=== PATIENT | male | born 1940 | race Caucasian/White ===

== ENCOUNTER → 2018-05-23 | Outpatient (CLI) | payer MEDICARE ==
--- NOTE | 2018-05-23 17:51 | CONS ---
CONSULTATION DATE OF SERVICE: 05/23/2018. A 77-year-old gentleman has been evaluated in sleep center for possible obstructive sleep apnea-hypopnea syndrome. HISTORY OF PRESENT ILLNESS/SLEEP-WAKE EVALUATION: Patient usual sleep schedule from 11:30-midnight until 7:15-8:00 a.m. basically 7 days a week. No problem with falling asleep. No TV in bedroom. Patient sleeps with his and according to her he snores. He wakes up from sleep once with nocturia. He sometimes takes 1 nap during the day from around 1 p.m. to 2:00 p.m. [place] Sleepiness Scale is 5. No history of hypnagogic hallucinations, sleep paralysis or cataplexy. PAST MEDICAL HISTORY: Positive for coronary artery disease, hypertension, hyperlipidemia, colon and rectal CA. Patient has short episodes of extra beats recently has been evaluated by swim coach for possibility of cardiac arrhythmias with Holter monitor. PAST SURGICAL HISTORY: Stent insertion to coronary artery, surgery for colorectal CA, colostomy, presently surgery for right hand middle finger, surgical treatment of skin CA. MEDICATIONS: Metoprolol, spironolactone, lisinopril, aspirin, atorvastatin, and Eliquis. SOCIAL HISTORY: Negative for smoking or using alcohol. FAMILY HISTORY: Positive for hypertension, heart problems, cancer. REVIEW OF SYSTEMS: Occasional awakenings from sleep, sometimes sleepiness during the day. PHYSICAL EXAM: GENERAL 77-year-old gentleman without distress. VITAL SIGNS BP of 130/75, HR 52, RR 14, height 5 feet 6 inches, weight 210.2, body mass index 33.8, temperature 97.9, oxygen saturation on room air 98%. HEENT PERRLA, EOMI, evaluation of oropharynx showed moderately to extremely low position of soft palate, wide pillars, small oropharyngeal air space. Slight restriction of nasal breathing bilaterally. Neck Supple, no JVD. Thyroid is not palpable. Wide neck 17 inches in circumference. LUNGS Clear to percussion and to auscultation. Good air exchange. No wheezing or rhonchi. HEART S1, S2 regular. No murmurs, gallops, or rubs. ABDOMEN Obese. Soft and nontender. Bowel sounds are present. No organomegaly appreciated. EXTREMITIES No clubbing or cyanosis. A P MECHANIC Awake, alert, and oriented X3. Cranial nerves 2 to 7 intact. There is no fasciculation or atrophy. noted. No focal deficits observed. IMPRESSION: 1. Snoring, wide neck, small oropharyngeal air space, awakenings with nocturia, sometimes sleepiness during the day with nap. Possible obstructive sleep apnea- hypopnea syndrome. 2. Obesity, BMI 33.8. 3. Hypertension. 4. Coronary artery disease, status post stent insertion. 5. Hyperlipidemia. 6. History of colorectal carcinoma, status post surgical treatment, presently, colostomy. 7. Hyperlipidemia. 8. History of skin carcinoma treated surgically on the left arm. 9. Status post surgical treatment of finger of right hand. PLAN: 1. Polysomnography for evaluation of patient's breathing during sleep. 2. CPAP/BiPAP titration if sleep study confirms obstructive sleep apnea-hypopnea syndrome. 3. Preferable position during sleep on the side. 4. No driving if patient feels any sleepiness. 5. I will see patient for follow up visit to explain results of testing and following plan. Thank you very much for referring this patient for consultation. Sincerely, Kevin Moody MD, PhD, FAASM Diplomat of [employer] Rounding Machine Operator of [facility] [place] MMODL / IJN: [id number] /
== END | disposition home or self-care (01) ==
LOC: SLEEP 15:31
PROVIDERS: ATTEND Internal Medicine
DX: R06.83 Snoring (principal); R35.1 Nocturia; J39.2 Other diseases of pharynx; I25.10 Atherosclerotic heart disease of native coronary artery without angina pectoris; I10 Essential (primary) hypertension; E78.5 Hyperlipidemia, unspecified; E66.9 Obesity, unspecified; Z85.048 Personal history of other malignant neoplasm of rectum, rectosigmoid junction, and anus; Z93.3 Colostomy status; Z95.5 Presence of coronary angioplasty implant and graft; Z85.828 Personal history of other malignant neoplasm of skin; Z79.82 Long term (current) use of aspirin; Z79.02 Long term (current) use of antithrombotics/antiplatelets; Z79.899 Other long term (current) drug therapy; Z68.33 Body mass index [BMI] 33.0-33.9, adult; Z79.01 Long term (current) use of anticoagulants; Z85.038 Personal history of other malignant neoplasm of large intestine
CPT/HCPCS: 99211

== ENCOUNTER → 2018-09-19 | Outpatient (CLI) | payer MEDICARE ==
--- NOTE | 2018-09-19 15:14 | PN ---
PROGRESS NOTE DATE OF SERVICE: 09/19/2018 A 77-year-old gentleman who has been followed in the Sleep Center for treatment of obstructive sleep apnea-hypopnea syndrome. Recently patient had diagnostic polysomnogram and CPAP titration. I discussed results of sleep studies with patient in detail. He has severe sleep apnea and with CPAP respiration was fully normalized. Today is his first visit after he received CPAP unit. He is able to use equipment every night for the whole night without significant problems related to mask fitting, pressure or humidification. [place] Sleepiness Scale today 7, which is normal. I checked his CPAP unit. CPAP pressure is 6 cm of water. Usage is 100% of the time more than 4 hours every 6.6 hours per night. Leak only 6 L per minute which is normal. . Apnea-hypopnea index was 1.0, which is perfect. MEDICATIONS: Metoprolol, lisinopril, aspirin, tamsulosin, atorvastatin, Eliquis, spironolactone, finasteride. PHYSICAL EXAM: Patient in no distress. BP 106/63, HR 56, RR 18, weight 213.8, temperature 97.6. OROPHARYNX: Extremely low position of soft palate. ABDOMEN: Slightly obese, colostoma. Neck Supple, no JVD. Thyroid is not palpable. LUNGS Clear to percussion and to auscultation. Good air exchange. No wheezing or rhonchi. HEART S1, S2 regular. No murmurs, gallops, or rubs. EXTREMITIES No clubbing or cyanosis. TELEPHONE SERVICE REPRESENTATIVE Awake, alert, and oriented X3. Cranial nerves 2 to 7 intact. There is no fasciculation or atrophy. noted. No focal deficits observed. IMPRESSION: 1. Severe obstructive sleep apnea-hypopnea syndrome, apnea-hypopnea index 41.3 with oxygen desaturation to 77.6% on full control with CPAP at 6 cm of water. Patient demonstrated 100% compliance with treatment, benefitting from treatment. 2. Hypertension. 3. Coronary artery disease, status post stent insertion. 4. History of colorectal CA, status post surgical treatment, colostoma. PLAN: 1. Patient will continue to use CPAP equipment every night for the whole night. 2. Watching weight. 3. Sleep hygiene with regular time in bed for at least 8 hours. 4. No driving if feeling sleepiness. 5. Will maintain prescription for all necessary CPAP supplies including mask, tube, filters. 6. Followup visit in 1 year. Thank you very much for allowing me to participate in the management of your patient. Sincerely, Kevin Moody MD, PhD, FAASM Diplomat of [employer] Personnel Arbitrator of [facility] [place] MMDIANEL / REINA: [id number] /
== END | disposition home or self-care (01) ==
LOC: SLEEP 10:19
PROVIDERS: ATTEND Internal Medicine
DX: G47.33 Obstructive sleep apnea (adult) (pediatric) (principal); I10 Essential (primary) hypertension; I25.10 Atherosclerotic heart disease of native coronary artery without angina pectoris; Z85.038 Personal history of other malignant neoplasm of large intestine; Z85.048 Personal history of other malignant neoplasm of rectum, rectosigmoid junction, and anus; Z95.5 Presence of coronary angioplasty implant and graft; Z99.89 Dependence on other enabling machines and devices; Z98.890 Other specified postprocedural states; Z79.82 Long term (current) use of aspirin; Z79.01 Long term (current) use of anticoagulants; Z79.899 Other long term (current) drug therapy

== ENCOUNTER 2019-06-11 06:56 | Day surgery (SDC) | payer MEDICARE ==
[2019-06-07 09:47] VITALS: BMI 34.3
[~2019-06-11 06:56] MED LIST: LACTATED RINGERS 1,000 ML IV SCH; LIDOCAINE 1% 20 ML VIAL (10MG/ML) FOR IV START INTRADERMA PRN
[2019-06-11 07:13] VITALS: TEMP 97.6
[2019-06-11] MEDS ORDERED: PROPOFOL 10 MG/ML 20 ML VIAL IV ONE (07:30)
[2019-06-11] MEDS ORDERED: LIDOCAINE 1% INJ 10MG/ML (20 ML MDV) ONE (07:30)
--- NOTE | 2019-06-11 07:53 | P.GSHP ---
History of Present Illness H&P Date: 06/11/19 Chief Complaint: History of rectal cancer This a 70-year-old male presents today for colonoscopy. Patient has. History of rectal cancer and abdominal perineal resection. Past Medical History Past Medical History: Coronary Artery Disease (CAD), Cancer, COPD, Deep Vein Thrombosis (DVT), Hyperlipidemia, Hypertension, Sleep Apnea/CPAP/BIPAP Additional Past Medical History / Comment(s): hx.colon cancer, SKIN CANCER colostomy, History of Any Multi-Drug Resistant Organisms: None Reported Past Surgical History: Adenoidectomy, Heart Catheterization With Stent, Hernia Repair, Tonsillectomy Additional Past Surgical History / Comment(s): colostomy Past Anesthesia/Blood Transfusion Reactions: No Reported Reaction Date of Last Stent Placement:: 2011 Smoking Status: Never smoker - Past Family History Mother Family Medical History: Cancer Additional Family Medical History / Comment(s): breast cancer Medications and Allergies Home Medications Medication Instructions Recorded Confirmed Type Aspirin [Adult Low Dose Aspirin EC] 81 mg PO DAILY 05/24/16 06/11/19 History Atorvastatin [Lipitor] 40 mg PO HS 05/24/16 06/11/19 History Lisinopril [Zestril] 20 mg PO DAILY 05/24/16 06/11/19 History Apixaban [Eliquis] 5 mg PO BID 06/07/19 06/11/19 History Finasteride [Proscar] 5 mg PO DAILY 06/07/19 06/11/19 History Metoprolol Succinate [Toprol Xl] 50 mg PO DAILY 06/07/19 06/11/19 History Spironolactone [Aldactone] 25 mg PO DAILY 06/07/19 06/11/19 History Tamsulosin [Flomax] 0.4 mg PO HS 06/07/19 06/11/19 History Allergies Allergy/AdvReac Type Severity Reaction Status Date / Time No Known Allergies Allergy Verified 06/07/19 09:11 Surgical - Exam Vital Signs Temp Pulse Resp BP 97.6 F 69 14 133/71 06/11/19 07:12 06/11/19 07:12 06/11/19 07:12 06/11/19 07:12 - General well developed, well nourished, no distress - Eyes PERRL - ENT normal pinna - Neck no masses - Respiratory normal expansion - Cardiovascular Rhythm: regular - Abdomen Abdomen: soft, non tender Assessment and Plan Assessment: History of rectal cancer. We'll perform colonoscopy.
--- NOTE | 2019-06-11 08:09 | P.OP ---
Date of Procedure: 06/11/19 Preoperative Diagnosis: Rectal cancer Postoperative Diagnosis: Diverticulosis Procedure(s) Performed: Colonoscopy Anesthesia: MAC Surgeon: Jostin Bui Pathology: none sent Condition: stable Description of Procedure: The patient's placed on the endoscopy table in supine position. He had a previous abdominoperineal resection. The patient's colostomy was in the left lower quadrant. There was some evidence of stenosis of the skin. Digital exam was performed. The colonoscope was then placed patient's colostomy and passed with colon. Scope could not be passed beyond the transverse colon secondary to tortuosity valve. Scope was withdrawn there is extensive diverticular changes of the transverse colon and descending colon. There is known to any polyps or tumors. Scope was withdrawn for patient.
[2019-06-11 08:14] VITALS: RESP 16
[2019-06-11 08:29] VITALS: BP 108/63; PULSE 84
== END 2019-06-11 08:48 | disposition home or self-care (01) ==
LOC: ORWHC2ENDO 06:56
PROVIDERS: ATTEND Surgery
DX: Z85.048 Personal history of other malignant neoplasm of rectum, rectosigmoid junction, and anus (principal); K57.30 Diverticulosis of large intestine without perforation or abscess without bleeding; E78.5 Hyperlipidemia, unspecified; I10 Essential (primary) hypertension; I25.10 Atherosclerotic heart disease of native coronary artery without angina pectoris; J44.9 Chronic obstructive pulmonary disease, unspecified; Z85.828 Personal history of other malignant neoplasm of skin; Z86.718 Personal history of other venous thrombosis and embolism; Z93.3 Colostomy status; Z99.89 Dependence on other enabling machines and devices; Z95.5 Presence of coronary angioplasty implant and graft; Z80.3 Family history of malignant neoplasm of breast; Z86.711 Personal history of pulmonary embolism; G47.33 Obstructive sleep apnea (adult) (pediatric); Z79.899 Other long term (current) drug therapy; Z79.01 Long term (current) use of anticoagulants; Z79.82 Long term (current) use of aspirin
CPT/HCPCS: 44388; J2001; J2704

== ENCOUNTER → 2019-08-08 | Outpatient (CLI) | payer MEDICARE ==
--- NOTE | 2019-08-08 12:05 | PN ---
PROGRESS NOTE DATE OF SERVICE: 08/08/2019 This is a 78-year-old gentleman who has been followed in the Sleep Center for treatment of obstructive sleep apnea-hypopnea syndrome. The patient continued to use his CPAP equipment on practically every night. She missed several nights during this month because she had flu symptoms and significant discharges from the nose. [place] Sleepiness Scale is 6, which is normal. I checked his CPAP unit. CPAP pressure is 6 cm of water. Usage is 24/30 nights for more than 4 hours and total usage 27/30 nights. Average usage is 6 hours per night. Leak is only 2 L/minute. Apnea-hypopnea index only 0.9 which is absolutely perfect. MEDICATIONS: , tamsulosin, Eliquis, Atorvastatin, Spironolactone, metoprolol, lisinopril, aspirin. PHYSICAL EXAM: Patient in no distress. BP 113/50, HR 48, RR 16, height 5 foot, 6 inches, weight 210 pounds which is 3 pounds less than during the previous visit one year ago. Body mass index 33.8, temperature 97.5, oxygen saturation at room air 98%. Oropharynx extremely low soft palate, Mallampati 4. HEART: S1, S2, bradycardia. ABDOMEN: Slightly obese. NECK: Supple, no JVD. Thyroid is not palpable. LUNGS: Clear to percussion and to auscultation. Good air exchange. No wheezing or rhonchi. EXTREMITIES: No clubbing or cyanosis. DIRECTOR DATA ARCHITECTURE: Awake, alert, and oriented X3. Cranial nerves 2 to 7 intact. There is no fasciculation or atrophy. noted. No focal deficits observed. IMPRESSION: 1. Severe obstructive sleep apnea-hypopnea syndrome; apnea-hypopnea index 41.3 on full control with CPAP at the pressure of 6 cm of water. Patient demonstrated great compliance with treatment. benefitting from treatment. 2. Hypertension. 3. Coronary artery disease, status post stent insertion. 4. History of for colorectal carcinoma, status post surgical treatment. 5. Status post reversed colostomy. 6. Status post tonsillectomy. 7. Status post hernia repair. PLAN: 1. Patient will continue to use CPAP equipment every night for the whole night. 2. Prescription for all necessary CPAP supplies including mask, tube, filters. 3. Watching and losing weight. 4. Sleep hygiene with regular time in bed for 7.5 to 8 hours. 5. No driving if feeling sleepiness. 6. Followup visit in 1 year or earlier if patient has any problems. Thank you very much for allowing me to participate in the management of your patient. Sincerely, Kevin Moody MD, PhD, FAASM Diplomat of [employer] Wash Test Checker of [facility] [place] MMODL / SHARRIN: [id number] /
== END | disposition home or self-care (01) ==
LOC: SLEEP 10:37
PROVIDERS: ATTEND Internal Medicine
DX: G47.33 Obstructive sleep apnea (adult) (pediatric) (principal); I10 Essential (primary) hypertension; I25.10 Atherosclerotic heart disease of native coronary artery without angina pectoris; Z90.89 Acquired absence of other organs; Z95.5 Presence of coronary angioplasty implant and graft; Z85.038 Personal history of other malignant neoplasm of large intestine; Z85.048 Personal history of other malignant neoplasm of rectum, rectosigmoid junction, and anus; Z98.890 Other specified postprocedural states; Z99.89 Dependence on other enabling machines and devices; Z79.01 Long term (current) use of anticoagulants; Z79.82 Long term (current) use of aspirin; Z79.899 Other long term (current) drug therapy

== ENCOUNTER → 2020-03-23 | Outpatient (CLI) | payer MEDICARE ==
--- NOTE | 2020-03-23 15:28 | XR ---
EXAMINATION TYPE: XR chest 2V DATE OF EXAM: 03/23/2020 COMPARISON: Chest x-ray December 21, 2012. HISTORY: Dry cough. TECHNIQUE: Frontal and lateral views of the chest are obtained. FINDINGS: There is no focal air space opacity, pleural effusion, or pneumothorax seen. The cardiac silhouette size is within normal limits with atherosclerotic change in ectatic thoracic aorta now rajiv ntified. The osseous structures are intact. IMPRESSION: No suspicious acute pulmonary process.
--- NOTE | 2020-03-23 15:41 | US ---
EXAMINATION TYPE: US kidneys/renal and bladder DATE OF EXAM: 03/23/2020 COMPARISON: NONE CLINICAL HISTORY: N18.9 Chronic kidney disease. CKD EXAM MEASUREMENTS: Right Kidney: 9.3 x 4.6 x 5.1 cm Left Kidney: 10.0 x 4.5 x 4.1 cm Right Kidney: anechoic area seen laterally sub centimeter and echogenic area inf measuring 2 cm. Left Kidney: Echogenic area seen mid pole 1.4 cm. Bladder: Anechoic Bilateral Jets seen: No There is no evidence for hydronephrosis at this point in time. Possible nonobstructing bilateral re nal calculi lower pole right kidney and midpole of the left kidney. The urinary bladder is anechoic. IMPRESSION: No hydronephrosis is evident bilaterally. Consider abdominal KUB x-ray correlation for po ssible nonobstructing bilateral renal calculi.
== END | disposition home or self-care (01) ==
LOC: RADUSWWP 14:51
PROVIDERS: ATTEND Family Medicine
DX: N18.9 Chronic kidney disease, unspecified (principal); R91.8 Other nonspecific abnormal finding of lung field; R05 Cough
CPT/HCPCS: 71046; 76770

== ENCOUNTER → 2020-09-23 | Outpatient (CLI) | payer MEDICARE ==
--- NOTE | 2020-09-23 20:18 | SFUN ---
SLEEP CENTER FOLLOW UP NOTE DATE OF SERVICE: 09/23/2020 This is a 79-year-old gentleman who has been followed in Sleep Center for treatment of obstructive sleep apnea-hypopnea syndrome. The patient is successfully continuing to use his CPAP equipment every night. He sleeps well with it. No snoring. [place] Sleepiness Scale today is 5, which is normal. I checked his CPAP unit. CPAP pressure is 6 cm of water. Usage is 25/30 nights for more than 4 hours. Average usage is 5.7 hours per night. Otherwise, 27/30 nights. Leak is 5 L/minute, which is normal. Apnea-hypopnea index is only 0.4, which is perfect. MEDICATIONS: 1. Eliquis 5 mg twice a day. 2. Atorvastatin 40 mg once a day. 3. Spironolactone 25 mg once a day. 4. Lisinopril 20 mg once a day. 5. Aspirin 81 mg once a day. PHYSICAL EXAMINATION: GENERAL: A pleasant patient in no distress. VITAL SIGNS: BP 123/80, HR 60, RR 15, height 5 feet 6 inches, weight 194, BMI 31.3, temperature 97.7, oxygen saturation at room air 97%. HEENT: PERRLA, EOMI. Evaluation of oropharynx showed tongue protrudes midline. Extremely low position of soft palate. Mallampati IV. NECK: Supple. No JVD. Thyroid is not palpable. LUNGS: Clear to percussion and to auscultation. Good air exchange. No wheezing or rhonchi. HEART: S1, S2 regular. No murmurs, gallops or rubs. ABDOMEN: Soft and nontender. Bowel sounds are present. No organomegaly appreciated. EXTREMITIES: No clubbing or cyanosis. STEELWORKER: Awake, alert, and oriented X3. Cranial nerves 2 to 7 intact. There is no fasciculation or atrophy. noted. No focal deficits observed. IMPRESSION: 1. Severe obstructive sleep apnea-hypopnea syndrome; apnea-hypopnea index 41.3. The patient demonstrated great compliance with treatment. Normal respiration on CPAP. 2. Hypertension. 3. Coronary artery disease, status post stent insertion. 4. History of colorectal carcinoma, status post surgical treatment. 5. Status post reversed colostomy. 6. Status post tonsillectomy. 7. Status post hernia repair. PLAN: 1. Patient will continue to use PAP equipment every night for the whole night. 2. Sleep hygiene with regular time in bed for at least 7-1/2 to 8 hours. 3. Precautions related to driving. No driving if feeling sleepiness. 4. I will maintain all necessary prescription for PAP supplies including mask, tube, filters. 5. Watching weight. 6. No driving if feeling sleepiness. 7. Follow-up visit in 6 months or earlier if patient has any problems. Thank you very much for allowing me to participate in the management of your patient. Sincerely, Kevin Moody MD, PhD, FAASM Diplomat of [employer] [employer] Oyster Bed Worker of [facility] [place] MMODL / IJN: [id number] /
== END | disposition home or self-care (01) ==
LOC: SLEEP 16:38
PROVIDERS: ATTEND Internal Medicine
DX: G47.33 Obstructive sleep apnea (adult) (pediatric) (principal); I10 Essential (primary) hypertension; I25.10 Atherosclerotic heart disease of native coronary artery without angina pectoris; Z95.5 Presence of coronary angioplasty implant and graft; Z99.89 Dependence on other enabling machines and devices; Z79.01 Long term (current) use of anticoagulants; Z79.899 Other long term (current) drug therapy; Z79.891 Long term (current) use of opiate analgesic; Z79.82 Long term (current) use of aspirin; Z98.890 Other specified postprocedural states

== ENCOUNTER → 2021-03-12 | Outpatient (CLI) | payer MEDICARE ==
--- NOTE | 2021-03-12 15:20 | FL ---
EXAMINATION TYPE: FL UGI air DATE OF EXAM: 03/12/2021 COMPARISON: NONE HISTORY: 80-year-old male are 1 1.2, nausea and vomiting TECHNIQUE: A double contrast UGI study is performed. A total of 2 minutes 0 seconds of fluoroscopic time was utilized during procedure and 82 images obtai pio. FINDINGS: The esophagus shows normal motility and emptying into the stomach. No evidence of stricture. There is a moderate-sized hiatal hernia. Unable to elicit any reflux during the course of the exam. The stomach shows normal distensibility, peristalsis, and mucosal folds. However, along the greater curvature at the level of the mid gastric body, there is questionable filling defect versus normal co ntour abnormality. For example, refer to image 63 of 82. The duodenal bulb, sweep, and proximal small bowel loops are unremarkable. IMPRESSION: 1. Moderate-sized hiatal hernia. Unable to elicit gastroesophageal reflux during the course of the ex am. 2. Questionable filling defect along the greater curvature of the mid gastric body. Recommend direct visualization to exclude a mucosal lesion/neoplasm here.
== END | disposition home or self-care (01) ==
LOC: RADUSWWP 09:47
PROVIDERS: ATTEND Family Medicine
DX: K44.9 Diaphragmatic hernia without obstruction or gangrene (principal); K21.9 Gastro-esophageal reflux disease without esophagitis
CPT/HCPCS: 74246

== ENCOUNTER 2021-03-30 11:38 | Inpatient (IN) | payer MEDICARE ==
[2021-03-30] MEDS ORDERED: ALPRAZolam 0.25 MG TAB PO PRN (18:03)
[2021-03-30] MEDS ORDERED: ALPRAZolam 0.5 MG TAB PO PRN (18:03)
[2021-03-30] MEDS ORDERED: NITROGLYCERIN SL TABS 0.4 MG TAB SUBLINGUAL PRN (18:03)
[2021-03-30] MEDS ORDERED: SODIUM CHLORIDE 0.9% 1,000 ML in EMPTY BAG 1 BAG IV ONE (18:03)
[2021-03-30 19:06] LABS: Basophils % (A) 0 %; Eosinophils # (A) 0.2 k/uL (0-0.7); Eosinophils % (A) 4 %; HCT 26.4 % (39.0-53.0); Lymphocytes # (A) 0.7 k/uL (1.0-4.8); Lymphocytes % (A) 15 %; MCH 30.9 pg (25.0-35.0); MCHC 34.2 g/dL (31.0-37.0); MCV 90.4 fL (80.0-100.0); Mean Platelet Volume 8.4; Monocytes # (A) 0.5 k/uL (0-1.0); Monocytes % (A) 11 %; Neutrophils # (A) 3.4 k/uL (1.3-7.7); Neutrophils % (A) 69 %; Platelet Count 116 k/uL (150-450); RBC 2.92 m/uL (4.30-5.90); RDW 14.3 % (11.5-15.5); WBC 4.9 k/uL (3.8-10.6)
[2021-03-30 19:07] LABS: Calcium 8.6 mg/dL (8.4-10.2); Potassium 4.7 mmol/L (3.5-5.1)
[2021-03-30] MEDS: METOPROLOL TARTRATE 25 MG TAB PO SCH (20:26)
[2021-03-30] MEDS: HEPARIN SODIUM,PORCINE/PF 5,000 UNIT/0.5 ML SYRINGE SQ SCH (20:26)
[2021-03-30] MEDS: AMIODARONE 200 MG TAB PO SCH (20:26)
[2021-03-30] MEDS ORDERED: FERROUS SULFATE 325 MG TAB PO SCH (21:00)
[2021-03-31] MEDS ORDERED: ATORVASTATIN 80 MG TAB PO ONE (06:00)
[2021-03-31] MEDS ORDERED: ASPIRIN 325 MG TAB PO ONE (06:00)
[2021-03-31] MEDS: ATORVASTATIN 40 MG TAB PO SCH (06:10)
[2021-03-31] MEDS: CLOPIDOGREL 75 MG TAB PO SCH (06:16)
[2021-03-31] MEDS: HEPARIN SODIUM,PORCINE/PF 5,000 UNIT/0.5 ML SYRINGE SQ SCH ×2 (06:16→20:15)
[2021-03-31] MEDS: LOSARTAN 25 MG TAB PO SCH (06:16)
[2021-03-31] MEDS: METOPROLOL TARTRATE 25 MG TAB PO SCH ×2 (06:16→20:15)
[2021-03-31] MEDS: PANTOPRAZOLE 40 MG TABLET PO SCH (06:16)
[2021-03-31] MEDS: AMIODARONE 200 MG TAB PO SCH ×3 (06:16→20:15)
[2021-03-31] MEDS: TAMSULOSIN 0.4 MG CAP.ER.24H PO SCH (06:16)
[2021-03-31] MEDS ORDERED: carvediloL 3.125 MG TAB PO SCH (07:30)
[2021-03-31] MEDS ORDERED: SPIRONOLACTONE 25 MG TAB PO SCH (09:00)
[2021-03-31] MEDS ORDERED: lisinopriL 10 MG TAB PO SCH (09:00)
[2021-03-31] MEDS ORDERED: IV FLUID CONTINUATION 1,000 ML IV ONE (09:09)
[2021-03-31] MEDS: MIDAZOLAM 2 MG/2 ML VIAL IVP ONE ×2 (09:14→09:16)
[2021-03-31] MEDS ORDERED: HEPARIN SODIUM 1,000 UN/ML (10ML VL) ONE (09:15)
[2021-03-31] MEDS ORDERED: LIDOCAINE 1% INJ 10MG/ML (20 ML MDV) SQ ONE (09:15)
[2021-03-31] MEDS ORDERED: HEPARIN SODIUM 1,000 UN/ML (10ML VL) IVP ONE (09:19)
[2021-03-31] MEDS ORDERED: fentaNYL (PF) 50 MCG/ML 2 ML AMP ONE (09:28)
[2021-03-31] MEDS ORDERED: fentaNYL (PF) 50 MCG/ML 2 ML AMP IVP ONE (09:29)
[2021-03-31] MEDS ORDERED: NITROGLYCERIN 1000MCG/10ML SYRINGE INTRACORON ONE (09:38)
[2021-03-31] MEDS ORDERED: MAG HYDROX/AL HYDROX/SIMETH 30 ML CUP PO PRN (09:43)
[2021-03-31] MEDS ORDERED: ZOLPIDEM 5 MG TAB PO PRN (09:43)
[2021-03-31] MEDS ORDERED: ATROPINE SULFATE 0.1 MG/ML 10ML SYRINGE IV PRN (09:43)
[2021-03-31] MEDS ORDERED: RX INFO: IV CONTRAST WAS GIVEN 1 EACH MISC MISCELLANE PRN (09:43)
[2021-03-31] MEDS ORDERED: IOPAMIDOL-370 125ML BTL INJ ONE (09:45)
[2021-03-31] MEDS ORDERED: SODIUM CHLORIDE 0.9% 1,000 ML IV SCH (09:45)
[2021-03-31] MEDS ORDERED: CLOPIDOGREL 75 MG TAB ONE (09:46)
[2021-03-31] MEDS ORDERED: CLOPIDOGREL 75 MG TAB PO ONE (09:50)
--- NOTE | 2021-03-31 10:43 | LTR ---
March 31, 2021 Dr. De Lenó Dear Dr. De León, Mr. Ministerio Mcdaniels was transferred yesterday from [facility] to [facility] where he underwent today successful stenting of the mid left anterior descending artery using drug-eluting stent with an excellent angiographic results and without any complication. Thank you for allowing me to participate in his care. MMCARLOS / SHARRIN: [id number] /
--- NOTE | 2021-03-31 10:43 | PTCA ---
PERCUTANEOUSTRANS CORORONARY ANGIOGRAPHY PERCUTANEOUS CORONARY INTERVENTION: DATE OF PROCEDURE: March 31, 2021 PERFORMING PHYSICIAN: Parker Salcedo MD. PROCEDURE PERFORMED: 1. Successful stenting of the mid left anterior descending artery using a 3.5 x 23 mm Xience drug-eluting stent with an excellent angiographic results and reduction of stenosis from 70% to 0%. INDICATION: This is an 80-year-old gentleman with coronary artery disease and prior stenting of the right coronary artery, who was admitted recently to [facility] with chest discomfort and ruled in for acute coronary syndrome. Because of that, a heart catheterization was advised. APPROACH: Right common femoral artery. COMPLICATION: None. LEVEL OF SEDATION: Moderate with sedation length of 25 minutes. PROCEDURE DESCRIPTION: After obtaining an informed consent, the patient was brought to the cardiac blood and plasma laboratory assistant. The right common femoral artery was cannulated using micropuncture technique under ultrasound guidance, the micropuncture wire passed easily then I placed a 6-[place] sheath at the right common femoral artery. At that point, anticoagulation was achieved using heparin with continuous ACT monitoring throughout the procedure. Subsequently, I did engage the left main using JL4 guide. I did wire the left main using a run-through wire. PTCA ballooning was performed using 3.0 x 15 mm balloon before I deployed the 5 x 23 mm Xience drug-eluting stent where the stent was positioned under fluoroscopic guidance and deployed under under 18 atmospheres for 20 seconds with the following angiogram showing excellent angiographic results. The procedure was completed without any complication. POSTPROCEDURE MANAGEMENT: 1. Dual anti-platelet therapy. 2. Aggressive cholesterol control. 3. Risk factor modifications. 4. Follow up with the patient. MMODL / IJN: [id number] /
[2021-03-31 12:32] VITALS: BMI 29.0
--- NOTE | 2021-03-31 13:04 | P.HPIM ---
History of Present Illness H&P Date: 03/30/21 Ministerio Mcdaniels, is an 80 year old male who was admitted to [facility] after presenting with chest pain and shortness of breath, he had elevated troponin, he was admitted to intensive care unit, patient had elevated BUN and creatinine, he was seen by nephrology and cardiology, he was maintained on IV heparin, patient was stabilized and was transferred to [facility] for cardiac catheterization. Review of Systems For HPI otherwise unremarkable Past Medical History Past Medical History: Coronary Artery Disease (CAD), Cancer, COPD, Deep Vein Thrombosis (DVT), Hyperlipidemia, Hypertension, Sleep Apnea/CPAP/BIPAP Additional Past Medical History / Comment(s): colon cancer, SKIN CANCER, colostomy History of Any Multi-Drug Resistant Organisms: None Reported Past Surgical History: Adenoidectomy, Heart Catheterization With Stent, Hernia Repair, Tonsillectomy Additional Past Surgical History / Comment(s): colostomy Past Anesthesia/Blood Transfusion Reactions: No Reported Reaction Date of Last Stent Placement:: 2008 Past Psychological History: No Psychological Hx Reported Smoking Status: Never smoker Past Alcohol Use History: None Reported Past Drug Use History: None Reported - Past Family History Mother Family Medical History: Cancer Additional Family Medical History / Comment(s): breast cancer Father Additional Family Medical History / Comment(s): valve replacement and pacemaker. Brother(s) Additional Family Medical History / Comment(s): CABG Medications and Allergies Home Medications Medication Instructions Recorded Confirmed Type Aspirin [Adult Low Dose Aspirin EC] 81 mg PO DAILY 05/24/16 03/30/21 History Atorvastatin [Lipitor] 40 mg PO DAILY 05/24/16 03/30/21 History Apixaban [Eliquis] 5 mg PO BID 06/07/19 03/30/21 History Spironolactone [Aldactone] 25 mg PO DAILY 06/07/19 03/30/21 History Carvedilol [Coreg] 3.125 mg PO AC-BID 03/30/21 03/30/21 History Ferrous Sulfate [Feosol] 325 mg PO BID 03/30/21 03/30/21 History Lisinopril [Zestril] 10 mg PO DAILY 03/30/21 03/30/21 History Allergies Allergy/AdvReac Type Severity Reaction Status Date / Time No Known Allergies Allergy Verified 03/30/21 17:06 Physical Exam Vitals: Vital Signs Temp Pulse Resp BP Pulse Ox 03/30/21 16:25 98.4 F 78 16 125/58 95 Intake and Output 03/30/21 03/30/21 03/30/21 06:59 14:59 22:59 Output Total 100 Balance -100 Output: Urine 100 Other: Voiding Method Indwelling Catheter Weight 84 kg In general patient is alert and oriented x 3 in no distress HEENT head normocephalic and atraumatic Neck is supple no JVD no goiter no lymphadenopathy no carotid bruit Chest examination is clear to auscultation no crackles no wheezing Cardiac exam reveals regular heart sounds S1 and S2 no gallops no murmurs Abdomen is soft nontender no organomegaly with normal bowel sounds Extremity exam reveals no edema no cyanosis or clubbing Neurological examination reveals no gross focal deficits Results CBC & Chem 7: 03/30/21 18:49 03/30/21 18:49 Thrombosis Risk Factor Assmnt - Choose All That Apply Any of the Below Risk Factors Present?: Yes Each Factor Represents 1 point: Obesity (BMI >25) Other Risk Factors: Yes Each Risk Factor Represents 3 Points: Age 75 years or older Other congenital or acquired thrombophilia - If yes, enter type in comment: No Thrombosis Risk Factor Assessment Total Risk Factor Score: 4 Thrombosis Risk Factor Assessment Level: Moderate Risk Assessment and Plan Assessment: 1. Acute coronary syndrome. Plans for cardiac catheterization on 03/31/2021 2. Ventricular tachycardia 3. Acute on chronic renal failure. Nephrology services have been consulted 4. History of essential hypertension 5. History of hyperlipidemia 6. History of coronary artery disease 7. History of colon cancer 8. History of anemia 9. History of COPD Continue normal saline at 75 Nephrology and cardiology services following Plans for cardiac catheterization 03/31/2031 Time with Patient: Greater than 30 (Greater than 60% of the total time spent in counseling and coordination of care)
--- NOTE | 2021-03-31 13:06 | P.PN ---
Subjective Progress Note Date: 03/31/21 Ministerio Mcdaniels, is an 80 year old male who was admitted to [facility] after presenting with chest pain and shortness of breath, he had elevated troponin, he was admitted to intensive care unit, patient had elevated BUN and creatinine, he was seen by nephrology and cardiology, he was maintained on IV heparin, patient was stabilized and was transferred to [facility] for cardiac catheterization. On 03/31/2021 patient is alert and oriented 3 currently resting flat in bed. Patient underwent cardiac catheterization today right femoral groin approach patient received stent to the LAD. Arterial sheath remains in place. Patient has been started on Plavix per cardiology services. At this time patient denies chest pain or shortness breath. Patient denies nausea vomiting or diarrhea. Patient denies any urinary burning or frequency Objective - Vital Signs Vital signs: Vital Signs Temp 97.8 F 03/31/21 08:05 Pulse 53 L 03/31/21 12:28 Resp 16 03/31/21 12:28 BP 104/70 03/31/21 12:28 Pulse Ox 99 03/31/21 12:28 Intake & Output 03/30/21 03/31/21 03/31/21 18:59 06:59 18:59 Intake Total 118 350 Output Total 100 700 250 Balance 18 -700 100 Weight 84 kg 84 kg 84 kg Intake: IV 350 Oral 118 0 Output: Urine 100 700 250 Other: Voiding Method Indwelling Catheter Indwelling Catheter Indwelling Catheter - Exam In general patient is alert and oriented x 3 in no distress HEENT head normocephalic and atraumatic Neck is supple no JVD no goiter no lymphadenopathy no carotid bruit Chest examination is clear to auscultation no crackles no wheezing Cardiac exam reveals regular heart sounds S1 and S2 no gallops no murmurs Abdomen is soft nontender no organomegaly with normal bowel sounds Extremity exam reveals no edema no cyanosis or clubbing Neurological examination reveals no gross focal deficits - Labs CBC & Chem 7: 03/30/21 18:49 03/30/21 18:49 Labs: Abnormal Lab Results - Last 24 Hours (Table) 03/30/21 03/30/21 Range/Units 18:49 18:49 RBC 2.92 L (4.30-5.90) m/uL Hgb 9.0 L D (13.0-17.5) gm/dL Hct 26.4 L (39.0-53.0) % Plt Count 116 L (150-450) k/uL Lymphocytes # 0.7 L (1.0-4.8) k/uL Sodium 136 L (137-145) mmol/L Chloride 109 H (98-107) mmol/L Carbon Dioxide 18 L (22-30) mmol/L BUN 30 H (9-20) mg/dL Creatinine 2.19 H (0.66-1.25) mg/dL Glucose 113 H (74-99) mg/dL Assessment and Plan Assessment: 1. Acute coronary syndrome. Status post cardiac cath with stent to the LAD 2. Ventricular tachycardia. patient started on amiodarone per cardiology 3. Acute on chronic renal failure. Nephrology services have been consulted 4. History of essential hypertension 5. History of hyperlipidemia 6. History of coronary artery disease 7. History of colon cancer 8. History of anemia 9. History of COPD Continue normal saline at 75 Nephrology and cardiology services following The labs ordered for a.m.
[2021-03-31 17:18] LABS: HCT 30.5 % (39.0-53.0); HGB 9.7 gm/dL (13.0-17.5); Hypochromasia Marked; MCHC 31.6 g/dL (31.0-37.0); Mean Platelet Volume 9.2; RBC 3.11 m/uL (4.30-5.90); RDW 14.3 % (11.5-15.5); WBC 6.9 k/uL (3.8-10.6)
[2021-03-31 17:22] LABS: MCV 98.2 fL (80.0-100.0)
[2021-03-31 17:23] LABS: Platelet Count 99 k/uL (150-450)
[2021-04-01] MEDS: PANTOPRAZOLE 40 MG TABLET PO SCH (06:33)
[2021-04-01 07:46] LABS: Calcium 8.8 mg/dL (8.4-10.2); Potassium 4.1 mmol/L (3.5-5.1)
[2021-04-01 07:47] LABS: Basophils % (A) 0 %; Eosinophils # (A) 0.1 k/uL (0-0.7); Eosinophils % (A) 2 %; HCT 27.3 % (39.0-53.0); Lymphocytes # (A) 0.9 k/uL (1.0-4.8); Lymphocytes % (A) 14 %; MCH 29.6 pg (25.0-35.0); Mean Platelet Volume 8.3; Monocytes # (A) 0.5 k/uL (0-1.0); Monocytes % (A) 8 %; Neutrophils # (A) 4.5 k/uL (1.3-7.7); Neutrophils % (A) 73 %; Platelet Count 140 k/uL (150-450); RBC 3.04 m/uL (4.30-5.90); RDW 14.6 % (11.5-15.5); WBC 6.2 k/uL (3.8-10.6)
[2021-04-01 07:51] LABS: MCV 89.7 fL (80.0-100.0)
[2021-04-01] MEDS: LOSARTAN 25 MG TAB PO SCH (09:01)
[2021-04-01] MEDS: ATORVASTATIN 40 MG TAB PO SCH (09:02)
[2021-04-01] MEDS: AMIODARONE 200 MG TAB PO SCH ×3 (09:02→23:24)
[2021-04-01] MEDS: CLOPIDOGREL 75 MG TAB PO SCH (09:02)
[2021-04-01] MEDS: ASPIRIN 81 MG PO SCH (09:02)
[2021-04-01] MEDS: TAMSULOSIN 0.4 MG CAP.ER.24H PO SCH (09:02)
[2021-04-01] MEDS: METOPROLOL TARTRATE 25 MG TAB PO SCH ×2 (09:02→20:24)
[2021-04-01] MEDS: HEPARIN SODIUM,PORCINE/PF 5,000 UNIT/0.5 ML SYRINGE SQ SCH ×2 (09:06→20:24)
--- NOTE | 2021-04-01 12:49 | CONS ---
CONSULTATION REASON FOR CONSULT: Renal failure. HISTORY OF PRESENT ILLNESS: The patient is an 80-year-old male who was transferred from [facility] for cardiac catheterization, which was done yesterday and coronary stent placement. The patient had initial catheterization on 03/29/2021 and was noted to have significant coronary artery disease and was transferred to [facility] for a stent placement. He did have his second cardiac catheterization yesterday with a coronary stent placed in the LAD. Patient was found to have acute kidney injury and bilateral obstructive uropathy with bilateral hydronephrosis and urine retention. He had a Meza catheter placed by Urology as the nursing staff was not able to place a Meza catheter. Renal function had improved with creatinine down from about 2.8 on initial admission to [facility] to 2.2. The patient is also maintained on IV fluids. His creatinine now is at 2.0. It appears that his Meza catheter was removed this morning and patient has not voided yet. Previous creatinine noted to be 1.3 on 09/07/2020. PAST MEDICAL HISTORY: Hypertension, coronary artery disease, COPD, DVT, hyperlipidemia, COPD and colon cancer with colostomy. PAST SURGICAL HISTORY: Adenoidectomy, cardiac catheterization, previous coronary stent, hernia repair, tonsillectomy, colostomy. SOCIAL HISTORY: Negative for smoking, drug abuse or alcohol abuse. MEDICATIONS: Medications at home prior to admission included aspirin, Lipitor, Eliquis, Aldactone, Coreg, iron, Zestril. ALLERGIES: NONE. REVIEW OF SYSTEMS: As per HPI. Other systems negative. No complaints of chest pains or shortness of breath. PHYSICAL EXAMINATION: Patient is comfortable, awake. He is alert and oriented x3, not in any acute distress. Blood pressure 116/45, heart rate 63 per minute, he is afebrile. Examination of the heart S1, S2. Examination of the lungs, bilateral breath sounds are heard. Abdomen is soft, nontender. Examination of lower extremities shows no evidence of edema. D[employer] exam grossly intact. LAB: Show sodium of 135, potassium 4.1, serum creatinine 2.0, BUN 22, hemoglobin 9.0 g/dL. ASSESSMENT: 1. Acute kidney injury, prerenal and obstructive uropathy. Renal function has improved with creatinine coming down to 2 from initial reading of about 2.8 at [facility]. Patient has been maintained on IV fluids. He also had a Meza catheter placed. However, this was removed this morning and we will continue to monitor. We will make sure that he is able to void prior to discharge. 2. Urine retention with bilateral hydronephrosis. Follow up with Urology as outpatient. If the patient fails the voiding trial, he will need to have the Meza catheter placed again prior to discharge. 3. Rule out chronic kidney disease. Previous creatinine 1.3 in 2019. 4. Status post acute myocardial infarction, status post coronary catheter and stent placement to LAD. Patient had a cardiac cath twice, which was on March 31 as well as March 29. PLAN: Check bladder scan and if found that patient is able to void prior to discharge, follow up with Urology and Nephrology post discharge. MMODL / IJN: [id number] /
--- NOTE | 2021-04-01 13:47 | P.PN ---
Subjective He is seen and examined resting comfortably laying flat in bed in no acute distress. Patient underwent successful stenting of the mid LAD yesterday with Dr. Salcedo. Blood pressure 116/45 heart rate 63 afebrile maintaining oxygen saturation on room air. Laboratory data reviewed, WBC 6.2, hemoglobin 9.0, platelets 140, sodium 135, potassium 4.1, creatinine 2.0. Currently maintained on amiodarone 200 mg 3 times a day, aspirin 81 mg daily, atorvastatin 40 mg daily, Plavix 75 mg daily, losartan 12.5 mg daily and Lopressor 25 mg twice a day. Echocardiogram from [facility] 45% global hypokinesia. Telemetry tracings reveal SR. He denies chest pain, shortness of breath, dizziness or palpitations. GENERAL: Well-appearing, well-nourished and in no acute distress. NECK: Supple without JVD or thyromegaly. LUNGS: Breath sounds clear to auscultation bilaterally. Respiration equal and unlabored. No wheezes, rales or rhonchi. HEART: Regular rate and rhythm without murmurs, rubs or gallops. S1 and S2 heard. EXTREMITIES: Normal range of motion, no edema. No clubbing or cyanosis. Peripheral pulses intact. Right femoral artery access site soft, non-tender, no bleeding or hematoma. ASSESSMENT NSTEMI Sustained monomorphic ventricular tachycardia Unstable angina Chronic kidney disease Hypertension Dyslipidemia PLAN Pt will require LifeVest secondary to sustained ventricular tachycardia in the setting of an acute IA to prevent sudden cardiac . Continue dual anti-platelet therapy. Ongoing telemetry monitoring. Nurse Practitioner note has been reviewed, I agree with a documented findings and plan of care. Patient was seen and examined. Objective - Vital Signs Vital signs: Vital Signs Temp 97.6 F 04/01/21 04:00 Pulse 63 04/01/21 04:00 Resp 18 04/01/21 04:00 BP 116/45 04/01/21 04:00 Pulse Ox 96 04/01/21 04:00 Intake & Output 03/31/21 04/01/21 04/01/21 18:59 06:59 18:59 Intake Total 350 240 Output Total 1275 900 Balance -925 -900 240 Weight 84 kg 87.5 kg Intake: IV 350 Oral 0 240 Output: Urine 1275 900 Other: Voiding Method Indwelling Catheter Indwelling Catheter - Labs CBC & Chem 7: 04/01/21 06:56 04/01/21 06:56 Labs: Abnormal Lab Results - Last 24 Hours (Table) 03/31/21 04/01/21 04/01/21 Range/Units 16:22 06:56 06:56 RBC 3.11 L 3.04 L (4.30-5.90) m/uL Hgb 9.7 L 9.0 L (13.0-17.5) gm/dL Hct 30.5 L 27.3 L (39.0-53.0) % Plt Count 99 L 140 L (150-450) k/uL Lymphocytes # 0.9 L (1.0-4.8) k/uL Sodium 135 L (137-145) mmol/L Chloride 109 H (98-107) mmol/L Carbon Dioxide 19 L (22-30) mmol/L BUN 22 H (9-20) mg/dL Creatinine 2.00 H (0.66-1.25) mg/dL
[2021-04-02] MEDS: PANTOPRAZOLE 40 MG TABLET PO SCH (06:24)
[2021-04-02 09:23] LABS: Calcium 8.7 mg/dL (8.4-10.2)
[2021-04-02] MEDS: HEPARIN SODIUM,PORCINE/PF 5,000 UNIT/0.5 ML SYRINGE SQ SCH ×2 (09:30→21:10)
[2021-04-02] MEDS: ATORVASTATIN 40 MG TAB PO SCH (09:31)
[2021-04-02] MEDS: TAMSULOSIN 0.4 MG CAP.ER.24H PO SCH (09:31)
[2021-04-02] MEDS: AMIODARONE 200 MG TAB PO SCH ×3 (09:31→21:10)
[2021-04-02] MEDS: CLOPIDOGREL 75 MG TAB PO SCH (09:31)
[2021-04-02] MEDS: ASPIRIN 81 MG PO SCH (09:31)
--- NOTE | 2021-04-02 09:39 | P.PN ---
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
--- NOTE | 2021-04-02 11:08 | P.PN ---
Subjective Progress Note Date: 04/01/21 Ministerio Mcdaniels, is an 80 year old male who was admitted to [facility] after presenting with chest pain and shortness of breath, he had elevated troponin, he was admitted to intensive care unit, patient had elevated BUN and creatinine, he was seen by nephrology and cardiology, he was maintained on IV heparin, patient was stabilized and was transferred to [facility] for cardiac catheterization. On 03/31/2021 patient is alert and oriented 3 currently resting flat in bed. Patient underwent cardiac catheterization today right femoral groin approach patient received stent to the LAD. Arterial sheath remains in place. Patient has been started on Plavix per cardiology services. At this time patient denies chest pain or shortness breath. Patient denies nausea vomiting or diarrhea. Patient denies any urinary burning or frequency On 04/01/2021 Patient was seen and examined on the medical floor, he is alert and oriented x 3 in no distress, he denies any complaints there is no fever or chills no headache or dizziness no chest pain no shortness of breath no palpitation no cough no nausea or vomiting no abdominal pain no diarrhea no blood in the stools no burning with urination no frequency or urgency and no hematuria, there is no weakness or numbness in any of the extremities no change in vision speech or gait. Objective - Vital Signs Vital signs: Vital Signs Temp 97.5 F L 04/01/21 08:00 Pulse 57 L 04/01/21 12:00 Resp 18 04/01/21 04:00 BP 105/54 04/01/21 12:00 Pulse Ox 100 04/01/21 12:00 Intake & Output 03/31/21 04/01/21 04/01/21 18:59 06:59 18:59 Intake Total 350 800 Output Total 1275 900 900 Balance -925 -900 -100 Weight 84 kg 87.5 kg Intake: IV 350 Oral 0 800 Output: Urine 1275 900 900 Other: Voiding Method Indwelling Catheter Indwelling Catheter Indwelling Catheter - Exam In general patient is alert and oriented x 3 in no distress HEENT head normocephalic and atraumatic Neck is supple no JVD no goiter no lymphadenopathy no carotid bruit Chest examination is clear to auscultation no crackles no wheezing Cardiac exam reveals regular heart sounds S1 and S2 no gallops no murmurs Abdomen is soft nontender no organomegaly with normal bowel sounds Extremity exam reveals no edema no cyanosis or clubbing Neurological examination reveals no gross focal deficits - Labs CBC & Chem 7: 04/01/21 06:56 04/02/21 08:31 Labs: Abnormal Lab Results - Last 24 Hours (Table) 03/31/21 04/01/21 04/01/21 Range/Units 16:22 06:56 06:56 RBC 3.11 L 3.04 L (4.30-5.90) m/uL Hgb 9.7 L 9.0 L (13.0-17.5) gm/dL Hct 30.5 L 27.3 L (39.0-53.0) % Plt Count 99 L 140 L (150-450) k/uL Lymphocytes # 0.9 L (1.0-4.8) k/uL Sodium 135 L (137-145) mmol/L Chloride 109 H (98-107) mmol/L Carbon Dioxide 19 L (22-30) mmol/L BUN 22 H (9-20) mg/dL Creatinine 2.00 H (0.66-1.25) mg/dL Assessment and Plan Assessment: 1. Acute coronary syndrome. Status post cardiac cath with stent to the LAD 2. Ventricular tachycardia. patient started on amiodarone per cardiology 3. Acute on chronic renal failure. Nephrology services have been consulted 4. History of essential hypertension 5. History of hyperlipidemia 6. History of coronary artery disease 7. History of colon cancer 8. History of anemia 9. History of COPD Continue normal saline at 75 Nephrology and cardiology services following The labs ordered for a.m.
--- NOTE | 2021-04-02 11:12 | P.PN ---
Subjective Progress Note Date: 04/02/21 Ministerio Mcdaniels, is an 80 year old male who was admitted to [facility] after presenting with chest pain and shortness of breath, he had elevated troponin, he was admitted to intensive care unit, patient had elevated BUN and creatinine, he was seen by nephrology and cardiology, he was maintained on IV heparin, patient was stabilized and was transferred to [facility] for cardiac catheterization. On 03/31/2021 patient is alert and oriented 3 currently resting flat in bed. Patient underwent cardiac catheterization today right femoral groin approach patient received stent to the LAD. Arterial sheath remains in place. Patient has been started on Plavix per cardiology services. At this time patient denies chest pain or shortness breath. Patient denies nausea vomiting or diarrhea. Patient denies any urinary burning or frequency On 04/01/2021 Patient was seen and examined on the medical floor, he is alert and oriented x 3 in no distress, he denies any complaints there is no fever or chills no headache or dizziness no chest pain no shortness of breath no palpitation no cough no nausea or vomiting no abdominal pain no diarrhea no blood in the stools no burning with urination no frequency or urgency and no hematuria, there is no weakness or numbness in any of the extremities no change in vision speech or gait. On 04/02/2021 patient is alert and oriented 3. Did discuss case with cardiology services patient to have quite fast in place prior to discharge. O rder has been placed awaiting LifeVest arrival. Per cardiology patient to be discharged on Plavix and aspirin. Hold eliquis for 1 month and then will address with cardiology services to resume. Patient is currently in sinus rhythm. At this time patient denies any chest pain or shortness of breath. Patient denies nausea vomiting or diarrhea. Patient denies any urinary burning or frequency. Patient did require Meza catheter to be reinserted this AM. Patient does follow with nephrology services outpatient and has required Meza catheter at home. Objective - Vital Signs Vital signs: Vital Signs Temp 98.8 F 04/01/21 20:00 Pulse 71 04/02/21 04:00 Resp 16 04/02/21 04:00 BP 93/47 04/02/21 04:00 Pulse Ox 100 04/02/21 04:00 Intake & Output 04/01/21 04/02/21 04/02/21 18:59 06:59 18:59 Intake Total 1140 480 Output Total 900 1890 Balance 240 -1890 480 Weight 80 kg Intake: Oral 1140 480 Output: Urine 900 1890 Other: Voiding Method Indwelling Catheter Indwelling Catheter - Exam In general patient is alert and oriented x 3 in no distress HEENT head normocephalic and atraumatic Neck is supple no JVD no goiter no lymphadenopathy no carotid bruit Chest examination is clear to auscultation no crackles no wheezing Cardiac exam reveals regular heart sounds S1 and S2 no gallops no murmurs Abdomen is soft nontender no organomegaly with normal bowel sounds Extremity exam reveals no edema no cyanosis or clubbing Neurological examination reveals no gross focal deficits - Labs CBC & Chem 7: 04/01/21 06:56 04/02/21 08:31 Labs: Abnormal Lab Results - Last 24 Hours (Table) 04/02/21 Range/Units 08:31 Sodium 135 L (137-145) mmol/L Chloride 108 H (98-107) mmol/L Carbon Dioxide 18 L (22-30) mmol/L BUN 24 H (9-20) mg/dL Creatinine 1.98 H (0.66-1.25) mg/dL Assessment and Plan Assessment: 1. Acute coronary syndrome. Status post cardiac cath with stent to the LAD 2. Ventricular tachycardia. patient started on amiodarone per cardiology 3. Acute on chronic renal failure. Nephrology services have been consulted. Current creatinine 1.98 and bun 24 4. History of essential hypertension 5. History of hyperlipidemia 6. History of coronary artery disease 7. History of colon cancer 8. History of anemia 9. History of COPD Continue normal saline at 75 Nephrology and cardiology services following Life vest ordered per cardiology prior to discharge
--- NOTE | 2021-04-02 11:21 | PN ---
PROGRESS NOTE Patient is seen for followup for acute kidney injury, mostly obstructive uropathy and currently also an element of contrast nephropathy as patient has had two cardiac catheterizations. He was transferred to [facility] from [facility] for a second cardiac catheterization and coronary artery stent placement. The patient's Meza catheter was removed yesterday. However, he was not able to void and, therefore, the catheter was placed again. Ultrasound at [facility] did show evidence of bilateral hydronephrosis. Patient is currently asymptomatic. He denies any significant complaints. There are plans for discharge today. PHYSICAL EXAMINATION: Blood pressure 93/47, heart rate 71 per minute. He is afebrile. Examination of the heart S1, S2. Examination of lungs, decreased breath sounds at bases. Abdomen is soft, nontender. Examination of lower extremities shows no evidence of edema. [employer] exam grossly intact. LAB: Show sodium 135, potassium 4.0, chloride 108, CO2 is 18, BUN 24, creatinine 1.98, hemoglobin 9.0 g/dL. ASSESSMENT: 1. Acute kidney injury on top of chronic kidney disease, baseline about 1.3 in September of 2020. The acute kidney injury is obstructive uropathy with possible prerenal component and currently with a component of acute tubular necrosis secondary to two cardiac catheterization and dye and contrast nephropathy. Renal function is stable. The patient can be discharged from nephrology standpoint with plans to follow up in about 1-2 weeks as outpatient. 2. Obstructive uropathy, bilateral hydronephrosis, urine retention, currently with indwelling Meza catheter. 3. Acute myocardial infarction status post cardiac catheterization x2 with coronary artery stent placement. 4. Benign prostatic hypertrophy maintained on Flomax, currently with indwelling Meza catheter. 5. Cardiomyopathy, ejection fraction of about 45%. 6. Wide-complex tachycardia on initial admission. PLAN: Patient can be discharged, follow up as outpatient in 1-2 weeks. MMODL / IJN: [id number] /
[2021-04-02] MEDS: LOSARTAN 25 MG TAB PO SCH (12:25)
[2021-04-02] MEDS: METOPROLOL TARTRATE 25 MG TAB PO SCH ×2 (12:25→21:10)
[2021-04-02] MEDS: DOCUSATE 100 MG CAP PO SCH (23:30)
[2021-04-03] MEDS: PANTOPRAZOLE 40 MG TABLET PO SCH (06:26)
[2021-04-03 07:44] LABS: Basophils % (A) 0 %; Eosinophils % (A) 0 %; HCT 29.1 % (39.0-53.0); HGB 9.6 gm/dL (13.0-17.5); Lymphocytes # (A) 0.7 k/uL (1.0-4.8); Lymphocytes % (A) 7 %; MCH 29.9 pg (25.0-35.0); MCHC 33.2 g/dL (31.0-37.0); MCV 90.2 fL (80.0-100.0); Mean Platelet Volume 8.5; Monocytes # (A) 0.8 k/uL (0-1.0); Monocytes % (A) 8 %; Neutrophils # (A) 7.6 k/uL (1.3-7.7); Neutrophils % (A) 82 %; Platelet Count 171 k/uL (150-450); RBC 3.22 m/uL (4.30-5.90); RDW 14.9 % (11.5-15.5); WBC 9.2 k/uL (3.8-10.6)
[2021-04-03 07:57] LABS: Albumin 3.2 g/dL (3.5-5.0); Calcium 8.7 mg/dL (8.4-10.2); Magnesium 1.5 mg/dL (1.6-2.3); Potassium 3.8 mmol/L (3.5-5.1); Total Bilirubin 0.7 mg/dL (0.2-1.3); Total Protein 5.8 g/dL (6.3-8.2)
[2021-04-03] MEDS: LOSARTAN 25 MG TAB PO SCH (08:25)
[2021-04-03] MEDS: AMIODARONE 200 MG TAB PO SCH ×3 (08:25→21:14)
[2021-04-03] MEDS: DOCUSATE 100 MG CAP PO SCH ×2 (08:25→19:40)
[2021-04-03] MEDS: ATORVASTATIN 40 MG TAB PO SCH (08:25)
[2021-04-03] MEDS: METOPROLOL TARTRATE 25 MG TAB PO SCH ×2 (08:25→19:40)
[2021-04-03] MEDS: CLOPIDOGREL 75 MG TAB PO SCH (08:25)
[2021-04-03] MEDS: TAMSULOSIN 0.4 MG CAP.ER.24H PO SCH (08:25)
[2021-04-03] MEDS: ASPIRIN 81 MG PO SCH (08:25)
[2021-04-03] MEDS: HEPARIN SODIUM,PORCINE/PF 5,000 UNIT/0.5 ML SYRINGE SQ SCH ×2 (08:26→19:40)
--- NOTE | 2021-04-03 09:24 | P.PN ---
Subjective Patient is seen in follow-up for acute kidney injury. Renal function is stable. Oral intake is poor. No chest pain or shortness of breath. Good urine output. Vital signs are stable. General: The patient appeared well nourished and normally developed. HEENT: Head exam is unremarkable. Neck is without jugular venous distension. LUNGS: Breath sounds decreased. HEART: Rate and Rhythm are regular. ABDOMEN: Soft, no distention. EXTREMITITES: No edema. Objective - Vital Signs Vital signs: Vital Signs Temp 98.2 F 04/03/21 08:22 Pulse 78 04/03/21 08:22 Resp 16 04/03/21 08:22 BP 103/59 04/03/21 08:22 Pulse Ox 96 04/03/21 08:50 Intake & Output 04/02/21 04/03/21 04/03/21 18:59 06:59 18:59 Intake Total 1200 200 240 Output Total 625 1070 Balance 575 -870 240 Weight 80.5 kg Intake: Oral 1200 200 240 Output: Urine 625 1070 Other: Voiding Method Indwelling Catheter # Voids 1 # Bowel Movements 1 - Labs CBC & Chem 7: 04/03/21 07:04 04/03/21 07:04 Labs: Abnormal Lab Results - Last 24 Hours (Table) 04/02/21 04/03/21 04/03/21 Range/Units 08:31 07:04 07:04 RBC 3.22 L (4.30-5.90) m/uL Hgb 9.6 L (13.0-17.5) gm/dL Hct 29.1 L (39.0-53.0) % Lymphocytes # 0.7 L (1.0-4.8) k/uL Sodium 135 L 131 L (137-145) mmol/L Chloride 108 H (98-107) mmol/L Carbon Dioxide 18 L 17 L (22-30) mmol/L BUN 24 H 25 H (9-20) mg/dL Creatinine 1.98 H 1.93 H (0.66-1.25) mg/dL Glucose 135 H (74-99) mg/dL Magnesium 1.5 L (1.6-2.3) mg/dL Total Protein 5.8 L (6.3-8.2) g/dL Albumin 3.2 L (3.5-5.0) g/dL Assessment and Plan Plan: Assessment: 1. Acute kidney injury secondary to ATN secondary to contrast-induced acute kidney injury as well as obstructive uropathy. Renal function stable. 2. Obstructive uropathy status post Meza catheter placement. 3. Acute myocardial infarction status post cardiac catheterization 2 with stent placement. 4. Hyponatremia secondary to acute kidney injury and poor solute intake. 5. Acute on chronic systolic CHF with ejection fraction of 45%. 6. Metabolic acidosis secondary to acute kidney injury. 7. Hypomagnesemia from poor intake. Plan: Add oral bicarbonate. 2 g IV magnesium sulfa today. 1500 mL fluid restriction. Encourage oral intake, particularly protein. Avoid nephrotoxins. Repeat electrolytes in the morning.
[2021-04-03] MEDS: MAGNESIUM SULFATE-D5W PMX 1 GM in DEXTROSE/WATER 1 100ML.BAG IVPB SCH ×2 (09:40→10:35)
[2021-04-03] MEDS ORDERED: DEXTROSE 5% IN WATER 100 ML with AMIODARONE 300 MG IV ONE (09:45)
[2021-04-03] MEDS: MEXILETINE 150 MG CAP PO SCH ×2 (10:12→21:14)
[2021-04-03] MEDS: SODIUM BICARBONATE TAB 650 MG TAB PO SCH ×3 (10:35→21:14)
--- NOTE | 2021-04-03 12:36 | P.PN ---
Progress Note - Text Procedure Synchronized electrical cardioversion for ventricular tachycardia, sustained an symptomatic with low blood pressure Diagnosis Ischemic cardio myopathy Recent cardiac stenting to the mid LAD Patient was admitted to [facility] with sustained fast and the tachycardia, greater than 200 bpm He has been on amiodarone for over a week He underwent coronary stenting to the mid LAD He has ischemic cardio myopathy with reduced LV systolic function of 45% This morning despite medical treatment for heart failure and amiodarone, he had a sustained episode of ventricular tachycardia with low blood pressure in the 80s Procedure Anesthesia was called for conscious sedation A 200 J biphasic shock converted the patient sinus rhythm Plan 1 dose of IV amiodarone 150 mg O1 to 2 hours Start mexiletine 150 mg 3 times a day Continue heart failure medications Cancel LifeVest Proceed with ICD implantation tomorrow Discussed with the patient and I discussed with anesthesia
--- NOTE | 2021-04-03 12:42 | P.PN ---
Progress Note - Text Patient was evaluated this morning He denies any chest discomfort. He feels weak and tired after the left cardioversion and ventricular tachycardia no orthopnea no angina On examination afebrile 98F, pulse rate in the 60s, blood pressure 94/56 mmHg Breath sounds are reduced bilaterally but there are no rhonchi no crackles Normal heart sounds normal S1 normal S2 No lower extremity edema Hemoglobin 9.6, normal white count of 9.2, rectal count of 171,000 Sodium 131, potassium 3.8, BUN 25 creatinine 1.93, improving Magnesium 1.5 Impression Ischemic cardio myopathy ejection fraction reportedly at 45% by 2-D echo at [facility] Ischemic cardio myopathy Recent non-Q-wave HI Stenting to the mid LAD Recurrent sustained ventricular tachycardia, hemodynamically significant Chronic kidney disease Hypomagnesemia Plan Continue aspirin and Plavix and statins for management of coronary artery disease status post HI Continue heart failure medications including beta blockers and losartan Add mexiletine to amiodarone IV magnesium followed by oral magnesium Proceed with dual-chamber ICD tomorrow for secondary prevention of sudden cardiac and management of bradycardia
[2021-04-03] MEDS ORDERED: MAGNESIUM SULFATE-D5W PMX 1 GM in DEXTROSE/WATER 1 100ML.BAG IVPB ONE (13:00)
[2021-04-03] MEDS ORDERED: ONDANSETRON 4 MG/2 ML VIAL IVP PRN (14:11)
--- NOTE | 2021-04-03 14:11 | P.PN ---
Subjective Progress Note Date: 04/03/21 Ministerio Mcdaniels, is an 80 year old male who was admitted to [facility] after presenting with chest pain and shortness of breath, he had elevated troponin, he was admitted to intensive care unit, patient had elevated BUN and creatinine, he was seen by nephrology and cardiology, he was maintained on IV heparin, patient was stabilized and was transferred to [facility] for cardiac catheterization. On 03/31/2021 patient is alert and oriented 3 currently resting flat in bed. Patient underwent cardiac catheterization today right femoral groin approach patient received stent to the LAD. Arterial sheath remains in place. Patient has been started on Plavix per cardiology services. At this time patient denies chest pain or shortness breath. Patient denies nausea vomiting or diarrhea. Patient denies any urinary burning or frequency On 04/01/2021 Patient was seen and examined on the medical floor, he is alert and oriented x 3 in no distress, he denies any complaints there is no fever or chills no headache or dizziness no chest pain no shortness of breath no palpitation no cough no nausea or vomiting no abdominal pain no diarrhea no blood in the stools no burning with urination no frequency or urgency and no hematuria, there is no weakness or numbness in any of the extremities no change in vision speech or gait. On 04/02/2021 patient is alert and oriented 3. Did discuss case with cardiology services patient to have quite fast in place prior to discharge. O rder has been placed awaiting LifeVest arrival. Per cardiology patient to be discharged on Plavix and aspirin. Hold eliquis for 1 month and then will address with cardiology services to resume. Patient is currently in sinus rhythm. At this time patient denies any chest pain or shortness of breath. Patient denies nausea vomiting or diarrhea. Patient denies any urinary burning or frequency. Patient did require Meza catheter to be reinserted this AM. Patient does follow with nephrology services outpatient and has required Meza catheter at home. On 04/03/2021 Patient was seen and examined on the medical floor, he is alert and oriented x 3 in no distress, he denies any complaints there is no fever or chills no headache or dizziness no chest pain no shortness of breath no palpitation no cough no nausea or vomiting no abdominal pain no diarrhea no blood in the stools no burning with urination no frequency or urgency and no hematuria, there is no weakness or numbness in any of the extremities no change in vision speech or gait. Patient had episodes of bradycardia and tachycardia this morning, he was reevaluated by Dr. Rogers and plan at this time we have changed to keeping patient in the hospital and proceeding with pacemaker defibrillator placement in a.m. tomorrow Objective - Vital Signs Vital signs: Vital Signs Temp 98.0 F 04/03/21 12:00 Pulse 59 L 04/03/21 13:45 Resp 16 04/03/21 13:45 BP 94/56 04/03/21 12:00 Pulse Ox 98 04/03/21 12:00 Intake & Output 04/02/21 04/03/21 04/03/21 18:59 06:59 18:59 Intake Total 1200 200 340 Output Total 625 1070 Balance 575 -870 340 Weight 80.5 kg Intake: Oral 1200 200 340 Output: Urine 625 1070 Other: Voiding Method Indwelling Catheter Indwelling Catheter # Voids 1 # Bowel Movements 1 - Exam In general patient is alert and oriented x 3 in no distress HEENT head normocephalic and atraumatic Neck is supple no JVD no goiter no lymphadenopathy no carotid bruit Chest examination is clear to auscultation no crackles no wheezing Cardiac exam reveals regular heart sounds S1 and S2 no gallops no murmurs Abdomen is soft nontender no organomegaly with normal bowel sounds Extremity exam reveals no edema no cyanosis or clubbing Neurological examination reveals no gross focal deficits - Labs CBC & Chem 7: 04/03/21 07:04 04/03/21 07:04 Labs: Abnormal Lab Results - Last 24 Hours (Table) 04/03/21 04/03/21 Range/Units 07:04 07:04 RBC 3.22 L (4.30-5.90) m/uL Hgb 9.6 L (13.0-17.5) gm/dL Hct 29.1 L (39.0-53.0) % Lymphocytes # 0.7 L (1.0-4.8) k/uL Sodium 131 L (137-145) mmol/L Carbon Dioxide 17 L (22-30) mmol/L BUN 25 H (9-20) mg/dL Creatinine 1.93 H (0.66-1.25) mg/dL Glucose 135 H (74-99) mg/dL Magnesium 1.5 L (1.6-2.3) mg/dL Total Protein 5.8 L (6.3-8.2) g/dL Albumin 3.2 L (3.5-5.0) g/dL Assessment and Plan Assessment: 1. Acute coronary syndrome. Status post cardiac cath with stent to the LAD 2. Ventricular tachycardia. patient started on amiodarone per cardiology 3. Acute on chronic renal failure. Nephrology services have been consulted. Current creatinine 1.98 and bun 24 4. History of essential hypertension 5. History of hyperlipidemia 6. History of coronary artery disease 7. History of colon cancer 8. History of anemia 9. History of COPD Continue normal saline at 75 Nephrology and cardiology services following Plan per cardiology at this time is to proceed with pacemaker defibrillator placement in a.m. tomorrow
[2021-04-04 01:50] LABS: Calcium 8.2 mg/dL (8.4-10.2); Magnesium 2.4 mg/dL (1.6-2.3); Potassium 3.7 mmol/L (3.5-5.1)
[2021-04-04] MEDS: SODIUM BICARBONATE TAB 650 MG TAB PO SCH ×3 (06:36→21:15)
[2021-04-04] MEDS: ATORVASTATIN 40 MG TAB PO SCH (06:36)
[2021-04-04] MEDS: METOPROLOL TARTRATE 25 MG TAB PO SCH ×2 (06:36→20:20)
[2021-04-04] MEDS: MEXILETINE 150 MG CAP PO SCH ×3 (06:36→21:15)
[2021-04-04] MEDS: ASPIRIN 81 MG PO SCH (06:36)
[2021-04-04] MEDS: PANTOPRAZOLE 40 MG TABLET PO SCH (06:36)
[2021-04-04] MEDS: CLOPIDOGREL 75 MG TAB PO SCH (06:37)
[2021-04-04] MEDS: HEPARIN SODIUM,PORCINE/PF 5,000 UNIT/0.5 ML SYRINGE SQ SCH ×2 (06:37→20:20)
[2021-04-04] MEDS: TAMSULOSIN 0.4 MG CAP.ER.24H PO SCH (06:37)
[2021-04-04] MEDS: AMIODARONE 200 MG TAB PO SCH ×3 (06:37→21:15)
[2021-04-04] MEDS ORDERED: ceFAZolin 1 GM in SODIUM CHLORIDE 0.9% 250 ML IRRIGATION PRN (07:00)
[2021-04-04] MEDS: DOCUSATE 100 MG CAP PO SCH ×2 (07:25→20:20)
[2021-04-04] MEDS ORDERED: MIDAZOLAM 2 MG/2 ML VIAL ONE (07:38)
[2021-04-04] MEDS ORDERED: IOPAMIDOL-250 100ML BTL IV ONE (07:56)
[2021-04-04] MEDS ORDERED: IV FLUID CONTINUATION 400 ML IV ONE (08:17)
[2021-04-04] MEDS ORDERED: LIDOCAINE 1% INJ 10MG/ML (20 ML MDV) SQ ONE (08:24)
[2021-04-04] MEDS: LOSARTAN 25 MG TAB PO SCH (09:35)
--- NOTE | 2021-04-04 09:38 | P.EPPROC ---
- EP Procedure Note Electrophysiology Procedure Note: (Extremity venogram 10 cc IV dye injected in the left arm Patent cephalic, subclavian, axillary and innominate veins Plan Proceed with dual-chamber ICD for secondary prevention of sudden cardiac
[2021-04-04] MEDS ORDERED: ACETAMINOPHEN TAB 325 MG TAB PO PRN (09:39)
--- NOTE | 2021-04-04 09:44 | P.EPPROC ---
- EP Procedure Note Electrophysiology Procedure Note: Diagnosis Ischemic cardio myopathy Recurrent sustained ventricular tachycardia with hypotension requiring electrical cardioversion VT rates between 182 greater than 200 beats a minute VT morphology as follows Right bundle branch block pattern broad wide, QRS negatively oriented in leads 1, aVL and lead II, upright in 3 and aVF Procedure Successful dual-chamber ICD implantation DFT deferred at implant Plan Noninvasive program stimulation testing in 6 weeks Continue mexiletine and amiodarone
[2021-04-04] MEDS: SODIUM CHLORIDE TAB 1 GM TAB PO SCH (10:16)
[2021-04-04] MEDS: MAGNESIUM OXIDE 400 MG TAB PO SCH (11:16)
--- NOTE | 2021-04-04 11:17 | P.PN ---
Subjective Progress Note Date: 04/04/21 Ministerio Mcdaniels, is an 80 year old male who was admitted to [facility] after presenting with chest pain and shortness of breath, he had elevated troponin, he was admitted to intensive care unit, patient had elevated BUN and creatinine, he was seen by nephrology and cardiology, he was maintained on IV heparin, patient was stabilized and was transferred to [facility] for cardiac catheterization. On 03/31/2021 patient is alert and oriented 3 currently resting flat in bed. Patient underwent cardiac catheterization today right femoral groin approach patient received stent to the LAD. Arterial sheath remains in place. Patient has been started on Plavix per cardiology services. At this time patient denies chest pain or shortness breath. Patient denies nausea vomiting or diarrhea. Patient denies any urinary burning or frequency On 04/01/2021 Patient was seen and examined on the medical floor, he is alert and oriented x 3 in no distress, he denies any complaints there is no fever or chills no headache or dizziness no chest pain no shortness of breath no palpitation no cough no nausea or vomiting no abdominal pain no diarrhea no blood in the stools no burning with urination no frequency or urgency and no hematuria, there is no weakness or numbness in any of the extremities no change in vision speech or gait. On 04/02/2021 patient is alert and oriented 3. Did discuss case with cardiology services patient to have quite fast in place prior to discharge. O rder has been placed awaiting LifeVest arrival. Per cardiology patient to be discharged on Plavix and aspirin. Hold eliquis for 1 month and then will address with cardiology services to resume. Patient is currently in sinus rhythm. At this time patient denies any chest pain or shortness of breath. Patient denies nausea vomiting or diarrhea. Patient denies any urinary burning or frequency. Patient did require Meza catheter to be reinserted this AM. Patient does follow with nephrology services outpatient and has required Meza catheter at home. On 04/03/2021 Patient was seen and examined on the medical floor, he is alert and oriented x 3 in no distress, he denies any complaints there is no fever or chills no headache or dizziness no chest pain no shortness of breath no palpitation no cough no nausea or vomiting no abdominal pain no diarrhea no blood in the stools no burning with urination no frequency or urgency and no hematuria, there is no weakness or numbness in any of the extremities no change in vision speech or gait. Patient had episodes of bradycardia and tachycardia this morning, he was reevaluated by Dr. Rogers and plan at this time we have changed to keeping patient in the hospital and proceeding with pacemaker defibrillator placement in a.m. tomorrow On 04/04/2021 Patient was seen and examined on the medical floor, he is alert and oriented x 3 in no distress, he denies any complaints there is no fever or chills no headache or dizziness no chest pain no shortness of breath no palpitation no cough no nausea or vomiting no abdominal pain no diarrhea no blood in the stools no burning with urination no frequency or urgency and no hematuria, there is no weakness or numbness in any of the extremities no change in vision speech or gait. Patient is scheduled for dual-chamber ICD placement by Dr. Rogers today Objective - Vital Signs Vital signs: Vital Signs Temp 97.7 F 04/04/21 07:33 Pulse 58 L 04/04/21 10:45 Resp 16 04/04/21 10:45 BP 79/44 04/04/21 10:45 Pulse Ox 97 04/04/21 10:45 Intake & Output 04/03/21 04/04/21 04/04/21 18:59 06:59 18:59 Intake Total 340 250 Output Total 250 1280 Balance 90 -1280 250 Weight 83.5 kg Intake: IV 250 Oral 340 0 Output: Urine 250 280 Stool 1000 Other: Voiding Method Indwelling Catheter Indwelling Catheter Indwelling Catheter # Voids 1 # Bowel Movements 2 - Exam In general patient is alert and oriented x 3 in no distress HEENT head normocephalic and atraumatic Neck is supple no JVD no goiter no lymphadenopathy no carotid bruit Chest examination is clear to auscultation no crackles no wheezing Cardiac exam reveals regular heart sounds S1 and S2 no gallops no murmurs Abdomen is soft nontender no organomegaly with normal bowel sounds Extremity exam reveals no edema no cyanosis or clubbing Neurological examination reveals no gross focal deficits - Labs CBC & Chem 7: 04/03/21 07:04 04/04/21 01:00 Labs: Abnormal Lab Results - Last 24 Hours (Table) 04/04/21 Range/Units 01:00 Sodium 129 L (137-145) mmol/L Carbon Dioxide 18 L (22-30) mmol/L BUN 28 H (9-20) mg/dL Creatinine 1.97 H (0.66-1.25) mg/dL Glucose 129 H (74-99) mg/dL Calcium 8.2 L (8.4-10.2) mg/dL Magnesium 2.4 H (1.6-2.3) mg/dL Assessment and Plan Assessment: 1. Acute coronary syndrome. Status post cardiac cath with stent to the LAD 2. Ventricular tachycardia. patient started on amiodarone and mexiletine per cardiology 3. Acute on chronic renal failure. Nephrology services have been consulted. Current creatinine 1.98 and bun 24 4. History of essential hypertension 5. History of hyperlipidemia 6. History of coronary artery disease 7. History of colon cancer 8. History of anemia 9. History of COPD Continue normal saline at 75 Nephrology and cardiology services following Plan per cardiology at this time is to proceed with pacemaker defibrillator placement in a.m. tomorrow
[2021-04-04 12:13] LABS: Basophils % (A) 0 %; Eosinophils # (A) 0.2 k/uL (0-0.7); Eosinophils % (A) 3 %; HCT 25.1 % (39.0-53.0); HGB 8.6 gm/dL (13.0-17.5); Lymphocytes # (A) 0.8 k/uL (1.0-4.8); Lymphocytes % (A) 9 %; MCH 31.3 pg (25.0-35.0); MCHC 34.1 g/dL (31.0-37.0); MCV 91.8 fL (80.0-100.0); Mean Platelet Volume 8.3; Monocytes # (A) 0.8 k/uL (0-1.0); Monocytes % (A) 9 %; Neutrophils # (A) 6.9 k/uL (1.3-7.7); Neutrophils % (A) 78 %; Platelet Count 160 k/uL (150-450); RBC 2.74 m/uL (4.30-5.90); RDW 14.7 % (11.5-15.5); WBC 8.9 k/uL (3.8-10.6)
[2021-04-04 12:43] LABS: Albumin 2.5 g/dL (3.5-5.0); Calcium 7.8 mg/dL (8.4-10.2); Magnesium 2.1 mg/dL (1.6-2.3); Potassium 3.6 mmol/L (3.5-5.1); Total Bilirubin 0.3 mg/dL (0.2-1.3); Total Protein 4.9 g/dL (6.3-8.2)
--- NOTE | 2021-04-04 13:18 | XR ---
EXAMINATION TYPE: XR chest 1V portable DATE OF EXAM: 04/04/2021 COMPARISON: 03/23/2020 HISTORY: Lead placement check TECHNIQUE: Single frontal view of the chest is obtained. FINDINGS AND IMPRESSION: Dual-lead cardiac AICD device placed in the interval. Mild prominence of the interstitium could be on the basis of pulmonary edema. Subsegmental linear opacities likely atelectasis. Developing left lower lobe infiltrate cannot be ent irely excluded. No pneumothorax or pleural effusion. Hyperinflated lungs with flattened diaphragms suggest COPD/emphysema changes. Cardiomediastinal silhouette is within normal limit. Generalized osteopenia. No acute osseous abnormality.
--- NOTE | 2021-04-04 17:28 | CE ---
CARDIAC ELECTROPHYSIOLOGY REPORT PROCEDURE PERFORMED: Dual-chamber ICD. INDICATIONS: Ministerio Mcdaniels is an 80-year-old male patient who has had recurrent sustained ventricular tachycardia, underlying ischemic cardiomyopathy, that despite medical treatment including beta blockers and oral amiodarone and revascularization had recurrent ventricular tachycardia that required electrical cardioversion. He is brought in for dual-chamber ICD since he also has bradycardia. PROCEDURE: Patient was brought to the EP lab in a fasting state. Written informed consent was obtained prior to the procedure. The left shoulder area was prepped and draped as per protocol. 1% lidocaine was used for local anesthesia. A 4 cm incision was made parallel to the deltopectoral groove, about 1.5 cm medial to it. The incision was carried down to the level of the pectoralis muscle. A subfascial pocket was made. Hemostasis was assured. The left axillary vein was accessed at 2 separate points under fluoroscopy and via appropriately-sized introducer sheaths 2 leads were positioned in the right heart. The atrial lead was a [employer] model #2088TC, 52 cm in length and serial #[id number]. The P waves were 3.3 mV, pacing impedance 0.75 V at 0.5 milliseconds, pacing impedance of 410 ohms. The ICD lead was implanted in the RV apex and screwed in. This was a [employer] model #EEY445X, 58 cm in length and serial # [id number]. The R-waves were 6.1 mV, pacing impedance 0.5 V, pacing impedance 760 ohms, pacing threshold 0.5 V at 0.5 milliseconds and high-voltage impedance of 72 ohms. Both leads were secured to the underlying pectoralis fascia using 2 nonabsorbable sutures. Pocket was irrigated with antibiotic solution. Leads were connected to the generator ([employer] Carlos POMPA, serial #[id number]. The lead and the generator were then placed in subfascial pocket and the wound was closed in 3 layers and dressed per protocol. The device was secured to the underlying pectoralis muscle with 1 nonabsorbable suture. IMPRESSION: Successful dual-chamber ICD implantation for ischemic cardiomyopathy, ejection fraction 45%, but with recurrent ventricular tachycardia that occurred even after 72 hours of revascularization, beta christelle therapy and oral amiodarone. He had sustained fast ventricular tachycardia associated with hypotension that required immediate electrical cardioversion. He was admitted a week and a half back with the same ventricular tachycardia at over 200 beats per minute and was also very symptomatic and also required immediate electrical cardioversion. ICD implant for secondary prevention of sudden cardiac . SYLVESTER / SHARRIN: [id number] /
[2021-04-04 21:12] LABS: Potassium 3.5 mmol/L (3.5-5.1)
[2021-04-04] MEDS ORDERED: POTASSIUM CHLORIDE ER 20 MEQ TAB.ER PO STA (23:45)
[2021-04-05] MEDS: PANTOPRAZOLE 40 MG TABLET PO SCH (06:58)
[2021-04-05 07:34] LABS: Basophils % (A) 0 %; Eosinophils # (A) 0.2 k/uL (0-0.7); Eosinophils % (A) 3 %; HCT 23.9 % (39.0-53.0); HGB 8.2 gm/dL (13.0-17.5); Lymphocytes # (A) 0.8 k/uL (1.0-4.8); Lymphocytes % (A) 12 %; MCH 31.1 pg (25.0-35.0); MCHC 34.4 g/dL (31.0-37.0); MCV 90.3 fL (80.0-100.0); Mean Platelet Volume 8.3; Monocytes # (A) 0.6 k/uL (0-1.0); Monocytes % (A) 9 %; Neutrophils # (A) 5.1 k/uL (1.3-7.7); Neutrophils % (A) 74 %; Platelet Count 159 k/uL (150-450); RBC 2.65 m/uL (4.30-5.90); RDW 14.5 % (11.5-15.5); WBC 6.9 k/uL (3.8-10.6)
[2021-04-05 07:56] LABS: Albumin 2.4 g/dL (3.5-5.0); Calcium 8.1 mg/dL (8.4-10.2); Magnesium 1.9 mg/dL (1.6-2.3); Potassium 4.2 mmol/L (3.5-5.1); Total Bilirubin 0.2 mg/dL (0.2-1.3); Total Protein 4.8 g/dL (6.3-8.2)
--- NOTE | 2021-04-05 09:23 | P.PN ---
Subjective Patient is seen in follow-up for acute kidney injury. Renal function is stable. Sodium level better. Oral intake fair. Vital signs are stable. General: The patient appeared well nourished and normally developed. HEENT: Head exam is unremarkable. Neck is without jugular venous distension. LUNGS: Breath sounds decreased. HEART: Rate and Rhythm are regular. ABDOMEN: Soft, no distention. EXTREMITITES: No edema. Objective - Vital Signs Vital signs: Vital Signs Temp 98 F 04/05/21 04:50 Pulse 58 L 04/05/21 04:50 Resp 17 04/05/21 04:50 BP 93/54 04/05/21 04:50 Pulse Ox 96 04/05/21 04:50 Intake & Output 04/04/21 04/05/21 04/05/21 18:59 06:59 18:59 Intake Total 608 237 240 Output Total 400 1020 100 Balance 208 -783 140 Weight 81.5 kg Intake: IV 250 Oral 358 237 240 Output: Urine 300 1020 Stool 100 100 Other: Voiding Method Indwelling Catheter Indwelling Catheter - Labs CBC & Chem 7: 04/05/21 06:31 04/05/21 06:31 Labs: Abnormal Lab Results - Last 24 Hours (Table) 04/04/21 04/04/21 04/05/21 Range/Units 12:03 12:03 06:31 RBC 2.74 L (4.30-5.90) m/uL Hgb 8.6 L (13.0-17.5) gm/dL Hct 25.1 L (39.0-53.0) % Lymphocytes # 0.8 L (1.0-4.8) k/uL Sodium 132 L 132 L (137-145) mmol/L Chloride 108 H (98-107) mmol/L Carbon Dioxide 19 L 18 L (22-30) mmol/L BUN 28 H 24 H (9-20) mg/dL Creatinine 1.97 H 1.93 H (0.66-1.25) mg/dL Glucose 122 H (74-99) mg/dL Osmolality 278 L (280-301) mosm/kg Calcium 7.8 L 8.1 L (8.4-10.2) mg/dL Total Protein 4.9 L 4.8 L (6.3-8.2) g/dL Albumin 2.5 L 2.4 L (3.5-5.0) g/dL 04/05/21 Range/Units 06:31 RBC 2.65 L (4.30-5.90) m/uL Hgb 8.2 L (13.0-17.5) gm/dL Hct 23.9 L (39.0-53.0) % Lymphocytes # 0.8 L (1.0-4.8) k/uL Sodium (137-145) mmol/L Chloride (98-107) mmol/L Carbon Dioxide (22-30) mmol/L BUN (9-20) mg/dL Creatinine (0.66-1.25) mg/dL Glucose (74-99) mg/dL Osmolality (280-301) mosm/kg Calcium (8.4-10.2) mg/dL Total Protein (6.3-8.2) g/dL Albumin (3.5-5.0) g/dL Assessment and Plan Plan: Assessment: 1. Acute kidney injury secondary to ATN secondary to contrast-induced acute kidney injury as well as obstructive uropathy. Renal function stable. 2. Obstructive uropathy status post Meza catheter placement. 3. Acute myocardial infarction status post cardiac catheterization 2 with stent placement. 4. Hyponatremia secondary to acute kidney injury and poor solute intake. Urine sodium 50 and urine osmolality 426. 5. Acute on chronic systolic CHF with ejection fraction of 45%. 6. Metabolic acidosis secondary to acute kidney injury. Maintained on oral bicarbonate. 7. Hypomagnesemia from poor intake. Placed. Better. Plan: Maintain fluid restriction. Stop sodium chloride tabs. Encourage oral intake, particularly protein. Avoid nephrotoxins. Repeat electrolytes in the morning.
[2021-04-05] MEDS: HEPARIN SODIUM,PORCINE/PF 5,000 UNIT/0.5 ML SYRINGE SQ SCH ×2 (09:49→20:14)
[2021-04-05] MEDS: DOCUSATE 100 MG CAP PO SCH ×2 (09:50→20:14)
[2021-04-05] MEDS: SODIUM BICARBONATE TAB 650 MG TAB PO SCH ×3 (09:50→21:51)
[2021-04-05] MEDS: ASPIRIN 81 MG PO SCH (09:50)
[2021-04-05] MEDS: ATORVASTATIN 40 MG TAB PO SCH (09:50)
[2021-04-05] MEDS: TAMSULOSIN 0.4 MG CAP.ER.24H PO SCH (09:50)
[2021-04-05] MEDS: METOPROLOL TARTRATE 25 MG TAB PO SCH ×2 (09:50→20:14)
[2021-04-05] MEDS: CLOPIDOGREL 75 MG TAB PO SCH (09:50)
[2021-04-05] MEDS: MEXILETINE 150 MG CAP PO SCH ×3 (09:51→21:51)
[2021-04-05] MEDS: AMIODARONE 200 MG TAB PO SCH ×3 (09:51→21:51)
--- NOTE | 2021-04-05 12:53 | P.PN ---
Subjective Patient is resting comfortably in bed Yesterday he had pain in his lower abdomen and thought he got a shock However device interrogation today revealed that he did not have any ICD shocks He has had short runs of ventricular tachycardia now but is on oral amiodarone and mexiletine On examination his pulse rate is in the 60s Blood pressure 93/54 mmHg Afebrile Breath sounds are clear S1-S2 normal no murmurs ICD site is healed well minimal soakage Sodium 132 potassium 4.2, BUN 24 creatinine 193 Hemoglobin 8.2 Normal liver function Impression Ischemic cardio myopathy Recurrent ventricular tachycardia Status post ICD implantation Suggest Continue amiodarone 200 mg by mouth 3 times a day Continue dual antiplatelet therapy Continue atorvastatin Continue subcu heparin for DVT prophylaxis Continue low-dose losartan 12.5 mg by mouth daily Continue metoprolol 25 mg twice daily Continue mexiletine 150 mg 3 times daily His device was interrogated today and is functioning normally Chest x-ray shows leads in stable position Objective - Vital Signs Vital signs: Vital Signs Temp 97.9 F 04/05/21 08:00 Pulse 63 04/05/21 08:00 Resp 18 04/05/21 08:00 BP 94/54 04/05/21 08:00 Pulse Ox 98 04/05/21 08:00 Intake & Output 04/04/21 04/05/21 04/05/21 18:59 06:59 18:59 Intake Total 608 237 480 Output Total 400 1020 750 Balance 208 -783 -270 Weight 81.5 kg Intake: IV 250 Oral 358 237 480 Output: Urine 300 1020 650 Coude 650 Stool 100 100 Other: Voiding Method Indwelling Catheter Indwelling Catheter - Labs CBC & Chem 7: 04/05/21 06:31 04/05/21 06:31 Labs: Abnormal Lab Results - Last 24 Hours (Table) 04/05/21 04/05/21 Range/Units 06:31 06:31 RBC 2.65 L (4.30-5.90) m/uL Hgb 8.2 L (13.0-17.5) gm/dL Hct 23.9 L (39.0-53.0) % Lymphocytes # 0.8 L (1.0-4.8) k/uL Sodium 132 L (137-145) mmol/L Chloride 108 H (98-107) mmol/L Carbon Dioxide 18 L (22-30) mmol/L BUN 24 H (9-20) mg/dL Creatinine 1.93 H (0.66-1.25) mg/dL Calcium 8.1 L (8.4-10.2) mg/dL Total Protein 4.8 L (6.3-8.2) g/dL Albumin 2.4 L (3.5-5.0) g/dL
[2021-04-05] MEDS: MAGNESIUM OXIDE 400 MG TAB PO SCH (15:27)
[2021-04-05] MEDS: SODIUM CHLORIDE TAB 1 GM TAB PO SCH (16:25)
--- NOTE | 2021-04-05 17:13 | P.PN ---
Subjective Progress Note Date: 04/05/21 Ministerio Mcdaniels, is an 80 year old male who was admitted to [facility] after presenting with chest pain and shortness of breath, he had elevated troponin, he was admitted to intensive care unit, patient had elevated BUN and creatinine, he was seen by nephrology and cardiology, he was maintained on IV heparin, patient was stabilized and was transferred to [facility] for cardiac catheterization. On 03/31/2021 patient is alert and oriented 3 currently resting flat in bed. Patient underwent cardiac catheterization today right femoral groin approach patient received stent to the LAD. Arterial sheath remains in place. Patient has been started on Plavix per cardiology services. At this time patient denies chest pain or shortness breath. Patient denies nausea vomiting or diarrhea. Patient denies any urinary burning or frequency On 04/01/2021 Patient was seen and examined on the medical floor, he is alert and oriented x 3 in no distress, he denies any complaints there is no fever or chills no headache or dizziness no chest pain no shortness of breath no palpitation no cough no nausea or vomiting no abdominal pain no diarrhea no blood in the stools no burning with urination no frequency or urgency and no hematuria, there is no weakness or numbness in any of the extremities no change in vision speech or gait. On 04/02/2021 patient is alert and oriented 3. Did discuss case with cardiology services patient to have quite fast in place prior to discharge. O rder has been placed awaiting LifeVest arrival. Per cardiology patient to be discharged on Plavix and aspirin. Hold eliquis for 1 month and then will address with cardiology services to resume. Patient is currently in sinus rhythm. At this time patient denies any chest pain or shortness of breath. Patient denies nausea vomiting or diarrhea. Patient denies any urinary burning or frequency. Patient did require Meza catheter to be reinserted this AM. Patient does follow with nephrology services outpatient and has required Meza catheter at home. On 04/03/2021 Patient was seen and examined on the medical floor, he is alert and oriented x 3 in no distress, he denies any complaints there is no fever or chills no headache or dizziness no chest pain no shortness of breath no palpitation no cough no nausea or vomiting no abdominal pain no diarrhea no blood in the stools no burning with urination no frequency or urgency and no hematuria, there is no weakness or numbness in any of the extremities no change in vision speech or gait. Patient had episodes of bradycardia and tachycardia this morning, he was reevaluated by Dr. Rogers and plan at this time we have changed to keeping patient in the hospital and proceeding with pacemaker defibrillator placement in a.m. tomorrow On 04/04/2021 Patient was seen and examined on the medical floor, he is alert and oriented x 3 in no distress, he denies any complaints there is no fever or chills no headache or dizziness no chest pain no shortness of breath no palpitation no cough no nausea or vomiting no abdominal pain no diarrhea no blood in the stools no burning with urination no frequency or urgency and no hematuria, there is no weakness or numbness in any of the extremities no change in vision speech or gait. Patient is scheduled for dual-chamber ICD placement by Dr. Rogers today On 04/05/2021 patient was seen and examined on the telemetry floor he is alert and oriented 3 in no apparent distress he had episodes of chest discomfort and shortness of breath this morning he was evaluated by cardiology otherwise he is complaining of generalized weakness and he denies any other complaints. Objective - Vital Signs Vital signs: Vital Signs Temp 97.9 F 04/05/21 08:00 Pulse 63 04/05/21 08:00 Resp 18 04/05/21 08:00 BP 94/54 04/05/21 08:00 Pulse Ox 98 04/05/21 08:00 Intake & Output 04/04/21 04/05/21 04/05/21 18:59 06:59 18:59 Intake Total 608 237 240 Output Total 400 1020 750 Balance 208 783 -510 Weight 81.5 kg Intake: IV 250 Oral 358 237 240 Output: Urine 300 1020 650 Coude 650 Stool 100 100 Other: Voiding Method Indwelling Catheter Indwelling Catheter - Exam In general patient is alert and oriented x 3 in no distress HEENT head normocephalic and atraumatic Neck is supple no JVD no goiter no lymphadenopathy no carotid bruit Chest examination is clear to auscultation no crackles no wheezing Cardiac exam reveals regular heart sounds S1 and S2 no gallops no murmurs Abdomen is soft nontender no organomegaly with normal bowel sounds Extremity exam reveals no edema no cyanosis or clubbing Neurological examination reveals no gross focal deficits - Labs CBC & Chem 7: 04/05/21 06:31 07 06:31 Labs: Abnormal Lab Results - Last 24 Hours (Table) 04/04/21 04/05/21 04/05/21 Range/Units 12:03 06:31 06:31 RBC 2.65 L (4.30-5.90) m/uL Hgb 8.2 L (13.0-17.5) gm/dL Hct 23.9 L (39.0-53.0) % Lymphocytes # 0.8 L (1.0-4.8) k/uL Sodium 132 L 132 L (137-145) mmol/L Chloride 108 H (98-107) mmol/L Carbon Dioxide 19 L 18 L (22-30) mmol/L BUN 28 H 24 H (9-20) mg/dL Creatinine 1.97 H 1.93 H (0.66-1.25) mg/dL Glucose 122 H (74-99) mg/dL Osmolality 278 L (280-301) mosm/kg Calcium 7.8 L 8.1 L (8.4-10.2) mg/dL Total Protein 4.9 L 4.8 L (6.3-8.2) g/dL Albumin 2.5 L 2.4 L (3.5-5.0) g/dL Assessment and Plan Assessment: 1. Acute coronary syndrome. Status post cardiac cath with stent to the LAD 2. Ventricular tachycardia. patient started on amiodarone and mexiletine per cardiology 3. Acute on chronic renal failure. Nephrology services have been consulted. Current creatinine 1.98 and bun 24 4. History of essential hypertension 5. History of hyperlipidemia 6. History of coronary artery disease 7. History of colon cancer 8. History of anemia 9. History of COPD Continue normal saline at 75 Nephrology and cardiology services following Plan per cardiology at this time is to proceed with pacemaker defibrillator placement in a.m. tomorrow
[2021-04-05] MEDS: LOSARTAN 25 MG TAB PO SCH (21:48)
[2021-04-06] MEDS: PANTOPRAZOLE 40 MG TABLET PO SCH (06:36)
[2021-04-06 07:36] LABS: Calcium 8.2 mg/dL (8.4-10.2); Magnesium 1.8 mg/dL (1.6-2.3); Potassium 3.7 mmol/L (3.5-5.1)
[2021-04-06] MEDS: TAMSULOSIN 0.4 MG CAP.ER.24H PO SCH (09:10)
[2021-04-06] MEDS: ATORVASTATIN 40 MG TAB PO SCH (09:11)
[2021-04-06] MEDS: CLOPIDOGREL 75 MG TAB PO SCH (09:11)
[2021-04-06] MEDS: AMIODARONE 200 MG TAB PO SCH ×3 (09:11→21:01)
[2021-04-06] MEDS: DOCUSATE 100 MG CAP PO SCH ×3 (09:11→20:50)
[2021-04-06] MEDS: ASPIRIN 81 MG PO SCH (09:11)
[2021-04-06] MEDS: METOPROLOL TARTRATE 25 MG TAB PO SCH ×2 (09:12→20:50)
[2021-04-06] MEDS: HEPARIN SODIUM,PORCINE/PF 5,000 UNIT/0.5 ML SYRINGE SQ SCH ×2 (09:12→20:50)
[2021-04-06] MEDS: MEXILETINE 150 MG CAP PO SCH ×3 (09:13→21:01)
[2021-04-06] MEDS: SODIUM BICARBONATE TAB 650 MG TAB PO SCH ×3 (09:13→21:01)
[2021-04-06] MEDS: LOSARTAN 25 MG TAB PO SCH (09:18)
--- NOTE | 2021-04-06 09:39 | P.PN ---
Subjective Patient is seen in follow-up for acute kidney injury. Renal function is stable. Sodium level better. Oral intake fair. No chest pain or shortness of breath. Vital signs are stable. General: The patient appeared well nourished and normally developed. HEENT: Head exam is unremarkable. Neck is without jugular venous distension. LUNGS: Breath sounds decreased. HEART: Rate and Rhythm are regular. ABDOMEN: Soft, no distention. EXTREMITITES: No edema. Objective - Vital Signs Vital signs: Vital Signs Temp 98.2 F 04/06/21 08:00 Pulse 63 04/06/21 08:00 Resp 18 04/06/21 08:00 BP 100/55 04/06/21 08:00 Pulse Ox 96 04/06/21 08:00 Intake & Output 04/05/21 04/06/21 04/06/21 18:59 06:59 18:59 Intake Total 710 200 120 Output Total 950 800 Balance -240 -600 120 Weight 83.5 kg Intake: Oral 710 200 120 Output: Urine 650 800 Coude 650 Stool 300 Other: Voiding Method Indwelling Catheter Indwelling Catheter - Labs CBC & Chem 7: 04/05/21 06:31 04/06/21 06:39 Labs: Abnormal Lab Results - Last 24 Hours (Table) 04/06/21 Range/Units 06:39 Sodium 133 L (137-145) mmol/L BUN 22 H (9-20) mg/dL Creatinine 1.90 H (0.66-1.25) mg/dL Calcium 8.2 L (8.4-10.2) mg/dL Assessment and Plan Plan: Assessment: 1. Acute kidney injury secondary to ATN secondary to contrast-induced acute kidney injury as well as obstructive uropathy. Renal function stable. 2. Obstructive uropathy status post Meza catheter placement. Also on Flomax. 3. Acute myocardial infarction status post cardiac catheterization 2 with stent placement. Also had AICD placed due to bradycardia. 4. Hyponatremia secondary to acute kidney injury and poor solute intake. Urine sodium 50 and urine osmolality 426. 5. Acute on chronic systolic CHF with ejection fraction of 45%. 6. Metabolic acidosis secondary to acute kidney injury. Maintained on oral bicarbonate. Better. 7. Hypomagnesemia from poor intake. Replaced. Better. Plan: Maintain fluid restriction. Encourage oral intake, particularly protein. Avoid nephrotoxins. Consider urology evaluation for the hydronephrosis and urinary retention.
[2021-04-06] MEDS: MAGNESIUM OXIDE 400 MG TAB PO SCH (11:29)
--- NOTE | 2021-04-06 12:16 | P.PN ---
Subjective Progress Note Date: 04/06/21 HISTORY OF PRESENT ILLNESS: This is an 80-year-old male who underwent cardiac catheterization on 03/31/2021 with stenting of the mid LAD with Dr. Salcedo. Patient has ischemic cardiomyopathy and was having recurrent sustained ventricular tachycardia. Patient underwent ICD implantation with Dr. Rogers. Patient examined this morning. He denies chest pain or pressure. Denies shortness of breath. Chest x-ray completed post procedure reveals dual lead cardiac AICD device. No pneumothorax or pleural effusion. Blood pressure 108/55. PHYSICAL EXAM: VITAL SIGNS: Reviewed. GENERAL: Well-developed in no acute distress. NECK: Supple. No JVD or thyromegaly LUNGS: Respirations even and unlabored. Lungs essentially clear to auscultation bilaterally. HEART: Regular rate and rhythm. S1 and S2 heard. EXTREMITIES: Normal range of motion. No clubbing or cyanosis. Peripheral pulses intact. No lower extremity edema ASSESSMENT: Coronary artery disease, s/p PCI to LAD Ischemic cardiomyopathy Recurrent ventricular tachycardia, status post ICD implantation PLAN: Continue current cardiac medications Stable for discharge from a cardiac standpoint today on current medication regimen Follow up outpatient with Dr. Rogers Nurse practitioner note has been reviewed by physician. Signing provider agrees with the documented findings, assessment, and plan of care. Objective - Vital Signs Vital signs: Vital Signs Temp 98.2 F 04/06/21 08:00 Pulse 61 04/06/21 11:25 Resp 18 04/06/21 11:25 BP 108/55 04/06/21 11:25 Pulse Ox 97 04/06/21 11:25 Intake & Output 04/05/21 04/06/21 04/06/21 18:59 06:59 18:59 Intake Total 710 200 120 Output Total 950 800 730 Balance -240 -600 -610 Weight 83.5 kg Intake: Oral 710 200 120 Output: Urine 650 800 730 Coude 650 Stool 300 Other: Voiding Method Indwelling Catheter Indwelling Catheter - Labs CBC & Chem 7: 04/05/21 06:31 04/06/21 06:39 Labs: Abnormal Lab Results - Last 24 Hours (Table) 04/06/21 Range/Units 06:39 Sodium 133 L (137-145) mmol/L BUN 22 H (9-20) mg/dL Creatinine 1.90 H (0.66-1.25) mg/dL Calcium 8.2 L (8.4-10.2) mg/dL
--- NOTE | 2021-04-06 17:42 | P.PN ---
Subjective Progress Note Date: 04/06/21 Ministerio Mcdaniels, is an 80 year old male who was admitted to [facility] after presenting with chest pain and shortness of breath, he had elevated troponin, he was admitted to intensive care unit, patient had elevated BUN and creatinine, he was seen by nephrology and cardiology, he was maintained on IV heparin, patient was stabilized and was transferred to [facility] for cardiac catheterization. On 03/31/2021 patient is alert and oriented 3 currently resting flat in bed. Patient underwent cardiac catheterization today right femoral groin approach patient received stent to the LAD. Arterial sheath remains in place. Patient has been started on Plavix per cardiology services. At this time patient denies chest pain or shortness breath. Patient denies nausea vomiting or diarrhea. Patient denies any urinary burning or frequency On 04/01/2021 Patient was seen and examined on the medical floor, he is alert and oriented x 3 in no distress, he denies any complaints there is no fever or chills no headache or dizziness no chest pain no shortness of breath no palpitation no cough no nausea or vomiting no abdominal pain no diarrhea no blood in the stools no burning with urination no frequency or urgency and no hematuria, there is no weakness or numbness in any of the extremities no change in vision speech or gait. On 04/02/2021 patient is alert and oriented 3. Did discuss case with cardiology services patient to have quite fast in place prior to discharge. O rder has been placed awaiting LifeVest arrival. Per cardiology patient to be discharged on Plavix and aspirin. Hold eliquis for 1 month and then will address with cardiology services to resume. Patient is currently in sinus rhythm. At this time patient denies any chest pain or shortness of breath. Patient denies nausea vomiting or diarrhea. Patient denies any urinary burning or frequency. Patient did require Fuentes catheter to be reinserted this AM. Patient does follow with nephrology services outpatient and has required Fuentes catheter at home. On 04/03/2021 Patient was seen and examined on the medical floor, he is alert and oriented x 3 in no distress, he denies any complaints there is no fever or chills no headache or dizziness no chest pain no shortness of breath no palpitation no cough no nausea or vomiting no abdominal pain no diarrhea no blood in the stools no burning with urination no frequency or urgency and no hematuria, there is no weakness or numbness in any of the extremities no change in vision speech or gait. Patient had episodes of bradycardia and tachycardia this morning, he was reevaluated by Dr. Rogers and plan at this time we have changed to keeping patient in the hospital and proceeding with pacemaker defibrillator placement in a.m. tomorrow On 04/04/2021 Patient was seen and examined on the medical floor, he is alert and oriented x 3 in no distress, he denies any complaints there is no fever or chills no headache or dizziness no chest pain no shortness of breath no palpitation no cough no nausea or vomiting no abdominal pain no diarrhea no blood in the stools no burning with urination no frequency or urgency and no hematuria, there is no weakness or numbness in any of the extremities no change in vision speech or gait. Patient is scheduled for dual-chamber ICD placement by Dr. Rogers today On 04/05/2021 patient was seen and examined on the telemetry floor he is alert and oriented 3 in no apparent distress he had episodes of chest discomfort and shortness of breath this morning he was evaluated by cardiology otherwise he is complaining of generalized weakness and he denies any other complaints. On 04/06/2021 Patient was seen and examined on the medical floor, he is alert and oriented x 3 in no distress, he denies any complaints there is no fever or chills no headache or dizziness no chest pain no shortness of breath no palp itation no cough no nausea or vomiting no abdominal pain no diarrhea no blood in the stools no burning with urination no frequency or urgency and no hematuria, there is no weakness or numbness in any of the extremities no change in vision speech or gait. Fuentes catheter removed this morning and patient has not been able to urinate, hoever there was minimal urine amount in the bladder on bladder scan, will continue to monitor and evaluate, plan to discharge patient to home tomorrow either with or without a fuentes catheter. Objective - Vital Signs Vital signs: Vital Signs Temp 97.8 F 04/06/21 15:19 Pulse 61 04/06/21 15:19 Resp 18 04/06/21 15:19 BP 120/58 04/06/21 15:19 Pulse Ox 98 04/06/21 15:19 Intake & Output 04/05/21 04/06/2121 18:59 06:59 18:59 Intake Total 710 200 120 Output Total 950 800 730 Balance -240 -600 -610 Weight 83.5 kg Intake: Oral 710 200 120 Output: Urine 650 800 730 Coude 650 Stool 300 Other: Voiding Method Indwelling Catheter Indwelling Catheter - Exam In general patient is alert and oriented x 3 in no distress HEENT head normocephalic and atraumatic Neck is supple no JVD no goiter no lymphadenopathy no carotid bruit Chest examination is clear to auscultation no crackles no wheezing Cardiac exam reveals regular heart sounds S1 and S2 no gallops no murmurs Abdomen is soft nontender no organomegaly with normal bowel sounds Extremity exam reveals no edema no cyanosis or clubbing Neurological examination reveals no gross focal deficits - Labs CBC & Chem 7: 04/05/21 06:31 04/06/21 06:39 Labs: Abnormal Lab Results - Last 24 Hours (Table) 04/06/21 Range/Units 06:39 Sodium 133 L (137-145) mmol/L BUN 22 H (9-20) mg/dL Creatinine 1.90 H (0.66-1.25) mg/dL Calcium 8.2 L (8.4-10.2) mg/dL Assessment and Plan Assessment: 1. Acute coronary syndrome. Status post cardiac cath with stent to the LAD 2. Ventricular tachycardia. patient started on amiodarone and mexiletine per cardiology 3. Acute on chronic renal failure. Nephrology services have been consulted. Current creatinine 1.98 and bun 24 4. History of essential hypertension 5. History of hyperlipidemia 6. History of coronary artery disease 7. History of colon cancer 8. History of anemia 9. History of COPD Continue normal saline at 75 Nephrology and cardiology services following Plan per cardiology at this time is to proceed with pacemaker defibrillator placement in a.m. tomorrow
[2021-04-07] MEDS: PANTOPRAZOLE 40 MG TABLET PO SCH (06:15)
--- NOTE | 2021-04-07 09:28 | P.PN ---
Subjective Patient is seen in follow-up for acute kidney injury. Renal function is stable. Sodium level better. Oral intake fair. No chest pain or shortness of breath. Wants to go home. Meza catheter discontinued. Has been voiding well on his own. Vital signs are stable. General: The patient appeared well nourished and normally developed. HEENT: Head exam is unremarkable. Neck is without jugular venous distension. LUNGS: Breath sounds decreased. HEART: Rate and Rhythm are regular. ABDOMEN: Soft, no distention. EXTREMITITES: No edema. Objective - Vital Signs Vital signs: Vital Signs Temp 98.0 F 04/07/21 04:00 Pulse 62 04/07/21 04:00 Resp 18 04/07/21 04:00 BP 104/57 04/07/21 04:00 Pulse Ox 96 04/07/21 04:00 Intake & Output 04/06/21 04/07/21 04/07/21 18:59 06:59 18:59 Intake Total 360 10 Output Total 730 875 275 Balance -370 -865 -275 Weight 81 kg Intake: IV 10 0.9 10 Oral 360 Output: Urine 730 875 275 Other: Voiding Method Urinal # Voids 1 - Labs CBC & Chem 7: 04/05/21 06:31 04/06/21 06:39 Assessment and Plan Plan: Assessment: 1. Acute kidney injury secondary to ATN secondary to contrast-induced acute kidney injury as well as obstructive uropathy. Renal function stable. 2. Obstructive uropathy status post Meza catheter placement. Also on Flomax. 3. Acute myocardial infarction status post cardiac catheterization 2 with stent placement. Also had AICD placed due to bradycardia. 4. Hyponatremia secondary to acute kidney injury and poor solute intake. Urine sodium 50 and urine osmolality 426. 5. Acute on chronic systolic CHF with ejection fraction of 45%. 6. Metabolic acidosis secondary to acute kidney injury. Maintained on oral bicarbonate. Better. 7. Hypomagnesemia from poor intake. Replaced. Better. Plan: Maintain fluid restriction. Encourage oral intake, particularly protein. Avoid nephrotoxins. Possible discharge today. Follow up outpatient in 2 weeks.
[2021-04-07] MEDS: AMIODARONE 200 MG TAB PO SCH (09:39)
[2021-04-07] MEDS: ASPIRIN 81 MG PO SCH (09:39)
[2021-04-07] MEDS: CLOPIDOGREL 75 MG TAB PO SCH (09:39)
[2021-04-07] MEDS: METOPROLOL TARTRATE 25 MG TAB PO SCH (09:39)
[2021-04-07] MEDS: SODIUM BICARBONATE TAB 650 MG TAB PO SCH (09:39)
[2021-04-07] MEDS: MAGNESIUM OXIDE 400 MG TAB PO SCH (09:39)
[2021-04-07] MEDS: LOSARTAN 25 MG TAB PO SCH (09:39)
[2021-04-07] MEDS: TAMSULOSIN 0.4 MG CAP.ER.24H PO SCH (09:39)
[2021-04-07] MEDS: ATORVASTATIN 40 MG TAB PO SCH (09:39)
[2021-04-07] MEDS: HEPARIN SODIUM,PORCINE/PF 5,000 UNIT/0.5 ML SYRINGE SQ SCH (09:40)
[2021-04-07] MEDS: DOCUSATE 100 MG CAP PO SCH (09:40)
[2021-04-07] MEDS: MEXILETINE 150 MG CAP PO SCH (09:40)
[2021-04-07 09:53] LABS: Basophils % (A) 0 %; Eosinophils # (A) 0.3 k/uL (0-0.7); Eosinophils % (A) 4 %; HCT 23.6 % (39.0-53.0); HGB 8.1 gm/dL (13.0-17.5); Lymphocytes # (A) 0.8 k/uL (1.0-4.8); Lymphocytes % (A) 12 %; MCH 30.5 pg (25.0-35.0); MCHC 34.1 g/dL (31.0-37.0); MCV 89.4 fL (80.0-100.0); Mean Platelet Volume 7.9; Monocytes # (A) 0.5 k/uL (0-1.0); Monocytes % (A) 7 %; Neutrophils # (A) 5.4 k/uL (1.3-7.7); Neutrophils % (A) 75 %; Platelet Count 181 k/uL (150-450); RBC 2.64 m/uL (4.30-5.90); RDW 14.2 % (11.5-15.5); WBC 7.2 k/uL (3.8-10.6)
[2021-04-07 10:06] LABS: Albumin 2.7 g/dL (3.5-5.0); Calcium 8.2 mg/dL (8.4-10.2); Potassium 3.3 mmol/L (3.5-5.1); Total Bilirubin 0.2 mg/dL (0.2-1.3); Total Protein 5.1 g/dL (6.3-8.2)
[2021-04-07 11:08] VITALS: TEMP 97.9
[2021-04-07] MEDS ORDERED: Potassium Replacement Protocol 1 EACH MISC MISCELLANE PRN (11:22)
[2021-04-07] MEDS: POTASSIUM CHLORIDE ER 20 MEQ TAB.ER PO SCH ×2 (11:48→14:34)
--- NOTE | 2021-04-07 11:54 | P.DS ---
Providers Date of admission: 03/30/21 16:18 Expected date of discharge: 04/07/21 Attending physician: Mirian De León Consults: 03/30/21 18:12 Consult Physician Routine Consulting Provider: Parker Salcdeo Consult Reason/Comments: [facility] transfer, cardiac cath Do you want consulting provider notified?: Yes 03/31/21 09:43 Consult Physician Routine Consulting Provider: [facility] Consult Reason/Comments: Post Interventional patient Do you want consulting provider notified?: Already Contacted 03/31/21 10:58 Consult Physician Routine Consulting Provider: Stephani Hickman Consult Reason/Comments: Acute kidney injury Do you want consulting provider notified?: Yes Primary care physician: Mirian Sarthak [facility] Course: Discharge diagnosis 1. Acute coronary syndrome. Status post cardiac cath with stent to the LAD. Patient will be DC'd on dual antiplatelet therapy with Plavix and aspirin. Per cardiology patient to follow-up and reassess need for eliquis in 30 days 2. Ventricular tachycardia status post AICD placement. Per cardiology recommendation patient to continue amiodarone and mexiletine 3. Acute on chronic renal failure. Nephrology services have been consulted. 4. History of essential hypertension 5. History of hyperlipidemia 6. History of coronary artery disease 7. History of colon cancer 8. History of anemia 9. History of COPD 10. Urinary retention. Patient started on Flomax. Full catheter has been removed. Patient has follow-up appointment with urology services Hospital course Ministerio Mcdaniels, is an 80 year old male who was admitted to [facility] after presenting with chest pain and shortness of breath, he had elevated troponin, he was admitted to intensive care unit, patient had elevated BUN and creatinine, he was seen by nephrology and cardiology, he was maintained on IV heparin, patient was stabilized and was transferred to [facility] for cardiac catheterization. On 03/31/2021 patient is alert and oriented 3 currently resting flat in bed. Patient underwent cardiac catheterization today right femoral groin approach patient received stent to the LAD. Arterial sheath remains in place. Patient has been started on Plavix per cardiology services. At this time patient denies chest pain or shortness breath. Patient denies nausea vomiting or diarrhea. Patient denies any urinary burning or frequency On 04/01/2021 Patient was seen and examined on the medical floor, he is alert and oriented x 3 in no distress, he denies any complaints there is no fever or chills no headache or dizziness no chest pain no shortness of breath no palpitation no cough no nausea or vomiting no abdominal pain no diarrhea no blood in the stools no burning with urination no frequency or urgency and no hematuria, there is no weakness or numbness in any of the extremities no change in vision speech or gait. On 04/02/2021 patient is alert and oriented 3. Did discuss case with cardiology services patient to have quite fast in place prior to discharge. Order has been placed awaiting [facility] arrival. Per cardiology patient to be discharged on Plavix and aspirin. Hold eliquis for 1 month and then will address with cardiology services to resume. Patient is currently in sinus rhythm. At this time patient denies any chest pain or shortness of breath. Patient denies nausea vomiting or diarrhea. Patient denies any urinary burning or frequency. Patient did require Fuentes catheter to be reinserted this AM. Patient does follow with nephrology services outpatient and has required Fuentes catheter at home. On 04/03/2021 Patient was seen and examined on the medical floor, he is alert and oriented x 3 in no distress, he denies any complaints there is no fever or chills no headache or dizziness no chest pain no shortness of breath no palpitation no cough no nausea or vomiting no abdominal pain no diarrhea no blood in the stools no burning with urination no frequency or urgency and no hematuria, there is no weakness or numbness in any of the extremities no change in vision speech or gait. Patient had episodes of bradycardia and tachycardia this morning, he was reevaluated by Dr. Rogers and plan at this time we have changed to keeping patient in the hospital and proceeding with pacemaker defibrillator placement in a.m. tomorrow On 04/04/2021 Patient was seen and examined on the medical floor, he is alert and oriented x 3 in no distress, he denies any complaints there is no fever or chills no headache or dizziness no chest pain no shortness of breath no palpitation no cough no nausea or vomiting no abdominal pain no diarrhea no blood in the stools no burning with urination no frequency or urgency and no h ematuria, there is no weakness or numbness in any of the extremities no change in vision speech or gait. Patient is scheduled for dual-chamber ICD placement by Dr. Rogers today On 04/05/2021 patient was seen and examined on the telemetry floor he is alert and oriented 3 in no apparent distress he had episodes of chest discomfort and shortness of breath this morning he was evaluated by cardiology otherwise he is complaining of generalized weakness and he denies any other complaints. On 04/06/2021 Patient was seen and examined on the medical floor, he is alert and oriented x 3 in no distress, he denies any complaints there is no fever or chills no headache or dizziness no chest pain no shortness of breath no palpitation no cough no nausea or vomiting no abdominal pain no diarrhea no blood in the stools no burning with urination no frequency or urgency and no hematuria, there is no weakness or numbness in any of the extremities no change in vision speech or gait. Fuentes catheter removed this morning and patient has not been able to urinate, hoever there was minimal urine amount in the bladder on bladder scan, will continue to monitor and evaluate, plan to discharge patient to home tomorrow either with or without a fuentes catheter. On 04/07/2021 patient alert and oriented 3. Patient is very eager to go home. Patient did have Fuentes catheter removed last night. Patient has been able to void without residual per nursing staff. Patient does have follow-up with urology services. Cardiac medications prescribed per cardiology recommendation. Patient to follow-up with cardiology services for further evaluation. Per cardiology patient to be discharged on Plavix and aspirin. Hold eliquis for 1 month and then will readdress with cardiology services to resume. At this time patient denies chest pain or shortness of breath. Patient denies nausea vomiting or diarrhea. Patient denies any urinary burning or frequency. Patient Condition at Discharge: Stable Plan - Discharge Summary Discharge Rx Participant: No New Discharge Prescriptions: New Tamsulosin [Flomax] 0.4 mg PO PC-BRKFST 30 Days #30 cap.er.24h Mexiletine [Mexitil] 150 mg PO TID 30 Days #90 cap Amiodarone [Cordarone] 200 mg PO TID 30 Days #90 tab Losartan [Cozaar] 12.5 mg PO DAILY 30 Days #30 tab Metoprolol Tartrate [Lopressor] 25 mg PO BID 30 Days #60 tab Clopidogrel [Plavix] 75 mg PO DAILY 30 Days #30 tab Sodium Bicarbonate Tab 650 mg PO TID 30 Days #90 tab Continue Atorvastatin [Lipitor] 40 mg PO DAILY Aspirin [Adult Low Dose Aspirin EC] 81 mg PO DAILY Ferrous Sulfate [Iron (65 MG Elemental)] 325 mg PO BID Discontinued Spironolactone [Aldactone] 25 mg PO DAILY Apixaban [Eliquis] 5 mg PO BID Lisinopril [Zestril] 10 mg PO DAILY Carvedilol [Coreg] 3.125 mg PO AC-BID Discharge Medication List Aspirin [Adult Low Dose Aspirin EC] 81 mg PO DAILY 05/24/16 [History] Atorvastatin [Lipitor] 40 mg PO DAILY 05/24/16 [History] Ferrous Sulfate [Iron (65 MG Elemental)] 325 mg PO BID 03/30/21 [History] Amiodarone [Cordarone] 200 mg PO TID 30 Days #90 tab 04/07/21 [Rx] Clopidogrel [Plavix] 75 mg PO DAILY 30 Days #30 tab 04/07/21 [Rx] Losartan [Cozaar] 12.5 mg PO DAILY 30 Days #30 tab 04/07/21 [Rx] Metoprolol Tartrate [Lopressor] 25 mg PO BID 30 Days #60 tab 04/07/21 [Rx] Mexiletine [Mexitil] 150 mg PO TID 30 Days #90 cap 04/07/21 [Rx] Sodium Bicarbonate Tab 650 mg PO TID 30 Days #90 tab 04/07/21 [Rx] Tamsulosin [Flomax] 0.4 mg PO PC-BRKFST 30 Days #30 cap.er.24h 04/07/21 [Rx] Follow up Appointment(s)/Referral(s): Shamir Rogers MD [STAFF PHYSICIAN] - 2 Weeks (Follow-up with Dr. Rogers/Emely Hunt in 2-3 weeks) Stephani Hickman MD [STAFF PHYSICIAN] - 1 Week Rogers Cool MD [STAFF PHYSICIAN] - 1 Week Linda Raygoza MD [STAFF PHYSICIAN] - 04/13/21 (Patient already has an appt made with his primary doctor, he has the time written down at home.) [facility] Visiting Nurse, [NON-STAFF] - Activity/Diet/Wound Care/Special Instructions: Activity as tolerated Diet heart healthy
[2021-04-07 12:13] VITALS: BP 167/93; PULSE 60; RESP 16
--- NOTE | 2021-04-07 12:27 | P.PN ---
Subjective Progress Note Date: 04/07/21 HISTORY OF PRESENT ILLNESS: This is an 80-year-old male who underwent cardiac catheterization on 03/31/2021 with stenting of the mid LAD with Dr. Salcedo. Patient has ischemic cardiomyopathy and was having recurrent sustained ventricular tachycardia. Patient underwent ICD implantation with Dr. Rogers. Patient examined this morning. He denies chest pain or pressure. Denies shortness of breath. Chest x-ray completed post procedure reveals dual lead cardiac AICD device. No pneumothorax or pleural effusion. Blood pressure 108/55. 04/07/2021 Patient examined this morning at the bedside. Patient denies chest pain or pressure. Denies shortness of breath. Vital signs are stable. Patient is hoping to be discharged home today. PHYSICAL EXAM: VITAL SIGNS: Reviewed. GENERAL: Well-developed in no acute distress. NECK: Supple. No JVD or thyromegaly LUNGS: Respirations even and unlabored. Lungs essentially clear to auscultation bilaterally. HEART: Regular rate and rhythm. S1 and S2 heard. EXTREMITIES: Normal range of motion. No clubbing or cyanosis. Peripheral pulses intact. No lower extremity edema ASSESSMENT: Coronary artery disease, s/p PCI to LAD Ischemic cardiomyopathy Recurrent ventricular tachycardia, status post ICD implantation PLAN: Continue current cardiac medications Stable for discharge from a cardiac standpoint today on current medication regimen Follow up outpatient with Dr. Rogers Nurse practitioner note has been reviewed by physician. Signing provider agrees with the documented findings, assessment, and plan of care. Objective - Vital Signs Vital signs: Vital Signs Temp 97.9 F 04/07/21 08:00 Pulse 60 04/07/21 12:00 Resp 16 04/07/21 12:00 BP 167/93 04/07/21 12:00 Pulse Ox 90 L 04/07/21 12:00 Intake & Output 04/06/21 04/07/21 04/07/21 18:59 06:59 18:59 Intake Total 360 10 240 Output Total 730 875 375 Balance -370 865 -135 Weight 81 kg Intake: IV 10 0.9 10 Oral 360 240 Output: Urine 730 875 275 Stool 100 Other: Voiding Method Urinal Urinal # Voids 1 - Labs CBC & Chem 7: 04/07/21 09:17 04/07/21 09:17 Labs: Abnormal Lab Results - Last 24 Hours (Table) 04/07/21 04/07/21 Range/Units 09:17 09:17 RBC 2.64 L (4.30-5.90) m/uL Hgb 8.1 L (13.0-17.5) gm/dL Hct 23.6 L (39.0-53.0) % Lymphocytes # 0.8 L (1.0-4.8) k/uL Sodium 134 L (137-145) mmol/L Potassium 3.3 L (3.5-5.1) mmol/L BUN 23 H (9-20) mg/dL Creatinine 1.88 H (0.66-1.25) mg/dL Glucose 126 H (74-99) mg/dL Calcium 8.2 L (8.4-10.2) mg/dL Total Protein 5.1 L (6.3-8.2) g/dL Albumin 2.7 L (3.5-5.0) g/dL
--- NOTE | 2021-04-08 10:54 | CDI ---
Documentation Clarification Form Date: 04/08/21 From: Prema Zapata Admit Date: 03/30/2021 04:18:00 PM Patient Name: Ministerio Mcdaniels Visit Number: [id number] Discharge Date: 04/07/2021 03:49:00 PM ATTENTION: The Clinical Documentation Specialists (CDI) and [facility] Coding Staff appreciate your assistance in clarifying documentation. Please respond to the clarification below the line at the bottom and electronically sign. The CDI & [facility] Coding staff will review the response and follow-up if needed. Please note: Queries are made part of the Legal Health Record. If you have any questions, please contact the author of this message via ITS. Dr. Stephani Hickman, Unspecified CKD is documented in the H&P, subsequent progress notes and DS. Additional clarification regarding the stage of CKD is requested. History/Risk Factors: Systolic CHF, V tach, HTN, NSTEMI, BPH w hydronephrosis & retention Patients Historical CR: 1.3 IN 2019 Clinical Indicators: Patient had elevated BUN and Creatinine. Per your consult: acute kidney injury, prerenal and obstructive uropathy Current BUN: 30, 22, 24, 25, 28, 28, 24, 22, 23 Current CR: 2.19, 2.00, 1.98, 1.93, 1.97, 1.97, 1.93, 1.90, 1.88 Current GFR: 27, 31, 31, 32, 31, 31, 32, 33, 33 Treatment: IV fluids, Meza placed, monitor labs Please clarify the stage of the CKD, if known: [ ] CKD Stage 1 (GFR > 90) [ ] CKD Stage 2 (GFR 60-89) [ ] CKD Stage 3 (GFR 30-59) [ ] CKD Stage 3a (GFR 45-59) [ ] CKD Stage 3b (GFR 30-44) [ ] CKD Stage 4 (GFR 15-29) [ ] CKD Stage 5 (GFR <15) [ ] ESRD [ ] Other, please specify CKD stage 3a____ [ ] Unable to determine MTDD
== END 2021-04-07 15:49 | disposition home health service (06) | DRG 226 ==
LOC: 3SCARD 16:18
PROVIDERS: ADMIT Internal Medicine; ATTEND Internal Medicine
PROC: 5A2204Z Restoration of Cardiac Rhythm, Single (ICD-10-PCS; 2021-03-31)
PROC: 027034Z Dilation of Coronary Artery, One Artery with Drug-eluting Intraluminal Device, Percutaneous Approach (ICD-10-PCS; 2021-03-31)
PROC: 0JH608Z Insertion of Defibrillator Generator into Chest Subcutaneous Tissue and Fascia, Open Approach (ICD-10-PCS; principal; 2021-04-04 08:00)
PROC: 02H63KZ Insertion of Defibrillator Lead into Right Atrium, Percutaneous Approach (ICD-10-PCS; principal; 2021-04-04 08:00)
PROC: 02HK3KZ Insertion of Defibrillator Lead into Right Ventricle, Percutaneous Approach (ICD-10-PCS; principal; 2021-04-04 08:00)
DX: I21.4 Non-ST elevation (NSTEMI) myocardial infarction (principal); N17.0 Acute kidney failure with tubular necrosis; I50.23 Acute on chronic systolic (congestive) heart failure; I47.2 Ventricular tachycardia; I13.0 Hypertensive heart and chronic kidney disease with heart failure and stage 1 through stage 4 chronic kidney disease, or unspecified chronic kidney disease; N13.30 Unspecified hydronephrosis; E87.1 Hypo-osmolality and hyponatremia; E87.2 Acidosis; N13.8 Other obstructive and reflux uropathy; I95.9 Hypotension, unspecified; I25.5 Ischemic cardiomyopathy; Z43.3 Encounter for attention to colostomy; N18.31 Chronic kidney disease, stage 3a; I25.110 Atherosclerotic heart disease of native coronary artery with unstable angina pectoris; J44.9 Chronic obstructive pulmonary disease, unspecified; I45.10 Unspecified right bundle-branch block; E78.5 Hyperlipidemia, unspecified; E83.42 Hypomagnesemia; N40.1 Benign prostatic hyperplasia with lower urinary tract symptoms; R33.8 Other retention of urine; N14.1 Nephropathy induced by other drugs, medicaments and biological substances; T50.8X5A Adverse effect of diagnostic agents, initial encounter; G47.30 Sleep apnea, unspecified; D64.9 Anemia, unspecified; E66.9 Obesity, unspecified; Z68.29 Body mass index [BMI] 29.0-29.9, adult; Z79.01 Long term (current) use of anticoagulants; Z79.82 Long term (current) use of aspirin; Z79.899 Other long term (current) drug therapy; Z85.038 Personal history of other malignant neoplasm of large intestine; Z86.718 Personal history of other venous thrombosis and embolism; Z85.828 Personal history of other malignant neoplasm of skin; Z90.89 Acquired absence of other organs; Z95.5 Presence of coronary angioplasty implant and graft; Z87.19 Personal history of other diseases of the digestive system; Z90.49 Acquired absence of other specified parts of digestive tract; Z98.890 Other specified postprocedural states; Z71.3 Dietary counseling and surveillance; Z80.3 Family history of malignant neoplasm of breast; Z82.49 Family history of ischemic heart disease and other diseases of the circulatory system
CPT/HCPCS: 33249; 71045; 80048; 80053; 83735; 83930; 83935; 84132; 84300; 84443; 85025; 85027; 94760

== ENCOUNTER 2021-06-12 23:39 | Inpatient (IN) | payer MEDICARE ==
--- NOTE | 2021-06-13 00:47 | ED ---
Extremity Problem HPI - General Chief complaint: Extremity Problem,Nontraumatic Stated complaint: Leg Swelling Time Seen by Provider: 06/13/21 00:09 Source: patient Mode of arrival: wheelchair Limitations: no limitations - Related Data Home Medications Medication Instructions Recorded Confirmed Aspirin [Adult Low Dose Aspirin EC] 81 mg PO DAILY 05/24/16 03/30/21 Atorvastatin [Lipitor] 40 mg PO DAILY 05/24/16 03/30/21 Ferrous Sulfate [Iron (65 MG 325 mg PO BID 03/30/21 03/30/21 Elemental)] Previous Rx's Medication Instructions Recorded Amiodarone [Cordarone] 200 mg PO TID 30 Days #90 tab 04/07/21 Clopidogrel [Plavix] 75 mg PO DAILY 30 Days #30 tab 04/07/21 Losartan [Cozaar] 12.5 mg PO DAILY 30 Days #30 tab 04/07/21 Metoprolol Tartrate [Lopressor] 25 mg PO BID 30 Days #60 tab 04/07/21 Mexiletine [Mexitil] 150 mg PO TID 30 Days #90 cap 04/07/21 Sodium Bicarbonate Tab 650 mg PO TID 30 Days #90 tab 04/07/21 Tamsulosin [Flomax] 0.4 mg PO PC-BRKFST 30 Days #30 04/07/21 cap.er.24h Allergies Allergy/AdvReac Type Severity Reaction Status Date / Time No Known Allergies Allergy Verified 06/13/21 00:07 Review of Systems ROS Statement: Those systems with pertinent positive or pertinent negative responses have been documented in the HPI. ROS Other: All systems not noted in ROS Statement are negative. Past Medical History Past Medical History: Coronary Artery Disease (CAD), Cancer, COPD, Deep Vein Thrombosis (DVT), Hyperlipidemia, Hypertension, Sleep Apnea/CPAP/BIPAP Additional Past Medical History / Comment(s): colon cancer, SKIN CANCER, colostomy History of Any Multi-Drug Resistant Organisms: None Reported Past Surgical History: Adenoidectomy, Heart Catheterization With Stent, Hernia Repair, Pacemaker, Tonsillectomy Additional Past Surgical History / Comment(s): colostomy Past Anesthesia/Blood Transfusion Reactions: No Reported Reaction Date of Last Stent Placement:: 2008 Past Psychological History: No Psychological Hx Reported Smoking Status: Never smoker Past Alcohol Use History: None Reported Past Drug Use History: None Reported - Past Family History Mother Family Medical History: Cancer Additional Family Medical History / Comment(s): breast cancer Father Additional Family Medical History / Comment(s): valve replacement and pacemaker. Brother(s) Additional Family Medical History / Comment(s): CABG General Exam Limitations: no limitations Course Vital Signs 06/13/21 06/13/21 00:03 02:07 Temperature 99.5 F Pulse Rate 58 L 66 Respiratory 20 18 Rate Blood Pressure 143/78 138/78 O2 Sat by Pulse 98 97 Oximetry Medical Decision Making - Lab Data Result diagrams: 06/13/21 01:24 06/13/21 01:24 Lab Results 06/13/21 06/13/21 06/13/21 Range/Units 01:24 01:24 01:24 WBC 14.6 H (3.8-10.6) k/uL RBC 3.07 L (4.30-5.90) m/uL Hgb 9.2 L (13.0-17.5) gm/dL Hct 27.7 L (39.0-53.0) % MCV 90.2 (80.0-100.0) fL MCH 30.2 (25.0-35.0) pg MCHC 33.4 (31.0-37.0) g/dL RDW 15.5 (11.5-15.5) % Plt Count 273 (150-450) k/uL MPV 7.9 Neutrophils % 89 % Lymphocytes % 5 % Monocytes % 6 % Eosinophils % 0 % Basophils % 0 % Neutrophils # 12.9 H (1.3-7.7) k/uL Lymphocytes # 0.7 L (1.0-4.8) k/uL Monocytes # 0.8 (0-1.0) k/uL Eosinophils # 0.0 (0-0.7) k/uL Basophils # 0.0 (0-0.2) k/uL PT 11.5 (9.0-12.0) sec INR 1.1 (<1.2) APTT 24.0 (22.0-30.0) sec Sodium (137-145) mmol/L Potassium (3.5-5.1) mmol/L Chloride (98-107) mmol/L Carbon Dioxide (22-30) mmol/L Anion Gap mmol/L BUN (9-20) mg/dL Creatinine (0.66-1.25) mg/dL Est GFR (CKD-EPI)AfAm (>60 ml/min/1.73 sqM) Est GFR (CKD-EPI)NonAf (>60 ml/min/1.73 sqM) Glucose (74-99) mg/dL Calcium (8.4-10.2) mg/dL Phosphorus (2.5-4.5) mg/dL Magnesium (1.6-2.3) mg/dL Total Bilirubin (0.2-1.3) mg/dL AST (17-59) U/L ALT (4-49) U/L Alkaline Phosphatase (38-126) U/L Creatine Kinase (55-170) U/L Troponin I (0.000-0.034) ng/mL Total Protein (6.3-8.2) g/dL Albumin (3.5-5.0) g/dL Urine Color Light Yellow Urine Appearance Cloudy (Clear) Urine pH 6.5 (5.0-8.0) Ur Specific [place] 1.008 (1.001-1.035) Urine Protein Trace H (Negative) Urine Glucose (UA) Negative (Negative) Urine Ketones Negative (Negative) Urine Blood Negative (Negative) Urine Nitrite Negative (Negative) Urine Bilirubin Negative (Negative) Urine Urobilinogen <2.0 (<2.0) mg/dL Ur Leukocyte Esterase Large H (Negative) Urine RBC 4 (0-5) /hpf Urine WBC >182 H (0-5) /hpf Ur Squamous Epith Cells <1 (0-4) /hpf Urine Bacteria Many H (None) /hpf Urine Mucus Rare H (None) /hpf 06/13/21 06/13/21 Range/Units 01:24 01:24 WBC (3.8-10.6) k/uL RBC (4.30-5.90) m/uL Hgb (13.0-17.5) gm/dL Hct (39.0-53.0) % MCV (80.0-100.0) fL MCH (25.0-35.0) pg MCHC (31.0-37.0) g/dL RDW (11.5-15.5) % Plt Count (150-450) k/uL MPV Neutrophils % % Lymphocytes % % Monocytes % % Eosinophils % % Basophils % % Neutrophils # (1.3-7.7) k/uL Lymphocytes # (1.0-4.8) k/uL Monocytes # (0-1.0) k/uL Eosinophils # (0-0.7) k/uL Basophils # (0-0.2) k/uL PT (9.0-12.0) sec INR (<1.2) APTT (22.0-30.0) sec Sodium 136 L (137-145) mmol/L Potassium 3.9 (3.5-5.1) mmol/L Chloride 103 (98-107) mmol/L Carbon Dioxide 23 (22-30) mmol/L Anion Gap 10 mmol/L BUN 31 H (9-20) mg/dL Creatinine 2.49 H (0.66-1.25) mg/dL Est GFR (CKD-EPI)AfAm 27 (>60 ml/min/1.73 sqM) Est GFR (CKD-EPI)NonAf 24 (>60 ml/min/1.73 sqM) Glucose 138 H (74-99) mg/dL Calcium 8.4 (8.4-10.2) mg/dL Phosphorus 3.6 (2.5-4.5) mg/dL Magnesium 1.7 (1.6-2.3) mg/dL Total Bilirubin 0.4 (0.2-1.3) mg/dL AST 16 L (17-59) U/L ALT 14 (4-49) U/L Alkaline Phosphatase 88 (38-126) U/L Creatine Kinase 26 L (55-170) U/L Troponin I 0.019 (0.000-0.034) ng/mL Total Protein 5.7 L (6.3-8.2) g/dL Albumin 3.0 L (3.5-5.0) g/dL Urine Color Urine Appearance (Clear) Urine pH (5.0-8.0) Ur Specific [place] (1.001-1.035) Urine Protein (Negative) Urine Glucose (UA) (Negative) Urine Ketones (Negative) Urine Blood (Negative) Urine Nitrite (Negative) Urine Bilirubin (Negative) Urine Urobilinogen (<2.0) mg/dL Ur Leukocyte Esterase (Negative) Urine RBC (0-5) /hpf Urine WBC (0-5) /hpf Ur Squamous Epith Cells (0-4) /hpf Urine Bacteria (None) /hpf Urine Mucus (None) /hpf Disposition Clinical Impression: Deep vein thrombosis (DVT) of lower extremity, CHF (congestive heart failure), SHITAL (acute kidney injury), Community acquired bacterial pneumonia, Bilateral leg edema, UTI (urinary tract infection) Disposition: ADMITTED IP TO THIS HOSP Condition: Fair Is patient prescribed a controlled substance at d/c from ED?: No Referrals: Linda Raygoza MD [Primary Care Provider] - 1-2 days
--- NOTE | 2021-06-13 01:08 | US ---
EXAMINATION TYPE: US venous doppler duplex LE LT DATE OF EXAM: 06/13/2021 12:51 AM COMPARISON: NONE CLINICAL HISTORY: dvt. SIDE PERFORMED: TECHNIQUE: The lower extremity deep venous system is examined utilizing real time linear array sonog leticia with graded compression, doppler sonography and color-flow sonography. VESSELS IMAGED: Common Femoral Vein Deep Femoral Vein Greater Saphenous Vein * Femoral Vein Popliteal Vein Small Saphenous Vein * Proximal Calf Veins (* superficial vessels) Left Leg: Positive for DVT. Popliteal vein not compressible at px mid and distal, distal shows no flow. IMPRESSION: There is acute deep vein thrombosis in the popliteal vein. Mid and proximal femoral vein appear patent.
[2021-06-13 01:34] LABS: Basophils % (A) 0 %; Eosinophils % (A) 0 %; HCT 27.7 % (39.0-53.0); HGB 9.2 gm/dL (13.0-17.5); Lymphocytes # (A) 0.7 k/uL (1.0-4.8); Lymphocytes % (A) 5 %; MCH 30.2 pg (25.0-35.0); MCHC 33.4 g/dL (31.0-37.0); MCV 90.2 fL (80.0-100.0); Mean Platelet Volume 7.9; Monocytes # (A) 0.8 k/uL (0-1.0); Monocytes % (A) 6 %; Neutrophils # (A) 12.9 k/uL (1.3-7.7); Neutrophils % (A) 89 %; Platelet Count 273 k/uL (150-450); RBC 3.07 m/uL (4.30-5.90); RDW 15.5 % (11.5-15.5); WBC 14.6 k/uL (3.8-10.6)
--- NOTE | 2021-06-13 01:38 | XR ---
EXAMINATION TYPE: XR chest 2V DATE OF EXAM: 06/13/2021 COMPARISON: 04/04/2021 HISTORY: Leg pain and edema TECHNIQUE: 2 views FINDINGS: There is patchy bilateral lower lobe pulmonary airspace infiltrates. There is also some ate lectasis at the lung bases. There is probably some pulmonary congestion.. Heart appears slightly enla rged. There is left axillary pacemaker. IMPRESSION: There is new bilateral lower lobe pneumonia and atelectasis compared to old exam. There i s probably heart failure.
[2021-06-13 01:42] LABS: INR 1.1 (<1.2); Prothrombin Time 11.5 sec (9.0-12.0)
[2021-06-13 01:44] LABS: Calcium 8.4 mg/dL (8.4-10.2); Magnesium 1.7 mg/dL (1.6-2.3); Phosphorus 3.6 mg/dL (2.5-4.5); Potassium 3.9 mmol/L (3.5-5.1); Total Bilirubin 0.4 mg/dL (0.2-1.3); Total Protein 5.7 g/dL (6.3-8.2)
[2021-06-13 01:54] LABS: Appearance,Urine Cloudy (Clear); Bacteria,Urine Many /hpf; Bilirubin,Urine Negative (Negative); Blood,Urine Negative (Negative); Color,Urine Light Yellow; Glucose,Urine (UA) Negative (Negative); Ketones,Urine Negative (Negative); Leukocyte Esterase,Urine Large (Negative); Mucus,Urine Rare /hpf; Nitrite,Urine Negative (Negative); PH, Urine 6.5 (5.0-8.0); Protein,Urine Trace (Negative); RBC,Urine 4 /hpf (0-5); Specific Gravity,Urine 1.008 (1.001-1.035); Squamous Epithelial Cell,Urine <1 /hpf (0-4); Urobilinogen,Urine <2.0 mg/dL (<2.0); WBC,Urine >182 /hpf (0-5)
[2021-06-13] MEDS ORDERED: NALOXONE 0.4 MG/ML 1 ML VIAL IV PRN (02:54)
[2021-06-13] MEDS ORDERED: MORPHINE SULFATE 4 MG/ML SYRINGE IV PRN (02:54)
[2021-06-13] MEDS ORDERED: ONDANSETRON 4 MG/2 ML VIAL IVP PRN (02:54)
[2021-06-13] MEDS ORDERED: FUROSEMIDE 10 MG/ML 10 ML VIAL IV STA (02:55)
[2021-06-13] MEDS ORDERED: HEPARIN SODIUM 1,000 UN/ML (10ML VL) IV ONE (03:50)
[2021-06-13] MEDS ORDERED: HEPARIN SODIUM 1,000 UN/ML (10ML VL) IV PRN (03:50)
[2021-06-13] MEDS ORDERED: AZITHROMYCIN 500 MG in SODIUM CHLORIDE 0.9% 250 ML IVPB STA (03:50)
[2021-06-13] MEDS: HEPARIN SOD,PORK IN 0.45% NACL 25,000 UNIT in 0.45% NACL 1 250ML.BAG IV SCH ×2 (04:19→22:24)
--- NOTE | 2021-06-13 04:54 | P.HPIM ---
History of Present Illness H&P Date: 06/13/21 The patient is an 80-year-old male with an extensive PMH including coronary artery disease status post stenting, systolic CHF, history of ventricular tachycardia status post AICD, chronic kidney disease, hypertension, hyperlipidemia, and COPD who presents to the emergency room with complaints of left leg and groin pain. Patient reports that his pain started suddenly earlier today, is achy in nature, radiating to the left thigh, exacerbated with movement, 8 out of 10 on maximal intensity. Patient notes that he previously was doing self-catheterization intermittent for urinary retention but had been able to urinate independently over the past few days and is thereby not been doing the catheterizations. The patient also reported gradually worsening lower extremity swelling over the past few days. He also reported some dysuria which is chronic and unchanged. Denied fever, chills. Denied chest discomfort, shortness of breath, nausea, vomiting, diarrhea. Laboratory evaluation in the [facility] room was remarkable for leukocytosis of 14.6, BUN 31, creatinine 2.49 (baseline 1.88), troponin 0.019, and a UA remarkable for UTI with coronavirus PCR positive. Lower extremity doppler was positive for DVT in the left leg with chest x-ray showing findings consistent with CHF. Review of systems: Pertinent positives and negatives as discussed in HPI, a complete review of systems was performed and all other systems are negative. Physical examination: General: non toxic, no distress, appears at stated age, overweight Derm: no unusual rashes/lesions no unusual ecchymoses, warm, dry Head: atraumatic, normocephalic, symmetric Eyes: EOMI, no lid lag, anicteric sclera, pupils equal round reactive to light ENT: Nose and ears atraumatic, no thrush, no pharyngeal erythema Neck: No thyromegaly, no cervical lymphadenopathy, trachea midline, supple Mouth: no lip lesion, mucus membranes moist Cardiovascular: S1S2 reg, no murmur, positive posterior tibial pulse bilateral, 2+ lower extremity pitting edema to thighs, capillary refill less than 2 seconds Lungs: CTA bilateral, no rhonchi, no rales , no accessory muscle use Abdominal: soft, nontender to palpation, colostomy bag in place with dark brown stool, no guarding, no appreciable organomegaly, normal bowel sounds, left scrotal tenderness noted, left proximal thigh tenderness also noted Ext: no gross muscle atrophy, muscle strength 5 out of 5 in all 4 extremities grossly, no contractures, Neuro: CN II-XI grossly intact, light touch intact all 4 extremities, finger to nose within normal limits, Psych: Alert, oriented, appropriate affect Assessment/plan Acute unprovoked DVT -Continue with heparin infusion Acute on chronic CHF exacerbation -Lasix IV every 12 hourly -Daily weights -Fluid restriction -Monitor electrolytes UTI with possible orchitis versus epididymitis -Continue with ceftriaxone -Follow up urine cultures -Obtain scrotal ultrasound Acute kidney injury on chronic kidney disease -Continue to monitor BMP COVID PCR positive -The patient notes he has received his vaccination earlier this year -Supplemental oxygen Chronic conditions: Acute kidney injury on chronic kidney disease, hypertension, hyperlipidemia, COPD DVT prophylaxis -Heparin infusion The patient is admitted with an anticipated greater than 2 midnight stay for evaluation of acute dvt CODE STATUS: Full Code Discussed with: Patient Anticipated discharge date: 2-[address]: Home Past Medical History Past Medical History: Coronary Artery Disease (CAD), Cancer, COPD, Deep Vein Thrombosis (DVT), Hyperlipidemia, Hypertension, Sleep Apnea/CPAP/BIPAP Additional Past Medical History / Comment(s): colon cancer, SKIN CANCER, colostomy History of Any Multi-Drug Resistant Organisms: None Reported Past Surgical History: Adenoidectomy, Heart Catheterization With Stent, Hernia Repair, Pacemaker, Tonsillectomy Additional Past Surgical History / Comment(s): colostomy Past Anesthesia/Blood Transfusion Reactions: No Reported Reaction Date of Last Stent Placement:: 2008 Past Psychological History: No Psychological Hx Reported Smoking Status: Never smoker Past Alcohol Use History: None Reported Past Drug Use History: None Reported - Past Family History Mother Family Medical History: Cancer Additional Family Medical History / Comment(s): breast cancer Father Additional Family Medical History / Comment(s): valve replacement and pacemaker. Brother(s) Additional Family Medical History / Comment(s): CABG Medications and Allergies Home Medications Medication Instructions Recorded Confirmed Type Aspirin [Adult Low Dose Aspirin EC] 81 mg PO DAILY 05/24/16 03/30/21 History Atorvastatin [Lipitor] 40 mg PO DAILY 05/24/16 03/30/21 History Ferrous Sulfate [Iron (65 MG 325 mg PO BID 03/30/21 03/30/21 History Elemental)] Amiodarone [Cordarone] 200 mg PO TID 30 Days #90 tab 07/07/21 Rx Clopidogrel [Plavix] 75 mg PO DAILY 30 Days #30 tab 04/07/21 Rx Losartan [Cozaar] 12.5 mg PO DAILY 30 Days #30 tab 04/07/21 Rx Metoprolol Tartrate [Lopressor] 25 mg PO BID 30 Days #60 tab 04/07/21 Rx Mexiletine [Mexitil] 150 mg PO TID 30 Days #90 cap 04/07/21 Rx Sodium Bicarbonate Tab 650 mg PO TID 30 Days #90 tab 04/07/21 Rx Tamsulosin [Flomax] 0.4 mg PO [id number] 30 Days #30 04/07/21 Rx cap.er.24h Allergies Allergy/AdvReac Type Severity Reaction Status Date / Time No Known Allergies Allergy Verified 06/13/21 00:07 Physical Exam Vitals: Vital Signs Temp Pulse Resp BP Pulse Ox 06/13/21 04:00 68 18 162/76 95 06/13/21 02:07 66 18 138/78 97 06/13/21 00:03 99.5 F 58 L 20 143/78 98 Intake and Output 06/12/21 06/12/21 06/13/21 14:59 22:59 06:59 Other: Weight 83.915 kg Results CBC & Chem 7: 06/13/21 01:24 06/13/21 01:24 Labs: Abnormal Lab Results - Last 24 Hours (Table) 06/13/21 06/13/21 06/13/21 Range/Units 01:24 01:24 01:24 WBC 14.6 H (3.8-10.6) k/uL RBC 3.07 L (4.30-5.90) m/uL Hgb 9.2 L (13.0-17.5) gm/dL Hct 27.7 L (39.0-53.0) % Neutrophils # 12.9 H (1.3-7.7) k/uL Lymphocytes # 0.7 L (1.0-4.8) k/uL Sodium 136 L (137-145) mmol/L BUN 31 H (9-20) mg/dL Creatinine 2.49 H (0.66-1.25) mg/dL Glucose 138 H (74-99) mg/dL AST 16 L (17-59) U/L Creatine Kinase 26 L (55-170) U/L Total Protein 5.7 L (6.3-8.2) g/dL Albumin 3.0 L (3.5-5.0) g/dL Urine Protein Trace H (Negative) Ur Leukocyte Esterase Large H (Negative) Urine WBC >182 H (0-5) /hpf Urine Bacteria Many H (None) /hpf Urine Mucus Rare H (None) /hpf Coronavirus (PCR) (Not Detectd) 06/13/21 Range/Units 03:55 WBC (3.8-10.6) k/uL RBC (4.30-5.90) m/uL Hgb (13.0-17.5) gm/dL Hct (39.0-53.0) % Neutrophils # (1.3-7.7) k/uL Lymphocytes # (1.0-4.8) k/uL Sodium (137-145) mmol/L BUN (9-20) mg/dL Creatinine (0.66-1.25) mg/dL Glucose (74-99) mg/dL AST (17-59) U/L Creatine Kinase (55-170) U/L Total Protein (6.3-8.2) g/dL Albumin (3.5-5.0) g/dL Urine Protein (Negative) Ur Leukocyte Esterase (Negative) Urine WBC (0-5) /hpf Urine Bacteria (None) /hpf Urine Mucus (None) /hpf Coronavirus (PCR) Detected A (Not Detectd)
--- NOTE | 2021-06-13 07:43 | US ---
EXAMINATION TYPE: US scrotum with doppler. Grayscale and color Doppler Duplex imaging performed of randy mcgee scrotum. DATE OF EXAM: 06/13/2021 COMPARISON: NONE CLINICAL HISTORY: pain. Patient self caths. Pain. Covid +. EXAM MEASUREMENTS: TESTICLES: Right Testicle: 2.6 x 2.4 x 1.9 cm Left Testicle: 2.9 x 2.7 x 2.5 cm EPIDIDYMIS HEAD: Right Epididymis: 1.4 x 0.9 x 0.7 cm Left Epididymis: 1.4 x 0.8 x 0.7 cm Doppler performed to assess for testicular vascularity; good bilateral color flow and waveforms are s een. . Presence of hydroceles: Left with septations Presence of varicoceles: no Prominent bilateral epididymis. Bilateral testicles appear heterogenous. IMPRESSION: Small to moderate-sized left scrotal nonsimple fluid collection or hydrocele. Both testic les show symmetric heterogeneity and increased blood flow raising concern for bilateral orchitis. Cor relate clinically.
[2021-06-13] MEDS: FUROSEMIDE 10 MG/ML 10 ML VIAL IV SCH ×2 (08:20→21:53)
[2021-06-13] MEDS ORDERED: MORPHINE SULFATE 2 MG/ML SYRINGE IV PRN (11:21)
--- NOTE | 2021-06-13 11:28 | P.PN ---
Subjective Progress Note Date: 06/13/21 Patient is lethargic and sleepy this morning. Postvoid residual bladder scan showed 600 mL of urine and a Meza catheter is ordered for insertion. Objective - Vital Signs Vital signs: Vital Signs Temp 98.8 F 06/13/21 08:17 Pulse 61 06/13/21 08:17 Resp 18 06/13/21 08:17 BP 146/97 06/13/21 08:17 Pulse Ox 96 06/13/21 08:17 Intake & Output 06/12/21 06/13/21 06/13/21 18:59 06:59 18:59 Output Total 250 Balance -250 Weight 83.915 kg Output: Urine 250 Coude 250 - Exam General: The patient is awake and alert, in no distress Eye: there is normal conjunctiva bilaterally. Neck: The neck is supple, there is no JVD. Cardiovascular: Normal S1-S2, no S3-S4, no murmurs. Respiratory: Lungs clear to auscultation bilaterally Gastrointestinal: Abdomen is soft, nontender Musculoskeletal: There is no pedal edema. Neurological:. Speech is normal. Skin: Skin is warm and dry - Labs CBC & Chem 7: 06/13/21 01:24 06/13/21 01:24 Labs: Abnormal Lab Results - Last 24 Hours (Table) 06/13/21 06/13/21 06/13/21 Range/Units 01:24 01:24 01:24 WBC 14.6 H (3.8-10.6) k/uL RBC 3.07 L (4.30-5.90) m/uL Hgb 9.2 L (13.0-17.5) gm/dL Hct 27.7 L (39.0-53.0) % Neutrophils # 12.9 H (1.3-7.7) k/uL Lymphocytes # 0.7 L (1.0-4.8) k/uL APTT (22.0-30.0) sec Sodium 136 L (137-145) mmol/L BUN 31 H (9-20) mg/dL Creatinine 2.49 H (0.66-1.25) mg/dL Glucose 138 H (74-99) mg/dL AST 16 L (17-59) U/L Creatine Kinase 26 L (55-170) U/L Total Protein 5.7 L (6.3-8.2) g/dL Albumin 3.0 L (3.5-5.0) g/dL Urine Protein Trace H (Negative) Ur Leukocyte Esterase Large H (Negative) Urine WBC >182 H (0-5) /hpf Urine Bacteria Many H (None) /hpf Urine Mucus Rare H (None) /hpf Coronavirus (PCR) (Not Detectd) 06/13/21 06/13/21 Range/Units 03:55 10:11 WBC (3.8-10.6) k/uL RBC (4.30-5.90) m/uL Hgb (13.0-17.5) gm/dL Hct (39.0-53.0) % Neutrophils # (1.3-7.7) k/uL Lymphocytes # (1.0-4.8) k/uL APTT 57.9 H (22.0-30.0) sec Sodium (137-145) mmol/L BUN (9-20) mg/dL Creatinine (0.66-1.25) mg/dL Glucose (74-99) mg/dL AST (17-59) U/L Creatine Kinase (55-170) U/L Total Protein (6.3-8.2) g/dL Albumin (3.5-5.0) g/dL Urine Protein (Negative) Ur Leukocyte Esterase (Negative) Urine WBC (0-5) /hpf Urine Bacteria (None) /hpf Urine Mucus (None) /hpf Coronavirus (PCR) Detected A (Not Detectd) Microbiology - Last 24 Hours (Table) 06/13/21 01:24 Urine Culture - Preliminary Urine,Voided Assessment and Plan Assessment: This is a 80-year-old male with past medical history noted below who presented to the emergency room with left lower extremity and groin pain. Patient was evaluated in the ER and admitted to the hospital for further management of his medical problems noted below 1. Left lower extremity DVT started on IV heparin. 2. Suspected CHF exacerbation and started on IV Lasix. Monitor kidney function closely while on diuretics. Cardiology consulted for further evaluation. Echocardiogram ordered. 3. Urinary retention, 600 mL of urine on bladder scan. status post Meza catheter insertion. Patient is maintained on Proscar and Flomax. Urology consulted for further evaluation. 4. Complicated UTI with suspected orchitis, started on IV ceftriaxone 2 g daily awaiting urology evaluation. Ultrasound showed left scrotal fluid collection suspicious for hydrocele 5. Acute kidney injury on stage IIIB chronic kidney disease 6. COVID-19 positive PCI in asymptomatic vaccinated patient 7. History of ventricular tachycardia maintained on amiodarone and mexiletine Awaiting lab work from today. Continue supportive care otherwise. Doppler precaution.
[2021-06-13 11:40] LABS: African American GFR (CKD) 30 (>60 ml/min/1.73 sqM); Anion Gap 10 mmol/L; Blood Urea Nitrogen 29 mg/dL (9-20); Calcium 8.3 mg/dL (8.4-10.2); Carbon Dioxide 23 mmol/L (22-30); Chloride 101 mmol/L (98-107); Glucose 124 mg/dL (74-99); Non-African American GFR(CKD) 26 (>60 ml/min/1.73 sqM); Potassium 3.3 mmol/L (3.5-5.1); Sodium 134 mmol/L (137-145)
[2021-06-13] MEDS: AMIODARONE 200 MG TAB PO SCH ×3 (11:43→21:52)
[2021-06-13] MEDS: FINASTERIDE 5 MG TAB PO SCH (11:44)
[2021-06-13] MEDS: CLOPIDOGREL 75 MG TAB PO SCH (11:44)
[2021-06-13] MEDS: METOPROLOL TARTRATE 12.5 MG TAB PO SCH ×2 (11:44→21:52)
[2021-06-13] MEDS: CHOLECALCIFEROL 25 MCG (1000 IU) TABLET PO SCH (11:44)
[2021-06-13] MEDS: FERROUS SULFATE 325 MG TAB PO SCH ×2 (11:44→21:52)
[2021-06-13] MEDS: ASPIRIN 81 MG PO SCH (11:44)
[2021-06-13] MEDS: SODIUM BICARBONATE TAB 650 MG TAB PO SCH ×3 (11:45→21:52)
[2021-06-13] MEDS: MEXILETINE 150 MG CAP PO SCH ×2 (11:45→21:53)
[2021-06-13] MEDS: TAMSULOSIN 0.4 MG CAP.ER.24H PO SCH (11:45)
--- NOTE | 2021-06-13 12:59 | P.GSCN ---
History of Present Illness Consult date: 06/13/21 History of present illness: 80-year-old gentleman who came to the hospital because of left lower abdominal pain and left extremity pain. He has been diagnosed with a deep venous thrombosis on the left side. He has urinary retention both acute and chronic and for this reason we were asked to to see the patient. I saw the patient at [facility] in March for urine retention. A cath was laced. He eventually went home voidingt without the catheter. He ended up back in retention and Dr Cool placed him on CIC. He is on flomax and proscar. He started to void but had problems again He could not do cic. He ended up in urine retention here in the er and 600 ml of incfected urine was drained. He saw Dr Pulido years ago for stones. He is unsure whether voiding issues were discussed. He is unsure whether Dr Cool discussed turp. He had an ap resection years ago for rectal ca. Review of Systems All systems: negative - Constitutional Denies fever, Denies weight loss - EENT Eyes: denies blurred vision Ears, nose, mouth and throat: Denies dysphagia - Cardiovascular Denies chest pain, Denies shortness of breath - Respiratory Denies cough, Denies 7 - Gastrointestinal Reports as per HPI - Genitourinary Denies dysuria, Denies hematuria - Integumentary Denies rash, Denies unusual bruising - Neurological Denies headaches, Denies syncope - Hematologic/Lymphatic Denies easy bleeding, Denies easy bruising Past Medical History Past Medical History: Coronary Artery Disease (CAD), Cancer, COPD, Deep Vein Thrombosis (DVT), Hyperlipidemia, Hypertension, Sleep Apnea/CPAP/BIPAP Additional Past Medical History / Comment(s): colon cancer, SKIN CANCER, colostomy History of Any Multi-Drug Resistant Organisms: None Reported Past Surgical History: Adenoidectomy, Heart Catheterization With Stent, Hernia Repair, Pacemaker, Tonsillectomy Additional Past Surgical History / Comment(s): colostomy Past Anesthesia/Blood Transfusion Reactions: No Reported Reaction Date of Last Stent Placement:: 2008 Past Psychological History: No Psychological Hx Reported Smoking Status: Never smoker Past Alcohol Use History: None Reported Past Drug Use History: None Reported - Past Family History Mother Family Medical History: Cancer Additional Family Medical History / Comment(s): breast cancer Father Additional Family Medical History / Comment(s): valve replacement and pacemaker. Brother(s) Additional Family Medical History / Comment(s): CABG Medications and Allergies Home Medications Medication Instructions Recorded Confirmed Type Aspirin [Adult Low Dose Aspirin EC] 81 mg PO DAILY@89905/24/16 06/13/21 History Atorvastatin [Lipitor] 40 mg PO DAILY@209905/24/16 06/13/21 History Ferrous Sulfate [Iron (65 MG 325 mg PO BID@899,209903/30/21 06/13/21 History Elemental)] Amiodarone [Cordarone] 200 mg PO TID@899,1599,209906/13/21 06/13/21 History Cholecalciferol [Vitamin D3 (25 25 mcg PO DAILY@89906/13/21 06/13/21 History Mcg = 1000 Iu)] Clopidogrel [Plavix] 75 mg PO DAILY@89906/13/21 06/13/21 History Finasteride [Proscar] 5 mg PO DAILY@89906/13/21 06/13/21 History Metoprolol Tartrate [Lopressor] 12.5 mg PO BID@09,209906/13/21 06/13/21 History Mexiletine [Mexitil] 150 mg PO BID@09,209906/13/21 06/13/21 History Sodium Bicarbonate Tab 650 mg PO TID@0900,1600,209906/13/21 06/13/21 History Tamsulosin [Flomax] 0.4 mg PO DAILY@89906/13/21 06/13/21 History Allergies Allergy/AdvReac Type Severity Reaction Status Date / Time No Known Allergies Allergy Verified 06/13/21 08:20 Surgical - Exam Vital Signs Temp Pulse Resp BP Pulse Ox 99.5 F 58 L 20 143/78 98 06/13/21 00:03 06/13/21 00:03 06/13/21 00:03 06/13/21 00:03 06/13/21 00:03 - General well developed, well nourished, no distress - Eyes PERRL - ENT no hearing loss - Neck trachea midline - Respiratory normal expansion, normal respiratory effort - Cardiovascular Rhythm: regular - Abdomen Abdomen: soft, non tender - Genitourinary indwelling cath with cloudy urine. Swollen tender left hemiscrotum c/w epididmorchitis. - Neurologic normal sensation - Musculoskeletal normal posture - Psychiatric oriented to time, oriented to person, oriented to place, speech is normal, memory intact Results - Labs 06/13/21 01:24 06/13/21 10:11 Abnormal Lab Results - Last 24 Hours (Table) 06/13/21 06/13/21 06/13/21 Range/Units 01:24 01:24 01:24 WBC 14.6 H (3.8-10.6) k/uL RBC 3.07 L (4.30-5.90) m/uL Hgb 9.2 L (13.0-17.5) gm/dL Hct 27.7 L (39.0-53.0) % Neutrophils # 12.9 H (1.3-7.7) k/uL Lymphocytes # 0.7 L (1.0-4.8) k/uL APTT (22.0-30.0) sec Sodium 136 L (137-145) mmol/L Potassium (3.5-5.1) mmol/L BUN 31 H (9-20) mg/dL Creatinine 2.49 H (0.66-1.25) mg/dL Glucose 138 H (74-99) mg/dL Calcium (8.4-10.2) mg/dL AST 16 L (17-59) U/L Creatine Kinase 26 L (55-170) U/L Total Protein 5.7 L (6.3-8.2) g/dL Albumin 3.0 L (3.5-5.0) g/dL Urine Protein Trace H (Negative) Ur Leukocyte Esterase Large H (Negative) Urine WBC >182 H (0-5) /hpf Urine Bacteria Many H (None) /hpf Urine Mucus Rare H (None) /hpf Coronavirus (PCR) (Not Detectd) 06/13/21 06/13/21 06/13/21 Range/Units 03:55 10:11 10:11 WBC (3.8-10.6) k/uL RBC (4.30-5.90) m/uL Hgb (13.0-17.5) gm/dL Hct (39.0-53.0) % Neutrophils # (1.3-7.7) k/uL Lymphocytes # (1.0-4.8) k/uL APTT 57.9 H (22.0-30.0) sec Sodium 134 L (137-145) mmol/L Potassium 3.3 L (3.5-5.1) mmol/L BUN 29 H (9-20) mg/dL Creatinine 2.30 H (0.66-1.25) mg/dL Glucose 124 H (74-99) mg/dL Calcium 8.3 L (8.4-10.2) mg/dL AST (17-59) U/L Creatine Kinase (55-170) U/L Total Protein (6.3-8.2) g/dL Albumin (3.5-5.0) g/dL Urine Protein (Negative) Ur Leukocyte Esterase (Negative) Urine WBC (0-5) /hpf Urine Bacteria (None) /hpf Urine Mucus (None) /hpf Coronavirus (PCR) Detected A (Not Detectd) Microbiology - Last 24 Hours (Table) 06/13/21 01:24 Urine Culture - Preliminary Urine,Voided Diabetes panel 06/13/21 06/13/21 Range/Units 01:24 10:11 Sodium 136 L 134 L (137-145) mmol/L Potassium 3.9 3.3 L (3.5-5.1) mmol/L Chloride 103 101 (98-107) mmol/L Carbon Dioxide 23 23 (22-30) mmol/L BUN 31 H 29 H (9-20) mg/dL Creatinine 2.49 H 2.30 H (0.66-1.25) mg/dL Glucose 138 H 124 H (74-99) mg/dL Calcium 8.4 8.3 L (8.4-10.2) mg/dL AST 16 L (17-59) U/L ALT 14 (4-49) U/L Alkaline Phosphatase 88 (38-126) U/L Total Protein 5.7 L (6.3-8.2) g/dL Albumin 3.0 L (3.5-5.0) g/dL Calcium panel 06/13/21 06/13/21 Range/Units 01:24 10:11 Calcium 8.4 8.3 L (8.4-10.2) mg/dL Phosphorus 3.6 (2.5-4.5) mg/dL Albumin 3.0 L (3.5-5.0) g/dL Pituitary panel 06/13/21 06/13/21 Range/Units 01:24 10:11 Sodium 136 L 134 L (137-145) mmol/L Potassium 3.9 3.3 L (3.5-5.1) mmol/L Chloride 103 101 (98-107) mmol/L Carbon Dioxide 23 23 (22-30) mmol/L BUN 31 H 29 H (9-20) mg/dL Creatinine 2.49 H 2.30 H (0.66-1.25) mg/dL Glucose 138 H 124 H (74-99) mg/dL Calcium 8.4 8.3 L (8.4-10.2) mg/dL Adrenal panel 06/13/21 06/13/21 Range/Units 01:24 10:11 Sodium 136 L 134 L (137-145) mmol/L Potassium 3.9 3.3 L (3.5-5.1) mmol/L Chloride 103 101 (98-107) mmol/L Carbon Dioxide 23 23 (22-30) mmol/L BUN 31 H 29 H (9-20) mg/dL Creatinine 2.49 H 2.30 H (0.66-1.25) mg/dL Glucose 138 H 124 H (74-99) mg/dL Calcium 8.4 8.3 L (8.4-10.2) mg/dL Total Bilirubin 0.4 (0.2-1.3) mg/dL AST 16 L (17-59) U/L ALT 14 (4-49) U/L Alkaline Phosphatase 88 (38-126) U/L Total Protein 5.7 L (6.3-8.2) g/dL Albumin 3.0 L (3.5-5.0) g/dL Assessment and Plan Assessment: Impression: left dvt. uti with epididmorchitis. urine retention acute and chronic rectal ca sp ap resection. REC: c/w fuentes ab rx broad spectrum then culture specific. We will see the patient evenutally as an op to determine the status of his prostate and bladder and eventually decide on turp Time with Patient: Greater than 30
[2021-06-13] MEDS ORDERED: POTASSIUM CHLORIDE ER 20 MEQ TAB.ER PO STA (15:09)
[2021-06-13] MEDS: ATORVASTATIN 40 MG TAB PO SCH (21:52)
[2021-06-14] MEDS ORDERED: AZITHROMYCIN 500 MG in SODIUM CHLORIDE 0.9% 250 ML IVPB SCH (04:00)
[2021-06-14 06:06] LABS: INR 1.1 (<1.2); Partial Thromboplastin Time 57.3 sec (22.0-30.0); Prothrombin Time 11.9 sec (9.0-12.0)
--- NOTE | 2021-06-14 08:11 | P.CRDCN ---
History of Present Illness Consult date: 06/14/21 Chief complaint: Lower extremity edema History of present illness: This is an 80-year-old gentleman who sees Dr. Rogers regularly with coronary artery disease and prior stenting of the RCA and LAD as well as history of ventricular tachycardia status post AICD and also chronic kidney disease as well as hypertension and dyslipidemia. He presented to the emergency department mainly because of dysuria. He is known to have prostate disease. That has been managed by the neurology service. For the last few days he has been experiencing increasing in the dysuria and he's unable to urinate. Beside that he has been noticing increasing in the lower extremities edema. He also was having pain in the left leg. No increasing shortness of breath and no symptoms of chest pain or chest discomfort nor dizziness or lightheadedness or any feeling of heart racing or fluttering or presyncope or syncope. No symptoms of fever or chills. In the emergency department he was tested positive for COVID and he was diagnosed with deep venous thrombosis of the left leg and subsequently he was started on heparin IV. Troponin was mildly elevated. The EKG showed what it seems to be questionable underlying atrial fibrillation with wide complex rhythm. Differential diagnosis could be slow ventricular tachycardia. The chest x-ray showed bilateral infiltrates. The patient on examination does have bilateral lower extremities edema. Currently he is on Lasix IV. NT proBNP is about 5000. WBCs 14,000. Creatinine is 2.49 with a baseline creatinine of 4.88. Past Medical History Past Medical History: Coronary Artery Disease (CAD), Cancer, COPD, Deep Vein Thrombosis (DVT), Hyperlipidemia, Hypertension, Sleep Apnea/CPAP/BIPAP Additional Past Medical History / Comment(s): colon cancer, SKIN CANCER, colostomy History of Any Multi-Drug Resistant Organisms: None Reported Past Surgical History: Adenoidectomy, Heart Catheterization With Stent, Hernia Repair, Pacemaker, Tonsillectomy Additional Past Surgical History / Comment(s): colostomy Past Anesthesia/Blood Transfusion Reactions: No Reported Reaction Date of Last Stent Placement:: 2008 Past Psychological History: No Psychological Hx Reported Smoking Status: Never smoker Past Alcohol Use History: None Reported Past Drug Use History: None Reported - Past Family History Mother Family Medical History: Cancer Additional Family Medical History / Comment(s): breast cancer Father Additional Family Medical History / Comment(s): valve replacement and pacemaker. Brother(s) Additional Family Medical History / Comment(s): CABG Medications and Allergies Home Medications Medication Instructions Recorded Confirmed Type Aspirin [Adult Low Dose Aspirin EC] 81 mg PO DAILY@89905/24/16 06/13/21 History Atorvastatin [Lipitor] 40 mg PO DAILY@209905/24/16 06/13/21 History Ferrous Sulfate [Iron (65 MG 325 mg PO BID@899,209903/30/21 06/13/21 History Elemental)] Amiodarone [Cordarone] 200 mg PO TID@899,1599,209906/13/21 06/13/21 History Cholecalciferol [Vitamin D3 (25 25 mcg PO DAILY@89906/13/21 06/13/21 History Mcg = 1000 Iu)] Clopidogrel [Plavix] 75 mg PO DAILY@89906/13/21 06/13/21 History Finasteride [Proscar] 5 mg PO DAILY@89906/13/21 06/13/21 History Metoprolol Tartrate [Lopressor] 12.5 mg PO BID@09,209906/13/21 06/13/21 History Mexiletine [Mexitil] 150 mg PO BID@0900,209906/13/21 06/13/21 History Sodium Bicarbonate Tab 650 mg PO TID@0900,1600,209906/13/21 06/13/21 History Tamsulosin [Flomax] 0.4 mg PO DAILY@89906/13/21 06/13/21 History Allergies Allergy/AdvReac Type Severity Reaction Status Date / Time No Known Allergies Allergy Verified 06/13/21 08:20 Physical Exam Vitals: Vital Signs Temp Pulse Pulse Resp BP Pulse Ox 06/14/21 06:29 98.7 F 59 L 18 129/70 94 L 06/14/21 04:00 61 18 06/14/21 02:53 18 06/14/21 00:30 59 L 59 L 18 113/92 95 06/13/21 22:45 97.1 F L 63 18 128/65 95 06/13/21 19:00 60 18 106/66 95 06/13/21 17:27 61 18 108/57 95 06/13/21 15:23 64 18 113/62 96 06/13/21 11:56 151 H 18 109/86 95 06/13/21 09:00 80 06/13/21 08:17 98.8 F 61 18 146/97 96 Intake and Output 06/13/21 06/14/21 06/14/21 22:59 06:59 14:59 Intake Total 250 Output Total 4000 Balance 250 -4000 Intake: Intake, IV Titration 250 Amount Heparin Sod,Pork in 0.45% 250 NaCl 25,000 unit In 0.45 % NaCl 1 250ml.bag @ 18 UNITS/KG/HR 15.105 mls/hr IV .[id number] [facility] Rx#: [id number] Output: Urine 4000 Other: Voiding Method Indwelling Catheter - Constitutional General appearance: no acute distress - Respiratory Respiratory: bilateral: diminished - Cardiovascular Rhythm: regular Heart sounds: normal: S1, S2 Abnormal Heart Sounds: systolic murmur Results 06/13/21 01:24 06/13/21 10:11 Coagulation 06/13/21 06/14/21 Range/Units 10:11 04:39 PT 11.9 (9.0-12.0) sec APTT 57.9 H 57.3 H (22.0-30.0) sec Comprehensive Metabolic Panel 06/13/21 Range/Units 10:11 Sodium 134 L (137-145) mmol/L Potassium 3.3 L (3.5-5.1) mmol/L Chloride 101 (98-107) mmol/L Carbon Dioxide 23 (22-30) mmol/L BUN 29 H (9-20) mg/dL Creatinine 2.30 H (0.66-1.25) mg/dL Glucose 124 H (74-99) mg/dL Calcium 8.3 L (8.4-10.2) mg/dL Current Medications Generic Name Dose Route Start Last Admin Trade Name Freq PRN Reason Stop Dose Admin Amiodarone HCl 200 mg 06/13/21 09:00 06/13/21 21:52 Amiodarone 200 Mg Tab PO 200 mg TID@0900,1600,2100 [facility] Administration Aspirin 81 mg 06/13/21 09:00 06/13/21 11:44 Aspirin 81 Mg PO 81 mg DAILY@0900 [facility] Administration Atorvastatin Calcium 40 mg 06/13/21 21:00 06/13/21 21:52 Atorvastatin 40 Mg Tab PO 40 mg DAILY@2100 [facility] Administration Cholecalciferol 25 mcg 06/13/21 09:00 06/13/21 11:44 Cholecalciferol 25 Mcg (1000 Iu) Tablet PO 25 mcg DAILY@899 [facility] Administration Clopidogrel Bisulfate 75 mg 06/13/21 09:00 06/13/21 11:44 Clopidogrel 75 Mg Tab PO 75 mg DAILY@899 [facility] Administration Ferrous Sulfate 325 mg 06/13/21 09:00 06/13/21 21:52 Ferrous Sulfate 325 Mg Tab PO 325 mg BID@899,2099 [facility] Administration Finasteride 5 mg 06/13/21 09:00 06/13/21 11:44 Finasteride 5 Mg Tab PO 5 mg DAILY@899 [facility] Administration Furosemide 60 mg 06/13/21 09:00 06/13/21 21:53 Furosemide 10 Mg/Ml 10 Ml Vial IV 60 mg Q12HR [facility] Administration Heparin Sodium (Porcine) 0 unit 06/13/21 03:50 Heparin Sodium 1,000 Un/Ml (10ml Vl) IV PER PROTOCOL PRN Low PTT Protocol Heparin Sodium/Sodium Chloride 250 mls @ 15.105 mls/hr 06/13/21 04:00 06/13/21 22:24 25,000 unit/ Sodium Chloride IV 18 units/kg/hr .[id number] [facility] 15.105 mls/hr Administration Protocol 18 UNITS/KG/HR Ceftriaxone Sodium 2 gm/ 50 mls @ 100 mls/hr 06/13/21 09:00 06/13/21 11:00 Sodium Chloride IVPB Not Given Q24HR [facility] Metoprolol Tartrate 12.5 mg 06/13/21 09:00 06/13/21 21:52 Metoprolol Tartrate 12.5 Mg Tab PO 12.5 mg BID@ [facility] Administration Mexiletine HCl 150 mg 06/13/21 09:00 06/13/21 21:53 Mexiletine 150 Mg Cap PO 150 mg BID@ [facility] Administration Morphine Sulfate 2 mg 06/13/21 11:21 Morphine Sulfate 2 Mg/Ml Syringe IV Q4HR PRN Severe Pain Naloxone HCl 0.2 mg 06/13/21 02:54 Naloxone 0.4 Mg/Ml 1 Ml Vial IV Q2M PRN Opioid Reversal Ondansetron HCl 4 mg 06/13/21 02:54 Ondansetron 4 Mg/2 Ml Vial IVP Q8HR PRN Nausea And Vomiting Sodium Bicarbonate 650 mg 06/13/21 09:00 06/13/21 21:52 Sodium Bicarbonate Tab 650 Mg Tab PO 650 mg TID@0900,1600,2100 [facility] Administration Tamsulosin HCl 0.4 mg 06/13/21 09:00 06/13/21 11:45 Tamsulosin 0.4 Mg Cap.Er.24h PO 0.4 mg DAILY@0900 [facility] Administration Intake and Output 06/13/21 06/14/21 06/14/21 22:59 06:59 14:59 Intake Total 250 Output Total 4000 Balance 250 -4000 Intake: Intake, IV Titration 250 Amount Heparin Sod,Pork in 0.45% 250 NaCl 25,000 unit In 0.45 % NaCl 1 250ml.bag @ 18 UNITS/KG/HR 15.105 mls/hr IV .[id number] [facility] Rx#: [id number] Output: Urine 4000 Other: Voiding Method Indwelling Catheter 06/13/21 01:24 06/13/21 10:11 Assessment and Plan Assessment: Assessment #1 dysuria secondary to urinary obstruction #2 fluid retention probably secondary to the above #3 deep venous thrombosis, acute #4 possible pneumonia #5 coronary artery disease #6 history of V. tach status post AICD Plan #1 continue the IV Lasix for additional 24 hours #2 continue monitoring the kidney function and electrolytes #3 obtain an echocardiogram was Doppler #4 urology service is on the case as well #5 continue heparin IV #6 follow up with the patient
[2021-06-14] MEDS: ASPIRIN 81 MG PO SCH (08:25)
[2021-06-14] MEDS: TAMSULOSIN 0.4 MG CAP.ER.24H PO SCH (08:25)
[2021-06-14] MEDS: MEXILETINE 150 MG CAP PO SCH ×2 (08:25→12:20)
[2021-06-14] MEDS: CLOPIDOGREL 75 MG TAB PO SCH (08:25)
[2021-06-14] MEDS: CHOLECALCIFEROL 25 MCG (1000 IU) TABLET PO SCH (08:25)
[2021-06-14] MEDS: FERROUS SULFATE 325 MG TAB PO SCH ×2 (08:25→22:41)
[2021-06-14] MEDS: SODIUM BICARBONATE TAB 650 MG TAB PO SCH ×3 (12:20→22:41)
[2021-06-14] MEDS: AMIODARONE 200 MG TAB PO SCH ×3 (12:20→22:41)
[2021-06-14] MEDS: FINASTERIDE 5 MG TAB PO SCH (12:20)
[2021-06-14] MEDS: FUROSEMIDE 10 MG/ML 10 ML VIAL IV SCH ×2 (12:21→22:42)
[2021-06-14] MEDS: METOPROLOL TARTRATE 12.5 MG TAB PO SCH ×2 (12:21→22:41)
[2021-06-14 12:33] LABS: Basophils # (A) 0.03 X 10*3/uL (0.00-0.10); Basophils % (A) 0.2 %; Eosinophils # (A) 0.04 X 10*3/uL (0.04-0.35); Eosinophils % (A) 0.3 %; HCT 30.4 % (39.6-50.0); HGB 9.5 g/dL (13.0-17.0); Lymphocytes # (A) 1.39 X 10*3/uL (0.90-5.00); Lymphocytes % (A) 11.1 %; MCH 28.3 pg (27.0-32.0); MCHC 31.3 g/dL (32.0-37.0); MCV 90.5 fL (80.0-97.0); Monocytes # (A) 0.93 X 10*3/uL (0.20-1.00); Monocytes % (A) 7.4 %; Neutrophils # (A) 10.06 X 10*3/uL (1.80-7.70); Neutrophils % (A) 80.3 %; Platelet Count 300 X 10*3/uL (140-440); RBC 3.36 X 10*6/uL (4.40-5.60); RDW 16.3 % (11.5-14.5); WBC 12.54 X 10*3/uL (4.50-10.00)
--- NOTE | 2021-06-14 12:57 | ECHOF ---
Referral Reason:CHF MEASUREMENTS -------- HEIGHT: 167.6 cm WEIGHT: 83.9 kg BP: 129/70 RVIDd: 4.8 cm (< 3.3) IVSd: 1.2 cm (0.6 - 1.1) LVIDd: 5.1 cm (3.9 - 5.3) LVPWd: 1.4 cm (0.6 - 1.1) IVSs: 1.3 cm LVIDs: 3.8 cm LVPWs: 2.1 cm LAESV Index (A-L): 47.67 ml/m Ao Diam: 3.5 cm (2.0 - 3.7) AV Cusp: 1.8 cm (1.5 - 2.6) MV EXCURSION: 22.252 mm (> 18.000) MV EF SLOPE: 150 mm/s (70 - 150) EPSS: 0.9 cm MV E Bobby: 0.91 m/s MV DecT: 322 ms MV A Bobby: 0.43 m/s MV E/A Ratio: 2.10 AV maxP.29 mmHg AV meanP.30 mmHg RAP: 5.00 mmHg RVSP: 40.64 mmHg FINDINGS -------- Sinus rhythm. This was a technically adequate study. The left ventricular size is normal. There is mild concentric left ventricular hypertrophy. Overa ll left ventricular systolic function is mild-moderately impaired with, an EF between 40 - 45 %. The right ventricle is moderate to severely enlarged. LA is severely dilated >40 ml/m2 The right atrium was not well visualized. Electronic pacemaker lead seen in the right atrial cavity . Interatrial and interventricular septum intact. Trace amount of aortic regurgitation. There is mild aortic stenosis present. Peak/mean gradient across the Aortic Valve is 18.29mmHg / 9.30mmHg. Vwze-kj-ebuzzahu mitral regurgitation is present. Rcsq-bs-rxkiexzg tricuspid regurgitation present. There is mild to moderate pulmonary hypertension. The right ventricular systolic pressure, as measured by Doppler, is 40.64mmHg. There is no pulmonic regurgitation present. The aortic root size is normal. IVC Not well visulized. There is no pericardial effusion. CONCLUSIONS -------- 1. The left ventricular size is normal. 2. There is mild concentric left ventricular hypertrophy. 3. Overall left ventricular systolic function is mild-moderately impaired with, an EF between 40 - 45 %. 4. The right ventricle is moderate to severely enlarged. 5. LA is severely dilated >40 ml/m2 6. Trace amount of aortic regurgitation. 7. There is mild aortic stenosis present. 8. Peak/mean gradient across the Aortic Valve is 18.29mmHg / 9.30mmHg. 9. Ghoj-oz-zafcfhgk mitral regurgitation is present. 10. Qiba-sb-gpncaetb tricuspid regurgitation present. 11. There is mild to moderate pulmonary hypertension. 12. The right ventricular systolic pressure, as measured by Doppler, is 40.64mmHg. MOLD COOLER: Jasmin Spivey RDCS
--- NOTE | 2021-06-14 15:20 | P.PN ---
Subjective Patient is doing fairly well today. He does not have any complaints. No acute events overnight reported by nursing staff. Objective - Vital Signs Vital signs: Vital Signs Temp 98.0 F 06/14/21 14:47 Pulse 63 06/14/21 14:47 Resp 18 06/14/21 14:47 BP 96/51 06/14/21 14:47 Pulse Ox 97 06/14/21 14:47 Intake & Output 06/13/21 06/14/21 06/14/21 18:59 06:59 18:59 Intake Total 250 150.295 Output Total 450 4000 Balance -450 -3750 150.295 Weight 83.915 kg Intake: Intake, IV Titration 250 150.295 Amount Heparin Sod,Pork in 0.45% 250 150.295 NaCl 25,000 unit In 0.45 % NaCl 1 250ml.bag @ 18 UNITS/KG/HR 15.105 mls/hr IV .[id number] [facility] Rx#: [id number] Output: Urine 450 4000 Coude 250 Other: Voiding Method Indwelling Catheter Indwelling Catheter - Exam General: The patient is awake and alert, in no distress Eye: there is normal conjunctiva bilaterally. Neck: The neck is supple, there is no JVD. Cardiovascular: Normal S1-S2, no S3-S4, no murmurs. Respiratory: Lungs clear to auscultation bilaterally Gastrointestinal: Abdomen is soft, nontender Musculoskeletal: There is no pedal edema. Neurological:. Speech is normal. Skin: Skin is warm and dry - Labs CBC & Chem 7: 06/14/21 04:39 06/13/21 10:11 Labs: Abnormal Lab Results - Last 24 Hours (Table) 06/14/21 06/14/21 Range/Units 04:39 04:39 WBC 12.54 H (4.50-10.00) X 10*3/uL RBC 3.36 L (4.40-5.60) X 10*6/uL Hgb 9.5 L (13.0-17.0) g/dL Hct 30.4 L (39.6-50.0) % MCHC 31.3 L (32.0-37.0) g/dL RDW 16.3 H (11.5-14.5) % Immature Gran # 0.09 H (0.00-0.04) X 10*3/uL Neutrophils # 10.06 H (1.80-7.70) X 10*3/uL APTT 57.3 H (22.0-30.0) sec Microbiology - Last 24 Hours (Table) 06/13/21 01:24 Urine Culture - Preliminary Urine,Voided Gram Neg Bacilli Assessment and Plan Assessment: This is a 80-year-old male with past medical history noted below who presented to the emergency room with left lower extremity and groin pain. Patient was evaluated in the ER and admitted to the hospital for further management of his medical problems noted below 1. Left lower extremity DVT started on IV heparin. May transition to one of the novel agent tomorrow 2. Acute systolic CHF exacerbation: started on IV Lasix. Monitor kidney function closely while on diuretics. Cardiology consulted for further evaluation. Echocardiogram showed EF of 40-45%. 3. Urinary retention, status post Meza catheter insertion. Patient is maintained on Proscar and Flomax. Urology consulted for further evaluation. Will most likely need to go home with Meza catheter pending TURP evaluation 4. Complicated UTI with suspected orchitis, started on IV ceftriaxone 2 g daily awaiting urine cultures to finalize. Ultrasound showed left scrotal fluid collection suspicious for hydrocele 5. Acute kidney injury on stage IIIB chronic kidney disease 6. COVID-19 positive PCR in asymptomatic vaccinated patient 7. History of ventricular tachycardia maintained on amiodarone and mexiletine Today, I reviewed his medication list and lab work results. Continue current regimen. Transition IV Lasix to oral tomorrow. Repeat lab work in the morning. Anticipate discharge home within the next day or 2.
[2021-06-14] MEDS: HEPARIN SOD,PORK IN 0.45% NACL 25,000 UNIT in 0.45% NACL 1 250ML.BAG IV SCH (15:46)
[2021-06-14 18:00] LABS: Anion Gap 12.8 mmol/L (4.00-12.00); BUN/Creat Ratio 10.87 Ratio (12.00-20.00); Calcium 8.1 mg/dL (8.7-10.3); Carbon Dioxide 28.2 mmol/L (21.6-31.8); Magnesium 1.5 mg/dL (1.5-2.4); Non-African American GFR(CKD) 25.9 (60.0-200.0)
[2021-06-14] MEDS: ATORVASTATIN 40 MG TAB PO SCH (22:41)
[2021-06-15 06:54] LABS: African American GFR (CKD) 32 (>60 ml/min/1.73 sqM); Anion Gap 9 mmol/L; Blood Urea Nitrogen 29 mg/dL (9-20); Calcium 8.1 mg/dL (8.4-10.2); Carbon Dioxide 31 mmol/L (22-30); Chloride 90 mmol/L (98-107); Glucose 96 mg/dL (74-99); Magnesium 1.5 mg/dL (1.6-2.3); Non-African American GFR(CKD) 28 (>60 ml/min/1.73 sqM); Potassium 2.9 mmol/L (3.5-5.1); Sodium 130 mmol/L (137-145)
[2021-06-15 07:45] LABS: INR 1.1 (<1.2); Partial Thromboplastin Time 65.7 sec (22.0-30.0); Prothrombin Time 11.7 sec (9.0-12.0)
[2021-06-15] MEDS: MEXILETINE 150 MG CAP PO SCH ×2 (09:01→21:03)
[2021-06-15] MEDS: AMIODARONE 200 MG TAB PO SCH ×3 (09:01→21:04)
[2021-06-15] MEDS: FERROUS SULFATE 325 MG TAB PO SCH ×2 (09:02→21:04)
[2021-06-15] MEDS: FUROSEMIDE 10 MG/ML 10 ML VIAL IV SCH (09:02)
[2021-06-15] MEDS: SODIUM BICARBONATE TAB 650 MG TAB PO SCH ×3 (09:02→21:04)
[2021-06-15] MEDS: ASPIRIN 81 MG PO SCH (09:02)
[2021-06-15] MEDS: FINASTERIDE 5 MG TAB PO SCH (09:02)
[2021-06-15] MEDS: METOPROLOL TARTRATE 12.5 MG TAB PO SCH ×2 (09:02→21:03)
[2021-06-15] MEDS: CLOPIDOGREL 75 MG TAB PO SCH (09:03)
[2021-06-15] MEDS: TAMSULOSIN 0.4 MG CAP.ER.24H PO SCH (09:03)
[2021-06-15 09:31] LABS: Basophils # (A) 0.04 X 10*3/uL (0.00-0.10); Basophils % (A) 0.4 %; Eosinophils # (A) 0.09 X 10*3/uL (0.04-0.35); Eosinophils % (A) 0.8 %; HCT 28.9 % (39.6-50.0); HGB 9.4 g/dL (13.0-17.0); Lymphocytes # (A) 1.15 X 10*3/uL (0.90-5.00); Lymphocytes % (A) 10.3 %; MCH 28.9 pg (27.0-32.0); MCHC 32.5 g/dL (32.0-37.0); MCV 88.9 fL (80.0-97.0); Mean Platelet Volume 10.5 fL (9.5-12.2); Monocytes # (A) 0.97 X 10*3/uL (0.20-1.00); Monocytes % (A) 8.7 %; Neutrophils % (A) 79.2 %; Platelet Count 301 X 10*3/uL (140-440); RBC 3.25 X 10*6/uL (4.40-5.60); WBC 11.12 X 10*3/uL (4.50-10.00)
--- NOTE | 2021-06-15 10:40 | P.PN ---
Subjective Progress Note Date: 06/15/21 HISTORY OF PRESENT ILLNESS: This is an 80-year-old gentleman who sees Dr. Rogers regularly with coronary artery disease and prior stenting of the RCA and LAD as well as history of ventricular tachycardia status post AICD and also chronic kidney disease as well as hypertension and dyslipidemia. He presented to the emergency department mainly because of dysuria. He is known to have prostate disease. That has been managed by the neurology service. For the last few days he has been experiencing increasing in the dysuria and he's unable to urinate. Beside that he has been noticing increasing in the lower extremities edema. He also was having pain in the left leg. No increasing shortness of breath and no symptoms of chest pain or chest discomfort nor dizziness or lightheadedness or any feeling of heart racing or fluttering or presyncope or syncope. No symptoms of fever or chills. In the emergency department he was tested positive for COVID and he was diagnosed with deep venous thrombosis of the left leg and subsequently he was started on heparin IV. Troponin was mildly elevated. The EKG showed what it seems to be questionable underlying atrial fibrillation with wide complex rhythm. Differential diagnosis could be slow ventricular tachycardia. The chest x-ray showed bilateral infiltrates. The patient on examination does have bilateral lower extremities edema. Currently he is on Lasix IV. NT proBNP is about 5000. WBCs 14,000. Creatinine is 2.49 with a baseline creatinine of 4.88. 06/15/2021 Patient had echocardiogram completed revealing ejection fraction 40-45%. Mild aortic stenosis. Ijll-sc-htrwzgls mitral regurgitation. Jfox-wl-opsfytgv tricuspid regurgitation. Fjfa-ip-figpdbzt pulmonary hypertension. The patient remains on IV Lasix. Per nursing, the patient reports significant improvement in his lower extremity edema. He denies any chest pain or pressure. Denies shortness of breath. PHYSICAL EXAM: Thorough physical exam not completed secondary to limited evaluation/examination due to Covid19 ASSESSMENT: Acute Covid 19 Dysuria secondary to urinary obstruction Fluid retention probably secondary to above Acute deep vein thrombosis Possible pneumonia Coronary artery disease History of V. tach status post AICD PLAN: Discontinue IV lasix Begin oral lasix 40mg BID Continue additional cardiac medications Treatment of DVT per medicine We will follow on an as needed basis. Please call with questions or concerns Nurse practitioner note has been reviewed by physician. Signing provider agrees with the documented findings, assessment, and plan of care. Objective - Vital Signs Vital signs: Vital Signs Temp 98.4 F 06/15/21 08:00 Pulse 86 06/15/21 08:00 Resp 17 06/15/21 08:00 BP 95/65 06/15/21 08:00 Pulse Ox 97 06/15/21 08:00 Intake & Output 06/14/21 06/15/21 06/15/21 18:59 06:59 18:59 Intake Total 250.000 Output Total 4200 Balance 250.000 -4200 Weight 83.915 kg 74.9 kg Intake: Intake, IV Titration 250.000 Amount Heparin Sod,Pork in 0.45% 250.000 NaCl 25,000 unit In 0.45 % NaCl 1 250ml.bag @ 18 UNITS/KG/HR 15.105 mls/hr IV .[id number] [facility] Rx#: [id number] Output: Urine 4200 Other: Voiding Method Indwelling Catheter Indwelling Catheter - Labs CBC & Chem 7: 06/15/21 05:43 06/15/21 05:43 Labs: Abnormal Lab Results - Last 24 Hours (Table) 06/14/21 06/14/21 06/15/21 Range/Units 04:39 04:39 05:43 WBC 12.54 H 11.12 H (4.50-10.00) X 10*3/uL RBC 3.36 L 3.25 L (4.40-5.60) X 10*6/uL Hgb 9.5 L 9.4 L (13.0-17.0) g/dL Hct 30.4 L 28.9 L (39.6-50.0) % MCHC 31.3 L (32.0-37.0) g/dL RDW 16.3 H 16.0 H (11.5-14.5) % Immature Gran # 0.09 H 0.07 H (0.00-0.04) X 10*3/uL Neutrophils # 10.06 H 8.80 H (1.80-7.70) X 10*3/uL APTT (22.0-30.0) sec D-Dimer (<0.60) mg/L FEU Sodium (137-145) mmol/L Potassium 3.0 L (3.5-5.5) mmol/L Chloride (98-107) mmol/L Carbon Dioxide (22-30) mmol/L Anion Gap 12.80 H (4.00-12.00) mmol/L BUN (9-20) mg/dL Creatinine 2.3 H (0.6-1.5) mg/dL Est GFR (CKD-EPI)AfAm 30.0 L (60.0-200.0) Est GFR (CKD-EPI)NonAf 25.9 L (60.0-200.0) BUN/Creatinine Ratio 10.87 L (12.00-20.00) Ratio Calcium 8.1 L (8.7-10.3) mg/dL Magnesium (1.6-2.3) mg/dL 06/15/21 06/15/21 Range/Units 05:43 05:59 WBC (4.50-10.00) X 10*3/uL RBC (4.40-5.60) X 10*6/uL Hgb (13.0-17.0) g/dL Hct (39.6-50.0) % MCHC (32.0-37.0) g/dL RDW (11.5-14.5) % Immature Gran # (0.00-0.04) X 10*3/uL Neutrophils # (1.80-7.70) X 10*3/uL APTT 65.7 H (22.0-30.0) sec D-Dimer 1.34 H (<0.60) mg/L FEU Sodium 130 L (137-145) mmol/L Potassium 2.9 L (3.5-5.5) mmol/L Chloride 90 L (98-107) mmol/L Carbon Dioxide 31 H (22-30) mmol/L Anion Gap (4.00-12.00) mmol/L BUN 29 H (9-20) mg/dL Creatinine 2.18 H (0.6-1.5) mg/dL Est GFR (CKD-EPI)AfAm (60.0-200.0) Est GFR (CKD-EPI)NonAf (60.0-200.0) BUN/Creatinine Ratio (12.00-20.00) Ratio Calcium 8.1 L (8.7-10.3) mg/dL Magnesium 1.5 L (1.6-2.3) mg/dL Microbiology - Last 24 Hours (Table) 06/13/21 01:24 Urine Culture - Preliminary Urine,Voided Gram Neg Bacilli
--- NOTE | 2021-06-15 16:14 | P.PN ---
<Ashwin Napoles - Last Filed: 06/15/21 17:16> Subjective Progress Note Date: 06/15/21 Hospital course: Patient is a very pleasant 80-year-old male with a past medical history of CAD with stents on Plavix, hypertension, hyperlipidemia, V. tach on amiodarone and mexiletine, chronic kidney disease stage III, and BPH. Pt presented to the hospital on 06/13/21 with a chief complaint of left lower extremity and groin pain. patient is admitted under our services with a left lower extremity DVT, acute systolic congestive heart failure exacerbation with an EF of 40-45%, urinary retention with complicated UTI, orchitis, acute kidney injury, and Covid 19 positive PCR in an asymptomatic vaccinated patient.cardiology and urology consulted. patient with significant urinary retention requiring Meza catheter placement. Venous Doppler left lower extremity positive for DVT. Patient was started on heparin infusion. Chest x-ray showing new bilateral lower lobe pneumonia and atelectasis with concerns of heart failure. EKG showing atrial fibrillation with aberrancy with RVR 157 bpm. urinalysis positive for infection. Vision started on Rocephin 2 g daily. Urine culture positive for Klebsiella pneumoniae. Scrotal ultrasound revealing bilateral epididymitis and a small to moderate sized scrotal fluid collection or hydrocele with bilateral testicles showing symmetric heterogeneity and increased blood flow raising concern for bilateral orchitis. echocardiogram revealing mild to moderately impaired EF 40- 45% with mild to moderate pulmonary hypertension, a moderate to severely enl arged right ventricle and a severely dilated left atrium, mild to moderate mitral regurgitation, and mild to moderate tricuspid regurgitation. Physical exam: Patient seen and fully evaluated at the bedside. He reports improvement in the pain of his right leg as well as significant improvement of the swelling in his bilateral lower extremities. Patient does report he continues to have some testicular discomfort in his groin. Upon assessment patient with erythema and edema to left testicle. Very tender upon palpation. Patient denies having any chest pain, shortness of breath, cough, or congestion. Vital signs reviewed and stable. General: Nontoxic, no distress and appears stated age. Derm: Skin warm and dry, normal coloration for ethnicity. Head: Atraumatic, normocephalic and symmetric. Eyes: EOMs intact, no lid lag, and anicteric sclera Mouth: no lip lesions, mucus membranes moist Cardiovascular: regular rate and rhythm with normal S1S2, no murmur, positive posterior tibial pulses bilaterally, and cap refill < 2 seconds. Lungs: Respirations even, regular, and unlabored on room air. Lungs CTA bilaterally, no rhonchi, no rales, no wheezing, and no accessory muscle usage. GI/: soft, nontender to palpation, no guarding, no appreciable organomegaly, colostomy in place. Meza catheter in place. Patient with moderate erythema and swelling to left testicle, reported tenderness upon palpation. Ext: ROM intact. No gross muscle atrophy, 1+ pitting bilateral lower extremity edema, no contractures Neuro: Speech clear, face symmetrical and CN II-XII grossly intact with no noted focal neuro deficits Psych: Alert and oriented to person, place, time, and situation. Appropriate and pleasant affect. Assessment and Plan of Care: Left lower extremity DVT Patient on heparin infusion, pharmacy to dose.we will change director to oral anticoagulant tomorrow a.m with Eliquis. Wide-complex tachycardia with irregularities differentials include Atrial fibrillation with aberrancy with RVR (likely) vs Ventricular Tachycardia (less likely) Acute systolic CHF exacerbation History of ventricular tachycardia -EKG showing atrial fibrillation with aberrancy with RVR 157 bpm. -Continue daily medication regimen with amiodarone and mexiletine Patient on heparin infusion, pharmacy to dose.we will change director to oral anticoagulant tomorrow a.m. Prescription sent to pharmacy, [facility], for pricing. Cardiology following. Echocardiogram revealing EF 40-45% with mild aortic stenosis, mild to moderate mitral regurgitation, [id number] tricuspid regurgitation, and mild to moderate pulmonary hypertension. -proBNP 5020. -Patient transition to oral Lasix this morning. He will continue with Lasix 40 mg by mouth twice daily. -continue daily medication regimen with metoprolol, amiodarone Urinary retention Complicated UTI Orchitis and epididymitis -Continue IV antibiotic: Rocephin 2 g daily. -Urine culture positive for Klebsiella pneumoniae -Scrotal ultrasound revealing bilateral epididymitis and a small to moderate sized scrotal fluid collection or hydrocele with bilateral testicles showing symmetric heterogeneity and increased blood flow raising concern for bilateral orchitis. -Urology following, appreciate further recommendations -Continue Meza catheter care. Hypomagnesemia Magnesium 1.5, replaced. We will continue to monitor with repeat a.m. labs. Hypokalemia Potassium 2.9, replaced We will continue to monitor with repeat a.m. labs. Acute kidney injury on stage III chronic kidney disease, improving COVID-19 positive PCR and asymptomatic vaccinated patient CODE STATUS: Full code DVT prophylaxis: Heparin Discussed with: Pt and RN Anticipated discharge date: 1-[address]: home A total of 45 minutes was spent on the care of this complex patient more than 50% of the time was spent in counseling and care coordination. Objective - Vital Signs Vital signs: Vital Signs Temp 98.4 F 06/15/21 08:00 Pulse 86 06/15/21 08:00 Resp 17 06/15/21 08:00 BP 95/65 06/15/21 08:00 Pulse Ox 97 06/15/21 08:00 Intake & Output 06/14/21 06/15/21 06/15/21 18:59 06:59 18:59 Intake Total 250.000 Output Total 4200 Balance 250.000 -4200 Weight 83.915 kg 74.9 kg Intake: Intake, IV Titration 250.000 Amount Heparin Sod,Pork in 0.45% 250.000 NaCl 25,000 unit In 0.45 % NaCl 1 250ml.bag @ 18 UNITS/KG/HR 15.105 mls/hr IV .[id number] [facility] Rx#: [id number] Output: Urine 4200 Other: Voiding Method Indwelling Catheter - Labs CBC & Chem 7: 06/15/21 05:43 06/15/21 05:43 Labs: Abnormal Lab Results - Last 24 Hours (Table) 06/14/21 06/14/21 06/15/21 Range/Units 04:39 04:39 05:43 WBC 12.54 H (4.50-10.00) X 10*3/uL RBC 3.36 L (4.40-5.60) X 10*6/uL Hgb 9.5 L (13.0-17.0) g/dL Hct 30.4 L (39.6-50.0) % MCHC 31.3 L (32.0-37.0) g/dL RDW 16.3 H (11.5-14.5) % Immature Gran # 0.09 H (0.00-0.04) X 10*3/uL Neutrophils # 10.06 H (1.80-7.70) X 10*3/uL APTT (22.0-30.0) sec D-Dimer (<0.60) mg/L FEU Sodium 130 L (137-145) mmol/L Potassium 3.0 L 2.9 L (3.5-5.5) mmol/L Chloride 90 L (98-107) mmol/L Carbon Dioxide 31 H (22-30) mmol/L Anion Gap 12.80 H (4.00-12.00) mmol/L BUN 29 H (9-20) mg/dL Creatinine 2.3 H 2.18 H (0.6-1.5) mg/dL Est GFR (CKD-EPI)AfAm 30.0 L (60.0-200.0) Est GFR (CKD-EPI)NonAf 25.9 L (60.0-200.0) BUN/Creatinine Ratio 10.87 L (12.00-20.00) Ratio Calcium 8.1 L 8.1 L (8.7-10.3) mg/dL Magnesium 1.5 L (1.6-2.3) mg/dL 06/15/21 Range/Units 05:59 WBC (4.50-10.00) X 10*3/uL RBC (4.40-5.60) X 10*6/uL Hgb (13.0-17.0) g/dL Hct (39.6-50.0) % MCHC (32.0-37.0) g/dL RDW (11.5-14.5) % Immature Gran # (0.00-0.04) X 10*3/uL Neutrophils # (1.80-7.70) X 10*3/uL APTT 65.7 H (22.0-30.0) sec D-Dimer 1.34 H (<0.60) mg/L FEU Sodium (137-145) mmol/L Potassium (3.5-5.5) mmol/L Chloride (98-107) mmol/L Carbon Dioxide (22-30) mmol/L Anion Gap (4.00-12.00) mmol/L BUN (9-20) mg/dL Creatinine (0.6-1.5) mg/dL Est GFR (CKD-EPI)AfAm (60.0-200.0) Est GFR (CKD-EPI)NonAf (60.0-200.0) BUN/Creatinine Ratio (12.00-20.00) Ratio Calcium (8.7-10.3) mg/dL Magnesium (1.6-2.3) mg/dL Microbiology - Last 24 Hours (Table) 06/13/21 01:24 Urine Culture - Preliminary Urine,Voided Gram Neg Bacilli <JayeAparna A - Last Filed: 06/15/21 20:30> Objective - Vital Signs Vital signs: Vital Signs Temp 98.1 F 06/15/21 13:33 Pulse 65 06/15/21 13:33 Resp 16 06/15/21 13:33 BP 98/49 06/15/21 13:33 Pulse Ox 95 06/15/21 13:33 Intake & Output 06/15/21 06/15/21 06/16/21 06:59 18:59 06:59 Output Total 4200 950 Balance -4200 -950 Weight 74.9 kg Output: Urine 4200 950 Other: Voiding Method Indwelling Catheter Indwelling Catheter Indwelling Catheter - Labs CBC & Chem 7: 06/15/21 05:43 06/15/21 05:43 Labs: Abnormal Lab Results - Last 24 Hours (Table) 06/15/21 06/15/21 06/15/21 Range/Units 05:43 05:43 05:59 WBC 11.12 H (4.50-10.00) X 10*3/uL RBC 3.25 L (4.40-5.60) X 10*6/uL Hgb 9.4 L (13.0-17.0) g/dL Hct 28.9 L (39.6-50.0) % RDW 16.0 H (11.5-14.5) % Immature Gran # 0.07 H (0.00-0.04) X 10*3/uL Neutrophils # 8.80 H (1.80-7.70) X 10*3/uL APTT 65.7 H (22.0-30.0) sec D-Dimer 1.34 H (<0.60) mg/L FEU Sodium 130 L (137-145) mmol/L Potassium 2.9 L (3.5-5.1) mmol/L Chloride 90 L (98-107) mmol/L Carbon Dioxide 31 H (22-30) mmol/L BUN 29 H (9-20) mg/dL Creatinine 2.18 H (0.66-1.25) mg/dL Calcium 8.1 L (8.4-10.2) mg/dL Magnesium 1.5 L (1.6-2.3) mg/dL Microbiology - Last 24 Hours (Table) 06/13/21 01:24 Urine Culture - Final Urine,Voided Klebsiella pneumoniae Assessment and Plan Assessment: Ashwin Napoles NP rendered care for this patient independently, reviewed the findings and plan as documented in the note above. I did not physically speak with or examine the patient on this date. DVT-likely Eliquis on discharge Klebsiella UTI with epididymal orchitis-plan on Keflex for a total of 10 days on discharge. 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
[2021-06-15] MEDS: FUROSEMIDE 40 MG TAB PO SCH (17:13)
[2021-06-15] MEDS ORDERED: POTASSIUM CHLORIDE ER 20 MEQ TAB.ER PO STA (17:22)
[2021-06-15] MEDS ORDERED: POTASSIUM CHLORIDE 20 MEQ in WATER FOR INJECTION 1 100ML.BAG IVPB STA (17:22)
[2021-06-15] MEDS: MAGNESIUM SULFATE-D5W PMX 1 GM in DEXTROSE/WATER 1 100ML.BAG IVPB SCH ×2 (21:04→22:01)
[2021-06-15] MEDS: ATORVASTATIN 40 MG TAB PO SCH (21:04)
[2021-06-15] MEDS: HEPARIN SOD,PORK IN 0.45% NACL 25,000 UNIT in 0.45% NACL 1 250ML.BAG IV SCH ×2 (21:06→22:26)
[2021-06-16] MEDS: MAGNESIUM SULFATE-D5W PMX 1 GM in DEXTROSE/WATER 1 100ML.BAG IVPB SCH (02:31)
[2021-06-16] MEDS: HEPARIN SOD,PORK IN 0.45% NACL 25,000 UNIT in 0.45% NACL 1 250ML.BAG IV SCH (03:33)
[2021-06-16 06:46] LABS: African American GFR (CKD) 29 (>60 ml/min/1.73 sqM); Anion Gap 7 mmol/L; Blood Urea Nitrogen 31 mg/dL (9-20); Calcium 8.2 mg/dL (8.4-10.2); Carbon Dioxide 30 mmol/L (22-30); Chloride 93 mmol/L (98-107); Glucose 98 mg/dL (74-99); Magnesium 2.4 mg/dL (1.6-2.3); Non-African American GFR(CKD) 25 (>60 ml/min/1.73 sqM); Potassium 3.4 mmol/L (3.5-5.1); Sodium 130 mmol/L (137-145)
[2021-06-16] MEDS: CHOLECALCIFEROL 25 MCG (1000 IU) TABLET PO SCH (08:00)
[2021-06-16] MEDS: METOPROLOL TARTRATE 12.5 MG TAB PO SCH ×2 (08:00→20:17)
[2021-06-16] MEDS: SODIUM BICARBONATE TAB 650 MG TAB PO SCH ×3 (08:00→20:16)
[2021-06-16] MEDS: ASPIRIN 81 MG PO SCH (08:00)
[2021-06-16] MEDS: FERROUS SULFATE 325 MG TAB PO SCH ×2 (08:00→20:17)
[2021-06-16] MEDS: AMIODARONE 200 MG TAB PO SCH ×3 (08:00→20:17)
[2021-06-16] MEDS: FUROSEMIDE 40 MG TAB PO SCH ×2 (08:00→17:22)
[2021-06-16] MEDS: MEXILETINE 150 MG CAP PO SCH ×2 (08:00→20:17)
[2021-06-16] MEDS: TAMSULOSIN 0.4 MG CAP.ER.24H PO SCH (08:00)
[2021-06-16] MEDS: CLOPIDOGREL 75 MG TAB PO SCH (08:01)
[2021-06-16] MEDS: FINASTERIDE 5 MG TAB PO SCH (08:01)
[2021-06-16 09:32] LABS: HCT 28.3 % (39.6-50.0); HGB 9.1 g/dL (13.0-17.0); MCH 28.4 pg (27.0-32.0); MCHC 32.2 g/dL (32.0-37.0); MCV 88.4 fL (80.0-97.0); Mean Platelet Volume 10.4 fL (9.5-12.2); Platelet Count 301 X 10*3/uL (140-440); RDW 15.7 % (11.5-14.5); WBC 10.53 X 10*3/uL (4.50-10.00)
[2021-06-16] MEDS ORDERED: POTASSIUM CHLORIDE ER 20 MEQ TAB.ER PO STA (10:35)
--- NOTE | 2021-06-16 10:58 | P.PN ---
<Ashwin Napoles - Last Filed: 06/16/21 17:46> Subjective Progress Note Date: 06/16/21 Hospital course: Patient is a very pleasant 80-year-old male with a past medical history of CAD with stents on Plavix, hypertension, hyperlipidemia, V. tach on amiodarone and mexiletine, chronic kidney disease stage III, and BPH. Pt presented to the hospital on 06/13/21 with a chief complaint of left lower extremity and groin pain. patient is admitted under our services with a left lower extremity DVT, acute systolic congestive heart failure exacerbation with an EF of 40-45%, urinary retention with complicated UTI, orchitis, acute kidney injury, and Covid 19 positive PCR in an asymptomatic vaccinated patient.cardiology and urology consulted. patient with significant urinary retention requiring Meza catheter placement. Venous Doppler left lower extremity positive for DVT. Patient was started on heparin infusion. Chest x-ray showing new bilateral lower lobe pneumonia and atelectasis with concerns of heart failure. EKG showing atrial fibrillation with aberrancy with RVR 157 bpm. urinalysis positive for infection. Vision started on Rocephin 2 g daily. Urine culture positive for Klebsiella pneumoniae. Scrotal ultrasound revealing bilateral epididymitis and a small to moderate sized scrotal fluid collection or hydrocele with bilateral testicles showing symmetric heterogeneity and increased blood flow raising concern for bilateral orchitis. echocardiogram revealing mild to moderately impaired EF 40- 45% with mild to moderate pulmonary hypertension, a moderate to severely enl arged right ventricle and a severely dilated left atrium, mild to moderate mitral regurgitation, and mild to moderate tricuspid regurgitation. Physical exam: Patient seen and fully evaluated at the bedside. Patient reports overall feeling much better but states he does feel significantly more weak. Patient having difficulties ambulating from bed to chair. Orders place for physical and occupational therapy to assess. Patient also reports continued slight discomfort in his groin but significantly improved. He continues to deny having any chest pain, shortness of breath, cough, or congestion. Patient changed over to oral anticoagulation with Eliquis. Vital signs reviewed and stable. General: Nontoxic, no distress and appears stated age. Derm: Skin warm and dry, normal coloration for ethnicity. Head: Atraumatic, normocephalic and symmetric. Eyes: EOMs intact, no lid lag, and anicteric sclera Mouth: no lip lesions, mucus membranes moist Cardiovascular: regular rate and rhythm with normal S1S2, no murmur, positive posterior tibial pulses bilaterally, and cap refill < 2 seconds. Lungs: Respirations even, regular, and unlabored on room air. Lungs CTA bilaterally, no rhonchi, no rales, no wheezing, and no accessory muscle usage. GI/: soft, nontender to palpation, no guarding, no appreciable organomegaly, colostomy in place. Meza catheter in place. Moderate erythema and swelling to left testicle with reports of tenderness upon palpation, erythema and swelling improved when compared to yesterday's examination. Ext: ROM intact. No gross muscle atrophy, 1+ pitting bilateral lower extremity edema, no contractures Neuro: Speech clear, face symmetrical and CN II-XII grossly intact with no noted focal neuro deficits Psych: Alert and oriented to person, place, time, and situation. Appropriate and pleasant affect. Assessment and Plan of Care: Left lower extremity DVT Venous Doppler left lower extremity positive for DVT. Heparin discontinued and patient placed on oral anticoagulation with Eliquis. Wide-complex tachycardia with irregularities differentials include Atrial fibrillation with aberrancy with RVR (likely) vs Ventricular Tachycardia (less likely) Acute systolic CHF exacerbation History of ventricular tachycardia -EKG showing atrial fibrillation with aberrancy with RVR 157 bpm. -Continue daily medication regimen with amiodarone and mexiletine Patient on heparin infusion, pharmacy to dose.we will pattern changer to oral anticoagulant tomorrow a.m. Prescription sent to pharmacy, [facility], for pricing. Cardiology following. Echocardiogram revealing EF 40-45% with mild aortic stenosis, mild to moderate mitral regurgitation, [id number] tricuspid regurgitation, and mild to moderate pulmonary hypertension. -proBNP 5020. -Continue with Lasix 40 mg by mouth twice daily. -Continue daily medication regimen with metoprolol, amiodarone Urinary retention Complicated UTI Orchitis and epididymitis -Continue IV antibiotic: Rocephin 2 g daily. -Urine culture positive for Klebsiella pneumoniae -Scrotal ultrasound revealing bilateral epididymitis and a small to moderate sized scrotal fluid collection or hydrocele with bilateral testicles showing sy mmetric heterogeneity and increased blood flow raising concern for bilateral orchitis. -Urology following, appreciate further recommendations -Continue Meza catheter care. Generalized Weakness PT/OT consultation. Fall precautions Safe and supportive care distance as needed. Hypomagnesemia, resolved We will continue to monitor with repeat a.m. labs. Hypokalemia Potassium 3.4, replaced We will continue to monitor with repeat a.m. labs. Acute kidney injury on stage III chronic kidney disease We will continue to monitor with repeat a.m. labs. Caution with nephrotoxic medications Anemia secondary to Chronic Kidney Disease, stable We will continue to monitor with repeat a.m. labs. COVID-19 positive PCR and asymptomatic vaccinated patient CODE STATUS: Full code DVT prophylaxis: Heparin Discussed with: Pt and RN Anticipated discharge date: 1-[address]: home with possible home care pending PT/OT evaluation A total of 45 minutes was spent on the care of this complex patient more than 50% of the time was spent in counseling and care coordination. Objective - Vital Signs Vital signs: Vital Signs Temp 97.7 F 06/16/21 08:00 Pulse 59 L 06/16/21 08:00 Resp 16 06/16/21 08:00 BP 124/64 06/16/21 08:00 Pulse Ox 96 06/16/21 08:00 Intake & Output 06/15/21 06/16/21 06/16/21 18:59 06:59 18:59 Intake Total 250 740 Output Total 950 1000 Balance -700 -260 Weight 71.5 kg Intake: Intake, IV Titration 250 500 Amount Heparin Sod,Pork in 0.45% 250 NaCl 25,000 unit In 0.45 % NaCl 1 250ml.bag @ 18 UNITS/KG/HR 15.105 mls/hr IV .[id number] [facility] Rx#: [id number] Magnesium Sulfate-D5w Pmx 400 1 gm In Dextrose/Water 1 100ml.bag @ 100 mls/hr IVPB Q1H [facility] Rx#: [id number] Potassium Chloride 20 meq 100 In Water For Injection 1 100ml.bag @ 100 mls/hr IVPB ONCE [facility] Rx#: [id number] Oral 240 Output: Urine 950 1000 Coude 1000 Other: Voiding Method Indwelling Catheter Indwelling Catheter Indwelling Catheter - Labs CBC & Chem 7: 06/16/21 05:45 06/16/21 05:45 Labs: Abnormal Lab Results - Last 24 Hours (Table) 06/16/21 06/16/21 06/16/21 Range/Units 05:45 05:45 05:45 WBC 10.53 H (4.50-10.00) X 10*3/uL RBC 3.20 L (4.40-5.60) X 10*6/uL Hgb 9.1 L (13.0-17.0) g/dL Hct 28.3 L (39.6-50.0) % RDW 15.7 H (11.5-14.5) % APTT 59.7 H (22.0-30.0) sec Sodium 130 L (137-145) mmol/L Potassium 3.4 L (3.5-5.1) mmol/L Chloride 93 L (98-107) mmol/L BUN 31 H (9-20) mg/dL Creatinine 2.39 H (0.66-1.25) mg/dL Calcium 8.2 L (8.4-10.2) mg/dL Magnesium 2.4 H (1.6-2.3) mg/dL Microbiology - Last 24 Hours (Table) 06/13/21 01:24 Urine Culture - Final Urine,Voided Klebsiella pneumoniae <Aparna Cee - Last Filed: 06/16/21 21:09> Subjective Ashwin Napoles NP rendered care for this patient independently, reviewed the findings and plan as documented in the note above. I did not physically speak with or examine the patient on this date. Objective - Vital Signs Vital signs: Vital Signs Temp 97.9 F 06/16/21 14:00 Pulse 61 06/16/21 14:00 Resp 17 06/16/21 14:00 BP 102/55 06/16/21 14:00 Pulse Ox 97 06/16/21 14:00 Intake & Output 06/16/21 06/16/21 06/17/21 06:59 18:59 06:59 Intake Total 740 Output Total 1000 900 Balance -260 -900 Weight 71.5 kg Intake: Intake, IV Titration 500 Amount Magnesium Sulfate-D5w Pmx 400 1 gm In Dextrose/Water 1 100ml.bag @ 100 mls/hr IVPB Q1H [facility] Rx#: [id number] Potassium Chloride 20 meq 100 In Water For Injection 1 100ml.bag @ 100 mls/hr IVPB ONCE [facility] Rx#: [id number] Oral 240 Output: Urine 1000 900 Coude 1000 Other: Voiding Method Indwelling Catheter Indwelling Catheter - Labs CBC & Chem 7: 06/16/21 05:45 06/16/21 05:45 Labs: Abnormal Lab Results - Last 24 Hours (Table) 06/16/21 06/16/21 06/16/21 Range/Units 05:45 05:45 05:45 WBC 10.53 H (4.50-10.00) X 10*3/uL RBC 3.20 L (4.40-5.60) X 10*6/uL Hgb 9.1 L (13.0-17.0) g/dL Hct 28.3 L (39.6-50.0) % RDW 15.7 H (11.5-14.5) % APTT 59.7 H (22.0-30.0) sec Sodium 130 L (137-145) mmol/L Potassium 3.4 L (3.5-5.1) mmol/L Chloride 93 L (98-107) mmol/L BUN 31 H (9-20) mg/dL Creatinine 2.39 H (0.66-1.25) mg/dL Calcium 8.2 L (8.4-10.2) mg/dL Magnesium 2.4 H (1.6-2.3) mg/dL
[2021-06-16] MEDS: APIXABAN 5 MG TAB PO SCH (20:17)
[2021-06-16] MEDS: ATORVASTATIN 40 MG TAB PO SCH (20:17)
[2021-06-17 02:36] VITALS: RESP 18
[2021-06-17 06:59] LABS: African American GFR (CKD) 31 (>60 ml/min/1.73 sqM); Anion Gap 10 mmol/L; Blood Urea Nitrogen 30 mg/dL (9-20); Calcium 8.5 mg/dL (8.4-10.2); Carbon Dioxide 28 mmol/L (22-30); Chloride 93 mmol/L (98-107); Glucose 93 mg/dL (74-99); Magnesium 2.1 mg/dL (1.6-2.3); Non-African American GFR(CKD) 27 (>60 ml/min/1.73 sqM); Potassium 3.9 mmol/L (3.5-5.1); Sodium 131 mmol/L (137-145)
[2021-06-17 08:11] VITALS: BP 119/58; PULSE 65; TEMP 98.4
[2021-06-17] MEDS: CLOPIDOGREL 75 MG TAB PO SCH (08:47)
[2021-06-17] MEDS: CHOLECALCIFEROL 25 MCG (1000 IU) TABLET PO SCH (08:48)
[2021-06-17] MEDS: APIXABAN 5 MG TAB PO SCH (08:48)
[2021-06-17] MEDS: METOPROLOL TARTRATE 12.5 MG TAB PO SCH (08:48)
[2021-06-17] MEDS: AMIODARONE 200 MG TAB PO SCH (08:49)
[2021-06-17] MEDS: MEXILETINE 150 MG CAP PO SCH (08:49)
[2021-06-17] MEDS: SODIUM BICARBONATE TAB 650 MG TAB PO SCH (08:49)
[2021-06-17] MEDS: FERROUS SULFATE 325 MG TAB PO SCH (08:49)
[2021-06-17] MEDS: ASPIRIN 81 MG PO SCH (08:50)
[2021-06-17] MEDS: FUROSEMIDE 40 MG TAB PO SCH (08:50)
[2021-06-17] MEDS: FINASTERIDE 5 MG TAB PO SCH (08:50)
[2021-06-17] MEDS: TAMSULOSIN 0.4 MG CAP.ER.24H PO SCH (08:50)
[2021-06-17 09:04] LABS: HCT 28.7 % (39.6-50.0); HGB 9.1 g/dL (13.0-17.0); MCH 28.2 pg (27.0-32.0); MCHC 31.7 g/dL (32.0-37.0); MCV 88.9 fL (80.0-97.0); Mean Platelet Volume 10.5 fL (9.5-12.2); Platelet Count 330 X 10*3/uL (140-440); RBC 3.23 X 10*6/uL (4.40-5.60); RDW 15.9 % (11.5-14.5)
--- NOTE | 2021-06-17 14:20 | P.DS ---
<Ashwin Napoles - Last Filed: 06/17/21 14:08> Providers Expected date of discharge: 06/17/21 Hospital Course: Discharge Diagnosis: Left lower extremity DVT Wide-complex tachycardia with irregularities differentials include Atrial fibrillation with aberrancy with RVR (likely) vs Ventricular Tachycardia (less likely) Acute systolic CHF exacerbation History of ventricular tachycardia Urinary retention Complicated UTI positive for Klebsiella pneumoniae Orchitis Epididymitis Hypomagnesemia, resolved Hypokalemia Acute kidney injury on stage III chronic kidney disease Anemia secondary to Chronic Kidney Disease, stable COVID-19 positive PCR and asymptomatic vaccinated patient Hospital Course: Patient is a very pleasant 80-year-old male with a past medical history of CAD with stents on Plavix, hypertension, hyperlipidemia, V. tach on amiodarone and mexiletine, chronic kidney disease stage III, and BPH. Pt presented to the hospital on 06/13/21 with a chief complaint of left lower extremity and groin pain. patient is admitted under our services with a left lower extremity DVT, acute systolic congestive heart failure exacerbation with an EF of 40-45%, urinary retention with complicated UTI requiring Fuentes placement, orchitis, acute kidney injury, and Covid 19 positive PCR in an asymptomatic vaccinated patient.cardiology and urology consulted. patient with significant urinary retention requiring Fuentes catheter placement. Venous Doppler left lower extremity positive for DVT. Patient was started on heparin infusion. Chest x-ray showing new bilateral lower lobe pneumonia and atelectasis with concerns of heart failure. EKG showing atrial fibrillation with aberrancy with RVR 157 bpm. urinalysis positive for infection. Patient started on Rocephin 2 g daily. Urine culture positive for Klebsiella pneumoniae. Scrotal ultrasound revealing bilateral epididymitis and a small to moderate sized scrotal fluid collection or hydrocele with bilateral testicles showing symmetric heterogeneity and increased blood flow raising concern for bilateral orchitis. Echocardiogram revealing mild to moderately impaired EF 40-45% with mild to moderate pulmonary hypertension, a moderate to severely enlarged right ventricle and a severely dilated left atrium, mild to moderate mitral regurgitation, and mild to moderate tricuspid regurgitation. Patient started on Lasix. Patient's condition barb nued to improve throughout hospitalization. He was transitioned from heparin to oral anticoagulation with Eliquis. He did report feeling slightly weak once he began ambulating again in the room and he was evaluated by physical therapy. Patient is medically stable for discharge home at this time, discussed possible SNF placement for rehab to build endurance and strength, patient declined stating he would like to get home with his . Patient medically stable for discharge and is being discharged home with [facility] where he will continue to receive physical therapy. Patient to continue oral anticoagulation with Eliquis, Lasix 40 mg twice daily, and complete antibiotic cephalexin 500 mg every 6 hours for 5 more days to total 10 days of antibiotic therapy. Patient being discharged home with Fuentes in place and to follow up outpatient with PCP, cardiology, and urology. Physical exam: Vital signs reviewed and stable. General: Nontoxic, no distress and appears stated age. Derm: Skin warm and dry, normal coloration for ethnicity. Head: Atraumatic, normocephalic and symmetric. Eyes: EOMs intact, no lid lag, and anicteric sclera Mouth: no lip lesions, mucus membranes moist Cardiovascular: regular rate and rhythm with normal S1S2, no murmur, positive posterior tibial pulses bilaterally, and cap refill < 2 seconds. Lungs: Respirations even, regular, and unlabored on room air. Lungs CTA bilaterally, no rhonchi, no rales, no wheezing, and no accessory muscle usage. GI/: soft, nontender to palpation, no guarding, no appreciable organomegaly, colostomy in place. Fuentes catheter in place. Moderate erythema and swelling to left testicle with reports of tenderness upon palpation, erythema and swelling improved when compared to yesterday's examination. Ext: ROM intact. No gross muscle atrophy, 1+ pitting bilateral lower extremity edema, no contractures Neuro: Speech clear, face symmetrical and CN II-XII grossly intact with no noted focal neuro deficits Psych: Alert and oriented to person, place, time, and situation. Appropriate and pleasant affect. A total of 45 minutes of time were spent preparing this complex discharge summary. Assessment: Patient seen and evaluated by me independently. Patient was also seen by VIDAL, the original author of this note. I am in agreement with the subjective, physical exam, and assessment and plan as documented with the addition/changes of my exam and assessment below. Gen: awake, alert HEENT: normocephalic, atraumatic, good hearing acuity, moist mucous membranes Resp: good air exchange, breathing comfortably with no accessory muscle use CVS: good distal perfusion x 4, GI: soft, NTTP, ND : no SPT, no CVAT, fuentes catheter is present MSK: no pitting edema, no clubbing Neuro: non-focal, moving all extremities Psych: cooperative, euthymic mood Plan: Patient stable for discharge home Follow up with urology regarding catheter 10 days total of antibiotics for orchitis/epididymitis Will need lifelong Eliquis Patient Condition at Discharge: Stable Plan - Discharge Summary Discharge Rx Participant: No New Discharge Prescriptions: New Furosemide [Lasix] 40 mg PO BID@0900,1600 30 Days #60 tab Apixaban [Eliquis Starter Pack (for VTE)] 5 - 10 mg PO DIRECTED 30 Days #1 each Cephalexin [Keflex] 500 mg PO Q6HR 5 Days #20 cap Continue Atorvastatin [Lipitor] 40 mg PO DAILY@2099 Aspirin [Adult Low Dose Aspirin EC] 81 mg PO DAILY@0900 Finasteride [Proscar] 5 mg PO DAILY@09 Metoprolol Tartrate [Lopressor] 12.5 mg PO BID@09,2099 Tamsulosin [Flomax] 0.4 mg PO DAILY@0900 Mexiletine [Mexitil] 150 mg PO BID@0900,2099 Ferrous Sulfate [Iron (65 MG Elemental)] 325 mg PO BID@0900,2099 Cholecalciferol [Vitamin D3 (25 Mcg = 1000 Iu)] 25 mcg PO DAILY@0900 Amiodarone [Cordarone] 200 mg PO TID@0900,1600,2099 Sodium Bicarbonate Tab 650 mg PO TID@0900,1600,2099 Clopidogrel [Plavix] 75 mg PO DAILY@0900 Discharge Medication List Aspirin [Adult Low Dose Aspirin EC] 81 mg PO DAILY@89905/24/16 [History] Atorvastatin [Lipitor] 40 mg PO DAILY@209905/24/16 [History] Ferrous Sulfate [Iron (65 MG Elemental)] 325 mg PO BID@0900,209903/30/21 [History] Amiodarone [Cordarone] 200 mg PO TID@0900,1600,209906/13/21 [History] Cholecalciferol [Vitamin D3 (25 Mcg = 1000 Iu)] 25 mcg PO DAILY@00 06/13/21 [History] Clopidogrel [Plavix] 75 mg PO DAILY@89906/13/21 [History] Finasteride [Proscar] 5 mg PO DAILY@89906/13/21 [History] Metoprolol Tartrate [Lopressor] 12.5 mg PO BID@899,209906/13/21 [History] Mexiletine [Mexitil] 150 mg PO BID@899,209906/13/21 [History] Sodium Bicarbonate Tab 650 mg PO TID@0900,1600,209906/13/21 [History] Tamsulosin [Flomax] 0.4 mg PO DAILY@89906/13/21 [History] Apixaban [Eliquis Starter Pack (for VTE)] 5 - 10 mg PO DIRECTED 30 Days #1 each 06/15/21 [Rx] Cephalexin [Keflex] 500 mg PO Q6HR 5 Days #20 cap 06/17/21 [Rx] Furosemide [Lasix] 40 mg PO BID@0900,1600 30 Days #60 tab 06/17/21 [Rx] Follow up Appointment(s)/Referral(s): Shamir Rogers MD [STAFF PHYSICIAN] - 07/09/21 2:15 pm (Keep previous appointment @ [facility] location.) [facility], [NON-STAFF] - 1 Week Linda Raygoza MD [Primary Care Provider] - 07/07/21 1:00 pm () Ladarius Fernández MD [STAFF PHYSICIAN] - 06/22/21 9:20 am Ambulatory/Diagnostic Orders: Basic Metabolic Panel [LAB.AMB] Location: None Selected Magnesium [LAB.AMB] Location: None Selected Patient Instructions/Handouts: Coronavirus Disease 2019 (COVID-19), Heart Failure (GEN), Urinary Tract Infection in Men (DC), Fuentes Catheter Placement and Care (DC), Deep Vein Thrombosis (GEN) Activity/Diet/Wound Care/Special Instructions: Activity: As tolerated. Take breaks as needed. Diet: Heart healthy and carb consistent diet. Avoid salts, or foods with hidden salts such as canned or boxed foods and frozen dinners. Extra salt makes your heart work harder and traps the fluid in your body for longer. Special Instructions: Weigh yourself every morning after you urinate. If you gain 3 pounds overnight or more than 5 pounds in one week, call your primary physician and industrial welder for guidance on your medications or they may want to see you in their office. Keep a daily log of your weights and be sure to bring with you at follow up visits with your PCP and industrial welder. You are being discharged home with a fuentes catheter and will need to follow up with urologist, Dr. Fernández in one week once you have completed antibiotic treatment with Keflex (cephalexin). Take all of your medications as directed. NEVER skip a dose. And remember to keep all of your doctor's appointments and follow-up as needed. Elevate your legs when you are not up moving around to help with circulation and prevent swelling. Compression stockings are also a great way to improve lower extremity circulation and prevent/improve lower extremity edema. Call your primary care provider and industrial welder if you notice any extra swelling in your legs, ankles, feet or abdomen, if you have a new dry cough, if your shortness of breath worsens with activity or at rest, or if you feel more fatigued. Thank you for allowing us to participate in your care, it was truly a pleasure getting to know you and having you for our patient!!! Discharge Disposition: HOME WITH HOME HEALTH SERVICES <Rocky Hinojosa - Last Filed: 06/17/21 15:29> Providers Date of admission: 06/13/21 02:54 Attending physician: Yoko Grayson MD Consults: 06/13/21 08:37 Consult Physician Routine Consulting Provider: Ladarius Fernández Consult Reason/Comments: retention Do you want consulting provider notified?: Yes Primary care physician: Linda Raygoza
== END 2021-06-17 12:03 | disposition home health service (06) | DRG 299 ==
LOC: EC 23:39 → 4SSUR 06-13 02:54 → 6NMEDSUR 06-14 04:45
PROVIDERS: ADMIT Internal Medicine; ATTEND Internal Medicine
DX: I82.402 Acute embolism and thrombosis of unspecified deep veins of left lower extremity (principal); J12.82 Pneumonia due to coronavirus disease 2019; I50.23 Acute on chronic systolic (congestive) heart failure; J15.9 Unspecified bacterial pneumonia; U07.1 COVID-19; E87.1 Hypo-osmolality and hyponatremia; I13.0 Hypertensive heart and chronic kidney disease with heart failure and stage 1 through stage 4 chronic kidney disease, or unspecified chronic kidney disease; J44.0 Chronic obstructive pulmonary disease with (acute) lower respiratory infection; J98.11 Atelectasis; N13.8 Other obstructive and reflux uropathy; N17.9 Acute kidney failure, unspecified; N39.0 Urinary tract infection, site not specified; I08.1 Rheumatic disorders of both mitral and tricuspid valves; I27.20 Pulmonary hypertension, unspecified; I25.10 Atherosclerotic heart disease of native coronary artery without angina pectoris; N18.32 Chronic kidney disease, stage 3b; E78.5 Hyperlipidemia, unspecified; E83.42 Hypomagnesemia; E87.6 Hypokalemia; I48.91 Unspecified atrial fibrillation; N40.1 Benign prostatic hyperplasia with lower urinary tract symptoms; N43.3 Hydrocele, unspecified; N45.3 Epididymo-orchitis; D63.1 Anemia in chronic kidney disease; B96.1 Klebsiella pneumoniae [K. pneumoniae] as the cause of diseases classified elsewhere; Z79.02 Long term (current) use of antithrombotics/antiplatelets; Z79.82 Long term (current) use of aspirin; Z79.899 Other long term (current) drug therapy; Z85.048 Personal history of other malignant neoplasm of rectum, rectosigmoid junction, and anus; Z85.828 Personal history of other malignant neoplasm of skin; Z86.79 Personal history of other diseases of the circulatory system; Z93.3 Colostomy status; Z95.5 Presence of coronary angioplasty implant and graft; Z95.810 Presence of automatic (implantable) cardiac defibrillator
CPT/HCPCS: 36415; 51798; 71046; 76870; 80048; 80053; 81001; 82550; 83735; 83880; 84100; 84484; 85025; 85027; 85379; 85610; 85730; 87077; 87086; 87186; 87635; 93005; 93306; 93975; 96365; 96366; 96367; 96368; 96375; 99285

== ENCOUNTER 2021-07-16 18:16 | Emergency (ER) | payer MEDICARE ==
[2021-07-16 18:27] VITALS: RESP 18; TEMP 98.1
--- NOTE | 2021-07-16 19:28 | ED ---
Male Urogenital HPI - General Chief complaint: Urogenital Stated complaint: Urogenital Time Seen by Provider: 07/16/21 18:47 Source: patient, RN notes reviewed Mode of arrival: wheelchair Limitations: no limitations - History of Present Illness Initial comments: 80-year-old male who does self-catheterization who presents with complaints of hematuria. The patient has no fevers chills nausea vomiting sweats he does 5 times per day. He noted the blood in the urine earlier today. No pain with catheterization no unusual trauma. Patient is on anticoagulants. - Related Data Home Medications Medication Instructions Recorded Confirmed Aspirin [Adult Low Dose Aspirin EC] 81 mg PO DAILY@0900 05/24/16 07/16/21 Atorvastatin [Lipitor] 40 mg PO DAILY@0 05/24/16 07/16/21 Amiodarone [Cordarone] 200 mg PO BID@1600,209906/13/21 07/16/21 Cholecalciferol [Vitamin D3 (25 25 mcg PO DAILY@89906/13/21 07/16/21 Mcg = 1000 Iu)] Clopidogrel [Plavix] 75 mg PO DAILY@0906/13/21 07/16/21 Finasteride [Proscar] 5 mg PO DAILY@0906/13/21 07/16/21 Metoprolol Tartrate [Lopressor] 12.5 mg PO BID@1600,209906/13/21 07/16/21 Mexiletine [Mexitil] 150 mg PO BID@0900,209906/13/21 07/16/21 Sodium Bicarbonate Tab 650 mg PO BID@1600,209906/13/21 07/16/21 Tamsulosin [Flomax] 0.4 mg PO DAILY@0900 06/13/21 07/16/21 Apixaban [Eliquis] 5 mg PO BID@0900,209907/16/21 07/16/21 Epoetin Nacho-Epbx [Retacrit] 20,000 unit INJ Q7D 07/16/21 07/16/21 Furosemide [Lasix] 40 mg PO DAILY@1600 07/16/21 07/16/21 Potassium Chloride ER [K-Dur 10] 10 meq PO BID@1600,209907/16/21 07/16/21 Previous Rx's Medication Instructions Recorded Cephalexin [Keflex] 500 mg PO Q6HR 1 Days #28 cap 07/16/21 Allergies Allergy/AdvReac Type Severity Reaction Status Date / Time No Known Allergies Allergy Verified 07/16/21 19:36 Review of Systems ROS Statement: Those systems with pertinent positive or pertinent negative responses have been documented in the HPI. ROS Other: All systems not noted in ROS Statement are negative. Past Medical History Past Medical History: Coronary Artery Disease (CAD), Cancer, COPD, Deep Vein Thrombosis (DVT), Hyperlipidemia, Hypertension, Osteoarthritis (OA), Sleep Apnea/CPAP/BIPAP Additional Past Medical History / Comment(s): colon cancer, SKIN CANCER, colostomy, vertigo History of Any Multi-Drug Resistant Organisms: None Reported Past Surgical History: Adenoidectomy, Heart Catheterization With Stent, Hernia Repair, Pacemaker, Tonsillectomy Additional Past Surgical History / Comment(s): colostomy Past Anesthesia/Blood Transfusion Reactions: No Reported Reaction Date of Last Stent Placement:: 2008 Type of Cardiac Device: AICD Device Placement Date:: 2008 Past Psychological History: No Psychological Hx Reported Smoking Status: Never smoker Past Alcohol Use History: None Reported Past Drug Use History: None Reported - Past Family History Mother Family Medical History: Cancer Additional Family Medical History / Comment(s): breast cancer Father Additional Family Medical History / Comment(s): valve replacement and pacemaker. Brother(s) Additional Family Medical History / Comment(s): CABG General Exam - General Exam Comments Initial Comments: This is a well-developed well-nourished awake alert oriented 3 male Limitations: no limitations General appearance: alert, in no apparent distress Head exam: Present: atraumatic, normocephalic, normal inspection Eye exam: Present: normal appearance, PERRL, EOMI. Absent: scleral icterus, conjunctival injection, periorbital swelling ENT exam: Present: normal exam, mucous membranes moist Neck exam: Present: normal inspection. Absent: tenderness, meningismus, lymphadenopathy Respiratory exam: Present: normal lung sounds bilaterally. Absent: respiratory distress, wheezes, rales, rhonchi, stridor Cardiovascular Exam: Present: regular rate, normal rhythm, normal heart sounds. Absent: systolic murmur, diastolic murmur, rubs, gallop, clicks GI/Abdominal exam: Present: soft, normal bowel sounds, other (Colostomy in place. No gross bleeding from the penis.). Absent: distended, tenderness, guarding, rebound, rigid Extremities exam: Present: normal inspection, full ROM, normal capillary refill. Absent: tenderness, pedal edema, joint swelling, calf tenderness Back exam: Present: normal inspection Neurological exam: Present: alert, oriented X3, CN II-XII intact Psychiatric exam: Present: normal affect, normal mood Skin exam: Present: warm, dry, intact, normal color. Absent: rash Course Vital Signs 07/16/21 07/16/21 18:22 20:14 Temperature 98.1 F Pulse Rate 60 61 Respiratory 18 18 Rate Blood Pressure 138/77 136/80 O2 Sat by Pulse 98 96 Oximetry Medical Decision Making - Medical Decision Making I did discuss [employer] the patient has patient does demonstrate large was a red and white blood cells in the urine though no bacteria due to the patient's prior history of UTIs over he will be placed on antibiotics oral fluids we did discuss cutting down 1 catheterization per dayand out appropriately. The - Lab Data Lab Results 07/16/21 Range/Units 19:29 Urine Color Light Red Urine Appearance Cloudy (Clear) Urine pH 7.0 (5.0-8.0) Ur Specific Metcalfe 1.015 (1.001-1.035) Urine Protein 1+ H (Negative) Urine Glucose (UA) Negative (Negative) Urine Ketones Negative (Negative) Urine Blood Large H (Negative) Urine Nitrite Negative (Negative) Urine Bilirubin Negative (Negative) Urine Urobilinogen <2.0 (<2.0) mg/dL Ur Leukocyte Esterase Large H (Negative) Urine RBC >182 H (0-5) /hpf Urine WBC >182 H (0-5) /hpf Urine WBC Clumps Many H (None) /hpf Ur Squamous Epith Cells 1 (0-4) /hpf Urine Bacteria Occasional H (None) /hpf Urine Yeast (Budding) Moderate H (None) /hpf Disposition Clinical Impression: Hematuria Disposition: HOME SELF-CARE Condition: Good Instructions (If sedation given, give patient instructions): Hematuria (ED) Prescriptions: Cephalexin [Keflex] 500 mg PO Q6HR 1 Days #28 cap Is patient prescribed a controlled substance at d/c from ED?: No Referrals: Linda Raygoza MD [Primary Care Provider] - 1-2 days Rogers Cool MD [STAFF PHYSICIAN] - 1-2 days
[2021-07-16 19:47] LABS: Appearance,Urine Cloudy (Clear); Bacteria,Urine Occasional /hpf; Bilirubin,Urine Negative (Negative); Blood,Urine Large (Negative); Budding Yeast,Urine Moderate /hpf; Color,Urine Light Red; Glucose,Urine (UA) Negative (Negative); Ketones,Urine Negative (Negative); Leukocyte Esterase,Urine Large (Negative); Nitrite,Urine Negative (Negative); Protein,Urine 1+ (Negative); RBC,Urine >182 /hpf (0-5); Specific Gravity,Urine 1.015 (1.001-1.035); Squamous Epithelial Cell,Urine 1 /hpf (0-4); Urobilinogen,Urine <2.0 mg/dL (<2.0); WBC,Urine >182 /hpf (0-5)
[2021-07-16 20:15] VITALS: BP 136/80; PULSE 61
[2021-07-16] MEDS ORDERED: CEPHALEXIN 500 MG CAP PO STA (20:37)
== END 2021-07-16 20:49 | disposition home or self-care (01) ==
LOC: EC 18:16
DX: R31.9 Hematuria, unspecified (principal); I10 Essential (primary) hypertension; E78.5 Hyperlipidemia, unspecified; I25.10 Atherosclerotic heart disease of native coronary artery without angina pectoris; J44.9 Chronic obstructive pulmonary disease, unspecified; M19.90 Unspecified osteoarthritis, unspecified site; Z86.718 Personal history of other venous thrombosis and embolism; Z79.899 Other long term (current) drug therapy; Z79.82 Long term (current) use of aspirin; Z95.5 Presence of coronary angioplasty implant and graft; Z95.810 Presence of automatic (implantable) cardiac defibrillator
CPT/HCPCS: 81001; 87086; 99283

== ENCOUNTER 2021-07-20 07:57 | Observation (INO) | payer MEDICARE ==
[2021-07-19 09:39] VITALS: BMI 28.2
[~2021-07-20 07:57] MED LIST changes: -LACTATED RINGERS 1,000 ML IV SCH; -LIDOCAINE 1% 20 ML VIAL (10MG/ML) FOR IV START INTRADERMA PRN; +LIDOCAINE 1% INJ 10MG/ML (20 ML MDV) ONE
[2021-07-20] MEDS ORDERED: SODIUM CHLORIDE 0.9% 1,000 ML IV ONE (08:14)
[2021-07-20 09:29] LABS: Calcium 9.1 mg/dL (8.4-10.2); Potassium 4.1 mmol/L (3.5-5.1)
[2021-07-20] MEDS ORDERED: HEPARIN SODIUM,PORCINE 10,000 UNIT/ML 1 ML VIAL ONE (10:09)
[2021-07-20] MEDS ORDERED: PROTAMINE SULFATE 10 MG/ML 5 ML VIAL IV ONE (10:09)
[2021-07-20] MEDS ORDERED: PHENYLEPHRINE-0.9% NACL SYG 1,000 MCG/10 ML SYRINGE ONE (10:09)
[2021-07-20] MEDS ORDERED: MIDAZOLAM 2 MG/2 ML VIAL ONE (10:09)
[2021-07-20] MEDS ORDERED: ISOPROTERENOL 250 MCG/1.25 ML SYR IV ONE (10:09)
[2021-07-20] MEDS ORDERED: fentaNYL (PF) 50 MCG/ML 2 ML AMP ONE (10:09)
[2021-07-20] MEDS ORDERED: LIDOCAINE URO-JET JELLY 2% 5 ML KIT ONE (10:31)
--- NOTE | 2021-07-20 11:05 | P.HPCAR ---
History of Present Illness Patient was admitted for evaluation and management of ventricular tachycardia which was drug refractory Patient is stable to proceed with EP study and ablation for ischemic ventricular tachycardia High-risk procedure Explained to the patient and his in the office and once again today Discussed risks with anesthesia, PRINCIPAL ELECTRICAL ENGINEER Discussed with EP staff Risks include Fraility CAD, old DC, ischemic cardio myopathy Congestive heart failure but euvolemic and stable without orthopnea or PND History of DC status post stenting Recurrent ventricular tachycardia drug refractory VT is status post with presyncope Has failed combination of amiodarone and mexiletine and continues to have recurrent VT and ICD therapies repeatedly We will proceed with EP study and ablation in sinus rhythm Sinus mapping, scar mapping and ablation of anatomic isthmii We will start with very light conscious sedation General anesthesia will be employed only if the patient starts to move around, which would affect the 3-D electro anatomic mapping accuracy Physical Exam Vitals: Vital Signs Temp Pulse Resp BP Pulse Ox 07/20/21 08:54 98 F 60 6 L 160/72 99 Intake and Output 07/19/21 07/20/21 07/20/21 22:59 06:59 14:59 Intake Total 0 Balance 0 Intake: IV 0 Other: Weight 79.5 kg Past Medical History Past Medical History: Coronary Artery Disease (CAD), Cancer, COPD, Deep Vein Thrombosis (DVT), Hyperlipidemia, Hypertension, Myocardial Infarction (DC), Sleep Apnea/CPAP/BIPAP Additional Past Medical History / Comment(s): Hx colon cancer, 20 yrs ago, with colostomy, hx skin cancer, DVT X2 left leg, not using CPAP at this time. Hx DC 03/25/21. Hx kidney and bladder infection 06/22. Last Myocardial Infarction Date:: 03/2021 History of Any Multi-Drug Resistant Organisms: None Reported Past Surgical History: Adenoidectomy, AICD, Heart Catheterization With Stent, Hernia Repair, Pacemaker, Tonsillectomy Additional Past Surgical History / Comment(s): Colostomy, stent X2. Past Anesthesia/Blood Transfusion Reactions: No Reported Reaction Date of Last Stent Placement:: 03/22 Type of Cardiac Device: AICD Device Placement Date:: 04/2021 Past Psychological History: No Psychological Hx Reported Smoking Status: Never smoker Past Alcohol Use History: None Reported Past Drug Use History: None Reported - Past Family History Mother Family Medical History: Cancer Additional Family Medical History / Comment(s): Breast cancer. Father Additional Family Medical History / Comment(s): Valve replacement and pacemaker. Brother(s) Additional Family Medical History / Comment(s): CABG. Physical Examination Vital Signs Temp Pulse Resp BP Pulse Ox 07/20/21 08:54 98 F 60 6 L 160/72 99 Intake and Output 07/19/21 07/20/21 07/20/21 22:59 06:59 14:59 Intake Total 0 Balance 0 Intake: IV 0 Other: Weight 79.5 kg Results 07/20/21 08:30 Comprehensive Metabolic Panel 07/20/21 Range/Units 08:30 Sodium 133 L (137-145) mmol/L Potassium 4.1 (3.5-5.1) mmol/L Chloride 103 (98-107) mmol/L Carbon Dioxide 19 L (22-30) mmol/L BUN 29 H (9-20) mg/dL Creatinine 2.02 H (0.66-1.25) mg/dL Glucose 97 (74-99) mg/dL Calcium 9.1 (8.4-10.2) mg/dL Current Medications Generic Name Dose Route Start Last Admin Trade Name Freq PRN Reason Stop Dose Admin Sodium Chloride 1,000 mls @ 20 mls/hr 07/20/21 05:52 Saline 0.9% IV 08/19/21 05:53 .Q24H ANGELITA Lactated Ringer's 1,000 mls @ 20 mls/hr 07/20/21 05:52 Lactated Ringers IV 08/19/21 05:53 .Q24H ANGELITA Intake and Output 07/19/21 07/20/21 07/20/21 22:59 06:59 14:59 Intake Total 0 Balance 0 Intake: IV 0 Other: Weight 79.5 kg Patient Weight 07/21/21 06:59 Weight 79.5 kg 07/20/21 08:30
[2021-07-20] MEDS ORDERED: HEPARIN SODIUM (1,000 UNIT/ML) 1,000 UNIT in SODIUM CHLORIDE 0.9% 1,000 ML IRRIGATION ONE (11:14)
[2021-07-20] MEDS ORDERED: LIDOCAINE 1% INJ 10MG/ML (20 ML MDV) SQ ONE ×2 (11:14)
[2021-07-20] MEDS ORDERED: HEPARIN SOD,PORK IN 0.45% NACL 25,000 UNIT in 0.45% NACL 1 250ML.BAG IV ONE (11:31)
[2021-07-20] MEDS ORDERED: IOPAMIDOL-370 50ML BTL INJ ONE ×2 (14:41)
[2021-07-20] MEDS ORDERED: ACETAMINOPHEN IV (For NPO) 1,000 MG in EMPTY BAG 1 BAG IVPB ONE (14:58)
[2021-07-20] MEDS ORDERED: ACETAMINOPHEN TAB 325 MG TAB PO PRN (14:58)
[2021-07-20] MEDS: SODIUM CHLORIDE 0.9% 1,000 ML IV SCH (17:09)
[2021-07-20] MEDS: LACTATED RINGERS 1,000 ML IV SCH (17:09)
--- NOTE | 2021-07-20 17:24 | CE ---
CARDIAC ELECTROPHYSIOLOGY REPORT Ministerio Mcdaniels is an 80-year-old male patient who has ischemic cardiomyopathy and recurrent ventricular tachycardia with breakthrough episodes on amiodarone and plus mexiletine with presyncope. He has had recurrent episodes despite revascularization last year. He was brought in for an EP study and VT ablation. Patient is brought to the EP lab in a fasting state. Written informed consent was obtained prior to the procedure. The left and right groins were prepped and draped as per protocol. Venous sheaths were placed in the right and left femoral veins. Arterial sheath was placed in the right femoral artery with a long sheath. Dual-chamber ICD was interrogated and reprogrammed. The thresholds were stable. Impedances were within normal limits and intracardiac VT morphology was printed out. Rate responsiveness was turned off and ICD therapies were turned off. At the end of the procedure reinterrogation was performed, impedances were stable. ICD therapies were turned on. Rate responsiveness was turned on and on fluoroscopy there was no change in the position of the right atrial or RV lead. IV heparin was begun. IV antibiotics were given and a PentaRay catheter was placed in the left ventricle and voltage mapping of the left ventricle was performed. The voltage mapping revealed this was a fairly normal voltage map with minimal scar limited only base of the left ventricle. Even this amount was in the scar amount was very small. During the intracardiac mapping, his clinical VT was induced, but it did not appear to be originating in the left ventricle despite full activation map. Therefore, the right ventricle was then mapped, intracardiac echocardiography had been performed and a 3D anatomic mapping of the left and right ventricles were performed. The right ventricle was mapped. Subsequently, VT was once again induced and this was a focal ventricular tachycardia that mapped to the posterior septum of the RVOT, some distance away from the aortic root. Excellent unipolar signals are noted showed very early and sharply negative. RF ablation was applied at this site successfully. Following that, corresponding myocardium on the other side of the septum on the left ventricle was mapped. The fractionated electrograms were noted. An RF ablation was performed on the opposite side of the septum in juxtaposition to the successful site on the right ventricular septum. This was a long procedure , it involved mapping of the left ventricle endocardium as well as the right ventricular endocardium, both scar mapping as well as activation mapping of the ventricular tachycardia was performed. There was also a second VT induced from the left ventricle, but this was only on 1 occasion during catheter mapping and was not reproducible again. This procedure was performed under very light conscious sedation. The patient tolerated the procedure well without any acute complications. The venous sheaths were closed. Manual pressure was applied on the arterial puncture site and heparin was reversed. The patient tolerated the procedure well without any acute complications. PLAN: Continue amiodarone. Stop mexiletine and reduce amiodarone after a month. Continue antiplatelet agent, anticoagulant agents as well as atherosclerotic management. MMODL / IJN: [id number] /
[2021-07-20 18:13] VITALS: PULSE 60
[2021-07-20] MEDS: CEPHALEXIN 500 MG CAP PO SCH ×2 (18:16→20:05)
[2021-07-20] MEDS: POTASSIUM CHLORIDE ER 10 MEQ TAB.ER.PRT PO SCH (20:04)
[2021-07-20] MEDS: METOPROLOL TARTRATE 12.5 MG TAB PO SCH (20:04)
[2021-07-20] MEDS: SODIUM BICARBONATE TAB 650 MG TAB PO SCH (20:04)
[2021-07-20] MEDS: AMIODARONE 200 MG TAB PO SCH (20:04)
[2021-07-21] MEDS: LACTATED RINGERS 1,000 ML IV SCH (04:50)
[2021-07-21] MEDS: SODIUM CHLORIDE 0.9% 1,000 ML IV SCH (04:51)
[2021-07-21] MEDS: CEPHALEXIN 500 MG CAP PO SCH ×2 (05:22→11:57)
[2021-07-21] MEDS: ATORVASTATIN 40 MG TAB PO SCH (08:57)
[2021-07-21] MEDS: METOPROLOL TARTRATE 12.5 MG TAB PO SCH ×2 (08:57→19:44)
[2021-07-21] MEDS: POTASSIUM CHLORIDE ER 10 MEQ TAB.ER.PRT PO SCH ×2 (08:57→19:45)
[2021-07-21] MEDS: CLOPIDOGREL 75 MG TAB PO SCH (08:57)
[2021-07-21] MEDS: AMIODARONE 200 MG TAB PO SCH ×2 (08:57→19:44)
[2021-07-21] MEDS: FUROSEMIDE 40 MG TAB PO SCH (08:57)
[2021-07-21] MEDS: ASPIRIN 81 MG PO SCH (08:57)
[2021-07-21] MEDS: SODIUM BICARBONATE TAB 650 MG TAB PO SCH ×2 (08:57→19:45)
[2021-07-21] MEDS: TAMSULOSIN 0.4 MG CAP.ER.24H PO SCH (08:57)
[2021-07-21] MEDS: FINASTERIDE 5 MG TAB PO SCH (08:58)
--- NOTE | 2021-07-21 11:29 | P.PN ---
Subjective Patient is doing very well. 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 Likely discharge tomorrow Objective - Vital Signs Vital signs: Vital Signs Temp 98.2 F 07/21/21 06:56 Pulse 60 07/21/21 06:56 Resp 18 07/21/21 06:56 BP 104/51 07/21/21 06:56 Pulse Ox 97 07/21/21 06:56 Intake & Output 07/20/21 07/21/21 07/21/21 18:59 06:59 18:59 Intake Total 1279 120 Output Total 1225 1100 Balance 54 -1100 120 Weight 79.5 kg Intake: IV 1279 Oral 120 Output: Urine 1225 1100 Coude 200 Other: Voiding Method Indwelling Catheter # Voids 2 - Labs CBC & Chem 7: 07/20/21 08:30
[2021-07-21] MEDS: CEPHALEXIN 250 MG CAP PO SCH (19:44)
[2021-07-22] MEDS: LACTATED RINGERS 1,000 ML IV SCH (03:42)
[2021-07-22] MEDS: SODIUM CHLORIDE 0.9% 1,000 ML IV SCH (03:42)
[2021-07-22] MEDS: CEPHALEXIN 250 MG CAP PO SCH (03:42)
[2021-07-22 07:46] VITALS: BP 100/54; RESP 18; TEMP 98.2
[2021-07-22] MEDS: CLOPIDOGREL 75 MG TAB PO SCH (08:39)
[2021-07-22] MEDS: METOPROLOL TARTRATE 12.5 MG TAB PO SCH (08:39)
[2021-07-22] MEDS: TAMSULOSIN 0.4 MG CAP.ER.24H PO SCH (08:39)
[2021-07-22] MEDS: POTASSIUM CHLORIDE ER 10 MEQ TAB.ER.PRT PO SCH (08:39)
[2021-07-22] MEDS: FUROSEMIDE 40 MG TAB PO SCH (08:39)
[2021-07-22] MEDS: ATORVASTATIN 40 MG TAB PO SCH (08:39)
[2021-07-22] MEDS: SODIUM BICARBONATE TAB 650 MG TAB PO SCH (08:39)
[2021-07-22] MEDS: AMIODARONE 200 MG TAB PO SCH (08:39)
[2021-07-22] MEDS: ASPIRIN 81 MG PO SCH (08:40)
[2021-07-22] MEDS: FINASTERIDE 5 MG TAB PO SCH (08:40)
--- NOTE | 2021-07-22 15:07 | P.DS ---
Providers Date of admission: 07/21/21 15:31 Attending physician: Shamir Rogers [facility] Course: Patient is doing well. No chest discomfort dizziness lightheadedness His groins are healing well with minimal hematoma but he is a bit tender Heart sounds are normal normal S1 normal S2 Breath sounds are clear no rhonchi no crackles Extent is warm no edema His dual-chamber ICD was interrogated and is within normal limits Impression Ischemic cardio myopathy Sustained recurrent ventricular tachycardia, drug refractory Status post VT ablation This was a focal VT on this posterior septum of the RVOT area RF ablation was performed in the RVOT area as well as in the corresponding side of the left ventricle He is doing well postoperatively be monitored him for over 24 hours line he has not had any groin bleeding this time Last time when he had coronary stenting he had a very large hematoma He be discharged home today and he will continue all his cardiac medications with the exception of mexiletine I will stop mexiletine I was held ELIQUIS until tomorrow morning when he will start ELIQUIS tomorrow morning We will see him in the next 1-2 weeks Patient Condition at Discharge: Good Plan - Discharge Summary Discharge Rx Participant: Yes New Discharge Prescriptions: Continue RX: Atorvastatin [Lipitor] 40 mg PO DAILY RX: Finasteride [Proscar] 5 mg PO DAILY RX: Metoprolol Tartrate [Lopressor] 12.5 mg PO BID RX: Tamsulosin [Flomax] 0.4 mg PO DAILY RX: Mexiletine [Mexitil] 150 mg PO BID RX: Furosemide [Lasix] 40 mg PO DAILY RX: Potassium Chloride ER [K-Dur 10] 10 meq PO BID RX: Cholecalciferol [Vitamin D3 (25 Mcg = 1000 Iu)] 2,000 units PO DAILY RX: Amiodarone [Cordarone] 200 mg PO BID RX: Sodium Bicarbonate Tab 650 mg PO BID RX: Clopidogrel [Plavix] 75 mg PO DAILY RX: Apixaban [Eliquis] 5 mg PO BID RX: Epoetin Nacho-Epbx [Retacrit] 20,000 unit INJ Q7D RX: Cephalexin [Keflex] 500 mg PO Q6HR 1 Days #28 cap Discharge Medication List RX: Atorvastatin [Lipitor] 40 mg PO DAILY 05/24/16 [History] RX: Amiodarone [Cordarone] 200 mg PO BID 06/13/21 [History] RX: Cholecalciferol [Vitamin D3 (25 Mcg = 1000 Iu)] 2,000 units PO DAILY 06/13/21 [History] RX: Clopidogrel [Plavix] 75 mg PO DAILY 06/13/21 [History] RX: Finasteride [Proscar] 5 mg PO DAILY 06/13/21 [History] RX: Metoprolol Tartrate [Lopressor] 12.5 mg PO BID 06/13/21 [History] RX: Mexiletine [Mexitil] 150 mg PO BID 06/13/21 [History] RX: Sodium Bicarbonate Tab 650 mg PO BID 06/13/21 [History] RX: Tamsulosin [Flomax] 0.4 mg PO DAILY 06/13/21 [History] RX: Apixaban [Eliquis] 5 mg PO BID 07/16/21 [History] RX: Cephalexin [Keflex] 500 mg PO Q6HR 1 Days #28 cap 07/16/21 [Rx] RX: Epoetin Nacho-Epbx [Retacrit] 20,000 unit INJ Q7D 07/16/21 [History] RX: Furosemide [Lasix] 40 mg PO DAILY 07/16/21 [History] RX: Potassium Chloride ER [K-Dur 10] 10 meq PO BID 07/16/21 [History] Follow up Appointment(s)/Referral(s): Shamir Rogers MD [STAFF PHYSICIAN] - 1 Week (Office will call you with appointment date and time for follow up with Dr. Rogers Start Eliquis tomorrow in am. Continue Plavix. Stop Aspirin) Patient Instructions/Handouts: Electrophysiology Study (DC), Cardiac Ablation (DC) Activity/Diet/Wound Care/Special Instructions: No Driving until approved by Dr. Rogers Post EP study - Ablation instructions 1. Keep access sites dry for 2 days. 2. No heavy lifting or straining for 2 days. 3. Avoid bending the hips repeatedly for 2 days. 4. You may go up and down stairs slowly Call if the following is noted 1. Bleeding, increasing swelling or pain at the access sites. 2. Increasing chest discomfort, especially upon taking a deep breath. 3. Increasing shortness of breath, at rest or with exertion. 4. Undue cough / phlegm 5. Difficulty or pain while swallowing. 6. Pain or change in color in the extremities. 7. Fever, chills, rigors. 8. Increasing headache or neurologic symptoms. 9. Dizziness, fainting, palpitations Discharge Disposition: HOME SELF-CARE
== END 2021-07-22 10:24 | disposition home or self-care (01) ==
LOC: CATHEP 07:57 → 6NMEDSUR 15:22 → CATHEP 07-21 15:31
PROVIDERS: ADMIT Internal Medicine Clinical Cardiac Electrophysiology; ATTEND Internal Medicine Clinical Cardiac Electrophysiology
DX: I25.5 Ischemic cardiomyopathy (principal); I47.2 Ventricular tachycardia; I11.0 Hypertensive heart disease with heart failure; I50.9 Heart failure, unspecified; I48.91 Unspecified atrial fibrillation; I25.2 Old myocardial infarction; I25.10 Atherosclerotic heart disease of native coronary artery without angina pectoris; J44.9 Chronic obstructive pulmonary disease, unspecified; E78.5 Hyperlipidemia, unspecified; G47.30 Sleep apnea, unspecified; Z20.822 Contact with and (suspected) exposure to COVID-19; Z86.718 Personal history of other venous thrombosis and embolism; Z85.038 Personal history of other malignant neoplasm of large intestine; Z85.828 Personal history of other malignant neoplasm of skin; Z86.19 Personal history of other infectious and parasitic diseases; Z95.5 Presence of coronary angioplasty implant and graft; Z95.810 Presence of automatic (implantable) cardiac defibrillator; Z98.890 Other specified postprocedural states; Z82.49 Family history of ischemic heart disease and other diseases of the circulatory system; Z80.3 Family history of malignant neoplasm of breast
CPT/HCPCS: 93662; 93654; 80048; 87635; G0378 ×2; C1894; C1769 ×3; C1760; C1731; C1759; C1893; C1732; C1730; S0138 ×2; J2250; J2720; J1644 ×3; J0690; J2001; J3010; J2370; Q9967

== ENCOUNTER 2021-12-01 18:29 | Emergency (ER) | payer MEDICARE ==
[2021-12-01] MEDS ORDERED: SODIUM CHLORIDE 0.9% 500 ML 500 ML IV ONE (18:54)
[2021-12-01] MEDS ORDERED: MORPHINE SULFATE 2 MG/ML SYRINGE IVP STA ×2 (18:54→23:04)
--- NOTE | 2021-12-01 19:12 | ED ---
Abdominal Pain HPI - General Chief Complaint: Abdominal Pain Stated Complaint: kidney pain Time Seen by Provider: 12/01/21 18:36 Source: patient Mode of arrival: wheelchair Limitations: no limitations - History of Present Illness Initial Comments: Patient is an 80-year-old male with a past medical history kidney failure and CHF presenting with chief complaint of pelvic pain. Pain began on Monday and is a constant cramping sensation. It is Occasionally accompanied sharp stabbing pain. Pain is not changed by exertion or position. Patient states 6 months ago he had a severe bladder infection and "this feels the same way". Today after voiding he straight cathed himself and got 600cc output. Pt states that last week he noticed some blood in his urine but did not seek care for it because "it kept getting cell support operator". He has a history of urinary retention, nephrolithiasis and "stones in the bladder". Admits to dysuria. He denies back pain, fever, c hills, nausea, vomiting, chest pain, SOB, diarrhea, urgency, frequency. - Related Data Home Medications Medication Instructions Recorded Confirmed Atorvastatin [Lipitor] 40 mg PO HS 05/24/16 12/01/21 Amiodarone [Cordarone] 200 mg PO BID 06/13/21 12/01/21 Cholecalciferol [Vitamin D3 (25 50 mcg PO DAILY@1200 06/13/21 12/01/21 Mcg = 1000 Iu)] Clopidogrel [Plavix] 75 mg PO DAILY 06/13/21 12/01/21 Finasteride [Proscar] 5 mg PO DAILY 06/13/21 12/01/21 Metoprolol Tartrate [Lopressor] 12.5 mg PO BID 06/13/21 12/01/21 Sodium Bicarbonate Tab 650 mg PO TID 06/13/21 12/01/21 Tamsulosin [Flomax] 0.4 mg PO HS 06/13/21 12/01/21 Apixaban [Eliquis] 5 mg PO BID 07/16/21 12/01/21 Calcium Acetate 667 mg PO W/BRKFST 12/01/21 12/01/21 Spironolactone 12.5 mg PO BID 12/01/21 12/01/21 calcitrioL [Rocaltrol] 0.25 mcg PO Q7D 12/01/21 12/01/21 Previous Rx's Medication Instructions Recorded Cephalexin [Keflex] 500 mg PO Q6HR 10 Days #40 cap 12/01/21 Docusate [Colace] 100 mg PO DAILY #3 capsule 12/01/21 HYDROcodone/APAP 5-325MG [[place] 1 tab PO Q6HR PRN 3 Days #12 tab 12/01/21 5-325] Allergies Allergy/AdvReac Type Severity Reaction Status Date / Time No Known Allergies Allergy Verified 12/01/21 19:51 Review of Systems ROS Statement: Those systems with pertinent positive or pertinent negative responses have been documented in the HPI. ROS Other: All systems not noted in ROS Statement are negative. Past Medical History Past Medical History: Coronary Artery Disease (CAD), Cancer, COPD, Deep Vein Thrombosis (DVT), Hyperlipidemia, Hypertension, Osteoarthritis (OA), Sleep Apnea/CPAP/BIPAP Additional Past Medical History / Comment(s): colon cancer, SKIN CANCER, colostomy, vertigo Last Myocardial Infarction Date:: 03/2021 History of Any Multi-Drug Resistant Organisms: None Reported Past Surgical History: Adenoidectomy, Heart Catheterization With Stent, Hernia Repair, Pacemaker, Tonsillectomy Additional Past Surgical History / Comment(s): colostomy Past Anesthesia/Blood Transfusion Reactions: No Reported Reaction Date of Last Stent Placement:: 2008 Type of Cardiac Device: AICD Device Placement Date:: 2008 Past Psychological History: No Psychological Hx Reported Smoking Status: Never smoker Past Alcohol Use History: None Reported Past Drug Use History: None Reported - Past Family History Mother Family Medical History: Cancer Additional Family Medical History / Comment(s): Breast cancer. Father Additional Family Medical History / Comment(s): Valve replacement and pacemaker. Brother(s) Additional Family Medical History / Comment(s): CABG. General Exam Limitations: no limitations General appearance: alert, in no apparent distress (appears to be in some pain, but is talking in full sentences and stable) Head exam: Present: atraumatic, normocephalic, normal inspection Eye exam: Present: normal appearance, PERRL, EOMI. Absent: scleral icterus, conjunctival injection, periorbital swelling Neck exam: Present: normal inspection Respiratory exam: Present: normal lung sounds bilaterally. Absent: respiratory distress, wheezes, rales, rhonchi, stridor Cardiovascular Exam: Present: normal rhythm GI/Abdominal exam: Present: soft, tenderness, guarding, normal bowel sounds. Absent: distended, rebound, rigid Neurological exam: Present: alert, oriented X3, CN II-XII intact Psychiatric exam: Present: normal affect, normal mood Skin exam: Present: warm, dry, intact, normal color. Absent: rash Course Vital Signs 12/01/21 12/01/21 12/01/21 18:31 22:57 23:46 Temperature 97.9 F 98.3 F Pulse Rate 57 L 67 62 Respiratory 16 18 18 Rate Blood Pressure 114/53 139/93 146/77 O2 Sat by Pulse 98 98 98 Oximetry - Reevaluation(s) Reevaluation #1: Pt was cathed and output measured 300cc 12/01/21 20:21 Medical Decision Making - Medical Decision Making Anisa right [id number] male with a past medical history of kidney failure and CHF presenting with lower quadrant pain. Pain is a cramping sensation that spreads across the bilateral lower quadrants with more intensity in the left lower quadrant. At times there is a sharp sensation, pain does not vary with exertion or position. Patient has a history of "stones in the bladder". UA shows signs of infection. Ultrasound revealed L urinary obstruction. CT reveals an 8 mm calculus in the distal left ureter. I discussed the results with his sulfuric acid plant operator Dr. Cool who requested a KUB x-ray and stated he could follow-up in the office in the next 1-2 days. He was given a dose of Flomax, 1 g of Rocephin, and 4 mg of morphine. He was discharged with Keflex 500 mg every 6hrs for 10 days, [place] 5/325 mg every 6hrs as needed for pain, and Colace 100 mg daily. Follow up with sulfuric acid plant operator in 1-2 days. Return to ER with worsening symptoms or new onset alarming symptoms, including but not limited to fever, chills, urinary retention, hematuria, vomiting. Answered all questions. Patient conveyed verbal understanding and agreed to the plan. I discussed this case with my attending Dr. Burch. - Lab Data Result diagrams: 12/01/21 19:42 12/01/21 19:42 Lab Results 12/01/21 12/01/21 12/01/21 Range/Units 19:42 19:42 19:42 WBC 8.9 (3.8-10.6) k/uL RBC 3.76 L (4.30-5.90) m/uL Hgb 12.1 L (13.0-17.5) gm/dL Hct 36.0 L (39.0-53.0) % MCV 95.8 (80.0-100.0) fL MCH 32.1 (25.0-35.0) pg MCHC 33.5 (31.0-37.0) g/dL RDW 13.6 (11.5-15.5) % Plt Count 210 (150-450) k/uL MPV 8.1 Neutrophils % 83 % Lymphocytes % 7 % Monocytes % 8 % Eosinophils % 1 % Basophils % 0 % Neutrophils # 7.3 (1.3-7.7) k/uL Lymphocytes # 0.6 L (1.0-4.8) k/uL Monocytes # 0.7 (0-1.0) k/uL Eosinophils # 0.1 (0-0.7) k/uL Basophils # 0.0 (0-0.2) k/uL Sodium 135 L (137-145) mmol/L Potassium 4.3 (3.5-5.1) mmol/L Chloride 104 (98-107) mmol/L Carbon Dioxide 23 (22-30) mmol/L Anion Gap 8 mmol/L BUN 32 H (9-20) mg/dL Creatinine 2.01 H (0.66-1.25) mg/dL Est GFR (CKD-EPI)AfAm 35 (>60 ml/min/1.73 sqM) Est GFR (CKD-EPI)NonAf 30 (>60 ml/min/1.73 sqM) Glucose 109 H (74-99) mg/dL Plasma Lactic Acid Carloz (0.7-2.0) mmol/L Calcium 8.6 (8.4-10.2) mg/dL Total Bilirubin 0.9 (0.2-1.3) mg/dL AST 32 (17-59) U/L ALT 49 (4-49) U/L Alkaline Phosphatase 99 (38-126) U/L Total Protein 6.1 L (6.3-8.2) g/dL Albumin 3.4 L (3.5-5.0) g/dL Amylase 63 (30-110) U/L Lipase 118 (23-300) U/L Urine Color Yellow Urine Appearance Cloudy (Clear) Urine pH 7.0 (5.0-8.0) Ur Specific Wilson 1.012 (1.001-1.035) Urine Protein Trace H (Negative) Urine Glucose (UA) Negative (Negative) Urine Ketones Negative (Negative) Urine Blood Moderate H (Negative) Urine Nitrite Negative (Negative) Urine Bilirubin Negative (Negative) Urine Urobilinogen <2.0 (<2.0) mg/dL Ur Leukocyte Esterase Large H (Negative) Urine RBC 18 H (0-5) /hpf Urine WBC 20 H (0-5) /hpf Ur Squamous Epith Cells 1 (0-4) /hpf Urine Bacteria Rare H (None) /hpf Urine Mucus Rare H (None) /hpf 12/01/21 Range/Units 19:42 WBC (3.8-10.6) k/uL RBC (4.30-5.90) m/uL Hgb (13.0-17.5) gm/dL Hct (39.0-53.0) % MCV (80.0-100.0) fL MCH (25.0-35.0) pg MCHC (31.0-37.0) g/dL RDW (11.5-15.5) % Plt Count (150-450) k/uL MPV Neutrophils % % Lymphocytes % % Monocytes % % Eosinophils % % Basophils % % Neutrophils # (1.3-7.7) k/uL Lymphocytes # (1.0-4.8) k/uL Monocytes # (0-1.0) k/uL Eosinophils # (0-0.7) k/uL Basophils # (0-0.2) k/uL Sodium (137-145) mmol/L Potassium (3.5-5.1) mmol/L Chloride (98-107) mmol/L Carbon Dioxide (22-30) mmol/L Anion Gap mmol/L BUN (9-20) mg/dL Creatinine (0.66-1.25) mg/dL Est GFR (CKD-EPI)AfAm (>60 ml/min/1.73 sqM) Est GFR (CKD-EPI)NonAf (>60 ml/min/1.73 sqM) Glucose (74-99) mg/dL Plasma Lactic Acid Carloz 1.3 (0.7-2.0) mmol/L Calcium (8.4-10.2) mg/dL Total Bilirubin (0.2-1.3) mg/dL AST (17-59) U/L ALT (4-49) U/L Alkaline Phosphatase (38-126) U/L Total Protein (6.3-8.2) g/dL Albumin (3.5-5.0) g/dL Amylase (30-110) U/L Lipase (23-300) U/L Urine Color Urine Appearance (Clear) Urine pH (5.0-8.0) Ur Specific Wilson (1.001-1.035) Urine Protein (Negative) Urine Glucose (UA) (Negative) Urine Ketones (Negative) Urine Blood (Negative) Urine Nitrite (Negative) Urine Bilirubin (Negative) Urine Urobilinogen (<2.0) mg/dL Ur Leukocyte Esterase (Negative) Urine RBC (0-5) /hpf Urine WBC (0-5) /hpf Ur Squamous Epith Cells (0-4) /hpf Urine Bacteria (None) /hpf Urine Mucus (None) /hpf - Radiology Data Radiology results: report reviewed Abdominal CT without contrast: Obstructing 8 mm calculus in the distal left ureter found on CT. Ultrasound Of Kidneys and Bladder: Left urinary obstruction suspected Disposition Clinical Impression: Nephrolithiasis Disposition: HOME SELF-CARE Condition: Good Instructions (If sedation given, give patient instructions): Kidney Stones (ED) Additional Instructions: Follow up with Dr. Cool in 1-2 days. Take medication as prescribed. Report to ER with worsening symptoms or new onset alarming symptoms such as fever, hematuria, increasing abdominal pain, etc. Prescriptions: Docusate [Colace] 100 mg PO DAILY #3 capsule Cephalexin [Keflex] 500 mg PO Q6HR 10 Days #40 cap HYDROcodone/APAP 5-325MG [[place] 5-325] 1 tab PO Q6HR PRN 3 Days #12 tab PRN Reason: Pain Is patient prescribed a controlled substance at d/c from ED?: Yes When asked, does pt state using other controlled substances?: No If prescribed controlled substance>3 days was MAPS reviewed?: Prescribed <3 Days If opioid is for acute pain is fill amount 7 days or less?: Yes If Rx opioid, was Start Talking consent form obtained?: Yes Referrals: Denise Fay MD [Primary Care Provider] - 1-2 days Time of Disposition: 23:58
[2021-12-01 19:52] LABS: Basophils % (A) 0 %; Eosinophils # (A) 0.1 k/uL (0-0.7); Eosinophils % (A) 1 %; HGB 12.1 gm/dL (13.0-17.5); Lymphocytes # (A) 0.6 k/uL (1.0-4.8); Lymphocytes % (A) 7 %; MCH 32.1 pg (25.0-35.0); MCHC 33.5 g/dL (31.0-37.0); MCV 95.8 fL (80.0-100.0); Mean Platelet Volume 8.1; Monocytes # (A) 0.7 k/uL (0-1.0); Monocytes % (A) 8 %; Neutrophils # (A) 7.3 k/uL (1.3-7.7); Neutrophils % (A) 83 %; Platelet Count 210 k/uL (150-450); RBC 3.76 m/uL (4.30-5.90); RDW 13.6 % (11.5-15.5); WBC 8.9 k/uL (3.8-10.6)
[2021-12-01 20:06] LABS: Albumin 3.4 g/dL (3.5-5.0); Calcium 8.6 mg/dL (8.4-10.2); Potassium 4.3 mmol/L (3.5-5.1); Total Bilirubin 0.9 mg/dL (0.2-1.3); Total Protein 6.1 g/dL (6.3-8.2)
--- NOTE | 2021-12-01 20:35 | US ---
EXAMINATION TYPE: US renals and bladder DATE OF EXAM: 12/01/2021 COMPARISON: 03/23/2020 CLINICAL HISTORY: pelvic pain, back pain, hx of nephrolithiasis . Patient complains of left-sided pel lady pain. Hx of renal stones EXAM MEASUREMENTS: Right Kidney: 9.1 x 4.6 x 5.0 cm Left Kidney: 9.9 x 4.4 x 4.6 cm Right Kidney: Echogenic focus with twinkle artifact measuring 0.92 cm. Hypoechoic focus with enhancem ent seen medially measuring 1.0 x 0.9 x 1.1 cm. Anechoic focus seen lower pole measuring 2.1 x 1.6 x 1.6 cm. Left Kidney: Echogenic focus seen measuring 0.75 cm. Probable moderate hydronephrosis seen; limited v isualization due to overlying bowel gas. Bladder: Not seen Bilateral Jets seen: No SCANNED at area of pain in LLQ; Echogenic area noted with posterior shadowing 0.99 cm. Unable to determine if focus is within ureter. There is no evidence for hydronephrosis at this point in time. No nephrolithiasis is seen. No levi s are identified. The urinary bladder is anechoic. Bilateral ureteral jets are seen. IMPRESSION: Nonobstructing calculi in the lower pole of the right kidney. Left-sided hydronephrosis. 7 mm left re nal calculus. Left renal obstruction is suspected. Left-sided hydronephrosis is new compared to old exam.
[2021-12-01 20:46] LABS: Appearance,Urine Cloudy (Clear); Bacteria,Urine Rare /hpf; Bilirubin,Urine Negative (Negative); Blood,Urine Moderate (Negative); Color,Urine Yellow; Glucose,Urine (UA) Negative (Negative); Ketones,Urine Negative (Negative); Leukocyte Esterase,Urine Large (Negative); Mucus,Urine Rare /hpf; Nitrite,Urine Negative (Negative); Protein,Urine Trace (Negative); RBC,Urine 18 /hpf (0-5); Specific Gravity,Urine 1.012 (1.001-1.035); Squamous Epithelial Cell,Urine 1 /hpf (0-4); Urobilinogen,Urine <2.0 mg/dL (<2.0); WBC,Urine 20 /hpf (0-5)
--- NOTE | 2021-12-01 22:38 | CT ---
EXAMINATION TYPE: CT abdomen pelvis wo con DATE OF EXAM: 12/01/2021 COMPARISON: None HISTORY: left flank pain CT DLP: 634.2 mGycm Automated exposure control for dose reduction was used. Images obtained from the diaphragm to the floor the pelvis without contrast. Heart size is normal. There is no pericardial effusion. There are some infiltrate and atelectasis at the right posterior lung base. There is small right pleural effusion. There is hiatal hernia. There are calcified gallstones. Liver shows no discrete mass. Spleen is intact. There is no pancreati c mass. There are bilateral renal calculi that measure up to 2 cm. There is left-sided hydronephrosis and hyd roureter. There is 8mm calculus in the distal left ureter. Bladder distends smoothly. There is no ing uinal hernia. There is colostomy in the left lower quadrant with parastomal hernia containing multipl e loops of bowel. There are multiple sigmoid diverticula. There are calcifications at the presacral r egion at the surgery site with some soft tissue density at the rectum measuring 3.5 cm in diameter. There is no free air. There is no ascites. There is no sign of a bowel obstruction. Right kidney show s no sign of obstruction. The lumbar vertebrae have normal alignment. There is no compression fracture. The facet joints are in tact. The bony pelvis is intact. Abdominal aorta is atheromatous. IMPRESSION: Obstructing calculus at the left ureterovesical junction with left-sided hydronephrosis and hydrouret er. Bilateral multiple renal calculi. Cholelithiasis. Soft tissue density at the rectum could be postsurgical changes. Recommend comparison with previous e xam. Recurrent tumor not excluded. There is sigmoid diverticulosis without diverticulitis. There is p eristomal hernia containing bowel. No bowel obstruction. There are some small bowel loops up to 3.2 c m suggestive of ileus.
[2021-12-01] MEDS ORDERED: TAMSULOSIN 0.4 MG CAP.ER.24H PO STA (22:46)
[2021-12-01 22:57] VITALS: RESP 18
--- NOTE | 2021-12-01 23:11 | XR ---
EXAMINATION TYPE: XR KUB DATE OF EXAM: 12/01/2021 COMPARISON: NONE HISTORY: Renal calculus TECHNIQUE: 2 views supine FINDINGS: There is no sign of intestinal obstruction or pneumoperitoneum. There is some gaseous diste ntion of large and small bowel. Lung bases are clear of consolidation. There is a 1.5 cm calculus ove r the right kidney. This calcifications over the left kidney. There are pelvic bilateral calcificatio ns. IMPRESSION: There is evidence for some mild intestinal ileus. No free air.
[2021-12-01] MEDS ORDERED: cefTRIAXone IN SWFI 1,000 MG/10 ML SYRINGE IVP STA (23:17)
[2021-12-01 23:47] VITALS: BP 146/77; PULSE 62; TEMP 98.3
== END 2021-12-02 00:06 | disposition home or self-care (01) ==
LOC: EC 18:29
DX: N20.0 Calculus of kidney (principal); J44.9 Chronic obstructive pulmonary disease, unspecified; I10 Essential (primary) hypertension; I25.2 Old myocardial infarction
CPT/HCPCS: 36415; 80053; 82150; 83605; 83690; 85025; 81001; 87086; 74018; 76770; 74176; 99284; 96374; 96375; 96376; 96361; J0696; J2270

== ENCOUNTER 2021-12-08 09:06 | Inpatient (IN) | payer MEDICARE ==
[2021-12-08] MEDS ORDERED: ONDANSETRON 4 MG/2 ML VIAL IVP STA (09:26)
[2021-12-08] MEDS ORDERED: SODIUM CHLORIDE 0.9% 1,000 ML IV STA (09:26)
--- NOTE | 2021-12-08 09:32 | ED ---
General Adult HPI - General Chief complaint: Nausea/Vomiting/Diarrhea Stated complaint: vomiting Time Seen by Provider: 12/08/21 09:12 Source: patient, family, RN notes reviewed, old records reviewed Mode of arrival: wheelchair Limitations: no limitations - History of Present Illness Initial comments: 80-year-old male presenting for evaluation of nausea vomiting. Patient has had approximately one week of nausea and vomiting. He states the primary much anything that he eats he vomits. He's got to the point where his unable to take his medication. He was diagnosed with obstructive kidney stone and is scheduled for urological procedure tomorrow. He has not had fever. He has had some minimal stool output from his colostomy. He denies pain complaints. Denies hematuria or dysuria. - Related Data Home Medications Medication Instructions Recorded Confirmed Atorvastatin [Lipitor] 40 mg PO HS 05/24/16 12/08/21 Amiodarone [Cordarone] 200 mg PO BID 06/13/21 12/08/21 Cholecalciferol [Vitamin D3 (25 50 mcg PO DAILY@1200 06/13/21 12/08/21 Mcg = 1000 Iu)] Clopidogrel [Plavix] 75 mg PO DAILY 06/13/21 12/08/21 Finasteride [Proscar] 5 mg PO DAILY 06/13/21 12/08/21 Metoprolol Tartrate [Lopressor] 12.5 mg PO BID 06/13/21 12/08/21 Sodium Bicarbonate Tab 650 mg PO TID 06/13/21 12/08/21 Tamsulosin [Flomax] 0.4 mg PO HS 06/13/21 12/08/21 Apixaban [Eliquis] 5 mg PO BID 07/16/21 12/08/21 Calcium Acetate 667 mg PO W/BRKFST 12/01/21 12/08/21 Spironolactone 12.5 mg PO DAILY 12/01/21 12/08/21 calcitrioL [Rocaltrol] 0.25 mcg PO WE@1200 12/01/21 12/08/21 Nitrofurantoin Macrocrystal 100 mg PO TID 12/07/21 12/08/21 [Nitrofurantoin] Docusate [Colace] 300 mg PO DAILY 12/08/21 12/08/21 Ondansetron Odt [Zofran Odt] 4 mg PO Q6H PRN 12/08/21 12/08/21 Previous Rx's Medication Instructions Recorded Cephalexin [Keflex] 500 mg PO Q6HR 10 Days #40 cap 12/01/21 HYDROcodone/APAP 5-325MG [[place] 1 tab PO Q6HR PRN 3 Days #12 tab 12/01/21 5-325] Allergies Allergy/AdvReac Type Severity Reaction Status Date / Time No Known Allergies Allergy Verified 12/08/21 10:29 Review of Systems ROS Statement: Those systems with pertinent positive or pertinent negative responses have been documented in the HPI. ROS Other: All systems not noted in ROS Statement are negative. Past Medical History Past Medical History: Coronary Artery Disease (CAD), Cancer, COPD, Deep Vein Thrombosis (DVT), Hyperlipidemia, Hypertension, Osteoarthritis (OA), Sleep Apnea/CPAP/BIPAP Additional Past Medical History / Comment(s): colon cancer, SKIN CANCER, colostomy, vertigo, kidney stones, states very nauseated currently, DVT 03/2021 left leg, not using CPAP, currently on Rx for UTI Last Myocardial Infarction Date:: 03/2021 History of Any Multi-Drug Resistant Organisms: None Reported Past Surgical History: Adenoidectomy, AICD, Bowel Resection, Cardiac Ablation, Heart Catheterization With Stent, Hernia Repair, Pacemaker, Tonsillectomy Additional Past Surgical History / Comment(s): colostomy, two cardiac stents, Past Anesthesia/Blood Transfusion Reactions: No Reported Reaction Date of Last Stent Placement:: 2020 Type of Cardiac Device: AICD Device Placement Date:: 04/01/2021 Past Psychological History: No Psychological Hx Reported Smoking Status: Never smoker - Past Family History Mother Family Medical History: Cancer Additional Family Medical History / Comment(s): Breast cancer. Father Additional Family Medical History / Comment(s): Valve replacement and pacemaker. Brother(s) Additional Family Medical History / Comment(s): CABG. General Exam Limitations: no limitations General appearance: alert, in no apparent distress Head exam: Present: atraumatic, normocephalic Eye exam: Present: normal appearance, PERRL ENT exam: Present: mucous membranes dry Neck exam: Present: normal inspection. Absent: tenderness, meningismus Respiratory exam: Present: normal lung sounds bilaterally. Absent: respiratory distress, wheezes Cardiovascular Exam: Present: regular rate, normal rhythm GI/Abdominal exam: Present: soft, other (Colostomy). Absent: distended, tenderness, guarding Extremities exam: Present: normal inspection, normal capillary refill Neurological exam: Present: alert, oriented X3 Psychiatric exam: Present: normal affect, normal mood Skin exam: Present: warm, dry, pallor Course Vital Signs 12/08/21 09:06 Temperature 97.5 F L Pulse Rate 84 Respiratory 18 Rate Blood Pressure 82/55 O2 Sat by Pulse 98 Oximetry Medical Decision Making - Medical Decision Making 80-year-old male presenting for evaluation of vomiting over the past 7 days. Patient is scheduled for urological procedure tomorrow for an obstructing renal calculus. He has had some abdominal pain although this is not his main complaint. His main complaint is nausea and vomiting. He's vomited innumerable times. He's had stool output as well as gas from his colostomy. His abdomen is soft nontender. Workup reveals a white blood cell count of 18.1, hemoglobin 12 .9. Sodium is 129. His potassium is 3.0. He has some mild worsening of chronic kidney disease with a creatinine of 2.39. CT does show small bowel obstruction as well as persistent left renal obstructing stone. I did order nasogastric tube in the emergency department. Started empiric antibiotics. Patient will be kept nothing by mouth, IV hydration. He'll be admitted to [place], Ashwin is aware. I have discussed case both with urology Dr. Burgess and with general surgery Dr. Bui - Lab Data Result diagrams: 12/08/21 10:33 12/08/21 10:33 Lab Results 12/08/21 12/08/21 12/08/21 Range/Units 10:33 10:33 10:33 WBC 18.1 H (3.8-10.6) k/uL RBC 4.06 L (4.30-5.90) m/uL Hgb 12.9 L (13.0-17.5) gm/dL Hct 38.1 L (39.0-53.0) % MCV 93.8 (80.0-100.0) fL MCH 31.6 (25.0-35.0) pg MCHC 33.7 (31.0-37.0) g/dL RDW 13.3 (11.5-15.5) % Plt Count 254 (150-450) k/uL MPV 8.3 Neutrophils % 88 % Lymphocytes % 5 % Monocytes % 6 % Eosinophils % 1 % Basophils % 0 % Neutrophils # 16.0 H (1.3-7.7) k/uL Lymphocytes # 0.8 L (1.0-4.8) k/uL Monocytes # 1.0 (0-1.0) k/uL Eosinophils # 0.1 (0-0.7) k/uL Basophils # 0.0 (0-0.2) k/uL PT 12.9 H (9.0-12.0) sec INR 1.2 H (<1.2) APTT 27.2 (22.0-30.0) sec Sodium 129 L (137-145) mmol/L Potassium 3.0 L (3.5-5.1) mmol/L Chloride 97 L (98-107) mmol/L Carbon Dioxide 19 L (22-30) mmol/L Anion Gap 13 mmol/L BUN 58 H (9-20) mg/dL Creatinine 2.39 H (0.66-1.25) mg/dL Est GFR (CKD-EPI)AfAm 29 (>60 ml/min/1.73 sqM) Est GFR (CKD-EPI)NonAf 25 (>60 ml/min/1.73 sqM) Glucose 100 H (74-99) mg/dL Plasma Lactic Acid Carloz (0.7-2.0) mmol/L Calcium 8.5 (8.4-10.2) mg/dL Total Bilirubin 1.1 (0.2-1.3) mg/dL AST 114 H (17-59) U/L ALT 185 H (4-49) U/L Alkaline Phosphatase 102 (38-126) U/L Total Protein 6.0 L (6.3-8.2) g/dL Albumin 3.3 L (3.5-5.0) g/dL Amylase 142 H (30-110) U/L Lipase 969 H (23-300) U/L 12/08/21 Range/Units 10:33 WBC (3.8-10.6) k/uL RBC (4.30-5.90) m/uL Hgb (13.0-17.5) gm/dL Hct (39.0-53.0) % MCV (80.0-100.0) fL MCH (25.0-35.0) pg MCHC (31.0-37.0) g/dL RDW (11.5-15.5) % Plt Count (150-450) k/uL MPV Neutrophils % % Lymphocytes % % Monocytes % % Eosinophils % % Basophils % % Neutrophils # (1.3-7.7) k/uL Lymphocytes # (1.0-4.8) k/uL Monocytes # (0-1.0) k/uL Eosinophils # (0-0.7) k/uL Basophils # (0-0.2) k/uL PT (9.0-12.0) sec INR (<1.2) APTT (22.0-30.0) sec Sodium (137-145) mmol/L Potassium (3.5-5.1) mmol/L Chloride (98-107) mmol/L Carbon Dioxide (22-30) mmol/L Anion Gap mmol/L BUN (9-20) mg/dL Creatinine (0.66-1.25) mg/dL Est GFR (CKD-EPI)AfAm (>60 ml/min/1.73 sqM) Est GFR (CKD-EPI)NonAf (>60 ml/min/1.73 sqM) Glucose (74-99) mg/dL Plasma Lactic Acid Carloz 1.5 (0.7-2.0) mmol/L Calcium (8.4-10.2) mg/dL Total Bilirubin (0.2-1.3) mg/dL AST (17-59) U/L ALT (4-49) U/L Alkaline Phosphatase (38-126) U/L Total Protein (6.3-8.2) g/dL Albumin (3.5-5.0) g/dL Amylase (30-110) U/L Lipase (23-300) U/L Disposition Clinical Impression: SHITAL (acute kidney injury), Dehydration, SBO (small bowel obstruction), Renal stone Disposition: ADMITTED IP TO THIS [facility] Condition: Stable Is patient prescribed a controlled substance at d/c from ED?: No Referrals: Denise Fay MD [Primary Care Provider] - 1-2 days Decision to Admit Reason: Admit from EC Decision Date: 12/08/21 Decision Time: 12:06
--- NOTE | 2021-12-08 10:05 | XR ---
EXAMINATION TYPE: XR KUB DATE OF EXAM: 12/08/2021 COMPARISON: NONE HISTORY: Pain TECHNIQUE: Single supine KUB image of the abdomen is obtained FINDINGS: There is a dilated small bowel measuring up to 6.4 cm. Suspect distal small bowel obstruction. CT rec ommended. No convincing evidence for pneumoperitoneum. No unusual calcifications. The lung bases are clear. The osseous structures are intact. IMPRESSION: 1. There is a dilated small bowel measuring up to 6.4 cm. Suspect distal small bowel obstruction. CT recommended.
[2021-12-08 10:48] LABS: Basophils % (A) 0 %; Eosinophils # (A) 0.1 k/uL (0-0.7); Eosinophils % (A) 1 %; HCT 38.1 % (39.0-53.0); HGB 12.9 gm/dL (13.0-17.5); Lymphocytes # (A) 0.8 k/uL (1.0-4.8); Lymphocytes % (A) 5 %; MCH 31.6 pg (25.0-35.0); MCHC 33.7 g/dL (31.0-37.0); MCV 93.8 fL (80.0-100.0); Mean Platelet Volume 8.3; Monocytes % (A) 6 %; Neutrophils % (A) 88 %; Platelet Count 254 k/uL (150-450); RBC 4.06 m/uL (4.30-5.90); RDW 13.3 % (11.5-15.5); WBC 18.1 k/uL (3.8-10.6)
[2021-12-08 10:57] LABS: INR 1.2 (<1.2); Partial Thromboplastin Time 27.2 sec (22.0-30.0); Prothrombin Time 12.9 sec (9.0-12.0)
[2021-12-08 11:10] LABS: Albumin 3.3 g/dL (3.5-5.0); Calcium 8.5 mg/dL (8.4-10.2); Total Bilirubin 1.1 mg/dL (0.2-1.3)
--- NOTE | 2021-12-08 11:25 | CT ---
EXAMINATION TYPE: CT abdomen pelvis wo con DATE OF EXAM: 12/08/2021 COMPARISON: CT dated 12/01/2021 HISTORY: Vomiting CT DLP: 593.6 mGycm Automated exposure control for dose reduction was used. TECHNIQUE: Helical acquisition of images was performed from the lung bases through the pelvis. No IV contrast demonstration. FINDINGS: LUNG BASES: Bilateral basal peripheral pulmonary reticulations and mild fibrotic changes. Suspected c ardiomegaly. LIVER/GB: Scattered tiny hepatic cysts, otherwise unremarkable liver by this nonenhanced CT scan. Few dependent calculi are seen within the gallbladder neck. No evidence of acute cholecystitis. Markedly distended gallbladder. PANCREAS: No significant abnormality is seen. SPLEEN: No significant abnormality is seen. ADRENALS: No significant abnormality is seen. KIDNEYS: Right lower pole 15 mm stone with adjacent parapelvic renal cyst versus dilated lower calyce al group. A few left renal calculi measuring up to 7 mm. Distal left ureteric obstructing calculi jayda suring 8 mm and 4 mm respectively, and causing moderate left-sided hydroureter and hydronephrosis. No definitive urinary bladder calculi. FREE AIR: No free air is visualized RETROPERITONEAL ADENOPATHY: None visualized REPRODUCTIVE ORGANS: The prostate is tethered posteriorly. PELVIC ADENOPATHY: None visualized. BOWEL: Sizable hiatal hernia containing the gastric fundus. Dilated remainder of the stomach, duoden um and almost all small bowel loops measuring up to 5 cm down to the known left parastomal hernia whe re a transition point is located. No evidence of pneumatosis, free peritoneal air or portal venous ga s however bowel ischemia cannot be excluded. Persistent presacral soft tissue thickening, underlying residual disease cannot be excluded. Further PET scan assessment can be considered. It is inseparable from the seminal vesicles and the prostate as well as the adjacent portion of the sacrum. Left lower quadrant colostomy demonstrating parastomal hernia. Thickening of the colonic wall just proximal to the hernia, underlying colitis cannot be excluded, please correlate clinically. The remainder of the colon demonstrates colonic diverticulosis. OTHER: Scattered arterial atherosclerotic calcifications. No sizable ascites. No aggressive bone lesi on. IMPRESSION: 1. Findings are consistent with acute high-grade mechanical small bowel obstruction with a transition point is seen in the left lower quadrant parastomal hernia as detailed above. Recommend surgical con sultation. No evidence of pneumatosis, free peritoneal air or portal venous gas however bowel ischemi a cannot be excluded. 2. Significant wall thickening of the colon just proximal to the colostomy with surrounding acute inf lammatory changes, underlying colitis or diverticulitis cannot be excluded, please correlate clinical ly. 3. Persistent left distal ureteric obstructing calculi with moderate left-sided hydroureter and hydro nephrosis. Other incidental findings as described above.
[2021-12-08] MEDS ORDERED: PIPERACILLIN-TAZOBACTAM 3.375 GM in SODIUM CHLORIDE 0.9% 100 ML IVPB STA (11:37)
[2021-12-08] MEDS ORDERED: NALOXONE 0.4 MG/ML 1 ML VIAL IV PRN (11:53)
[2021-12-08] MEDS ORDERED: ONDANSETRON 4 MG/2 ML VIAL IVP PRN (12:01)
[2021-12-08] MEDS ORDERED: HYDROmorphone 0.5 MG/0.5 ML SYRINGE IVP PRN (12:01)
--- NOTE | 2021-12-08 12:54 | XR ---
EXAMINATION TYPE: XR chest 1V confirm line [facility] DATE OF EXAM: 12/08/2021 HISTORY: NG tube COMPARISON: None. TECHNIQUE: Single view of the chest is submitted. FINDINGS: The NG tube demonstrates its distal tip within the distal esophagus and should be advanced. There is no evidence for focal infiltrate. The heart is stable. Hilar and mediastinal structures are within normal limits. Degenerative changes are seen of the dorsal spine. IMPRESSION: 1. The NG tube demonstrates its distal tip within the distal esophagus and should be advanced.
--- NOTE | 2021-12-08 14:11 | XR ---
EXAMINATION TYPE: XR chest 1V confirm line [facility] DATE OF EXAM: 12/08/2021 HISTORY: Shortness of breath. COMPARISON: Same day TECHNIQUE: Single view of the chest is submitted. FINDINGS: NG tube is coiled within the patient's hiatal hernia. There is no evidence for focal infiltrate. The heart is stable. Hilar and mediastinal structures are within normal limits. Degenerative changes are seen of the dorsal spine. IMPRESSION: 1. NG tube is coiled within the patient's hiatal hernia.
--- NOTE | 2021-12-08 14:51 | P.HPIM ---
History of Present Illness This is a 80-year-old male with a past medical history significant for colorectal cancer status post colostomy 21 years ago, coronary disease status post 2 stents, essential hypertension, hyperlipidemia, pacemaker, BPH and renal calculi that presents to the hospital complaining of intractable nausea and vomiting. This apparently started once in the progressively getting worse. He was apparently hospitalized on Monday and discharged home on antibiotics and Zofran which made his symptoms worsen he presented back to the hospital. He complains of no chest pain, shortness of breath or palpitations however he did notice decreased output in his colostomy. Patient was examined in the emergency department blood pressure slightly labile 107/60, afebrile, elevated white blood cell count 18.1, hemoglobin stable at 12.9, platelet count 254, electrolytes sodium 129, hypokalemic 3.0, and elevated creatinine at 2.39. Patient also does have transaminitis elevation. Lipase was also found to be elevated at 969. Computed tomography scan of abdomen and pelvis was completed which showed high- grade mechanical small bowel obstruction transition point at the left lower quadrant. Patient also has a left distal obstructing calculi with moderate left-sided hydroureter and hydronephrosis. Urology and general surgery was consulted. Patient was empirically started on IV antibiotics with Zosyn. Past Medical History Past Medical History: Coronary Artery Disease (CAD), Cancer, COPD, Deep Vein Thrombosis (DVT), Hyperlipidemia, Hypertension, Osteoarthritis (OA), Sleep Apnea/CPAP/BIPAP Additional Past Medical History / Comment(s): colon cancer, SKIN CANCER, colos sanjiv, vertigo, kidney stones, states very nauseated currently, DVT 03/2021 left leg, not using CPAP, currently on Rx for UTI Last Myocardial Infarction Date:: 03/2021 History of Any Multi-Drug Resistant Organisms: None Reported Past Surgical History: Adenoidectomy, AICD, Bowel Resection, Cardiac Ablation, Heart Catheterization With Stent, Hernia Repair, Pacemaker, Tonsillectomy Additional Past Surgical History / Comment(s): colostomy, two cardiac stents, Past Anesthesia/Blood Transfusion Reactions: No Reported Reaction Date of Last Stent Placement:: 2020 Type of Cardiac Device: AICD Device Placement Date:: 04/01/2021 Past Psychological History: No Psychological Hx Reported Smoking Status: Never smoker - Past Family History Mother Family Medical History: Cancer Additional Family Medical History / Comment(s): Breast cancer. Father Additional Family Medical History / Comment(s): Valve replacement and pacemaker. Brother(s) Additional Family Medical History / Comment(s): CABG. Medications and Allergies Home Medications Medication Instructions Recorded Confirmed Type Atorvastatin [Lipitor] 40 mg PO HS 05/24/16 12/08/21 History Amiodarone [Cordarone] 200 mg PO BID 06/13/21 12/08/21 History Cholecalciferol [Vitamin D3 (25 50 mcg PO DAILY@1200 06/13/21 12/08/21 History Mcg = 1000 Iu)] Clopidogrel [Plavix] 75 mg PO DAILY 06/13/21 12/08/21 History Finasteride [Proscar] 5 mg PO DAILY 06/13/21 12/08/21 History Metoprolol Tartrate [Lopressor] 12.5 mg PO BID 06/13/21 12/08/21 History Sodium Bicarbonate Tab 650 mg PO TID 06/13/21 12/08/21 History Tamsulosin [Flomax] 0.4 mg PO HS 06/13/21 12/08/21 History Apixaban [Eliquis] 5 mg PO BID 07/16/21 12/08/21 History Calcium Acetate 667 mg PO W/BRKFST 12/01/21 12/08/21 History Cephalexin [Keflex] 500 mg PO Q6HR 10 Days #40 cap 12/01/21 12/08/21 Rx HYDROcodone/APAP 5-325MG [[place] 1 tab PO Q6HR PRN 3 Days #12 tab 12/01/21 12/08/21 Rx 5-325] Spironolactone 12.5 mg PO DAILY 12/01/21 12/08/21 History calcitrioL [Rocaltrol] 0.25 mcg PO WE@1200 12/01/21 12/08/21 History Nitrofurantoin Macrocrystal 100 mg PO TID 12/07/21 12/08/21 History [Nitrofurantoin] Docusate [Colace] 300 mg PO DAILY 12/08/21 12/08/21 History Ondansetron Odt [Zofran Odt] 4 mg PO Q6H PRN 12/08/21 12/08/21 History Allergies Allergy/AdvReac Type Severity Reaction Status Date / Time No Known Allergies Allergy Verified 12/08/21 10:29 Physical Exam Vitals: Vital Signs Temp Pulse Resp BP Pulse Ox 12/08/21 12:29 81 18 107/60 97 12/08/21 09:06 97.5 F L 84 18 82/55 98 Intake and Output 12/07/21 12/08/21 12/08/21 22:59 06:59 14:59 Other: Weight 77.564 kg Gen. patient is slightly uncomfortable however awake alert oriented 3 Cardiovascular normal S1/S2 no murmurs or rubs heard Respiratory no wheezing or rhonchi appreciated Abdomen decreased bowel sounds, slightly tender on deep palpation patient does also have a colostomy Neuro patient is awake alert oriented 3 Psych good spirits. ENT patient has NG tube in place or not. Results CBC & Chem 7: 12/08/21 10:33 12/08/21 10:33 Labs: Abnormal Lab Results - Last 24 Hours (Table) 12/08/21 12/08/21 12/08/21 Range/Units 10:33 10:33 10:33 WBC 18.1 H (3.8-10.6) k/uL RBC 4.06 L (4.30-5.90) m/uL Hgb 12.9 L (13.0-17.5) gm/dL Hct 38.1 L (39.0-53.0) % Neutrophils # 16.0 H (1.3-7.7) k/uL Lymphocytes # 0.8 L (1.0-4.8) k/uL PT 12.9 H (9.0-12.0) sec INR 1.2 H (<1.2) Sodium 129 L (137-145) mmol/L Potassium 3.0 L (3.5-5.1) mmol/L Chloride 97 L (98-107) mmol/L Carbon Dioxide 19 L (22-30) mmol/L BUN 58 H (9-20) mg/dL Creatinine 2.39 H (0.66-1.25) mg/dL Glucose 100 H (74-99) mg/dL AST 114 H (17-59) U/L ALT 185 H (4-49) U/L Total Protein 6.0 L (6.3-8.2) g/dL Albumin 3.3 L (3.5-5.0) g/dL Amylase 142 H (30-110) U/L Lipase 969 H (23-300) U/L Assessment and Plan Assessment: Assessment: #1 sepsis secondary to urinary company urinary tract infection #2 small bowel obstruction can be secondary to underlying adhesions versus parastomal hernia? #3 coronary disease status post stent 2 #4 hyperlipidemia #5 essential hypertension #6 hyponatremia most likely related to dehydration #7 electrode abnormality secondary to above #8 CKD Secondary to Dehydration/Prerenal #9 transaminitis can be secondary to sepsis Plan: -Admit to medicine for close monitoring -Aspiration/fall precaution/[id number] -IV rocephin and flagyl -Pending evaluation by urology -Continue with IV fluids -Continue sepsis protocol, obtain blood cultures continue with broad-spectrum antibiotics and monitor hemodynamics closely -We'll also obtain urine culture secondary to pelvic UTI -Replace electrolyte when necessary -Continue to monitor LFTs obtain right upper quadrant ultrasound if it doesnt trend down -DVT prophylaxis heparin 3 times a day
--- NOTE | 2021-12-08 16:55 | P.GSCN ---
History of Present Illness Consult date: 12/08/21 History of present illness: CHIEF COMPLAINT: Nausea and vomiting HISTORY OF PRESENT ILLNESS: This is a 80-year-old male who presented to the ER with complaints of nausea and vomiting 1 week. He is unable to keep anything down and is unable to take his medication. He was diagnosed with obstructive kidney stone and was scheduled for urological procedure tomorrow. Also having minimal stool output through his colostomy. Does report abdominal pain. Denies any fever chills or sweats. Patient has computed tomography scan of abdomen and pelvis consistent with an acute high-grade mechanical small bowel obstruction with a transition point seen in the left lower quadrant peristomal hernia. Patient does have prior history of colon cancer with bowel resection and Yaneth replacement 21 years ago. Patient seen and examined with Dr. velarde PAST MEDICAL HISTORY: Coronary Artery Disease (CAD), Diabetes Mellitus, GERD/Reflux, Hypertension, Renal Disease, colon cancer DVT leg PAST SURGICAL HISTORY: adenoidectomy, AICD, Bowel Resection, Cardiac Ablation, Heart Catheterization With Stent, Hernia Repair, Pacemaker, Tonsillectomy MEDICATIONS: See list. ALLERGIES: See list. SOCIAL HISTORY: No illicit drug use. REVIEW OF SYSTEMS: CONSTITUTIONAL: Denies fever or chills. HEENT: Denies blurred vision, vision changes, or eye pain. Denies hemoptysis CARDIOVASCULAR: Denies chest pain or pressure. RESPIRATORY: No shortness of breath. GASTROINTESTINAL: See HPI for pertinent findings HEMATOLOGIC: Denies bleeding disorders. GENITOURINARY: Denies any blood in urine or increased urinary frequency. SKIN: Denies pruitis. Denies rash. PHYSICAL EXAM: VITAL SIGNS: Reviewed GENERAL: Well-developed in no acute distress. HEENT: No sclera icterus. Extraocular movements grossly intact. Moist buccal mucosa. Head is atraumatic, normocephalic. No nasal drainage. ABDOMEN: Soft. Distended. Colostomy bag with air present no stool NEUROLOGIC: Alert and oriented. Cranial nerves II through XII grossly intact. LABORATORY DATA: WBC is 18.1 hemoglobin 12.9 platelets 254 INR 1.2 Sodium 129 potassium 3.0 creatinine 2.39 Lactic acid 1.5 LFTs elevated Lipase 969 IMAGING: Computed tomography scan abdomen and pelvis findings are consistent with a high-grade mechanical small bowel obstruction with a transition point seen in the left lower quadrant peristomal hernia. Recommend surgical consultation. No evidence of pneumatosis, free peritoneal air or portal venous gas however bowel ischemia cannot be excluded. Significant wall thickening of the colon just proximal to the colostomy with surrounding acute inflammatory changes, underlying colitis or diverticulitis cannot be excluded please correlate clinically. Persistent left distal ureter obstructing calculi with moderate left-sided hydroureter and hydronephrosis. ASSESSMENT: 1. High-grade small bowel obstruction secondary to parastomal hernia 2. Persistent left distal ureteral obstructing calculi with moderate left-sided hydroureter and hydronephrosis. Followed by urology 3. Cholelithiasis seen within the gallbladder neck. No evidence of acute cholecystitis. Markedly distended gallbladder noted on CAT scan 4. Elevated LFTs and elevated lipase 5. Hyponatremia and hypokalemia PLAN: -Patient scheduled for exploratory laparotomy and repair of parastomal hernia for tomorrow 12/09/[address] velarde -NG tube placed for decompression -Keep patient nothing by mouth -Continue IV fluids -Potassium replaced -Hyponatremia management per medicine service Thank you for this consultation Physician Resource Efficiency Manager note has been reviewed by physician. Signing provider agrees with the documented findings, assessment, and plan of care. Past Medical History Past Medical History: Coronary Artery Disease (CAD), Cancer, COPD, Deep Vein Thrombosis (DVT), Hyperlipidemia, Hypertension, Osteoarthritis (OA), Sleep Apnea/CPAP/BIPAP Additional Past Medical History / Comment(s): colon cancer, SKIN CANCER, colostomy, vertigo, kidney stones, states very nauseated currently, DVT 03/2021 left leg, not using CPAP, currently on Rx for UTI Last Myocardial Infarction Date:: 03/2021 History of Any Multi-Drug Resistant Organisms: None Reported Past Surgical History: Adenoidectomy, AICD, Bowel Resection, Cardiac Ablation, Heart Catheterization With Stent, Hernia Repair, Pacemaker, Tonsillectomy Additional Past Surgical History / Comment(s): colostomy, two cardiac stents, Past Anesthesia/Blood Transfusion Reactions: No Reported Reaction Additional Past Anesthesia/Blood Transfusion Reaction / Comm: Pt received blood in the past without reaction. Date of Last Stent Placement:: 2020 Type of Cardiac Device: AICD Device Placement Date:: 04/01/2021 Past Psychological History: No Psychological Hx Reported Smoking Status: Never smoker - Past Family History Mother Family Medical History: Cancer Additional Family Medical History / Comment(s): Breast cancer. Father Additional Family Medical History / Comment(s): Valve replacement and pacemaker. Brother(s) Family Medical History: Coronary Artery Disease (CAD) Additional Family Medical History / Comment(s): CABG. Medications and Allergies Home Medications Medication Instructions Recorded Confirmed Type Atorvastatin [Lipitor] 40 mg PO HS 05/24/16 12/08/21 History Amiodarone [Cordarone] 200 mg PO BID 06/13/21 12/08/21 History Cholecalciferol [Vitamin D3 (25 50 mcg PO DAILY@1200 06/13/21 12/08/21 History Mcg = 1000 Iu)] Clopidogrel [Plavix] 75 mg PO DAILY 06/13/21 12/08/21 History Finasteride [Proscar] 5 mg PO DAILY 06/13/21 12/08/21 History Metoprolol Tartrate [Lopressor] 12.5 mg PO BID 06/13/21 12/08/21 History Sodium Bicarbonate Tab 650 mg PO TID 06/13/21 12/08/21 History Tamsulosin [Flomax] 0.4 mg PO HS 06/13/21 12/08/21 History Apixaban [Eliquis] 5 mg PO BID 07/16/21 12/08/21 History Calcium Acetate 667 mg PO W/BRKFST 12/01/21 12/08/21 History Cephalexin [Keflex] 500 mg PO Q6HR 10 Days #40 cap 12/01/21 12/08/21 Rx HYDROcodone/APAP 5-325MG [[place] 1 tab PO Q6HR PRN 3 Days #12 tab 12/01/21 12/08/21 Rx 5-325] Spironolactone 12.5 mg PO DAILY 12/01/21 12/08/21 History calcitrioL [Rocaltrol] 0.25 mcg PO WE@1200 12/01/21 12/08/21 History Nitrofurantoin Macrocrystal 100 mg PO TID 12/07/21 12/08/21 History [Nitrofurantoin] Docusate [Colace] 300 mg PO DAILY 12/08/21 12/08/21 History Ondansetron Odt [Zofran Odt] 4 mg PO Q6H PRN 12/08/21 12/08/21 History Allergies Allergy/AdvReac Type Severity Reaction Status Date / Time No Known Allergies Allergy Verified 12/08/21 10:29 Surgical - Exam Vital Signs Temp Pulse Resp BP Pulse Ox 97.5 F L 84 18 82/55 98 12/08/21 09:06 12/08/21 09:06 12/08/21 09:06 12/08/21 09:06 12/08/21 09:06 Results - Labs 12/08/21 10:33 12/08/21 10:33 Abnormal Lab Results - Last 24 Hours (Table) 12/08/21 12/08/21 12/08/21 Range/Units 10:33 10:33 10:33 WBC 18.1 H (3.8-10.6) k/uL RBC 4.06 L (4.30-5.90) m/uL Hgb 12.9 L (13.0-17.5) gm/dL Hct 38.1 L (39.0-53.0) % Neutrophils # 16.0 H (1.3-7.7) k/uL Lymphocytes # 0.8 L (1.0-4.8) k/uL PT 12.9 H (9.0-12.0) sec INR 1.2 H (<1.2) Sodium 129 L (137-145) mmol/L Potassium 3.0 L (3.5-5.1) mmol/L Chloride 97 L (98-107) mmol/L Carbon Dioxide 19 L (22-30) mmol/L BUN 58 H (9-20) mg/dL Creatinine 2.39 H (0.66-1.25) mg/dL Glucose 100 H (74-99) mg/dL AST 114 H (17-59) U/L ALT 185 H (4-49) U/L Total Protein 6.0 L (6.3-8.2) g/dL Albumin 3.3 L (3.5-5.0) g/dL Amylase 142 H (30-110) U/L Lipase 969 H (23-300) U/L Diabetes panel 12/08/21 Range/Units 10:33 Sodium 129 L (137-145) mmol/L Potassium 3.0 L (3.5-5.1) mmol/L Chloride 97 L (98-107) mmol/L Carbon Dioxide 19 L (22-30) mmol/L BUN 58 H (9-20) mg/dL Creatinine 2.39 H (0.66-1.25) mg/dL Glucose 100 H (74-99) mg/dL Calcium 8.5 (8.4-10.2) mg/dL AST 114 H (17-59) U/L ALT 185 H (4-49) U/L Alkaline Phosphatase 102 (38-126) U/L Total Protein 6.0 L (6.3-8.2) g/dL Albumin 3.3 L (3.5-5.0) g/dL Calcium panel 12/08/21 Range/Units 10:33 Calcium 8.5 (8.4-10.2) mg/dL Albumin 3.3 L (3.5-5.0) g/dL Pituitary panel 12/08/21 Range/Units 10:33 Sodium 129 L (137-145) mmol/L Potassium 3.0 L (3.5-5.1) mmol/L Chloride 97 L (98-107) mmol/L Carbon Dioxide 19 L (22-30) mmol/L BUN 58 H (9-20) mg/dL Creatinine 2.39 H (0.66-1.25) mg/dL Glucose 100 H (74-99) mg/dL Calcium 8.5 (8.4-10.2) mg/dL Adrenal panel 12/08/21 Range/Units 10:33 Sodium 129 L (137-145) mmol/L Potassium 3.0 L (3.5-5.1) mmol/L Chloride 97 L (98-107) mmol/L Carbon Dioxide 19 L (22-30) mmol/L BUN 58 H (9-20) mg/dL Creatinine 2.39 H (0.66-1.25) mg/dL Glucose 100 H (74-99) mg/dL Calcium 8.5 (8.4-10.2) mg/dL Total Bilirubin 1.1 (0.2-1.3) mg/dL AST 114 H (17-59) U/L ALT 185 H (4-49) U/L Alkaline Phosphatase 102 (38-126) U/L Total Protein 6.0 L (6.3-8.2) g/dL Albumin 3.3 L (3.5-5.0) g/dL
[2021-12-08] MEDS: metroNIDAZOLE-NS PMX 500 MG in SALINE 1 100ML.BAG IVPB SCH (17:02)
[2021-12-08] MEDS: SODIUM CHLORIDE 0.9% 1,000 ML IV SCH (17:04)
--- NOTE | 2021-12-08 17:07 | P.GSCN ---
History of Present Illness Consult date: 12/08/21 Reason for Consult: Left ureteral stone History of present illness: This is an 80-year-old male that presented to the hospital with intractable nausea and vomiting and abdominal pain, and minimal stool output from his ostomy. He underwent a CT abdomen and pelvis which was consistent with a high- grade bowel obstruction. Of note he has history of left-sided ureteral stone, He is scheduled to undergo left-sided ureteroscopy with Dr. Cool tomorrow. He denies any flank pain, gross hematuria or dysuria. Denies any fevers or chills. CT showed 2 distal ureteral stones along the left side, the largest measuring 8 mm. Additionally he has bilateral nonobstructing renal stones. He indicated his pain is mainly focused in the right lower quadrant, Review of Systems - Constitutional Denies fever, Denies weight loss - Cardiovascular Denies chest pain, Denies shortness of breath - Respiratory Denies cough, Denies 7 - Gastrointestinal Reports abdominal pain, Reports nausea, Reports vomiting - Genitourinary Denies dysuria, Denies flank pain - Neurological Denies headaches, Denies syncope Past Medical History Past Medical History: Coronary Artery Disease (CAD), Cancer, COPD, Deep Vein Thrombosis (DVT), Hyperlipidemia, Hypertension, Osteoarthritis (OA), Sleep Apnea/CPAP/BIPAP Additional Past Medical History / Comment(s): colon cancer, SKIN CANCER, colostomy, vertigo, kidney stones, states very nauseated currently, DVT 03/2021 left leg, not using CPAP, currently on Rx for UTI Last Myocardial Infarction Date:: 03/2021 History of Any Multi-Drug Resistant Organisms: None Reported Past Surgical History: Adenoidectomy, AICD, Bowel Resection, Cardiac Ablation, Heart Catheterization With Stent, Hernia Repair, Pacemaker, Tonsillectomy Additional Past Surgical History / Comment(s): colostomy, two cardiac stents, Past Anesthesia/Blood Transfusion Reactions: No Reported Reaction Additional Past Anesthesia/Blood Transfusion Reaction / Comm: Pt received blood in the past without reaction. Date of Last Stent Placement:: 2020 Type of Cardiac Device: AICD Device Placement Date:: 04/01/2021 Past Psychological History: No Psychological Hx Reported Smoking Status: Never smoker - Past Family History Mother Family Medical History: Cancer Additional Family Medical History / Comment(s): Breast cancer. Father Additional Family Medical History / Comment(s): Valve replacement and pacemaker. Brother(s) Family Medical History: Coronary Artery Disease (CAD) Additional Family Medical History / Comment(s): CABG. Medications and Allergies Home Medications Medication Instructions Recorded Confirmed Type Atorvastatin [Lipitor] 40 mg PO HS 05/24/16 12/08/21 History Amiodarone [Cordarone] 200 mg PO BID 06/13/21 12/08/21 History Cholecalciferol [Vitamin D3 (25 50 mcg PO DAILY@1200 06/13/21 12/08/21 History Mcg = 1000 Iu)] Clopidogrel [Plavix] 75 mg PO DAILY 06/13/21 12/08/21 History Finasteride [Proscar] 5 mg PO DAILY 06/13/21 12/08/21 History Metoprolol Tartrate [Lopressor] 12.5 mg PO BID 06/13/21 12/08/21 History Sodium Bicarbonate Tab 650 mg PO TID 06/13/21 12/08/21 History Tamsulosin [Flomax] 0.4 mg PO HS 06/13/21 12/08/21 History Apixaban [Eliquis] 5 mg PO BID 07/16/21 12/08/21 History Calcium Acetate 667 mg PO W/BRKFST 12/01/21 12/08/21 History Cephalexin [Keflex] 500 mg PO Q6HR 10 Days #40 cap 12/01/21 12/08/21 Rx HYDROcodone/APAP 5-325MG [[place] 1 tab PO Q6HR PRN 3 Days #12 tab 12/01/21 12/08/21 Rx 5-325] Spironolactone 12.5 mg PO DAILY 12/01/21 12/08/21 History calcitrioL [Rocaltrol] 0.25 mcg PO WE@1200 12/01/21 12/08/21 History Nitrofurantoin Macrocrystal 100 mg PO TID 12/07/21 12/08/21 History [Nitrofurantoin] Docusate [Colace] 300 mg PO DAILY 12/08/21 12/08/21 History Ondansetron Odt [Zofran Odt] 4 mg PO Q6H PRN 12/08/21 12/08/21 History Allergies Allergy/AdvReac Type Severity Reaction Status Date / Time No Known Allergies Allergy Verified 12/08/21 10:29 Surgical - Exam Vital Signs Temp Pulse Resp BP Pulse Ox 97.5 F L 84 18 82/55 98 12/08/21 09:06 12/08/21 09:06 12/08/21 09:06 12/08/21 09:06 12/08/21 09:06 - General moderate distress, moderate pain - Eyes normal ocular movement, no pale - ENT normal nares, normal mucosa - Respiratory normal expansion, normal respiratory effort - Abdomen Abdomen: soft, tender, distended - Psychiatric oriented to time, oriented to person, oriented to place Results - Labs 12/08/21 10:33 12/08/21 10:33 Abnormal Lab Results - Last 24 Hours (Table) 12/08/21 12/08/21 12/08/21 Range/Units 10:33 10:33 10:33 WBC 18.1 H (3.8-10.6) k/uL RBC 4.06 L (4.30-5.90) m/uL Hgb 12.9 L (13.0-17.5) gm/dL Hct 38.1 L (39.0-53.0) % Neutrophils # 16.0 H (1.3-7.7) k/uL Lymphocytes # 0.8 L (1.0-4.8) k/uL PT 12.9 H (9.0-12.0) sec INR 1.2 H (<1.2) Sodium 129 L (137-145) mmol/L Potassium 3.0 L (3.5-5.1) mmol/L Chloride 97 L (98-107) mmol/L Carbon Dioxide 19 L (22-30) mmol/L BUN 58 H (9-20) mg/dL Creatinine 2.39 H (0.66-1.25) mg/dL Glucose 100 H (74-99) mg/dL AST 114 H (17-59) U/L ALT 185 H (4-49) U/L Total Protein 6.0 L (6.3-8.2) g/dL Albumin 3.3 L (3.5-5.0) g/dL Amylase 142 H (30-110) U/L Lipase 969 H (23-300) U/L Diabetes panel 12/08/21 Range/Units 10:33 Sodium 129 L (137-145) mmol/L Potassium 3.0 L (3.5-5.1) mmol/L Chloride 97 L (98-107) mmol/L Carbon Dioxide 19 L (22-30) mmol/L BUN 58 H (9-20) mg/dL Creatinine 2.39 H (0.66-1.25) mg/dL Glucose 100 H (74-99) mg/dL Calcium 8.5 (8.4-10.2) mg/dL AST 114 H (17-59) U/L ALT 185 H (4-49) U/L Alkaline Phosphatase 102 (38-126) U/L Total Protein 6.0 L (6.3-8.2) g/dL Albumin 3.3 L (3.5-5.0) g/dL Calcium panel 12/08/21 Range/Units 10:33 Calcium 8.5 (8.4-10.2) mg/dL Albumin 3.3 L (3.5-5.0) g/dL Pituitary panel 12/08/21 Range/Units 10:33 Sodium 129 L (137-145) mmol/L Potassium 3.0 L (3.5-5.1) mmol/L Chloride 97 L (98-107) mmol/L Carbon Dioxide 19 L (22-30) mmol/L BUN 58 H (9-20) mg/dL Creatinine 2.39 H (0.66-1.25) mg/dL Glucose 100 H (74-99) mg/dL Calcium 8.5 (8.4-10.2) mg/dL Adrenal panel 12/08/21 Range/Units 10:33 Sodium 129 L (137-145) mmol/L Potassium 3.0 L (3.5-5.1) mmol/L Chloride 97 L (98-107) mmol/L Carbon Dioxide 19 L (22-30) mmol/L BUN 58 H (9-20) mg/dL Creatinine 2.39 H (0.66-1.25) mg/dL Glucose 100 H (74-99) mg/dL Calcium 8.5 (8.4-10.2) mg/dL Total Bilirubin 1.1 (0.2-1.3) mg/dL AST 114 H (17-59) U/L ALT 185 H (4-49) U/L Alkaline Phosphatase 102 (38-126) U/L Total Protein 6.0 L (6.3-8.2) g/dL Albumin 3.3 L (3.5-5.0) g/dL Assessment and Plan Assessment: 80-year-old male admitted to the hospital with small bowel obstruction. History of a 8mm and a 3 mm left distal stone. He is asymptomatic from his stone, but has significant abdominal pain and distention secondary to his bowel obstruction. Plan for Ex-Lap by general surgery tomorrow . He is currently nothing by mouth with NG tube in place. -He will undergo Left ureteral stent placement tomorrow by Dr Cool rather than a ureteroscopy, given his bowel obstruction
[2021-12-08] MEDS: POTASSIUM CHLORIDE 10 MEQ in WATER FOR INJECTION 1 100ML.BAG IVPB SCH ×2 (19:13→23:23)
[2021-12-08 19:27] LABS: Appearance,Urine Cloudy (Clear); Bacteria,Urine Occasional /hpf; Bilirubin,Urine Negative (Negative); Blood,Urine Large (Negative); Color,Urine Yellow; Glucose,Urine (UA) Negative (Negative); Hyaline Casts,Urine 1 /lpf (0-2); Ketones,Urine Negative (Negative); Leukocyte Esterase,Urine Large (Negative); Mucus,Urine Occasional /hpf; Nitrite,Urine Positive (Negative); PH, Urine 5.5 (5.0-8.0); Protein,Urine Trace (Negative); RBC,Urine 7 /hpf (0-5); Specific Gravity,Urine 1.017 (1.001-1.035); Squamous Epithelial Cell,Urine 2 /hpf (0-4); Urobilinogen,Urine <2.0 mg/dL (<2.0); WBC,Urine 114 /hpf (0-5)
--- NOTE | 2021-12-08 21:21 | XR ---
EXAMINATION TYPE: XR chest 1V DATE OF EXAM: 12/08/2021 COMPARISON: Same-day HISTORY: 2 placement TECHNIQUE: Single frontal view of the chest is obtained. FINDINGS: There is redemonstration of nasogastric tube with tip overlying the gastroesophageal junct ion. There is persistent mild bibasilar opacity. Right lower lobe nodular opacity, not seen on previo us study and most likely nipple shadow. No significant pleural effusion, or pneumothorax seen. The c ardiac silhouette size is within normal limits. The osseous structures are intact. Stable left AICD . IMPRESSION: NG tube with tip overlying the GE junction. Recommend advancing at least 4 to 5 cm. Additional findings as above.
[2021-12-08] MEDS: TAMSULOSIN 0.4 MG CAP.ER.24H PO SCH (22:22)
[2021-12-08] MEDS: ATORVASTATIN 40 MG TAB PO SCH (22:23)
[2021-12-08] MEDS: METOPROLOL TARTRATE 12.5 MG TAB PO SCH (22:23)
[2021-12-08] MEDS: AMIODARONE 200 MG TAB PO SCH (22:23)
[2021-12-09] MEDS: metroNIDAZOLE-NS PMX 500 MG in SALINE 1 100ML.BAG IVPB SCH ×3 (00:44→16:01)
[2021-12-09] MEDS: SODIUM CHLORIDE 0.9% 1,000 ML IV SCH ×3 (00:48→10:20)
[2021-12-09] MEDS: POTASSIUM CHLORIDE 10 MEQ in WATER FOR INJECTION 1 100ML.BAG IVPB SCH ×2 (02:10→04:35)
[2021-12-09 07:03] LABS: HCT 37.7 % (39.0-53.0); HGB 12.2 gm/dL (13.0-17.5); MCH 32.6 pg (25.0-35.0); MCHC 32.5 g/dL (31.0-37.0); MCV 100.2 fL (80.0-100.0); RBC 3.76 m/uL (4.30-5.90); RDW 13.9 % (11.5-15.5); WBC 17.6 k/uL (3.8-10.6)
[2021-12-09 07:04] LABS: Platelet Count 237 k/uL (150-450)
[2021-12-09 07:08] LABS: ALT 237 U/L (4-49); African American GFR (CKD) 40 (>60 ml/min/1.73 sqM); Albumin 2.4 g/dL (3.5-5.0); Albumin/Globulin Ratio 0.9; Anion Gap 10 mmol/L; Blood Urea Nitrogen 45 mg/dL (9-20); Calcium 7.5 mg/dL (8.4-10.2); Carbon Dioxide 14 mmol/L (22-30); Chloride 108 mmol/L (98-107); Globulin 2.7 g/dL; Glucose 69 mg/dL (74-99); Non-African American GFR(CKD) 35 (>60 ml/min/1.73 sqM); Sodium 132 mmol/L (137-145); Total Bilirubin 1.1 mg/dL (0.2-1.3); Total Protein 5.1 g/dL (6.3-8.2)
[2021-12-09 07:24] LABS: AST 142 U/L (17-59); Alkaline Phosphatase 72 U/L (38-126); Magnesium 2.1 mg/dL (1.6-2.3); Phosphorus 3.7 mg/dL (2.5-4.5)
[2021-12-09 07:27] LABS: Band Neutrophils % 8 %; Lymphocytes # (M) 1.41 k/uL (1.0-4.8); Metamyelocytes # (M) 0.35 k/uL (0); Metamyelocytes % 2 %; Monocytes # (M) 0.53 k/uL (0-1.0); Neutrophils % (M) 79 %; Nucleated Red Blood Cells 0 /100 WBC (0-0); Total Cells Counted 100
[2021-12-09] MEDS: FINASTERIDE 5 MG TAB PO SCH (07:56)
[2021-12-09] MEDS: SPIRONOLACTONE 25 MG TAB PO SCH (07:56)
[2021-12-09] MEDS: METOPROLOL TARTRATE 12.5 MG TAB PO SCH (07:56)
[2021-12-09] MEDS: AMIODARONE 200 MG TAB PO SCH (07:56)
[2021-12-09] MEDS ORDERED: CLOPIDOGREL 75 MG TAB PO SCH (09:00)
--- NOTE | 2021-12-09 12:51 | P.PN ---
Subjective Patient was examined at bedside today not complaining of any new symptomatology. Abdominal pain is slightly improved continues to have NG tube in place. Continues complaining of intractable pain however better than yesterday currently a 01/09. Objective - Vital Signs Vital signs: Vital Signs Temp 98 F 12/09/21 12:17 Pulse 58 L 12/09/21 12:17 Resp 18 12/09/21 12:17 BP 110/56 12/09/21 12:17 Pulse Ox 97 12/09/21 12:17 Intake & Output 12/08/21 12/09/21 12/09/21 18:59 06:59 18:59 Intake Total 200 1660 Balance 200 1660 Weight 77.564 kg Intake: Intake, IV Titration 200 1660 Amount Sodium Chloride 0.9% 1, 1560 000 ml @ 130 mls/hr IV . Q7H42M [facility] Rx#:[id number] metroNIDAZOLE-NS PMX 500 200 100 mg In Saline 1 100ml.bag @ 100 mls/hr IVPB Q8HR [facility] Rx#:[id number] Other: Voiding Method Urinal Urinal # Voids 3 - Labs CBC & Chem 7: 12/09/21 06:19 12/09/21 06:19 Labs: Abnormal Lab Results - Last 24 Hours (Table) 12/08/21 12/09/21 12/09/21 Range/Units 18:35 06:19 06:19 WBC 17.6 H (3.8-10.6) k/uL RBC 3.76 L (4.30-5.90) m/uL Hgb 12.2 L (13.0-17.5) gm/dL Hct 37.7 L (39.0-53.0) % MCV 100.2 H D (80.0-100.0) fL Neutrophils # (Manual) 15.30 H (1.3-7.7) k/uL Metamyelocytes # (Man) 0.35 H (0) k/uL Sodium 132 L (137-145) mmol/L Chloride 108 H (98-107) mmol/L Carbon Dioxide 14 L (22-30) mmol/L BUN 45 H (9-20) mg/dL Creatinine 1.81 H (0.66-1.25) mg/dL Glucose 69 L (74-99) mg/dL Calcium 7.5 L (8.4-10.2) mg/dL AST 142 H (17-59) U/L ALT 237 H (4-49) U/L Total Protein 5.1 L (6.3-8.2) g/dL Albumin 2.4 L (3.5-5.0) g/dL Urine Protein Trace H (Negative) Urine Blood Large H (Negative) Ur Leukocyte Esterase Large H (Negative) Urine RBC 7 H (0-5) /hpf Urine WBC 114 H (0-5) /hpf Urine Bacteria Occasional H (None) /hpf Urine Mucus Occasional H (None) /hpf Microbiology - Last 24 Hours (Table) 12/08/21 18:35 Urine Culture - Preliminary Urine,Voided Assessment and Plan Assessment: Assessment: #1 sepsis secondary to urinary company urinary tract infection #2 small bowel obstruction can be secondary to underlying adhesions versus parastomal hernia? #3 coronary disease status post stent 2 #4 hyperlipidemia #5 essential hypertension #6 hyponatremia most likely related to dehydration #7 electrode abnormality secondary to above #8 CKD Secondary to Dehydration/Prerenal #9 transaminitis can be secondary to sepsis Plan: -Admit to medicine for close monitoring -Aspiration/fall precaution/hob30 -IV rocephin and flagyl -Neurology anticipating stent placement most likely. -Continue with IV fluids -Continue sepsis protocol, obtain blood cultures continue with broad-spectrum antibiotics and monitor hemodynamics closely -We'll also obtain urine culture secondary to UTI -Replace electrolyte when necessary -Continue to monitor LFTs obtain right upper quadrant ultrasound if it doesnt trend down -DVT prophylaxis heparin 3 times a day
[2021-12-09] MEDS ORDERED: HYDROmorphone 0.5 MG/0.5 ML SYRINGE IVP ONE (21:00)
[2021-12-09] MEDS ORDERED: SUCCINYLCHOLINE CHLORIDE 100 MG/5 ML SYR IV ONE (21:17)
[2021-12-09] MEDS ORDERED: PHENYLEPHRINE-0.9% NACL SYG 1,000 MCG/10 ML SYRINGE ONE (21:17)
[2021-12-09] MEDS ORDERED: fentaNYL (PF) 50 MCG/ML 2 ML AMP ONE (21:17)
[2021-12-09] MEDS ORDERED: GLYCOPYRROLATE 0.2 MG/ML 2 ML VIAL ONE (21:17)
[2021-12-09] MEDS ORDERED: ROCURONIUM 10 MG/ML (5 ML VIAL) IV ONE (21:17)
[2021-12-09] MEDS ORDERED: NEOSTIGMINE 1 MG/ML 10 ML VIAL ONE (21:17)
[2021-12-09] MEDS ORDERED: ePHEDrine 50 MG/ML 1 ML VIAL ONE (21:17)
[2021-12-09] MEDS ORDERED: LIDOCAINE 1% INJ 10MG/ML (20 ML MDV) ONE (21:17)
[2021-12-09] MEDS ORDERED: PROPOFOL 10 MG/ML 20 ML VIAL IV ONE (21:17)
[2021-12-09] MEDS ORDERED: LACTATED RINGERS 1,000 ML IV ONE ×2 (21:20→23:26)
[2021-12-09] MEDS ORDERED: SODIUM CHLORIDE 0.9% 50 ML with ceFAZolin 2,000 MG IV ONE ×2 (21:40)
[2021-12-09] MEDS ORDERED: IOPAMIDOL-370 50ML BTL MISCELLANE ONE (22:20)
--- NOTE | 2021-12-09 22:38 | P.OP ---
Date of Procedure: 12/09/21 Preoperative Diagnosis: Left hydronephrosis secondary to left ureteral calculi Postoperative Diagnosis: Left hydronephrosis secondary to left ureteral stricture Procedure(s) Performed: Cystoscopy, left ureteroscopy, balloon dilation of left distal ureteral stricture, left ureteral stent insertion Anesthesia: CATRACHITOA Surgeon: Rogers Cool Estimated Blood Loss (ml): 0 IV fluids (ml): 900 Pathology: none sent Condition: stable Disposition: PACU Indications for Procedure: This is an 80-year-old male that presented to the hospital with intractable nausea and vomiting and abdominal pain, and minimal stool output from his ostomy. He underwent a CT scan of the abdomen and pelvis which was consistent with a high-grade bowel obstruction. The CT scan also showed left hydronephrosis due to 2 left distal ureteral calculi, the largest measuring 8 mm. He is scheduled to undergo exploratory laparotomy. A ureteral stent will be placed to relieve obstruction. Operative Findings: Left distal ureteral obstruction due to apparent stricture. Description of Procedure: The patient was taken to the operating room and placed in the dorsolithotomy position, with legs supported in Maximo stirrups. The external genitalia was prepped and draped sterilely. The 30 lens was used to introduce the 22-Belgian Storz cystoscopic sheath through the urethra and into the bladder under direct vision. The prostatic urethra showed evidence of lateral lobe enlargement. The bladder was examined in its entirety. Both ureteral orifices were normal anatomic location and configuration, and clear urine effluxed from the right. No tumors or foreign bodies were seen. An angle-tip 0.035 inch Glidewire was passed through the cystoscope. The left ureteral orifice was cannulated, but the Glidewire could only be advanced 1-2 cm. The [facility] semirigid ureteroscope was advanced into the bladder, and the left ureteral orifice was cannulated. The ureteroscope was advanced 1-2 cm, at which point obstruction was met. However, a lumen could be seen. A 0.035 inch Glidewire was passed through the ureteroscope. The lumen was cannulated, and the Glidewire was advanced up to the left renal pelvis. The Glidewire was backloaded into the cystoscope, which was replaced into the bladder. However, it was not possible to pass either a 6- Belgian or a 4.8-Belgian double-J ureteral stent over the wire due to obstruction. However, it was possible to advance a 12-Belgian, 4 cm balloon dilating catheter over the wire. The apparent stricture was dilated, and it was then possible to pass a 24 cm, 6-[place]gian double-J ureteral stent over the wire. Proper stent positioning was verified fluoroscopically and endoscopically. Clear urine drained through the stent. The cystoscope was removed, and a Meza catheter was placed. The return was clear. At this point, Dr. Perera proceeded with the exploratory laparotomy.
[2021-12-09] MEDS ORDERED: ONDANSETRON 4 MG TAB PO PRN (23:32)
[2021-12-09] MEDS ORDERED: HYDROcodone/APAP 7.5-325MG 1 EACH TAB PO PRN (23:32)
--- NOTE | 2021-12-09 23:32 | P.OP ---
Date of Procedure: 12/09/21 Preoperative Diagnosis: Small bowel obstruction Peristomal hernia Postoperative Diagnosis: Small obstruction Peristomal hernia Adhesions Procedure(s) Performed: Exploratory laparotomy Lysis of extensive adhesions Repair of parastomal hernia Small bowel resection Anesthesia: MANUEL Surgeon: Jostin Bui Estimated Blood Loss (ml): 100 Pathology: other (Small bowel) Condition: stable Disposition: PACU Description of Procedure: The patient's placed on the operating table in the supine position. He had undergone a ureteral dilatation stent placement by Dr. Rojas. The abdomen was prepped and draped usual fashion. The skin was incised in midline. There are extensive adhesions in the pleural cavity. Approximately 20 minutes of operative time used to lyse adhesions. The small bowel was run into the parastomal hernia and there appeared to be evidence of obstruction within the hernia. Small bowel reduced. The small bowel appeared to be ischemic. At this point small bowel was transected proximally distally with the ALESSANDRA stapler. And then using the Enseal device mesentery the bowel was divided. The specimen sent to pathology. A [id number] functional end-to-end staple anastomosis created using the ALESSANDRA and TA stapler. 3-0 GI silk sutures using a crotch stitch. The abdomen there is no bleeding seen. The parastomal hernia was repaired using 2-0 Ethibond suture. No mesh was placed secondary risk of infection. There was area to bleeding seen. The fascia closed with looped #1 PDS suture. Skin was closed table. Patient top she will was sent to recovery room stable.
[2021-12-10] MEDS ORDERED: HYDROmorphone 0.5 MG/0.5 ML SYRINGE IVP ONE (00:05)
[2021-12-10] MEDS: HYDROmorphone 1 MG/ML 1 ML SYRINGE IVP PRN ×5 (00:51→16:23)
[2021-12-10] MEDS: METOPROLOL TARTRATE 12.5 MG TAB PO SCH ×3 (01:03→20:47)
[2021-12-10] MEDS: ATORVASTATIN 40 MG TAB PO SCH ×2 (01:03→20:48)
[2021-12-10] MEDS: TAMSULOSIN 0.4 MG CAP.ER.24H PO SCH ×2 (01:03→20:48)
[2021-12-10] MEDS: AMIODARONE 200 MG TAB PO SCH ×3 (01:03→20:48)
[2021-12-10] MEDS: LACTATED RINGERS 1,000 ML IV SCH ×4 (01:04→20:48)
[2021-12-10] MEDS: metroNIDAZOLE-NS PMX 500 MG in SALINE 1 100ML.BAG IVPB SCH ×2 (01:09→10:07)
[2021-12-10] MEDS: SODIUM CHLORIDE 0.9% 1,000 ML IV SCH (01:12)
[2021-12-10] MEDS: ENOXAPARIN 40 MG/0.4 ML SYRINGE SQ SCH (08:43)
[2021-12-10] MEDS: SPIRONOLACTONE 25 MG TAB PO SCH (08:44)
[2021-12-10] MEDS: FINASTERIDE 5 MG TAB PO SCH (08:44)
--- NOTE | 2021-12-10 08:56 | P.PN ---
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 Denies any flank pain, urine is clear this am. Objective - Vital Signs Vital signs: Vital Signs Temp 97.5 F L 12/10/21 03:40 Pulse 68 12/10/21 03:40 Resp 18 12/10/21 03:40 BP 106/60 12/10/21 03:40 Pulse Ox 97 12/10/21 03:40 Intake & Output 12/09/21 12/10/21 12/10/21 18:59 06:59 18:59 Intake Total 1250 Output Total 30 250 Balance -30 1000 Weight 77.564 kg Intake: IV 1150 Intake, IV Titration 100 Amount metroNIDAZOLE-NS PMX 500 100 mg In Saline 1 100ml.bag @ 100 mls/hr IVPB Q8HR ANGELITA Rx#:[id number] Output: Gastric Drainage 30 Urine 150 Estimated Blood Loss 100 Other: Voiding Method Urinal Urinal # Voids 3 - Constitutional General appearance: Present: mild distress - Gastrointestinal Gastrointestinal Comment(s): Tenderness along the abdominal incision, No flank tenderness. General gastrointestinal: Present: soft - Labs CBC & Chem 7: 12/09/21 06:19 12/09/21 06:19 Labs: Microbiology - Last 24 Hours (Table) 12/08/21 16:46 Blood Culture - Preliminary Blood No Growth after 24 hours 12/08/21 18:35 Urine Culture - Preliminary Urine,Voided Assessment and Plan Assessment: 80-year-old male admitted to the hospital with small bowel obstruction. History of a 8mm and a 3 mm left distal stone. 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 -Meza can be removed when patient is ambulatory -Discussed with him will need ureteroscopy with holmium laser as an outpatient to address his stone -continue antibiotics until urine culture is finalized -F/U in two weeks with Dr Cool
[2021-12-10] MEDS ORDERED: SODIUM CHLORIDE 0.9% 1,000 ML IV ONE (10:22)
[2021-12-10 10:36] LABS: Basophils % (A) 0 %; Eosinophils % (A) 0 %; HCT 36.4 % (39.0-53.0); HGB 11.8 gm/dL (13.0-17.5); Lymphocytes # (A) 0.4 k/uL (1.0-4.8); Lymphocytes % (A) 2 %; MCH 31.7 pg (25.0-35.0); MCHC 32.3 g/dL (31.0-37.0); MCV 98.3 fL (80.0-100.0); Mean Platelet Volume 8.3; Monocytes # (A) 0.9 k/uL (0-1.0); Monocytes % (A) 5 %; Neutrophils # (A) 17.7 k/uL (1.3-7.7); Neutrophils % (A) 92 %; Platelet Count 230 k/uL (150-450); RBC 3.71 m/uL (4.30-5.90); RDW 13.5 % (11.5-15.5); WBC 19.1 k/uL (3.8-10.6)
[2021-12-10 10:48] LABS: ALT 387 U/L (4-49); AST 303 U/L (17-59); African American GFR (CKD) 41 (>60 ml/min/1.73 sqM); Albumin 2.2 g/dL (3.5-5.0); Alkaline Phosphatase 117 U/L (38-126); Anion Gap 11 mmol/L; Blood Urea Nitrogen 39 mg/dL (9-20); Calcium 7.6 mg/dL (8.4-10.2); Carbon Dioxide 15 mmol/L (22-30); Chloride 111 mmol/L (98-107); Globulin 2.3 g/dL; Glucose 82 mg/dL (74-99); Non-African American GFR(CKD) 36 (>60 ml/min/1.73 sqM); Potassium 3.5 mmol/L (3.5-5.1); Sodium 137 mmol/L (137-145); Total Bilirubin 1.8 mg/dL (0.2-1.3); Total Protein 4.5 g/dL (6.3-8.2)
--- NOTE | 2021-12-10 13:00 | P.PN ---
Subjective Progress Note Date: 12/10/21 CHIEF COMPLAINT: Small bowel ejection HISTORY OF PRESENT ILLNESS: Patient is postop day #1 status post exploratory laparotomy, lysis of extensive adhesions, repair of parastomal hernia and small bowel resection for small bowel obstruction due to parastomal hernia and adhesions. Patient is complaining of abdominal pain and reports that his pain is not controlled. He has been hypotensive. Urine output marginal and his been dark in color afebrile. WBC is AT 19.1 hemoglobin 11.8 platelets 230 Patient seen and examined with Dr. Bui PHYSICAL EXAM: VITAL SIGNS: Reviewed. GENERAL: Well-developed in no acute distress. HEENT: No sclera icterus. Extraocular movements grossly intact. Moist buccal mucosa. Head is atraumatic, normocephalic. ABDOMEN: Soft. Mildly distended. Incision site clean dry and intact. Colostomy bag empty. stoma pink NEUROLOGIC: Alert and oriented. Cranial nerves II through XII grossly intact. ASSESSMENT: 1. 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 Left hydronephrosis secondary to left ureteral stricture status post cys toscopy with left ureteroscopy balloon dilatation of the left distal ureteral stricture and left ureteral stent insertion by Dr. Cool PLAN: -1 L Fluid bolus given due to hypotension -Adjust pain medications -Continue IV fluids -Continue antibiotics -Keep patient nothing by mouth -Continue NG tube for decompression -Encourage incentive spirometer use -DVT prophylaxis Lovenox and GI prophylaxis Pepcid Physician Sewing Inspector note has been reviewed by physician. Signing provider agrees with the documented findings, assessment, and plan of care. Objective - Vital Signs Vital signs: Vital Signs Temp 97.7 F 12/10/21 12:20 Pulse 71 12/10/21 12:20 Resp 18 12/10/21 12:20 BP 125/69 12/10/21 12:20 Pulse Ox 93 L 12/10/21 12:20 Intake & Output 12/09/21 12/10/21 12/10/21 18:59 06:59 18:59 Intake Total 1250 Output Total 30 250 Balance -30 1000 Weight 77.564 kg Intake: IV 1150 Intake, IV Titration 100 Amount metroNIDAZOLE-NS PMX 500 100 mg In Saline 1 100ml.bag @ 100 mls/hr IVPB Q8HR [facility] Rx#:[id number] Output: Gastric Drainage 30 Urine 150 Estimated Blood Loss 100 Other: Voiding Method Urinal Urinal Indwelling Catheter # Voids 3 - Labs CBC & Chem 7: 12/10/21 09:50 12/10/21 09:50 Labs: Abnormal Lab Results - Last 24 Hours (Table) 12/10/21 12/10/21 Range/Units 09:50 09:50 WBC 19.1 H (3.8-10.6) k/uL RBC 3.71 L (4.30-5.90) m/uL Hgb 11.8 L (13.0-17.5) gm/dL Hct 36.4 L (39.0-53.0) % Neutrophils # 17.7 H (1.3-7.7) k/uL Lymphocytes # 0.4 L (1.0-4.8) k/uL Chloride 111 H (98-107) mmol/L Carbon Dioxide 15 L (22-30) mmol/L BUN 39 H (9-20) mg/dL Creatinine 1.76 H (0.66-1.25) mg/dL Calcium 7.6 L (8.4-10.2) mg/dL Total Bilirubin 1.8 H (0.2-1.3) mg/dL AST 303 H (17-59) U/L ALT 387 H (4-49) U/L Total Protein 4.5 L (6.3-8.2) g/dL Albumin 2.2 L (3.5-5.0) g/dL Microbiology - Last 24 Hours (Table) 12/08/21 18:35 Urine Culture - Preliminary Urine,Voided Pseudomonas spec 12/08/21 16:46 Blood Culture - Preliminary Blood No Growth after 24 hours
[2021-12-10] MEDS: FAMOTIDINE 20 MG/2 ML VIAL IV SCH (13:18)
[2021-12-10] MEDS: HYDROmorphone 0.5 MG/0.5 ML SYRINGE IVP PRN (13:21)
--- NOTE | 2021-12-10 15:40 | P.PN ---
Subjective Patient was evaluated today not complaining of any new symptomatology. He is a complains of intractable pain that comes and goes over comfortable during my examination. Case also discussed with RN present at bedside. Objective - Vital Signs Vital signs: Vital Signs Temp 97.7 F 12/10/21 12:20 Pulse 71 12/10/21 12:20 Resp 18 12/10/21 12:20 BP 125/69 12/10/21 12:20 Pulse Ox 93 L 12/10/21 12:20 Intake & Output 12/09/21 12/10/21 12/10/21 18:59 06:59 18:59 Intake Total 1250 Output Total 30 250 Balance -30 1000 Weight 77.564 kg Intake: IV 1150 Intake, IV Titration 100 Amount metroNIDAZOLE-NS PMX 500 100 mg In Saline 1 100ml.bag @ 100 mls/hr IVPB Q8HR ANG[facility] Rx#:[id number] Output: Gastric Drainage 30 Urine 150 Estimated Blood Loss 100 Other: Voiding Method Urinal Urinal Indwelling Catheter # Voids 3 - Exam Gen. patient is slightly uncomfortable however awake alert oriented 3 Cardiovascular normal S1/S2 no murmurs or rubs heard Respiratory no wheezing or rhonchi appreciated Abdomen decreased bowel sounds, slightly tender on deep palpation patient does also have a colostomy Neuro patient is awake alert oriented 3 Psych good spirits. ENT patient has NG tube in place or not. - Labs CBC & Chem 7: 12/10/21 09:50 12/10/21 09:50 Labs: Abnormal Lab Results - Last 24 Hours (Table) 12/10/21 12/10/21 Range/Units 09:50 09:50 WBC 19.1 H (3.8-10.6) k/uL RBC 3.71 L (4.30-5.90) m/uL Hgb 11.8 L (13.0-17.5) gm/dL Hct 36.4 L (39.0-53.0) % Neutrophils # 17.7 H (1.3-7.7) k/uL Lymphocytes # 0.4 L (1.0-4.8) k/uL Chloride 111 H (98-107) mmol/L Carbon Dioxide 15 L (22-30) mmol/L BUN 39 H (9-20) mg/dL Creatinine 1.76 H (0.66-1.25) mg/dL Calcium 7.6 L (8.4-10.2) mg/dL Total Bilirubin 1.8 H (0.2-1.3) mg/dL AST 303 H (17-59) U/L ALT 387 H (4-49) U/L Total Protein 4.5 L (6.3-8.2) g/dL Albumin 2.2 L (3.5-5.0) g/dL Microbiology - Last 24 Hours (Table) 12/08/21 18:35 Urine Culture - Preliminary Urine,Voided Pseudomonas spec 12/08/21 16:46 Blood Culture - Preliminary Blood No Growth after 24 hours Assessment and Plan Assessment: Assessment: #1 sepsis secondary to urinary company urinary tract infection -pseudomonas #2 small bowel obstruction can be secondary to underlying adhesions versus parastomal hernia? #3 coronary disease status post stent 2 #4 hyperlipidemia #5 essential hypertension #6 hyponatremia most likely related to dehydration #7 electrode abnormality secondary to above #8 CKD Secondary to Dehydration/Prerenal #9 transaminitis can be secondary to sepsis Plan: -Admit to medicine for close monitoring -Aspiration/fall precaution/hob30 -urine culture showing Pseudomonas sensitivities to follow. We'll switch from IV Rocephin to Zosyn. Discontinue Flagyl as well. -Stent placed by urology needs outpatient follow-up as well. -Continue with IV fluids -Replace electrolyte when necessary -Continue to monitor LFTs obtain right upper quadrant ultrasound if it doesnt trend down -DVT prophylaxis heparin 3 times a day
[2021-12-10] MEDS ORDERED: CEFEPIME 1 GM in SODIUM CHLORIDE 0.9% 50 ML IVPB SCH (15:45)
[2021-12-10] MEDS: PIPERACILLIN-TAZOBACTAM 3.375 GM in SODIUM CHLORIDE 0.9% 100 ML IVPB SCH ×2 (16:42→23:26)
[2021-12-11] MEDS ORDERED: LACTATED RINGERS 1,000 ML IV SCH (06:35)
[2021-12-11] MEDS ORDERED: MIDAZOLAM 2 MG/2 ML VIAL IV PRN (06:35)
[2021-12-11] MEDS: HYDROmorphone 1 MG/ML 1 ML SYRINGE IVP PRN ×3 (06:59→18:04)
[2021-12-11] MEDS: PIPERACILLIN-TAZOBACTAM 3.375 GM in SODIUM CHLORIDE 0.9% 100 ML IVPB SCH ×2 (08:33→16:21)
[2021-12-11] MEDS: ENOXAPARIN 40 MG/0.4 ML SYRINGE SQ SCH (08:34)
[2021-12-11] MEDS: METOPROLOL TARTRATE 12.5 MG TAB PO SCH ×2 (08:34→21:38)
[2021-12-11] MEDS: FAMOTIDINE 20 MG/2 ML VIAL IV SCH (08:34)
[2021-12-11] MEDS: FINASTERIDE 5 MG TAB PO SCH (08:35)
[2021-12-11] MEDS: SPIRONOLACTONE 25 MG TAB PO SCH (08:35)
[2021-12-11] MEDS: AMIODARONE 200 MG TAB PO SCH ×2 (08:36→21:38)
[2021-12-11] MEDS: LACTATED RINGERS 1,000 ML IV SCH ×5 (09:00→23:32)
--- NOTE | 2021-12-11 09:00 | US ---
EXAMINATION TYPE: US liver DATE OF EXAM: 12/11/2021 COMPARISON: None CLINICAL HISTORY: elevated LFTS. EXAM MEASUREMENTS: Liver Length: 16. 1 CM Gallbladder Wall: 0.5 cm CBD: 0.3 cm Right Kidney: 11.0 x 5.8 x 5.3 cm Inpatient with extensive midline bandaging and severe overlying bowel gas, post op small bowel obstru ction, ultrasound severely limited. Pancreas: Obscured by bowel gas Liver: cyst noted measuring 1.2 x 1.4 x 1.5cm, very limited views Gallbladder: limited visualization shows cholelithiasis. The gallbladder appears distended. Evidence for sonographic Hill's sign: no CBD: small segment seen appears wnl Right Kidney: stone measuring 1.5cm and probable hydro IMPRESSION: 1. Markedly limited study secondary to patient's body habitus and bowel gas. 2. Cholelithiasis with distended gallbladder possibly indicating acute cholecystitis 3. Renal stone with probable mild to moderate hydronephrosis.
--- NOTE | 2021-12-11 10:21 | P.PN ---
Subjective Progress Note Date: 12/11/21 Principal diagnosis: Small bowel obstruction A-year-old male with small bowel obstruction secondary to incarcerated parastomal hernia. Underwent exploratory laparotomy with repair of hernia and small bowel resection. Patient believes he had a small amount of flatus through the ostomy however none is evident at this time. Nasogastric tube remains in place. Pain is coming intermittently. Morning labs pending. Objective - Vital Signs Vital signs: Vital Signs Temp 97.7 F 12/11/21 05:00 Pulse 76 12/11/21 05:00 Resp 16 12/11/21 05:00 BP 93/50 12/11/21 05:00 Pulse Ox 91 L 12/11/21 05:00 Intake & Output 12/10/21 12/11/21 12/11/21 18:59 06:59 18:59 Intake Total 240 Output Total 595 500 Balance -595 -260 Intake: Oral 240 Output: Gastric Drainage 70 Urine 525 500 Uretheral (Meza) 525 Other: Voiding Method Indwelling Catheter Indwelling Catheter # Voids 2 - Exam Abdomen: Soft, mild distention, mild tenderness, incision clean and dry, ostomy without significant function - Labs CBC & Chem 7: 12/10/21 09:50 12/10/21 09:50 Labs: Abnormal Lab Results - Last 24 Hours (Table) 12/10/21 12/10/21 Range/Units 09:50 09:50 WBC 19.1 H (3.8-10.6) k/uL RBC 3.71 L (4.30-5.90) m/uL Hgb 11.8 L (13.0-17.5) gm/dL Hct 36.4 L (39.0-53.0) % Neutrophils # 17.7 H (1.3-7.7) k/uL Lymphocytes # 0.4 L (1.0-4.8) k/uL Chloride 111 H (98-107) mmol/L Carbon Dioxide 15 L (22-30) mmol/L BUN 39 H (9-20) mg/dL Creatinine 1.76 H (0.66-1.25) mg/dL Calcium 7.6 L (8.4-10.2) mg/dL Total Bilirubin 1.8 H (0.2-1.3) mg/dL AST 303 H (17-59) U/L ALT 387 H (4-49) U/L Total Protein 4.5 L (6.3-8.2) g/dL Albumin 2.2 L (3.5-5.0) g/dL Microbiology - Last 24 Hours (Table) 12/08/21 16:46 Blood Culture - Preliminary Blood No Growth after 48 hours 12/08/21 18:35 Urine Culture - Preliminary Urine,Voided Pseudomonas spec Assessment and Plan (1) SBO (small bowel obstruction) Narrative/Plan: Patient with ileus following small bowel resection. Keep nasogastric tube in place. Check morning labs. We'll review abdominal ultrasound given the el evated liver enzymes. May have popsicles intermittently. Current Visit: Yes Status: Acute Code(s): K56.609 - UNSP INTESTNL OBST, UNSP TO PARTIAL VERSUS COMPLETE OBST SNOMED Code(s): 871744609
[2021-12-11 11:22] LABS: HCT 33.7 % (39.6-50.0); HGB 10.9 g/dL (13.0-17.0); MCH 31.1 pg (27.0-32.0); MCHC 32.3 g/dL (32.0-37.0); MCV 96.3 fL (80.0-97.0); Mean Platelet Volume 11.1 fL (9.5-12.2); NRBC Per 100 WBC 0 /100 WBCS (0.0-0.0); Platelet Count 219 X 10*3/uL (140-440); RDW 14.4 % (11.5-14.5); WBC 22.68 X 10*3/uL (4.50-10.00)
[2021-12-11 11:51] LABS: African American GFR (CKD) 40.3 (60.0-200.0); Albumin 2.2 g/dL (3.8-4.9); Albumin/Globulin Ratio 1.38 (1.60-3.17); Anion Gap 16.5 mmol/L (10.00-18.00); BUN/Creat Ratio 21.28 Ratio (12.00-20.00); Blood Urea Nitrogen 38.3 mg/dL (9.0-27.0); Calcium 7.8 mg/dL (8.7-10.3); Carbon Dioxide 13.5 mmol/L (20.0-27.5); Globulin 1.6 g/dL (1.6-3.3); Non-African American GFR(CKD) 34.8 (60.0-200.0); Potassium 3.8 mmol/L (3.5-5.5); Total Bilirubin 2.7 mg/dL (0.30-1.20); Total Protein 3.8 g/dL (6.2-8.2)
--- NOTE | 2021-12-11 14:17 | P.PN ---
Subjective Patient was examined at bedside today not complaining of any new symptomatology. Continues to complain of intractable pain which is manageable currently 4-10. NG tube in place he is passing gas however no output in the NG tube. Objective - Vital Signs Vital signs: Vital Signs Temp 97.4 F L 12/11/21 12:33 Pulse 96 12/11/21 12:33 Resp 20 12/11/21 12:33 BP 109/70 12/11/21 12:33 Pulse Ox 93 L 12/11/21 12:33 Intake & Output 12/10/21 12/11/21 12/11/21 18:59 06:59 18:59 Intake Total 240 Output Total 595 500 Balance -595 -260 Intake: Oral 240 Output: Gastric Drainage 70 Urine 525 500 Uretheral (Meza) 525 Other: Voiding Method Indwelling Catheter Indwelling Catheter Indwelling Catheter # Voids 2 - Exam Gen. patient is slightly uncomfortable however awake alert oriented 3 Nose: NG tube in place. Cardiovascular normal S1/S2 no murmurs or rubs heard Respiratory no wheezing or rhonchi appreciated Abdomen decreased bowel sounds, slightly tender on deep palpation patient does also have a colostomy Neuro patient is awake alert oriented 3 Psych good spirits. ENT patient has NG tube in place - Labs CBC & Chem 7: 12/11/21 06:49 12/11/21 06:49 Labs: Abnormal Lab Results - Last 24 Hours (Table) 12/11/21 12/11/21 Range/Units 06:49 06:49 WBC 22.68 H (4.50-10.00) X 10*3/uL RBC 3.50 L (4.40-5.60) X 10*6/uL Hgb 10.9 L (13.0-17.0) g/dL Hct 33.7 L (39.6-50.0) % Chloride 111 H (96-109) mmol/L Carbon Dioxide 13.5 L (20.0-27.5) mmol/L BUN 38.3 H (9.0-27.0) mg/dL Creatinine 1.8 H (0.6-1.5) mg/dL Est GFR (CKD-EPI)AfAm 40.3 L (60.0-200.0) Est GFR (CKD-EPI)NonAf 34.8 L (60.0-200.0) BUN/Creatinine Ratio 21.28 H (12.00-20.00) Ratio Glucose 118 H (70-110) mg/dL Calcium 7.8 L (8.7-10.3) mg/dL Total Bilirubin 2.70 H (0.30-1.20) mg/dL AST 387 H (14-35) U/L ALT 467 H (10-49) U/L Alkaline Phosphatase 308 H (41-126) U/L Total Protein 3.8 L (6.2-8.2) g/dL Albumin 2.2 L (3.8-4.9) g/dL Albumin/Globulin Ratio 1.38 L (1.60-3.17) g/dL Microbiology - Last 24 Hours (Table) 12/08/21 18:35 Urine Culture - Final Urine,Voided Pseudomonas aeruginosa 12/08/21 16:46 Blood Culture - Preliminary Blood No Growth after 48 hours Assessment and Plan Assessment: Assessment: #1 sepsis secondary to urinary company urinary tract infection -pseudomonas #2 small bowel obstruction can be secondary to underlying adhesions versus parastomal hernia? #3 coronary disease status post stent 2 #4 hyperlipidemia #5 essential hypertension #6 hyponatremia most likely related to dehydration #7 electrode abnormality secondary to above #8 CKD Secondary to Dehydration/Prerenal #9 transaminitis can be secondary to sepsis Plan: -Admit to medicine for close monitoring -Aspiration/fall precaution/hob30 -Urine cultures reviewed showing Pseudomonas. Urine cultures positive susceptible to Zosyn which we will continue to complete 5 days. -Stent placed by urology needs outpatient follow-up as well. -Continue with IV fluids -Replace electrolyte when necessary -Continue to monitor LFTs obtain right upper quadrant ultrasound if it doesnt trend down -DVT prophylaxis Lovenox
[2021-12-11] MEDS: TAMSULOSIN 0.4 MG CAP.ER.24H PO SCH (21:38)
[2021-12-11] MEDS: ATORVASTATIN 40 MG TAB PO SCH (21:38)
[2021-12-11] MEDS: HYDROmorphone 0.5 MG/0.5 ML SYRINGE IVP PRN (21:39)
[2021-12-12] MEDS: PIPERACILLIN-TAZOBACTAM 3.375 GM in SODIUM CHLORIDE 0.9% 100 ML IVPB SCH ×3 (00:01→16:49)
[2021-12-12] MEDS: LACTATED RINGERS 1,000 ML IV SCH (06:21)
[2021-12-12] MEDS ORDERED: LACTATED RINGERS 500 ML IV ONE ×2 (08:30→10:00)
[2021-12-12] MEDS ORDERED: LACTATED RINGERS 500 ML IV SCH (08:30)
--- NOTE | 2021-12-12 09:51 | P.PN ---
Subjective Progress Note Date: 12/12/21 Principal diagnosis: Small bowel obstruction Patient apparently was more confused last night. Still no bowel function through his ostomy. This morning he was noted to have episodes of hypotension and tachycardia. Given a 500 mL bolus of saline. It was discussion about possible transfer to the ICU. Urine output is dark in color and volume is decreased. Says his pain is similar to yesterday. He is more concerned about his thirst. White blood cell count did increase today. Objective - Vital Signs Vital signs: Vital Signs Temp 97.6 F 12/12/21 07:25 Pulse 75 12/12/21 07:25 Resp 20 12/12/21 07:25 BP 87/60 12/12/21 07:25 Pulse Ox 94 L 12/12/21 07:25 Intake & Output 12/11/21 12/12/21 12/12/21 17:59 06:59 18:59 Intake Total Output Total Balance Intake: Intake, IV Titration Amount Lactated Ringers 1,000 ml @ 125 mls/hr IV .Q8H [facility] Rx#:[id number] Piperacillin-Tazobactam 3 .375 gm In Sodium Chloride 0.9% 100 ml @ 25 mls/hr IVPB Q8HR AN[facility] Rx# :[id number] Oral Output: Gastric Drainage Urine Uretheral (Meza) Other: Voiding Method - Exam Abdomen: Soft, minimal distention, mild diffuse tenderness, no ostomy function - Labs CBC & Chem 7: 12/11/21 06:49 12/11/21 06:49 Labs: Abnormal Lab Results - Last 24 Hours (Table) 12/11/21 12/11/21 Range/Units 06:49 06:49 WBC 22.68 H (4.50-10.00) X 10*3/uL RBC 3.50 L (4.40-5.60) X 10*6/uL Hgb 10.9 L (13.0-17.0) g/dL Hct 33.7 L (39.6-50.0) % Chloride 111 H (96-109) mmol/L Carbon Dioxide 13.5 L (20.0-27.5) mmol/L BUN 38.3 H (9.0-27.0) mg/dL Creatinine 1.8 H (0.6-1.5) mg/dL Est GFR (CKD-EPI)AfAm 40.3 L (60.0-200.0) Est GFR (CKD-EPI)NonAf 34.8 L (60.0-200.0) BUN/Creatinine Ratio 21.28 H (12.00-20.00) Ratio Glucose 118 H (70-110) mg/dL Calcium 7.8 L (8.7-10.3) mg/dL Total Bilirubin 2.70 H (0.30-1.20) mg/dL AST 387 H (14-35) U/L ALT 467 H (10-49) U/L Alkaline Phosphatase 308 H (41-126) U/L Total Protein 3.8 L (6.2-8.2) g/dL Albumin 2.2 L (3.8-4.9) g/dL Albumin/Globulin Ratio 1.38 L (1.60-3.17) g/dL Microbiology - Last 24 Hours (Table) 12/08/21 16:46 Blood Culture - Preliminary Blood No Growth after 72 hours 12/08/21 18:35 Urine Culture - Final Urine,Voided Pseudomonas aeruginosa Assessment and Plan (1) SBO (small bowel obstruction) Narrative/Plan: Patient with intermittent tachycardia and irregular heart beat on exam. We'll consult cardiology and obtain 12-lead EKG for suspected atrial fibrillation with rapid ventricular response. This certainly may be contributing to his hypotension. We'll give another 500 mL bolus of saline right now. Keep nothing by mouth for now. Patient's abdominal examination is not suggestive of anastom otic leak at this time. We'll consider CT abdomen and pelvis based on how the patient responds to correction of his atrial fibrillation. Current Visit: Yes Status: Acute Code(s): K56.609 - UNSP INTESTNL OBST, UNSP TO PARTIAL VERSUS COMPLETE OBST SNOMED Code(s): 682789091
[2021-12-12] MEDS: ENOXAPARIN 40 MG/0.4 ML SYRINGE SQ SCH (09:53)
[2021-12-12] MEDS: FAMOTIDINE 20 MG/2 ML VIAL IV SCH (09:53)
[2021-12-12] MEDS: FINASTERIDE 5 MG TAB PO SCH (09:54)
[2021-12-12] MEDS: METOPROLOL TARTRATE 12.5 MG TAB PO SCH ×2 (10:21→20:38)
[2021-12-12] MEDS: AMIODARONE 200 MG TAB PO SCH (10:21)
[2021-12-12] MEDS: SPIRONOLACTONE 25 MG TAB PO SCH (10:21)
[2021-12-12] MEDS ORDERED: AMIODARONE 150 MG Bolus IV ONE ×2 (11:00)
--- NOTE | 2021-12-12 11:16 | P.PN ---
Subjective She was examined at bedside today continues to have low blood pressure readings 87/60. Personally checked his blood pressure on both sides MAP continues to be 55-60. Bolus of normal saline 500 mL given at bedside. I also did discuss the case with ICU. The recommending transfer to the unit for close hemodynamic monitoring. He does have some bouts of confusion after AAO 3. There has been no output in the ostomy or any gas Objective - Vital Signs Vital signs: Vital Signs Temp 97.6 F 12/12/21 07:25 Pulse 110 H 12/12/21 10:47 Resp 22 12/12/21 10:47 BP 79/57 12/12/21 10:47 Pulse Ox 92 L 12/12/21 10:47 Intake & Output 12/11/21 12/12/21 12/12/21 17:59 06:59 18:59 Intake Total Output Total Balance Intake: Intake, IV Titration Amount Lactated Ringers 1,000 ml @ 125 mls/hr IV .Q8H [facility] Rx#:[id number] Piperacillin-Tazobactam 3 .375 gm In Sodium Chloride 0.9% 100 ml @ 25 mls/hr IVPB Q8HR ANGELITA Rx# :[id number] Oral Output: Gastric Drainage Urine Uretheral (Meza) Other: Voiding Method - Exam Gen. patient is slightly uncomfortable however awake alert oriented 3 waxes and wanes Nose: NG tube in place. Cardiovascular normal S1/S2 no murmurs or rubs heard Respiratory no wheezing or rhonchi appreciated Abdomen decreased bowel sounds, slightly tender on deep palpation patient does also have a colostomy -no output Neuro patient is awake alert oriented 3 Psych good spirits. ENT patient has NG tube in place - Labs CBC & Chem 7: 12/11/21 06:49 12/11/21 06:49 Labs: Abnormal Lab Results - Last 24 Hours (Table) 12/11/21 12/11/21 Range/Units 06:49 06:49 WBC 22.68 H (4.50-10.00) X 10*3/uL RBC 3.50 L (4.40-5.60) X 10*6/uL Hgb 10.9 L (13.0-17.0) g/dL Hct 33.7 L (39.6-50.0) % Chloride 111 H (96-109) mmol/L Carbon Dioxide 13.5 L (20.0-27.5) mmol/L BUN 38.3 H (9.0-27.0) mg/dL Creatinine 1.8 H (0.6-1.5) mg/dL Est GFR (CKD-EPI)AfAm 40.3 L (60.0-200.0) Est GFR (CKD-EPI)NonAf 34.8 L (60.0-200.0) BUN/Creatinine Ratio 21.28 H (12.00-20.00) Ratio Glucose 118 H (70-110) mg/dL Calcium 7.8 L (8.7-10.3) mg/dL Total Bilirubin 2.70 H (0.30-1.20) mg/dL AST 387 H (14-35) U/L ALT 467 H (10-49) U/L Alkaline Phosphatase 308 H (41-126) U/L Total Protein 3.8 L (6.2-8.2) g/dL Albumin 2.2 L (3.8-4.9) g/dL Albumin/Globulin Ratio 1.38 L (1.60-3.17) g/dL Microbiology - Last 24 Hours (Table) 12/08/21 16:46 Blood Culture - Preliminary Blood No Growth after 72 hours 12/08/21 18:35 Urine Culture - Final Urine,Voided Pseudomonas aeruginosa Assessment and Plan Assessment: Assessment: #1 sepsis secondary to urinary company urinary tract infection -pseudomonas #2 small bowel obstruction can be secondary to underlying adhesions versus parastomal hernia? #3 coronary disease status post stent 2 #4 hyperlipidemia #5 essential hypertension #6 hyponatremia most likely related to dehydration #7 electrolyte abnormality secondary to above #8 CKD Secondary to Dehydration/Prerenal #9 transaminitis can be secondary to sepsis most likely #10 hypotension secondary to sepsis may be progressing towards septic shock.? Plan: -Admit to medicine for close monitoring -Aspiration/fall precaution/hob30 -Blood pressure continues to be labile. 500 mL bolus given. Case discussed with ICU transfer for close hemodynamic monitoring. Continue with LR. -Urine cultures reviewed showing Pseudomonas. Urine cultures positive susceptible to Zosyn which we will continue to complete 5 days. -Stent placed by urology needs outpatient follow-up as well. -Continue with IV fluids -Replace electrolyte when necessary -Continue to monitor LFTs obtain right upper quadrant ultrasound if it doesnt trend down -Obtain EKG -DVT prophylaxis Lovenox Disposition: The patient is being transferred to ICU.
[2021-12-12 11:24] LABS: Glucose,Whole Blood 167 mg/dL (75-99)
[2021-12-12] MEDS ORDERED: LACTATED RINGERS 1,000 ML IV ONE (11:45)
--- NOTE | 2021-12-12 11:50 | P.CRDCN ---
History of Present Illness History of present illness: Known coronary artery disease status post angioplasty of circumflex OM in 2018 paroxysmal atrial fibrillation hypertension dyslipidemia status post loop recorder comes to Hospital complaining of chest discomfort. She describes the chest pain a sharp pericardial pressure mild intensity with some radiation to her back. When she first presented to the emergency room she was in atrial fibrillation with rapid ventricular rate. She subsequently converted to sinus rhythm with which her chest pain had resolved. At the time of my evaluation she is pain-free hemodynamically stable and in no apparent distress. I believe her chest pain is related to atrial fibrillation with rapid ventricula r rate and supply demand mismatch. She is currently on Cardizem and Eliquis. Patient might benefit from A. fib ablation. I will obtain serial troponins to rule out myocardial infarction and if this is ruled out and she is symptom free she can be discharged home and arrange for an outpatient stress test and if necessary invasive angiography Constitutional: Denies chills. Denies fever. Eyes: Denies blurred vision. Denies pain. Ears, nose, mouth and throat: Denies headache. Denies sore throat. Cardiovascular: Significant for chest pain Denies shortness of breath. Respiratory: Denies cough. Gastrointestinal: Denies abdominal pain. Denies diarrhea. Denies nausea. Denies vomiting. Musculoskeletal: Denies myalgias. Integumentary: Denies pruritus. Denies rash. Neurological: Denies numbness. Denies weakness. Psychiatric: Denies anxiety. Denies depression. Endocrine: Denies fatigue. Denies weight change. Genitourinary: Denies burning, hematuria, frequency of urination. Hematological: No anemia or excess bleeding. General: The patient is awake and alert, in no distress, and does not appear acutely ill. Skin: Skin is warm and dry and no rashes or lesions are noted. Eye: Pupils are equal, round and reactive to light, extra-ocular movements are intact; there is normal conjunctiva bilaterally. Ears, nose, mouth and throat: There are moist mucous membranes and no oral lesions. Neck: The neck is supple, there is no tenderness or JVD. Cardiovascular: There is a regular rate and rhythm. No murmur, rub or gallop is appreciated. Respiratory: Lungs are clear to auscultation, respirations are non-labored, breath sounds are equal. Gastrointestinal: Soft, non-distended, non-tender abdomen without masses or organomegaly noted. There is no rebound or guarding present. Bowel sounds are unremarkable. Back: There is no tenderness to palpation in the midline. There is no obvious deformity. Musculoskeletal: Normal ROM, no tenderness, There is no pedal edema. There is no calf tenderness or swelling. Extremities: No edema. Vascular: Femoral pulse is normal. Posterior tibial pulses are normal .Dorsalis pedis is palpable. Neurological: CN II-XII intact. There are no obvious motor or sensory deficits. Speech is normal. Psychiatric: Cooperative, appropriate mood & affect, normal judgment. Assessment and plan: Paroxysmal atrial fibrillation with rapid ventricular rate Precordial chest pain probably related to A. fib with RVR CAD status post prior angioplasty Continue patient on calcium channel blockers stop the IV Cardizem continue the Eliquis obtain a 2-D echo in the morning obtain serial troponins Past Medical History Past Medical History: Coronary Artery Disease (CAD), Cancer, COPD, Deep Vein Thrombosis (DVT), Hyperlipidemia, Hypertension, Osteoarthritis (OA), Sleep Apnea/CPAP/BIPAP Additional Past Medical History / Comment(s): colon cancer, SKIN CANCER, colostomy, vertigo, kidney stones, states very nauseated currently, DVT 03/2021 left leg, not using CPAP, currently on Rx for UTI Last Myocardial Infarction Date:: 03/2021 History of Any Multi-Drug Resistant Organisms: None Reported Past Surgical History: Adenoidectomy, AICD, Bowel Resection, Cardiac Ablation, Heart Catheterization With Stent, Hernia Repair, Pacemaker, Tonsillectomy Additional Past Surgical History / Comment(s): colostomy, two cardiac stents, Past Anesthesia/Blood Transfusion Reactions: No Reported Reaction Additional Past Anesthesia/Blood Transfusion Reaction / Comment(s): Pt received blood in the past without reaction. Date of Last Stent Placement:: 2020 Type of Cardiac Device: AICD Device Placement Date:: 04/01/2021 Past Psychological History: No Psychological Hx Reported Smoking Status: Never smoker - Past Family History Mother Family Medical History: Cancer Additional Family Medical History / Comment(s): Breast cancer. Father Additional Family Medical History / Comment(s): Valve replacement and pacemaker. Brother(s) Family Medical History: Coronary Artery Disease (CAD) Additional Family Medical History / Comment(s): CABG. Medications and Allergies Home Medications Medication Instructions Recorded Confirmed Type Atorvastatin [Lipitor] 40 mg PO HS 08/23/16 03/09/22 History Amiodarone [Cordarone] 200 mg PO BID 06/13/21 12/08/21 History Cholecalciferol [Vitamin D3 (25 50 mcg PO DAILY@1200 06/13/21 12/08/21 History Mcg = 1000 Iu)] Clopidogrel [Plavix] 75 mg PO DAILY 06/13/21 12/08/21 History Finasteride [Proscar] 5 mg PO DAILY 06/13/21 12/08/21 History Metoprolol Tartrate [Lopressor] 12.5 mg PO BID 06/13/21 12/08/21 History Sodium Bicarbonate Tab 650 mg PO TID 06/13/21 12/08/21 History Tamsulosin [Flomax] 0.4 mg PO HS 06/13/21 12/08/21 History Apixaban [Eliquis] 5 mg PO BID 07/16/21 12/08/21 History Calcium Acetate 667 mg PO W/BRKFST 12/01/21 12/08/21 History Cephalexin [Keflex] 500 mg PO Q6HR 10 Days #40 cap 12/01/21 12/08/21 Rx HYDROcodone/APAP 5-325MG [[place] 1 tab PO Q6HR PRN 3 Days #12 tab 12/01/21 12/08/21 Rx 5-325] Spironolactone 12.5 mg PO DAILY 12/01/21 12/08/21 History calcitrioL [Rocaltrol] 0.25 mcg PO WE@1200 12/01/21 12/08/21 History Nitrofurantoin Macrocrystal 100 mg PO TID 12/07/21 12/08/21 History [Nitrofurantoin] Docusate [Colace] 300 mg PO DAILY 12/08/21 12/08/21 History Ondansetron Odt [Zofran Odt] 4 mg PO Q6H PRN 12/08/21 12/08/21 History Allergies Allergy/AdvReac Type Severity Reaction Status Date / Time No Known Allergies Allergy Verified 12/08/21 10:29 Physical Exam Vitals: Vital Signs Temp Pulse Resp BP BP Pulse Ox 12/12/21 10:47 110 H 22 79/57 92 L 12/12/21 07:25 97.6 F 75 20 87/60 94 L 12/12/21 04:13 97.5 F L 83 20 99/63 93 L 12/11/21 19:30 98.2 F 73 20 94/61 93 L 12/11/21 12:33 97.4 F L 96 20 109/70 93 L Intake and Output 12/11/21 12/12/21 12/12/21 21:59 06:59 14:59 Intake Total Output Total Balance Intake: Intake, IV Titration Amount Lactated Ringers 1,000 ml @ 125 mls/hr IV .Q8H [facility] Rx#:[id number] Piperacillin-Tazobactam 3 .375 gm In Sodium Chloride 0.9% 100 ml @ 25 mls/hr IVPB Q8HR [facility] Rx# :[id number] Oral Output: Gastric Drainage Urine Uretheral (Meza) Other: Voiding Method Indwelling Catheter Results 12/11/21 06:49 12/11/21 06:49 Cardiac Enzymes 12/11/21 Range/Units 06:49 AST 387 H (14-35) U/L CBC 12/11/21 Range/Units 06:49 WBC 22.68 H (4.50-10.00) X 10*3/uL RBC 3.50 L (4.40-5.60) X 10*6/uL Hgb 10.9 L (13.0-17.0) g/dL Hct 33.7 L (39.6-50.0) % Plt Count 219 (140-440) X 10*3/uL Comprehensive Metabolic Panel 12/11/21 Range/Units 06:49 Sodium 141 (135-145) mmol/L Potassium 3.8 (3.5-5.5) mmol/L Chloride 111 H (96-109) mmol/L Carbon Dioxide 13.5 L (20.0-27.5) mmol/L BUN 38.3 H (9.0-27.0) mg/dL Creatinine 1.8 H (0.6-1.5) mg/dL Glucose 118 H (70-110) mg/dL Calcium 7.8 L (8.7-10.3) mg/dL AST 387 H (14-35) U/L ALT 467 H (10-49) U/L Alkaline Phosphatase 308 H (41-126) U/L Total Protein 3.8 L (6.2-8.2) g/dL Albumin 2.2 L (3.8-4.9) g/dL Current Medications Generic Name Dose Route Start Last Admin Trade Name Freq PRN Reason Stop Dose Admin Hydrocodone Bitart/Acetaminophen 1 each 12/09/21 23:32 Hydrocodone/Apap 7.5-325mg 1 Each Tab PO Q6H PRN Pain Amiodarone HCl 200 mg 12/08/21 21:00 12/12/21 10:21 Amiodarone 200 Mg Tab PO Not Given BID ANGELITA Atorvastatin Calcium 40 mg 12/08/21 21:00 12/11/21 21:38 Atorvastatin 40 Mg Tab PO 40 mg HS ANGELITA Administration Enoxaparin Sodium 40 mg 12/10/21 09:00 12/12/21 09:53 Enoxaparin 40 Mg/0.4 Ml Syringe SQ 40 mg DAILY ANGELITA Administration Famotidine 20 mg 12/10/21 13:30 12/12/21 09:53 Famotidine 20 Mg/2 Ml Vial IV 20 mg DAILY ANGELITA Administration Finasteride 5 mg 12/09/21 09:00 12/12/21 09:54 Finasteride 5 Mg Tab PO 5 mg DAILY ANGELITA Administration Hydromorphone HCl 1 mg 12/09/21 23:32 12/11/21 18:04 Hydromorphone 1 Mg/Ml 1 Ml Syringe IVP 1 mg Q3HR PRN Administration Pain Hydromorphone HCl 0.5 mg 12/10/21 10:45 12/11/21 21:39 Hydromorphone 0.5 Mg/0.5 Ml Syringe IVP 0.5 mg Q2H PRN Administration Breakthrough Pain Lactated Ringer's 1,000 mls @ 125 mls/hr 12/09/21 23:45 12/12/21 06:21 Lactated Ringers IV 125 mls/hr .Q8H ANGELITA Administration Piperacillin Sod/Tazobactam 100 mls @ 25 mls/hr 12/10/21 16:00 12/12/21 09:52 Sod 3.375 gm/ Sodium Chloride IVPB 25 mls/hr Q8HR ANGELITA Administration Lactated Ringer's 1,000 mls @ 20 mls/hr 12/11/21 06:35 12/11/21 23:32 Lactated Ringers IV Not Given .Q24H ANGELITA Lactated Ringer's 1,000 mls @ 999 mls/hr 12/12/21 11:45 Lactated Ringers IV 12/12/21 12:45 .Q1H1M ONE Metoprolol Tartrate 12.5 mg 12/08/21 21:00 12/12/21 10:21 Metoprolol Tartrate 12.5 Mg Tab PO Not Given BID [facility] Naloxone HCl 0.2 mg 12/08/21 11:53 Naloxone 0.4 Mg/Ml 1 Ml Vial IV Q2M PRN Opioid Reversal Ondansetron HCl 4 mg 12/08/21 12:01 Ondansetron 4 Mg/2 Ml Vial IVP Q8HR PRN Nausea And Vomiting Ondansetron HCl 4 mg 12/09/21 23:32 Ondansetron 4 Mg Tab PO Q8HR PRN Nausea And Vomiting Spironolactone 12.5 mg 12/09/21 09:00 12/12/21 10:21 Spironolactone 25 Mg Tab PO Not Given DAILY [facility] Tamsulosin HCl 0.4 mg 12/08/21 21:00 12/11/21 21:38 Tamsulosin 0.4 Mg Cap.Er.24h PO 0.4 mg HS [facility] Administration Intake and Output 12/11/21 12/12/21 12/12/21 21:59 06:59 14:59 Intake Total Output Total Balance Intake: Intake, IV Titration Amount Lactated Ringers 1,000 ml @ 125 mls/hr IV .Q8H [facility] Rx#:[id number] Piperacillin-Tazobactam 3 .375 gm In Sodium Chloride 0.9% 100 ml @ 25 mls/hr IVPB Q8HR [facility] Rx# :[id number] Oral Output: Gastric Drainage Urine Uretheral (Meza) Other: Voiding Method Indwelling Catheter 12/11/21 06:49 12/11/21 06:49
[2021-12-12] MEDS ORDERED: METOPROLOL TARTRATE 5 MG/5 ML VIAL IVP STA (11:58)
[2021-12-12 12:09] LABS: Basophils # (A) 0.1 k/uL (0-0.2); Basophils % (A) 0 %; Eosinophils % (A) 0 %; HCT 38.2 % (39.0-53.0); HGB 12.5 gm/dL (13.0-17.5); Lymphocytes # (A) 0.7 k/uL (1.0-4.8); Lymphocytes % (A) 2 %; MCH 32.1 pg (25.0-35.0); MCHC 32.7 g/dL (31.0-37.0); MCV 98.1 fL (80.0-100.0); Mean Platelet Volume 8.4; Monocytes # (A) 1.2 k/uL (0-1.0); Monocytes % (A) 3 %; Neutrophils # (A) 35.9 k/uL (1.3-7.7); Neutrophils % (A) 94 %; Platelet Count 255 k/uL (150-450); RBC 3.89 m/uL (4.30-5.90); RDW 14.2 % (11.5-15.5)
[2021-12-12] MEDS: NOREPINEPHRINE 4 MG in SODIUM CHLORIDE 0.9% 250 ML IV SCH (12:10)
[2021-12-12 12:12] LABS: Calcium 7.9 mg/dL (8.4-10.2); Magnesium 2.1 mg/dL (1.6-2.3); Phosphorus 3.1 mg/dL (2.5-4.5); Potassium 3.6 mmol/L (3.5-5.1); Total Bilirubin 1.9 mg/dL (0.2-1.3); Total Protein 4.2 g/dL (6.3-8.2)
--- NOTE | 2021-12-12 12:13 | CONS ---
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 He developed wide-complex tachycardia on the floor, for which Cardiology had been consulted. At the time of my evaluation, patient is hypotensive and but does not seem to be in any respiratory distress. He is receiving fluid boluses. His EKG shows a wide-complex tachycardia with change in axis, raising the possibility of a ventricular tachycardia. Patient has known ventricular tachycardia and underwent AICD for the same. He has known coronary artery disease and has had prior angioplasty with stent placement of mid LAD in March of 2021. Patient also has history of atrial fibrillation. He has prior stenting of the right coronary artery. Patient in June had COVID infection and has had DVT related to it. His labs show that the white cell count is elevated at 22, hemoglobin is 10.9, potassium is 3.8, BUN is 38, creatinine is 1.8. Magnesium was 2.1 on 12/09. Patient initially presented to hospital with nausea, vomiting and had obstructing kidney stone, for which he underwent cystoscopy with stone removal. Subsequently he had high-grade mechanical small-bowel obstruction, for which he underwent surgery. PAST MEDICAL HISTORY: Past medical history is significant for coronary artery disease, status post angioplasty of right coronary artery and LAD, diabetes, hypertension, renal insufficiency, GERD, AICD, hernia repair and tonsillectomy. ALLERGIES: CHARTED. FAMILY HISTORY: Negative for premature coronary artery disease. SOCIAL HISTORY: Negative for current smoking, EtOH abuse or drug abuse. REVIEW OF SYSTEMS: HEENT is unremarkable. CARDIAC: As described above. RESPIRATORY: Negative. GI: As described above. GENITOURINARY: Negative. ALLERGY/IMMUNOLOGY: Negative. SKIN: Negative. MUSCULOSKELETAL: Significant for arthritis. PSYCHOSOCIAL: Negative. DERMATOLOGY: Negative. CONSTITUTIONAL: Negative. ONCOLOGICAL: Negative. [employer]: Negative. MEDICATIONS: Home medications include Flomax, spironolactone, nitrofurantoin, Lopressor, Proscar, Colace, Plavix, Keflex, Lipitor, Eliquis and amiodarone. PHYSICAL EXAMINATION: Heart rate is around 110 beats per minute, blood pressure is 96/60 after fluid, respiratory rate is 18, afebrile. Chest exam reveals diminished air entry at the bases. Heart exam reveals first and second heart sounds and a systolic murmur at the left lower sternal border. Abdomen is soft. Examination of extremities reveals mild edema bilaterally. ASSESSMENT: 1. Wide-complex tachycardia, probably ventricular tachycardia. 2. History of AICD. 3. Coronary artery disease, status post multivessel angioplasty. 4. Bowel obstruction, status post surgery. PLAN: I will check a magnesium on him, start him on amiodarone. He is going to receive a bolus and then will be started on a drip. We will obtain a 2D echo on him to document his LV function, start him on beta blockers, blood pressure permitting. Continue the aspirin, Plavix and the Eliquis that he is on for DVT. MMODL / IJN: [id number] /
--- NOTE | 2021-12-12 12:21 | P.CNPUL ---
History of Present Illness Consult date: 12/12/21 Requesting physician: Aparna Cee Reason for consult: other Chief complaint: Hypotension, sepsis, bowel obstruction, hydronephrosis. History of present illness: Pulmonary/critical care consultation dated 12/12/2021. 80-year-old male who was initially seen in the emergency department, on , for nausea and vomiting. For a week or so prior to admission, the patient admits to ongoing nausea and vomiting. He apparently told the ER physician that anything he eats, he vomits. He was not able to take his usual medications. The patient was recently diagnosed with an obstructive kidney stone, and was scheduled for a ureteral stent. He apparently denied fever when he was in the emergency department. He does have some minimal stool output from his colostomy. He denied any abdominal pain. We are asked to see him today, after his been in the hospital since December 08. Apparently he was found to have hypotension, and wasn't looking very good, and we decided to move him to the intensive care unit for further monitoring and management. 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 Also, on December 09, the patient underwent an exploratory laparotomy, extensive lysis of adhesions, and repair of parastomal hernia. The patient also had a small bowel resection. This was done because of bowel obstruction. Urine sampling from December 08 revealed evidence of pseudomonas aeruginosa. White count 22.68, hemoglobin 10.9, hematocrit 33.7, and platelet count 219,000. Sodium 141, potassium 3.8, chlorides 111, CO2 14, anion gap 17, BUN 38, and creatinine 1.8. AST was 387, and ALT was 467. Those are both increasing. Also, urine sampling from December 18 revealed what appears to be a urinary tract infection. Chest x-ray back from December 08 did not show anything acute. Cardiology saw the patient in consultation and ordered amiodarone, lidocaine, and Lopressor. EKG done on 5 N., revealed a wide-complex tachycardia, and a new bundle branch block. Review of Systems REVIEW OF SYSTEMS: CONSTITUTIONAL: [Negative.] NEUROLOGIC: [ Negative.] HEENT: [ Negative.] CARDIAC: [Negative.] PULMONARY: [Negative.] GI: Abdominal pain. : [Negative.] RHEUMATOLOGIC: [ Negative.] IMMUNOLOGIC: [ Negative.] ENDOCRINE: [Negative. ] DERMATOLOGIC: [Negative.] Past Medical History Past Medical History: Coronary Artery Disease (CAD), Cancer, COPD, Deep Vein Thrombosis (DVT), Hyperlipidemia, Hypertension, Osteoarthritis (OA), Sleep Apnea/CPAP/BIPAP Additional Past Medical History / Comment(s): colon cancer, SKIN CANCER, colostomy, vertigo, kidney stones, states very nauseated currently, DVT 03/2021 left leg, not using CPAP, currently on Rx for UTI Last Myocardial Infarction Date:: 03/2021 History of Any Multi-Drug Resistant Organisms: None Reported Past Surgical History: Adenoidectomy, AICD, Bowel Resection, Cardiac Ablation, Heart Catheterization With Stent, Hernia Repair, Pacemaker, Tonsillectomy Additional Past Surgical History / Comment(s): colostomy, two cardiac stents, Past Anesthesia/Blood Transfusion Reactions: No Reported Reaction Additional Past Anesthesia/Blood Transfusion Reaction / Comment(s): Pt received blood in the past without reaction. Date of Last Stent Placement:: 2020 Type of Cardiac Device: AICD Device Placement Date:: 04/01/2021 Past Psychological History: No Psychological Hx Reported Smoking Status: Never smoker - Past Family History Mother Family Medical History: Cancer Additional Family Medical History / Comment(s): Breast cancer. Father Additional Family Medical History / Comment(s): Valve replacement and pacemaker. Brother(s) Family Medical History: Coronary Artery Disease (CAD) Additional Family Medical History / Comment(s): CABG. Medications and Allergies Home Medications Medication Instructions Recorded Confirmed Type Atorvastatin [Lipitor] 40 mg PO HS 05/24/16 12/08/21 History Amiodarone [Cordarone] 200 mg PO BID 06/13/21 12/08/21 History Cholecalciferol [Vitamin D3 (25 50 mcg PO DAILY@1200 06/13/21 12/08/21 History Mcg = 1000 Iu)] Clopidogrel [Plavix] 75 mg PO DAILY 06/13/21 12/08/21 History Finasteride [Proscar] 5 mg PO DAILY 06/13/21 12/08/21 History Metoprolol Tartrate [Lopressor] 12.5 mg PO BID 06/13/21 12/08/21 History Sodium Bicarbonate Tab 650 mg PO TID 06/13/21 12/08/21 History Tamsulosin [Flomax] 0.4 mg PO HS 06/13/21 12/08/21 History Apixaban [Eliquis] 5 mg PO BID 07/16/21 12/08/21 History Calcium Acetate 667 mg PO W/BRKFST 12/01/21 12/08/21 History Cephalexin [Keflex] 500 mg PO Q6HR 10 Days #40 cap 12/01/21 12/08/21 Rx HYDROcodone/APAP 5-325MG [[place] 1 tab PO Q6HR PRN 3 Days #12 tab 12/01/21 12/08/21 Rx 5-325] Spironolactone 12.5 mg PO DAILY 12/01/21 12/08/21 History calcitrioL [Rocaltrol] 0.25 mcg PO WE@1200 12/01/21 12/08/21 History Nitrofurantoin Macrocrystal 100 mg PO TID 12/07/21 12/08/21 History [Nitrofurantoin] Docusate [Colace] 300 mg PO DAILY 12/08/21 12/08/21 History Ondansetron Odt [Zofran Odt] 4 mg PO Q6H PRN 12/08/21 12/08/21 History Allergies Allergy/AdvReac Type Severity Reaction Status Date / Time No Known Allergies Allergy Verified 12/08/21 10:29 Physical Exam Osteopathic Statement: *. No significant issues noted on an osteopathic structural exam other than those noted in the History and Physical/Consult. Vitals: Vital Signs Temp Pulse Resp BP BP Pulse Ox 12/12/21 10:47 110 H 22 79/57 92 L 12/12/21 07:25 97.6 F 75 20 87/60 94 L 12/12/21 04:13 97.5 F L 83 20 99/63 93 L 12/11/21 19:30 98.2 F 73 20 94/61 93 L 12/11/21 12:33 97.4 F L 96 20 109/70 93 L Intake and Output 12/11/21 12/12/21 12/12/21 21:59 06:59 14:59 Intake Total Output Total Balance Intake: Intake, IV Titration Amount Lactated Ringers 1,000 ml @ 125 mls/hr IV .Q8H [facility] Rx#:[id number] Piperacillin-Tazobactam 3 .375 gm In Sodium Chloride 0.9% 100 ml @ 25 mls/hr IVPB Q8HR [facility] Rx# :[id number] Oral Output: Gastric Drainage Urine Uretheral (Meza) Other: Voiding Method Indwelling Catheter No acute distress, oriented, the patient is pale, and looks chronically ill. HEENT examination is grossly unremarkable. NG tube is noted. Neck supple. Full range of motion. No adenopathy thyromegaly or neck vein distention. Cardiovascular examination reveals regular rhythm rate. S1-S2 normal. No S3 or S4. No discernible murmur noted. Heart rate 130 bpm. Lungs reveal scattered mild rhonchi. No wheezes or crackles. Breath sounds equal. Saturations 94% on 2 L. Abdomen soft without bowel sounds. A dressing is noted over the recent exploratory laparotomy. There is a colostomy in the left lower quadrant. Extremities are intact. No cyanosis clubbing or edema. Skin is without rash or lesion. Neurologic examination is brief but nonfocal. Results - Laboratory Findings CBC and BMP: 12/11/21 06:49 12/11/21 06:49 PT/INR, D-dimer PT 12.9 sec (9.0-12.0) H 12/08/21 10:33 INR 1.2 (<1.2) H 12/08/21 10:33 Abnormal lab findings: Abnormal Labs 12/08/21 12/08/21 12/08/21 10:33 10:33 10:33 WBC 18.1 H RBC 4.06 L Hgb 12.9 L Hct 38.1 L MCV Neutrophils # 16.0 H Neutrophils # (Manual) Lymphocytes # 0.8 L Metamyelocytes # (Man) PT 12.9 H INR 1.2 H Sodium 129 L Potassium 3.0 L Chloride 97 L Carbon Dioxide 19 L BUN 58 H Creatinine 2.39 H Est GFR (CKD-EPI)AfAm Est GFR (CKD-EPI)NonAf BUN/Creatinine Ratio Glucose 100 H POC Glucose (mg/dL) Calcium Total Bilirubin AST 114 H ALT 185 H Alkaline Phosphatase Total Protein 6.0 L Albumin 3.3 L Albumin/Globulin Ratio Amylase 142 H Lipase 969 H Urine Protein Urine Blood Ur Leukocyte Esterase Urine RBC Urine WBC Urine Bacteria Urine Mucus 12/08/21 12/09/21 12/09/21 18:35 06:19 06:19 WBC 17.6 H RBC 3.76 L Hgb 12.2 L Hct 37.7 L MCV 100.2 H D Neutrophils # Neutrophils # (Manual) 15.30 H Lymphocytes # Metamyelocytes # (Man) 0.35 H PT INR Sodium 132 L Potassium Chloride 108 H Carbon Dioxide 14 L BUN 45 H Creatinine 1.81 H Est GFR (CKD-EPI)AfAm Est GFR (CKD-EPI)NonAf BUN/Creatinine Ratio Glucose 69 L POC Glucose (mg/dL) Calcium 7.5 L Total Bilirubin AST 142 H ALT 237 H Alkaline Phosphatase Total Protein 5.1 L Albumin 2.4 L Albumin/Globulin Ratio Amylase Lipase Urine Protein Trace H Urine Blood Large H Ur Leukocyte Esterase Large H Urine RBC 7 H Urine WBC 114 H Urine Bacteria Occasional H Urine Mucus Occasional H 12/10/21 12/10/21 12/11/21 09:50 09:50 06:49 WBC 19.1 H 22.68 H RBC 3.71 L 3.50 L Hgb 11.8 L 10.9 L Hct 36.4 L 33.7 L MCV Neutrophils # 17.7 H Neutrophils # (Manual) Lymphocytes # 0.4 L Metamyelocytes # (Man) PT INR Sodium Potassium Chloride 111 H Carbon Dioxide 15 L BUN 39 H Creatinine 1.76 H Est GFR (CKD-EPI)AfAm Est GFR (CKD-EPI)NonAf BUN/Creatinine Ratio Glucose POC Glucose (mg/dL) Calcium 7.6 L Total Bilirubin 1.8 H AST 303 H ALT 387 H Alkaline Phosphatase Total Protein 4.5 L Albumin 2.2 L Albumin/Globulin Ratio Amylase Lipase Urine Protein Urine Blood Ur Leukocyte Esterase Urine RBC Urine WBC Urine Bacteria Urine Mucus 12/11/21 12/12/21 06:49 11:22 WBC RBC Hgb Hct MCV Neutrophils # Neutrophils # (Manual) Lymphocytes # Metamyelocytes # (Man) PT INR Sodium Potassium Chloride 111 H Carbon Dioxide 13.5 L BUN 38.3 H Creatinine 1.8 H Est GFR (CKD-EPI)AfAm 40.3 L Est GFR (CKD-EPI)NonAf 34.8 L BUN/Creatinine Ratio 21.28 H Glucose 118 H POC Glucose (mg/dL) 167 H Calcium 7.8 L Total Bilirubin 2.70 H AST 387 H ALT 467 H Alkaline Phosphatase 308 H Total Protein 3.8 L Albumin 2.2 L Albumin/Globulin Ratio 1.38 L Amylase Lipase Urine Protein Urine Blood Ur Leukocyte Esterase Urine RBC Urine WBC Urine Bacteria Urine Mucus Assessment and Plan Assessment: Pseudomonas aeruginosa urinary tract infection, and likely sepsis. Wide-complex tachycardia, new since admission. Status post exploratory laparotomy, lysis of adhesions, repair of parastomal hernia, small bowel resection, 12/09/2021. Status post left ureteral stent, for hydronephrosis and renal calculi, 12/09/2021. Worsening transaminitis, which may relate to underlying cholecystitis. Anion gap metabolic acidosis, likely related to underlying sepsis. History of CAD, status post heart catheterization with stent placement. History of AICD placement. History of sleep apnea syndrome. History of hyperlipidemia. History of hypertension. History of colon cancer, status post colectomy with colostomy. History of deep venous thrombosis. Multiple other medical problems and comorbidities. Plan: Plan dated 12/12/2021. Patient is evaluated up on 5 N. The patient is transferred down to the intensive care unit for further monitoring and management. The patient has been seen by cardiology for his tachycardia arrhythmia. Labs, x-rays, and medications are reviewed. The patient is currently on Zosyn for his pseudomonas aeruginosa urinary tract infection, and possible sepsis. We will continue to follow make recommendations where appropriate. Prognosis is guarded. We will notified about this patient, from the hospital service. Time with Patient: Greater than 30
[2021-12-12 12:27] LABS: RBC Morphology Normal
[2021-12-12] MEDS ORDERED: POTASSIUM CHLORIDE 20 MEQ in WATER FOR INJECTION 1 100ML.BAG IVPB ONE (13:00)
[2021-12-12] MEDS ORDERED: HEPARIN SODIUM 1,000 UN/ML (10ML VL) IV PRN (14:09)
[2021-12-12] MEDS: HEPARIN SOD,PORK IN 0.45% NACL 25,000 UNIT in 0.45% NACL 1 250ML.BAG IV SCH (14:42)
--- NOTE | 2021-12-12 14:50 | XR ---
EXAMINATION TYPE: XR chest 1V confirm line [facility] DATE OF EXAM: 12/12/2021 COMPARISON: 12/08/2021 HISTORY: Short of breath TECHNIQUE: FINDINGS: There is some atelectasis at both lung bases. No heart failure seen. There is nasogastric t ube looped in the gastric fundus. There is left axillary pacemaker. There is poor inspiration. IMPRESSION: There is some atelectasis at the lung bases which appears increased compared to old exam . No heart failure.
[2021-12-12 14:52] LABS: INR 1.5 (<1.2); Partial Thromboplastin Time 31.4 sec (22.0-30.0); Prothrombin Time 15.1 sec (9.0-12.0)
--- NOTE | 2021-12-12 15:07 | PCN ---
PROCEDURE NOTE PULMONARY/CRITICAL CARE PROCEDURE NOTE: Placement of left subclavian triple-lumen catheter. PREOPERATIVE DIAGNOSIS: Administration of fluids and pressors. POSTOPERATIVE DIAGNOSIS: Administration of fluids and pressors. OPERATORS: 1. Dr. Britt. 2. Dr. Cyr. PROCEDURE DESCRIPTION: There was informed consent, and a universal time-out was completed verifying correct patient, procedure, site, positioning, and implant(s) or special equipment if applicable. The patient was placed in a dependent position appropriate for triple-lumen catheter placement based on the vein to be cannulated. The patient's left shoulder was prepped and draped in sterile fashion. Lidocaine 1% was used to anesthetize the surrounding skin area. A triple-lumen 9F Cordis catheter was introduced into the left subclavian vein using Seldinger technique. The catheter was threaded smoothly over the guidewire and appropriate blood return was obtained. There was good blood return from all three ports. Each lumen of the catheter was evacuated of air and flushed with sterile saline. The catheter was then sutured in place to the skin and a sterile dressing applied by the nurse. Perfusion to the extremity distal to the point of catheter insertion was checked and found to be adequate. There was no immediate complication. A chest x-ray was ordered to check placement and rule out pneumothorax. The patient tolerated the procedure well. MMODL / SHARRIN: [id number] /
[2021-12-12 17:45] LABS: Glucose,Whole Blood 137 mg/dL (75-99)
[2021-12-12] MEDS ORDERED: AMIODARONE 360 MG in DEXTROSE 5% IN WATER 200 ML IV ONE ×2 (20:30)
[2021-12-12] MEDS: ATORVASTATIN 40 MG TAB PO SCH (20:34)
[2021-12-12] MEDS: TAMSULOSIN 0.4 MG CAP.ER.24H PO SCH (20:39)
[2021-12-13] MEDS: PIPERACILLIN-TAZOBACTAM 3.375 GM in SODIUM CHLORIDE 0.9% 100 ML IVPB SCH ×3 (00:34→16:03)
[2021-12-13] MEDS: AMIODARONE 450 MG in DEXTROSE 5% IN WATER 250 ML IV SCH ×4 (01:43→16:03)
[2021-12-13 06:29] LABS: Calcium 7.9 mg/dL (8.4-10.2)
[2021-12-13 06:31] LABS: Potassium 3.8 mmol/L (3.5-5.1)
[2021-12-13 06:32] LABS: HCT 42.2 % (39.0-53.0); HGB 13.8 gm/dL (13.0-17.5); MCH 32.2 pg (25.0-35.0); MCHC 32.6 g/dL (31.0-37.0); MCV 98.7 fL (80.0-100.0); Mean Platelet Volume 9.4; Platelet Count 190 k/uL (150-450); RBC 4.27 m/uL (4.30-5.90); RDW 14.4 % (11.5-15.5); WBC 38.8 k/uL (3.8-10.6)
[2021-12-13 06:42] LABS: INR 1.3 (<1.2); Partial Thromboplastin Time 41.8 sec (22.0-30.0)
[2021-12-13] MEDS ORDERED: Potassium Replacement Protocol 1 EACH MISC MISCELLANE PRN (07:17)
--- NOTE | 2021-12-13 08:27 | P.PN ---
Subjective Progress Note Date: 12/13/21 Principal diagnosis: Ventricular tachycardia The patient is an 80-year-old gentleman with a past medical history significant for CAD and prior stenting of the RCA and LAD as well as ischemic cardiomyopathy and status post AICD and also status post VT ablation in 2020 as well as hypertension and dyslipidemia was admitted to the hospital with abdominal discomfort and underwent exploratory laparotomy with lysis of adhesion and repair of parastomal hernia and small bowel resection. The patient was transferred to the intensive care unit yesterday because he did have an episode of wide complex tachycardia to me looks like ventricular tachycardia. He was started on amiodarone IV. The patient was seen this morning. He reports no pain in the chest or any shortness of breath at this point. He is on amiodarone IV at this point. I'm going to continue the amiodarone IV for now. I'm going to DC metoprolol tartrate start the patient on metoprolol succinate. Also start the patient on mexiletine. His electrolytes are within normal limits. We'll rule out acute coronary event by checking the patient's serial cardiac enzymes. An echo still pending. Objective - Vital Signs Vital signs: Vital Signs Temp 97.9 F 12/13/21 04:00 Pulse 84 12/13/21 07:00 Resp 24 12/13/21 07:00 BP 120/69 12/13/21 07:00 Pulse Ox 93 L 12/13/21 07:00 Intake & Output 12/12/21 12/13/21 12/13/21 18:59 06:59 18:59 Intake Total 9576.546 3004.256 150 Output Total 200 370 425 Balance 6159.401 0647.256 -275 Weight 90.4 kg Intake: IV 1950 1775 150 Lactated Ringers 1,000 ml 1750 1500 125 @ 125 mls/hr IV .Q8H [facility] Rx#:[id number] Piperacillin-Tazobactam 3 200 275 25 .375 gm In Sodium Chloride 0.9% 100 ml @ 25 mls/hr IVPB Q8HR [facility] Rx# :[id number] Intake, IV Titration 14.727 77.256 Amount Heparin Sod,Pork in 0.45% 77.256 NaCl 25,000 unit In 0.45 % NaCl 1 250ml.bag @ 12 UNITS/KG/HR 9.308 mls/hr IV .Q24H [facility] Rx#: [id number] Norepinephrine 4 mg In 14.727 Sodium Chloride 0.9% 250 ml @ 0.05 MCG/KG/MIN 14. 776 mls/hr IV .[id number] [facility] Rx#:[id number] Output: Gastric Drainage 400 Urine 200 370 25 Other: Voiding Method Indwelling Catheter Indwelling Catheter - Constitutional General appearance: Present: no acute distress - Respiratory Respiratory: bilateral: diminished - Cardiovascular Rhythm: regular Heart sounds: normal: S1, S2 - Labs CBC & Chem 7: 12/13/21 05:28 12/13/21 05:28 Labs: Abnormal Lab Results - Last 24 Hours (Table) 12/12/21 12/12/21 12/12/21 Range/Units 11:22 11:46 11:46 WBC (3.8-10.6) k/uL RBC (4.30-5.90) m/uL Hgb (13.0-17.5) gm/dL Hct (39.0-53.0) % Neutrophils # (1.3-7.7) k/uL Lymphocytes # (1.0-4.8) k/uL Monocytes # (0-1.0) k/uL PT (9.0-12.0) sec INR (<1.2) APTT (22.0-30.0) sec Chloride 113 H (98-107) mmol/L Carbon Dioxide 15 L (22-30) mmol/L BUN 56 H (9-20) mg/dL Creatinine 2.05 H (0.66-1.25) mg/dL Glucose 170 H (74-99) mg/dL POC Glucose (mg/dL) 167 H (75-99) mg/dL Calcium 7.9 L (8.4-10.2) mg/dL Total Bilirubin 1.9 H (0.2-1.3) mg/dL AST 157 H (17-59) U/L ALT 313 H (4-49) U/L Alkaline Phosphatase 309 H (38-126) U/L Troponin I (0.000-0.034) ng/mL Total Protein 4.2 L (6.3-8.2) g/dL Albumin 2.0 L (3.5-5.0) g/dL Procalcitonin 1.11 H (0.02-0.09) ng/mL 12/12/21 12/12/21 12/12/21 Range/Units 11:46 11:46 14:20 WBC 38.0 H (3.8-10.6) k/uL RBC 3.89 L (4.30-5.90) m/uL Hgb 12.5 L (13.0-17.5) gm/dL Hct 38.2 L (39.0-53.0) % Neutrophils # 35.9 H (1.3-7.7) k/uL Lymphocytes # 0.7 L (1.0-4.8) k/uL Monocytes # 1.2 H (0-1.0) k/uL PT 15.1 H (9.0-12.0) sec INR 1.5 H (<1.2) APTT 31.4 H (22.0-30.0) sec Chloride (98-107) mmol/L Carbon Dioxide (22-30) mmol/L BUN (9-20) mg/dL Creatinine (0.66-1.25) mg/dL Glucose (74-99) mg/dL POC Glucose (mg/dL) (75-99) mg/dL Calcium (8.4-10.2) mg/dL Total Bilirubin (0.2-1.3) mg/dL AST (17-59) U/L ALT (4-49) U/L Alkaline Phosphatase (38-126) U/L Troponin I 0.037 H* (0.000-0.034) ng/mL Total Protein (6.3-8.2) g/dL Albumin (3.5-5.0) g/dL Procalcitonin (0.02-0.09) ng/mL 12/12/21 12/12/21 12/13/21 Range/Units 17:44 21:48 05:28 WBC (3.8-10.6) k/uL RBC (4.30-5.90) m/uL Hgb (13.0-17.5) gm/dL Hct (39.0-53.0) % Neutrophils # (1.3-7.7) k/uL Lymphocytes # (1.0-4.8) k/uL Monocytes # (0-1.0) k/uL PT 14.0 H (9.0-12.0) sec INR 1.3 H (<1.2) APTT 74.1 H 41.8 H (22.0-30.0) sec Chloride (98-107) mmol/L Carbon Dioxide (22-30) mmol/L BUN (9-20) mg/dL Creatinine (0.66-1.25) mg/dL Glucose (74-99) mg/dL POC Glucose (mg/dL) 137 H (75-99) mg/dL Calcium (8.4-10.2) mg/dL Total Bilirubin (0.2-1.3) mg/dL AST (17-59) U/L ALT (4-49) U/L Alkaline Phosphatase (38-126) U/L Troponin I (0.000-0.034) ng/mL Total Protein (6.3-8.2) g/dL Albumin (3.5-5.0) g/dL Procalcitonin (0.02-0.09) ng/mL 12/13/21 12/13/21 Range/Units 05:28 05:28 WBC 38.8 H (3.8-10.6) k/uL RBC 4.27 L (4.30-5.90) m/uL Hgb (13.0-17.5) gm/dL Hct (39.0-53.0) % Neutrophils # (1.3-7.7) k/uL Lymphocytes # (1.0-4.8) k/uL Monocytes # (0-1.0) k/uL PT (9.0-12.0) sec INR (<1.2) APTT (22.0-30.0) sec Chloride 115 H (98-107) mmol/L Carbon Dioxide 15 L (22-30) mmol/L BUN 57 H (9-20) mg/dL Creatinine 1.81 H (0.66-1.25) mg/dL Glucose 129 H (74-99) mg/dL POC Glucose (mg/dL) (75-99) mg/dL Calcium 7.9 L (8.4-10.2) mg/dL Total Bilirubin (0.2-1.3) mg/dL AST (17-59) U/L ALT (4-49) U/L Alkaline Phosphatase (38-126) U/L Troponin I (0.000-0.034) ng/mL Total Protein (6.3-8.2) g/dL Albumin (3.5-5.0) g/dL Procalcitonin (0.02-0.09) ng/mL Microbiology - Last 24 Hours (Table) 12/08/21 16:46 Blood Culture - Preliminary Blood No Growth after 96 hours Assessment and Plan Assessment: Assessment #1 status post exploratory laparotomy #2 sustained ventricular tachycardia #3 coronary artery disease #4 ischemic cardiomyopathy #5 status post VT ablation #Multiple comorbid conditions Plan #1 continue amiodarone #2 start the patient on mexiletine #3 DC metoprolol tartrate and start the patient on metoprolol succinate #4 rule out acute coronary event #5 follow-up on the echocardiogram
[2021-12-13] MEDS: NOREPINEPHRINE 4 MG in SODIUM CHLORIDE 0.9% 250 ML IV SCH (08:57)
[2021-12-13] MEDS ORDERED: ENOXAPARIN 30 MG/0.3 ML SYRINGE SQ SCH (09:00)
[2021-12-13] MEDS: FAMOTIDINE 20 MG/2 ML VIAL IV SCH (09:22)
[2021-12-13] MEDS: POTASSIUM CHLORIDE 10 MEQ in WATER FOR INJECTION 1 100ML.BAG IVPB SCH ×2 (09:22→10:45)
[2021-12-13 09:49] LABS: Creatine Kinase MB 2.7 ng/mL (0.0-2.4)
[2021-12-13 09:55] LABS: Troponin I 0.045 ng/mL (0.000-0.034)
[2021-12-13] MEDS: MEXILETINE 150 MG CAP PO SCH ×2 (10:08→21:09)
[2021-12-13] MEDS: SPIRONOLACTONE 25 MG TAB PO SCH (10:10)
[2021-12-13] MEDS: LACTATED RINGERS 1,000 ML IV SCH (10:11)
[2021-12-13] MEDS: METOPROLOL SUCCINATE (ER) 25 MG TAB.ER.24H PO SCH ×2 (10:44→21:09)
[2021-12-13] MEDS: FINASTERIDE 5 MG TAB PO SCH (10:45)
--- NOTE | 2021-12-13 10:55 | P.PN ---
Subjective Progress Note Date: 12/13/21 80-year-old male who was initially seen in the emergency department, on 12/08/2021, for nausea and vomiting. For a week or so prior to admission, the patient admits to ongoing nausea and vomiting. He apparently told the ER physician that anything he eats, he vomits. He was not able to take his usual m edications. The patient was recently diagnosed with an obstructive kidney stone, and was scheduled for a ureteral stent. He apparently denied fever when he was in the emergency department. He does have some minimal stool output from his colostomy. He denied any abdominal pain. We are asked to see him today, after his been in the hospital since December 08. Apparently he was found to have hypotension, and wasn't looking very good, and we decided to move him to the intensive care unit for further monitoring and management. 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 Also, on December 09, the patient underwent an exploratory laparotomy, extensive lysis of adhesions, and repair of parastomal hernia. The patient also had a small bowel resection. This was done because of bowel obstruction. Urine sampling from December 08 revealed evidence of pseudomonas aeruginosa. White count 22.68, hemoglobin 10.9, hematocrit 33.7, and platelet count 219,000. Sodium 141, potassium 3.8, chlorides 111, CO2 14, anion gap 17, BUN 38, and creatinine 1.8. AST was 387, and ALT was 467. Those are both increasing. Also, urine sampling from December 18 revealed what appears to be a urinary tract infection. Chest x-ray back from December 08 did not show anything acute. Cardiology saw the patient in consultation and ordered amiodarone, lidocaine, and Lopressor. EKG done on 5 N., revealed a wide-complex tachycardia, and a new bundle branch. history significant for CAD and prior stenting of the RCA and LAD as well as ischemic cardiomyopathy and status post AICD and also status post VT ablation in 202012/13/2021, the patient is in the intensive care unit. His current cardiac rhythm is sinus. He is having runs of episodic atrial fibrillation. There is still having episodes of nonsustained ventricular tachycardia. The patient was seen by cardiology. He remains on amiodarone drip which is running at 0.5 mcg/kg per minute and the patient remains on IV heparin. This morning, cardiology evaluated the patient and put him on a beta christelle and the patient is currently on Toprol-XL 25 mg twice a day and the patient was also started on Mexitil at a dose of 150 milligrams by mouth twice a day. The patient's blood pressure currently is at 124/75. He is on no pressors. He is receiving lactated Ringer at the rate of 20 mL an hour. He is free of any chest pain. His blood work shows a BUN of 57 with a creatinine of 1.8 and the creatinine is at 3.8 and the sodium level is at 140. Normal potassium of 3.8. Lactic acid level was down to 1.8. Troponins were 0.04 and 0.03 respectively 2. His pro- calcitonin level was 1.1. Note that his white cell count is at 38 which is comparable to yesterday and the patient also has a hemoglobin of 13.8 and a platelet count of 190. As mentioned, he had a pseudomonal urinary tract infection. The patient will remains on IV Zosyn. Echo was obtained this morning and the results are still pending for now. His liver function tests were also abnormal. His AST of 157 and ALT of 313 and an alkaline phosphatase of 309. His bilirubin is currently at 1.9. Ultrasound of the liver that was obtained on 12/11/2021 showed limitation due to his body habitus and bowel gas pattern. There was cholelithiasis with distention of the gallbladder possibly indicating an acute cholecystitis. There was still evidence of hydronephrosis of the right kidney stone measuring 1.5 cm in the right kidney was mildly hydro nephrotic. His original CAT scan of the abdomen and pelvis that was on 12/08/2021 showed high-grade mechanical small bowel obstruction with transition point in the left lower quadrant in addition to a parastomal hernia. There was also significant wall thickening of the colon just proximal to the colostomy and surrounding area of an acute inflammatory change with her underlying colitis/diverticulitis not being completely excluded. There was also left distal ureteral obstruction with stone and moderate degree of left-sided hydroureter and hydronephrosis. He has NGT and the output was 400 cc over 12 hour Objective - Vital Signs Vital signs: Vital Signs Temp 97.6 F 12/13/21 08:00 Pulse 92 12/13/21 10:00 Resp 25 H 12/13/21 10:00 BP 93/82 12/13/21 10:00 Pulse Ox 90 L 12/13/21 10:00 Intake & Output 12/12/21 12/13/21 12/13/21 18:59 06:59 18:59 Intake Total 9097.839 5203.256 802.431 Output Total 200 370 585 Balance 6666.207 3990.256 217.431 Weight 90.4 kg Intake: IV 1950 1775 725 Lactated Ringers 1,000 ml 1750 1500 500 @ 125 mls/hr IV .Q8H [facility] Rx#:[id number] Piperacillin-Tazobactam 3 200 275 125 .375 gm In Sodium Chloride 0.9% 100 ml @ 25 mls/hr IVPB Q8HR [facility] Rx# :[id number] Potassium Chloride 10 meq 100 In Water For Injection 1 100ml.bag @ 100 mls/hr IVPB Q1H [facility] Rx#: [id number] Intake, IV Titration 14.727 77.256 77.431 Amount Heparin Sod,Pork in 0.45% 77.256 77.431 NaCl 25,000 unit In 0.45 % NaCl 1 250ml.bag @ 12 UNITS/KG/HR 9.308 mls/hr IV .Q24H [facility] Rx#: [id number] Norepinephrine 4 mg In 14.727 Sodium Chloride 0.9% 250 ml @ 0.05 MCG/KG/MIN 14. 776 mls/hr IV .[id number] [facility] Rx#:[id number] Output: Gastric Drainage 400 Urine 200 370 185 Other: Voiding Method Indwelling Catheter Indwelling Catheter - Exam No acute distress, oriented, the patient is pale, and looks chronically ill. Currently on 2 L of oxygen by nasal cannula. NG tube is also in place. Head exam was generally normal. There was no scleral icterus or corneal arcus. Mucous membranes were moist. HEENT examination is grossly unremarkable. NG tube is noted. Neck supple. Full range of motion. No adenopathy thyromegaly or neck vein distention. Cardiovascular examination reveals regular rhythm rate. S1-S2 normal. No S3 or S4. No discernible murmur noted The patient has a pacemaker pocket over the left anterior chest area/AICD pocket. Lungs reveal scattered mild rhonchi. No wheezes or crackles. Breath sounds equal. Saturations 94% on 2 L. Abdomen soft without bowel sounds. A dressing is noted over the recent exploratory laparotomy. There is a colostomy in the left lower quadrant. The colostomy site is quite pale and nonfunctional this point in time. There is no output in the colostomy bag. No direct tenderness in the right upper quadrant. No rebound tenderness no guarding. Surgical wound site is dry clean and intact. Bowel sounds are extensively hypoactive. Extremities are intact. No cyanosis clubbing or edema. Skin is without rash or lesion. Neurologic examination is brief but nonfocal. - Labs CBC & Chem 7: 12/13/21 05:28 12/13/21 05:28 Labs: Abnormal Lab Results - Last 24 Hours (Table) 12/12/21 12/12/21 12/12/21 Range/Units 11:22 11:46 11:46 WBC (3.8-10.6) k/uL RBC (4.30-5.90) m/uL Hgb (13.0-17.5) gm/dL Hct (39.0-53.0) % Neutrophils # (1.3-7.7) k/uL Lymphocytes # (1.0-4.8) k/uL Monocytes # (0-1.0) k/uL PT (9.0-12.0) sec INR (<1.2) APTT (22.0-30.0) sec Chloride 113 H (98-107) mmol/L Carbon Dioxide 15 L (22-30) mmol/L BUN 56 H (9-20) mg/dL Creatinine 2.05 H (0.66-1.25) mg/dL Glucose 170 H (74-99) mg/dL POC Glucose (mg/dL) 167 H (75-99) mg/dL Calcium 7.9 L (8.4-10.2) mg/dL Total Bilirubin 1.9 H (0.2-1.3) mg/dL AST 157 H (17-59) U/L ALT 313 H (4-49) U/L Alkaline Phosphatase 309 H (38-126) U/L CK-MB (CK-2) (0.0-2.4) ng/mL Troponin I (0.000-0.034) ng/mL Total Protein 4.2 L (6.3-8.2) g/dL Albumin 2.0 L (3.5-5.0) g/dL Procalcitonin 1.11 H (0.02-0.09) ng/mL 12/12/21 12/12/21 12/12/21 Range/Units 11:46 11:46 14:20 WBC 38.0 H (3.8-10.6) k/uL RBC 3.89 L (4.30-5.90) m/uL Hgb 12.5 L (13.0-17.5) gm/dL Hct 38.2 L (39.0-53.0) % Neutrophils # 35.9 H (1.3-7.7) k/uL Lymphocytes # 0.7 L (1.0-4.8) k/uL Monocytes # 1.2 H (0-1.0) k/uL PT 15.1 H (9.0-12.0) sec INR 1.5 H (<1.2) APTT 31.4 H (22.0-30.0) sec Chloride (98-107) mmol/L Carbon Dioxide (22-30) mmol/L BUN (9-20) mg/dL Creatinine (0.66-1.25) mg/dL Glucose (74-99) mg/dL POC Glucose (mg/dL) (75-99) mg/dL Calcium (8.4-10.2) mg/dL Total Bilirubin (0.2-1.3) mg/dL AST (17-59) U/L ALT (4-49) U/L Alkaline Phosphatase (38-126) U/L CK-MB (CK-2) (0.0-2.4) ng/mL Troponin I 0.037 H* (0.000-0.034) ng/mL Total Protein (6.3-8.2) g/dL Albumin (3.5-5.0) g/dL Procalcitonin (0.02-0.09) ng/mL 12/12/21 12/12/21 12/13/21 Range/Units 17:44 21:48 05:28 WBC (3.8-10.6) k/uL RBC (4.30-5.90) m/uL Hgb (13.0-17.5) gm/dL Hct (39.0-53.0) % Neutrophils # (1.3-7.7) k/uL Lymphocytes # (1.0-4.8) k/uL Monocytes # (0-1.0) k/uL PT 14.0 H (9.0-12.0) sec INR 1.3 H (<1.2) APTT 74.1 H 41.8 H (22.0-30.0) sec Chloride (98-107) mmol/L Carbon Dioxide (22-30) mmol/L BUN (9-20) mg/dL Creatinine (0.66-1.25) mg/dL Glucose (74-99) mg/dL POC Glucose (mg/dL) 137 H (75-99) mg/dL Calcium (8.4-10.2) mg/dL Total Bilirubin (0.2-1.3) mg/dL AST (17-59) U/L ALT (4-49) U/L Alkaline Phosphatase (38-126) U/L CK-MB (CK-2) (0.0-2.4) ng/mL Troponin I (0.000-0.034) ng/mL Total Protein (6.3-8.2) g/dL Albumin (3.5-5.0) g/dL Procalcitonin (0.02-0.09) ng/mL 12/13/21 12/13/21 12/13/21 Range/Units 05:28 05:28 08:31 WBC 38.8 H (3.8-10.6) k/uL RBC 4.27 L (4.30-5.90) m/uL Hgb (13.0-17.5) gm/dL Hct (39.0-53.0) % Neutrophils # (1.3-7.7) k/uL Lymphocytes # (1.0-4.8) k/uL Monocytes # (0-1.0) k/uL PT (9.0-12.0) sec INR (<1.2) APTT (22.0-30.0) sec Chloride 115 H (98-107) mmol/L Carbon Dioxide 15 L (22-30) mmol/L BUN 57 H (9-20) mg/dL Creatinine 1.81 H (0.66-1.25) mg/dL Glucose 129 H (74-99) mg/dL POC Glucose (mg/dL) (75-99) mg/dL Calcium 7.9 L (8.4-10.2) mg/dL Total Bilirubin (0.2-1.3) mg/dL AST (17-59) U/L ALT (4-49) U/L Alkaline Phosphatase (38-126) U/L CK-MB (CK-2) 2.7 H (0.0-2.4) ng/mL Troponin I 0.045 H* (0.000-0.034) ng/mL Total Protein (6.3-8.2) g/dL Albumin (3.5-5.0) g/dL Procalcitonin (0.02-0.09) ng/mL Microbiology - Last 24 Hours (Table) 12/08/21 16:46 Blood Culture - Preliminary Blood No Growth after 96 hours Assessment and Plan Plan: 1 Status post exploratory laparotomy, lysis of adhesions, repair of parastomal hernia, small bowel resection, 12/09/2021. There may be also a component of diverticulitis/ischemic bowel adjacent to the hernia. The patient underwent expiratory laparotomy. The patient is currently nothing by mouth. NG tube is in place. The patient is currently on antibiotics and the patient is currently on IV Zosyn. He is on no pressors. He is febrile. His T-max was 100.0. White cell count remains elevated at 38. I'm going to ask the surgeon to reevaluate the colostomy site which is quite pale and there is no output at this point in time. The patient is currently postop day #4. 2 Pseudomonas aeruginosa urinary tract infection, and likely sepsis. Status post left ureteral stent, for hydronephrosis and renal calculi, 12/09/2021. The patient has some indication for some mild right-sided hydronephrosis and this will be further discussed with urology. He remains on IV Zosyn 3 Wide-complex tachycardia, new since admission.She is known to have ischemic cardiomyopathy with previous history of coronary artery disease and V. tach and the patient has undergone previous VT ablation currently has an AICD in place. The patient is currently on combination of amiodarone, Mexitil and Toprol-XL. 4 Worsening transaminitis, which may relate to underlying cholecystitis. Consider acute cholecystitis. General surgeries on the case. 5 Anion gap metabolic acidosis, likely related to underlying sepsis. 6 acute kidney injury, on top of chronic kidney disease. The patient has likely an underlying chronic stage III kidney disease. 7 acute leukocytosis 8 History of CAD, status post heart catheterization with stent placement. 9 history of nonsustained VT, post VT ablation and the patient has a History of AICD placement. 10 History of sleep apnea syndrome. 11 History of hyperlipidemia. 12 History of hypertension. 13 History of colon cancer, status post colectomy with colostomy. 14 History of deep venous thrombosis. 15 paroxysmal atrial fibrillation, currently on IV heparin Plan: Switch this patient to a bicarb infusion infusion with a total of 150 mEq of sodium bicarbonate the rate of 75 mL an hour Repeat echocardiogram was done today, results are still pending Continue IV Zosyn Discussed the right-sided hydronephrosis with urology Discussed the possibility of an acute cholecystitis with general surgery Medication adjustments done regarding ventricle tachycardia was noted and the patient is currently on Toprol-XL, Mexitil and amiodarone Monitor LFTs Incentive spirometer Keep NG tube in place Monitor colostomy output Monitor renal function and white count Continue IV heparin Very critical condition. We'll continue to follow make further recommendations based on his progress. Evaluation was done and morning 30 minutes. Time with Patient: Greater than 30
[2021-12-13 11:43] LABS: Band Neutrophils % 3 %; Lymphocytes # (M) 1.16 k/uL (1.0-4.8); Monocytes # (M) 1.55 k/uL (0-1.0); Neutrophils % (M) 90 %; Nucleated Red Blood Cells 0 /100 WBC (0-0); Total Cells Counted 100
[2021-12-13 11:50] LABS: RBC Morphology Normal
[2021-12-13] MEDS: DEXTROSE 5% IN WATER 1,000 ML with SODIUM BICARB (1 MEQ/ML) 150 ML IV SCH (12:06)
[2021-12-13] MEDS: IOPAMIDOL CONTRAST (ORAL USE) VIAL PO PRN ×2 (12:06→13:06)
--- NOTE | 2021-12-13 12:14 | P.PN ---
<Bee Fernandes - Last Filed: 12/13/21 12:04> Subjective Progress Note Date: 12/13/21 CHIEF COMPLAINT: Small bowel ejection HISTORY OF PRESENT ILLNESS: Patient is postop day #4 status post exploratory laparotomy, lysis of extensive adhesions, repair of parastomal hernia and small bowel resection for small bowel obstruction due to parastomal hernia and adhesions. Patient is currently in the ICU due to hypotension. He also was found to have sepsis and UTI. He is on 2 L satting at 94%. Episodes of sustained ventricle tachycardia. Followed by cardiology. They have adjusted medications. No function per ostomy. He denies abdominal pain. Afebrile. White count remains elevated at 38.8 hemoglobin 13.8 creatinine 1.81 NG tube with 400 mL of bilious output. PHYSICAL EXAM: VITAL SIGNS: Reviewed. GENERAL: Well-developed in no acute distress. HEENT: No sclera icterus. Extraocular movements grossly intact. Moist buccal mucosa. Head is atraumatic, normocephalic. ABDOMEN: Soft. Minimal abdominal distention. Minimal tenderness around incision site. Serosanguineous drainage noted at the top of the incision. stoma light pink. Ostomy bag empty. NEUROLOGIC: awake and alert ASSESSMENT: 1. 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 Left hydronephrosis secondary to left ureteral stricture status post cystoscopy with left ureteroscopy balloon dilatation of the left distal ureteral stricture and left ureteral stent insertion by Dr. Cool 3. Sustained ventricle tachycardia PLAN: -Computed tomography scan abdomen and pelvis has been ordered -Continue ICU management -Continue supportive care -Continue antibiotics -Keep patient nothing by mouth -Continue NG tube for decompression -Encourage incentive spirometer use -Currently on IV heparin for anticoagulation Physician [employer] note has been reviewed by physician. Signing provider agrees with the documented findings, assessment, and plan of care. Objective - Vital Signs Vital signs: Vital Signs Temp 97.6 F 12/13/21 08:00 Pulse 92 12/13/21 11:00 Resp 26 H 12/13/21 11:00 BP 124/75 12/13/21 11:00 Pulse Ox 94 L 12/13/21 11:00 Intake & Output 12/12/21 12/13/21 12/13/21 18:59 06:59 18:59 Intake Total 8008.363 3937.256 922.431 Output Total 200 370 625 Balance 7772.646 7899.256 297.431 Weight 90.4 kg 90.4 kg Intake: IV 1950 1775 845 Lactated Ringers 1,000 ml 1750 1500 520 @ 125 mls/hr IV .Q8H [facility] Rx#:[id number] Piperacillin-Tazobactam 3 200 275 125 .375 gm In Sodium Chloride 0.9% 100 ml @ 25 mls/hr IVPB Q8HR [facility] Rx# :[id number] Potassium Chloride 10 meq 200 In Water For Injection 1 100ml.bag @ 100 mls/hr IVPB Q1H [facility] Rx#: [id number] Intake, IV Titration 14.727 77.256 77.431 Amount Heparin Sod,Pork in 0.45% 77.256 77.431 NaCl 25,000 unit In 0.45 % NaCl 1 250ml.bag @ 12 UNITS/KG/HR 9.308 mls/hr IV .Q24H [facility] Rx#: [id number] Norepinephrine 4 mg In 14.727 Sodium Chloride 0.9% 250 ml @ 0.05 MCG/KG/MIN 14. 776 mls/hr IV .[id number] [facility] Rx#:[id number] Output: Gastric Drainage 400 Urine 200 370 225 Other: Voiding Method Indwelling Catheter Indwelling Catheter - Labs CBC & Chem 7: 12/13/21 05:28 12/13/21 05:28 Labs: Abnormal Lab Results - Last 24 Hours (Table) 12/12/21 12/12/21 12/12/21 Range/Units 11:46 11:46 11:46 WBC (3.8-10.6) k/uL RBC (4.30-5.90) m/uL Hgb (13.0-17.5) gm/dL Hct (39.0-53.0) % Neutrophils # (1.3-7.7) k/uL Neutrophils # (Manual) (1.3-7.7) k/uL Lymphocytes # (1.0-4.8) k/uL Monocytes # (0-1.0) k/uL Monocytes # (Manual) (0-1.0) k/uL PT (9.0-12.0) sec INR (<1.2) APTT (22.0-30.0) sec Chloride 113 H (98-107) mmol/L Carbon Dioxide 15 L (22-30) mmol/L BUN 56 H (9-20) mg/dL Creatinine 2.05 H (0.66-1.25) mg/dL Glucose 170 H (74-99) mg/dL POC Glucose (mg/dL) (75-99) mg/dL Calcium 7.9 L (8.4-10.2) mg/dL Total Bilirubin 1.9 H (0.2-1.3) mg/dL AST 157 H (17-59) U/L ALT 313 H (4-49) U/L Alkaline Phosphatase 309 H (38-126) U/L CK-MB (CK-2) (0.0-2.4) ng/mL Troponin I 0.037 H* (0.000-0.034) ng/mL Total Protein 4.2 L (6.3-8.2) g/dL Albumin 2.0 L (3.5-5.0) g/dL Procalcitonin 1.11 H (0.02-0.09) ng/mL 12/12/21 12/12/21 12/12/21 Range/Units 11:46 14:20 17:44 WBC 38.0 H (3.8-10.6) k/uL RBC 3.89 L (4.30-5.90) m/uL Hgb 12.5 L (13.0-17.5) gm/dL Hct 38.2 L (39.0-53.0) % Neutrophils # 35.9 H (1.3-7.7) k/uL Neutrophils # (Manual) (1.3-7.7) k/uL Lymphocytes # 0.7 L (1.0-4.8) k/uL Monocytes # 1.2 H (0-1.0) k/uL Monocytes # (Manual) (0-1.0) k/uL PT 15.1 H (9.0-12.0) sec INR 1.5 H (<1.2) APTT 31.4 H (22.0-30.0) sec Chloride (98-107) mmol/L Carbon Dioxide (22-30) mmol/L BUN (9-20) mg/dL Creatinine (0.66-1.25) mg/dL Glucose (74-99) mg/dL POC Glucose (mg/dL) 137 H (75-99) mg/dL Calcium (8.4-10.2) mg/dL Total Bilirubin (0.2-1.3) mg/dL AST (17-59) U/L ALT (4-49) U/L Alkaline Phosphatase (38-126) U/L CK-MB (CK-2) (0.0-2.4) ng/mL Troponin I (0.000-0.034) ng/mL Total Protein (6.3-8.2) g/dL Albumin (3.5-5.0) g/dL Procalcitonin (0.02-0.09) ng/mL 12/12/21 12/13/21 12/13/21 Range/Units 21:48 05:28 05:28 WBC 38.8 H (3.8-10.6) k/uL RBC 4.27 L (4.30-5.90) m/uL Hgb (13.0-17.5) gm/dL Hct (39.0-53.0) % Neutrophils # (1.3-7.7) k/uL Neutrophils # (Manual) 36.00 H (1.3-7.7) k/uL Lymphocytes # (1.0-4.8) k/uL Monocytes # (0-1.0) k/uL Monocytes # (Manual) 1.55 H (0-1.0) k/uL PT 14.0 H (9.0-12.0) sec INR 1.3 H (<1.2) APTT 74.1 H 41.8 H (22.0-30.0) sec Chloride (98-107) mmol/L Carbon Dioxide (22-30) mmol/L BUN (9-20) mg/dL Creatinine (0.66-1.25) mg/dL Glucose (74-99) mg/dL POC Glucose (mg/dL) (75-99) mg/dL Calcium (8.4-10.2) mg/dL Total Bilirubin (0.2-1.3) mg/dL AST (17-59) U/L ALT (4-49) U/L Alkaline Phosphatase (38-126) U/L CK-MB (CK-2) (0.0-2.4) ng/mL Troponin I (0.000-0.034) ng/mL Total Protein (6.3-8.2) g/dL Albumin (3.5-5.0) g/dL Procalcitonin (0.02-0.09) ng/mL 12/13/21 12/13/21 Range/Units 05:28 08:31 WBC (3.8-10.6) k/uL RBC (4.30-5.90) m/uL Hgb (13.0-17.5) gm/dL Hct (39.0-53.0) % Neutrophils # (1.3-7.7) k/uL Neutrophils # (Manual) (1.3-7.7) k/uL Lymphocytes # (1.0-4.8) k/uL Monocytes # (0-1.0) k/uL Monocytes # (Manual) (0-1.0) k/uL PT (9.0-12.0) sec INR (<1.2) APTT (22.0-30.0) sec Chloride 115 H (98-107) mmol/L Carbon Dioxide 15 L (22-30) mmol/L BUN 57 H (9-20) mg/dL Creatinine 1.81 H (0.66-1.25) mg/dL Glucose 129 H (74-99) mg/dL POC Glucose (mg/dL) (75-99) mg/dL Calcium 7.9 L (8.4-10.2) mg/dL Total Bilirubin (0.2-1.3) mg/dL AST (17-59) U/L ALT (4-49) U/L Alkaline Phosphatase (38-126) U/L CK-MB (CK-2) 2.7 H (0.0-2.4) ng/mL Troponin I 0.045 H* (0.000-0.034) ng/mL Total Protein (6.3-8.2) g/dL Albumin (3.5-5.0) g/dL Procalcitonin (0.02-0.09) ng/mL Microbiology - Last 24 Hours (Table) 12/08/21 16:46 Blood Culture - Preliminary Blood No Growth after 96 hours <Boutt,Juan - Last Filed: 12/13/21 12:19> Subjective Patient was transferred to the ICU yesterday morning. Patient had hypotension with A. fib and rapid ventricular response. The patient's white blood cell count came back yesterday and again this morning elevated at 38,000. Patient says his pain continues to gradually improve. No ostomy function however. Patient's abdominal examination demonstrates mild tenderness but no significant change from the last several days. Given the patient's leukocytosis and lack of bowel function Will order CT abdomen and pelvis at this time. Keep nothing by mouth with nasogastric tube to suction. Continue evaluation for source of sepsis. Objective - Vital Signs Vital signs: Vital Signs Temp 97.6 F 12/13/21 08:00 Pulse 92 12/13/21 11:00 Resp 26 H 12/13/21 11:00 BP 124/75 12/13/21 11:00 Pulse Ox 94 L 12/13/21 11:00 Intake & Output 12/12/21 12/13/21 12/13/21 18:59 06:59 18:59 Intake Total 7941.810 3930.256 922.431 Output Total 200 370 625 Balance 9614.775 0346.256 297.431 Weight 90.4 kg 90.4 kg Intake: IV 1950 1775 845 Lactated Ringers 1,000 ml 1750 1500 520 @ 125 mls/hr IV .Q8H [facility] Rx#:[id number] Piperacillin-Tazobactam 3 200 275 125 .375 gm In Sodium Chloride 0.9% 100 ml @ 25 mls/hr IVPB Q8HR [facility] Rx# :[id number] Potassium Chloride 10 meq 200 In Water For Injection 1 100ml.bag @ 100 mls/hr IVPB Q1H [facility] Rx#: [id number] Intake, IV Titration 14.727 77.256 77.431 Amount Heparin Sod,Pork in 0.45% 77.256 77.431 NaCl 25,000 unit In 0.45 % NaCl 1 250ml.bag @ 12 UNITS/KG/HR 9.308 mls/hr IV .Q24H [facility] Rx#: [id number] Norepinephrine 4 mg In 14.727 Sodium Chloride 0.9% 250 ml @ 0.05 MCG/KG/MIN 14. 776 mls/hr IV .[id number] [facility] Rx#:[id number] Output: Gastric Drainage 400 Urine 200 370 225 Other: Voiding Method Indwelling Catheter Indwelling Catheter - Labs CBC & Chem 7: 12/13/21 05:28 12/13/21 05:28 Labs: Abnormal Lab Results - Last 24 Hours (Table) 12/12/21 12/12/21 12/12/21 Range/Units 11:46 11:46 11:46 WBC (3.8-10.6) k/uL RBC (4.30-5.90) m/uL Neutrophils # 35.9 H (1.3-7.7) k/uL Neutrophils # (Manual) (1.3-7.7) k/uL Lymphocytes # 0.7 L (1.0-4.8) k/uL Monocytes # 1.2 H (0-1.0) k/uL Monocytes # (Manual) (0-1.0) k/uL PT (9.0-12.0) sec INR (<1.2) APTT (22.0-30.0) sec Chloride (98-107) mmol/L Carbon Dioxide (22-30) mmol/L BUN (9-20) mg/dL Creatinine (0.66-1.25) mg/dL Glucose (74-99) mg/dL POC Glucose (mg/dL) (75-99) mg/dL Calcium (8.4-10.2) mg/dL CK-MB (CK-2) (0.0-2.4) ng/mL Troponin I 0.037 H* (0.000-0.034) ng/mL Procalcitonin 1.11 H (0.02-0.09) ng/mL 12/12/21 12/12/21 12/12/21 Range/Units 14:20 17:44 21:48 WBC (3.8-10.6) k/uL RBC (4.30-5.90) m/uL Neutrophils # (1.3-7.7) k/uL Neutrophils # (Manual) (1.3-7.7) k/uL Lymphocytes # (1.0-4.8) k/uL Monocytes # (0-1.0) k/uL Monocytes # (Manual) (0-1.0) k/uL PT 15.1 H (9.0-12.0) sec INR 1.5 H (<1.2) APTT 31.4 H 74.1 H (22.0-30.0) sec Chloride (98-107) mmol/L Carbon Dioxide (22-30) mmol/L BUN (9-20) mg/dL Creatinine (0.66-1.25) mg/dL Glucose (74-99) mg/dL POC Glucose (mg/dL) 137 H (75-99) mg/dL Calcium (8.4-10.2) mg/dL CK-MB (CK-2) (0.0-2.4) ng/mL Troponin I (0.000-0.034) ng/mL Procalcitonin (0.02-0.09) ng/mL 12/13/21 12/13/21 12/13/21 Range/Units 05:28 05:28 05:28 WBC 38.8 H (3.8-10.6) k/uL RBC 4.27 L (4.30-5.90) m/uL Neutrophils # (1.3-7.7) k/uL Neutrophils # (Manual) 36.00 H (1.3-7.7) k/uL Lymphocytes # (1.0-4.8) k/uL Monocytes # (0-1.0) k/uL Monocytes # (Manual) 1.55 H (0-1.0) k/uL PT 14.0 H (9.0-12.0) sec INR 1.3 H (<1.2) APTT 41.8 H (22.0-30.0) sec Chloride 115 H (98-107) mmol/L Carbon Dioxide 15 L (22-30) mmol/L BUN 57 H (9-20) mg/dL Creatinine 1.81 H (0.66-1.25) mg/dL Glucose 129 H (74-99) mg/dL POC Glucose (mg/dL) (75-99) mg/dL Calcium 7.9 L (8.4-10.2) mg/dL CK-MB (CK-2) (0.0-2.4) ng/mL Troponin I (0.000-0.034) ng/mL Procalcitonin (0.02-0.09) ng/mL 12/13/21 Range/Units 08:31 WBC (3.8-10.6) k/uL RBC (4.30-5.90) m/uL Neutrophils # (1.3-7.7) k/uL Neutrophils # (Manual) (1.3-7.7) k/uL Lymphocytes # (1.0-4.8) k/uL Monocytes # (0-1.0) k/uL Monocytes # (Manual) (0-1.0) k/uL PT (9.0-12.0) sec INR (<1.2) APTT (22.0-30.0) sec Chloride (98-107) mmol/L Carbon Dioxide (22-30) mmol/L BUN (9-20) mg/dL Creatinine (0.66-1.25) mg/dL Glucose (74-99) mg/dL POC Glucose (mg/dL) (75-99) mg/dL Calcium (8.4-10.2) mg/dL CK-MB (CK-2) 2.7 H (0.0-2.4) ng/mL Troponin I 0.045 H* (0.000-0.034) ng/mL Procalcitonin (0.02-0.09) ng/mL Microbiology - Last 24 Hours (Table) 12/08/21 16:46 Blood Culture - Preliminary Blood No Growth after 96 hours Assessment and Plan (1) SBO (small bowel obstruction) Current Visit: Yes Status: Acute Code(s): K56.609 - UNSP INTESTNL OBST, UNSP TO PARTIAL VERSUS COMPLETE OBST SNOMED Code(s): 540266976
--- NOTE | 2021-12-13 14:37 | CT ---
EXAMINATION TYPE: CT abdomen pelvis wo con DATE OF EXAM: 12/13/2021 COMPARISON: 12/08/2021 HISTORY: 80-year-old male Post surgical bowel obstruction CT DLP: 887 mGycm. Automated exposure control for dose reduction was used. TECHNIQUE: Contiguous axial scanning of the abdomen and pelvis without IV contrast. Coronal and sagit conchita reconstructions performed. FINDINGS: Generalized anasarca change. Heart upper limits of normal in size. Small basilar pericardial effusion measuring 1 cm. Pacer leads. Contrast column in the visualized esophagus. NG tube is looped within a moderate size hiatal hernia. It does not extend below the diaphragm. Qaqeo-[id number] right and small left pleural effusions with probable adjacent atelectasis. Multifoc al patchy right lower lung groundglass opacities. Liver shows a 1.7 cm cyst. There is cholelithiasis with hydropic gallbladder measuring 6.3 cm wide. Q uestionable surrounding inflammation versus anasarca change of the peritoneal fat and mild abdominope lvic ascites. A few tiny foci of free intraperitoneal air are noted in the right upper quadrant, axial image 12, 20 , and 33. Nonobstructive 1.9 cm right renal calculus. Suspect an 8 mm hemorrhagic cyst of the lateral right cor jenna. Interval placement of a left ureteral stent with resolution of previous hydronephrosis. Moderate atherosclerotic calcifications infrarenal abdominal aorta and iliac arteries. Redemonstrated left lower quadrant sigmoid colostomy. Parastomal hernia measures 9.0 cm wide versus 1 0.9 cm, previously. Redundancy of the sigmoid colon within the parastomal hernia. No other herniated bowel loop is clearly identified here. There is a tubular focus of air in the left periumbilical subcutaneous fat measuring 6.1 cm long. The etiology is unclear. Possible tiny adjacent foci of air in the left paramedian rectus abdominis just deep to this area, coronal image 20 and axial image 53. And diffusely dilated proximal to mid small bowel loops measuring up to 6.4 cm in caliber. Dilution o f oral contrast within the right lower quadrant. Possible transition point, axial image 51 and sagitt al image 73 in the central mid abdomen. The patient's surgical site is located distal to this level a nd seen on axial image 74. Scattered left-sided colonic diverticulosis. Moderate free fluid in the pelvis. Focus of free air in the anterior pelvis measures 1.7 cm. Meza ca theter balloon collapses the bladder. Intraluminal bladder air is noted as well as the pigtail of the left ureteral stent. Presacral soft tissue thickening and surgical changes, probably scar. Appropriate oncologic follow-up recommended for this region. Bones: Mild degenerative change of the hips. No osseous destructive process. IMPRESSION: 1. Redemonstrated left lower quadrant parastomal hernia currently 9.0 cm wide versus 10.9 cm, previo usly. The hernia sac now contains only some redundant sigmoid colon related to the colostomy. 2. Diffusely dilated proximal and mid small bowel loops measuring up to 6.4 cm with suspected transit ion point central midabdomen (axial image 51 and sagittal image 73). Findings suggest recurrent small bowel obstruction. The patient's site of small bowel surgery is located distal to this level. NG tub e is looped within a moderate-sized hiatal hernia. Contrast backing up into the esophagus. 4. Few tiny foci of free air in the right upper quadrant and an additional focus in the pelvis. Corre late as to time since patient's surgery. There is also a 6.1 cm long, elongated focus of air in the l eft periumbilical subcutaneous fat of unclear etiology. 5. Generalized anasarca changes and mild to moderate abdominopelvic ascites. 6. New small to moderate right and small left pleural effusions with adjacent atelectasis. There is m ultifocal patchy groundglass in the lower lungs that could represent infection, aspiration, or develo ping pulmonary edema. Clinically correlate. 7. Interval placement of left ureteral stent with resolution of the obstructive uropathy. Meza beatriz ter in place. 8. Hydropic gallbladder with cholelithiasis. Possible surrounding inflammation versus changes relatin g to anasarca. Correlate for any right upper quadrant pain to exclude acute cholecystitis. HIDA scan if clinically indicated.
--- NOTE | 2021-12-13 14:56 | P.PN ---
Subjective Progress Note Date: 12/13/21 Pt has no stool output from ostomy. Still having episodes of confusion. Still having episodes of sustained ventricular tachycardia. Is on amiodarone and mexiletine. Plans for CT of the abdomen/pelvis today to rule out bowel obstruction. Gen: awake, alert HEENT: normocephalic, atraumatic, good hearing acuity, moist mucous membranes Resp: good air exchange, breathing comfortably with no accessory muscle use CVS: good distal perfusion x 4, GI: soft, NTTP, ND : no SPT, no CVAT, fuentes catheter is present MSK: no pitting edema, no clubbing Neuro: non-focal, moving all extremities Psych: cooperative, euthymic mood Assessment/plan: #1 sepsis secondary to urinary company urinary tract infection -pseudomonas #2 small bowel obstruction can be secondary to underlying adhesions versus parastomal hernia? #3 coronary disease status post stent 2 #4 hyperlipidemia #5 essential hypertension #6 hyponatremia most likely related to dehydration #7 electrolyte abnormality secondary to above #8 CKD Secondary to Dehydration/Prerenal #9 transaminitis can be secondary to sepsis most likely #10 hypotension secondary to sepsis may be progressing towards septic shock.? Plan: -Admit to medicine for close monitoring -Aspiration/fall precaution/hob30 -Blood pressure continues to be labile. 500 mL bolus given. Case discussed with ICU transfer for close hemodynamic monitoring. Continue with LR. -Urine cultures reviewed showing Pseudomonas. Urine cultures positive susceptible to Zosyn which we will continue to complete 5 days. -Stent placed by urology needs outpatient follow-up as well. -Continue with IV fluids -Replace electrolyte when necessary -Continue to monitor LFTs obtain right upper quadrant ultrasound if it doesnt trend down -Obtain EKG -DVT prophylaxis Lovenox Objective - Vital Signs Vital signs: Vital Signs Temp 98.1 F 12/13/21 12:00 Pulse 83 12/13/21 14:00 Resp 25 H 12/13/21 14:00 BP 108/73 12/13/21 14:00 Pulse Ox 96 12/13/21 14:00 Intake & Output 12/12/21 12/13/21 12/13/21 18:59 06:59 18:59 Intake Total 4588.827 3587.256 2272.431 Output Total 200 370 670 Balance 8248.465 7657.256 1602.431 Weight 90.4 kg 90.4 kg Intake: IV 1950 1775 995 Dextrose 5% in Water 1, 150 000 ml @ 75 mls/hr IV . [id number] [facility] with Sodium Bicarb (1 Meq/ml) 150 ml Rx#:[id number] Lactated Ringers 1,000 ml 1750 1500 520 @ 125 mls/hr IV .Q8H [facility] Rx#:[id number] Piperacillin-Tazobactam 3 200 275 125 .375 gm In Sodium Chloride 0.9% 100 ml @ 25 mls/hr IVPB Q8HR [facility] Rx# :[id number] Potassium Chloride 10 meq 200 In Water For Injection 1 100ml.bag @ 100 mls/hr IVPB Q1H [facility] Rx#: [id number] Intake, IV Titration 14.727 77.256 77.431 Amount Heparin Sod,Pork in 0.45% 77.256 77.431 NaCl 25,000 unit In 0.45 % NaCl 1 250ml.bag @ 12 UNITS/KG/HR 9.308 mls/hr IV .Q24H [facility] Rx#: [id number] Norepinephrine 4 mg In 14.727 Sodium Chloride 0.9% 250 ml @ 0.05 MCG/KG/MIN 14. 776 mls/hr IV .[id number] [facility] Rx#:[id number] Other 1200 Output: Gastric Drainage 400 Urine 200 370 270 Other: Voiding Method Indwelling Catheter Indwelling Catheter Indwelling Catheter - Labs CBC & Chem 7: 12/13/21 05:28 12/13/21 05:28 Labs: Abnormal Lab Results - Last 24 Hours (Table) 12/12/21 12/12/21 12/12/21 Range/Units 11:46 17:44 21:48 WBC (3.8-10.6) k/uL RBC (4.30-5.90) m/uL Neutrophils # (Manual) (1.3-7.7) k/uL Monocytes # (Manual) (0-1.0) k/uL PT (9.0-12.0) sec INR (<1.2) APTT 74.1 H (22.0-30.0) sec Chloride (98-107) mmol/L Carbon Dioxide (22-30) mmol/L BUN (9-20) mg/dL Creatinine (0.66-1.25) mg/dL Glucose (74-99) mg/dL POC Glucose (mg/dL) 137 H (75-99) mg/dL Calcium (8.4-10.2) mg/dL CK-MB (CK-2) (0.0-2.4) ng/mL Troponin I (0.000-0.034) ng/mL Procalcitonin 1.11 H (0.02-0.09) ng/mL 12/13/21 12/13/21 12/13/21 Range/Units 05:28 05:28 05:28 WBC 38.8 H (3.8-10.6) k/uL RBC 4.27 L (4.30-5.90) m/uL Neutrophils # (Manual) 36.00 H (1.3-7.7) k/uL Monocytes # (Manual) 1.55 H (0-1.0) k/uL PT 14.0 H (9.0-12.0) sec INR 1.3 H (<1.2) APTT 41.8 H (22.0-30.0) sec Chloride 115 H (98-107) mmol/L Carbon Dioxide 15 L (22-30) mmol/L BUN 57 H (9-20) mg/dL Creatinine 1.81 H (0.66-1.25) mg/dL Glucose 129 H (74-99) mg/dL POC Glucose (mg/dL) (75-99) mg/dL Calcium 7.9 L (8.4-10.2) mg/dL CK-MB (CK-2) (0.0-2.4) ng/mL Troponin I (0.000-0.034) ng/mL Procalcitonin (0.02-0.09) ng/mL 12/13/21 Range/Units 08:31 WBC (3.8-10.6) k/uL RBC (4.30-5.90) m/uL Neutrophils # (Manual) (1.3-7.7) k/uL Monocytes # (Manual) (0-1.0) k/uL PT (9.0-12.0) sec INR (<1.2) APTT (22.0-30.0) sec Chloride (98-107) mmol/L Carbon Dioxide (22-30) mmol/L BUN (9-20) mg/dL Creatinine (0.66-1.25) mg/dL Glucose (74-99) mg/dL POC Glucose (mg/dL) (75-99) mg/dL Calcium (8.4-10.2) mg/dL CK-MB (CK-2) 2.7 H (0.0-2.4) ng/mL Troponin I 0.045 H* (0.000-0.034) ng/mL Procalcitonin (0.02-0.09) ng/mL Microbiology - Last 24 Hours (Table) 12/08/21 16:46 Blood Culture - Preliminary Blood No Growth after 96 hours
[2021-12-13 15:59] LABS: Creatine Kinase MB 3.9 ng/mL (0.0-2.4); Troponin I 0.032 ng/mL (0.000-0.034)
[2021-12-13] MEDS: HEPARIN SOD,PORK IN 0.45% NACL 25,000 UNIT in 0.45% NACL 1 250ML.BAG IV SCH (16:03)
[2021-12-13 17:49] LABS: Glucose,Whole Blood 140 mg/dL (75-99)
--- NOTE | 2021-12-13 17:49 | P.PN ---
Progress Note - Text Progress Note Date: 12/13/21 Patient with for CAT scan abdomen and pelvis. These films were reviewed. Pertinent findings include small amount of air to the left of the midline incision at the upper aspect of the incision. Also patient noted to have a few small bubbles of free intraperitoneal air. CAT scan discussed persistent hernia however the peritoneal defect has been decreased in size and only the colon is present above the fascial closure. The patient's gallbladder is also somewhat distended and appears mildly inflamed. Patient was reassessed after seeing this study. Patient again states he does not have any definite abdominal pain at this time. He is nontender in the right upper quadrant. He was found to have some upper midline incisional drainage today. One staple was removed and the saphenous tissues were palpated. A small amount of serous fluid was evacuated. This may be the reason for the air present on the CAT scan. Still no ostomy function. CAT scan was dictated as possible bowel obstruction however ileus more likely the case. Discussed case with the patient, his , and a friend of his. No obvious findings on CAT scan to suggest true abdominal source to his leukocytosis. No definitive findings to suggest that operative intervention is required. Patient would not tolerate surgery well and they are not interested in surgery unless absolutely necessary. Will follow.
[2021-12-13 21:06] LABS: Creatine Kinase MB 4.6 ng/mL (0.0-2.4)
[2021-12-13] MEDS: TAMSULOSIN 0.4 MG CAP.ER.24H PO SCH (21:09)
[2021-12-13] MEDS: ATORVASTATIN 40 MG TAB PO SCH (21:09)
[2021-12-13 21:15] LABS: Troponin I 0.035 ng/mL (0.000-0.034)
[2021-12-14 00:37] LABS: Glucose,Whole Blood 143 mg/dL (75-99)
[2021-12-14] MEDS: PIPERACILLIN-TAZOBACTAM 3.375 GM in SODIUM CHLORIDE 0.9% 100 ML IVPB SCH ×4 (00:43→23:45)
[2021-12-14] MEDS: DEXTROSE 5% IN WATER 1,000 ML with SODIUM BICARB (1 MEQ/ML) 150 ML IV SCH (05:15)
[2021-12-14 06:42] LABS: Glucose,Whole Blood 135 mg/dL (75-99)
[2021-12-14] MEDS ORDERED: AMIODARONE 450 MG in DEXTROSE 5% IN WATER 250 ML IV SCH ×2 (07:00)
--- NOTE | 2021-12-14 08:01 | P.PN ---
Subjective Progress Note Date: 12/14/21 Principal diagnosis: Ventricular tachycardia The patient is an 80-year-old gentleman with a past medical history significant for CAD and prior stenting of the RCA and LAD as well as ischemic cardiomyopathy and status post AICD and also status post VT ablation in 2020 as well as hypertension and dyslipidemia was admitted to the hospital with abdominal discomfort and underwent exploratory laparotomy with lysis of adhesion and repair of parastomal hernia and small bowel resection. The patient was transferred to the intensive care unit yesterday because he did have an episode of wide complex tachycardia to me looks like ventricular tachycardia. He was started on amiodarone IV. The patient was seen this morning. He is asymptomatic from a cardiovascular standpoint of view. Normal episode of ventricular tachycardia. The AICD was interrogated yesterday and the patient did have sustained VT. He did not receive any shock or ATP treatment. He was started on mexiletine yesterday as well. I'm going to DC the amiodarone IV and start the patient on amiodarone by mouth. Continue IV heparin for now and consider switching the patient back to oral anticoagulation as well as. The echo still pending. We will continue following up with the patient Objective - Vital Signs Vital signs: Vital Signs Temp 97.8 F 12/14/21 04:00 Pulse 68 12/14/21 07:00 Resp 22 12/14/21 07:00 BP 109/63 12/14/21 07:00 Pulse Ox 94 L 12/14/21 07:00 Intake & Output 12/13/21 12/14/21 12/14/21 18:59 06:59 18:59 Intake Total 3052.102 1108.37 91.67 Output Total 1240 512 38 Balance 1812.102 596.37 53.67 Weight 90.4 kg 90 kg Intake: IV 1470 1108.37 91.67 Amiodarone 0.5mg 183.37 16.67 Dextrose 5% in Water 1, 525 825 75 000 ml @ 75 mls/hr IV . [id number] ANGELITA with Sodium Bicarb (1 Meq/ml) 150 ml Rx#:[id number] Lactated Ringers 1,000 ml 520 @ 125 mls/hr IV .Q8H ANGELITA Rx#:[id number] Piperacillin-Tazobactam 3 225 100 .375 gm In Sodium Chloride 0.9% 100 ml @ 25 mls/hr IVPB Q8HR ANGELITA Rx# :[id number] Potassium Chloride 10 meq 200 In Water For Injection 1 100ml.bag @ 100 mls/hr IVPB Q1H ANGELITA Rx#: [id number] Intake, IV Titration 382.102 Amount Amiodarone 450 mg In 238.894 Dextrose 5% in Water 250 ml @ 0.5 MG/MIN 16.667 mls/hr IV .Q15H ANGELITA Rx#: [id number] Heparin Sod,Pork in 0.45% 143.208 NaCl 25,000 unit In 0.45 % NaCl 1 250ml.bag @ 12 UNITS/KG/HR 9.308 mls/hr IV .Q24H ANGELITA Rx#: [id number] Other 1200 Output: Gastric Drainage 800 Urine 440 512 38 Other: Voiding Method Indwelling Catheter Indwelling Catheter - Constitutional General appearance: Present: no acute distress - Respiratory Respiratory: bilateral: diminished - Cardiovascular Rhythm: regular Heart sounds: normal: S1, S2 - Labs CBC & Chem 7: 12/13/21 05:28 12/13/21 05:28 Labs: Abnormal Lab Results - Last 24 Hours (Table) 12/13/21 12/13/21 12/13/21 Range/Units 05:28 08:31 15:20 Neutrophils # (Manual) 36.00 H (1.3-7.7) k/uL Monocytes # (Manual) 1.55 H (0-1.0) k/uL APTT (22.0-30.0) sec POC Glucose (mg/dL) (75-99) mg/dL CK-MB (CK-2) 2.7 H 3.9 H (0.0-2.4) ng/mL Troponin I 0.045 H* (0.000-0.034) ng/mL 12/13/21 12/13/21 12/13/21 Range/Units 15:20 17:37 20:10 Neutrophils # (Manual) (1.3-7.7) k/uL Monocytes # (Manual) (0-1.0) k/uL APTT 61.5 H (22.0-30.0) sec POC Glucose (mg/dL) 140 H (75-99) mg/dL CK-MB (CK-2) 4.6 H (0.0-2.4) ng/mL Troponin I 0.035 H* (0.000-0.034) ng/mL 12/14/21 12/14/21 Range/Units 00:36 06:40 Neutrophils # (Manual) (1.3-7.7) k/uL Monocytes # (Manual) (0-1.0) k/uL APTT (22.0-30.0) sec POC Glucose (mg/dL) 143 H 135 H (75-99) mg/dL CK-MB (CK-2) (0.0-2.4) ng/mL Troponin I (0.000-0.034) ng/mL Microbiology - Last 24 Hours (Table) 12/08/21 16:46 Blood Culture - Preliminary Blood No Growth after 120 hours Assessment and Plan Assessment: Assessment #1 status post exploratory laparotomy #2 sustained ventricular tachycardia #3 coronary artery disease #4 ischemic cardiomyopathy #5 status post VT ablation #Multiple comorbid conditions Plan #1 DC amiodarone IV and start the patient on amiodarone by mouth #2 continue mexiletine #3 consider switching the patient back to oral anticoagulation from heparin #4 follow-up on the echocardiogram
[2021-12-14 08:08] LABS: Basophils % (A) 0 %; Eosinophils # (A) 0.1 k/uL (0-0.7); Eosinophils % (A) 0 %; HCT 32.8 % (39.0-53.0); Lymphocytes # (A) 0.6 k/uL (1.0-4.8); Lymphocytes % (A) 2 %; MCH 32.2 pg (25.0-35.0); MCHC 32.7 g/dL (31.0-37.0); MCV 98.6 fL (80.0-100.0); Mean Platelet Volume 9.1; Monocytes # (A) 1.1 k/uL (0-1.0); Monocytes % (A) 3 %; Neutrophils # (A) 31.1 k/uL (1.3-7.7); Neutrophils % (A) 94 %; Platelet Count 173 k/uL (150-450); RBC 3.32 m/uL (4.30-5.90); RDW 14.4 % (11.5-15.5); WBC 33.1 k/uL (3.8-10.6)
[2021-12-14 08:09] LABS: Albumin 1.7 g/dL (3.5-5.0); Calcium 7.1 mg/dL (8.4-10.2); Potassium 3.3 mmol/L (3.5-5.1); Total Bilirubin 1.6 mg/dL (0.2-1.3); Total Protein 3.9 g/dL (6.3-8.2)
[2021-12-14 08:14] LABS: HGB 10.7 gm/dL (13.0-17.5)
[2021-12-14] MEDS: NOREPINEPHRINE 4 MG in SODIUM CHLORIDE 0.9% 250 ML IV SCH ×2 (08:18→16:20)
[2021-12-14] MEDS ORDERED: AMIODARONE 200 MG TAB PO SCH (09:00)
--- NOTE | 2021-12-14 09:39 | P.PN ---
Subjective Progress Note Date: 12/14/21 80-year-old male who was initially seen in the emergency department, on 12/08/2021, for nausea and vomiting. For a week or so prior to admission, the patient admits to ongoing nausea and vomiting. He apparently told the ER physician that anything he eats, he vomits. He was not able to take his usual m edications. The patient was recently diagnosed with an obstructive kidney stone, and was scheduled for a ureteral stent. He apparently denied fever when he was in the emergency department. He does have some minimal stool output from his colostomy. He denied any abdominal pain. We are asked to see him today, after his been in the hospital since December 08. Apparently he was found to have hypotension, and wasn't looking very good, and we decided to move him to the intensive care unit for further monitoring and management. 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 Also, on December 09, the patient underwent an exploratory laparotomy, extensive lysis of adhesions, and repair of parastomal hernia. The patient also had a small bowel resection. This was done because of bowel obstruction. Urine sampling from December 08 revealed evidence of pseudomonas aeruginosa. White count 22.68, hemoglobin 10.9, hematocrit 33.7, and platelet count 219,000. Sodium 141, potassium 3.8, chlorides 111, CO2 14, anion gap 17, BUN 38, and creatinine 1.8. AST was 387, and ALT was 467. Those are both increasing. Also, urine sampling from December 18 revealed what appears to be a urinary tract infection. Chest x-ray back from December 08 did not show anything acute. Cardiology saw the patient in consultation and ordered amiodarone, lidocaine, and Lopressor. EKG done on 5 N., revealed a wide-complex tachycardia, and a new bundle branch. history significant for CAD and prior stenting of the RCA and LAD as well as ischemic cardiomyopathy and status post AICD and also status post VT ablation in 202012/13/2021, the patient is in the intensive care unit. His current cardiac rhythm is sinus. He is having runs of episodic atrial fibrillation. There is still having episodes of nonsustained ventricular tachycardia. The patient was seen by cardiology. He remains on amiodarone drip which is running at 0.5 mcg/kg per minute and the patient remains on IV heparin. This morning, cardiology evaluated the patient and put him on a beta christelle and the patient is currently on Toprol-XL 25 mg twice a day and the patient was also started on Mexitil at a dose of 150 milligrams by mouth twice a day. The patient's blood pressure currently is at 124/75. He is on no pressors. He is receiving lactated Ringer at the rate of 20 mL an hour. He is free of any chest pain. His blood work shows a BUN of 57 with a creatinine of 1.8 and the creatinine is at 3.8 and the sodium level is at 140. Normal potassium of 3.8. Lactic acid level was down to 1.8. Troponins were 0.04 and 0.03 respectively 2. His pro- calcitonin level was 1.1. Note that his white cell count is at 38 which is comparable to yesterday and the patient also has a hemoglobin of 13.8 and a platelet count of 190. As mentioned, he had a pseudomonal urinary tract infection. The patient will remains on IV Zosyn. Echo was obtained this morning and the results are still pending for now. His liver function tests were also abnormal. His AST of 157 and ALT of 313 and an alkaline phosphatase of 309. His bilirubin is currently at 1.9. Ultrasound of the liver that was obtained on 12/11/2021 showed limitation due to his body habitus and bowel gas pattern. There was cholelithiasis with distention of the gallbladder possibly indicating an acute cholecystitis. There was still evidence of hydronephrosis of the right kidney stone measuring 1.5 cm in the right kidney was mildly hydro nephrotic. His original CAT scan of the abdomen and pelvis that was on 12/08/2021 showed high-grade mechanical small bowel obstruction with transition point in the left lower quadrant in addition to a parastomal hernia. There was also significant wall thickening of the colon just proximal to the colostomy and surrounding area of an acute inflammatory change with her underlying colitis/diverticulitis not being completely excluded. There was also left distal ureteral obstruction with stone and moderate degree of left-sided hydroureter and hydronephrosis. He has NGT and the output was 400 cc over 12 hour 12/14 2021, the patient is being seen in the intensive care unit. This morning, the patient is in a normal sinus rhythm. He did not have any wide-complex tachycardic events overnight. He is currently on a combination of Toprol-XL 25 mg twice a day, Mexitil 150 mg by mouth twice a day and the patient is starting on by mouth amiodarone coming off the amiodarone drip. I was quite concerned about his abdominal situation yesterday and there was a concern of a acute cholecystitis based on the ultrasound findings. There was also concern about ongoing mechanical obstruction as the colostomy stoma looked pale. Based on that, CAT scan of the abdomen was obtained yesterday and the results were discussed with the general surgeon. In summary, a detailed description of the abdominal findings was given in the CAT scan. Based on my understanding with the surgeons evaluation, the patient still has an area of a parastomal hernia which is fat filled and there is some ongoing ileus, unsure of there is any ongoing mechanical obstruction of the small bowel. There is an expected outcome following surgery. NG tube was in place and the patient had a moderate size hiatal hernia. There was contrast backing up into the esophagus. At the same time, there was a foci of air in the right upper quadrant which could be potentially postsurgical in nature. As such, there was no indication for any acute abdomen. There was generalized anasarca and moderate degree of abdominal and pelvic ascites. There was also a small and new bilateral pleural effusion more so on the right compared to the left lung with some adjacent atelectasis and some areas of patchy groundglass pulmonary infiltrates in lung bases and interval placement of a left ureteral stent and this was done by urology for obstructive uropathy. Gallbladder itself was hydropic with cholelithiasis. There was some possible surrounding inflammation versus changes related to anasarca. Nevertheless, on examination, the patient does not have any significant tenderness in the right upper quadrant. In terms of his LFTs, the patient's ALT is 54 and the AST is 127 and the alkaline phosphatase is 181. His current bilirubin is at 1.6. Note that his LFTs have been improving consistently. His creatinine is down to 1.6 with a BUN of 55 and his sodium level is at 136. White cell count is lower down to 33 with a hemoglobin of 10.7 and platelet count of 173. The patient remains on antibiotics with IV Zosyn. On reevaluation of the stoma, the stoma itself looks pale and there is no output in the colostomy bag. NG tube is in place and output has been in the order of 300 mL overnight. The patient remains in IV heparin for now. Objective - Vital Signs Vital signs: Vital Signs Temp 97.8 F 12/14/21 04:00 Pulse 68 12/14/21 07:00 Resp 22 12/14/21 07:00 BP 109/63 12/14/21 07:00 Pulse Ox 94 L 12/14/21 07:00 Intake & Output 12/13/21 12/14/21 12/14/21 18:59 06:59 18:59 Intake Total 3052.102 1108.37 91.67 Output Total 1240 512 38 Balance 1812.102 596.37 53.67 Weight 90.4 kg 90 kg Intake: IV 1470 1108.37 91.67 Amiodarone 0.5mg 183.37 16.67 Dextrose 5% in Water 1, 525 825 75 000 ml @ 75 mls/hr IV . [id number] ANGELITA with Sodium Bicarb (1 Meq/ml) 150 ml Rx#:[id number] Lactated Ringers 1,000 ml 520 @ 125 mls/hr IV .Q8H ANGEL[facility] Rx#:[id number] Piperacillin-Tazobactam 3 225 100 .375 gm In Sodium Chloride 0.9% 100 ml @ 25 mls/hr IVPB Q8HR ANG[facility] Rx# :[id number] Potassium Chloride 10 meq 200 In Water For Injection 1 100ml.bag @ 100 mls/hr IVPB Q1H ANGELITA Rx#: [id number] Intake, IV Titration 382.102 Amount Amiodarone 450 mg In 238.894 Dextrose 5% in Water 250 ml @ 0.5 MG/MIN 16.667 mls/hr IV .Q15H ANGELITA Rx#: [id number] Heparin Sod,Pork in 0.45% 143.208 NaCl 25,000 unit In 0.45 % NaCl 1 250ml.bag @ 12 UNITS/KG/HR 9.308 mls/hr IV .Q24H ANGELITA Rx#: [id number] Other 1200 Output: Gastric Drainage 800 Urine 440 512 38 Other: Voiding Method Indwelling Catheter Indwelling Catheter - Exam No acute distress, oriented, the patient is pale, and looks chronically ill. Currently on 2 L of oxygen by nasal cannula. NG tube is also in place. Head exam was generally normal. There was no scleral icterus or corneal arcus. Mucous membranes were moist. HEENT examination is grossly unremarkable. NG tube is noted. Neck supple. Full range of motion. No adenopathy thyromegaly or neck vein distention. Cardiovascular examination reveals regular rhythm rate. S1-S2 normal. No S3 or S4. No discernible murmur noted The patient has a pacemaker pocket over the left anterior chest area/AICD pocket. Lungs reveal scattered mild rhonchi. No wheezes or crackles. Breath sounds equal. Saturations 94% on 2 L. Abdomen soft without bowel sounds. A dressing is noted over the recent exploratory laparotomy. There is a colostomy in the left lower quadrant. The colostomy site is quite pale and nonfunctional this point in time. There is no output in the colostomy bag. No direct tenderness in the right upper quadrant. No rebound tenderness no guarding. Surgical wound site is dry clean and intact. Bowel sounds are extensively hypoactive. The abdominal exam is essentially unchanged compared to yesterday. Extremities are intact. No cyanosis clubbing or edema. Skin is without rash or lesion. Neurologic examination is brief but nonfocal. - Labs CBC & Chem 7: 12/14/21 07:28 12/14/21 07:28 Labs: Abnormal Lab Results - Last 24 Hours (Table) 12/13/21 12/13/21 12/13/21 Range/Units 05:28 08:31 15:20 WBC (3.8-10.6) k/uL RBC (4.30-5.90) m/uL Hgb (13.0-17.5) gm/dL Hct (39.0-53.0) % Neutrophils # (Manual) 36.00 H (1.3-7.7) k/uL Monocytes # (Manual) 1.55 H (0-1.0) k/uL APTT (22.0-30.0) sec Sodium (137-145) mmol/L Potassium (3.5-5.1) mmol/L Chloride (98-107) mmol/L BUN (9-20) mg/dL Creatinine (0.66-1.25) mg/dL Glucose (74-99) mg/dL POC Glucose (mg/dL) (75-99) mg/dL Calcium (8.4-10.2) mg/dL Total Bilirubin (0.2-1.3) mg/dL ALT (4-49) U/L Alkaline Phosphatase (38-126) U/L CK-MB (CK-2) 2.7 H 3.9 H (0.0-2.4) ng/mL Troponin I 0.045 H* (0.000-0.034) ng/mL Total Protein (6.3-8.2) g/dL Albumin (3.5-5.0) g/dL 12/13/21 12/13/21 12/13/21 Range/Units 15:20 17:37 20:10 WBC (3.8-10.6) k/uL RBC (4.30-5.90) m/uL Hgb (13.0-17.5) gm/dL Hct (39.0-53.0) % Neutrophils # (Manual) (1.3-7.7) k/uL Monocytes # (Manual) (0-1.0) k/uL APTT 61.5 H (22.0-30.0) sec Sodium (137-145) mmol/L Potassium (3.5-5.1) mmol/L Chloride (98-107) mmol/L BUN (9-20) mg/dL Creatinine (0.66-1.25) mg/dL Glucose (74-99) mg/dL POC Glucose (mg/dL) 140 H (75-99) mg/dL Calcium (8.4-10.2) mg/dL Total Bilirubin (0.2-1.3) mg/dL ALT (4-49) U/L Alkaline Phosphatase (38-126) U/L CK-MB (CK-2) 4.6 H (0.0-2.4) ng/mL Troponin I 0.035 H* (0.000-0.034) ng/mL Total Protein (6.3-8.2) g/dL Albumin (3.5-5.0) g/dL 12/14/21 12/14/21 12/14/21 Range/Units 00:36 06:40 07:28 WBC (3.8-10.6) k/uL RBC (4.30-5.90) m/uL Hgb (13.0-17.5) gm/dL Hct (39.0-53.0) % Neutrophils # (Manual) (1.3-7.7) k/uL Monocytes # (Manual) (0-1.0) k/uL APTT (22.0-30.0) sec Sodium 136 L (137-145) mmol/L Potassium 3.3 L (3.5-5.1) mmol/L Chloride 110 H (98-107) mmol/L BUN 55 H (9-20) mg/dL Creatinine 1.62 H (0.66-1.25) mg/dL Glucose 144 H (74-99) mg/dL POC Glucose (mg/dL) 143 H 135 H (75-99) mg/dL Calcium 7.1 L (8.4-10.2) mg/dL Total Bilirubin 1.6 H (0.2-1.3) mg/dL ALT 127 H (4-49) U/L Alkaline Phosphatase 181 H (38-126) U/L CK-MB (CK-2) (0.0-2.4) ng/mL Troponin I (0.000-0.034) ng/mL Total Protein 3.9 L (6.3-8.2) g/dL Albumin 1.7 L (3.5-5.0) g/dL 12/14/21 12/14/21 Range/Units 07:28 08:47 WBC 33.1 H (3.8-10.6) k/uL RBC 3.32 L (4.30-5.90) m/uL Hgb 10.7 L D (13.0-17.5) gm/dL Hct 32.8 L (39.0-53.0) % Neutrophils # (Manual) (1.3-7.7) k/uL Monocytes # (Manual) (0-1.0) k/uL APTT 62.2 H (22.0-30.0) sec Sodium (137-145) mmol/L Potassium (3.5-5.1) mmol/L Chloride (98-107) mmol/L BUN (9-20) mg/dL Creatinine (0.66-1.25) mg/dL Glucose (74-99) mg/dL POC Glucose (mg/dL) (75-99) mg/dL Calcium (8.4-10.2) mg/dL Total Bilirubin (0.2-1.3) mg/dL ALT (4-49) U/L Alkaline Phosphatase (38-126) U/L CK-MB (CK-2) (0.0-2.4) ng/mL Troponin I (0.000-0.034) ng/mL Total Protein (6.3-8.2) g/dL Albumin (3.5-5.0) g/dL Microbiology - Last 24 Hours (Table) 12/08/21 16:46 Blood Culture - Preliminary Blood No Growth after 120 hours Assessment and Plan Plan: 1 Status post exploratory laparotomy, lysis of adhesions, repair of parastomal hernia, small bowel resection, 12/09/2021. There may be also a component of diverticulitis/ischemic bowel adjacent to the hernia. The patient underwent expiratory laparotomy. The patient is currently nothing by mouth. NG tube is in place. The patient is currently on antibiotics and the patient is currently on IV Zosyn. He is on no pressors. He is febrile. His T-max was 99. White cell count remains elevated at 33. The patient is currently postop day #5. Repeat CAT scan of the abdomen was noted and there is hydropic gallbladder along with cholelithiasis, LFTs are improving and at the same time the patient continues to have ileus, ventral hernia, and the stoma itself is pale and nonfunctional at this point in time. The patient remains nothing by mouth. NG tube is in place. 2 Pseudomonas aeruginosa urinary tract infection, and likely sepsis. Status post left ureteral stent, for hydronephrosis and renal calculi, 12/09/2021. The patient has some indication for some mild right-sided hydronephrosis and this will be further discussed with urology. He remains on IV Zosyn 3 Wide-complex tachycardia, new since admission.She is known to have ischemic cardiomyopathy with previous history of coronary artery disease and V. tach and the patient has undergone previous VT ablation currently has an AICD in place. The patient is currently on combination of amiodarone, Mexitil and Toprol-XL. Noted the patient had a internal rotation of the AICD yesterday and he was having apparently episodes of nonsustained VT. He did not receive any shock. 4 transaminitis, which may relate to underlying cholecystitis. Consider acute cholecystitis. General surgeries on the case. The CAT scan of the abdomen shows hydropic gallbladder with cholelithiasis. LFTs are improving on today's evaluation the patient does not have any right upper quadrant tenderness. 5 Anion gap metabolic acidosis, likely related to underlying sepsis. The serum bicarb is up to 22 6 acute kidney injury, on top of chronic kidney disease. The patient has likely an underlying chronic stage III kidney disease. 7 acute leukocytosis 8 History of CAD, status post heart catheterization with stent placement. 9 history of nonsustained VT, post VT ablation and the patient has a History of AICD placement. 10 History of sleep apnea syndrome. 11 History of hyperlipidemia. 12 History of hypertension. 13 History of colon cancer, status post colectomy with colostomy. 14 History of deep venous thrombosis. 15 paroxysmal atrial fibrillation, currently on IV heparin Plan: Switch this patient to normal saline at the rate of 75 mL an hour echocardiogram was done today, results are still pending Continue IV Zosyn Monitor WBC count Keep NPO Medication adjustments done regarding ventricle tachycardia was noted and the patient is currently on Toprol-XL, Mexitil and amiodarone PO Monitor LFTs Incentive spirometer Keep NG tube in place Monitor colostomy output, none for now and the CT of the abdoemn noted Monitor renal function and white count Continue IV heparin Very critical condition. We'll continue to follow make further recommendations based on his progress. Evaluation was done and morning 30 minutes. Time with Patient: Greater than 30
[2021-12-14] MEDS: METOPROLOL SUCCINATE (ER) 25 MG TAB.ER.24H PO SCH ×2 (10:27→20:26)
[2021-12-14] MEDS: FINASTERIDE 5 MG TAB PO SCH (10:27)
[2021-12-14] MEDS: MEXILETINE 150 MG CAP PO SCH ×2 (10:27→21:38)
[2021-12-14] MEDS: SPIRONOLACTONE 25 MG TAB PO SCH (10:28)
[2021-12-14] MEDS: FAMOTIDINE 20 MG/2 ML VIAL IV SCH (10:28)
[2021-12-14] MEDS: AMIODARONE 200 MG TAB PO SCH ×2 (10:29→21:22)
[2021-12-14] MEDS: SODIUM CHLORIDE 0.9% 1,000 ML IV SCH ×2 (10:44→22:48)
[2021-12-14 11:57] LABS: Glucose,Whole Blood 138 mg/dL (75-99)
[2021-12-14 12:50] LABS: RBC Morphology Normal
[2021-12-14] MEDS: POTASSIUM CHLORIDE 20 MEQ in WATER FOR INJECTION 1 100ML.BAG IVPB SCH ×2 (13:49→16:19)
--- NOTE | 2021-12-14 14:15 | P.PN ---
<Bee Fernandes - Last Filed: 12/14/21 14:04> Subjective Progress Note Date: 12/14/21 CHIEF COMPLAINT: Small bowel ejection HISTORY OF PRESENT ILLNESS: Patient is postop day #5 status post exploratory laparotomy, lysis of extensive adhesions, repair of parastomal hernia and small bowel resection for small bowel obstruction due to parastomal hernia and adhesions. Patient is sitting up in bed. He reports that his pain is controlled. Patient had 50 mL of bilious output from NG tube morning and 800 mL output through the day yesterday. No further episodes of nonsustained V. tach. Ostomy bag may have a small amount of air present. No stool present. Afebrile. WBC down from 38.8-33.1 hemoglobin 10.7 platelets 173 potassium 3.3 creatinine 1.6 to total bili 1.6 LFTs trending downwards PHYSICAL EXAM: VITAL SIGNS: Reviewed. GENERAL: Well-developed in no acute distress. HEENT: No sclera icterus. Extraocular movements grossly intact. Moist buccal mucosa. Head is atraumatic, normocephalic. ABDOMEN: Soft. Minimal abdominal distention. Minimal tenderness around incision site. Incision site clean dry and intact. Ostomy stoma more pink today. Small amount of air noted in ostomy bag NEUROLOGIC: awake and alert ASSESSMENT: 1. 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 Left hydronephrosis secondary to left ureteral stricture status post cystoscopy with left ureteroscopy balloon dilatation of the left distal ureteral stricture and left ureteral stent insertion by Dr. Cool 3. Sustained ventricle tachycardia 4. Hypokalemia 5. Distended gallbladder with cholelithiasis 6. Possible postoperative ileus 7. Leukocytosis PLAN: -Continue ICU management -Continue supportive care -Continue antibiotics -Keep patient nothing by mouth -Continue NG tube for decompression -Potassium being replaced -Encourage incentive spirometer use -Currently on IV heparin for anticoagulation -Further recommendations forthcoming per surgeon Physician Bioinformatics Scientist note has been reviewed by physician. Signing provider agrees with the documented findings, assessment, and plan of care. Objective - Vital Signs Vital signs: Vital Signs Temp 97.8 F 12/14/21 12:00 Pulse 73 12/14/21 12:00 Resp 26 H 12/14/21 12:00 BP 105/65 03/15/22 12:00 Pulse Ox 94 L 12/14/21 12:00 Intake & Output 12/13/21 12/14/21 12/14/21 18:59 06:59 18:59 Intake Total 3052.102 1108.37 741.68 Output Total 1240 512 543 Balance 1812.102 596.37 198.68 Weight 90.4 kg 90 kg 90 kg Intake: IV 1470 1108.37 591.68 Amiodarone 0.5mg 183.37 66.68 Dextrose 5% in Water 1, 525 825 375 000 ml @ 75 mls/hr IV . [id number] [facility] with Sodium Bicarb (1 Meq/ml) 150 ml Rx#:[id number] Lactated Ringers 1,000 ml 520 @ 125 mls/hr IV .Q8H [facility] Rx#:[id number] Piperacillin-Tazobactam 3 225 100 .375 gm In Sodium Chloride 0.9% 100 ml @ 25 mls/hr IVPB Q8HR [facility] Rx# :[id number] Potassium Chloride 10 meq 200 In Water For Injection 1 100ml.bag @ 100 mls/hr IVPB Q1H [facility] Rx#: [id number] Sodium Chloride 0.9% 1, 150 000 ml @ 75 mls/hr IV . [id number] [facility] Rx#:[id number] Intake, IV Titration 382.102 Amount Amiodarone 450 mg In 238.894 Dextrose 5% in Water 250 ml @ 0.5 MG/MIN 16.667 mls/hr IV .Q15H [facility] Rx#: [id number] Heparin Sod,Pork in 0.45% 143.208 NaCl 25,000 unit In 0.45 % NaCl 1 250ml.bag @ 12 UNITS/KG/HR 9.308 mls/hr IV .Q24H [facility] Rx#: [id number] Oral 150 Other 1200 Output: Gastric Drainage 800 250 Urine 440 512 293 Other: Voiding Method Indwelling Catheter Indwelling Catheter Indwelling Catheter - Labs CBC & Chem 7: 12/14/21 07:28 12/14/21 07:28 Labs: Abnormal Lab Results - Last 24 Hours (Table) 12/13/21 12/13/21 12/13/21 Range/Units 15:20 15:20 17:37 WBC (3.8-10.6) k/uL RBC (4.30-5.90) m/uL Hgb (13.0-17.5) gm/dL Hct (39.0-53.0) % Neutrophils # (1.3-7.7) k/uL Lymphocytes # (1.0-4.8) k/uL Monocytes # (0-1.0) k/uL APTT 61.5 H (22.0-30.0) sec Sodium (137-145) mmol/L Potassium (3.5-5.1) mmol/L Chloride (98-107) mmol/L BUN (9-20) mg/dL Creatinine (0.66-1.25) mg/dL Glucose (74-99) mg/dL POC Glucose (mg/dL) 140 H (75-99) mg/dL Calcium (8.4-10.2) mg/dL Total Bilirubin (0.2-1.3) mg/dL ALT (4-49) U/L Alkaline Phosphatase (38-126) U/L CK-MB (CK-2) 3.9 H (0.0-2.4) ng/mL Troponin I (0.000-0.034) ng/mL Total Protein (6.3-8.2) g/dL Albumin (3.5-5.0) g/dL 12/13/21 12/14/21 12/14/21 Range/Units 20:10 00:36 06:40 WBC (3.8-10.6) k/uL RBC (4.30-5.90) m/uL Hgb (13.0-17.5) gm/dL Hct (39.0-53.0) % Neutrophils # (1.3-7.7) k/uL Lymphocytes # (1.0-4.8) k/uL Monocytes # (0-1.0) k/uL APTT (22.0-30.0) sec Sodium (137-145) mmol/L Potassium (3.5-5.1) mmol/L Chloride (98-107) mmol/L BUN (9-20) mg/dL Creatinine (0.66-1.25) mg/dL Glucose (74-99) mg/dL POC Glucose (mg/dL) 143 H 135 H (75-99) mg/dL Calcium (8.4-10.2) mg/dL Total Bilirubin (0.2-1.3) mg/dL ALT (4-49) U/L Alkaline Phosphatase (38-126) U/L CK-MB (CK-2) 4.6 H (0.0-2.4) ng/mL Troponin I 0.035 H* (0.000-0.034) ng/mL Total Protein (6.3-8.2) g/dL Albumin (3.5-5.0) g/dL 12/14/21 12/14/21 12/14/21 Range/Units 07:28 07:28 08:47 WBC 33.1 H (3.8-10.6) k/uL RBC 3.32 L (4.30-5.90) m/uL Hgb 10.7 L D (13.0-17.5) gm/dL Hct 32.8 L (39.0-53.0) % Neutrophils # 31.1 H (1.3-7.7) k/uL Lymphocytes # 0.6 L (1.0-4.8) k/uL Monocytes # 1.1 H (0-1.0) k/uL APTT 62.2 H (22.0-30.0) sec Sodium 136 L (137-145) mmol/L Potassium 3.3 L (3.5-5.1) mmol/L Chloride 110 H (98-107) mmol/L BUN 55 H (9-20) mg/dL Creatinine 1.62 H (0.66-1.25) mg/dL Glucose 144 H (74-99) mg/dL POC Glucose (mg/dL) (75-99) mg/dL Calcium 7.1 L (8.4-10.2) mg/dL Total Bilirubin 1.6 H (0.2-1.3) mg/dL ALT 127 H (4-49) U/L Alkaline Phosphatase 181 H (38-126) U/L CK-MB (CK-2) (0.0-2.4) ng/mL Troponin I (0.000-0.034) ng/mL Total Protein 3.9 L (6.3-8.2) g/dL Albumin 1.7 L (3.5-5.0) g/dL 12/14/21 Range/Units 11:56 WBC (3.8-10.6) k/uL RBC (4.30-5.90) m/uL Hgb (13.0-17.5) gm/dL Hct (39.0-53.0) % Neutrophils # (1.3-7.7) k/uL Lymphocytes # (1.0-4.8) k/uL Monocytes # (0-1.0) k/uL APTT (22.0-30.0) sec Sodium (137-145) mmol/L Potassium (3.5-5.1) mmol/L Chloride (98-107) mmol/L BUN (9-20) mg/dL Creatinine (0.66-1.25) mg/dL Glucose (74-99) mg/dL POC Glucose (mg/dL) 138 H (75-99) mg/dL Calcium (8.4-10.2) mg/dL Total Bilirubin (0.2-1.3) mg/dL ALT (4-49) U/L Alkaline Phosphatase (38-126) U/L CK-MB (CK-2) (0.0-2.4) ng/mL Troponin I (0.000-0.034) ng/mL Total Protein (6.3-8.2) g/dL Albumin (3.5-5.0) g/dL Microbiology - Last 24 Hours (Table) 12/08/21 16:46 Blood Culture - Preliminary Blood No Growth after 120 hours <Juan Arvizu - Last Filed: 12/14/21 16:16> Subjective I have personally seen and examined the patient, reviewed the SEAT TRIMMER /PAs history, exam and MDM and agree with the assessment and plan as written. Based on total visit time, I have performed more than 50% of the visit. As above: Patient seems to be doing better. Abdominal exam remains relatively benign. Some serosanguineous drainage from the wound site. Patient has had some stool and air in the ostomy bag today. White blood cell count somewhat improved. Continue antibiotics. May began having popsicles intermittently. Continue supportive care in the ICU for now. Objective - Vital Signs Vital signs: Vital Signs Temp 97.8 F 12/14/21 12:00 Pulse 66 12/14/21 15:00 Resp 22 12/14/21 15:00 BP 98/58 12/14/21 15:00 Pulse Ox 93 L 12/14/21 15:00 Intake & Output 12/13/21 12/14/21 12/14/21 18:59 06:59 18:59 Intake Total 3052.102 1108.37 966.68 Output Total 1240 512 753 Balance 1812.102 596.37 213.68 Weight 90.4 kg 90 kg 90 kg Intake: IV 1470 1108.37 816.68 Amiodarone 0.5mg 183.37 66.68 Dextrose 5% in Water 1, 525 825 375 000 ml @ 75 mls/hr IV . [id number] [facility] with Sodium Bicarb (1 Meq/ml) 150 ml Rx#:[id number] Lactated Ringers 1,000 ml 520 @ 125 mls/hr IV .Q8H [facility] Rx#:[id number] Piperacillin-Tazobactam 3 225 100 .375 gm In Sodium Chloride 0.9% 100 ml @ 25 mls/hr IVPB Q8HR [facility] Rx# :[id number] Potassium Chloride 10 meq 200 In Water For Injection 1 100ml.bag @ 100 mls/hr IVPB Q1H [facility] Rx#: [id number] Sodium Chloride 0.9% 1, 375 000 ml @ 75 mls/hr IV . [id number] [facility] Rx#:[id number] Intake, IV Titration 382.102 Amount Amiodarone 450 mg In 238.894 Dextrose 5% in Water 250 ml @ 0.5 MG/MIN 16.667 mls/hr IV .Q15H [facility] Rx#: [id number] Heparin Sod,Pork in 0.45% 143.208 NaCl 25,000 unit In 0.45 % NaCl 1 250ml.bag @ 12 UNITS/KG/HR 9.308 mls/hr IV .Q24H [facility] Rx#: [id number] Oral 150 Other 1200 Output: Gastric Drainage 800 300 Urine 440 512 453 Other: Voiding Method Indwelling Catheter Indwelling Catheter Indwelling Catheter - Labs CBC & Chem 7: 12/14/21 07:28 12/14/21 07:28 Labs: Abnormal Lab Results - Last 24 Hours (Table) 12/13/21 12/13/21 12/14/21 Range/Units 17:37 20:10 00:36 WBC (3.8-10.6) k/uL RBC (4.30-5.90) m/uL Hgb (13.0-17.5) gm/dL Hct (39.0-53.0) % Neutrophils # (1.3-7.7) k/uL Lymphocytes # (1.0-4.8) k/uL Monocytes # (0-1.0) k/uL APTT (22.0-30.0) sec Sodium (137-145) mmol/L Potassium (3.5-5.1) mmol/L Chloride (98-107) mmol/L BUN (9-20) mg/dL Creatinine (0.66-1.25) mg/dL Glucose (74-99) mg/dL POC Glucose (mg/dL) 140 H 143 H (75-99) mg/dL Calcium (8.4-10.2) mg/dL Total Bilirubin (0.2-1.3) mg/dL ALT (4-49) U/L Alkaline Phosphatase (38-126) U/L CK-MB (CK-2) 4.6 H (0.0-2.4) ng/mL Troponin I 0.035 H* (0.000-0.034) ng/mL Total Protein (6.3-8.2) g/dL Albumin (3.5-5.0) g/dL 12/14/21 12/14/21 12/14/21 Range/Units 06:40 07:28 07:28 WBC 33.1 H (3.8-10.6) k/uL RBC 3.32 L (4.30-5.90) m/uL Hgb 10.7 L D (13.0-17.5) gm/dL Hct 32.8 L (39.0-53.0) % Neutrophils # 31.1 H (1.3-7.7) k/uL Lymphocytes # 0.6 L (1.0-4.8) k/uL Monocytes # 1.1 H (0-1.0) k/uL APTT (22.0-30.0) sec Sodium 136 L (137-145) mmol/L Potassium 3.3 L (3.5-5.1) mmol/L Chloride 110 H (98-107) mmol/L BUN 55 H (9-20) mg/dL Creatinine 1.62 H (0.66-1.25) mg/dL Glucose 144 H (74-99) mg/dL POC Glucose (mg/dL) 135 H (75-99) mg/dL Calcium 7.1 L (8.4-10.2) mg/dL Total Bilirubin 1.6 H (0.2-1.3) mg/dL ALT 127 H (4-49) U/L Alkaline Phosphatase 181 H (38-126) U/L CK-MB (CK-2) (0.0-2.4) ng/mL Troponin I (0.000-0.034) ng/mL Total Protein 3.9 L (6.3-8.2) g/dL Albumin 1.7 L (3.5-5.0) g/dL 12/14/21 12/14/21 Range/Units 08:47 11:56 WBC (3.8-10.6) k/uL RBC (4.30-5.90) m/uL Hgb (13.0-17.5) gm/dL Hct (39.0-53.0) % Neutrophils # (1.3-7.7) k/uL Lymphocytes # (1.0-4.8) k/uL Monocytes # (0-1.0) k/uL APTT 62.2 H (22.0-30.0) sec Sodium (137-145) mmol/L Potassium (3.5-5.1) mmol/L Chloride (98-107) mmol/L BUN (9-20) mg/dL Creatinine (0.66-1.25) mg/dL Glucose (74-99) mg/dL POC Glucose (mg/dL) 138 H (75-99) mg/dL Calcium (8.4-10.2) mg/dL Total Bilirubin (0.2-1.3) mg/dL ALT (4-49) U/L Alkaline Phosphatase (38-126) U/L CK-MB (CK-2) (0.0-2.4) ng/mL Troponin I (0.000-0.034) ng/mL Total Protein (6.3-8.2) g/dL Albumin (3.5-5.0) g/dL Microbiology - Last 24 Hours (Table) 12/08/21 16:46 Blood Culture - Preliminary Blood No Growth after 120 hours Assessment and Plan (1) SBO (small bowel obstruction) Current Visit: Yes Status: Acute Code(s): K56.609 - UNSP INTESTNL OBST, UNSP TO PARTIAL VERSUS COMPLETE OBST SNOMED Code(s): 540185007
[2021-12-14 16:00] LABS: Magnesium 2.2 mg/dL (1.6-2.3); Phosphorus 2.8 mg/dL (2.5-4.5)
--- NOTE | 2021-12-14 16:57 | P.PN ---
Subjective Progress Note Date: 12/14/21 Pt has no stool output from ostomy. Still having episodes of confusion. Still having episodes of sustained ventricular tachycardia. Is on amiodarone and mexiletine. Plans for CT of the abdomen/pelvis today to rule out bowel obstruction. Gen: awake, alert HEENT: normocephalic, atraumatic, good hearing acuity, moist mucous membranes Resp: good air exchange, breathing comfortably with no accessory muscle use CVS: good distal perfusion x 4, GI: soft, NTTP, ND : no SPT, no CVAT, fuentes catheter is present MSK: no pitting edema, no clubbing Neuro: non-focal, moving all extremities Psych: cooperative, euthymic mood Assessment/plan: #1 sepsis secondary to urinary company urinary tract infection -pseudomonas #2 small bowel obstruction can be secondary to underlying adhesions versus parastomal hernia? #3 coronary disease status post stent 2 #4 hyperlipidemia #5 essential hypertension #6 hyponatremia most likely related to dehydration #7 electrolyte abnormality secondary to above #8 CKD Secondary to Dehydration/Prerenal #9 transaminitis can be secondary to sepsis most likely #10 hypotension secondary to sepsis may be progressing towards septic shock.? Plan: -Admit to medicine for close monitoring -Aspiration/fall precaution/hob30 -Blood pressure continues to be labile. 500 mL bolus given. Case discussed with ICU transfer for close hemodynamic monitoring. Continue with LR. -Urine cultures reviewed showing Pseudomonas. Urine cultures positive susceptible to Zosyn which we will continue to complete 5 days. -Stent placed by urology needs outpatient follow-up as well. -Continue with IV fluids -Replace electrolyte when necessary -Continue to monitor LFTs obtain right upper quadrant ultrasound if it doesnt trend down -Obtain EKG -DVT prophylaxis Lovenox Objective - Vital Signs Vital signs: Vital Signs Temp 97.9 F 12/14/21 16:00 Pulse 64 12/14/21 16:00 Resp 22 12/14/21 16:00 BP 94/57 12/14/21 16:00 Pulse Ox 95 12/14/21 16:00 Intake & Output 12/13/21 12/14/21 12/14/21 18:59 06:59 18:59 Intake Total 3052.102 1108.37 966.68 Output Total 1240 512 753 Balance 1812.102 596.37 213.68 Weight 90.4 kg 90 kg 90 kg Intake: IV 1470 1108.37 816.68 Amiodarone 0.5mg 183.37 66.68 Dextrose 5% in Water 1, 525 825 375 000 ml @ 75 mls/hr IV . [id number] [facility] with Sodium Bicarb (1 Meq/ml) 150 ml Rx#:[id number] Lactated Ringers 1,000 ml 520 @ 125 mls/hr IV .Q8H [facility] Rx#:[id number] Piperacillin-Tazobactam 3 225 100 .375 gm In Sodium Chloride 0.9% 100 ml @ 25 mls/hr IVPB Q8HR [facility] Rx# :[id number] Potassium Chloride 10 meq 200 In Water For Injection 1 100ml.bag @ 100 mls/hr IVPB Q1H [facility] Rx#: [id number] Sodium Chloride 0.9% 1, 375 000 ml @ 75 mls/hr IV . [id number] [facility] Rx#:[id number] Intake, IV Titration 382.102 Amount Amiodarone 450 mg In 238.894 Dextrose 5% in Water 250 ml @ 0.5 MG/MIN 16.667 mls/hr IV .Q15H [facility] Rx#: [id number] Heparin Sod,Pork in 0.45% 143.208 NaCl 25,000 unit In 0.45 % NaCl 1 250ml.bag @ 12 UNITS/KG/HR 9.308 mls/hr IV .Q24H [facility] Rx#: [id number] Oral 150 Other 1200 Output: Gastric Drainage 800 300 Urine 440 512 453 Other: Voiding Method Indwelling Catheter Indwelling Catheter Indwelling Catheter - Labs CBC & Chem 7: 12/14/21 07:28 12/14/21 07:28 Labs: Abnormal Lab Results - Last 24 Hours (Table) 12/13/21 12/13/21 12/14/21 Range/Units 17:37 20:10 00:36 WBC (3.8-10.6) k/uL RBC (4.30-5.90) m/uL Hgb (13.0-17.5) gm/dL Hct (39.0-53.0) % Neutrophils # (1.3-7.7) k/uL Lymphocytes # (1.0-4.8) k/uL Monocytes # (0-1.0) k/uL APTT (22.0-30.0) sec Sodium (137-145) mmol/L Potassium (3.5-5.1) mmol/L Chloride (98-107) mmol/L BUN (9-20) mg/dL Creatinine (0.66-1.25) mg/dL Glucose (74-99) mg/dL POC Glucose (mg/dL) 140 H 143 H (75-99) mg/dL Calcium (8.4-10.2) mg/dL Total Bilirubin (0.2-1.3) mg/dL ALT (4-49) U/L Alkaline Phosphatase (38-126) U/L CK-MB (CK-2) 4.6 H (0.0-2.4) ng/mL Troponin I 0.035 H* (0.000-0.034) ng/mL Total Protein (6.3-8.2) g/dL Albumin (3.5-5.0) g/dL 12/14/21 12/14/21 12/14/21 Range/Units 06:40 07:28 07:28 WBC 33.1 H (3.8-10.6) k/uL RBC 3.32 L (4.30-5.90) m/uL Hgb 10.7 L D (13.0-17.5) gm/dL Hct 32.8 L (39.0-53.0) % Neutrophils # 31.1 H (1.3-7.7) k/uL Lymphocytes # 0.6 L (1.0-4.8) k/uL Monocytes # 1.1 H (0-1.0) k/uL APTT (22.0-30.0) sec Sodium 136 L (137-145) mmol/L Potassium 3.3 L (3.5-5.1) mmol/L Chloride 110 H (98-107) mmol/L BUN 55 H (9-20) mg/dL Creatinine 1.62 H (0.66-1.25) mg/dL Glucose 144 H (74-99) mg/dL POC Glucose (mg/dL) 135 H (75-99) mg/dL Calcium 7.1 L (8.4-10.2) mg/dL Total Bilirubin 1.6 H (0.2-1.3) mg/dL ALT 127 H (4-49) U/L Alkaline Phosphatase 181 H (38-126) U/L CK-MB (CK-2) (0.0-2.4) ng/mL Troponin I (0.000-0.034) ng/mL Total Protein 3.9 L (6.3-8.2) g/dL Albumin 1.7 L (3.5-5.0) g/dL 12/14/21 12/14/21 Range/Units 08:47 11:56 WBC (3.8-10.6) k/uL RBC (4.30-5.90) m/uL Hgb (13.0-17.5) gm/dL Hct (39.0-53.0) % Neutrophils # (1.3-7.7) k/uL Lymphocytes # (1.0-4.8) k/uL Monocytes # (0-1.0) k/uL APTT 62.2 H (22.0-30.0) sec Sodium (137-145) mmol/L Potassium (3.5-5.1) mmol/L Chloride (98-107) mmol/L BUN (9-20) mg/dL Creatinine (0.66-1.25) mg/dL Glucose (74-99) mg/dL POC Glucose (mg/dL) 138 H (75-99) mg/dL Calcium (8.4-10.2) mg/dL Total Bilirubin (0.2-1.3) mg/dL ALT (4-49) U/L Alkaline Phosphatase (38-126) U/L CK-MB (CK-2) (0.0-2.4) ng/mL Troponin I (0.000-0.034) ng/mL Total Protein (6.3-8.2) g/dL Albumin (3.5-5.0) g/dL Microbiology - Last 24 Hours (Table) 12/08/21 16:46 Blood Culture - Preliminary Blood No Growth after 120 hours
[2021-12-14 17:50] LABS: Glucose,Whole Blood 122 mg/dL (75-99)
[2021-12-14] MEDS ORDERED: MVI, ADULT NO.4 WITH VIT K 10 ML, TRACE (CONC-1ML/DOSE) 1 ML in AMINO ACID 5%-D20W+LYTE... IV SCH ×3 (18:30)
[2021-12-14] MEDS: INSULIN ASPART (NovoLOG) 100 UNIT/ML VIAL SQ SCH (19:41)
[2021-12-14] MEDS: HEPARIN SOD,PORK IN 0.45% NACL 25,000 UNIT in 0.45% NACL 1 250ML.BAG IV SCH (19:56)
[2021-12-14] MEDS: TAMSULOSIN 0.4 MG CAP.ER.24H PO SCH (20:26)
[2021-12-14] MEDS: ATORVASTATIN 40 MG TAB PO SCH (20:26)
[2021-12-15 00:03] LABS: Glucose,Whole Blood 169 mg/dL (75-99)
[2021-12-15] MEDS: INSULIN ASPART (NovoLOG) 100 UNIT/ML VIAL SQ SCH ×4 (00:47→18:37)
[2021-12-15 05:56] LABS: Glucose,Whole Blood 138 mg/dL (75-99)
[2021-12-15 07:10] LABS: Ionized Calcium 4.9 mg/dL (4.5-5.3)
[2021-12-15 07:21] LABS: Albumin 1.6 g/dL (3.5-5.0); Calcium 6.8 mg/dL (8.4-10.2); Magnesium 2.2 mg/dL (1.6-2.3); Phosphorus 2.9 mg/dL (2.5-4.5); Potassium 3.3 mmol/L (3.5-5.1); Total Bilirubin 1.1 mg/dL (0.2-1.3); Total Protein 3.6 g/dL (6.3-8.2)
[2021-12-15] MEDS ORDERED: Potassium Replacement Protocol 1 EACH MISC MISCELLANE PRN (07:39)
--- NOTE | 2021-12-15 08:33 | P.PN ---
Subjective Progress Note Date: 12/15/21 Principal diagnosis: Ventricular tachycardia The patient is an 80-year-old gentleman with a past medical history significant for CAD and prior stenting of the RCA and LAD as well as ischemic cardiomyopathy and status post AICD and also status post VT ablation in 2020 as well as hypertension and dyslipidemia was admitted to the hospital with abdominal discomfort and underwent exploratory laparotomy with lysis of adhesion and repair of parastomal hernia and small bowel resection. The patient was transferred to the intensive care unit yesterday because he did have an episode of wide complex tachycardia to me looks like ventricular tachycardia. He was started on amiodarone IV. The patient was seen this morning. He seems to be asymptomatic from a cardiovascular standpoint of view. He is somewhat tired because he did not have a good sleep last night. No more episodes of sustained ventricular tachycardia noted. Currently he is on mexiletine as well as amiodarone. He is on heparin IV. From a cardiac standpoint of view, we can switch the patient back to oral anticoagulation if it's safe from the surgical standpoint of view. Objective - Vital Signs Vital signs: Vital Signs Temp 98.4 F 12/15/21 04:00 Pulse 61 12/15/21 07:00 Resp 25 H 12/15/21 07:00 BP 114/59 12/15/21 07:00 Pulse Ox 95 12/15/21 07:00 Intake & Output 12/14/21 12/15/21 12/15/21 18:59 06:59 18:59 Intake Total 1116.68 1835 Output Total 843 2430 Balance 273.68 -595 Weight 90 kg 90.7 kg Intake: IV 966.68 975 Amiodarone 0.5mg 66.68 Dextrose 5% in Water 1, 375 000 ml @ 75 mls/hr IV . [id number] [facility] with Sodium Bicarb (1 Meq/ml) 150 ml Rx#:[id number] Sodium Chloride 0.9% 1, 525 975 000 ml @ 75 mls/hr IV . [id number] [facility] Rx#:[id number] Intake, IV Titration 360 Amount Mvi, Adult No.4 with Vit 360 K 10 ml Trace (Conc-1Ml/ Dose) 1 ml In Amino Acid 5%-D20w+Lytes*E* 1,000 ml @ 30 mls/hr IV .Q24H [facility] Rx#:[id number] Oral 150 500 Output: Gastric Drainage 300 1500 Urine 543 680 Stool 250 Other: Voiding Method Indwelling Catheter Indwelling Catheter - Constitutional General appearance: Present: no acute distress - Respiratory Respiratory: bilateral: diminished - Cardiovascular Rhythm: regular - Labs CBC & Chem 7: 12/14/21 07:28 12/15/21 06:42 Labs: Abnormal Lab Results - Last 24 Hours (Table) 12/14/21 12/14/21 12/14/21 Range/Units 07:28 08:47 11:56 Neutrophils # 31.1 H (1.3-7.7) k/uL Lymphocytes # 0.6 L (1.0-4.8) k/uL Monocytes # 1.1 H (0-1.0) k/uL APTT 62.2 H (22.0-30.0) sec Potassium (3.5-5.1) mmol/L Chloride (98-107) mmol/L BUN (9-20) mg/dL Creatinine (0.66-1.25) mg/dL Glucose (74-99) mg/dL POC Glucose (mg/dL) 138 H (75-99) mg/dL Calcium (8.4-10.2) mg/dL ALT (4-49) U/L Alkaline Phosphatase (38-126) U/L Total Protein (6.3-8.2) g/dL Albumin (3.5-5.0) g/dL 12/14/21 12/15/21 12/15/21 Range/Units 17:38 00:00 05:54 Neutrophils # (1.3-7.7) k/uL Lymphocytes # (1.0-4.8) k/uL Monocytes # (0-1.0) k/uL APTT (22.0-30.0) sec Potassium (3.5-5.1) mmol/L Chloride (98-107) mmol/L BUN (9-20) mg/dL Creatinine (0.66-1.25) mg/dL Glucose (74-99) mg/dL POC Glucose (mg/dL) 122 H 169 H 138 H (75-99) mg/dL Calcium (8.4-10.2) mg/dL ALT (4-49) U/L Alkaline Phosphatase (38-126) U/L Total Protein (6.3-8.2) g/dL Albumin (3.5-5.0) g/dL 12/15/21 12/15/21 Range/Units 06:42 06:42 Neutrophils # (1.3-7.7) k/uL Lymphocytes # (1.0-4.8) k/uL Monocytes # (0-1.0) k/uL APTT 50.6 H (22.0-30.0) sec Potassium 3.3 L (3.5-5.1) mmol/L Chloride 113 H (98-107) mmol/L BUN 55 H (9-20) mg/dL Creatinine 1.63 H (0.66-1.25) mg/dL Glucose 127 H (74-99) mg/dL POC Glucose (mg/dL) (75-99) mg/dL Calcium 6.8 L (8.4-10.2) mg/dL ALT 88 H (4-49) U/L Alkaline Phosphatase 160 H (38-126) U/L Total Protein 3.6 L (6.3-8.2) g/dL Albumin 1.6 L (3.5-5.0) g/dL Microbiology - Last 24 Hours (Table) 12/08/21 16:46 Blood Culture - Final Blood No Growth after 144 hours Assessment and Plan Assessment: Assessment #1 status post exploratory laparotomy #2 sustained ventricular tachycardia #3 coronary artery disease #4 ischemic cardiomyopathy #5 status post VT ablation #Multiple comorbid conditions Plan #1 continue the current medical regimen #2 continue mexiletine and amiodarone are on #3 switch the patient to oral anticoagulation if it's safe from the surgical standpoint of view #4 follow-up with the patient
[2021-12-15] MEDS: PIPERACILLIN-TAZOBACTAM 3.375 GM in SODIUM CHLORIDE 0.9% 100 ML IVPB SCH ×2 (08:56→16:47)
[2021-12-15] MEDS: POTASSIUM CHLORIDE 20 MEQ in WATER FOR INJECTION 1 100ML.BAG IVPB SCH ×4 (08:57→20:52)
[2021-12-15] MEDS: FAMOTIDINE 20 MG/2 ML VIAL IV SCH (09:08)
[2021-12-15] MEDS: METOPROLOL SUCCINATE (ER) 25 MG TAB.ER.24H PO SCH ×2 (09:24→20:45)
[2021-12-15] MEDS: SPIRONOLACTONE 25 MG TAB PO SCH (09:24)
[2021-12-15] MEDS: MEXILETINE 150 MG CAP PO SCH ×2 (09:24→20:51)
[2021-12-15] MEDS: FINASTERIDE 5 MG TAB PO SCH (09:25)
[2021-12-15] MEDS: AMIODARONE 200 MG TAB PO SCH ×2 (09:30→20:51)
--- NOTE | 2021-12-15 09:50 | P.PN ---
Subjective Progress Note Date: 12/15/21 Pt has now on CLD, on TPN day 2, ostomy now has output. sustained vtach is now controlled on mexilitine and amiodarone. Gen: awake, alert HEENT: normocephalic, atraumatic, good hearing acuity, moist mucous membranes Resp: good air exchange, breathing comfortably with no accessory muscle use CVS: good distal perfusion x 4, GI: soft, NTTP, ND : no SPT, no CVAT, fuentes catheter is present MSK: no pitting edema, no clubbing Neuro: non-focal, moving all extremities Psych: cooperative, euthymic mood Assessment/plan: # sepsis secondary to urinary company urinary tract infection -pseudomonas # obstructive uropathy s/p L nephroureteral stent on 12/09 # small bowel obstruction can be secondary to underlying adhesions versus parastomal hernia s/p small bowel resection on 12/09 # sustained ventricular tachycardia # coronary disease status post stent 2 # hyperlipidemia # essential hypertension # CKD Plan: -Admit to medicine, telemetry -Aspiration/fall precaution/hob30 -Urine cultures reviewed showing Pseudomonas. Urine cultures positive susceptible to Zosyn which we will continue to complete 5 days, to be completed 12/16 -Stent placed by urology needs outpatient follow-up as well. -CLD and TPN day 2, consideration of d/c'ing TPN and removal of NGT, defer to surgery -on oral amiodarone and mexilitine -off of pressors - Objective - Vital Signs Vital signs: Vital Signs Temp 97.8 F 12/15/21 09:00 Pulse 62 12/15/21 09:00 Resp 27 H 12/15/21 09:00 BP 100/59 12/15/21 09:00 Pulse Ox 95 12/15/21 09:00 Intake & Output 12/14/21 12/15/21 12/15/21 18:59 06:59 18:59 Intake Total 1116.68 1835 220 Output Total 843 2430 125 Balance 273.68 -595 95 Weight 90 kg 90.7 kg Intake: IV 966.68 975 150 Amiodarone 0.5mg 66.68 Dextrose 5% in Water 1, 375 000 ml @ 75 mls/hr IV . [id number] [facility] with Sodium Bicarb (1 Meq/ml) 150 ml Rx#:[id number] Sodium Chloride 0.9% 1, 525 975 150 000 ml @ 75 mls/hr IV . [id number] [facility] Rx#:[id number] Intake, IV Titration 360 70 Amount Mvi, Adult No.4 with Vit 360 70 K 10 ml Trace (Conc-1Ml/ Dose) 1 ml In Amino Acid 5%-D20w+Lytes*E* 1,000 ml @ 30 mls/hr IV .Q24H [facility] Rx#:[id number] Oral 150 500 Output: Gastric Drainage 300 1500 Urine 543 680 125 Stool 250 Other: Voiding Method Indwelling Catheter Indwelling Catheter - Labs CBC & Chem 7: 12/14/21 07:28 12/15/21 06:42 Labs: Abnormal Lab Results - Last 24 Hours (Table) 12/14/21 12/14/21 12/14/21 Range/Units 07:28 11:56 17:38 Neutrophils # 31.1 H (1.3-7.7) k/uL Lymphocytes # 0.6 L (1.0-4.8) k/uL Monocytes # 1.1 H (0-1.0) k/uL APTT (22.0-30.0) sec Potassium (3.5-5.1) mmol/L Chloride (98-107) mmol/L BUN (9-20) mg/dL Creatinine (0.66-1.25) mg/dL Glucose (74-99) mg/dL POC Glucose (mg/dL) 138 H 122 H (75-99) mg/dL Calcium (8.4-10.2) mg/dL ALT (4-49) U/L Alkaline Phosphatase (38-126) U/L Total Protein (6.3-8.2) g/dL Albumin (3.5-5.0) g/dL 12/15/21 12/15/21 12/15/21 Range/Units 00:00 05:54 06:42 Neutrophils # (1.3-7.7) k/uL Lymphocytes # (1.0-4.8) k/uL Monocytes # (0-1.0) k/uL APTT (22.0-30.0) sec Potassium 3.3 L (3.5-5.1) mmol/L Chloride 113 H (98-107) mmol/L BUN 55 H (9-20) mg/dL Creatinine 1.63 H (0.66-1.25) mg/dL Glucose 127 H (74-99) mg/dL POC Glucose (mg/dL) 169 H 138 H (75-99) mg/dL Calcium 6.8 L (8.4-10.2) mg/dL ALT 88 H (4-49) U/L Alkaline Phosphatase 160 H (38-126) U/L Total Protein 3.6 L (6.3-8.2) g/dL Albumin 1.6 L (3.5-5.0) g/dL 12/15/21 Range/Units 06:42 Neutrophils # (1.3-7.7) k/uL Lymphocytes # (1.0-4.8) k/uL Monocytes # (0-1.0) k/uL APTT 50.6 H (22.0-30.0) sec Potassium (3.5-5.1) mmol/L Chloride (98-107) mmol/L BUN (9-20) mg/dL Creatinine (0.66-1.25) mg/dL Glucose (74-99) mg/dL POC Glucose (mg/dL) (75-99) mg/dL Calcium (8.4-10.2) mg/dL ALT (4-49) U/L Alkaline Phosphatase (38-126) U/L Total Protein (6.3-8.2) g/dL Albumin (3.5-5.0) g/dL Microbiology - Last 24 Hours (Table) 12/08/21 16:46 Blood Culture - Final Blood No Growth after 144 hours
--- NOTE | 2021-12-15 10:13 | P.PN ---
Subjective Progress Note Date: 12/15/21 80-year-old male who was initially seen in the emergency department, on 12/08/2021, for nausea and vomiting. For a week or so prior to admission, the patient admits to ongoing nausea and vomiting. He apparently told the ER physician that anything he eats, he vomits. He was not able to take his usual m edications. The patient was recently diagnosed with an obstructive kidney stone, and was scheduled for a ureteral stent. He apparently denied fever when he was in the emergency department. He does have some minimal stool output from his colostomy. He denied any abdominal pain. We are asked to see him today, after his been in the hospital since December 08. Apparently he was found to have hypotension, and wasn't looking very good, and we decided to move him to the intensive care unit for further monitoring and management. 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 Also, on December 09, the patient underwent an exploratory laparotomy, extensive lysis of adhesions, and repair of parastomal hernia. The patient also had a small bowel resection. This was done because of bowel obstruction. Urine sampling from December 08 revealed evidence of pseudomonas aeruginosa. White count 22.68, hemoglobin 10.9, hematocrit 33.7, and platelet count 219,000. Sodium 141, potassium 3.8, chlorides 111, CO2 14, anion gap 17, BUN 38, and creatinine 1.8. AST was 387, and ALT was 467. Those are both increasing. Also, urine sampling from December 18 revealed what appears to be a urinary tract infection. Chest x-ray back from December 08 did not show anything acute. Cardiology saw the patient in consultation and ordered amiodarone, lidocaine, and Lopressor. EKG done on 5 N., revealed a wide-complex tachycardia, and a new bundle branch. history significant for CAD and prior stenting of the RCA and LAD as well as ischemic cardiomyopathy and status post AICD and also status post VT ablation in 202012/13/2021, the patient is in the intensive care unit. His current cardiac rhythm is sinus. He is having runs of episodic atrial fibrillation. There is still having episodes of nonsustained ventricular tachycardia. The patient was seen by cardiology. He remains on amiodarone drip which is running at 0.5 mcg/kg per minute and the patient remains on IV heparin. This morning, cardiology evaluated the patient and put him on a beta christelle and the patient is currently on Toprol-XL 25 mg twice a day and the patient was also started on Mexitil at a dose of 150 milligrams by mouth twice a day. The patient's blood pressure currently is at 124/75. He is on no pressors. He is receiving lactated Ringer at the rate of 20 mL an hour. He is free of any chest pain. His blood work shows a BUN of 57 with a creatinine of 1.8 and the creatinine is at 3.8 and the sodium level is at 140. Normal potassium of 3.8. Lactic acid level was down to 1.8. Troponins were 0.04 and 0.03 respectively 2. His pro- calcitonin level was 1.1. Note that his white cell count is at 38 which is comparable to yesterday and the patient also has a hemoglobin of 13.8 and a platelet count of 190. As mentioned, he had a pseudomonal urinary tract infection. The patient will remains on IV Zosyn. Echo was obtained this morning and the results are still pending for now. His liver function tests were also abnormal. His AST of 157 and ALT of 313 and an alkaline phosphatase of 309. His bilirubin is currently at 1.9. Ultrasound of the liver that was obtained on 12/11/2021 showed limitation due to his body habitus and bowel gas pattern. There was cholelithiasis with distention of the gallbladder possibly indicating an acute cholecystitis. There was still evidence of hydronephrosis of the right kidney stone measuring 1.5 cm in the right kidney was mildly hydro nephrotic. His original CAT scan of the abdomen and pelvis that was on 12/08/2021 showed high-grade mechanical small bowel obstruction with transition point in the left lower quadrant in addition to a parastomal hernia. There was also significant wall thickening of the colon just proximal to the colostomy and surrounding area of an acute inflammatory change with her underlying colitis/diverticulitis not being completely excluded. There was also left distal ureteral obstruction with stone and moderate degree of left-sided hydroureter and hydronephrosis. He has NGT and the output was 400 cc over 12 hour 12/14 2021, the patient is being seen in the intensive care unit. This morning, the patient is in a normal sinus rhythm. He did not have any wide-complex tachycardic events overnight. He is currently on a combination of Toprol-XL 25 mg twice a day, Mexitil 150 mg by mouth twice a day and the patient is starting on by mouth amiodarone coming off the amiodarone drip. I was quite concerned about his abdominal situation yesterday and there was a concern of a acute cholecystitis based on the ultrasound findings. There was also concern about ongoing mechanical obstruction as the colostomy stoma looked pale. Based on that, CAT scan of the abdomen was obtained yesterday and the results were discussed with the general surgeon. In summary, a detailed description of the abdominal findings was given in the CAT scan. Based on my understanding with the surgeons evaluation, the patient still has an area of a parastomal hernia which is fat filled and there is some ongoing ileus, unsure of there is any ongoing mechanical obstruction of the small bowel. There is an expected outcome following surgery. NG tube was in place and the patient had a moderate size hiatal hernia. There was contrast backing up into the esophagus. At the same time, there was a foci of air in the right upper quadrant which could be potentially postsurgical in nature. As such, there was no indication for any acute abdomen. There was generalized anasarca and moderate degree of abdominal and pelvic ascites. There was also a small and new bilateral pleural effusion more so on the right compared to the left lung with some adjacent atelectasis and some areas of patchy groundglass pulmonary infiltrates in lung bases and interval placement of a left ureteral stent and this was done by urology for obstructive uropathy. Gallbladder itself was hydropic with cholelithiasis. There was some possible surrounding inflammation versus changes related to anasarca. Nevertheless, on examination, the patient does not have any significant tenderness in the right upper quadrant. In terms of his LFTs, the patient's ALT is 54 and the AST is 127 and the alkaline phosphatase is 181. His current bilirubin is at 1.6. Note that his LFTs have been improving consistently. His creatinine is down to 1.6 with a BUN of 55 and his sodium level is at 136. White cell count is lower down to 33 with a hemoglobin of 10.7 and platelet count of 173. The patient remains on antibiotics with IV Zosyn. On reevaluation of the stoma, the stoma itself looks pale and there is no output in the colostomy bag. NG tube is in place and output has been in the order of 300 mL overnight. The patient remains in IV heparin for now. 13 2021, I'm happy to see that the patient is hemodynamically stable. No episodes of ventricular tachycardia overnight. The patient remains on Toprol-XL 25 mg, Mexitil 150 mg by mouth twice a day and he is also on oral amiodarone at a dose of 400 mg twice a day. His current cardiac rhythm is sinus. He is hemodynamically stable. He remains on IV heparin drip. Meanwhile, the patient is on TPN for nutritional support. I'm pleased to see that the patient has gas and positive stool output is colostomy bag. This was noted yesterday. The average output is minimal at this point in time. The patient was offered some clear liquid diet yesterday which he was able to tolerate. No nausea. No emesis. No abdominal pain or distention. No pain in his right quadrant of his abdomen knowing that the patient has a hydropic gallbladder and cholelithiasis. He remains on IV Zosyn regarding a pseudomonal UTI and intra-abdominal coverage following is abdominal surgery. At the same time, the patient's white cell count is still elevated from yesterday and repeat white cell count is pending from today. His white cell count from yesterday was 33. The patient's electrolytes are showing a potassium of 3.0 to be replaced. Creatinine is stable at 1.6 and a BUN of 55. His liver function tests were improving and they're essentially still improving with a AST of 88, ALT of 160, bilirubin is at 1.1. His total protein is at 3.6 with an albumin level of 1.6. Triglyceride levels are 109. Overall fluid balance over the past 24 hours is been +2.4 L. His current IV fluids are 0.9 at 75 and this is to be cut down to KVO. He is on TPN which is running at the rate of 30 mL an hour. He is arousable. He is awake and alert. Follows commands. Overall, quite weak and debilitated. Objective - Vital Signs Vital signs: Vital Signs Temp 97.8 F 12/15/21 09:00 Pulse 62 12/15/21 09:00 Resp 27 H 12/15/21 09:00 BP 100/59 12/15/21 09:00 Pulse Ox 95 12/15/21 09:00 Intake & Output 12/14/21 12/15/21 12/15/21 18:59 06:59 18:59 Intake Total 1116.68 1835 220 Output Total 843 2430 125 Balance 273.68 -595 95 Weight 90 kg 90.7 kg Intake: IV 966.68 975 150 Amiodarone 0.5mg 66.68 Dextrose 5% in Water 1, 375 000 ml @ 75 mls/hr IV . [id number] [facility] with Sodium Bicarb (1 Meq/ml) 150 ml Rx#:[id number] Sodium Chloride 0.9% 1, 525 975 150 000 ml @ 75 mls/hr IV . [id number] [facility] Rx#:[id number] Intake, IV Titration 360 70 Amount Mvi, Adult No.4 with Vit 360 70 K 10 ml Trace (Conc-1Ml/ Dose) 1 ml In Amino Acid 5%-D20w+Lytes*E* 1,000 ml @ 30 mls/hr IV .Q24H [facility] Rx#:[id number] Oral 150 500 Output: Gastric Drainage 300 1500 Urine 543 680 125 Stool 250 Other: Voiding Method Indwelling Catheter Indwelling Catheter - Exam No acute distress, oriented, the patient is pale, and looks chronically ill. Currently on 2 L of oxygen by nasal cannula. NG tube is also in place. Head exam was generally normal. There was no scleral icterus or corneal arcus. Mucous membranes were moist. HEENT examination is grossly unremarkable. NG tube is noted. Neck supple. Full range of motion. No adenopathy thyromegaly or neck vein distention. Cardiovascular examination reveals regular rhythm rate. S1-S2 normal. No S3 or S4. No discernible murmur noted The patient has a pacemaker pocket over the left anterior chest area/AICD pocket. Lungs reveal scattered mild rhonchi. No wheezes or crackles. Breath sounds equal. Saturations 94% on 2 L. Abdomen soft without bowel sounds. A dressing is noted over the recent exploratory laparotomy. There is a colostomy in the left lower quadrant. The colostomy site is quite pale and nonfunctional this point in time. There is no output in the colostomy bag. No direct tenderness in the right upper quadrant. No rebound tenderness no guarding. Surgical wound site is dry clean and intact. Bowel sounds are extensively hypoactive. The abdominal exam is essentially unchanged compared to yesterday. Extremities are intact. No cyanosis clubbing or edema. Skin is without rash or lesion. The patient has a DTI on his coccyx. Neurologic examination is brief but nonfocal. - Labs CBC & Chem 7: 12/14/21 07:28 12/15/21 06:42 Labs: Abnormal Lab Results - Last 24 Hours (Table) 12/14/21 12/14/21 12/14/21 Range/Units 07:28 11:56 17:38 Neutrophils # 31.1 H (1.3-7.7) k/uL Lymphocytes # 0.6 L (1.0-4.8) k/uL Monocytes # 1.1 H (0-1.0) k/uL APTT (22.0-30.0) sec Potassium (3.5-5.1) mmol/L Chloride (98-107) mmol/L BUN (9-20) mg/dL Creatinine (0.66-1.25) mg/dL Glucose (74-99) mg/dL POC Glucose (mg/dL) 138 H 122 H (75-99) mg/dL Calcium (8.4-10.2) mg/dL ALT (4-49) U/L Alkaline Phosphatase (38-126) U/L Total Protein (6.3-8.2) g/dL Albumin (3.5-5.0) g/dL 12/15/21 12/15/21 12/15/21 Range/Units 00:00 05:54 06:42 Neutrophils # (1.3-7.7) k/uL Lymphocytes # (1.0-4.8) k/uL Monocytes # (0-1.0) k/uL APTT (22.0-30.0) sec Potassium 3.3 L (3.5-5.1) mmol/L Chloride 113 H (98-107) mmol/L BUN 55 H (9-20) mg/dL Creatinine 1.63 H (0.66-1.25) mg/dL Glucose 127 H (74-99) mg/dL POC Glucose (mg/dL) 169 H 138 H (75-99) mg/dL Calcium 6.8 L (8.4-10.2) mg/dL ALT 88 H (4-49) U/L Alkaline Phosphatase 160 H (38-126) U/L Total Protein 3.6 L (6.3-8.2) g/dL Albumin 1.6 L (3.5-5.0) g/dL 12/15/21 Range/Units 06:42 Neutrophils # (1.3-7.7) k/uL Lymphocytes # (1.0-4.8) k/uL Monocytes # (0-1.0) k/uL APTT 50.6 H (22.0-30.0) sec Potassium (3.5-5.1) mmol/L Chloride (98-107) mmol/L BUN (9-20) mg/dL Creatinine (0.66-1.25) mg/dL Glucose (74-99) mg/dL POC Glucose (mg/dL) (75-99) mg/dL Calcium (8.4-10.2) mg/dL ALT (4-49) U/L Alkaline Phosphatase (38-126) U/L Total Protein (6.3-8.2) g/dL Albumin (3.5-5.0) g/dL Microbiology - Last 24 Hours (Table) 12/08/21 16:46 Blood Culture - Final Blood No Growth after 144 hours Assessment and Plan Plan: 1 Status post exploratory laparotomy, lysis of adhesions, repair of parastomal hernia, small bowel resection, 12/09/2021. There may be also a component of diverticulitis/ischemic bowel adjacent to the hernia. The patient underwent expiratory laparotomy. The patient is currently nothing by mouth. NG tube is in place. The patient is currently on antibiotics and the patient is currently on IV Zosyn. The patient is currently postop day #6. Repeat CAT scan of the abdomen was noted and there is hydropic gallbladder along with cholelithiasis, LFTs are improving and at the same time the patient continues to have ileus, ventral hernia, and the stoma itself is pale and nonfunctional at this point in time. The patient shows adequate output in his colostomy bag. His colostomy is functional. NG tube output is minimal at this point in time. Remains on TPN for nutritional support. Afebrile hemodynamically stable on no pressors. Rosalinda iting a follow-up white cell count. 2 Pseudomonas aeruginosa urinary tract infection, and likely sepsis. Status post left ureteral stent, for hydronephrosis and renal calculi, 12/09/2021. The patient has some indication for some mild right-sided hydronephrosis and this will be further discussed with urology. He remains on IV Zosyn 3 Wide-complex tachycardia, new since admission.She is known to have ischemic cardiomyopathy with previous history of coronary artery disease and V. tach and the patient has undergone previous VT ablation currently has an AICD in place. The patient is currently on combination of amiodarone, Mexitil and Toprol-XL. Noted the patient had a internal rotation of the AICD yesterday and he was having apparently episodes of nonsustained VT. He did not receive any shock. The amiodarone has been switched to oral 400 mg twice a day. 4 transaminitis, which may relate to underlying cholecystitis. Consider acute cholecystitis. General surgeries on the case. The CAT scan of the abdomen shows hydropic gallbladder with cholelithiasis. LFTs are improving on today's evaluation the patient does not have any right upper quadrant tenderness. No LFTs continued to improve with 5 Anion gap metabolic acidosis, likely related to underlying sepsis. The serum bicarb is up to 22 6 acute kidney injury, on top of chronic kidney disease. The patient has likely an underlying chronic stage III kidney disease. 7 acute leukocytosis 8 History of CAD, status post heart catheterization with stent placement. 9 history of nonsustained VT, post VT ablation and the patient has a History of AICD placement. 10 History of sleep apnea syndrome. 11 History of hyperlipidemia. 12 History of hypertension. 13 History of colon cancer, status post colectomy with colostomy. 14 History of deep venous thrombosis. 15 paroxysmal atrial fibrillation, currently on IV heparin Plan: IV to KVO echocardiogram was done today, results are still pending Continue IV Zosyn Monitor WBC count awaiting labs from today Patient is taking clear liquid diet. May be able to remove the NG tube and advance his diet slowly. The patient is taking oral medications for now. Medication adjustments done regarding ventricle tachycardia was noted and the patient is currently on Toprol-XL, Mexitil and amiodarone PO Monitor LFTs Incentive spirometer Monitor colostomy output Monitor renal function and white count Continue IV heparin, and we should be able to switch this patient oral anticoagulants once cleared is obtained from surgery Very critical condition. We'll continue to follow make further recommendations based on his progress.
[2021-12-15] MEDS ORDERED: ACETAMINOPHEN TAB 325 MG TAB PO PRN (10:16)
[2021-12-15] MEDS: NOREPINEPHRINE 4 MG in SODIUM CHLORIDE 0.9% 250 ML IV SCH (10:28)
[2021-12-15] MEDS: FAT EMULSION 20% 250 ML IV SCH (10:34)
[2021-12-15 11:01] LABS: Basophils % (A) 0 %; Eosinophils # (A) 0.2 k/uL (0-0.7); Eosinophils % (A) 1 %; HCT 28.6 % (39.0-53.0); Hypochromasia Moderate; Lymphocytes # (A) 0.6 k/uL (1.0-4.8); Lymphocytes % (A) 2 %; MCH 31.7 pg (25.0-35.0); MCHC 31.5 g/dL (31.0-37.0); MCV 100.7 fL (80.0-100.0); Macrocytosis Slight; Mean Platelet Volume 9.8; Monocytes # (A) 1.1 k/uL (0-1.0); Monocytes % (A) 4 %; Neutrophils # (A) 23.9 k/uL (1.3-7.7); Neutrophils % (A) 92 %; Platelet Count 148 k/uL (150-450); RBC 2.84 m/uL (4.30-5.90); RDW 14.4 % (11.5-15.5); WBC 25.9 k/uL (3.8-10.6)
--- NOTE | 2021-12-15 11:02 | ECHOF ---
Referral Reason:vt MEASUREMENTS -------- HEIGHT: 167.6 cm WEIGHT: 90.3 kg BP: Ao Diam: 3.4 cm (2.0 - 3.7) LA Diam: 2.7 cm (2.7 - 3.8) AV Cusp: 1.5 cm (1.5 - 2.6) EPSS: 1.8 cm MV E Bobby: 0.82 m/s MV DecT: 149 ms MV Dec Hanson: 5.5 m/s MV A Bobby: 0.43 m/s MV E/A Ratio: 1.91 MV PHT: 43 ms MR Vmax: 1.10 m/s MR maxP.86 mmHg AV Vmax: 1.40 m/s AV maxP.89 mmHg TR Vmax: 1.78 m/s TR maxP.61 mmHg RAP: 5.00 mmHg RVSP: 17.61 mmHg MV EF SLOPE: 21.52 mm/s (70 - 150) MV EXCURSION: 11.80 mm (> 18.000) FINDINGS -------- This was a technically difficult study with suboptimal views. This was a techncally difficult study with suboptimal views, , Definity utilized for enhancement of images. Suboptimal test with Lumason. Unable to calculate EF. The RV was not well visualized. The left atrium was not well visualized. The right atrium was not well visualized. Lumason used The aortic valve was not well visualized. The mitral valve was not well visualized. The tricuspid valve was not well visualized. The pulmonic valve was not well visualized. CONCLUSIONS -------- 1. This was a techncally difficult study with suboptimal views, , Definity utilized for enhancement o f images. 2. Suboptimal test with Lumason. Unable to calculate EF. 3. Lumason used CARDIOGRAPH OPERATOR: Carolee Colvin [facility]
[2021-12-15] MEDS: SODIUM CHLORIDE 0.9% 1,000 ML IV SCH (12:00)
[2021-12-15 12:06] LABS: Glucose,Whole Blood 154 mg/dL (75-99)
--- NOTE | 2021-12-15 12:23 | CDI ---
Documentation Clarification Form Date: 12/15/2021 11:56:59 AM From: Lakisha Velásquez RN, CCDS Admit Date: 12/08/2021 11:53:00 AM Patient Name: Ministerio Mcdaniels Visit Number: [id number] Discharge Date: ATTENTION: The Clinical Documentation Specialists (CDI) and [facility] Coding Staff appreciate your assistance in clarifying documentation. Please respond to the clarification below the line at the bottom and electronically sign. The CDI & [facility] Coding staff will review the response and follow-up if needed. Please note: Queries are made part of the Legal Health Record. If you have any questions, please contact the author of this message via ITS. Dr. Juan Arvizu Ileus is documented in your progress notes starting on 12/11/21 and patient had small bowel resection, repair of parastomal hernia, lysis of extensive adhesions on 12/09/21 Additional clarification is requested regarding the relationship, if any, that exists between the diagnosis and the procedure. Patients Diagnosis: Small bowel obstruction Post-Operative Diagnosis: Small bowel obstruction, Peristomal hernia, Adhesions Procedure performed: Exploratory laparotomy, Lysis of extensive adhesions. Repair of parastomal hernia, Small bowel resection History/Risk Factors: Coronary Artery Disease, Colon Cancer/Colostomy, Bowel Resection, COPD DVT, Hypertension Clinical Indicators: 80-year-old male with abdominal pain fount small bowel obstruction secondary to incarcerated parastomal hernia. Abdomen: soft, mild distention, mild tenderness ostomy without significant function 12/11 Vital sign: 109/7096 20 97.4 12/11 Labs: DWBC 22.6, HGB 10.9, HCT 33.3, BUN 38.3, CR 1.8 Treatment: Telemetry/ICU Monitoring NGT LIS, Monitor output Lactated Ringers 500 ml IV Bolus per replacement protocol What relationship, if any, exists between the diagnosis of ileus] and the procedure: [ ] Ileus is a complication of surgical procedure [ X ] Ileus is an expected outcome of the surgical procedure [ ] Ileus is related to patients co-morbid condition(s) of [insert co-morbid dxs] & not a complication of the procedure [ ] Ileus has been ruled out [ ] Other please specify ____ [ ] Unable to determine (Template Last Revised: November 2020) MTDD
--- NOTE | 2021-12-15 13:42 | P.PN ---
Subjective Progress Note Date: 12/15/21 CHIEF COMPLAINT: Small bowel ejection HISTORY OF PRESENT ILLNESS: Patient is postop day #6 status post exploratory laparotomy, lysis of extensive adhesions, repair of parastomal hernia and small bowel resection for small bowel obstruction due to parastomal hernia and adhesions. Patient is lying in bed comfortably. Reports minimal abdominal pain. Denies any right upper quadrant abdominal pain. His ostomy is functioning. There is some blood noted in with the brown stool. Denies any nausea. NG tube with bilateral output mixed with fluids from his ice chips. Afebrile. WBC trending down from 33.1-25.9 hemoglobin history up from 10.7-9.0 platelets 148 sodium 139 potassium 3.3 creatinine 1.63 LFTs trending down albumin 1.6 PHYSICAL EXAM: VITAL SIGNS: Reviewed. GENERAL: Well-developed in no acute distress. HEENT: No sclera icterus. Extraocular movements grossly intact. Moist buccal mucosa. Head is atraumatic, normocephalic. ABDOMEN: Soft. Nondistended. Minimal tenderness noted at incision site. Incision site clean dry and intact. Ostomy functioning with stool and air. There is also blood noted in ostomy bag. NEUROLOGIC: awake and alert ASSESSMENT: 1. 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 Left hydronephrosis secondary to left ureteral stricture status post cystoscopy with left ureteroscopy balloon dilatation of the left distal ureteral stricture and left ureteral stent insertion by Dr. Cool 3. Sustained ventricle tachycardia 4. Hypokalemia 5. Distended gallbladder with cholelithiasis 6. Possible postoperative ileus 7. Leukocytosis 10. GI bleeding with blood noted in stool in ostomy bag 11. Severe protein calorie malnutrition PLAN: -Continue ICU management -Continue supportive care -Continue antibiotics -Discontinue NG tube -NPO except for ice chips and popsicles -Continue to monitor hemoglobin -Oral Tylenol added for pain medication -Potassium being replaced -Encourage incentive spirometer use -Continue TPN for nutrition support -Currently on IV heparin for anticoagulation. continue to hold Eliquis Physician [employer] note has been reviewed by physician. Signing provider agrees with the documented findings, assessment, and plan of care. Objective - Vital Signs Vital signs: Vital Signs Temp 97.9 F 12/15/21 12:00 Pulse 68 12/15/21 12:00 Resp 29 H 12/15/21 12:00 BP 108/54 12/15/21 12:00 Pulse Ox 94 L 12/15/21 12:00 Intake & Output 12/14/21 12/15/21 12/15/21 18:59 06:59 18:59 Intake Total 1116.68 1835 657 Output Total 843 2430 345 Balance 273.68 -595 312 Weight 90 kg 90.7 kg Intake: IV 966.68 975 307 Amiodarone 0.5mg 66.68 Dextrose 5% in Water 1, 375 000 ml @ 75 mls/hr IV . Q29W55H [facility] with Sodium Bicarb (1 Meq/ml) 150 ml Rx#:[id number] Fat Emulsion 20% 250 ml @ 42 20.833 mls/hr IV We [facility] Rx#:[id number] Sodium Chloride 0.9% 1, 525 975 265 000 ml @ 20 mls/hr IV . Q24H [facility] Rx#:[id number] Intake, IV Titration 360 350 Amount Mvi, Adult No.4 with Vit 360 150 K 10 ml Trace (Conc-1Ml/ Dose) 1 ml In Amino Acid 5%-D20w+Lytes*E* 1,000 ml @ 30 mls/hr IV .Q24H [facility] Rx#:[id number] Potassium Chloride 20 meq 200 In Water For Injection 1 100ml.bag @ 50 mls/hr IVPB Q2H [facility] Rx#: [id number] Oral 150 500 Output: Gastric Drainage 300 1500 Urine 543 680 345 Stool 250 Other: Voiding Method Indwelling Catheter Indwelling Catheter - Labs CBC & Chem 7: 12/15/21 06:42 12/15/21 06:42 Labs: Abnormal Lab Results - Last 24 Hours (Table) 12/14/21 12/15/21 12/15/21 Range/Units 17:38 00:00 05:54 WBC (3.8-10.6) k/uL RBC (4.30-5.90) m/uL Hgb (13.0-17.5) gm/dL Hct (39.0-53.0) % MCV (80.0-100.0) fL Plt Count (150-450) k/uL Neutrophils # (1.3-7.7) k/uL Lymphocytes # (1.0-4.8) k/uL Monocytes # (0-1.0) k/uL APTT (22.0-30.0) sec Potassium (3.5-5.1) mmol/L Chloride (98-107) mmol/L BUN (9-20) mg/dL Creatinine (0.66-1.25) mg/dL Glucose (74-99) mg/dL POC Glucose (mg/dL) 122 H 169 H 138 H (75-99) mg/dL Calcium (8.4-10.2) mg/dL ALT (4-49) U/L Alkaline Phosphatase (38-126) U/L Total Protein (6.3-8.2) g/dL Albumin (3.5-5.0) g/dL 12/15/21 12/15/21 12/15/21 Range/Units 06:42 06:42 06:42 WBC 25.9 H (3.8-10.6) k/uL RBC 2.84 L (4.30-5.90) m/uL Hgb 9.0 L D (13.0-17.5) gm/dL Hct 28.6 L (39.0-53.0) % MCV 100.7 H (80.0-100.0) fL Plt Count 148 L (150-450) k/uL Neutrophils # 23.9 H (1.3-7.7) k/uL Lymphocytes # 0.6 L (1.0-4.8) k/uL Monocytes # 1.1 H (0-1.0) k/uL APTT 50.6 H (22.0-30.0) sec Potassium 3.3 L (3.5-5.1) mmol/L Chloride 113 H (98-107) mmol/L BUN 55 H (9-20) mg/dL Creatinine 1.63 H (0.66-1.25) mg/dL Glucose 127 H (74-99) mg/dL POC Glucose (mg/dL) (75-99) mg/dL Calcium 6.8 L (8.4-10.2) mg/dL ALT 88 H (4-49) U/L Alkaline Phosphatase 160 H (38-126) U/L Total Protein 3.6 L (6.3-8.2) g/dL Albumin 1.6 L (3.5-5.0) g/dL 12/15/21 Range/Units 12:04 WBC (3.8-10.6) k/uL RBC (4.30-5.90) m/uL Hgb (13.0-17.5) gm/dL Hct (39.0-53.0) % MCV (80.0-100.0) fL Plt Count (150-450) k/uL Neutrophils # (1.3-7.7) k/uL Lymphocytes # (1.0-4.8) k/uL Monocytes # (0-1.0) k/uL APTT (22.0-30.0) sec Potassium (3.5-5.1) mmol/L Chloride (98-107) mmol/L BUN (9-20) mg/dL Creatinine (0.66-1.25) mg/dL Glucose (74-99) mg/dL POC Glucose (mg/dL) 154 H (75-99) mg/dL Calcium (8.4-10.2) mg/dL ALT (4-49) U/L Alkaline Phosphatase (38-126) U/L Total Protein (6.3-8.2) g/dL Albumin (3.5-5.0) g/dL Microbiology - Last 24 Hours (Table) 12/08/21 16:46 Blood Culture - Final Blood No Growth after 144 hours
[2021-12-15 18:26] LABS: Glucose,Whole Blood 167 mg/dL (75-99)
[2021-12-15] MEDS ORDERED: 1: MVI, ADULT NO.4 WITH VIT K 10 ML, TRACE (CONC-1ML/DOSE) 1 ML in AMINO ACID 5%-D20W+LY IV SCH ×3 (18:30)
[2021-12-15 20:13] LABS: Basophils % (A) 0 %; Eosinophils # (A) 0.3 k/uL (0-0.7); Eosinophils % (A) 1 %; HCT 26.2 % (39.0-53.0); HGB 8.4 gm/dL (13.0-17.5); Hypochromasia Slight; Lymphocytes # (A) 0.5 k/uL (1.0-4.8); Lymphocytes % (A) 2 %; MCH 31.7 pg (25.0-35.0); MCHC 32.1 g/dL (31.0-37.0); MCV 98.8 fL (80.0-100.0); Mean Platelet Volume 9.2; Monocytes # (A) 0.6 k/uL (0-1.0); Monocytes % (A) 2 %; Neutrophils # (A) 21.9 k/uL (1.3-7.7); Neutrophils % (A) 94 %; Platelet Count 147 k/uL (150-450); RBC 2.65 m/uL (4.30-5.90); RDW 14.7 % (11.5-15.5); WBC 23.4 k/uL (3.8-10.6)
[2021-12-15] MEDS: ATORVASTATIN 40 MG TAB PO SCH (20:51)
[2021-12-15] MEDS: TAMSULOSIN 0.4 MG CAP.ER.24H PO SCH (20:52)
[2021-12-15] MEDS: [UNRECOGNIZED DRUG - OTHER] IV SCH ×7 (23:10)
[2021-12-15] MEDS: SODIUM PHOSPHATE IV SCH ×7 (23:10)
[2021-12-15] MEDS: POTASSIUM ACETATE IV SCH ×7 (23:10)
[2021-12-15] MEDS: MAGNESIUM SULFATE IV SCH ×7 (23:10)
[2021-12-15 23:19] LABS: Glucose,Whole Blood 144 mg/dL (75-99)
[2021-12-16] MEDS: NOREPINEPHRINE 4 MG in SODIUM CHLORIDE 0.9% 250 ML IV SCH ×2 (00:52→19:28)
[2021-12-16 03:21] LABS: Basophils % (A) 0 %; Eosinophils # (A) 0.2 k/uL (0-0.7); Eosinophils % (A) 1 %; HCT 28.7 % (39.0-53.0); HGB 9.4 gm/dL (13.0-17.5); Hypochromasia Slight; Lymphocytes # (A) 0.5 k/uL (1.0-4.8); Lymphocytes % (A) 2 %; MCH 31.9 pg (25.0-35.0); MCHC 32.8 g/dL (31.0-37.0); MCV 97.1 fL (80.0-100.0); Mean Platelet Volume 10.3; Monocytes # (A) 0.8 k/uL (0-1.0); Monocytes % (A) 3 %; Neutrophils # (A) 23.7 k/uL (1.3-7.7); Neutrophils % (A) 94 %; Platelet Count 145 k/uL (150-450); RBC 2.96 m/uL (4.30-5.90); RDW 15.5 % (11.5-15.5); WBC 25.3 k/uL (3.8-10.6)
[2021-12-16 03:34] LABS: Albumin 1.5 g/dL (3.5-5.0); Calcium 6.7 mg/dL (8.4-10.2); Magnesium 2.2 mg/dL (1.6-2.3); Phosphorus 2.6 mg/dL (2.5-4.5); Potassium 3.7 mmol/L (3.5-5.1); Total Protein 3.3 g/dL (6.3-8.2)
[2021-12-16] MEDS ORDERED: POTASSIUM CHLORIDE 20 MEQ in WATER FOR INJECTION 1 100ML.BAG IVPB ONE (03:45)
[2021-12-16 05:55] LABS: Glucose,Whole Blood 229 mg/dL (75-99)
[2021-12-16] MEDS: INSULIN ASPART (NovoLOG) 100 UNIT/ML VIAL SQ SCH ×4 (06:03→18:14)
--- NOTE | 2021-12-16 08:47 | P.PN ---
Subjective Progress Note Date: 12/16/21 Principal diagnosis: Ventricular tachycardia The patient is an 80-year-old gentleman with a past medical history significant for CAD and prior stenting of the RCA and LAD as well as ischemic cardiomyopathy and status post AICD and also status post VT ablation in 2020 as well as hypertension and dyslipidemia was admitted to the hospital with abdominal discomfort and underwent exploratory laparotomy with lysis of adhesion and repair of parastomal hernia and small bowel resection. The patient was transferred to the intensive care unit yesterday because he did have an episode of wide complex tachycardia to me looks like ventricular tachycardia. He was started on amiodarone IV. The patient was seen this morning. He continues to be tired/fatigue and also somewhat lethargic. Hemodynamically he is stable. Yesterday his pressure was on the low side and he is hemoglobin drop and for that reason he received one unit of packed RBC. Heparin is on hold at this point. Otherwise he continues to be on amiodarone by mouth and also he is on mexiletine and he no more episode s of ventricular tachycardia noted. Objective - Vital Signs Vital signs: Vital Signs Temp 98 F 12/16/21 04:00 Pulse 71 12/16/21 07:00 Resp 26 H 12/16/21 07:00 BP 106/56 12/16/21 07:00 Pulse Ox 95 12/16/21 07:00 Intake & Output 12/15/21 12/16/21 12/16/21 18:59 06:59 18:59 Intake Total 1323 1214 75 Output Total 550 830 60 Balance 773 384 15 Weight 92.5 kg Intake: IV 513 854 75 Fat Emulsion 20% 250 ml @ 168 84 20.833 mls/hr IV We [facility] Rx#:[id number] Sodium Chloride 0.9% 1, 345 170 000 ml @ 20 mls/hr IV . Q24H [facility] Rx#:[id number] Sodium Phosphate 15 mmol 600 75 Potassium Acetate 40 meq Magnesium Sulfate Syg 4. 06 meq Calcium Gluconate 1 gm In Amino Acids 5 %/ Dextrose 20 % 1,000 ml @ 75 mls/hr IV .BY DURATION [facility] Rx#:[id number] Intake, IV Titration 810 50 Amount Heparin Sod,Pork in 0.45% 250 NaCl 25,000 unit In 0.45 % NaCl 1 250ml.bag @ 12 UNITS/KG/HR 9.308 mls/hr IV .Q24H [facility] Rx#: [id number] Mvi, Adult No.4 with Vit 180 K 10 ml Trace (Conc-1Ml/ Dose) 1 ml In Amino Acid 5%-D20w+Lytes*E* 1,000 ml @ 30 mls/hr IV .Q24H [facility] Rx#:[id number] Potassium Chloride 20 meq 200 In Water For Injection 1 100ml.bag @ 50 mls/hr IVPB Q2H [facility] Rx#: [id number] Sodium Phosphate 15 mmol 180 50 Potassium Acetate 40 meq Magnesium Sulfate Syg 4. 06 meq Calcium Gluconate 1 gm In Amino Acids 5 %/ Dextrose 20 % 1,000 ml @ 75 mls/hr IV .BY DURATION [facility] Rx#:[id number] Blood Product 310 Rc As-1 Unit 310 [id number] Output: Urine 550 630 60 Stool 200 Other: Voiding Method Indwelling Catheter Indwelling Catheter - Constitutional General appearance: Present: no acute distress - Respiratory Respiratory: bilateral: diminished - Cardiovascular Rhythm: regular Heart sounds: normal: S1, S2 - Labs CBC & Chem 7: 12/16/21 03:10 12/16/21 03:10 Labs: Abnormal Lab Results - Last 24 Hours (Table) 12/15/21 12/15/21 12/15/21 Range/Units 06:42 12:04 17:24 WBC 25.9 H (3.8-10.6) k/uL RBC 2.84 L (4.30-5.90) m/uL Hgb 9.0 L D (13.0-17.5) gm/dL Hct 28.6 L (39.0-53.0) % MCV 100.7 H (80.0-100.0) fL Plt Count 148 L (150-450) k/uL Neutrophils # 23.9 H (1.3-7.7) k/uL Lymphocytes # 0.6 L (1.0-4.8) k/uL Monocytes # 1.1 H (0-1.0) k/uL Sodium (137-145) mmol/L Chloride (98-107) mmol/L BUN (9-20) mg/dL Creatinine (0.66-1.25) mg/dL Glucose (74-99) mg/dL POC Glucose (mg/dL) 154 H (75-99) mg/dL Calcium (8.4-10.2) mg/dL ALT (4-49) U/L Alkaline Phosphatase (38-126) U/L Total Protein (6.3-8.2) g/dL Albumin (3.5-5.0) g/dL Crossmatch See Detail 12/15/21 12/15/21 12/15/21 Range/Units 18:25 20:01 23:18 WBC 23.4 H (3.8-10.6) k/uL RBC 2.65 L (4.30-5.90) m/uL Hgb 8.4 L (13.0-17.5) gm/dL Hct 26.2 L (39.0-53.0) % MCV (80.0-100.0) fL Plt Count 147 L (150-450) k/uL Neutrophils # 21.9 H (1.3-7.7) k/uL Lymphocytes # 0.5 L (1.0-4.8) k/uL Monocytes # (0-1.0) k/uL Sodium (137-145) mmol/L Chloride (98-107) mmol/L BUN (9-20) mg/dL Creatinine (0.66-1.25) mg/dL Glucose (74-99) mg/dL POC Glucose (mg/dL) 167 H 144 H (75-99) mg/dL Calcium (8.4-10.2) mg/dL ALT (4-49) U/L Alkaline Phosphatase (38-126) U/L Total Protein (6.3-8.2) g/dL Albumin (3.5-5.0) g/dL Crossmatch 12/16/21 12/16/21 12/16/21 Range/Units 03:10 03:10 05:53 WBC 25.3 H (3.8-10.6) k/uL RBC 2.96 L (4.30-5.90) m/uL Hgb 9.4 L (13.0-17.5) gm/dL Hct 28.7 L (39.0-53.0) % MCV (80.0-100.0) fL Plt Count 145 L (150-450) k/uL Neutrophils # 23.7 H (1.3-7.7) k/uL Lymphocytes # 0.5 L (1.0-4.8) k/uL Monocytes # (0-1.0) k/uL Sodium 136 L (137-145) mmol/L Chloride 113 H (98-107) mmol/L BUN 47 H (9-20) mg/dL Creatinine 1.47 H (0.66-1.25) mg/dL Glucose 185 H (74-99) mg/dL POC Glucose (mg/dL) 229 H (75-99) mg/dL Calcium 6.7 L (8.4-10.2) mg/dL ALT 69 H (4-49) U/L Alkaline Phosphatase 161 H (38-126) U/L Total Protein 3.3 L (6.3-8.2) g/dL Albumin 1.5 L (3.5-5.0) g/dL Crossmatch Assessment and Plan Assessment: Assessment #1 status post exploratory laparotomy #2 sustained ventricular tachycardia #3 coronary artery disease #4 ischemic cardiomyopathy #5 status post VT ablation #Multiple comorbid conditions Plan #1 continue the current medical regimen #2 continue mexiletine and amiodarone are on #3 consider oral anticoagulation down the line #4 follow-up with the patient #5 monitor the hemoglobin
[2021-12-16] MEDS: PIPERACILLIN-TAZOBACTAM 3.375 GM in SODIUM CHLORIDE 0.9% 100 ML IVPB SCH ×3 (09:23)
[2021-12-16] MEDS: AMIODARONE 200 MG TAB PO SCH (09:23)
[2021-12-16] MEDS: SPIRONOLACTONE 25 MG TAB PO SCH (09:25)
[2021-12-16] MEDS: MEXILETINE 150 MG CAP PO SCH ×2 (09:25→20:07)
[2021-12-16] MEDS: FINASTERIDE 5 MG TAB PO SCH (09:25)
[2021-12-16] MEDS: FAMOTIDINE 20 MG/2 ML VIAL IV SCH (09:25)
--- NOTE | 2021-12-16 10:17 | P.PN ---
Subjective Progress Note Date: 12/16/21 Pt tolerating CLD. Has bloody stool output in ostomy, rec'd 1U PRBC, Hgb stable. UOP is good, ~60cc/hr. No arrhythmia overnight, on mexilitine, amiodarone, metoprolol. Gen: awake, alert HEENT: normocephalic, atraumatic, good hearing acuity, moist mucous membranes Resp: good air exchange, breathing comfortably with no accessory muscle use CVS: good distal perfusion x 4, GI: soft, NTTP, ND : no SPT, no CVAT, fuentes catheter is present MSK: no pitting edema, no clubbing Neuro: non-focal, moving all extremities Psych: cooperative, euthymic mood Assessment/plan: # sepsis secondary to urinary company urinary tract infection -pseudomonas # obstructive uropathy s/p L nephroureteral stent on 12/09 # small bowel obstruction can be secondary to underlying adhesions versus parastomal hernia s/p small bowel resection on 12/09 # sustained ventricular tachycardia # coronary disease status post stent 2 # hyperlipidemia # essential hypertension # CKD Plan: -Admit to medicine, telemetry -Aspiration/fall precaution/hob30 -Urine cultures reviewed showing Pseudomonas. Urine cultures positive crista ptible to Zosyn which we will continue to complete 5 days, completed 12/16 -Stent placed by urology needs outpatient follow-up as well. -CLD and TPN day 2, consideration of d/c'ing TPN and removal of NGT, defer to surgery -on oral amiodarone and mexilitine, metoprolol -off of pressors -rec'd 1U PRBC on 12/16 Objective - Vital Signs Vital signs: Vital Signs Temp 98.2 F 12/16/21 08:00 Pulse 72 12/16/21 09:00 Resp 26 H 12/16/21 09:00 BP 107/58 12/16/21 09:00 Pulse Ox 95 12/16/21 09:00 Intake & Output 12/15/21 12/16/21 12/16/21 18:59 06:59 18:59 Intake Total 1323 1214 245 Output Total 550 830 185 Balance 773 384 60 Weight 92.5 kg Intake: IV 513 854 245 Fat Emulsion 20% 250 ml @ 168 84 20.833 mls/hr IV We [facility] Rx#:[id number] Sodium Chloride 0.9% 1, 345 170 20 000 ml @ 20 mls/hr IV . Q24H [facility] Rx#:[id number] Sodium Phosphate 15 mmol 600 225 Potassium Acetate 40 meq Magnesium Sulfate Syg 4. 06 meq Calcium Gluconate 1 gm In Amino Acids 5 %/ Dextrose 20 % 1,000 ml @ 75 mls/hr IV .BY DURATION [facility] Rx#:[id number] Intake, IV Titration 810 50 Amount Heparin Sod,Pork in 0.45% 250 NaCl 25,000 unit In 0.45 % NaCl 1 250ml.bag @ 12 UNITS/KG/HR 9.308 mls/hr IV .Q24H [facility] Rx#: [id number] Mvi, Adult No.4 with Vit 180 K 10 ml Trace (Conc-1Ml/ Dose) 1 ml In Amino Acid 5%-D20w+Lytes*E* 1,000 ml @ 30 mls/hr IV .Q24H [facility] Rx#:[id number] Potassium Chloride 20 meq 200 In Water For Injection 1 100ml.bag @ 50 mls/hr IVPB Q2H [facility] Rx#: [id number] Sodium Phosphate 15 mmol 180 50 Potassium Acetate 40 meq Magnesium Sulfate Syg 4. 06 meq Calcium Gluconate 1 gm In Amino Acids 5 %/ Dextrose 20 % 1,000 ml @ 75 mls/hr IV .BY DURATION [facility] Rx#:[id number] Blood Product 310 Rc As-1 Unit 310 [id number] Output: Urine 550 630 185 Stool 200 Other: Voiding Method Indwelling Catheter Indwelling Catheter Indwelling Catheter - Labs CBC & Chem 7: 12/16/21 03:10 12/16/21 03:10 Labs: Abnormal Lab Results - Last 24 Hours (Table) 12/15/21 12/15/21 12/15/21 Range/Units 06:42 12:04 17:24 WBC 25.9 H (3.8-10.6) k/uL RBC 2.84 L (4.30-5.90) m/uL Hgb 9.0 L D (13.0-17.5) gm/dL Hct 28.6 L (39.0-53.0) % MCV 100.7 H (80.0-100.0) fL Plt Count 148 L (150-450) k/uL Neutrophils # 23.9 H (1.3-7.7) k/uL Lymphocytes # 0.6 L (1.0-4.8) k/uL Monocytes # 1.1 H (0-1.0) k/uL Sodium (137-145) mmol/L Chloride (98-107) mmol/L BUN (9-20) mg/dL Creatinine (0.66-1.25) mg/dL Glucose (74-99) mg/dL POC Glucose (mg/dL) 154 H (75-99) mg/dL Calcium (8.4-10.2) mg/dL ALT (4-49) U/L Alkaline Phosphatase (38-126) U/L Total Protein (6.3-8.2) g/dL Albumin (3.5-5.0) g/dL Crossmatch See Detail 12/15/21 12/15/21 12/15/21 Range/Units 18:25 20:01 23:18 WBC 23.4 H (3.8-10.6) k/uL RBC 2.65 L (4.30-5.90) m/uL Hgb 8.4 L (13.0-17.5) gm/dL Hct 26.2 L (39.0-53.0) % MCV (80.0-100.0) fL Plt Count 147 L (150-450) k/uL Neutrophils # 21.9 H (1.3-7.7) k/uL Lymphocytes # 0.5 L (1.0-4.8) k/uL Monocytes # (0-1.0) k/uL Sodium (137-145) mmol/L Chloride (98-107) mmol/L BUN (9-20) mg/dL Creatinine (0.66-1.25) mg/dL Glucose (74-99) mg/dL POC Glucose (mg/dL) 167 H 144 H (75-99) mg/dL Calcium (8.4-10.2) mg/dL ALT (4-49) U/L Alkaline Phosphatase (38-126) U/L Total Protein (6.3-8.2) g/dL Albumin (3.5-5.0) g/dL Crossmatch 12/16/21 12/16/21 12/16/21 Range/Units 03:10 03:10 05:53 WBC 25.3 H (3.8-10.6) k/uL RBC 2.96 L (4.30-5.90) m/uL Hgb 9.4 L (13.0-17.5) gm/dL Hct 28.7 L (39.0-53.0) % MCV (80.0-100.0) fL Plt Count 145 L (150-450) k/uL Neutrophils # 23.7 H (1.3-7.7) k/uL Lymphocytes # 0.5 L (1.0-4.8) k/uL Monocytes # (0-1.0) k/uL Sodium 136 L (137-145) mmol/L Chloride 113 H (98-107) mmol/L BUN 47 H (9-20) mg/dL Creatinine 1.47 H (0.66-1.25) mg/dL Glucose 185 H (74-99) mg/dL POC Glucose (mg/dL) 229 H (75-99) mg/dL Calcium 6.7 L (8.4-10.2) mg/dL ALT 69 H (4-49) U/L Alkaline Phosphatase 161 H (38-126) U/L Total Protein 3.3 L (6.3-8.2) g/dL Albumin 1.5 L (3.5-5.0) g/dL Crossmatch
[2021-12-16 11:45] LABS: Glucose,Whole Blood 203 mg/dL (75-99)
[2021-12-16] MEDS: SODIUM CHLORIDE 0.9% 1,000 ML IV SCH (12:21)
--- NOTE | 2021-12-16 14:21 | P.PN ---
Subjective Progress Note Date: 12/16/21 80-year-old male who was initially seen in the emergency department, on 12/08/2021, for nausea and vomiting. For a week or so prior to admission, the patient admits to ongoing nausea and vomiting. He apparently told the ER physician that anything he eats, he vomits. He was not able to take his usual m edications. The patient was recently diagnosed with an obstructive kidney stone, and was scheduled for a ureteral stent. He apparently denied fever when he was in the emergency department. He does have some minimal stool output from his colostomy. He denied any abdominal pain. We are asked to see him today, after his been in the hospital since December 08. Apparently he was found to have hypotension, and wasn't looking very good, and we decided to move him to the intensive care unit for further monitoring and management. 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 Also, on December 09, the patient underwent an exploratory laparotomy, extensive lysis of adhesions, and repair of parastomal hernia. The patient also had a small bowel resection. This was done because of bowel obstruction. Urine sampling from December 08 revealed evidence of pseudomonas aeruginosa. White count 22.68, hemoglobin 10.9, hematocrit 33.7, and platelet count 219,000. Sodium 141, potassium 3.8, chlorides 111, CO2 14, anion gap 17, BUN 38, and creatinine 1.8. AST was 387, and ALT was 467. Those are both increasing. Also, urine sampling from December 18 revealed what appears to be a urinary tract infection. Chest x-ray back from December 08 did not show anything acute. Cardiology saw the patient in consultation and ordered amiodarone, lidocaine, and Lopressor. EKG done on 5 N., revealed a wide-complex tachycardia, and a new bundle branch. history significant for CAD and prior stenting of the RCA and LAD as well as ischemic cardiomyopathy and status post AICD and also status post VT ablation in 202012/13/2021, the patient is in the intensive care unit. His current cardiac rhythm is sinus. He is having runs of episodic atrial fibrillation. There is still having episodes of nonsustained ventricular tachycardia. The patient was seen by cardiology. He remains on amiodarone drip which is running at 0.5 mcg/kg per minute and the patient remains on IV heparin. This morning, cardiology evaluated the patient and put him on a beta christelle and the patient is currently on Toprol-XL 25 mg twice a day and the patient was also started on Mexitil at a dose of 150 milligrams by mouth twice a day. The patient's blood pressure currently is at 124/75. He is on no pressors. He is receiving lactated Ringer at the rate of 20 mL an hour. He is free of any chest pain. His blood work shows a BUN of 57 with a creatinine of 1.8 and the creatinine is at 3.8 and the sodium level is at 140. Normal potassium of 3.8. Lactic acid level was down to 1.8. Troponins were 0.04 and 0.03 respectively 2. His pro- calcitonin level was 1.1. Note that his white cell count is at 38 which is comparable to yesterday and the patient also has a hemoglobin of 13.8 and a platelet count of 190. As mentioned, he had a pseudomonal urinary tract infection. The patient will remains on IV Zosyn. Echo was obtained this morning and the results are still pending for now. His liver function tests were also abnormal. His AST of 157 and ALT of 313 and an alkaline phosphatase of 309. His bilirubin is currently at 1.9. Ultrasound of the liver that was obtained on 12/11/2021 showed limitation due to his body habitus and bowel gas pattern. There was cholelithiasis with distention of the gallbladder possibly indicating an acute cholecystitis. There was still evidence of hydronephrosis of the right kidney stone measuring 1.5 cm in the right kidney was mildly hydro nephrotic. His original CAT scan of the abdomen and pelvis that was on 12/08/2021 showed high-grade mechanical small bowel obstruction with transition point in the left lower quadrant in addition to a parastomal hernia. There was also significant wall thickening of the colon just proximal to the colostomy and surrounding area of an acute inflammatory change with her underlying colitis/diverticulitis not being completely excluded. There was also left distal ureteral obstruction with stone and moderate degree of left-sided hydroureter and hydronephrosis. He has NGT and the output was 400 cc over 12 hour 12/14 2021, the patient is being seen in the intensive care unit. This morning, the patient is in a normal sinus rhythm. He did not have any wide-complex tachycardic events overnight. He is currently on a combination of Toprol-XL 25 mg twice a day, Mexitil 150 mg by mouth twice a day and the patient is starting on by mouth amiodarone coming off the amiodarone drip. I was quite concerned about his abdominal situation yesterday and there was a concern of a acute cholecystitis based on the ultrasound findings. There was also concern about ongoing mechanical obstruction as the colostomy stoma looked pale. Based on that, CAT scan of the abdomen was obtained yesterday and the results were discussed with the general surgeon. In summary, a detailed description of the abdominal findings was given in the CAT scan. Based on my understanding with the surgeons evaluation, the patient still has an area of a parastomal hernia which is fat filled and there is some ongoing ileus, unsure of there is any ongoing mechanical obstruction of the small bowel. There is an expected outcome following surgery. NG tube was in place and the patient had a moderate size hiatal hernia. There was contrast backing up into the esophagus. At the same time, there was a foci of air in the right upper quadrant which could be potentially postsurgical in nature. As such, there was no indication for any acute abdomen. There was generalized anasarca and moderate degree of abdominal and pelvic ascites. There was also a small and new bilateral pleural effusion more so on the right compared to the left lung with some adjacent atelectasis and some areas of patchy groundglass pulmonary infiltrates in lung bases and interval placement of a left ureteral stent and this was done by urology for obstructive uropathy. Gallbladder itself was hydropic with cholelithiasis. There was some possible surrounding inflammation versus changes related to anasarca. Nevertheless, on examination, the patient does not have any significant tenderness in the right upper quadrant. In terms of his LFTs, the patient's ALT is 54 and the AST is 127 and the alkaline phosphatase is 181. His current bilirubin is at 1.6. Note that his LFTs have been improving consistently. His creatinine is down to 1.6 with a BUN of 55 and his sodium level is at 136. White cell count is lower down to 33 with a hemoglobin of 10.7 and platelet count of 173. The patient remains on antibiotics with IV Zosyn. On reevaluation of the stoma, the stoma itself looks pale and there is no output in the colostomy bag. NG tube is in place and output has been in the order of 300 mL overnight. The patient remains in IV heparin for now. 2021, I'm happy to see that the patient is hemodynamically stable. No episodes of ventricular tachycardia overnight. The patient remains on Toprol-XL 25 mg, Mexitil 150 mg by mouth twice a day and he is also on oral amiodarone at a dose of 400 mg twice a day. His current cardiac rhythm is sinus. He is hemodynamically stable. He remains on IV heparin drip. Meanwhile, the patient is on TPN for nutritional support. I'm pleased to see that the patient has gas and positive stool output is colostomy bag. This was noted yesterday. The average output is minimal at this point in time. The patient was offered some clear liquid diet yesterday which he was able to tolerate. No nausea. No emesis. No abdominal pain or distention. No pain in his right quadrant of his abdomen knowing that the patient has a hydropic gallbladder and cholelithiasis. He remains on IV Zosyn regarding a pseudomonal UTI and intra-abdominal coverage following is abdominal surgery. At the same time, the patient's white cell count is still elevated from yesterday and repeat white cell count is pending from today. His white cell count from yesterday was 33. The patient's electrolytes are showing a potassium of 3.0 to be replaced. Creatinine is stable at 1.6 and a BUN of 55. His liver function tests were improving and they're essentially still improving with a AST of 88, ALT of 160, bilirubin is at 1.1. His total protein is at 3.6 with an albumin level of 1.6. Triglyceride levels are 109. Overall fluid balance over the past 24 hours is been +2.4 L. His current IV fluids are 0.9 at 75 and this is to be cut down to KVO. He is on TPN which is running at the rate of 30 mL an hour. He is arousable. He is awake and alert. Follows commands. Overall, quite weak and debilitated. 12/16/2021, I'm seeing the patient for a follow-up. The patient is awake and alert and arousable and answering questions appropriately. He remains quite weak and debilitated. Noted the patient has not had any cardiac arrhythmias. The patient was on IV heparin regarding approximately atrial fibrillation subsequently the patient started having bloody output through the colostomy. The patient accordingly, was taken off the IV heparin. This morning, the output in the colostomy bag is quite bloody and it doesn't look to be melanotic. As such, this could be a GI bleed related to anticoagulation. At evaluation was held and the patient remains in with an empty stable at this point. Most recent blood count is at 9.4 hemoglobin and the patient has a white cell count 25.3. Creatinine stable at 1.47 and the creatinine is slightly improved compared to yesterday. The patient is currently nothing by mouth. Patient is receiving TPN for nutritional support. The patient remains on IV Zosyn regarding Pseudomonas UTI. Using incentive spirometer. No other significant events otherwise for now. General surgeries on the case regarding this ongoing GI bleed. Note that the patient's hemoglobin was as high as 13.8 on 12/13/2021, the patient's hemoglobin dropped down to 8.4 and the patient was given a unit of packed RBC and the subsequent hemoglobin is at 9.4. The white cell count is at 25.3. Platelet count is 145. Creatinine is lower at 1.47. Sodium is at 136. LFTs are normal. The surgical wound site is dry clean and intact. Objective - Vital Signs Vital signs: Vital Signs Temp 98.2 F 12/16/21 12:00 Pulse 69 12/16/21 14:00 Resp 27 H 12/16/21 14:00 BP 109/59 12/16/21 14:00 Pulse Ox 91 L 12/16/21 14:00 Intake & Output 12/15/21 12/16/21 12/16/21 18:59 06:59 18:59 Intake Total 1323 1214 820 Output Total 550 830 490 Balance 773 384 330 Weight 92.5 kg Intake: IV 513 854 620 Fat Emulsion 20% 250 ml @ 168 84 20.833 mls/hr IV We [facility] Rx#:[id number] Sodium Chloride 0.9% 1, 345 170 20 000 ml @ 20 mls/hr IV . Q24H [facility] Rx#:[id number] Sodium Phosphate 15 mmol 600 600 Potassium Acetate 40 meq Magnesium Sulfate Syg 4. 06 meq Calcium Gluconate 1 gm In Amino Acids 5 %/ Dextrose 20 % 1,000 ml @ 75 mls/hr IV .BY DURATION [facility] Rx#:[id number] Intake, IV Titration 810 50 Amount Heparin Sod,Pork in 0.45% 250 NaCl 25,000 unit In 0.45 % NaCl 1 250ml.bag @ 12 UNITS/KG/HR 9.308 mls/hr IV .Q24H [facility] Rx#: [id number] Mvi, Adult No.4 with Vit 180 K 10 ml Trace (Conc-1Ml/ Dose) 1 ml In Amino Acid 5%-D20w+Lytes*E* 1,000 ml @ 30 mls/hr IV .Q24H [facility] Rx#:[id number] Potassium Chloride 20 meq 200 In Water For Injection 1 100ml.bag @ 50 mls/hr IVPB Q2H [facility] Rx#: [id number] Sodium Phosphate 15 mmol 180 50 Potassium Acetate 40 meq Magnesium Sulfate Syg 4. 06 meq Calcium Gluconate 1 gm In Amino Acids 5 %/ Dextrose 20 % 1,000 ml @ 75 mls/hr IV .BY DURATION [facility] Rx#:[id number] Oral 200 Blood Product 310 Rc As-1 Unit 310 [id number] Output: Urine 550 630 490 Stool 200 Other: Voiding Method Indwelling Catheter Indwelling Catheter Indwelling Catheter - Exam No acute distress, oriented, the patient is pale, and looks chronically ill. Currently on 2 L of oxygen by nasal cannula. NG tube has been removed. Head exam was generally normal. There was no scleral icterus or corneal arcus. Mucous membranes were moist. HEENT examination is grossly unremarkable. NG tube is noted. Neck supple. Full range of motion. No adenopathy thyromegaly or neck vein distention. Cardiovascular examination reveals regular rhythm rate. S1-S2 normal. No S3 or S4. No discernible murmur noted The patient has a pacemaker pocket over the left anterior chest area/AICD pocket. Lungs reveal scattered mild rhonchi. No wheezes or crackles. Breath sounds equal. Saturations 94% on 2 L. Abdomen soft without bowel sounds. A dressing is noted over the recent exploratory laparotomy. There is a colostomy in the left lower quadrant. The colostomy site is quite pale and nonfunctional this point in time. There is no output in the colostomy bag. No direct tenderness in the right upper quadrant. No rebound tenderness no guarding. Surgical wound site is dry clean and intact. Bowel sounds are extensively hypoactive. The abdominal exam is essentially unchanged compared to yesterday. Extremities are intact. No cyanosis clubbing or edema. Skin is without rash or lesion. The patient has a DTI on his coccyx. Neurologic examination is brief but nonfocal. The patient is lethargic but the patient is arousable. The patient is following simple commands. - Labs CBC & Chem 7: 12/16/21 03:10 12/16/21 03:10 Labs: Abnormal Lab Results - Last 24 Hours (Table) 12/15/21 12/15/21 12/15/21 Range/Units 17:24 18:25 20:01 WBC 23.4 H (3.8-10.6) k/uL RBC 2.65 L (4.30-5.90) m/uL Hgb 8.4 L (13.0-17.5) gm/dL Hct 26.2 L (39.0-53.0) % Plt Count 147 L (150-450) k/uL Neutrophils # 21.9 H (1.3-7.7) k/uL Lymphocytes # 0.5 L (1.0-4.8) k/uL Sodium (137-145) mmol/L Chloride (98-107) mmol/L BUN (9-20) mg/dL Creatinine (0.66-1.25) mg/dL Glucose (74-99) mg/dL POC Glucose (mg/dL) 167 H (75-99) mg/dL Calcium (8.4-10.2) mg/dL ALT (4-49) U/L Alkaline Phosphatase (38-126) U/L Total Protein (6.3-8.2) g/dL Albumin (3.5-5.0) g/dL Crossmatch See Detail 12/15/21 12/16/21 12/16/21 Range/Units 23:18 03:10 03:10 WBC 25.3 H (3.8-10.6) k/uL RBC 2.96 L (4.30-5.90) m/uL Hgb 9.4 L (13.0-17.5) gm/dL Hct 28.7 L (39.0-53.0) % Plt Count 145 L (150-450) k/uL Neutrophils # 23.7 H (1.3-7.7) k/uL Lymphocytes # 0.5 L (1.0-4.8) k/uL Sodium 136 L (137-145) mmol/L Chloride 113 H (98-107) mmol/L BUN 47 H (9-20) mg/dL Creatinine 1.47 H (0.66-1.25) mg/dL Glucose 185 H (74-99) mg/dL POC Glucose (mg/dL) 144 H (75-99) mg/dL Calcium 6.7 L (8.4-10.2) mg/dL ALT 69 H (4-49) U/L Alkaline Phosphatase 161 H (38-126) U/L Total Protein 3.3 L (6.3-8.2) g/dL Albumin 1.5 L (3.5-5.0) g/dL Crossmatch 12/16/21 12/16/21 Range/Units 05:53 11:43 WBC (3.8-10.6) k/uL RBC (4.30-5.90) m/uL Hgb (13.0-17.5) gm/dL Hct (39.0-53.0) % Plt Count (150-450) k/uL Neutrophils # (1.3-7.7) k/uL Lymphocytes # (1.0-4.8) k/uL Sodium (137-145) mmol/L Chloride (98-107) mmol/L BUN (9-20) mg/dL Creatinine (0.66-1.25) mg/dL Glucose (74-99) mg/dL POC Glucose (mg/dL) 229 H 203 H (75-99) mg/dL Calcium (8.4-10.2) mg/dL ALT (4-49) U/L Alkaline Phosphatase (38-126) U/L Total Protein (6.3-8.2) g/dL Albumin (3.5-5.0) g/dL Crossmatch Assessment and Plan Plan: 1 Status post exploratory laparotomy, lysis of adhesions, repair of parastomal hernia, small bowel resection, 12/09/2021. There may be also a component of diverticulitis/ischemic bowel adjacent to the hernia. The patient underwent expiratory laparotomy. The patient is currently nothing by mouth. NG tube is in place. The patient is currently on antibiotics and the patient is currently on IV Zosyn. The patient is currently postop day #7. Repeat CAT scan of the abdomen was noted and there is hydropic gallbladder along with cholelithiasis, LFTs are improving and at the same time the patient continues to have ileus, ventral hernia, and the stoma itself is pale and nonfunctional at this point in time. The patient shows adequate output in his colostomy bag. His colostomy is functional. 2 GI bleeding with subsequent drop in hemoglobin. The patient is currently off IV heparin. General surgeries on the case. The patient is currently nothing by mouth. Patient continues to be on TPN for nutritional support. 3 Pseudomonas aeruginosa urinary tract infection, and likely sepsis. Status post left ureteral stent, for hydronephrosis and renal calculi, 12/09/2021. The patient has some indication for some mild right-sided hydronephrosis and this will be further discussed with urology. He remains on IV Zosyn 4 Wide-complex tachycardia, new since admission.She is known to have ischemic cardiomyopathy with previous history of coronary artery disease and V. tach and the patient has undergone previous VT ablation currently has an AICD in place. The patient is currently on combination of amiodarone, Mexitil and Toprol-XL. Noted the patient had a internal rotation of the AICD yesterday and he was having apparently episodes of nonsustained VT. He did not receive any shock. The amiodarone has been switched to oral 400 mg twice a day. 5 transaminitis, which may relate to underlying cholecystitis. Consider acute cholecystitis. General surgeries on the case. The CAT scan of the abdomen shows hydropic gallbladder with cholelithiasis. LFTs are improving on today's evaluation the patient does not have any right upper quadrant tenderness. No LFTs continued to improve with 6 acute kidney injury, on top of chronic kidney disease. The patient has likely an underlying chronic stage III kidney disease. 7 acute leukocytosis 8 History of CAD, status post heart catheterization with stent placement. 9 history of nonsustained VT, post VT ablation and the patient has a History of AICD placement. 10 History of sleep apnea syndrome. 11 History of hyperlipidemia. 12 History of hypertension. 13 History of colon cancer, status post colectomy with colostomy. 14 History of deep venous thrombosis. 15 paroxysmal atrial fibrillation, currently off IV heparin Plan: IV to KVO This continued IV heparin Keep the patient nothing by mouth TPN for nutritional support echocardiogram was suboptimal and no accurate information could be obtained Completed the course of IV Zosyn Monitor WBC count Monitor GI bleed in hemoglobin Medication adjustments done regarding ventricle tachycardia was noted and the patient is currently on Toprol-XL, Mexitil and amiodarone PO Monitor LFTs Incentive spirometer Monitor colostomy output still in a critical condition. We'll continue to follow make further dave mmendations based on his progress.
--- NOTE | 2021-12-16 14:48 | P.PN ---
Subjective Progress Note Date: 12/16/21 CHIEF COMPLAINT: Small bowel ejection HISTORY OF PRESENT ILLNESS: Patient is in the ICU. Patient is postop day #7 status post exploratory laparotomy, lysis of extensive adhesions, repair of parastomal hernia and small bowel resection for small bowel obstruction due to parastomal hernia and adhesions. Patient is lying in bed comfortably. Reports minimal abdominal pain. Denies any right upper quadrant abdominal pain. NG tube discontinued yesterday. Patient currently tolerating popsicles and ice c hips. Ostomy is functioning. Output from ostomy has evidence of blood with the stool. IV heparin was discontinued yesterday. He did have a drop of hemoglobin from 9-8.4 he did receive a unit of blood. Hemoglobin this morning is 9.4. Repeat CBC ordered for this afternoon. Stool for occult blood was positive. Afebrile. White count is at 25.3. Creatinine 1.47 LFTs trending down. Also note the patient's hematuria dysuria has resolved. Patient seen and examined with Dr. velarde PHYSICAL EXAM: VITAL SIGNS: Reviewed. GENERAL: Well-developed in no acute distress. HEENT: No sclera icterus. Extraocular movements grossly intact. Moist buccal mucosa. Head is atraumatic, normocephalic. ABDOMEN: Soft. Nondistended. Minimal tenderness noted at incision site. Incision site clean dry and intact. Ostomy functioning with stool and air. There is also blood noted in ostomy bag. NEUROLOGIC: awake and alert ASSESSMENT: 1. 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 Left hydronephrosis secondary to left ureteral stricture status post cystoscopy with left ureteroscopy balloon dilatation of the left distal ureteral stricture and left ureteral stent insertion by Dr. Cool 3. Sustained ventricle tachycardia 4. Hypokalemia 5. Distended gallbladder with cholelithiasis 6. Possible postoperative ileus 7. Leukocytosis 10. GI bleeding with blood noted in stool in ostomy bag likely secondary to the anticoagulation 11. Severe protein calorie malnutrition 12. History of atrial fibrillation PLAN: -Continue to hold anticoagulation -Advance diet to full liquids -Continue ICU management -Continue supportive care -Continue antibiotics -Continue to monitor hemoglobin -Continue Tylenol as needed for pain -Encourage incentive spirometer use -Continue TPN for nutrition support Physician Computator note has been reviewed by physician. Signing provider agrees with the documented findings, assessment, and plan of care. Objective - Vital Signs Vital signs: Vital Signs Temp 98.2 F 12/16/21 12:00 Pulse 69 12/16/21 14:00 Resp 27 H 12/16/21 14:00 BP 109/59 12/16/21 14:00 Pulse Ox 91 L 12/16/21 14:00 Intake & Output 12/15/21 12/16/21 12/16/21 18:59 06:59 18:59 Intake Total 1323 1214 820 Output Total 550 830 490 Balance 773 384 330 Weight 92.5 kg Intake: IV 513 854 620 Fat Emulsion 20% 250 ml @ 168 84 20.833 mls/hr IV We [facility] Rx#:[id number] Sodium Chloride 0.9% 1, 345 170 20 000 ml @ 20 mls/hr IV . Q24H [facility] Rx#:[id number] Sodium Phosphate 15 mmol 600 600 Potassium Acetate 40 meq Magnesium Sulfate Syg 4. 06 meq Calcium Gluconate 1 gm In Amino Acids 5 %/ Dextrose 20 % 1,000 ml @ 75 mls/hr IV .BY DURATION [facility] Rx#:[id number] Intake, IV Titration 810 50 Amount Heparin Sod,Pork in 0.45% 250 NaCl 25,000 unit In 0.45 % NaCl 1 250ml.bag @ 12 UNITS/KG/HR 9.308 mls/hr IV .Q24H [facility] Rx#: [id number] Mvi, Adult No.4 with Vit 180 K 10 ml Trace (Conc-1Ml/ Dose) 1 ml In Amino Acid 5%-D20w+Lytes*E* 1,000 ml @ 30 mls/hr IV .Q24H [facility] Rx#:[id number] Potassium Chloride 20 meq 200 In Water For Injection 1 100ml.bag @ 50 mls/hr IVPB Q2H [facility] Rx#: [id number] Sodium Phosphate 15 mmol 180 50 Potassium Acetate 40 meq Magnesium Sulfate Syg 4. 06 meq Calcium Gluconate 1 gm In Amino Acids 5 %/ Dextrose 20 % 1,000 ml @ 75 mls/hr IV .BY DURATION [facility] Rx#:[id number] Oral 200 Blood Product 310 Rc As-1 Unit 310 [id number] Output: Urine 550 630 490 Stool 200 Other: Voiding Method Indwelling Catheter Indwelling Catheter Indwelling Catheter - Labs CBC & Chem 7: 12/16/21 03:10 12/16/21 03:10 Labs: Abnormal Lab Results - Last 24 Hours (Table) 12/15/21 12/15/21 12/15/21 Range/Units 17:24 18:25 20:01 WBC 23.4 H (3.8-10.6) k/uL RBC 2.65 L (4.30-5.90) m/uL Hgb 8.4 L (13.0-17.5) gm/dL Hct 26.2 L (39.0-53.0) % Plt Count 147 L (150-450) k/uL Neutrophils # 21.9 H (1.3-7.7) k/uL Lymphocytes # 0.5 L (1.0-4.8) k/uL Sodium (137-145) mmol/L Chloride (98-107) mmol/L BUN (9-20) mg/dL Creatinine (0.66-1.25) mg/dL Glucose (74-99) mg/dL POC Glucose (mg/dL) 167 H (75-99) mg/dL Calcium (8.4-10.2) mg/dL ALT (4-49) U/L Alkaline Phosphatase (38-126) U/L Total Protein (6.3-8.2) g/dL Albumin (3.5-5.0) g/dL Crossmatch See Detail 12/15/21 12/16/21 12/16/21 Range/Units 23:18 03:10 03:10 WBC 25.3 H (3.8-10.6) k/uL RBC 2.96 L (4.30-5.90) m/uL Hgb 9.4 L (13.0-17.5) gm/dL Hct 28.7 L (39.0-53.0) % Plt Count 145 L (150-450) k/uL Neutrophils # 23.7 H (1.3-7.7) k/uL Lymphocytes # 0.5 L (1.0-4.8) k/uL Sodium 136 L (137-145) mmol/L Chloride 113 H (98-107) mmol/L BUN 47 H (9-20) mg/dL Creatinine 1.47 H (0.66-1.25) mg/dL Glucose 185 H (74-99) mg/dL POC Glucose (mg/dL) 144 H (75-99) mg/dL Calcium 6.7 L (8.4-10.2) mg/dL ALT 69 H (4-49) U/L Alkaline Phosphatase 161 H (38-126) U/L Total Protein 3.3 L (6.3-8.2) g/dL Albumin 1.5 L (3.5-5.0) g/dL Crossmatch 12/16/21 12/16/21 Range/Units 05:53 11:43 WBC (3.8-10.6) k/uL RBC (4.30-5.90) m/uL Hgb (13.0-17.5) gm/dL Hct (39.0-53.0) % Plt Count (150-450) k/uL Neutrophils # (1.3-7.7) k/uL Lymphocytes # (1.0-4.8) k/uL Sodium (137-145) mmol/L Chloride (98-107) mmol/L BUN (9-20) mg/dL Creatinine (0.66-1.25) mg/dL Glucose (74-99) mg/dL POC Glucose (mg/dL) 229 H 203 H (75-99) mg/dL Calcium (8.4-10.2) mg/dL ALT (4-49) U/L Alkaline Phosphatase (38-126) U/L Total Protein (6.3-8.2) g/dL Albumin (3.5-5.0) g/dL Crossmatch
[2021-12-16] MEDS ORDERED: DEXTROSE 5% IN WATER 100 ML with AMIODARONE 150 MG IV ONE (15:20)
[2021-12-16] MEDS ORDERED: AMIODARONE 360 MG in DEXTROSE 5% IN WATER 200 ML IV ONE ×2 (15:30)
[2021-12-16] MEDS: MAGNESIUM SULFATE IV SCH ×7 (15:31)
[2021-12-16] MEDS: [UNRECOGNIZED DRUG - OTHER] IV SCH ×7 (15:31)
[2021-12-16] MEDS: SODIUM PHOSPHATE IV SCH ×7 (15:31)
[2021-12-16] MEDS: POTASSIUM ACETATE IV SCH ×7 (15:31)
[2021-12-16 16:25] LABS: HCT 31.8 % (39.0-53.0); HGB 10.5 gm/dL (13.0-17.5); Hypochromasia Slight; MCH 32.2 pg (25.0-35.0); MCHC 32.9 g/dL (31.0-37.0); MCV 98.1 fL (80.0-100.0); Mean Platelet Volume 9.5; Platelet Count 163 k/uL (150-450); RBC 3.24 m/uL (4.30-5.90); RDW 15.1 % (11.5-15.5); WBC 32.2 k/uL (3.8-10.6)
[2021-12-16 16:43] LABS: Magnesium 2.2 mg/dL (1.6-2.3); Potassium 3.7 mmol/L (3.5-5.1)
[2021-12-16] MEDS ORDERED: POTASSIUM CHLORIDE ER 20 MEQ TAB.ER PO SCH (18:00)
[2021-12-16 18:11] LABS: Glucose,Whole Blood 264 mg/dL (75-99)
[2021-12-16] MEDS: AMIODARONE 450 MG in DEXTROSE 5% IN WATER 250 ML IV SCH ×2 (20:08)
[2021-12-16] MEDS: TAMSULOSIN 0.4 MG CAP.ER.24H PO SCH (20:08)
[2021-12-16] MEDS: ATORVASTATIN 40 MG TAB PO SCH (20:08)
[2021-12-17 00:15] LABS: Glucose,Whole Blood 228 mg/dL (75-99)
[2021-12-17] MEDS: INSULIN ASPART (NovoLOG) 100 UNIT/ML VIAL SQ SCH ×4 (00:26→17:41)
[2021-12-17] MEDS: ONDANSETRON 4 MG/2 ML VIAL IVP PRN ×3 (02:07→20:09)
[2021-12-17] MEDS: POTASSIUM ACETATE IV SCH ×14 (03:36→18:40)
[2021-12-17] MEDS: [UNRECOGNIZED DRUG - OTHER] IV SCH ×7 (03:36)
[2021-12-17] MEDS: SODIUM PHOSPHATE IV SCH ×14 (03:36→18:40)
[2021-12-17] MEDS: MAGNESIUM SULFATE IV SCH ×14 (03:36→18:40)
[2021-12-17 06:08] LABS: Glucose,Whole Blood 205 mg/dL (75-99)
[2021-12-17 06:42] LABS: ALT 69 U/L (4-49); AST 62 U/L (17-59); African American GFR (CKD) 52 (>60 ml/min/1.73 sqM); Albumin 1.6 g/dL (3.5-5.0); Alkaline Phosphatase 213 U/L (38-126); Anion Gap 4 mmol/L; Blood Urea Nitrogen 43 mg/dL (9-20); Calcium 6.9 mg/dL (8.4-10.2); Carbon Dioxide 20 mmol/L (22-30); Chloride 112 mmol/L (98-107); Glucose 227 mg/dL (74-99); Magnesium 2.2 mg/dL (1.6-2.3); Non-African American GFR(CKD) 45 (>60 ml/min/1.73 sqM); Phosphorus 2.4 mg/dL (2.5-4.5); Potassium 4.2 mmol/L (3.5-5.1); Sodium 136 mmol/L (137-145); Total Protein 3.8 g/dL (6.3-8.2)
[2021-12-17 06:59] LABS: Basophils % (A) 0 %; Eosinophils # (A) 0.1 k/uL (0-0.7); Eosinophils % (A) 0 %; HCT 34.4 % (39.0-53.0); HGB 10.8 gm/dL (13.0-17.5); Hypochromasia Slight; Lymphocytes # (A) 0.6 k/uL (1.0-4.8); Lymphocytes % (A) 2 %; MCH 31.3 pg (25.0-35.0); MCHC 31.5 g/dL (31.0-37.0); MCV 99.4 fL (80.0-100.0); Macrocytosis Slight; Mean Platelet Volume 9.9; Monocytes # (A) 0.8 k/uL (0-1.0); Monocytes % (A) 2 %; Neutrophils # (A) 33.6 k/uL (1.3-7.7); Neutrophils % (A) 95 %; Platelet Count 207 k/uL (150-450); RBC 3.46 m/uL (4.30-5.90); RDW 15.9 % (11.5-15.5); WBC 35.3 k/uL (3.8-10.6)
[2021-12-17] MEDS ORDERED: FUROSEMIDE 10 MG/ML 2 ML VIAL IV STA (07:18)
--- NOTE | 2021-12-17 07:57 | XR ---
EXAMINATION TYPE: XR chest 1V portable DATE OF EXAM: 12/17/2021 CLINICAL HISTORY: Difficulty breathing progress study. TECHNIQUE: Single AP portable upright view of the chest is obtained. COMPARISON: Chest x-ray from 5 days earlier FINDINGS: Persistent cardiomegaly with dual lead pacemaker/defibrillator along with apical fibrotic and ectatic thoracic aorta. Persistent low lung volumes with bibasilar opacities. Osseous structures are demineralized. Underlying scoliosis is present. IMPRESSION: Cardiomegaly with left greater than right bibasilar acute infiltrate and/or atelectasis r edemonstrated. Suspect tiny bilateral pleural effusions. No significant change from most recent x-ray .
--- NOTE | 2021-12-17 08:00 | P.PN ---
Subjective Progress Note Date: 12/17/21 Principal diagnosis: Ventricular tachycardia The patient is an 80-year-old gentleman with a past medical history significant for CAD and prior stenting of the RCA and LAD as well as ischemic cardiomyopathy and status post AICD and also status post VT ablation in 2020 as well as hypertension and dyslipidemia was admitted to the hospital with abdominal discomfort and underwent exploratory laparotomy with lysis of adhesion and repair of parastomal hernia and small bowel resection. The patient was transferred to the intensive care unit yesterday because he did have an episode of wide complex tachycardia to me looks like ventricular tachycardia. He was started on amiodarone IV as well as mexiletine. The patient was seen this morning. He did have an episode of wide-complex tachycardia seems to be consistent with SVT. He was started back on amiodarone IV after he was on amiodarone by mouth. I'm going to increase the dose of mexiletine. He seems overall lethargic this morning. Hemodynamically he is stable with a soft blood pressure. Currently he is in sinus rhythm. Heparin is on hold at this point in view of the possible GI bleeding and drop in hemoglobin record one unit of packed RBC. His hemoglobin this morning is a stable. Objective - Vital Signs Vital signs: Vital Signs Temp 98.6 F 12/17/21 04:00 Pulse 83 12/17/21 07:00 Resp 31 H 12/17/21 07:00 BP 92/60 12/17/21 07:00 Pulse Ox 96 12/17/21 07:00 Intake & Output 12/16/21 12/17/21 12/17/21 18:59 06:59 18:59 Intake Total 2431 825 Output Total 1330 630 Balance 1101 195 Weight 96.2 kg Intake: IV 995 825 Sodium Chloride 0.9% 1, 20 000 ml @ 20 mls/hr IV . Q24H [facility] Rx#:[id number] Sodium Phosphate 15 mmol 975 825 Potassium Acetate 40 meq Magnesium Sulfate Syg 4. 06 meq Calcium Gluconate 1 gm In Amino Acids 5 %/ Dextrose 20 % 1,000 ml @ 75 mls/hr IV .BY DURATION [facility] Rx#:[id number] Intake, IV Titration 1036 Amount Sodium Phosphate 15 mmol 1036 Potassium Acetate 40 meq Magnesium Sulfate Syg 4. 06 meq Calcium Gluconate 1 gm In Amino Acids 5 %/ Dextrose 20 % 1,000 ml @ 75 mls/hr IV .BY DURATION [facility] Rx#:[id number] Oral 400 Output: Urine 880 630 Stool 450 Other: Voiding Method Indwelling Catheter Indwelling Catheter - Constitutional General appearance: Present: no acute distress - Respiratory Respiratory: bilateral: diminished - Cardiovascular Rhythm: regular Heart sounds: normal: S1, S2 - Labs CBC & Chem 7: 12/17/21 06:03 12/17/21 06:03 Labs: Abnormal Lab Results - Last 24 Hours (Table) 12/16/21 12/16/21 12/16/21 Range/Units 11:43 15:59 18:10 WBC 32.2 H (3.8-10.6) k/uL RBC 3.24 L (4.30-5.90) m/uL Hgb 10.5 L (13.0-17.5) gm/dL Hct 31.8 L (39.0-53.0) % RDW (11.5-15.5) % Sodium (137-145) mmol/L Chloride (98-107) mmol/L Carbon Dioxide (22-30) mmol/L BUN (9-20) mg/dL Creatinine (0.66-1.25) mg/dL Glucose (74-99) mg/dL POC Glucose (mg/dL) 203 H 264 H (75-99) mg/dL Calcium (8.4-10.2) mg/dL Phosphorus (2.5-4.5) mg/dL AST (17-59) U/L ALT (4-49) U/L Alkaline Phosphatase (38-126) U/L Total Protein (6.3-8.2) g/dL Albumin (3.5-5.0) g/dL 12/17/21 12/17/21 12/17/21 Range/Units 00:12 06:03 06:03 WBC 35.3 H (3.8-10.6) k/uL RBC 3.46 L (4.30-5.90) m/uL Hgb 10.8 L (13.0-17.5) gm/dL Hct 34.4 L (39.0-53.0) % RDW 15.9 H (11.5-15.5) % Sodium 136 L (137-145) mmol/L Chloride 112 H (98-107) mmol/L Carbon Dioxide 20 L (22-30) mmol/L BUN 43 H (9-20) mg/dL Creatinine 1.46 H (0.66-1.25) mg/dL Glucose 227 H (74-99) mg/dL POC Glucose (mg/dL) 228 H (75-99) mg/dL Calcium 6.9 L (8.4-10.2) mg/dL Phosphorus 2.4 L (2.5-4.5) mg/dL AST 62 H (17-59) U/L ALT 69 H (4-49) U/L Alkaline Phosphatase 213 H (38-126) U/L Total Protein 3.8 L (6.3-8.2) g/dL Albumin 1.6 L (3.5-5.0) g/dL 12/17/21 Range/Units 06:07 WBC (3.8-10.6) k/uL RBC (4.30-5.90) m/uL Hgb (13.0-17.5) gm/dL Hct (39.0-53.0) % RDW (11.5-15.5) % Sodium (137-145) mmol/L Chloride (98-107) mmol/L Carbon Dioxide (22-30) mmol/L BUN (9-20) mg/dL Creatinine (0.66-1.25) mg/dL Glucose (74-99) mg/dL POC Glucose (mg/dL) 205 H (75-99) mg/dL Calcium (8.4-10.2) mg/dL Phosphorus (2.5-4.5) mg/dL AST (17-59) U/L ALT (4-49) U/L Alkaline Phosphatase (38-126) U/L Total Protein (6.3-8.2) g/dL Albumin (3.5-5.0) g/dL Assessment and Plan Assessment: Assessment #1 status post exploratory laparotomy #2 sustained ventricular tachycardia #3 coronary artery disease #4 ischemic cardiomyopathy #5 status post VT ablation Plan #1 increase the dose of mexiletine #2 continue amiodarone IV #3 performed 12 please EKG to assess the QT interval #4 maintain normal potassium and normal magnesium #5 monitor the hemoglobin #6 follow-up with the patient
[2021-12-17] MEDS: FINASTERIDE 5 MG TAB PO SCH (08:38)
[2021-12-17] MEDS: SPIRONOLACTONE 25 MG TAB PO SCH (08:38)
[2021-12-17] MEDS: MEXILETINE 200 MG CAP PO SCH ×2 (08:38→17:34)
[2021-12-17] MEDS: FAMOTIDINE 20 MG/2 ML VIAL IV SCH (08:39)
[2021-12-17] MEDS ORDERED: FUROSEMIDE 10 MG/ML 10 ML VIAL IV STA (10:08)
--- NOTE | 2021-12-17 10:16 | P.PN ---
Subjective Progress Note Date: 12/17/21 Pt tolerating FLD. Has bloody stool output in ostomy, Hgb stable. UOP is good. Had 30min of sustained vtach over night, on mexilitine with increased dose and frequency, replaced on amiodarone gtt. Gen: awake, alert HEENT: normocephalic, atraumatic, good hearing acuity, moist mucous membranes Resp: good air exchange, breathing comfortably with no accessory muscle use CVS: good distal perfusion x 4, GI: soft, NTTP, ND : no SPT, no CVAT, fuentes catheter is present MSK: no pitting edema, no clubbing Neuro: non-focal, moving all extremities Psych: cooperative, euthymic mood Assessment/plan: # sepsis secondary to urinary company urinary tract infection -pseudomonas # obstructive uropathy s/p L nephroureteral stent on 12/09 # small bowel obstruction can be secondary to underlying adhesions versus parastomal hernia s/p small bowel resection on 12/09 # sustained ventricular tachycardia # coronary disease status post stent 2 # hyperlipidemia # essential hypertension # CKD Plan: -Admit to medicine, telemetry -Aspiration/fall precaution/hob30 -Urine cultures reviewed showing Pseudomonas. Urine cultures positive susceptible to Zosyn which we will continue to complete 5 days, completed 12/16 -Stent placed by urology needs outpatient follow-up as well. -FLD and TPN day 3, consideration of d/c'ing TPN, defer to surgery -on oral mexilitine, on amiodarone gtt, can consider low dose metoprolol, defer to cardiology -off of pressors -rec'd 1U PRBC on 12/16 Objective - Vital Signs Vital signs: Vital Signs Temp 98.5 F 12/17/21 08:00 Pulse 85 12/17/21 10:00 Resp 28 H 12/17/21 10:00 BP 103/66 12/17/21 10:00 Pulse Ox 94 L 12/17/21 10:00 Intake & Output 12/16/21 12/17/21 12/17/21 18:59 06:59 18:59 Intake Total 2431 825 190 Output Total 1330 630 125 Balance 1101 195 65 Weight 96.2 kg Intake: IV 995 825 190 Sodium Chloride 0.9% 1, 20 40 000 ml @ 20 mls/hr IV . Q24H [facility] Rx#:[id number] Sodium Phosphate 15 mmol 975 825 150 Potassium Acetate 40 meq Magnesium Sulfate Syg 4. 06 meq Calcium Gluconate 1 gm In Amino Acids 5 %/ Dextrose 20 % 1,000 ml @ 75 mls/hr IV .BY DURATION [facility] Rx#:[id number] Intake, IV Titration 1036 Amount Sodium Phosphate 15 mmol 1036 Potassium Acetate 40 meq Magnesium Sulfate Syg 4. 06 meq Calcium Gluconate 1 gm In Amino Acids 5 %/ Dextrose 20 % 1,000 ml @ 75 mls/hr IV .BY DURATION [facility] Rx#:[id number] Oral 400 Output: Urine 880 630 125 Stool 450 Other: Voiding Method Indwelling Catheter Indwelling Catheter Indwelling Catheter - Labs CBC & Chem 7: 12/17/21 06:03 12/17/21 06:03 Labs: Abnormal Lab Results - Last 24 Hours (Table) 12/16/21 12/16/21 12/16/21 Range/Units 11:43 15:59 18:10 WBC 32.2 H (3.8-10.6) k/uL RBC 3.24 L (4.30-5.90) m/uL Hgb 10.5 L (13.0-17.5) gm/dL Hct 31.8 L (39.0-53.0) % RDW (11.5-15.5) % Neutrophils # (1.3-7.7) k/uL Lymphocytes # (1.0-4.8) k/uL Sodium (137-145) mmol/L Chloride (98-107) mmol/L Carbon Dioxide (22-30) mmol/L BUN (9-20) mg/dL Creatinine (0.66-1.25) mg/dL Glucose (74-99) mg/dL POC Glucose (mg/dL) 203 H 264 H (75-99) mg/dL Calcium (8.4-10.2) mg/dL Phosphorus (2.5-4.5) mg/dL AST (17-59) U/L ALT (4-49) U/L Alkaline Phosphatase (38-126) U/L Total Protein (6.3-8.2) g/dL Albumin (3.5-5.0) g/dL 12/17/21 12/17/21 12/17/21 Range/Units 00:12 06:03 06:03 WBC 35.3 H (3.8-10.6) k/uL RBC 3.46 L (4.30-5.90) m/uL Hgb 10.8 L (13.0-17.5) gm/dL Hct 34.4 L (39.0-53.0) % RDW 15.9 H (11.5-15.5) % Neutrophils # 33.6 H (1.3-7.7) k/uL Lymphocytes # 0.6 L (1.0-4.8) k/uL Sodium 136 L (137-145) mmol/L Chloride 112 H (98-107) mmol/L Carbon Dioxide 20 L (22-30) mmol/L BUN 43 H (9-20) mg/dL Creatinine 1.46 H (0.66-1.25) mg/dL Glucose 227 H (74-99) mg/dL POC Glucose (mg/dL) 228 H (75-99) mg/dL Calcium 6.9 L (8.4-10.2) mg/dL Phosphorus 2.4 L (2.5-4.5) mg/dL AST 62 H (17-59) U/L ALT 69 H (4-49) U/L Alkaline Phosphatase 213 H (38-126) U/L Total Protein 3.8 L (6.3-8.2) g/dL Albumin 1.6 L (3.5-5.0) g/dL 12/17/21 Range/Units 06:07 WBC (3.8-10.6) k/uL RBC (4.30-5.90) m/uL Hgb (13.0-17.5) gm/dL Hct (39.0-53.0) % RDW (11.5-15.5) % Neutrophils # (1.3-7.7) k/uL Lymphocytes # (1.0-4.8) k/uL Sodium (137-145) mmol/L Chloride (98-107) mmol/L Carbon Dioxide (22-30) mmol/L BUN (9-20) mg/dL Creatinine (0.66-1.25) mg/dL Glucose (74-99) mg/dL POC Glucose (mg/dL) 205 H (75-99) mg/dL Calcium (8.4-10.2) mg/dL Phosphorus (2.5-4.5) mg/dL AST (17-59) U/L ALT (4-49) U/L Alkaline Phosphatase (38-126) U/L Total Protein (6.3-8.2) g/dL Albumin (3.5-5.0) g/dL
[2021-12-17 11:45] LABS: Glucose,Whole Blood 187 mg/dL (75-99)
[2021-12-17] MEDS: AMIODARONE 450 MG in DEXTROSE 5% IN WATER 250 ML IV SCH ×2 (12:15)
[2021-12-17] MEDS: SODIUM CHLORIDE 0.9% 1,000 ML IV SCH (12:15)
[2021-12-17] MEDS: NOREPINEPHRINE 4 MG in SODIUM CHLORIDE 0.9% 250 ML IV SCH (12:16)
--- NOTE | 2021-12-17 13:43 | P.PN ---
Subjective Progress Note Date: 12/17/21 CHIEF COMPLAINT: Small bowel ejection HISTORY OF PRESENT ILLNESS: Patient is in the ICU. Patient is postop day #8 status post exploratory laparotomy, lysis of extensive adhesions, repair of parastomal hernia and small bowel resection for small bowel obstruction due to parastomal hernia and adhesions. Patient is lying in bed comfortably. Reports minimal abdominal pain. Denies any right upper quadrant abdominal pain. Patient tolerating clear liquid diet. Ostomy is functioning. He still has blood-tinged stool noted. IV heparin remains off. Patient currently on amiodarone drip. He did have one episode of vomiting. He hasn't been started on a full liquid diet yesterday. He is now nothing by mouth. Afebrile. WBC is up from 32.2-35.3 hemoglobin 10.8 platelets 207 sodium 136 potassium 4.2 creatinine 1.46 AST 62 ALT 69 alk phos 213 Patient seen and examined with Dr. velarde PHYSICAL EXAM: VITAL SIGNS: Reviewed. GENERAL: Well-developed in no acute distress. HEENT: No sclera icterus. Extraocular movements grossly intact. Moist buccal mucosa. Head is atraumatic, normocephalic. ABDOMEN: Soft. Nondistended. Minimal tenderness noted at incision site. Incision site clean dry and intact. Ostomy functioning with stool and air. There is also blood noted in ostomy bag. NEUROLOGIC: awake and alert ASSESSMENT: 1. 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 Left hydronephrosis secondary to left ureteral stricture status post cystoscopy with left ureteroscopy balloon dilatation of the left distal ureteral stricture and left ureteral stent insertion by Dr. Cool 3. Sustained ventricle tachycardia 4. Hypokalemia 5. Distended gallbladder with cholelithiasis 6. Possible postoperative ileus 7. Leukocytosis 10. GI bleeding with blood noted in stool in ostomy bag likely secondary to the anticoagulation 11. Severe protein calorie malnutrition 12. History of atrial fibrillation PLAN: -Continue to hold anticoagulation -Keep patient nothing by mouth -Continue ICU management -Continue supportive care -Continue antibiotics -Continue to monitor hemoglobin -Continue Tylenol as needed for pain -Encourage incentive spirometer use -Continue TPN for nutrition support Physician Solar Applications Development Engineer note has been reviewed by physician. Signing provider agrees with the documented findings, assessment, and plan of care. Objective - Vital Signs Vital signs: Vital Signs Temp 98.5 F 12/17/21 12:00 Pulse 90 12/17/21 12:00 Resp 21 12/17/21 12:00 BP 138/68 12/17/21 12:00 Pulse Ox 93 L 12/17/21 12:00 Intake & Output 12/16/21 12/17/21 12/17/21 18:59 06:59 18:59 Intake Total 2431 825 705 Output Total 4131 394 7967 Balance 1101 195 -385 Weight 96.2 kg 96.2 kg Intake: IV 995 825 455 Sodium Chloride 0.9% 1, 20 80 000 ml @ 20 mls/hr IV . Q24H [facility] Rx#:[id number] Sodium Phosphate 15 mmol 975 825 375 Potassium Acetate 40 meq Magnesium Sulfate Syg 4. 06 meq Calcium Gluconate 1 gm In Amino Acids 5 %/ Dextrose 20 % 1,000 ml @ 75 mls/hr IV .BY DURATION [facility] Rx#:[id number] Intake, IV Titration 1036 250 Amount Amiodarone 450 mg In 250 Dextrose 5% in Water 250 ml @ 0.5 MG/MIN 16.667 mls/hr IV .Q15H [facility] Rx#: [id number] Sodium Phosphate 15 mmol 1036 Potassium Acetate 40 meq Magnesium Sulfate Syg 4. 06 meq Calcium Gluconate 1 gm In Amino Acids 5 %/ Dextrose 20 % 1,000 ml @ 75 mls/hr IV .BY DURATION [facility] Rx#:[id number] Oral 400 Output: Urine 880 630 890 Stool 450 200 Other: Voiding Method Indwelling Catheter Indwelling Catheter Indwelling Catheter - Labs CBC & Chem 7: 12/17/21 06:03 12/17/21 06:03 Labs: Abnormal Lab Results - Last 24 Hours (Table) 12/16/21 12/16/21 12/17/21 Range/Units 15:59 18:10 00:12 WBC 32.2 H (3.8-10.6) k/uL RBC 3.24 L (4.30-5.90) m/uL Hgb 10.5 L (13.0-17.5) gm/dL Hct 31.8 L (39.0-53.0) % RDW (11.5-15.5) % Neutrophils # (1.3-7.7) k/uL Lymphocytes # (1.0-4.8) k/uL Sodium (137-145) mmol/L Chloride (98-107) mmol/L Carbon Dioxide (22-30) mmol/L BUN (9-20) mg/dL Creatinine (0.66-1.25) mg/dL Glucose (74-99) mg/dL POC Glucose (mg/dL) 264 H 228 H (75-99) mg/dL Calcium (8.4-10.2) mg/dL Phosphorus (2.5-4.5) mg/dL AST (17-59) U/L ALT (4-49) U/L Alkaline Phosphatase (38-126) U/L Total Protein (6.3-8.2) g/dL Albumin (3.5-5.0) g/dL 12/17/21 12/17/21 12/17/21 Range/Units 06:03 06:03 06:07 WBC 35.3 H (3.8-10.6) k/uL RBC 3.46 L (4.30-5.90) m/uL Hgb 10.8 L (13.0-17.5) gm/dL Hct 34.4 L (39.0-53.0) % RDW 15.9 H (11.5-15.5) % Neutrophils # 33.6 H (1.3-7.7) k/uL Lymphocytes # 0.6 L (1.0-4.8) k/uL Sodium 136 L (137-145) mmol/L Chloride 112 H (98-107) mmol/L Carbon Dioxide 20 L (22-30) mmol/L BUN 43 H (9-20) mg/dL Creatinine 1.46 H (0.66-1.25) mg/dL Glucose 227 H (74-99) mg/dL POC Glucose (mg/dL) 205 H (75-99) mg/dL Calcium 6.9 L (8.4-10.2) mg/dL Phosphorus 2.4 L (2.5-4.5) mg/dL AST 62 H (17-59) U/L ALT 69 H (4-49) U/L Alkaline Phosphatase 213 H (38-126) U/L Total Protein 3.8 L (6.3-8.2) g/dL Albumin 1.6 L (3.5-5.0) g/dL 12/17/21 Range/Units 11:43 WBC (3.8-10.6) k/uL RBC (4.30-5.90) m/uL Hgb (13.0-17.5) gm/dL Hct (39.0-53.0) % RDW (11.5-15.5) % Neutrophils # (1.3-7.7) k/uL Lymphocytes # (1.0-4.8) k/uL Sodium (137-145) mmol/L Chloride (98-107) mmol/L Carbon Dioxide (22-30) mmol/L BUN (9-20) mg/dL Creatinine (0.66-1.25) mg/dL Glucose (74-99) mg/dL POC Glucose (mg/dL) 187 H (75-99) mg/dL Calcium (8.4-10.2) mg/dL Phosphorus (2.5-4.5) mg/dL AST (17-59) U/L ALT (4-49) U/L Alkaline Phosphatase (38-126) U/L Total Protein (6.3-8.2) g/dL Albumin (3.5-5.0) g/dL
--- NOTE | 2021-12-17 14:46 | P.PN ---
Subjective Progress Note Date: 12/17/21 80-year-old male who was initially seen in the emergency department, on 12/08/2021, for nausea and vomiting. For a week or so prior to admission, the patient admits to ongoing nausea and vomiting. He apparently told the ER physician that anything he eats, he vomits. He was not able to take his usual m edications. The patient was recently diagnosed with an obstructive kidney stone, and was scheduled for a ureteral stent. He apparently denied fever when he was in the emergency department. He does have some minimal stool output from his colostomy. He denied any abdominal pain. We are asked to see him today, after his been in the hospital since December 08. Apparently he was found to have hypotension, and wasn't looking very good, and we decided to move him to the intensive care unit for further monitoring and management. 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 Also, on December 09, the patient underwent an exploratory laparotomy, extensive lysis of adhesions, and repair of parastomal hernia. The patient also had a small bowel resection. This was done because of bowel obstruction. Urine sampling from December 08 revealed evidence of pseudomonas aeruginosa. White count 22.68, hemoglobin 10.9, hematocrit 33.7, and platelet count 219,000. Sodium 141, potassium 3.8, chlorides 111, CO2 14, anion gap 17, BUN 38, and creatinine 1.8. AST was 387, and ALT was 467. Those are both increasing. Also, urine sampling from December 18 revealed what appears to be a urinary tract infection. Chest x-ray back from December 08 did not show anything acute. Cardiology saw the patient in consultation and ordered amiodarone, lidocaine, and Lopressor. EKG done on 5 N., revealed a wide-complex tachycardia, and a new bundle branch. history significant for CAD and prior stenting of the RCA and LAD as well as ischemic cardiomyopathy and status post AICD and also status post VT ablation in 202012/13/2021, the patient is in the intensive care unit. His current cardiac rhythm is sinus. He is having runs of episodic atrial fibrillation. There is still having episodes of nonsustained ventricular tachycardia. The patient was seen by cardiology. He remains on amiodarone drip which is running at 0.5 mcg/kg per minute and the patient remains on IV heparin. This morning, cardiology evaluated the patient and put him on a beta christelle and the patient is currently on Toprol-XL 25 mg twice a day and the patient was also started on Mexitil at a dose of 150 milligrams by mouth twice a day. The patient's blood pressure currently is at 124/75. He is on no pressors. He is receiving lactated Ringer at the rate of 20 mL an hour. He is free of any chest pain. His blood work shows a BUN of 57 with a creatinine of 1.8 and the creatinine is at 3.8 and the sodium level is at 140. Normal potassium of 3.8. Lactic acid level was down to 1.8. Troponins were 0.04 and 0.03 respectively 2. His pro- calcitonin level was 1.1. Note that his white cell count is at 38 which is comparable to yesterday and the patient also has a hemoglobin of 13.8 and a platelet count of 190. As mentioned, he had a pseudomonal urinary tract infection. The patient will remains on IV Zosyn. Echo was obtained this morning and the results are still pending for now. His liver function tests were also abnormal. His AST of 157 and ALT of 313 and an alkaline phosphatase of 309. His bilirubin is currently at 1.9. Ultrasound of the liver that was obtained on 12/11/2021 showed limitation due to his body habitus and bowel gas pattern. There was cholelithiasis with distention of the gallbladder possibly indicating an acute cholecystitis. There was still evidence of hydronephrosis of the right kidney stone measuring 1.5 cm in the right kidney was mildly hydro nephrotic. His original CAT scan of the abdomen and pelvis that was on 12/08/2021 showed high-grade mechanical small bowel obstruction with transition point in the left lower quadrant in addition to a parastomal hernia. There was also significant wall thickening of the colon just proximal to the colostomy and surrounding area of an acute inflammatory change with her underlying colitis/diverticulitis not being completely excluded. There was also left distal ureteral obstruction with stone and moderate degree of left-sided hydroureter and hydronephrosis. He has NGT and the output was 400 cc over 12 hour 12/14 2021, the patient is being seen in the intensive care unit. This morning, the patient is in a normal sinus rhythm. He did not have any wide-complex tachycardic events overnight. He is currently on a combination of Toprol-XL 25 mg twice a day, Mexitil 150 mg by mouth twice a day and the patient is starting on by mouth amiodarone coming off the amiodarone drip. I was quite concerned about his abdominal situation yesterday and there was a concern of a acute cholecystitis based on the ultrasound findings. There was also concern about ongoing mechanical obstruction as the colostomy stoma looked pale. Based on that, CAT scan of the abdomen was obtained yesterday and the results were discussed with the general surgeon. In summary, a detailed description of the abdominal findings was given in the CAT scan. Based on my understanding with the surgeons evaluation, the patient still has an area of a parastomal hernia which is fat filled and there is some ongoing ileus, unsure of there is any ongoing mechanical obstruction of the small bowel. There is an expected outcome following surgery. NG tube was in place and the patient had a moderate size hiatal hernia. There was contrast backing up into the esophagus. At the same time, there was a foci of air in the right upper quadrant which could be potentially postsurgical in nature. As such, there was no indication for any acute abdomen. There was generalized anasarca and moderate degree of abdominal and pelvic ascites. There was also a small and new bilateral pleural effusion more so on the right compared to the left lung with some adjacent atelectasis and some areas of patchy groundglass pulmonary infiltrates in lung bases and interval placement of a left ureteral stent and this was done by urology for obstructive uropathy. Gallbladder itself was hydropic with cholelithiasis. There was some possible surrounding inflammation versus changes related to anasarca. Nevertheless, on examination, the patient does not have any significant tenderness in the right upper quadrant. In terms of his LFTs, the patient's ALT is 54 and the AST is 127 and the alkaline phosphatase is 181. His current bilirubin is at 1.6. Note that his LFTs have been improving consistently. His creatinine is down to 1.6 with a BUN of 55 and his sodium level is at 136. White cell count is lower down to 33 with a hemoglobin of 10.7 and platelet count of 173. The patient remains on antibiotics with IV Zosyn. On reevaluation of the stoma, the stoma itself looks pale and there is no output in the colostomy bag. NG tube is in place and output has been in the order of 300 mL overnight. The patient remains in IV heparin for now. 2021, I'm happy to see that the patient is hemodynamically stable. No episodes of ventricular tachycardia overnight. The patient remains on Toprol-XL 25 mg, Mexitil 150 mg by mouth twice a day and he is also on oral amiodarone at a dose of 400 mg twice a day. His current cardiac rhythm is sinus. He is hemodynamically stable. He remains on IV heparin drip. Meanwhile, the patient is on TPN for nutritional support. I'm pleased to see that the patient has gas and positive stool output is colostomy bag. This was noted yesterday. The average output is minimal at this point in time. The patient was offered some clear liquid diet yesterday which he was able to tolerate. No nausea. No emesis. No abdominal pain or distention. No pain in his right quadrant of his abdomen knowing that the patient has a hydropic gallbladder and cholelithiasis. He remains on IV Zosyn regarding a pseudomonal UTI and intra-abdominal coverage following is abdominal surgery. At the same time, the patient's white cell count is still elevated from yesterday and repeat white cell count is pending from today. His white cell count from yesterday was 33. The patient's electrolytes are showing a potassium of 3.0 to be replaced. Creatinine is stable at 1.6 and a BUN of 55. His liver function tests were improving and they're essentially still improving with a AST of 88, ALT of 160, bilirubin is at 1.1. His total protein is at 3.6 with an albumin level of 1.6. Triglyceride levels are 109. Overall fluid balance over the past 24 hours is been +2.4 L. His current IV fluids are 0.9 at 75 and this is to be cut down to KVO. He is on TPN which is running at the rate of 30 mL an hour. He is arousable. He is awake and alert. Follows commands. Overall, quite weak and debilitated. 12/16/2021, I'm seeing the patient for a follow-up. The patient is awake and alert and arousable and answering questions appropriately. He remains quite weak and debilitated. Noted the patient has not had any cardiac arrhythmias. The patient was on IV heparin regarding approximately atrial fibrillation subsequently the patient started having bloody output through the colostomy. The patient accordingly, was taken off the IV heparin. This morning, the output in the colostomy bag is quite bloody and it doesn't look to be melanotic. As such, this could be a GI bleed related to anticoagulation. At evaluation was held and the patient remains in with an empty stable at this point. Most recent blood count is at 9.4 hemoglobin and the patient has a white cell count 25.3. Creatinine stable at 1.47 and the creatinine is slightly improved compared to yesterday. The patient is currently nothing by mouth. Patient is receiving TPN for nutritional support. The patient remains on IV Zosyn regarding Pseudomonas UTI. Using incentive spirometer. No other significant events otherwise for now. General surgeries on the case regarding this ongoing GI bleed. Note that the patient's hemoglobin was as high as 13.8 on 12/13/2021, the patient's hemoglobin dropped down to 8.4 and the patient was given a unit of packed RBC and the subsequent hemoglobin is at 9.4. The white cell count is at 25.3. Platelet count is 145. Creatinine is lower at 1.47. Sodium is at 136. LFTs are normal. The surgical wound site is dry clean and intact. 12/17/2021, seeing the patient for a follow-up. The patient remains lethargic, weak, he had a bout of emesis this morning. Nevertheless, he still has a functional colostomy. No active bleeding in the colostomy site and the patient is currently off anticoagulation. His white cell count remains elevated. No reported abdominal pain. The patient is still on TPN for nutritional support. He reports that he is hungry and he was to proceed with some clear liquid diet. Surgical wound site is dry clean and intact. Hemoglobin is remains stable. Meanwhile, the patient is stable white count and a stable creatinine. The patient's cardiac rhythm is remains stable. The patient remains on a combination of amiodarone 0.5 mg per minute and Mexitil 200 mg 3 times a day and the patient has not had any cardiac arrhythmias over the past 48 hours. Urine output is adequate. The patient developed diffuse edema lower extremity is bilaterally patient was given 20 mg of IV Lasix by nephrology with limited response. He is obviously retaining fluid and third spacing. The patient's hemoglobin is low. Meanwhile, the patient was admitted to 35.3 with hemoglobin of 10.8. BNP is at 43 with a creatinine of 1.4 and sodium level is at 136. LFTs are slightly elevated with overall improvement in the bilirubin is down to 1.0. Alkaline phosphatase is 213 with an ALT of 69 and AST of 62. Objective - Vital Signs Vital signs: Vital Signs Temp 98.5 F 12/17/21 12:00 Pulse 91 12/17/21 14:00 Resp 32 H 12/17/21 14:00 BP 87/63 12/17/21 14:00 Pulse Ox 90 L 12/17/21 14:00 Intake & Output 12/16/21 12/17/21 12/17/21 18:59 06:59 18:59 Intake Total 2431 825 800 Output Total 3047 429 3159 Balance 1101 195 -340 Weight 96.2 kg 96.2 kg Intake: IV 995 825 550 Sodium Chloride 0.9% 1, 20 100 000 ml @ 20 mls/hr IV . Q24H [facility] Rx#:[id number] Sodium Phosphate 15 mmol 975 825 450 Potassium Acetate 40 meq Magnesium Sulfate Syg 4. 06 meq Calcium Gluconate 1 gm In Amino Acids 5 %/ Dextrose 20 % 1,000 ml @ 75 mls/hr IV .BY DURATION [facility] Rx#:[id number] Intake, IV Titration 1036 250 Amount Amiodarone 450 mg In 250 Dextrose 5% in Water 250 ml @ 0.5 MG/MIN 16.667 mls/hr IV .Q15H AN[facility] Rx#: [id number] Sodium Phosphate 15 mmol 1036 Potassium Acetate 40 meq Magnesium Sulfate Syg 4. 06 meq Calcium Gluconate 1 gm In Amino Acids 5 %/ Dextrose 20 % 1,000 ml @ 75 mls/hr IV .BY DURATION ANGEL[facility] Rx#:[id number] Oral 400 Output: Urine 880 630 940 Stool 450 200 Other: Voiding Method Indwelling Catheter Indwelling Catheter Indwelling Catheter - Exam No acute distress, oriented, the patient is pale, and looks chronically ill. Currently on 2 L of oxygen by nasal cannula. Head exam was generally normal. There was no scleral icterus or corneal arcus. Mucous membranes were moist. HEENT examination is grossly unremarkable. NG tube is noted. Neck supple. Full range of motion. No adenopathy thyromegaly or neck vein distention. Cardiovascular examination reveals regular rhythm rate. S1-S2 normal. No S3 or S4. No discernible murmur noted The patient has a pacemaker pocket over the left anterior chest area/AICD pocket. Lungs reveal scattered mild rhonchi. No wheezes or crackles. Breath sounds equal. Saturations 94% on 2 L. Abdomen soft without bowel sounds. A dressing is noted over the recent exploratory laparotomy. There is a colostomy in the left lower quadrant. The colostomy site is quite pale and nonfunctional this point in time. There is no output in the colostomy bag. No direct tenderness in the right upper quadrant. No rebound tenderness no guarding. Surgical wound site is dry clean and intact. Bowel sounds are extensively hypoactive. The abdominal exam is essentially unchanged compared to yesterday. Extremities are intact. No cyanosis clubbing or edema. Skin is without rash or lesion. The patient has a DTI on his coccyx. Neurologic examination is brief but nonfocal. The patient is lethargic but the patient is arousable. The patient is following simple commands. - Labs CBC & Chem 7: 12/17/21 06:03 12/17/21 06:03 Labs: Abnormal Lab Results - Last 24 Hours (Table) 12/16/21 12/16/21 12/17/21 Range/Units 15:59 18:10 00:12 WBC 32.2 H (3.8-10.6) k/uL RBC 3.24 L (4.30-5.90) m/uL Hgb 10.5 L (13.0-17.5) gm/dL Hct 31.8 L (39.0-53.0) % RDW (11.5-15.5) % Neutrophils # (1.3-7.7) k/uL Lymphocytes # (1.0-4.8) k/uL Sodium (137-145) mmol/L Chloride (98-107) mmol/L Carbon Dioxide (22-30) mmol/L BUN (9-20) mg/dL Creatinine (0.66-1.25) mg/dL Glucose (74-99) mg/dL POC Glucose (mg/dL) 264 H 228 H (75-99) mg/dL Calcium (8.4-10.2) mg/dL Phosphorus (2.5-4.5) mg/dL AST (17-59) U/L ALT (4-49) U/L Alkaline Phosphatase (38-126) U/L Total Protein (6.3-8.2) g/dL Albumin (3.5-5.0) g/dL 12/17/21 12/17/21 12/17/21 Range/Units 06:03 06:03 06:07 WBC 35.3 H (3.8-10.6) k/uL RBC 3.46 L (4.30-5.90) m/uL Hgb 10.8 L (13.0-17.5) gm/dL Hct 34.4 L (39.0-53.0) % RDW 15.9 H (11.5-15.5) % Neutrophils # 33.6 H (1.3-7.7) k/uL Lymphocytes # 0.6 L (1.0-4.8) k/uL Sodium 136 L (137-145) mmol/L Chloride 112 H (98-107) mmol/L Carbon Dioxide 20 L (22-30) mmol/L BUN 43 H (9-20) mg/dL Creatinine 1.46 H (0.66-1.25) mg/dL Glucose 227 H (74-99) mg/dL POC Glucose (mg/dL) 205 H (75-99) mg/dL Calcium 6.9 L (8.4-10.2) mg/dL Phosphorus 2.4 L (2.5-4.5) mg/dL AST 62 H (17-59) U/L ALT 69 H (4-49) U/L Alkaline Phosphatase 213 H (38-126) U/L Total Protein 3.8 L (6.3-8.2) g/dL Albumin 1.6 L (3.5-5.0) g/dL 12/17/21 Range/Units 11:43 WBC (3.8-10.6) k/uL RBC (4.30-5.90) m/uL Hgb (13.0-17.5) gm/dL Hct (39.0-53.0) % RDW (11.5-15.5) % Neutrophils # (1.3-7.7) k/uL Lymphocytes # (1.0-4.8) k/uL Sodium (137-145) mmol/L Chloride (98-107) mmol/L Carbon Dioxide (22-30) mmol/L BUN (9-20) mg/dL Creatinine (0.66-1.25) mg/dL Glucose (74-99) mg/dL POC Glucose (mg/dL) 187 H (75-99) mg/dL Calcium (8.4-10.2) mg/dL Phosphorus (2.5-4.5) mg/dL AST (17-59) U/L ALT (4-49) U/L Alkaline Phosphatase (38-126) U/L Total Protein (6.3-8.2) g/dL Albumin (3.5-5.0) g/dL Assessment and Plan Plan: 1 Status post exploratory laparotomy, lysis of adhesions, repair of parastomal hernia, small bowel resection, 12/09/2021. There may be also a component of diverticulitis/ischemic bowel adjacent to the hernia. The patient underwent expiratory laparotomy. The patient is currently nothing by mouth. NG tube is in place. The patient is currently on antibiotics and the patient is currently on IV Zosyn. The patient is currently postop day #8. Repeat CAT scan of the abdomen was noted and there is hydropic gallbladder along with cholelithiasis, LFTs are improving and and the patient's has a functional colostomy at this point in time. The patient did encounter some bleeding from his colostomy and based on that the patient was given a unit of packed RBC and the patient is currently off anticoagulation. Patient remains on TPN for nutritional support. He'll be allowed to have some clear liquid diet on today's evaluation. 2 GI bleeding with subsequent drop in hemoglobin. The patient is currently off IV heparin. General surgeries on the case. The patient is currently nothing by mouth. Patient continues to be on TPN for nutritional support. 3 Pseudomonas aeruginosa urinary tract infection, and likely sepsis. Status post left ureteral stent, for hydronephrosis and renal calculi, 12/09/2021. The patient has some indication for some mild right-sided hydronephrosis and this will be further discussed with urology. He remains on IV Zosyn 4 Wide-complex tachycardia, new since admission.She is known to have ischemic cardiomyopathy with previous history of coronary artery disease and V. tach and the patient has undergone previous VT ablation currently has an AICD in place. The patient is currently on combination of amiodarone drip, Mexitil Noted the patient had a internal rotation of the AICD yesterday and he was having genaro arently episodes of nonsustained VT. He did not receive any shock. The amiodarone is at 0.5 mg per minute. 5 transaminitis, which may relate to underlying cholecystitis. Consider acute cholecystitis. General surgeries on the case. The CAT scan of the abdomen shows hydropic gallbladder with cholelithiasis. LFTs are improving on today's evaluation the patient does not have any right upper quadrant tenderness. 6 acute kidney injury, on top of chronic kidney disease. The patient has likely an underlying chronic stage III kidney disease. 7 acute leukocytosis, white cell count is still elevated. 8 History of CAD, status post heart catheterization with stent placement. 9 history of nonsustained VT, post VT ablation and the patient has a History of AICD placement. 10 History of sleep apnea syndrome. 11 History of hyperlipidemia. 12 History of hypertension. 13 History of colon cancer, status post colectomy with colostomy. 14 History of deep venous thrombosis. 15 paroxysmal atrial fibrillation, currently off IV heparin Plan: The patient is quite debilitated. The patient is getting weak and the patient is also having some low protein and third spacing and edema. The patient will be given 60 mg of IV Lasix 1 and his urine output was monitored. IV to KVO Allow some clear liquid diet today Continue TPN for nutritional support. Monitor hemoglobin and watch for any GI bleeding TPN for nutritional support echocardiogram was suboptimal and no accurate information could be obtained Completed the course of IV Zosyn Monitor WBC count Monitor GI bleed in hemoglobin Medication adjustments done regarding ventricle tachycardia was noted and the patient is currently on , Mexitil and amiodarone IV Monitor LFTs Incentive spirometer Monitor colostomy output still in a critical condition. We'll continue to follow make further recommendations based on his progress.
--- NOTE | 2021-12-17 15:48 | CDI ---
Documentation Clarification Form Date: 12/17/2021 03:12:30 PM From: Lakisha Velásquez RN, CCDS Admit Date: 12/08/2021 11:53:00 AM Patient Name: Ministerio Mcdaniels Visit Number: [id number] Discharge Date: ATTENTION: The Clinical Documentation Specialists (CDI) and [facility] Coding Staff appreciate your assistance in clarifying documentation. Please respond to the clarification below the line at the bottom and electronically sign. The CDI & [facility] Coding staff will review the response and follow-up if needed. Please note: Queries are made part of the Legal Health Record. If you have any questions, please contact the author of this message via ITS. Dr. Juan Arvizu Your patient has a hemoglobin 9.0 and hematocrit level 28.6 on 12/15/21 with prior HGB 10.7, HCT 32.8 ON 12/14/21. Please clarify if there is an additional diagnosis and/or clinical significance related to these lab values. History/Risk Factors: Coronary artery disease, COPD, DVT, Hypertension, Ventricular tachycardia Clinical indicators: 80-year-old female postop day #6 post exploratory laparotomy, lysis of extensive adhesions, repair of paraastomal herna and small bowel resection. Hemoglobin drop from 10.7 to 9.0 with evidence of GI bleeding with blood noted in colostomy bag. She was on IV heparin for atrial fibrillation. Stool occult blood was positive on 12/15/21. 12/15 @ 20:00 HGB 8.4, HCT 26.2 12/15 vital sign: 98/52 62 24 97.5 Treatment: Telemetry/ICU Monitoring Transfuse 1 unit PRBC DC IV Heparin Comprehensive Metabolic panel per orders Is there an additional diagnosis and/or clinical significance related to the above lab result/information? [XX ] GI bleed with acute blood loss anemia secondary to anticoagulation [ ] Unable to determine [ ] Other, please specify (Template Last Revised: November 2020) MTDD
--- NOTE | 2021-12-17 16:25 | CDI ---
Documentation Clarification Form Date: 12/17/2021 03:50:49 PM From: Lakisha Velásquez RN, CCDS Admit Date: 12/08/2021 11:53:00 AM Patient Name: Ministerio Mcdaniels Visit Number: [id number] Discharge Date: ATTENTION: The Clinical Documentation Specialists (CDI) and [facility] Coding Staff appreciate your assistance in clarifying documentation. Please respond to the clarification below the line at the bottom and electronically sign. The CDI & [facility] Coding staff will review the response and follow-up if needed. Please note: Queries are made part of the Legal Health Record. If you have any questions, please contact the author of this message via ITS. Dr. Bert Coulter There is documentation of supply and demand mismatch in the consult on 12/12/21. Additional clarification is requested. History/Risk Factors: Coronary artery disease, paroxysmal atrial fibrillation, Hypertension, Ventricular tachycardia, AICD Clinical Indicators: 80-year-old female present to emergency room she was in atrial fibrillation with rapid ventricular rate. She subsequently converted to sinus rhythm with which her chest pain had resolved, per consult on 12/12/21. Her chest pain is believed related to atrial fibrillation with rapid ventricular rate and supply demand mismatch. 12/08 EKG: Sinus rhythm with first-degree AV block, slightly widened QRS, rate of 70 (per ED assessment) 12/12 Troponin 0.037 12/13 Troponin 0.045, 0.032, 0.035 12/13 ECHO: Suboptimal test with Lumason. Unable to calculate EF Treatment: Telemetry Monitoring Amiodarone 150 MG bolus then 360 MG IV drip per orders 12/12- 12/13, 450 MG IV DRIP 12/13-12/14 Plavix 75 MG PO Daily Lopressor 12.5 MG PO BID (12/08-12/12) Heparin drip per orders 12/12-12/15 Can you please further clarify supply demand mismatch? [ ] Type II UT related to atrial fibrillation with rapid ventricular rate [ ] Demand ischemia without UT secondary to atrial fibrillation with rapid ventricular rate [ ] Other, please specify [ ] Unable to determine (Template Last Revised: November 2020) MTDD
[2021-12-17 17:38] LABS: Glucose,Whole Blood 301 mg/dL (75-99)
[2021-12-17] MEDS: [UNRECOGNIZED DRUG - OTHER] IV SCH ×7 (18:40)
[2021-12-17] MEDS: ATORVASTATIN 40 MG TAB PO SCH (20:09)
[2021-12-17] MEDS: TAMSULOSIN 0.4 MG CAP.ER.24H PO SCH (20:09)
[2021-12-17] MEDS ORDERED: VANCOMYCIN ORAL SOLUTION 250 MG/5 ML BOTTLE PO SCH (22:00)
[2021-12-17] MEDS: VANCOMYCIN ORAL SOLUTION 250 MG/5 ML BOTTLE PO SCH (22:06)
[2021-12-18] MEDS: MEXILETINE 200 MG CAP PO SCH ×4 (00:17→23:45)
[2021-12-18 00:22] LABS: Glucose,Whole Blood 174 mg/dL (75-99)
[2021-12-18] MEDS: INSULIN ASPART (NovoLOG) 100 UNIT/ML VIAL SQ SCH ×5 (00:24→23:45)
--- NOTE | 2021-12-18 06:09 | P.PN ---
Subjective HISTORY OF PRESENTING ILLNESS Ventricular tachycardia The patient is an 80-year-old gentleman with a past medical history significant for CAD and prior stenting of the RCA and LAD as well as ischemic cardiomyopathy and status post AICD and also status post VT ablation in 2020 as well as hypertension and dyslipidemia was admitted to the hospital with abdominal discomfort and underwent exploratory laparotomy with lysis of adhesion and repair of parastomal hernia and small bowel resection. The patient was transferred to the intensive care unit yesterday because he did have an episode of wide complex tachycardia to me looks like ventricular tachycardia. He was started on amiodarone IV as well as mexiletine. The patient was seen this morning. He did have an episode of wide-complex tachycardia seems to be consistent with SVT. He was started back on amiodarone IV after he was on amiodarone by mouth. I'm going to increase the dose of m exiletine. He seems overall lethargic this morning. Hemodynamically he is stable with a soft blood pressure. Currently he is in sinus rhythm. Heparin is on hold at this point in view of the possible GI bleeding and drop in hemoglobin record one unit of packed RBC. His hemoglobin this morning is a stable. 12/18 Patient seen and examined. Patient has been off of levophed for the last 24 hours. He is getting TPN and maintaining good urine output. He does have significant lower extremity edema however appears fairly stable, likely related to "third spacing "with extremely low albumin 1.6 and protein calorie malnutrition. He denies any chest pain or pressure. He is still having frequent nausea and dry heaves. Denies much output from his ostomy. He was noted to be positive for C. diff. No further ventricular tachycardia noted. His amiodarone drip is and will be transitioned over to oral medications today if he is tolerating oral meds. PHYSICAL EXAMINATION Vital signs reviewed. CONSTITUTIONAL: No apparent distress, chronically ill-appearing HEENT: Head is normocephalic. Pupils are equal, round. Sclerae anicteric. Mucous membranes of the mouth are moist. No JVD. No carotid bruit. CHEST EXAMINATION: Lungs are clear to auscultation. Decreased breath sounds at bases HEART EXAMINATION: Regular rate and rhythm. S1, S2 heard. No murmurs, gallops or rub. ABDOMEN: Soft, nontender. Positive bowel sounds. EXTREMITIES: 2+ peripheral pulses, + lower extremity edema NEUROLOGIC EXAMINATION: Patient is awake, alert and oriented x3. Assessment #1 status post exploratory laparotomy #2 sustained ventricular tachycardia #3 coronary artery disease #4 ischemic cardiomyopathy #5 status post VT ablation #6 chronic systolic heart failure #7 Concern of GI bleed with blood coming from ostomy previously Plan Continue to monitor electrolytes closely, potassium and magnesium. He has finished his IV amiodarone and we will transition him back to oral amiodarone as well as the mexiletine. Hold anticoagulation given recent surgery and monitor his GI status. Patient was found to have C. diff and further treatment per primary team. He does have significant edema however likely mainly related to third spacing and significant protein calorie malnutrition. Continue to monitor closely and patient may need additional doses of diuretics however we will continue with current therapy. Objective - Vital Signs Vital signs: Vital Signs Temp 98.6 F 12/18/21 00:00 Pulse 78 12/18/21 04:00 Resp 28 H 12/18/21 04:00 BP 97/54 12/18/21 04:00 Pulse Ox 95 12/18/21 04:00 Intake & Output 12/17/21 12/17/21 12/18/21 06:59 18:59 06:59 Intake Total 825 1310 885 Output Total 630 1600 955 Balance 195 -290 -70 Weight 96.2 kg 96.2 kg Intake: IV 825 1060 785 Sodium Chloride 0.9% 1, 160 110 000 ml @ 20 mls/hr IV . Q24H [facility] Rx#:[id number] Sodium Phosphate 15 mmol 825 900 675 Potassium Acetate 40 meq Magnesium Sulfate Syg 4. 06 meq Calcium Gluconate 1 gm In Amino Acids 5 %/ Dextrose 20 % 1,000 ml @ 75 mls/hr IV .BY DURATION [facility] Rx#:[id number] Intake, IV Titration 250 Amount Amiodarone 450 mg In 250 Dextrose 5% in Water 250 ml @ 0.5 MG/MIN 16.667 mls/hr IV .Q15H [facility] Rx#: [id number] Oral 100 Output: Urine 630 1300 355 Stool 300 600 Other: Voiding Method Indwelling Catheter Indwelling Catheter Indwelling Catheter - Labs CBC & Chem 7: 12/17/21 06:03 12/17/21 06:03 Labs: Abnormal Lab Results - Last 24 Hours (Table) 12/17/21 12/17/21 12/17/21 Range/Units 06:03 06:03 06:03 WBC 35.3 H (3.8-10.6) k/uL RBC 3.46 L (4.30-5.90) m/uL Hgb 10.8 L (13.0-17.5) gm/dL Hct 34.4 L (39.0-53.0) % RDW 15.9 H (11.5-15.5) % Neutrophils # 33.6 H (1.3-7.7) k/uL Lymphocytes # 0.6 L (1.0-4.8) k/uL Sodium 136 L (137-145) mmol/L Chloride 112 H (98-107) mmol/L Carbon Dioxide 20 L (22-30) mmol/L BUN 43 H (9-20) mg/dL Creatinine 1.46 H (0.66-1.25) mg/dL Glucose 227 H (74-99) mg/dL POC Glucose (mg/dL) (75-99) mg/dL Calcium 6.9 L (8.4-10.2) mg/dL Phosphorus 2.4 L (2.5-4.5) mg/dL AST 62 H (17-59) U/L ALT 69 H (4-49) U/L Alkaline Phosphatase 213 H (38-126) U/L Total Protein 3.8 L (6.3-8.2) g/dL Albumin 1.6 L (3.5-5.0) g/dL Procalcitonin 0.79 H (0.02-0.09) ng/mL C. difficile (EIA) Intrp (Negative) 12/17/21 12/17/21 12/17/21 Range/Units 06:07 11:43 17:36 WBC (3.8-10.6) k/uL RBC (4.30-5.90) m/uL Hgb (13.0-17.5) gm/dL Hct (39.0-53.0) % RDW (11.5-15.5) % Neutrophils # (1.3-7.7) k/uL Lymphocytes # (1.0-4.8) k/uL Sodium (137-145) mmol/L Chloride (98-107) mmol/L Carbon Dioxide (22-30) mmol/L BUN (9-20) mg/dL Creatinine (0.66-1.25) mg/dL Glucose (74-99) mg/dL POC Glucose (mg/dL) 205 H 187 H 301 H (75-99) mg/dL Calcium (8.4-10.2) mg/dL Phosphorus (2.5-4.5) mg/dL AST (17-59) U/L ALT (4-49) U/L Alkaline Phosphatase (38-126) U/L Total Protein (6.3-8.2) g/dL Albumin (3.5-5.0) g/dL Procalcitonin (0.02-0.09) ng/mL C. difficile (EIA) Intrp (Negative) 12/17/21 12/18/21 Range/Units 18:45 00:20 WBC (3.8-10.6) k/uL RBC (4.30-5.90) m/uL Hgb (13.0-17.5) gm/dL Hct (39.0-53.0) % RDW (11.5-15.5) % Neutrophils # (1.3-7.7) k/uL Lymphocytes # (1.0-4.8) k/uL Sodium (137-145) mmol/L Chloride (98-107) mmol/L Carbon Dioxide (22-30) mmol/L BUN (9-20) mg/dL Creatinine (0.66-1.25) mg/dL Glucose (74-99) mg/dL POC Glucose (mg/dL) 174 H (75-99) mg/dL Calcium (8.4-10.2) mg/dL Phosphorus (2.5-4.5) mg/dL AST (17-59) U/L ALT (4-49) U/L Alkaline Phosphatase (38-126) U/L Total Protein (6.3-8.2) g/dL Albumin (3.5-5.0) g/dL Procalcitonin (0.02-0.09) ng/mL C. difficile (EIA) Intrp Positive A (Negative)
[2021-12-18 06:27] LABS: Albumin 1.7 g/dL (3.5-5.0); Magnesium 2.1 mg/dL (1.6-2.3); Phosphorus 3.6 mg/dL (2.5-4.5); Total Bilirubin 0.9 mg/dL (0.2-1.3); Total Protein 3.9 g/dL (6.3-8.2)
[2021-12-18] MEDS: NOREPINEPHRINE 4 MG in SODIUM CHLORIDE 0.9% 250 ML IV SCH (08:32)
[2021-12-18] MEDS: SPIRONOLACTONE 25 MG TAB PO SCH (08:49)
[2021-12-18] MEDS: FINASTERIDE 5 MG TAB PO SCH (08:49)
[2021-12-18] MEDS: FAMOTIDINE 20 MG/2 ML VIAL IV SCH (08:49)
[2021-12-18] MEDS: VANCOMYCIN ORAL SOLUTION 250 MG/5 ML BOTTLE PO SCH ×4 (08:50→21:32)
--- NOTE | 2021-12-18 10:12 | P.PN ---
Subjective Progress Note Date: 12/18/21 Pt tolerating CLD. Has C diff, started on oral vancomycin. Gen: awake, alert HEENT: normocephalic, atraumatic, good hearing acuity, moist mucous membranes Resp: good air exchange, breathing comfortably with no accessory muscle use CVS: good distal perfusion x 4, GI: soft, NTTP, ND : no SPT, no CVAT, fuentes catheter is present MSK: no pitting edema, no clubbing Neuro: non-focal, moving all extremities Psych: cooperative, euthymic mood Assessment/plan: # sepsis secondary to urinary company urinary tract infection -pseudomonas # obstructive uropathy s/p L nephroureteral stent on 12/09 # small bowel obstruction can be secondary to underlying adhesions versus parastomal hernia s/p small bowel resection on 12/09 # sustained ventricular tachycardia # C diff infection # coronary disease status post stent 2 # hyperlipidemia # essential hypertension # CKD Plan: -Admit to medicine, telemetry -Aspiration/fall precaution/hob30 -Urine cultures reviewed showing Pseudomonas. Urine cultures positive susceptible to Zosyn which we will continue to complete 5 days, completed 12/16 -Stent placed by urology needs outpatient follow-up as well. -FLD and TPN day 4, consideration of d/c'ing TPN, defer to surgery -on oral mexilitine, on amiodarone gtt, can consider low dose metoprolol, defer to cardiology -off of pressors -started oral vancomycin -rec'd 1U PRBC on 12/16 Objective - Vital Signs Vital signs: Vital Signs Temp 98.6 F 12/18/21 08:00 Pulse 80 12/18/21 10:00 Resp 28 H 12/18/21 10:00 BP 97/53 12/18/21 10:00 Pulse Ox 93 L 12/18/21 10:00 Intake & Output 12/17/21 12/18/21 12/18/21 18:59 06:59 18:59 Intake Total 1310 1205 340 Output Total 1600 1295 285 Balance -290 -90 55 Weight 96.2 kg 96.4 kg Intake: IV 1060 955 340 Sodium Chloride 0.9% 1, 160 130 40 000 ml @ 20 mls/hr IV . Q24H [facility] Rx#:[id number] Sodium Phosphate 15 mmol 900 825 300 Potassium Acetate 40 meq Magnesium Sulfate Syg 4. 06 meq Calcium Gluconate 1 gm In Amino Acids 5 %/ Dextrose 20 % 1,000 ml @ 75 mls/hr IV .BY DURATION [facility] Rx#:[id number] Intake, IV Titration 250 Amount Amiodarone 450 mg In 250 Dextrose 5% in Water 250 ml @ 0.5 MG/MIN 16.667 mls/hr IV .Q15H [facility] Rx#: [id number] Oral 250 Output: Urine 1300 445 235 Stool 300 850 50 Other: Voiding Method Indwelling Catheter Indwelling Catheter Indwelling Catheter - Labs CBC & Chem 7: 12/17/21 06:03 12/18/21 05:51 Labs: Abnormal Lab Results - Last 24 Hours (Table) 12/17/21 12/17/21 12/17/21 Range/Units 06:03 11:43 17:36 Sodium (137-145) mmol/L Chloride (98-107) mmol/L Carbon Dioxide (22-30) mmol/L BUN (9-20) mg/dL Creatinine (0.66-1.25) mg/dL Glucose (74-99) mg/dL POC Glucose (mg/dL) 187 H 301 H (75-99) mg/dL Calcium (8.4-10.2) mg/dL AST (17-59) U/L ALT (4-49) U/L Alkaline Phosphatase (38-126) U/L Total Protein (6.3-8.2) g/dL Albumin (3.5-5.0) g/dL Procalcitonin 0.79 H (0.02-0.09) ng/mL C. difficile (EIA) Intrp (Negative) 12/17/21 12/18/21 12/18/21 Range/Units 18:45 00:20 05:51 Sodium 134 L (137-145) mmol/L Chloride 111 H (98-107) mmol/L Carbon Dioxide 19 L (22-30) mmol/L BUN 51 H (9-20) mg/dL Creatinine 1.76 H (0.66-1.25) mg/dL Glucose 235 H (74-99) mg/dL POC Glucose (mg/dL) 174 H (75-99) mg/dL Calcium 7.0 L (8.4-10.2) mg/dL AST 67 H (17-59) U/L ALT 74 H (4-49) U/L Alkaline Phosphatase 186 H (38-126) U/L Total Protein 3.9 L (6.3-8.2) g/dL Albumin 1.7 L (3.5-5.0) g/dL Procalcitonin (0.02-0.09) ng/mL C. difficile (EIA) Intrp Positive A (Negative)
[2021-12-18 10:18] LABS: Basophils # (A) 0.2 k/uL (0-0.2); Basophils % (A) 1 %; Eosinophils # (A) 0.1 k/uL (0-0.7); Eosinophils % (A) 0 %; HCT 36.1 % (39.0-53.0); HGB 9.6 gm/dL (13.0-17.5); Hypochromasia Marked; Lymphocytes # (A) 0.5 k/uL (1.0-4.8); Lymphocytes % (A) 1 %; MCH 27.3 pg (25.0-35.0); MCHC 26.7 g/dL (31.0-37.0); MCV 102.5 fL (80.0-100.0); Macrocytosis Slight; Mean Platelet Volume 11.7; Monocytes # (A) 1.3 k/uL (0-1.0); Monocytes % (A) 4 %; Neutrophils # (A) 31.7 k/uL (1.3-7.7); Neutrophils % (A) 93 %; Platelet Count 224 k/uL (150-450); RBC 3.52 m/uL (4.30-5.90); RDW 14.8 % (11.5-15.5)
--- NOTE | 2021-12-18 10:56 | P.PN ---
Progress Note - Text Progress Note Date: 12/18/21 Patient feels better. His stool is positive for C. diff. He is currently receiving treatment. On exam vital signs appear stable. Abdomen soft. There is some minimal output through the colostomy. Status post repair of parastomal hernia. Patient elevated white count is most likely due to his C. diff infection. He'll continue receive supportive care.
[2021-12-18 11:54] LABS: Glucose,Whole Blood 261 mg/dL (75-99)
[2021-12-18] MEDS: SODIUM PHOSPHATE IV SCH ×7 (12:36)
[2021-12-18] MEDS: POTASSIUM ACETATE IV SCH ×7 (12:36)
[2021-12-18] MEDS: [UNRECOGNIZED DRUG - OTHER] IV SCH ×7 (12:36)
[2021-12-18] MEDS: MAGNESIUM SULFATE IV SCH ×7 (12:36)
[2021-12-18] MEDS: SODIUM CHLORIDE 0.9% 1,000 ML IV SCH (12:37)
--- NOTE | 2021-12-18 12:56 | P.PN ---
Subjective Progress Note Date: 12/18/21 80-year-old male who was initially seen in the emergency department, on 12/08/2021, for nausea and vomiting. For a week or so prior to admission, the patient admits to ongoing nausea and vomiting. He apparently told the ER physician that anything he eats, he vomits. He was not able to take his usual m edications. The patient was recently diagnosed with an obstructive kidney stone, and was scheduled for a ureteral stent. He apparently denied fever when he was in the emergency department. He does have some minimal stool output from his colostomy. He denied any abdominal pain. We are asked to see him today, after his been in the hospital since December 08. Apparently he was found to have hypotension, and wasn't looking very good, and we decided to move him to the intensive care unit for further monitoring and management. 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 Also, on December 09, the patient underwent an exploratory laparotomy, extensive lysis of adhesions, and repair of parastomal hernia. The patient also had a small bowel resection. This was done because of bowel obstruction. Urine sampling from December 08 revealed evidence of pseudomonas aeruginosa. White count 22.68, hemoglobin 10.9, hematocrit 33.7, and platelet count 219,000. Sodium 141, potassium 3.8, chlorides 111, CO2 14, anion gap 17, BUN 38, and creatinine 1.8. AST was 387, and ALT was 467. Those are both increasing. Also, urine sampling from December 18 revealed what appears to be a urinary tract infection. Chest x-ray back from December 08 did not show anything acute. Cardiology saw the patient in consultation and ordered amiodarone, lidocaine, and Lopressor. EKG done on 5 N., revealed a wide-complex tachycardia, and a new bundle branch. history significant for CAD and prior stenting of the RCA and LAD as well as ischemic cardiomyopathy and status post AICD and also status post VT ablation in 202012/13/2021, the patient is in the intensive care unit. His current cardiac rhythm is sinus. He is having runs of episodic atrial fibrillation. There is still having episodes of nonsustained ventricular tachycardia. The patient was seen by cardiology. He remains on amiodarone drip which is running at 0.5 mcg/kg per minute and the patient remains on IV heparin. This morning, cardiology evaluated the patient and put him on a beta christelle and the patient is currently on Toprol-XL 25 mg twice a day and the patient was also started on Mexitil at a dose of 150 milligrams by mouth twice a day. The patient's blood pressure currently is at 124/75. He is on no pressors. He is receiving lactated Ringer at the rate of 20 mL an hour. He is free of any chest pain. His blood work shows a BUN of 57 with a creatinine of 1.8 and the creatinine is at 3.8 and the sodium level is at 140. Normal potassium of 3.8. Lactic acid level was down to 1.8. Troponins were 0.04 and 0.03 respectively 2. His pro- calcitonin level was 1.1. Note that his white cell count is at 38 which is comparable to yesterday and the patient also has a hemoglobin of 13.8 and a platelet count of 190. As mentioned, he had a pseudomonal urinary tract infection. The patient will remains on IV Zosyn. Echo was obtained this morning and the results are still pending for now. His liver function tests were also abnormal. His AST of 157 and ALT of 313 and an alkaline phosphatase of 309. His bilirubin is currently at 1.9. Ultrasound of the liver that was obtained on 12/11/2021 showed limitation due to his body habitus and bowel gas pattern. There was cholelithiasis with distention of the gallbladder possibly indicating an acute cholecystitis. There was still evidence of hydronephrosis of the right kidney stone measuring 1.5 cm in the right kidney was mildly hydro nephrotic. His original CAT scan of the abdomen and pelvis that was on 12/08/2021 showed high-grade mechanical small bowel obstruction with transition point in the left lower quadrant in addition to a parastomal hernia. There was also significant wall thickening of the colon just proximal to the colostomy and surrounding area of an acute inflammatory change with her underlying colitis/diverticulitis not being completely excluded. There was also left distal ureteral obstruction with stone and moderate degree of left-sided hydroureter and hydronephrosis. He has NGT and the output was 400 cc over 12 hour 12/14 2021, the patient is being seen in the intensive care unit. This morning, the patient is in a normal sinus rhythm. He did not have any wide-complex tachycardic events overnight. He is currently on a combination of Toprol-XL 25 mg twice a day, Mexitil 150 mg by mouth twice a day and the patient is starting on by mouth amiodarone coming off the amiodarone drip. I was quite concerned about his abdominal situation yesterday and there was a concern of a acute cholecystitis based on the ultrasound findings. There was also concern about ongoing mechanical obstruction as the colostomy stoma looked pale. Based on that, CAT scan of the abdomen was obtained yesterday and the results were discussed with the general surgeon. In summary, a detailed description of the abdominal findings was given in the CAT scan. Based on my understanding with the surgeons evaluation, the patient still has an area of a parastomal hernia which is fat filled and there is some ongoing ileus, unsure of there is any ongoing mechanical obstruction of the small bowel. There is an expected outcome following surgery. NG tube was in place and the patient had a moderate size hiatal hernia. There was contrast backing up into the esophagus. At the same time, there was a foci of air in the right upper quadrant which could be potentially postsurgical in nature. As such, there was no indication for any acute abdomen. There was generalized anasarca and moderate degree of abdominal and pelvic ascites. There was also a small and new bilateral pleural effusion more so on the right compared to the left lung with some adjacent atelectasis and some areas of patchy groundglass pulmonary infiltrates in lung bases and interval placement of a left ureteral stent and this was done by urology for obstructive uropathy. Gallbladder itself was hydropic with cholelithiasis. There was some possible surrounding inflammation versus changes related to anasarca. Nevertheless, on examination, the patient does not have any significant tenderness in the right upper quadrant. In terms of his LFTs, the patient's ALT is 54 and the AST is 127 and the alkaline phosphatase is 181. His current bilirubin is at 1.6. Note that his LFTs have been improving consistently. His creatinine is down to 1.6 with a BUN of 55 and his sodium level is at 136. White cell count is lower down to 33 with a hemoglobin of 10.7 and platelet count of 173. The patient remains on antibiotics with IV Zosyn. On reevaluation of the stoma, the stoma itself looks pale and there is no output in the colostomy bag. NG tube is in place and output has been in the order of 300 mL overnight. The patient remains in IV heparin for now. 2021, I'm happy to see that the patient is hemodynamically stable. No episodes of ventricular tachycardia overnight. The patient remains on Toprol-XL 25 mg, Mexitil 150 mg by mouth twice a day and he is also on oral amiodarone at a dose of 400 mg twice a day. His current cardiac rhythm is sinus. He is hemodynamically stable. He remains on IV heparin drip. Meanwhile, the patient is on TPN for nutritional support. I'm pleased to see that the patient has gas and positive stool output is colostomy bag. This was noted yesterday. The average output is minimal at this point in time. The patient was offered some clear liquid diet yesterday which he was able to tolerate. No nausea. No emesis. No abdominal pain or distention. No pain in his right quadrant of his abdomen knowing that the patient has a hydropic gallbladder and cholelithiasis. He remains on IV Zosyn regarding a pseudomonal UTI and intra-abdominal coverage following is abdominal surgery. At the same time, the patient's white cell count is still elevated from yesterday and repeat white cell count is pending from today. His white cell count from yesterday was 33. The patient's electrolytes are showing a potassium of 3.0 to be replaced. Creatinine is stable at 1.6 and a BUN of 55. His liver function tests were improving and they're essentially still improving with a AST of 88, ALT of 160, bilirubin is at 1.1. His total protein is at 3.6 with an albumin level of 1.6. Triglyceride levels are 109. Overall fluid balance over the past 24 hours is been +2.4 L. His current IV fluids are 0.9 at 75 and this is to be cut down to KVO. He is on TPN which is running at the rate of 30 mL an hour. He is arousable. He is awake and alert. Follows commands. Overall, quite weak and debilitated. 12/16/2021, I'm seeing the patient for a follow-up. The patient is awake and alert and arousable and answering questions appropriately. He remains quite weak and debilitated. Noted the patient has not had any cardiac arrhythmias. The patient was on IV heparin regarding approximately atrial fibrillation subsequently the patient started having bloody output through the colostomy. The patient accordingly, was taken off the IV heparin. This morning, the output in the colostomy bag is quite bloody and it doesn't look to be melanotic. As such, this could be a GI bleed related to anticoagulation. At evaluation was held and the patient remains in with an empty stable at this point. Most recent blood count is at 9.4 hemoglobin and the patient has a white cell count 25.3. Creatinine stable at 1.47 and the creatinine is slightly improved compared to yesterday. The patient is currently nothing by mouth. Patient is receiving TPN for nutritional support. The patient remains on IV Zosyn regarding Pseudomonas UTI. Using incentive spirometer. No other significant events otherwise for now. General surgeries on the case regarding this ongoing GI bleed. Note that the patient's hemoglobin was as high as 13.8 on 12/13/2021, the patient's hemoglobin dropped down to 8.4 and the patient was given a unit of packed RBC and the subsequent hemoglobin is at 9.4. The white cell count is at 25.3. Platelet count is 145. Creatinine is lower at 1.47. Sodium is at 136. LFTs are normal. The surgical wound site is dry clean and intact. 12/17/2021, seeing the patient for a follow-up. The patient remains lethargic, weak, he had a bout of emesis this morning. Nevertheless, he still has a functional colostomy. No active bleeding in the colostomy site and the patient is currently off anticoagulation. His white cell count remains elevated. No reported abdominal pain. The patient is still on TPN for nutritional support. He reports that he is hungry and he was to proceed with some clear liquid diet. Surgical wound site is dry clean and intact. Hemoglobin is remains stable. Meanwhile, the patient is stable white count and a stable creatinine. The patient's cardiac rhythm is remains stable. The patient remains on a combination of amiodarone 0.5 mg per minute and Mexitil 200 mg 3 times a day and the patient has not had any cardiac arrhythmias over the past 48 hours. Urine output is adequate. The patient developed diffuse edema lower extremity is bilaterally patient was given 20 mg of IV Lasix by nephrology with limited response. He is obviously retaining fluid and third spacing. The patient's hemoglobin is low. Meanwhile, the patient was admitted to 35.3 with hemoglobin of 10.8. BNP is at 43 with a creatinine of 1.4 and sodium level is at 136. LFTs are slightly elevated with overall improvement in the bilirubin is down to 1.0. Alkaline phosphatase is 213 with an ALT of 69 and AST of 62. 12/18/2021, condition is essentially unchanged and the patient continues to be lethargic. He is arousable. He is still having episodes of emesis and nausea. Note that his white cell count remains elevated and the patient 1 further had evaluation and the stool came back positive for C. diff and this was cultured from the colostomy. No evidence of any acute bleeding from the colostomy site. Hemoglobin is remains stable. Nevertheless, the patient has a component of C. diff colitis. Zosyn has been discontinued and the patient was started on oral vancomycin to 50 mg 4 times a day. Remains on TPN for nutritional support. Cardiac rhythm remains sinus. He has been switched to oral amiodarone. He is also on oral Mexitil. No evidence of any ventricular tachycardia. He does have third spacing and edema in all 4 extremities. The patient is receiving Dilaudid for pain control. The patient has hypoproteinemia and hyperlipidemia. The patient's creatinine was up to 1.8. He does have a component of non-anion gap metabolic acidosis with a serum bicarb of 19. Creatinine is at 1.76 with a mean of 51. Leukocytosis 51. Slightly elevated on today's evaluation. White cell count is still elevated at 34. Objective - Vital Signs Vital signs: Vital Signs Temp 98.6 F 12/18/21 08:00 Pulse 82 12/18/21 11:00 Resp 27 H 12/18/21 11:00 BP 99/57 12/18/21 11:00 Pulse Ox 92 L 12/18/21 11:00 Intake & Output 12/17/21 12/18/21 12/18/21 18:59 06:59 18:59 Intake Total 1310 1205 1378 Output Total 1600 1295 285 Balance -290 -90 1093 Weight 96.2 kg 96.4 kg Intake: IV 1060 955 340 Sodium Chloride 0.9% 1, 160 130 40 000 ml @ 20 mls/hr IV . Q24H [facility] Rx#:[id number] Sodium Phosphate 15 mmol 900 825 300 Potassium Acetate 40 meq Magnesium Sulfate Syg 4. 06 meq Calcium Gluconate 1 gm In Amino Acids 5 %/ Dextrose 20 % 1,000 ml @ 75 mls/hr IV .BY DURATION [facility] Rx#:[id number] Intake, IV Titration 250 1038 Amount Amiodarone 450 mg In 250 Dextrose 5% in Water 250 ml @ 0.5 MG/MIN 16.667 mls/hr IV .Q15H [facility] Rx#: [id number] Sodium Phosphate 21 mmol 1038 Potassium Acetate 40 meq Magnesium Sulfate Syg 4. 06 meq Calcium Gluconate 1 gm In Amino Acids 5 %/ Dextrose 20 % 1,000 ml @ 75 mls/hr IV .BY DURATION ANG[facility] Rx#:[id number] Oral 250 Output: Urine 1300 445 235 Stool 300 850 50 Other: Voiding Method Indwelling Catheter Indwelling Catheter Indwelling Catheter - Exam No acute distress, oriented, the patient is pale, and looks chronically ill. Currently on 2 L of oxygen by nasal cannula. Head exam was generally normal. There was no scleral icterus or corneal arcus. Mucous membranes were moist. HEENT examination is grossly unremarkable. NG tube is noted. Neck supple. Full range of motion. No adenopathy thyromegaly or neck vein distention. Cardiovascular examination reveals regular rhythm rate. S1-S2 normal. No S3 or S4. No discernible murmur noted The patient has a pacemaker pocket over the left anterior chest area/AICD pocket. Lungs reveal scattered mild rhonchi. No wheezes or crackles. Breath sounds equal. Saturations 94% on 2 L. Abdomen soft without bowel sounds. A dressing is noted over the recent exploratory laparotomy. There is a colostomy in the left lower quadrant. The colostomy site is quite pale and nonfunctional this point in time. There is no output in the colostomy bag. No direct tenderness in the right upper quadrant. No rebound tenderness no guarding. Surgical wound site is dry clean and intact. Bowel sounds are extensively hypoactive. The abdominal exam is essentially unchanged compared to yesterday. Extremities are intact. No cyanosis clubbing and there is edema in all 4 extremity especially in the legs and there is some minimal scrotal edema at this point in time. Skin is without rash or lesion. The patient has a DTI on his coccyx. Neurologic examination is brief but nonfocal. The patient is lethargic but the patient is arousable. The patient is following simple commands. - Labs CBC & Chem 7: 12/18/21 05:51 12/18/21 05:51 Labs: Abnormal Lab Results - Last 24 Hours (Table) 12/17/21 12/17/21 12/17/21 Range/Units 06:03 17:36 18:45 WBC (3.8-10.6) k/uL RBC (4.30-5.90) m/uL Hgb (13.0-17.5) gm/dL Hct (39.0-53.0) % MCV (80.0-100.0) fL MCHC (31.0-37.0) g/dL Neutrophils # (1.3-7.7) k/uL Lymphocytes # (1.0-4.8) k/uL Monocytes # (0-1.0) k/uL Sodium (137-145) mmol/L Chloride (98-107) mmol/L Carbon Dioxide (22-30) mmol/L BUN (9-20) mg/dL Creatinine (0.66-1.25) mg/dL Glucose (74-99) mg/dL POC Glucose (mg/dL) 301 H (75-99) mg/dL Calcium (8.4-10.2) mg/dL AST (17-59) U/L ALT (4-49) U/L Alkaline Phosphatase (38-126) U/L Total Protein (6.3-8.2) g/dL Albumin (3.5-5.0) g/dL Procalcitonin 0.79 H (0.02-0.09) ng/mL C. difficile (EIA) Intrp Positive A (Negative) 12/18/21 12/18/21 12/18/21 Range/Units 00:20 05:51 05:51 WBC 34.0 H (3.8-10.6) k/uL RBC 3.52 L (4.30-5.90) m/uL Hgb 9.6 L (13.0-17.5) gm/dL Hct 36.1 L (39.0-53.0) % MCV 102.5 H (80.0-100.0) fL MCHC 26.7 L (31.0-37.0) g/dL Neutrophils # 31.7 H (1.3-7.7) k/uL Lymphocytes # 0.5 L (1.0-4.8) k/uL Monocytes # 1.3 H (0-1.0) k/uL Sodium 134 L (137-145) mmol/L Chloride 111 H (98-107) mmol/L Carbon Dioxide 19 L (22-30) mmol/L BUN 51 H (9-20) mg/dL Creatinine 1.76 H (0.66-1.25) mg/dL Glucose 235 H (74-99) mg/dL POC Glucose (mg/dL) 174 H (75-99) mg/dL Calcium 7.0 L (8.4-10.2) mg/dL AST 67 H (17-59) U/L ALT 74 H (4-49) U/L Alkaline Phosphatase 186 H (38-126) U/L Total Protein 3.9 L (6.3-8.2) g/dL Albumin 1.7 L (3.5-5.0) g/dL Procalcitonin (0.02-0.09) ng/mL C. difficile (EIA) Intrp (Negative) 12/18/21 Range/Units 11:51 WBC (3.8-10.6) k/uL RBC (4.30-5.90) m/uL Hgb (13.0-17.5) gm/dL Hct (39.0-53.0) % MCV (80.0-100.0) fL MCHC (31.0-37.0) g/dL Neutrophils # (1.3-7.7) k/uL Lymphocytes # (1.0-4.8) k/uL Monocytes # (0-1.0) k/uL Sodium (137-145) mmol/L Chloride (98-107) mmol/L Carbon Dioxide (22-30) mmol/L BUN (9-20) mg/dL Creatinine (0.66-1.25) mg/dL Glucose (74-99) mg/dL POC Glucose (mg/dL) 261 H (75-99) mg/dL Calcium (8.4-10.2) mg/dL AST (17-59) U/L ALT (4-49) U/L Alkaline Phosphatase (38-126) U/L Total Protein (6.3-8.2) g/dL Albumin (3.5-5.0) g/dL Procalcitonin (0.02-0.09) ng/mL C. difficile (EIA) Intrp (Negative) Assessment and Plan Plan: 1 Status post exploratory laparotomy, lysis of adhesions, repair of parastomal hernia, small bowel resection, 12/09/2021. There may be also a component of diverticulitis/ischemic bowel adjacent to the hernia. The patient underwent expiratory laparotomy. The patient is currently nothing by mouth. NG tube is in place. The patient is currently on antibiotics and the patient is currently on IV Zosyn. The patient is currently postop day #9. Repeat CAT scan of the abdomen was noted and there is hydropic gallbladder along with cholelithiasis, LFTs are improving and and the patient's has a functional colostomy at this point in time. The patient did encounter some bleeding from his colostomy and based on that the patient was given a unit of packed RBC and the patient is currently off anticoagulation. Patient remains on TPN for nutritional support. Subsequently, the bleeding stopped and the patient is currently not having any signs of GI bleed. Nevertheless, the patient developed leukocytosis and further investigation revealed that the patient was positive for some stool C. diff. At that point, the patient was started on oral vancomycin. 2 GI bleeding with subsequent drop in hemoglobin , currently inactive in stable 3 Pseudomonas aeruginosa urinary tract infection, and likely sepsis. Status post left ureteral stent, for hydronephrosis and renal calculi, 12/09/2021. The patient has some indication for some mild right-sided hydronephrosis and this will be further discussed with urology. The patient completed the course of IV Zosyn and the patient was taken off antibiotics and the patient developed C. diff colitis 4 Wide-complex tachycardia, new since admission.She is known to have ischemic cardiomyopathy with previous history of coronary artery disease and V. tach and the patient has undergone previous VT ablation currently has an AICD in place. The patient is currently on combination of amiodarone and oral Mexitil. Cardiac rhythm remains sinus. No evidence of any ventricular tachycardia. 5 transaminitis, which may relate to underlying cholecystitis. Consider acute cholecystitis. General surgeries on the case. The CAT scan of the abdomen shows hydropic gallbladder with cholelithiasis. LFTs are improving on today's evaluation the patient does not have any right upper quadrant tenderness. 6 acute kidney injury, on top of chronic kidney disease. The patient has likely an underlying chronic stage III kidney disease. 7 acute leukocytosis, white cell count is still elevated. This is likely secondary to C. diff colitis. 8 History of CAD, status post heart catheterization with stent placement. 9 history of nonsustained VT, post VT ablation and the patient has a History of AICD placement. 10 History of sleep apnea syndrome. 11 History of hyperlipidemia. 12 History of hypertension. 13 History of colon cancer, status post colectomy with colostomy. 14 History of deep venous thrombosis. 15 paroxysmal atrial fibrillation, currently off IV heparin , current rhythm is sinus 16 peripheral edema and third spacing secondary to hypoproteinemia 17 anion gap metabolic acidosis\ Plan: This continued IV Zosyn Give the patient on vancomycin Monitor white cell count Monitor diarrhea Watch for any signs of GI bleed Continue the oral Vanco mycin Continue the oral Mexitil and amiodarone Give the patient Levemir 10 units daily. Temperature control Continue TPN for nutritional support Medication adjustments done regarding ventricle tachycardia was noted and the patient is currently on , Mexitil and amiodarone IV Monitor LFTs Incentive spirometer Monitor colostomy output still in a critical condition. We'll continue to follow make further recommendations based on his progress.
[2021-12-18] MEDS: ONDANSETRON 4 MG/2 ML VIAL IVP PRN (14:01)
[2021-12-18] MEDS: HYDROmorphone 0.5 MG/0.5 ML SYRINGE IVP PRN (16:58)
[2021-12-18 18:22] LABS: Glucose,Whole Blood 252 mg/dL (75-99)
[2021-12-18] MEDS ORDERED: INSULIN DETEMIR (LEVEMIR) 100 UNIT/ML SYR SQ SCH (21:00)
[2021-12-18] MEDS: ATORVASTATIN 40 MG TAB PO SCH (21:29)
[2021-12-18] MEDS: AMIODARONE 200 MG TAB PO SCH (21:29)
[2021-12-18] MEDS: TAMSULOSIN 0.4 MG CAP.ER.24H PO SCH (21:29)
[2021-12-18 23:34] LABS: Glucose,Whole Blood 231 mg/dL (75-99)
[2021-12-19] MEDS: POTASSIUM ACETATE IV SCH ×29 (00:53→14:37)
[2021-12-19] MEDS: MAGNESIUM SULFATE IV SCH ×21 (00:53→14:37)
[2021-12-19] MEDS: [UNRECOGNIZED DRUG - OTHER] IV SCH ×21 (00:53→14:37)
[2021-12-19] MEDS: SODIUM PHOSPHATE IV SCH ×29 (00:53→14:37)
[2021-12-19 05:01] LABS: Glucose,Whole Blood 230 mg/dL (75-99)
[2021-12-19] MEDS: INSULIN ASPART (NovoLOG) 100 UNIT/ML VIAL SQ SCH ×4 (05:19→23:47)
[2021-12-19 08:00] LABS: Albumin 1.5 g/dL (3.5-5.0); Calcium 6.9 mg/dL (8.4-10.2); Magnesium 2.2 mg/dL (1.6-2.3); Phosphorus 4.5 mg/dL (2.5-4.5); Potassium 4.5 mmol/L (3.5-5.1); Total Protein 3.7 g/dL (6.3-8.2)
--- NOTE | 2021-12-19 08:13 | P.PN ---
Subjective HISTORY OF PRESENTING ILLNESS Ventricular tachycardia The patient is an 80-year-old gentleman with a past medical history significant for CAD and prior stenting of the RCA and LAD as well as ischemic cardiomyopathy and status post AICD and also status post VT ablation in 2020 as well as hypertension and dyslipidemia was admitted to the hospital with abdominal discomfort and underwent exploratory laparotomy with lysis of adhesion and repair of parastomal hernia and small bowel resection. The patient was transferred to the intensive care unit yesterday because he did have an episode of wide complex tachycardia to me looks like ventricular tachycardia. He was started on amiodarone IV as well as mexiletine. The patient was seen this morning. He did have an episode of wide-complex tachycardia seems to be consistent with SVT. He was started back on amiodarone IV after he was on amiodarone by mouth. I'm going to increase the dose of m exiletine. He seems overall lethargic this morning. Hemodynamically he is stable with a soft blood pressure. Currently he is in sinus rhythm. Heparin is on hold at this point in view of the possible GI bleeding and drop in hemoglobin record one unit of packed RBC. His hemoglobin this morning is a stable. 12/18 Patient seen and examined. Patient has been off of levophed for the last 24 hours. He is getting TPN and maintaining good urine output. He does have significant lower extremity edema however appears fairly stable, likely related to "third spacing "with extremely low albumin 1.6 and protein calorie malnutrition. He denies any chest pain or pressure. He is still having frequent nausea and dry heaves. Denies much output from his ostomy. He was noted to be positive for C. diff. No further ventricular tachycardia noted. His amiodarone drip is and will be transitioned over to oral medications today if he is tolerating oral meds. 12/19 Patient seen and examined. Patient still receiving TPN. No further ventricular ectopy noted. He was transitioned over from IV amiodarone to the oral amiodarone in addition to the mexiletine. He denies any chest pain or pressure. States his abdominal pain has been somewhat improved and he was started on oral vancomycin for his C. diff. PHYSICAL EXAMINATION Vital signs reviewed. CONSTITUTIONAL: No apparent distress, chronically ill-appearing HEENT: Head is normocephalic. Pupils are equal, round. Sclerae anicteric. Mucous membranes of the mouth are moist. No JVD. No carotid bruit. CHEST EXAMINATION: Lungs are clear to auscultation. Decreased breath sounds at bases HEART EXAMINATION: Regular rate and rhythm. S1, S2 heard. No murmurs, gallops or rub. ABDOMEN: Soft, nontender. Positive bowel sounds. EXTREMITIES: 2+ peripheral pulses, + lower extremity edema NEUROLOGIC EXAMINATION: Patient is awake, alert and oriented x3. Assessment #1 status post exploratory laparotomy #2 sustained ventricular tachycardia #3 coronary artery disease #4 ischemic cardiomyopathy #5 status post VT ablation #6 chronic systolic heart failure #7 Concern of GI bleed with blood coming from ostomy previously #8 chronic kidney disease #9 C. diff infection Plan Patient has had mild increase in his creatinine as well as liver enzymes. Continue with amiodarone for now given the risks versus benefits. May be related to mild hypotension and if patient becomes hypotensive would recommend vasopressors. He is fluid overloaded likely related to third spacing and extremely low albumin 1.5. Continue with TPN and we will give dose of Lasix. He does have mild short labored breaths however is denying any shortness of breath currently. Discussed with nurse obtaining CVP to help monitor. Continue supportive care, prognosis guarded. Objective - Vital Signs Vital signs: Vital Signs Temp 98.2 F 12/19/21 04:00 Pulse 77 12/19/21 07:00 Resp 27 H 12/19/21 07:00 BP 92/51 12/19/21 07:00 Pulse Ox 96 12/19/21 07:00 Intake & Output 12/18/21 12/19/21 12/19/21 18:59 06:59 18:59 Intake Total 2143 2041.25 Output Total 900 800 Balance 1243 1241.25 Weight 97 kg Intake: IV 1105 1020 Mvi, Adult No.4 with Vit 375 900 K 10 ml Trace (Conc-1Ml/ Dose) 1 ml Sodium Phosphate 21 mmol Potassium Acetate 40 meq Magnesium Sulfate Syg 4. 06 meq Calcium Gluconate 1 gm In Amino Acids 5 %/ Dextrose 20 % 1,000 ml @ 75 mls/hr IV .BY DURATION [facility] Rx#:[id number] Sodium Chloride 0.9% 1, 130 120 000 ml @ 20 mls/hr IV . Q24H [facility] Rx#:[id number] Sodium Phosphate 15 mmol 600 Potassium Acetate 40 meq Magnesium Sulfate Syg 4. 06 meq Calcium Gluconate 1 gm In Amino Acids 5 %/ Dextrose 20 % 1,000 ml @ 75 mls/hr IV .BY DURATION [facility] Rx#:[id number] Intake, IV Titration 1038 921.25 Amount Sodium Phosphate 21 mmol 1038 921.25 Potassium Acetate 40 meq Magnesium Sulfate Syg 4. 06 meq Calcium Gluconate 1 gm In Amino Acids 5 %/ Dextrose 20 % 1,000 ml @ 75 mls/hr IV .BY DURATION [facility] Rx#:[id number] Oral 100 Output: Urine 600 550 Stool 300 250 Other: Voiding Method Indwelling Catheter Indwelling Catheter - Labs CBC & Chem 7: 12/18/21 05:51 12/19/21 07:13 Labs: Abnormal Lab Results - Last 24 Hours (Table) 12/18/21 12/18/21 12/18/21 Range/Units 05:51 11:51 18:19 WBC 34.0 H (3.8-10.6) k/uL RBC 3.52 L (4.30-5.90) m/uL Hgb 9.6 L (13.0-17.5) gm/dL Hct 36.1 L (39.0-53.0) % MCV 102.5 H (80.0-100.0) fL MCHC 26.7 L (31.0-37.0) g/dL Neutrophils # 31.7 H (1.3-7.7) k/uL Lymphocytes # 0.5 L (1.0-4.8) k/uL Monocytes # 1.3 H (0-1.0) k/uL Sodium (137-145) mmol/L Chloride (98-107) mmol/L Carbon Dioxide (22-30) mmol/L BUN (9-20) mg/dL Creatinine (0.66-1.25) mg/dL Glucose (74-99) mg/dL POC Glucose (mg/dL) 261 H 252 H (75-99) mg/dL Calcium (8.4-10.2) mg/dL AST (17-59) U/L ALT (4-49) U/L Alkaline Phosphatase (38-126) U/L Total Protein (6.3-8.2) g/dL Albumin (3.5-5.0) g/dL 12/18/21 12/19/21 12/19/21 Range/Units 23:32 04:59 07:13 WBC (3.8-10.6) k/uL RBC (4.30-5.90) m/uL Hgb (13.0-17.5) gm/dL Hct (39.0-53.0) % MCV (80.0-100.0) fL MCHC (31.0-37.0) g/dL Neutrophils # (1.3-7.7) k/uL Lymphocytes # (1.0-4.8) k/uL Monocytes # (0-1.0) k/uL Sodium 133 L (137-145) mmol/L Chloride 110 H (98-107) mmol/L Carbon Dioxide 17 L (22-30) mmol/L BUN 60 H (9-20) mg/dL Creatinine 1.93 H (0.66-1.25) mg/dL Glucose 185 H (74-99) mg/dL POC Glucose (mg/dL) 231 H 230 H (75-99) mg/dL Calcium 6.9 L (8.4-10.2) mg/dL AST 160 H (17-59) U/L ALT 134 H (4-49) U/L Alkaline Phosphatase 210 H (38-126) U/L Total Protein 3.7 L (6.3-8.2) g/dL Albumin 1.5 L (3.5-5.0) g/dL
[2021-12-19] MEDS: VANCOMYCIN ORAL SOLUTION 250 MG/5 ML BOTTLE PO SCH ×4 (09:20→21:59)
[2021-12-19] MEDS: FAMOTIDINE 20 MG/2 ML VIAL IV SCH (09:54)
[2021-12-19] MEDS: AMIODARONE 200 MG TAB PO SCH ×2 (09:55→20:39)
[2021-12-19] MEDS: FINASTERIDE 5 MG TAB PO SCH (09:55)
[2021-12-19] MEDS: SPIRONOLACTONE 25 MG TAB PO SCH (09:55)
[2021-12-19] MEDS: MEXILETINE 200 MG CAP PO SCH ×2 (09:55→16:30)
--- NOTE | 2021-12-19 10:21 | P.PN ---
Subjective Progress Note Date: 12/19/21 Pt tolerating CLD. Has C diff, started on oral vancomycin. Volume overloaded, borderline hypotensive, elevated Cr. Will be started on albumin/lasix combo. Gen: awake, alert HEENT: normocephalic, atraumatic, good hearing acuity, moist mucous membranes Resp: good air exchange, breathing comfortably with no accessory muscle use CVS: good distal perfusion x 4, GI: soft, NTTP, ND : no SPT, no CVAT, fuentes catheter is present MSK: no pitting edema, no clubbing Neuro: non-focal, moving all extremities Psych: cooperative, euthymic mood Assessment/plan: # sepsis secondary to urinary company urinary tract infection -pseudomonas # obstructive uropathy s/p L nephroureteral stent on 12/09 # small bowel obstruction can be secondary to underlying adhesions versus parastomal hernia s/p small bowel resection on 12/09 # sustained ventricular tachycardia # C diff infection # coronary disease status post stent 2 # hyperlipidemia # essential hypertension # CKD Plan: -Admit to medicine, telemetry -Aspiration/fall precaution/hob30 -Urine cultures reviewed showing Pseudomonas. Urine cultures positive susceptible to Zosyn which we will continue to complete 5 days, completed 12/16 -Stent placed by urology needs outpatient follow-up as well. -FLD and TPN day 4, consideration of d/c'ing TPN, defer to surgery -on oral mexilitine, on amiodarone gtt, can consider low dose metoprolol, defer to cardiology -off of pressors -started oral vancomycin -rec'd 1U PRBC on 12/16 -albumin/lasix BID, lasix to follow 30min after albumin infusion given. Objective - Vital Signs Vital signs: Vital Signs Temp 98.1 F 12/19/21 08:00 Pulse 78 12/19/21 09:00 Resp 26 H 12/19/21 09:00 BP 98/50 12/19/21 09:00 Pulse Ox 95 12/19/21 09:00 Intake & Output 12/18/21 12/19/21 12/19/21 18:59 06:59 18:59 Intake Total 2143 2041.25 85 Output Total 900 800 35 Balance 1243 1241.25 50 Weight 97 kg Intake: IV 1105 1020 85 Mvi, Adult No.4 with Vit 375 900 75 K 10 ml Trace (Conc-1Ml/ Dose) 1 ml Sodium Phosphate 21 mmol Potassium Acetate 40 meq Magnesium Sulfate Syg 4. 06 meq Calcium Gluconate 1 gm In Amino Acids 5 %/ Dextrose 20 % 1,000 ml @ 75 mls/hr IV .BY DURATION [facility] Rx#:[id number] Sodium Chloride 0.9% 1, 130 120 10 000 ml @ 20 mls/hr IV . Q24H [facility] Rx#:[id number] Sodium Phosphate 15 mmol 600 Potassium Acetate 40 meq Magnesium Sulfate Syg 4. 06 meq Calcium Gluconate 1 gm In Amino Acids 5 %/ Dextrose 20 % 1,000 ml @ 75 mls/hr IV .BY DURATION [facility] Rx#:[id number] Intake, IV Titration 1038 921.25 Amount Sodium Phosphate 21 mmol 1038 921.25 Potassium Acetate 40 meq Magnesium Sulfate Syg 4. 06 meq Calcium Gluconate 1 gm In Amino Acids 5 %/ Dextrose 20 % 1,000 ml @ 75 mls/hr IV .BY DURATION [facility] Rx#:[id number] Oral 100 Output: Urine 600 550 35 Stool 300 250 Other: Voiding Method Indwelling Catheter Indwelling Catheter Indwelling Catheter - Labs CBC & Chem 7: 12/18/21 05:51 12/19/21 07:13 Labs: Abnormal Lab Results - Last 24 Hours (Table) 12/18/21 12/18/21 12/18/21 Range/Units 05:51 11:51 18:19 WBC 34.0 H (3.8-10.6) k/uL RBC 3.52 L (4.30-5.90) m/uL Hgb 9.6 L (13.0-17.5) gm/dL Hct 36.1 L (39.0-53.0) % MCV 102.5 H (80.0-100.0) fL MCHC 26.7 L (31.0-37.0) g/dL Neutrophils # 31.7 H (1.3-7.7) k/uL Lymphocytes # 0.5 L (1.0-4.8) k/uL Monocytes # 1.3 H (0-1.0) k/uL Sodium (137-145) mmol/L Chloride (98-107) mmol/L Carbon Dioxide (22-30) mmol/L BUN (9-20) mg/dL Creatinine (0.66-1.25) mg/dL Glucose (74-99) mg/dL POC Glucose (mg/dL) 261 H 252 H (75-99) mg/dL Calcium (8.4-10.2) mg/dL AST (17-59) U/L ALT (4-49) U/L Alkaline Phosphatase (38-126) U/L Total Protein (6.3-8.2) g/dL Albumin (3.5-5.0) g/dL 12/18/21 12/19/21 12/19/21 Range/Units 23:32 04:59 07:13 WBC (3.8-10.6) k/uL RBC (4.30-5.90) m/uL Hgb (13.0-17.5) gm/dL Hct (39.0-53.0) % MCV (80.0-100.0) fL MCHC (31.0-37.0) g/dL Neutrophils # (1.3-7.7) k/uL Lymphocytes # (1.0-4.8) k/uL Monocytes # (0-1.0) k/uL Sodium 133 L (137-145) mmol/L Chloride 110 H (98-107) mmol/L Carbon Dioxide 17 L (22-30) mmol/L BUN 60 H (9-20) mg/dL Creatinine 1.93 H (0.66-1.25) mg/dL Glucose 185 H (74-99) mg/dL POC Glucose (mg/dL) 231 H 230 H (75-99) mg/dL Calcium 6.9 L (8.4-10.2) mg/dL AST 160 H (17-59) U/L ALT 134 H (4-49) U/L Alkaline Phosphatase 210 H (38-126) U/L Total Protein 3.7 L (6.3-8.2) g/dL Albumin 1.5 L (3.5-5.0) g/dL
--- NOTE | 2021-12-19 10:33 | P.PN ---
Progress Note - Text Progress Note Date: 12/19/21 Patient remains essentially unchanged. There been no acute changes. His CBC is still pending from this morning. Vital signs are stable. Abdomen soft. There is some output through the colostomy. Incision site is clean dry intact Status post repair of small bowel obstruction with parastomal hernia. C. diff colitis infection Patient will continue receive supportive care.
[2021-12-19 10:48] LABS: HCT 32.8 % (39.0-53.0); HGB 10.1 gm/dL (13.0-17.5); Hypochromasia Marked; MCH 31.4 pg (25.0-35.0); MCHC 30.9 g/dL (31.0-37.0); MCV 101.8 fL (80.0-100.0); Macrocytosis Slight; Mean Platelet Volume 10.8; Platelet Count 235 k/uL (150-450); RBC 3.22 m/uL (4.30-5.90); RDW 14.3 % (11.5-15.5); WBC 31.1 k/uL (3.8-10.6)
[2021-12-19] MEDS: ALBUMIN HUMAN 25% 50 ML in EMPTY BAG 1 BAG IVPB SCH ×4 (10:56→18:50)
[2021-12-19] MEDS: ONDANSETRON 4 MG/2 ML VIAL IVP PRN (11:05)
[2021-12-19] MEDS: FUROSEMIDE 10 MG/ML 4 ML VIAL IV SCH ×2 (12:09→20:39)
[2021-12-19 12:25] LABS: Glucose,Whole Blood 213 mg/dL (75-99)
[2021-12-19] MEDS: SODIUM CHLORIDE 0.9% 1,000 ML IV SCH (12:26)
[2021-12-19] MEDS: NOREPINEPHRINE 4 MG in SODIUM CHLORIDE 0.9% 250 ML IV SCH ×2 (13:20→18:05)
[2021-12-19] MEDS: SODIUM ACETATE IV SCH ×8 (14:25)
[2021-12-19] MEDS: [UNRECOGNIZED DRUG - OTHER] IV SCH ×8 (14:25)
--- NOTE | 2021-12-19 14:45 | P.PN ---
Subjective Progress Note Date: 12/19/21 80-year-old male who was initially seen in the emergency department, on 12/08/2021, for nausea and vomiting. For a week or so prior to admission, the patient admits to ongoing nausea and vomiting. He apparently told the ER physician that anything he eats, he vomits. He was not able to take his usual m edications. The patient was recently diagnosed with an obstructive kidney stone, and was scheduled for a ureteral stent. He apparently denied fever when he was in the emergency department. He does have some minimal stool output from his colostomy. He denied any abdominal pain. We are asked to see him today, after his been in the hospital since December 08. Apparently he was found to have hypotension, and wasn't looking very good, and we decided to move him to the intensive care unit for further monitoring and management. 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 Also, on December 09, the patient underwent an exploratory laparotomy, extensive lysis of adhesions, and repair of parastomal hernia. The patient also had a small bowel resection. This was done because of bowel obstruction. Urine sampling from December 08 revealed evidence of pseudomonas aeruginosa. White count 22.68, hemoglobin 10.9, hematocrit 33.7, and platelet count 219,000. Sodium 141, potassium 3.8, chlorides 111, CO2 14, anion gap 17, BUN 38, and creatinine 1.8. AST was 387, and ALT was 467. Those are both increasing. Also, urine sampling from December 18 revealed what appears to be a urinary tract infection. Chest x-ray back from December 08 did not show anything acute. Cardiology saw the patient in consultation and ordered amiodarone, lidocaine, and Lopressor. EKG done on 5 N., revealed a wide-complex tachycardia, and a new bundle branch. history significant for CAD and prior stenting of the RCA and LAD as well as ischemic cardiomyopathy and status post AICD and also status post VT ablation in 202012/13/2021, the patient is in the intensive care unit. His current cardiac rhythm is sinus. He is having runs of episodic atrial fibrillation. There is still having episodes of nonsustained ventricular tachycardia. The patient was seen by cardiology. He remains on amiodarone drip which is running at 0.5 mcg/kg per minute and the patient remains on IV heparin. This morning, cardiology evaluated the patient and put him on a beta christelle and the patient is currently on Toprol-XL 25 mg twice a day and the patient was also started on Mexitil at a dose of 150 milligrams by mouth twice a day. The patient's blood pressure currently is at 124/75. He is on no pressors. He is receiving lactated Ringer at the rate of 20 mL an hour. He is free of any chest pain. His blood work shows a BUN of 57 with a creatinine of 1.8 and the creatinine is at 3.8 and the sodium level is at 140. Normal potassium of 3.8. Lactic acid level was down to 1.8. Troponins were 0.04 and 0.03 respectively 2. His pro- calcitonin level was 1.1. Note that his white cell count is at 38 which is comparable to yesterday and the patient also has a hemoglobin of 13.8 and a platelet count of 190. As mentioned, he had a pseudomonal urinary tract infection. The patient will remains on IV Zosyn. Echo was obtained this morning and the results are still pending for now. His liver function tests were also abnormal. His AST of 157 and ALT of 313 and an alkaline phosphatase of 309. His bilirubin is currently at 1.9. Ultrasound of the liver that was obtained on 12/11/2021 showed limitation due to his body habitus and bowel gas pattern. There was cholelithiasis with distention of the gallbladder possibly indicating an acute cholecystitis. There was still evidence of hydronephrosis of the right kidney stone measuring 1.5 cm in the right kidney was mildly hydro nephrotic. His original CAT scan of the abdomen and pelvis that was on 12/08/2021 showed high-grade mechanical small bowel obstruction with transition point in the left lower quadrant in addition to a parastomal hernia. There was also significant wall thickening of the colon just proximal to the colostomy and surrounding area of an acute inflammatory change with her underlying colitis/diverticulitis not being completely excluded. There was also left distal ureteral obstruction with stone and moderate degree of left-sided hydroureter and hydronephrosis. He has NGT and the output was 400 cc over 12 hour 12/14 2021, the patient is being seen in the intensive care unit. This morning, the patient is in a normal sinus rhythm. He did not have any wide-complex tachycardic events overnight. He is currently on a combination of Toprol-XL 25 mg twice a day, Mexitil 150 mg by mouth twice a day and the patient is starting on by mouth amiodarone coming off the amiodarone drip. I was quite concerned about his abdominal situation yesterday and there was a concern of a acute cholecystitis based on the ultrasound findings. There was also concern about ongoing mechanical obstruction as the colostomy stoma looked pale. Based on that, CAT scan of the abdomen was obtained yesterday and the results were discussed with the general surgeon. In summary, a detailed description of the abdominal findings was given in the CAT scan. Based on my understanding with the surgeons evaluation, the patient still has an area of a parastomal hernia which is fat filled and there is some ongoing ileus, unsure of there is any ongoing mechanical obstruction of the small bowel. There is an expected outcome following surgery. NG tube was in place and the patient had a moderate size hiatal hernia. There was contrast backing up into the esophagus. At the same time, there was a foci of air in the right upper quadrant which could be potentially postsurgical in nature. As such, there was no indication for any acute abdomen. There was generalized anasarca and moderate degree of abdominal and pelvic ascites. There was also a small and new bilateral pleural effusion more so on the right compared to the left lung with some adjacent atelectasis and some areas of patchy groundglass pulmonary infiltrates in lung bases and interval placement of a left ureteral stent and this was done by urology for obstructive uropathy. Gallbladder itself was hydropic with cholelithiasis. There was some possible surrounding inflammation versus changes related to anasarca. Nevertheless, on examination, the patient does not have any significant tenderness in the right upper quadrant. In terms of his LFTs, the patient's ALT is 54 and the AST is 127 and the alkaline phosphatase is 181. His current bilirubin is at 1.6. Note that his LFTs have been improving consistently. His creatinine is down to 1.6 with a BUN of 55 and his sodium level is at 136. White cell count is lower down to 33 with a hemoglobin of 10.7 and platelet count of 173. The patient remains on antibiotics with IV Zosyn. On reevaluation of the stoma, the stoma itself looks pale and there is no output in the colostomy bag. NG tube is in place and output has been in the order of 300 mL overnight. The patient remains in IV heparin for now. 2021, I'm happy to see that the patient is hemodynamically stable. No episodes of ventricular tachycardia overnight. The patient remains on Toprol-XL 25 mg, Mexitil 150 mg by mouth twice a day and he is also on oral amiodarone at a dose of 400 mg twice a day. His current cardiac rhythm is sinus. He is hemodynamically stable. He remains on IV heparin drip. Meanwhile, the patient is on TPN for nutritional support. I'm pleased to see that the patient has gas and positive stool output is colostomy bag. This was noted yesterday. The average output is minimal at this point in time. The patient was offered some clear liquid diet yesterday which he was able to tolerate. No nausea. No emesis. No abdominal pain or distention. No pain in his right quadrant of his abdomen knowing that the patient has a hydropic gallbladder and cholelithiasis. He remains on IV Zosyn regarding a pseudomonal UTI and intra-abdominal coverage following is abdominal surgery. At the same time, the patient's white cell count is still elevated from yesterday and repeat white cell count is pending from today. His white cell count from yesterday was 33. The patient's electrolytes are showing a potassium of 3.0 to be replaced. Creatinine is stable at 1.6 and a BUN of 55. His liver function tests were improving and they're essentially still improving with a AST of 88, ALT of 160, bilirubin is at 1.1. His total protein is at 3.6 with an albumin level of 1.6. Triglyceride levels are 109. Overall fluid balance over the past 24 hours is been +2.4 L. His current IV fluids are 0.9 at 75 and this is to be cut down to KVO. He is on TPN which is running at the rate of 30 mL an hour. He is arousable. He is awake and alert. Follows commands. Overall, quite weak and debilitated. 12/16/2021, I'm seeing the patient for a follow-up. The patient is awake and alert and arousable and answering questions appropriately. He remains quite weak and debilitated. Noted the patient has not had any cardiac arrhythmias. The patient was on IV heparin regarding approximately atrial fibrillation subsequently the patient started having bloody output through the colostomy. The patient accordingly, was taken off the IV heparin. This morning, the output in the colostomy bag is quite bloody and it doesn't look to be melanotic. As such, this could be a GI bleed related to anticoagulation. At evaluation was held and the patient remains in with an empty stable at this point. Most recent blood count is at 9.4 hemoglobin and the patient has a white cell count 25.3. Creatinine stable at 1.47 and the creatinine is slightly improved compared to yesterday. The patient is currently nothing by mouth. Patient is receiving TPN for nutritional support. The patient remains on IV Zosyn regarding Pseudomonas UTI. Using incentive spirometer. No other significant events otherwise for now. General surgeries on the case regarding this ongoing GI bleed. Note that the patient's hemoglobin was as high as 13.8 on 12/13/2021, the patient's hemoglobin dropped down to 8.4 and the patient was given a unit of packed RBC and the subsequent hemoglobin is at 9.4. The white cell count is at 25.3. Platelet count is 145. Creatinine is lower at 1.47. Sodium is at 136. LFTs are normal. The surgical wound site is dry clean and intact. 12/17/2021, seeing the patient for a follow-up. The patient remains lethargic, weak, he had a bout of emesis this morning. Nevertheless, he still has a functional colostomy. No active bleeding in the colostomy site and the patient is currently off anticoagulation. His white cell count remains elevated. No reported abdominal pain. The patient is still on TPN for nutritional support. He reports that he is hungry and he was to proceed with some clear liquid diet. Surgical wound site is dry clean and intact. Hemoglobin is remains stable. Meanwhile, the patient is stable white count and a stable creatinine. The patient's cardiac rhythm is remains stable. The patient remains on a combination of amiodarone 0.5 mg per minute and Mexitil 200 mg 3 times a day and the patient has not had any cardiac arrhythmias over the past 48 hours. Urine output is adequate. The patient developed diffuse edema lower extremity is bilaterally patient was given 20 mg of IV Lasix by nephrology with limited response. He is obviously retaining fluid and third spacing. The patient's hemoglobin is low. Meanwhile, the patient was admitted to 35.3 with hemoglobin of 10.8. BNP is at 43 with a creatinine of 1.4 and sodium level is at 136. LFTs are slightly elevated with overall improvement in the bilirubin is down to 1.0. Alkaline phosphatase is 213 with an ALT of 69 and AST of 62. 12/18/2021, condition is essentially unchanged and the patient continues to be lethargic. He is arousable. He is still having episodes of emesis and nausea. Note that his white cell count remains elevated and the patient 1 further had evaluation and the stool came back positive for C. diff and this was cultured from the colostomy. No evidence of any acute bleeding from the colostomy site. Hemoglobin is remains stable. Nevertheless, the patient has a component of C. diff colitis. Zosyn has been discontinued and the patient was started on oral vancomycin to 50 mg 4 times a day. Remains on TPN for nutritional support. Cardiac rhythm remains sinus. He has been switched to oral amiodarone. He is also on oral Mexitil. No evidence of any ventricular tachycardia. He does have third spacing and edema in all 4 extremities. The patient is receiving Dilaudid for pain control. The patient has hypoproteinemia and hyperlipidemia. The patient's creatinine was up to 1.8. He does have a component of non-anion gap metabolic acidosis with a serum bicarb of 19. Creatinine is at 1.76 with a mean of 51. Leukocytosis 51. Slightly elevated on today's evaluation. White cell count is still elevated at 34. 12/19/2021, the patient clinically the same. Nevertheless, the patient is having significant third spacing edema in all 4 extremities. Serum albumin is low. Serum protein is low. The patient is on TPN for nutritional support at a rate of 75 mL an hour. The patient is on O2 at 4 L per minute nasal cannula. At the same time, the patient is not having any major respiratory difficulties. He remains nothing by mouth. He remains nauseated. Colostomy site is functional. There is no active bleeding at this point in time. The patient has positive output of this is related to a component of C. diff colitis and the patient is currently on oral vancomycin as indicated to treat this underlying C. diff colitis. In terms of edema in third spacing, the patient will be placed on a combination of IV albumin and IV Lasix to optimize the fluid balance. The patient is afebrile. The patient is hemodynamically stable. The patient's cardiac rhythm is sinus. The patient is not having any significant arrhythmias. He remains on a combination of amiodarone and Mexitil regarding episodic wide complex ventricular tachycardia. He has a weak. His white cell count is at 31. Hemoglobin is 10. Creatinine is at one point I would again of 60. The patient has a component of non-anion gap metabolic acidosis with a serum bicarb of 17. AST is 160, ALT is 134, alkaline phosphatase 210. Note that all of these LFTs are essentially downtrending. IV Zosyn has been discontinued. The patient is receiving TPN for nutritional support. Objective - Vital Signs Vital signs: Vital Signs Temp 98.3 F 12/19/21 12:00 Pulse 81 12/19/21 14:00 Resp 30 H 12/19/21 14:00 BP 102/63 12/19/21 14:00 Pulse Ox 93 L 12/19/21 14:00 Intake & Output 12/18/21 12/19/21 12/19/21 18:59 06:59 18:59 Intake Total 2143 2041.25 1238.75 Output Total 900 800 355 Balance 1243 1241.25 883.75 Weight 97 kg Intake: IV 1105 1020 665 Albumin Human 25% 50 ml 100 In Empty Bag 1 bag @ 200 mls/hr IVPB DAILY@0900 [facility] Rx#:[id number] Mvi, Adult No.4 with Vit 375 900 525 K 10 ml Trace (Conc-1Ml/ Dose) 1 ml Sodium Phosphate 21 mmol Potassium Acetate 40 meq Magnesium Sulfate Syg 4. 06 meq Calcium Gluconate 1 gm In Amino Acids 5 %/ Dextrose 20 % 1,000 ml @ 75 mls/hr IV .BY DURATION [facility] Rx#:[id number] Sodium Chloride 0.9% 1, 130 120 40 000 ml @ 20 mls/hr IV . Q24H [facility] Rx#:[id number] Sodium Phosphate 15 mmol 600 Potassium Acetate 40 meq Magnesium Sulfate Syg 4. 06 meq Calcium Gluconate 1 gm In Amino Acids 5 %/ Dextrose 20 % 1,000 ml @ 75 mls/hr IV .BY DURATION [facility] Rx#:[id number] Intake, IV Titration 1038 921.25 473.75 Amount Norepinephrine 4 mg In 0 Sodium Chloride 0.9% 250 ml @ 0.05 MCG/KG/MIN 14. 776 mls/hr IV .[id number] [facility] Rx#:[id number] Sodium Phosphate 21 mmol 1038 921.25 473.75 Potassium Acetate 40 meq Magnesium Sulfate Syg 4. 06 meq Calcium Gluconate 1 gm In Amino Acids 5 %/ Dextrose 20 % 1,000 ml @ 75 mls/hr IV .BY DURATION [facility] Rx#:[id number] Oral 100 100 Output: Urine 600 550 355 Stool 300 250 Other: Voiding Method Indwelling Catheter Indwelling Catheter Indwelling Catheter - Exam No acute distress, oriented, the patient is pale, and looks chronically ill. Currently on 2 L of oxygen by nasal cannula. Head exam was generally normal. There was no scleral icterus or corneal arcus. Mucous membranes were moist. HEENT examination is grossly unremarkable. NG tube is noted. Neck supple. Full range of motion. No adenopathy thyromegaly or neck vein distention. Cardiovascular examination reveals regular rhythm rate. S1-S2 normal. No S3 or S4. No discernible murmur noted The patient has a pacemaker pocket over the left anterior chest area/AICD pocket. Lungs reveal scattered mild rhonchi. No wheezes or crackles. Breath sounds equal. Saturations 94% on 2 L. Abdomen soft without bowel sounds. A dressing is noted over the recent exploratory laparotomy. There is a colostomy in the left lower quadrant. The colostomy site is quite pale and nonfunctional this point in time. There is no output in the colostomy bag. No direct tenderness in the right upper quadrant. No rebound tenderness no guarding. Surgical wound site is dry clean and intact. Bowel sounds are extensively hypoactive. The abdominal exam is essentially unchanged compared to yesterday. Extremities are intact. No cyanosis clubbing and there is edema in all 4 extrem ity especially in the legs and there is some minimal scrotal edema at this point in time. Skin is without rash or lesion. The patient has a DTI on his coccyx. Neurologic examination is brief but nonfocal. The patient is lethargic but the patient is arousable. The patient is following simple commands. - Labs CBC & Chem 7: 12/19/21 07:13 12/19/21 07:13 Labs: Abnormal Lab Results - Last 24 Hours (Table) 12/18/21 12/18/21 12/19/21 Range/Units 18:19 23:32 04:59 WBC (3.8-10.6) k/uL RBC (4.30-5.90) m/uL Hgb (13.0-17.5) gm/dL Hct (39.0-53.0) % MCV (80.0-100.0) fL MCHC (31.0-37.0) g/dL Sodium (137-145) mmol/L Chloride (98-107) mmol/L Carbon Dioxide (22-30) mmol/L BUN (9-20) mg/dL Creatinine (0.66-1.25) mg/dL Glucose (74-99) mg/dL POC Glucose (mg/dL) 252 H 231 H 230 H (75-99) mg/dL Calcium (8.4-10.2) mg/dL AST (17-59) U/L ALT (4-49) U/L Alkaline Phosphatase (38-126) U/L Total Protein (6.3-8.2) g/dL Albumin (3.5-5.0) g/dL 12/19/21 12/19/21 12/19/21 Range/Units 07:13 07:13 12:23 WBC 31.1 H (3.8-10.6) k/uL RBC 3.22 L (4.30-5.90) m/uL Hgb 10.1 L (13.0-17.5) gm/dL Hct 32.8 L (39.0-53.0) % MCV 101.8 H (80.0-100.0) fL MCHC 30.9 L (31.0-37.0) g/dL Sodium 133 L (137-145) mmol/L Chloride 110 H (98-107) mmol/L Carbon Dioxide 17 L (22-30) mmol/L BUN 60 H (9-20) mg/dL Creatinine 1.93 H (0.66-1.25) mg/dL Glucose 185 H (74-99) mg/dL POC Glucose (mg/dL) 213 H (75-99) mg/dL Calcium 6.9 L (8.4-10.2) mg/dL AST 160 H (17-59) U/L ALT 134 H (4-49) U/L Alkaline Phosphatase 210 H (38-126) U/L Total Protein 3.7 L (6.3-8.2) g/dL Albumin 1.5 L (3.5-5.0) g/dL Assessment and Plan Plan: 1 Status post exploratory laparotomy, lysis of adhesions, repair of parastomal hernia, small bowel resection, 12/09/2021. There may be also a component of diverticulitis/ischemic bowel adjacent to the hernia. The patient underwent expiratory laparotomy. The patient is currently nothing by mouth. NG tube is in place. The patient is currently on antibiotics and the patient is currently on IV Zosyn. The patient is currently postop day #10. Repeat CAT scan of the abdomen was noted and there is hydropic gallbladder along with cholelithiasis, LFTs are improving and and the patient's has a functional colostomy at this point in time. The patient did encounter some bleeding from his colostomy and based on that the patient was given a unit of packed RBC and the patient is currently off anticoagulation. Patient remains on TPN for nutritional support. Subsequently, the bleeding stopped and the patient is currently not having any signs of GI bleed. Nevertheless, the patient developed leukocytosis and further investigation revealed that the patient was positive for some stool C. diff. At that point, the patient was started on oral vancomycin. On today's evaluation, the patient remains nothing by mouth. The patient continues to receive TPN for nutritional support. C. diff colitis being treated with oral vancomycin. White cell count is dropping is currently down to 31. LFTs are also improving. Nevertheless, the patient is lethargic and weak and he is still hypoproteinemic and hypoalbuminemic and the patient is having third spacing, and obvious signs of fluid overload. The patient remains on TPN for nutritional support. 2 GI bleeding with subsequent drop in hemoglobin , currently inactive in stable 3 Pseudomonas aeruginosa urinary tract infection, and likely sepsis. Status post left ureteral stent, for hydronephrosis and renal calculi, 12/09/2021. The patient has some indication for some mild right-sided hydronephrosis and this will be further discussed with urology. The patient completed the course of IV Zosyn and the patient was taken off antibiotics and the patient developed C. diff colitis 4 Wide-complex tachycardia, new since admission.She is known to have ischemic cardiomyopathy with previous history of coronary artery disease and V. tach and the patient has undergone previous VT ablation currently has an AICD in place. The patient is currently on combination of amiodarone and oral Mexitil. Cardiac rhythm remains sinus. No evidence of any ventricular tachycardia. 5 transaminitis, which may relate to underlying cholecystitis. Consider acute cholecystitis. General surgeries on the case. The CAT scan of the abdomen shows hydropic gallbladder with cholelithiasis. LFTs are improving on today's evaluation the patient does not have any right upper quadrant tenderness. LFTs continued to improve. 6 acute kidney injury, on top of chronic kidney disease. The patient has likely an underlying chronic stage III kidney disease. 7 acute leukocytosis, white cell count is still elevated. This is likely secondary to C. diff colitis. 8 History of CAD, status post heart catheterization with stent placement. 9 history of nonsustained VT, post VT ablation and the patient has a History of AICD placement. 10 History of sleep apnea syndrome. 11 History of hyperlipidemia. 12 History of hypertension. 13 History of colon cancer, status post colectomy with colostomy. 14 History of deep venous thrombosis. 15 paroxysmal atrial fibrillation, currently off IV heparin , current rhythm is sinus 16 peripheral edema and third spacing secondary to hypoproteinemia 17 anion gap metabolic acidosis\ Plan: IV Zosyn has already been discontinued. Give the patient on vancomycin 250 mg by mouth 4 times a day regarding C. diff colitis Monitor white cell count , the numbers continue to improve Monitor diarrhea Watch for any signs of GI bleed We'll give the patient 25 mg IV albumin every 12 hours investigation with Lasix 40 mg IV every 12 hours and this may potentially optimizing the fluid balance. Monitor renal function Continue the oral Mexitil and amiodarone Give the patient Levemir 10 units daily. Blood sugars under better control for now. Continue TPN for nutritional support Medication adjustments done regarding ventricle tachycardia was noted and the patient is currently on , Mexitil and amiodarone IV Monitor LFTs Incentive spirometer Monitor colostomy output still in a critical condition. We'll continue to follow make further recommendations based on his progress.
[2021-12-19] MEDS ORDERED: NOREPINEPHRINE 32 MG in SODIUM CHLORIDE 0.9% 218 ML IV SCH (17:30)
[2021-12-19 18:08] LABS: Glucose,Whole Blood 216 mg/dL (75-99)
[2021-12-19] MEDS: TAMSULOSIN 0.4 MG CAP.ER.24H PO SCH (20:39)
[2021-12-19] MEDS: ATORVASTATIN 40 MG TAB PO SCH (20:39)
[2021-12-19] MEDS: INSULIN DETEMIR (LEVEMIR) 100 UNIT/ML SYR SQ SCH (20:39)
[2021-12-19 23:35] LABS: Glucose,Whole Blood 197 mg/dL (75-99)
[2021-12-19] MEDS: NOREPINEPHRINE 8 MG in SODIUM CHLORIDE 0.9% 250 ML IV SCH (23:47)
[2021-12-20] MEDS: MEXILETINE 200 MG CAP PO SCH ×3 (00:56→17:12)
[2021-12-20 05:58] LABS: HCT 32.9 % (39.0-53.0); HGB 10.3 gm/dL (13.0-17.5); Hypochromasia Slight; MCH 31.1 pg (25.0-35.0); MCHC 31.4 g/dL (31.0-37.0); MCV 99.1 fL (80.0-100.0); Platelet Count 263 k/uL (150-450); RBC 3.32 m/uL (4.30-5.90); RDW 14.1 % (11.5-15.5); WBC 25.7 k/uL (3.8-10.6)
[2021-12-20 06:09] LABS: Albumin 2.2 g/dL (3.5-5.0); Calcium 7.2 mg/dL (8.4-10.2); Magnesium 2.2 mg/dL (1.6-2.3); Phosphorus 4.4 mg/dL (2.5-4.5); Potassium 4.5 mmol/L (3.5-5.1); Total Bilirubin 1.3 mg/dL (0.2-1.3); Total Protein 4.5 g/dL (6.3-8.2)
[2021-12-20 06:13] LABS: Glucose,Whole Blood 87 mg/dL (75-99)
[2021-12-20] MEDS: INSULIN ASPART (NovoLOG) 100 UNIT/ML VIAL SQ SCH ×3 (06:13→17:53)
[2021-12-20] MEDS: SODIUM ACETATE IV SCH ×16 (06:53→21:32)
[2021-12-20] MEDS: SODIUM PHOSPHATE IV SCH ×16 (06:53→21:32)
[2021-12-20] MEDS: POTASSIUM ACETATE IV SCH ×16 (06:53→21:32)
[2021-12-20] MEDS: [UNRECOGNIZED DRUG - OTHER] IV SCH ×16 (06:53→21:32)
--- NOTE | 2021-12-20 07:42 | XR ---
EXAMINATION TYPE: XR chest 1V portable DATE OF EXAM: 12/20/2021 Comparison: 12/17/2021 Clinical History: 80-year-old male possible pneumonia Findings: Left anterior chest wall AICD generator with threaded atrial and right ventricular leads. Left CVC ti p is at the mid SVC level. Low lung volumes with accentuated heart size, unchanged. Patchy opacity pe riphery of the right mid and lower lung and also at the left base/retrocardiac region shows no signif icant change. Impression: Similar hypoventilatory changes and patchy airspace disease periphery of the right base and also at t he retrocardiac region/left base. The airspace disease may reflect aspiration or infectious infiltrat es.
--- NOTE | 2021-12-20 08:03 | P.PN ---
Subjective Progress Note Date: 12/20/21 PROGRESS NOTE The patient is an 80-year-old male with a known history of CAD, cardiomyopathy, ventricular tachycardia and ICD implantation who was admitted for nausea and vomiting and underwent expiratory laparotomy with colostomy. He had episodes of recurrent ventricular tachycardia. He is maintained on oral amiodarone and mexiletine. He continues to be in sinus mechanism. Awake, alert. He continues to have significant edema. He has a functioning colostomy. There is no evidence of recurrent ventricular tachycardia at this time. His echocardiogram performed during this admission was of very poor quality, in the past his ejection fraction was estimated at 40-45%. He continues to be on amiodarone 400 mg twice a day, furosemide 40 mg IV twice a day, mexiletine 200 mg every 8 hours, spironolactone 12-1/2 mg daily and atorvastatin 40 mg daily. PHYSICAL EXAMINATION: Blood pressure 104/60 heart rate 84 LUNGS: [Clear to auscultation] HEART: [Regular rate and rhythm, S1, S2. No S3. systolic murmur at the base /] ABDOMEN: [Soft, nontender, no organomegaly, colostomy noted] EXTREMETIES: 2+ edema LAB: BUN 65, creatinine 1.3, hemoglobin 10.3, white blood cell 25.7, potassium 4.5. IMPRESSION: 1. Status post exploratory laparotomy with colostomy 2. Third spacing with peripheral edema 3. Ventricle tachycardia status post ablation on amiodarone and mexiletine 4. History of coronary artery disease status post PCI PLAN: 1. Continue amiodarone and mexiletine on present dose at this time 2. If blood pressure is stable start beta christelle 3. Increase activity as tolerated 4. Follow renal functions and continue diuresis. 5. Physical therapy Objective - Vital Signs Vital signs: Vital Signs Temp 98.1 F 12/20/21 04:00 Pulse 85 12/20/21 07:45 Resp 31 H 12/20/21 07:45 BP 85/60 12/20/21 07:45 Pulse Ox 93 L 12/20/21 07:45 Intake & Output 12/19/21 12/20/21 12/20/21 18:59 06:59 18:59 Intake Total 1588.75 2054 85 Output Total 685 1145 150 Balance 903.75 909 -65 Weight 96.2 kg Intake: IV 1015 1010 85 Albumin Human 25% 50 ml 100 In Empty Bag 1 bag @ 200 mls/hr IVPB DAILY@0900 [facility] Rx#:[id number] Mvi, Adult No.4 with Vit 825 900 75 K 10 ml Trace (Conc-1Ml/ Dose) 1 ml Sodium Phosphate 21 mmol Potassium Acetate 40 meq Magnesium Sulfate Syg 4. 06 meq Calcium Gluconate 1 gm In Amino Acids 5 %/ Dextrose 20 % 1,000 ml @ 75 mls/hr IV .BY DURATION [facility] Rx#:[id number] Sodium Chloride 0.9% 1, 90 110 10 000 ml @ 20 mls/hr IV . Q24H [facility] Rx#:[id number] Intake, IV Titration 473.75 1044 Amount Norepinephrine 4 mg In 0 Sodium Chloride 0.9% 250 ml @ 0.05 MCG/KG/MIN 14. 776 mls/hr IV .[id number] [facility] Rx#:[id number] Sodium Phosphate 21 mmol 473.75 Potassium Acetate 40 meq Magnesium Sulfate Syg 4. 06 meq Calcium Gluconate 1 gm In Amino Acids 5 %/ Dextrose 20 % 1,000 ml @ 75 mls/hr IV .BY DURATION [facility] Rx#:[id number] Sodium Phosphate 9 mmol 1044 Sodium Acetate 20 meq Potassium Acetate 40 meq Magnesium Sulfate Syg 4. 06 meq Calcium Gluconate 1 gm In Amino Acids 5 %/ Dextrose 20 % 1,000 ml @ 75 mls/hr IV .BY DURATION [facility] Rx#:[id number] Oral 100 Output: Urine 685 1145 50 Stool 100 Other: Voiding Method Indwelling Catheter Indwelling Catheter - Labs CBC & Chem 7: 12/20/21 05:29 12/20/21 05:29 Labs: Abnormal Lab Results - Last 24 Hours (Table) 12/19/21 12/19/21 12/19/21 Range/Units 07:13 07:13 12:23 WBC 31.1 H (3.8-10.6) k/uL RBC 3.22 L (4.30-5.90) m/uL Hgb 10.1 L (13.0-17.5) gm/dL Hct 32.8 L (39.0-53.0) % MCV 101.8 H (80.0-100.0) fL MCHC 30.9 L (31.0-37.0) g/dL Sodium 133 L (137-145) mmol/L Chloride 110 H (98-107) mmol/L Carbon Dioxide 17 L (22-30) mmol/L BUN 60 H (9-20) mg/dL Creatinine 1.93 H (0.66-1.25) mg/dL Glucose 185 H (74-99) mg/dL POC Glucose (mg/dL) 213 H (75-99) mg/dL Calcium 6.9 L (8.4-10.2) mg/dL AST 160 H (17-59) U/L ALT 134 H (4-49) U/L Alkaline Phosphatase 210 H (38-126) U/L Total Protein 3.7 L (6.3-8.2) g/dL Albumin 1.5 L (3.5-5.0) g/dL 12/19/21 12/19/21 12/20/21 Range/Units 18:07 23:33 05:29 WBC 25.7 H (3.8-10.6) k/uL RBC 3.32 L (4.30-5.90) m/uL Hgb 10.3 L (13.0-17.5) gm/dL Hct 32.9 L (39.0-53.0) % MCV (80.0-100.0) fL MCHC (31.0-37.0) g/dL Sodium (137-145) mmol/L Chloride (98-107) mmol/L Carbon Dioxide (22-30) mmol/L BUN (9-20) mg/dL Creatinine (0.66-1.25) mg/dL Glucose (74-99) mg/dL POC Glucose (mg/dL) 216 H 197 H (75-99) mg/dL Calcium (8.4-10.2) mg/dL AST (17-59) U/L ALT (4-49) U/L Alkaline Phosphatase (38-126) U/L Total Protein (6.3-8.2) g/dL Albumin (3.5-5.0) g/dL 12/20/21 Range/Units 05:29 WBC (3.8-10.6) k/uL RBC (4.30-5.90) m/uL Hgb (13.0-17.5) gm/dL Hct (39.0-53.0) % MCV (80.0-100.0) fL MCHC (31.0-37.0) g/dL Sodium 135 L (137-145) mmol/L Chloride (98-107) mmol/L Carbon Dioxide 19 L (22-30) mmol/L BUN 65 H (9-20) mg/dL Creatinine 1.93 H (0.66-1.25) mg/dL Glucose (74-99) mg/dL POC Glucose (mg/dL) (75-99) mg/dL Calcium 7.2 L (8.4-10.2) mg/dL AST 93 H (17-59) U/L ALT 104 H (4-49) U/L Alkaline Phosphatase 189 H (38-126) U/L Total Protein 4.5 L (6.3-8.2) g/dL Albumin 2.2 L (3.5-5.0) g/dL
[2021-12-20] MEDS: AMIODARONE 200 MG TAB PO SCH ×2 (09:16→20:29)
[2021-12-20] MEDS: FUROSEMIDE 10 MG/ML 4 ML VIAL IV SCH ×2 (09:17→17:12)
[2021-12-20] MEDS: FINASTERIDE 5 MG TAB PO SCH (09:17)
[2021-12-20] MEDS: SPIRONOLACTONE 25 MG TAB PO SCH (09:17)
[2021-12-20] MEDS: ALBUMIN HUMAN 25% 50 ML in EMPTY BAG 1 BAG IVPB SCH ×4 (09:17→17:41)
[2021-12-20] MEDS: FAMOTIDINE 20 MG/2 ML VIAL IV SCH (09:25)
[2021-12-20] MEDS: VANCOMYCIN ORAL SOLUTION 250 MG/5 ML BOTTLE PO SCH ×4 (09:25→22:48)
[2021-12-20] MEDS: PIPERACILLIN-TAZOBACTAM 3.375 GM in SODIUM CHLORIDE 0.9% 100 ML IVPB SCH ×2 (11:05→17:45)
[2021-12-20 11:46] LABS: Glucose,Whole Blood 163 mg/dL (75-99)
--- NOTE | 2021-12-20 11:52 | P.PN ---
Subjective Progress Note Date: 12/20/21 CHIEF COMPLAINT: Small bowel ejection HISTORY OF PRESENT ILLNESS: Patient is in the ICU. Patient is postop day #11 status post exploratory laparotomy, lysis of extensive adhesions, repair of parastomal hernia and small bowel resection for small bowel obstruction due to parastomal hernia and adhesions. Patient is sitting up in bed. He denies any abdominal pain. Denies any nausea or vomiting. Ostomy is functioning with liquidy brown stool. No further blood noted. Patient had 100 mL output through his ostomy. He was taken off of Levophed this morning. On the TPN for nutrition support. He is also being treated for C. diff colitis. Afebrile. WBC 31.1 down to 25.7 hemoglobin 10.3 platelets 263 sodium 135 potassium 4.5 creatinine 1.93 LFTs trending down Patient seen and examined with Dr. velarde PHYSICAL EXAM: VITAL SIGNS: Reviewed. GENERAL: Well-developed in no acute distress. HEENT: No sclera icterus. Extraocular movements grossly intact. Moist buccal mucosa. Head is atraumatic, normocephalic. ABDOMEN: Soft. Nondistended. Minimal tenderness noted at incision site. Incision site clean dry and intact. Ostomy functioning with liquidy brown stool NEUROLOGIC: Sleepy but able to answer questions ASSESSMENT: 1. 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 Left hydronephrosis secondary to left ureteral stricture status post cystoscopy with left ureteroscopy balloon dilatation of the left distal ureteral stricture and left ureteral stent insertion by Dr. Cool 3. Sustained ventricle tachycardia 4. Hypokalemia 5. Distended gallbladder with cholelithiasis 6. Possible postoperative ileus 7. Leukocytosis 10. GI bleeding with blood noted in stool in ostomy bag likely secondary to the anticoagulation 11. Severe protein calorie malnutrition 12. History of atrial fibrillation 13. C. diff colitis PLAN: -Continue ICU management -Continue supportive care -Continue antibiotics -Continue to monitor hemoglobin -Continue Tylenol as needed for pain -Encourage incentive spirometer use -Continue TPN for nutrition support Physician Refrigeration Unit Repairer note has been reviewed by physician. Signing provider agrees with the documented findings, assessment, and plan of care. Objective - Vital Signs Vital signs: Vital Signs Temp 98.0 F 12/20/21 08:00 Pulse 84 12/20/21 11:15 Resp 33 H 12/20/21 11:15 BP 91/68 12/20/21 11:15 Pulse Ox 93 L 12/20/21 11:15 Intake & Output 12/19/21 12/20/21 12/20/21 18:59 06:59 18:59 Intake Total 1588.75 2054 713.23 Output Total 685 1145 550 Balance 903.75 909 163.23 Weight 96.2 kg Intake: IV 1015 1010 515 Albumin Human 25% 50 ml 100 100 In Empty Bag 1 bag @ 200 mls/hr IVPB DAILY@0900 [facility] Rx#:[id number] Mvi, Adult No.4 with Vit 825 900 375 K 10 ml Trace (Conc-1Ml/ Dose) 1 ml Sodium Phosphate 21 mmol Potassium Acetate 40 meq Magnesium Sulfate Syg 4. 06 meq Calcium Gluconate 1 gm In Amino Acids 5 %/ Dextrose 20 % 1,000 ml @ 75 mls/hr IV .BY DURATION [facility] Rx#:[id number] Sodium Chloride 0.9% 1, 90 110 40 000 ml @ 20 mls/hr IV . Q24H [facility] Rx#:[id number] Intake, IV Titration 473.75 1044 198.23 Amount Norepinephrine 4 mg In 0 Sodium Chloride 0.9% 250 ml @ 0.05 MCG/KG/MIN 14. 776 mls/hr IV .[id number] [facility] Rx#:[id number] Norepinephrine 8 mg In 98.23 Sodium Chloride 0.9% 250 ml @ 0.05 MCG/KG/MIN 9. 385 mls/hr IV .Q24H [facility] Rx#:[id number] Piperacillin-Tazobactam 3 100 .375 gm In Sodium Chloride 0.9% 100 ml @ 25 mls/hr IVPB Q8H [facility] Rx#: [id number] Sodium Phosphate 21 mmol 473.75 Potassium Acetate 40 meq Magnesium Sulfate Syg 4. 06 meq Calcium Gluconate 1 gm In Amino Acids 5 %/ Dextrose 20 % 1,000 ml @ 75 mls/hr IV .BY DURATION [facility] Rx#:[id number] Sodium Phosphate 9 mmol 1044 Sodium Acetate 20 meq Potassium Acetate 40 meq Magnesium Sulfate Syg 4. 06 meq Calcium Gluconate 1 gm In Amino Acids 5 %/ Dextrose 20 % 1,000 ml @ 75 mls/hr IV .BY DURATION [facility] Rx#:[id number] Oral 100 Output: Urine 245 1145 450 Stool 100 Other: Voiding Method Indwelling Catheter Indwelling Catheter Indwelling Catheter - Labs CBC & Chem 7: 12/20/21 05:29 12/20/21 05:29 Labs: Abnormal Lab Results - Last 24 Hours (Table) 12/19/21 12/19/21 12/19/21 Range/Units 12:23 18:07 23:33 WBC (3.8-10.6) k/uL RBC (4.30-5.90) m/uL Hgb (13.0-17.5) gm/dL Hct (39.0-53.0) % Sodium (137-145) mmol/L Carbon Dioxide (22-30) mmol/L BUN (9-20) mg/dL Creatinine (0.66-1.25) mg/dL POC Glucose (mg/dL) 213 H 216 H 197 H (75-99) mg/dL Calcium (8.4-10.2) mg/dL AST (17-59) U/L ALT (4-49) U/L Alkaline Phosphatase (38-126) U/L Total Protein (6.3-8.2) g/dL Albumin (3.5-5.0) g/dL 12/20/21 12/20/21 12/20/21 Range/Units 05:29 05:29 11:43 WBC 25.7 H (3.8-10.6) k/uL RBC 3.32 L (4.30-5.90) m/uL Hgb 10.3 L (13.0-17.5) gm/dL Hct 32.9 L (39.0-53.0) % Sodium 135 L (137-145) mmol/L Carbon Dioxide 19 L (22-30) mmol/L BUN 65 H (9-20) mg/dL Creatinine 1.93 H (0.66-1.25) mg/dL POC Glucose (mg/dL) 163 H (75-99) mg/dL Calcium 7.2 L (8.4-10.2) mg/dL AST 93 H (17-59) U/L ALT 104 H (4-49) U/L Alkaline Phosphatase 189 H (38-126) U/L Total Protein 4.5 L (6.3-8.2) g/dL Albumin 2.2 L (3.5-5.0) g/dL
--- NOTE | 2021-12-20 12:04 | P.PN ---
Subjective Progress Note Date: 12/20/21 Principal diagnosis: Nausea, vomiting and diarrhea 80-year-old male who was initially seen in the emergency department, on 12/08/2021, for nausea and vomiting. For a week or so prior to admission, the patient admits to ongoing nausea and vomiting. He apparently told the ER nae briscoe that anything he eats, he vomits. He was not able to take his usual medications. The patient was recently diagnosed with an obstructive kidney stone, and was scheduled for a ureteral stent. He apparently denied fever when he was in the emergency department. He does have some minimal stool output from his colostomy. He denied any abdominal pain. We are asked to see him today, after his been in the hospital since December 08. Apparently he was found to have hypotension, and wasn't looking very good, and we decided to move him to the intensive care unit for further monitoring and management. 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 Also, on December 09, the patient underwent an exploratory laparotomy, extensive lysis of adhesions, and repair of parastomal hernia. The patient also had a small bowel resection. This was done because of bowel obstruction. Urine sampling from December 08 revealed evidence of pseudomonas aeruginosa. White count 22.68, hemoglobin 10.9, hematocrit 33.7, and platelet count 219,000. Sodium 141, potassium 3.8, chlorides 111, CO2 14, anion gap 17, BUN 38, and creatinine 1.8. AST was 387, and ALT was 467. Those are both increasing. Also, urine sampling from December 18 revealed what appears to be a urinary tract infection. Chest x-ray back from December 08 did not show anything acute. Cardiology saw the patient in consultation and ordered amiodarone, lidocaine, and Lopressor. EKG done on 5 N., revealed a wide-complex tachycardia, and a new bundle branch. history significant for CAD and prior stenting of the RCA and LAD as well as ischemic cardiomyopathy and status post AICD and also status post VT ablation in 202012/13/2021, the patient is in the intensive care unit. His current cardiac rhythm is sinus. He is having runs of episodic atrial fibrillation. There is still having episodes of nonsustained ventricular tachycardia. The patient was seen by cardiology. He remains on amiodarone drip which is running at 0.5 mcg/kg per minute and the patient remains on IV heparin. This morning, cardiology evaluated the patient and put him on a beta christelle and the patient is currently on Toprol-XL 25 mg twice a day and the patient was also started on Mexitil at a dose of 150 milligrams by mouth twice a day. The patient's blood pressure currently is at 124/75. He is on no pressors. He is receiving lactated Ringer at the rate of 20 mL an hour. He is free of any chest pain. His blood work shows a BUN of 57 with a creatinine of 1.8 and the creatinine is at 3.8 and the sodium level is at 140. Normal potassium of 3.8. Lactic acid level was down to 1.8. Troponins were 0.04 and 0.03 respectively 2. His pro- calcitonin level was 1.1. Note that his white cell count is at 38 which is comparable to yesterday and the patient also has a hemoglobin of 13.8 and a platelet count of 190. As mentioned, he had a pseudomonal urinary tract infection. The patient will remains on IV Zosyn. Echo was obtained this morning and the results are still pending for now. His liver function tests were also abnormal. His AST of 157 and ALT of 313 and an alkaline phosphatase of 309. His bilirubin is currently at 1.9. Ultrasound of the liver that was obtained on 12/11/2021 showed limitation due to his body habitus and bowel gas pattern. There was cholelithiasis with distention of the gallbladder possibly indicating an acute cholecystitis. There was still evidence of hydronephrosis of the right kidney stone measuring 1.5 cm in the right kidney was mildly hydronephrotic. His original CAT scan of the abdomen and pelvis that was on 12/08/2021 showed high-grade mechanical small bowel obstruction with transition point in the left lower quadrant in addition to a parastomal hernia. There was also significant wall thickening of the colon just proximal to the colostomy and surrounding area of an acute inflammatory change with her underlying colitis/diverticulitis not being completely excluded. There was also left distal ureteral obstruction with stone and moderate degree of left-sided hydroureter and hydronephrosis. He has NGT and the output was 400 cc over 12 hour 12/14 2021, the patient is being seen in the intensive care unit. This morning, the patient is in a normal sinus rhythm. He did not have any wide-complex tachycardic events overnight. He is currently on a combination of Toprol-XL 25 mg twice a day, Mexitil 150 mg by mouth twice a day and the patient is starting on by mouth amiodarone coming off the amiodarone drip. I was quite concerned about his abdominal situation yesterday and there was a concern of a acute cholecystitis based on the ultrasound findings. There was also concern about ongoing mechanical obstruction as the colostomy stoma looked pale. Based on that, CAT scan of the abdomen was obtained yesterday and the results were discussed with the general surgeon. In summary, a detailed description of the abdominal findings was given in the CAT scan. Based on my understanding with the surgeons evaluation, the patient still has an area of a parastomal hernia which is fat filled and there is some ongoing ileus, unsure of there is any o ngoing mechanical obstruction of the small bowel. There is an expected outcome following surgery. NG tube was in place and the patient had a moderate size hiatal hernia. There was contrast backing up into the esophagus. At the same time, there was a foci of air in the right upper quadrant which could be potentially postsurgical in nature. As such, there was no indication for any acute abdomen. There was generalized anasarca and moderate degree of abdominal and pelvic ascites. There was also a small and new bilateral pleural effusion more so on the right compared to the left lung with some adjacent atelectasis and some areas of patchy groundglass pulmonary infiltrates in lung bases and interval placement of a left ureteral stent and this was done by urology for obstructive uropathy. Gallbladder itself was hydropic with cholelithiasis. There was some possible surrounding inflammation versus changes related to anasarca. Nevertheless, on examination, the patient does not have any significant tenderness in the right upper quadrant. In terms of his LFTs, the patient's ALT is 54 and the AST is 127 and the alkaline phosphatase is 181. His current bilirubin is at 1.6. Note that his LFTs have been improving consistently. His creatinine is down to 1.6 with a BUN of 55 and his sodium level is at 136. White cell count is lower down to 33 with a hemoglobin of 10.7 and platelet count of 173. The patient remains on antibiotics with IV Zosyn. On reevaluation of the stoma, the stoma itself looks pale and there is no output in the colostomy bag. NG tube is in place and output has been in the order of 300 mL overnight. The patient remains in IV heparin for now. 2021, I'm happy to see that the patient is hemodynamically stable. No episodes of ventricular tachycardia overnight. The patient remains on Toprol-XL 25 mg, Mexitil 150 mg by mouth twice a day and he is also on oral amiodarone at a dose of 400 mg twice a day. His current cardiac rhythm is sinus. He is hemodynamically stable. He remains on IV heparin drip. Meanwhile, the patient is on TPN for nutritional support. I'm pleased to see that the patient has gas and positive stool output is colostomy bag. This was noted yesterday. The average output is minimal at this point in time. The patient was offered some clear liquid diet yesterday which he was able to tolerate. No nausea. No emesis. No abdominal pain or distention. No pain in his right quadrant of his abdomen knowing that the patient has a hydropic gallbladder and cholelithiasis. He remains on IV Zosyn regarding a pseudomonal UTI and intra-abdominal coverage following is abdominal surgery. At the same time, the patient's white cell count is still elevated from yesterday and repeat white cell count is pending from today. His white cell count from yesterday was 33. The patient's electrolytes are showing a potassium of 3.0 to be replaced. Creatinine is stable at 1.6 and a BUN of 55. His liver function tests were improving and they're essentially still improving with a AST of 88, ALT of 160, bilirubin is at 1.1. His total protein is at 3.6 with an albumin level of 1.6. Triglyceride levels are 109. Overall fluid balance over the past 24 hours is been +2.4 L. His current IV fluids are 0.9 at 75 and this is to be cut down to KVO. He is on TPN which is running at the rate of 30 mL an hour. He is arousable. He is awake and alert. Follows commands. Overall, quite weak and debilitated. 12/16/2021, I'm seeing the patient for a follow-up. The patient is awake and alert and arousable and answering questions appropriately. He remains quite weak and debilitated. Noted the patient has not had any cardiac arrhythmias. The patient was on IV heparin regarding approximately atrial fibrillation subsequently the patient started having bloody output through the colostomy. The patient accordingly, was taken off the IV heparin. This morning, the output in the colostomy bag is quite bloody and it doesn't look to be melanotic. As such, this could be a GI bleed related to anticoagulation. At evaluation was held and the patient remains in with an empty stable at this point. Most recent blood count is at 9.4 hemoglobin and the patient has a white cell count 25.3. Creatinine stable at 1.47 and the creatinine is slightly improved compared to yesterday. The patient is currently nothing by mouth. Patient is receiving TPN for nutritional support. The patient remains on IV Zosyn regarding Pseudomonas UTI. Using incentive spirometer. No other significant events otherwise for now. General surgeries on the case regarding this ongoing GI bleed. Note that the patient's hemoglobin was as high as 13.8 on 12/13/2021, the patient's hemoglobin dropped down to 8.4 and the patient was given a unit of packed RBC and the subsequent hemoglobin is at 9.4. The white cell count is at 25.3. Platelet count is 145. Creatinine is lower at 1.47. Sodium is at 136. LFTs are normal. The surgical wound site is dry clean and intact. 12/17/2021, seeing the patient for a follow-up. The patient remains lethargic, weak, he had a bout of emesis this morning. Nevertheless, he still has a functional colostomy. No active bleeding in the colostomy site and the patient is currently off anticoagulation. His white cell count remains elevated. No reported abdominal pain. The patient is still on TPN for nutritional support. He reports that he is hungry and he was to proceed with some clear liquid diet. Surgical wound site is dry clean and intact. Hemoglobin is remains stable. Meanwhile, the patient is stable white count and a stable creatinine. The patient's cardiac rhythm is remains stable. The patient remains on a combination of amiodarone 0.5 mg per minute and Mexitil 200 mg 3 times a day and the patient has not had any cardiac arrhythmias over the past 48 hours. Urine output is adequate. The patient developed diffuse edema lower extremity is bilaterally patient was given 20 mg of IV Lasix by nephrology with limited response. He is obviously retaining fluid and third spacing. The patient's hemoglobin is low. Meanwhile, the patient was admitted to 35.3 with hemoglobin of 10.8. BNP is at 43 with a creatinine of 1.4 and sodium level is at 136. LFTs are slightly elevated with overall improvement in the bilirubin is down to 1.0. Alkaline phosphatase is 213 with an ALT of 69 and AST of 62. 12/18/2021, condition is essentially unchanged and the patient continues to be lethargic. He is arousable. He is still having episodes of emesis and nausea. Note that his white cell count remains elevated and the patient 1 further had evaluation and the stool came back positive for C. diff and this was cultured from the colostomy. No evidence of any acute bleeding from the colostomy site. Hemoglobin is remains stable. Nevertheless, the patient has a component of C. diff colitis. Zosyn has been discontinued and the patient was started on oral vancomycin to 50 mg 4 times a day. Remains on TPN for nutritional support. Cardiac rhythm remains sinus. He has been switched to oral amiodarone. He is also on oral Mexitil. No evidence of any ventricular tachycardia. He does have third spacing and edema in all 4 extremities. The patient is receiving Dilaudid for pain control. The patient has hypoproteinemia and hyperlipidemia. The patient's creatinine was up to 1.8. He does have a component of non-anion gap metabolic acidosis with a serum bicarb of 19. Creatinine is at 1.76 with a mean of 51. Leukocytosis 51. Slightly elevated on today's evaluation. White cell count is still elevated at 34. 12/19/2021, the patient clinically the same. Nevertheless, the patient is having significant third spacing edema in all 4 extremities. Serum albumin is low. Serum protein is low. The patient is on TPN for nutritional support at a rate of 75 mL an hour. The patient is on O2 at 4 L per minute nasal cannula. At the same time, the patient is not having any major respiratory difficulties. He remains nothing by mouth. He remains nauseated. Colostomy site is functional. There is no active bleeding at this point in time. The patient has positive output of this is related to a component of C. diff colitis and the patient is currently on oral vancomycin as indicated to treat this underlying C. diff colitis. In terms of edema in third spacing, the patient will be placed on a combination of IV albumin and IV Lasix to optimize the fluid balance. The patient is afebrile. The patient is hemodynamically stable. The patient's cardiac rhythm is sinus. The patient is not having any significant arrhythmias. He remains on a combination of amiodarone and Mexitil regarding episodic wide complex ventricular tachycardia. He has a weak. His white cell count is at 31. Hemoglobin is 10. Creatinine is at one point I would again of 60. The patient has a component of non-anion gap metabolic acidosis with a serum bicarb of 17. AST is 160, ALT is 134, alkaline phosphatase 210. Note that all of these LFTs are essentially downtrending. IV Zosyn has been discontinued. The patient is receiving TPN for nutritional support. On 12/20/2021 patient seen in follow-up in intensive care unit, he is awake and alert, appears to be tachypneic, short of breath at rest, and with any conversation. He is on 4 L of oxygen with a pulse ox of 91%, and subsequently his flow was increased to 5 L in view of worsening dyspnea, patient is postoperative day #11, status post exploratory laparotomy, lysis of adhesions, repair of parastomal hernia, small bowel resection on 12/09/2021. His NG tube has been discontinued however patient is having somewhat of a hard time swallowing, he is coughing at times, bringing up some yellowish colored phlegm, his Zosyn was discontinued, his colostomy is producing liquid brown stool. Patient was afebrile overnight, but generally he appears to be quite significantly fluid overloaded, he remains on Lasix 40 mg twice daily. He was in positive 1500 mL net fluid balance over the last 24 hours. His chest x-ray today showing hypoventilatory changes and patchy airspace disease at the periphery of the right base and at the retrocardiac region at the left base. The possibility of infectious etiology is being considered. No fever or chills overnight. His abdominal incision is draining moderate amount of serous output, midportion of the incision is packed with silver ion packing. Generally patient has significant anasarca, third spacing and received 4 doses of 25% albumin. Today's labs have been reviewed, with blood cell count is elevated but improved and is down to 25.7, hemoglobin is 10.3, sodium is 135, potassium is 4.5, chloride is 107, CO2 is 19, B1 is 65, creatinine is 1.93. LFTs are improved. Objective - Vital Signs Vital signs: Vital Signs Temp 98.0 F 12/20/21 08:00 Pulse 84 12/20/21 11:15 Resp 33 H 12/20/21 11:15 BP 91/68 12/20/21 11:15 Pulse Ox 93 L 12/20/21 11:15 Intake & Output 12/19/21 12/20/21 12/20/21 18:59 06:59 18:59 Intake Total 1588.75 2054 713.23 Output Total 685 1145 550 Balance 903.75 909 163.23 Weight 96.2 kg Intake: IV 1015 1010 515 Albumin Human 25% 50 ml 100 100 In Empty Bag 1 bag @ 200 mls/hr IVPB DAILY@0900 [facility] Rx#:[id number] Mvi, Adult No.4 with Vit 825 900 375 K 10 ml Trace (Conc-1Ml/ Dose) 1 ml Sodium Phosphate 21 mmol Potassium Acetate 40 meq Magnesium Sulfate Syg 4. 06 meq Calcium Gluconate 1 gm In Amino Acids 5 %/ Dextrose 20 % 1,000 ml @ 75 mls/hr IV .BY DURATION [facility] Rx#:[id number] Sodium Chloride 0.9% 1, 90 110 40 000 ml @ 20 mls/hr IV . Q24H [facility] Rx#:[id number] Intake, IV Titration 473.75 1044 198.23 Amount Norepinephrine 4 mg In 0 Sodium Chloride 0.9% 250 ml @ 0.05 MCG/KG/MIN 14. 776 mls/hr IV .[id number] [facility] Rx#:[id number] Norepinephrine 8 mg In 98.23 Sodium Chloride 0.9% 250 ml @ 0.05 MCG/KG/MIN 9. 385 mls/hr IV .Q24H [facility] Rx#:[id number] Piperacillin-Tazobactam 3 100 .375 gm In Sodium Chloride 0.9% 100 ml @ 25 mls/hr IVPB Q8H [facility] Rx#: [id number] Sodium Phosphate 21 mmol 473.75 Potassium Acetate 40 meq Magnesium Sulfate Syg 4. 06 meq Calcium Gluconate 1 gm In Amino Acids 5 %/ Dextrose 20 % 1,000 ml @ 75 mls/hr IV .BY DURATION [facility] Rx#:[id number] Sodium Phosphate 9 mmol 1044 Sodium Acetate 20 meq Potassium Acetate 40 meq Magnesium Sulfate Syg 4. 06 meq Calcium Gluconate 1 gm In Amino Acids 5 %/ Dextrose 20 % 1,000 ml @ 75 mls/hr IV .BY DURATION [facility] Rx#:[id number] Oral 100 Output: Urine 685 1145 450 Stool 100 Other: Voiding Method Indwelling Catheter Indwelling Catheter Indwelling Catheter - Exam GENERAL EXAM: Alert, pleasant, 80-year-old white male, on 4 L of oxygen, tachypneic and dyspneic, with conversation comfortable in no apparent distress. HEAD: Normocephalic/atraumatic. EYES: Normal reaction of pupils, equal size. Conjunctiva pink, sclera white. NOSE: Clear with pink turbinates. THROAT: No erythema or exudates. NECK: No masses, no JVD, no thyroid enlargement, no adenopathy. CHEST: No chest wall deformity. Symmetrical expansion. LUNGS: Equal air entry with diminished breath sounds, and bibasilar crackles CVS: Regular rate and rhythm, normal S1 and S2, no gallops, no murmurs, no rubs ABDOMEN: Soft, nontender. No hepatosplenomegaly, normal bowel sounds, no guarding or rigidity. Midabdominal incision is draining moderate to large amount of serous output, shant are in place, a few shant were removed in the middle, and there is one packing with silver ion rope EXTREMITIES: No clubbing, significant generalized edema, involving upper and lower extremities, truncal edema no cyanosis, 2+ pulses and upper and lower extremities. MUSCULOSKELETAL: Muscle strength and tone normal. SPINE: No scoliosis or deformity SKIN: No rashes CENTRAL NERVOUS SYSTEM: Alert and oriented -3. No focal deficits, tone is normal in all 4 extremities. PSYCHIATRIC: Alert and oriented -3. Appropriate affect. Intact judgment and insight. - Labs CBC & Chem 7: 12/20/21 05:29 12/20/21 05:29 Labs: Abnormal Lab Results - Last 24 Hours (Table) 12/19/21 12/19/21 12/19/21 Range/Units 12:23 18:07 23:33 WBC (3.8-10.6) k/uL RBC (4.30-5.90) m/uL Hgb (13.0-17.5) gm/dL Hct (39.0-53.0) % Sodium (137-145) mmol/L Carbon Dioxide (22-30) mmol/L BUN (9-20) mg/dL Creatinine (0.66-1.25) mg/dL POC Glucose (mg/dL) 213 H 216 H 197 H (75-99) mg/dL Calcium (8.4-10.2) mg/dL AST (17-59) U/L ALT (4-49) U/L Alkaline Phosphatase (38-126) U/L Total Protein (6.3-8.2) g/dL Albumin (3.5-5.0) g/dL 12/20/21 12/20/21 Range/Units 05:29 05:29 WBC 25.7 H (3.8-10.6) k/uL RBC 3.32 L (4.30-5.90) m/uL Hgb 10.3 L (13.0-17.5) gm/dL Hct 32.9 L (39.0-53.0) % Sodium 135 L (137-145) mmol/L Carbon Dioxide 19 L (22-30) mmol/L BUN 65 H (9-20) mg/dL Creatinine 1.93 H (0.66-1.25) mg/dL POC Glucose (mg/dL) (75-99) mg/dL Calcium 7.2 L (8.4-10.2) mg/dL AST 93 H (17-59) U/L ALT 104 H (4-49) U/L Alkaline Phosphatase 189 H (38-126) U/L Total Protein 4.5 L (6.3-8.2) g/dL Albumin 2.2 L (3.5-5.0) g/dL Assessment and Plan Plan: Assessment: #1. Status post exploratory laparotomy, lysis of adhesions, repair of peristomal hernia, small bowel resection on 12/09/2021. NG tube has been discontinued, patient has completed a course of Zosyn. Currently postoperative day #11. CT scan of the abdomen showed hydropic gallbladder along with cholelithiasis, LFTs are improving. Patient has a functional colostomy. Patient did encounter some bleeding from the colostomy and was transfused with 1 unit packed red blood cells, patient remains off anticoagulation. Remains on TPN for nutritional support, NG tube has been discontinued. Oral intake is poor #2. Acute GI blood loss anemia with subsequent drop in hemoglobin, status post transfusion with 1 unit of packed red blood cells #3. Pseudomonas aeruginosa urinary tract infection, status post left ureteral stent for hydronephrosis and renal calculi on 12/09/2021. The patient has some indication for some mild right-sided hydronephrosis and this will be further discussed with urology. #4. C. diff colitis, on oral vancomycin #5. White complex tachycardia use since admission. Patient has known history of ischemic cardiomyopathy with previous history of coronary artery disease and V. tach. History of V. tach ablation and AICD #6. Transaminitis which may relate to underlying cholecystitis, consider acute cholecystitis, general surgery is on the case. CT scan of the abdomen showed hydropic gallbladder with cholelithiasis, currently LFTs are improving #7. Acute kidney injury on top of chronic kidney disease #8. History of CAD with previous stent placement #9. History of nonsustained VT with previous history VT ablation and AICD placement #10. History of sleep apnea syndrome #11. History of hyperlipidemia #12. History of hypertension #13. History of colon cancer status post colectomy and colostomy #14. History of DVT #15. Paroxysmal atrial fibrillation currently in sinus rhythm #16. Peripheral edema and third spacing secondary to hypoproteinemia Plan: We'll increase diuretics to 40 mg every 8 hours We'll add Zosyn back on Continue TPN Follow-up electrolytes and renal profile, chest x-ray tomorrow Currently patient is off the pressors, however blood pressures are a bit marginal We'll continue monitoring urine output Diet recommendations per surgery GI DVT prophylaxis Oral anticoagulation remains on hold Follow-up chest x-ray in the morning Continue to follow his course in the intensive care unit I have personally seen and examined the patient, performed the documentation and the assessment and plan as written. Number of minutes spent on the visit: [10] Time with Patient: Less than 30
--- NOTE | 2021-12-20 13:53 | P.PN ---
Subjective Patient was examined at bedside not complaining of any new symptomatology. Case was discussed with RN present at the ICU. Pressors have been discontinued Chad is maintaining slightly above 60 continue to watch closely hemodynamically instability we will reinitiate Levophed as per protocol. Objective - Vital Signs Vital signs: Vital Signs Temp 98.0 F 12/20/21 08:00 Pulse 84 12/20/21 11:15 Resp 33 H 12/20/21 11:15 BP 91/68 12/20/21 11:15 Pulse Ox 92 L 12/20/21 12:01 Intake & Output 12/19/21 12/20/21 12/20/21 18:59 06:59 18:59 Intake Total 1588.75 2054 713.23 Output Total 685 1145 550 Balance 903.75 909 163.23 Weight 96.2 kg 96.2 kg Intake: IV 1015 1010 515 Albumin Human 25% 50 ml 100 100 In Empty Bag 1 bag @ 200 mls/hr IVPB DAILY@0900 [facility] Rx#:[id number] Mvi, Adult No.4 with Vit 825 900 375 K 10 ml Trace (Conc-1Ml/ Dose) 1 ml Sodium Phosphate 21 mmol Potassium Acetate 40 meq Magnesium Sulfate Syg 4. 06 meq Calcium Gluconate 1 gm In Amino Acids 5 %/ Dextrose 20 % 1,000 ml @ 75 mls/hr IV .BY DURATION [facility] Rx#:[id number] Sodium Chloride 0.9% 1, 90 110 40 000 ml @ 20 mls/hr IV . Q24H [facility] Rx#:[id number] Intake, IV Titration 473.75 1044 198.23 Amount Norepinephrine 4 mg In 0 Sodium Chloride 0.9% 250 ml @ 0.05 MCG/KG/MIN 14. 776 mls/hr IV .[id number] [facility] Rx#:[id number] Norepinephrine 8 mg In 98.23 Sodium Chloride 0.9% 250 ml @ 0.05 MCG/KG/MIN 9. 385 mls/hr IV .Q24H [facility] Rx#:[id number] Piperacillin-Tazobactam 3 100 .375 gm In Sodium Chloride 0.9% 100 ml @ 25 mls/hr IVPB Q8H [facility] Rx#: [id number] Sodium Phosphate 21 mmol 473.75 Potassium Acetate 40 meq Magnesium Sulfate Syg 4. 06 meq Calcium Gluconate 1 gm In Amino Acids 5 %/ Dextrose 20 % 1,000 ml @ 75 mls/hr IV .BY DURATION [facility] Rx#:[id number] Sodium Phosphate 9 mmol 1044 Sodium Acetate 20 meq Potassium Acetate 40 meq Magnesium Sulfate Syg 4. 06 meq Calcium Gluconate 1 gm In Amino Acids 5 %/ Dextrose 20 % 1,000 ml @ 75 mls/hr IV .BY DURATION [facility] Rx#:[id number] Oral 100 Output: Urine 685 1145 450 Stool 100 Other: Voiding Method Indwelling Catheter Indwelling Catheter Indwelling Catheter - Exam Gen. patient is slightly uncomfortable Cardiovascular normal S1/S2 no murmurs or rubs heard Respiratory no wheezing or rhonchi appreciated Abdomen decreased bowel sounds, slightly tender Neuro patient is awake alert oriented 3 Psych very weak and cachectic appearing. Meza catheter in place - Labs CBC & Chem 7: 12/20/21 05:29 12/20/21 05:29 Labs: Abnormal Lab Results - Last 24 Hours (Table) 12/19/21 12/19/21 12/20/21 Range/Units 18:07 23:33 05:29 WBC 25.7 H (3.8-10.6) k/uL RBC 3.32 L (4.30-5.90) m/uL Hgb 10.3 L (13.0-17.5) gm/dL Hct 32.9 L (39.0-53.0) % Sodium (137-145) mmol/L Carbon Dioxide (22-30) mmol/L BUN (9-20) mg/dL Creatinine (0.66-1.25) mg/dL POC Glucose (mg/dL) 216 H 197 H (75-99) mg/dL Calcium (8.4-10.2) mg/dL AST (17-59) U/L ALT (4-49) U/L Alkaline Phosphatase (38-126) U/L Total Protein (6.3-8.2) g/dL Albumin (3.5-5.0) g/dL 12/20/21 12/20/21 Range/Units 05:29 11:43 WBC (3.8-10.6) k/uL RBC (4.30-5.90) m/uL Hgb (13.0-17.5) gm/dL Hct (39.0-53.0) % Sodium 135 L (137-145) mmol/L Carbon Dioxide 19 L (22-30) mmol/L BUN 65 H (9-20) mg/dL Creatinine 1.93 H (0.66-1.25) mg/dL POC Glucose (mg/dL) 163 H (75-99) mg/dL Calcium 7.2 L (8.4-10.2) mg/dL AST 93 H (17-59) U/L ALT 104 H (4-49) U/L Alkaline Phosphatase 189 H (38-126) U/L Total Protein 4.5 L (6.3-8.2) g/dL Albumin 2.2 L (3.5-5.0) g/dL Assessment and Plan Assessment: Assessment: #1 sepsis secondary to urinary company urinary tract infection -pseudomonas #2 small bowel obstruction can be secondary to underlying adhesions versus parastomal hernia? #3 coronary disease status post stent 2 #4 hyperlipidemia #5 essential hypertension #6 electrolyte abnormality secondary to above #7 CKD Secondary to Dehydration/Prerenal #8 transaminitis secondary to above #9 C. diff infection Plan: -Admit to medicine for close monitoring -Aspiration/fall precaution/hob30 -Urine cultures reviewed showing Pseudomonas. Urine cultures positive susceptible to Zosyn completed 12/16 -Stent placed by urology needs outpatient follow-up as well. -Continue with oral vancomycin for treatment of C. diff. -Replace electrolyte when necessary -TPN management as per surgical team. -DVT prophylaxis/GI px per ICU
[2021-12-20] MEDS: SODIUM CHLORIDE 0.9% 1,000 ML IV SCH (14:15)
[2021-12-20 17:52] LABS: Glucose,Whole Blood 174 mg/dL (75-99)
[2021-12-20] MEDS: TAMSULOSIN 0.4 MG CAP.ER.24H PO SCH (20:29)
[2021-12-20] MEDS: ATORVASTATIN 40 MG TAB PO SCH (20:29)
[2021-12-20] MEDS: INSULIN DETEMIR (LEVEMIR) 100 UNIT/ML SYR SQ SCH (20:29)
[2021-12-20] MEDS: NOREPINEPHRINE 8 MG in SODIUM CHLORIDE 0.9% 250 ML IV SCH (21:33)
[2021-12-21 00:02] LABS: Glucose,Whole Blood 203 mg/dL (75-99)
[2021-12-21] MEDS: MEXILETINE 200 MG CAP PO SCH ×3 (00:31→18:11)
[2021-12-21] MEDS: INSULIN ASPART (NovoLOG) 100 UNIT/ML VIAL SQ SCH ×4 (00:31→18:12)
[2021-12-21] MEDS: FUROSEMIDE 10 MG/ML 4 ML VIAL IV SCH ×4 (03:49→23:59)
[2021-12-21] MEDS: PIPERACILLIN-TAZOBACTAM 3.375 GM in SODIUM CHLORIDE 0.9% 100 ML IVPB SCH ×3 (03:50→18:11)
[2021-12-21 05:41] LABS: Glucose,Whole Blood 166 mg/dL (75-99)
--- NOTE | 2021-12-21 06:23 | XR ---
EXAMINATION TYPE: XR chest 1V portable DATE OF EXAM: 12/21/2021 CLINICAL HISTORY: Difficulty breathing progress study. TECHNIQUE: Single AP portable upright view of the chest is obtained. COMPARISON: Chest x-ray from one day earlier and older studies. FINDINGS: Persistent cardiomegaly with dual lead pacemaker/AICD along with atherosclerotic and ectat ic thoracic aorta. Persistent low lung volumes with increasing bilateral predominantly peripheral opa cities greatest in the left lung. Osseous structures are demineralized. Underlying scoliosis is redem onstrated. IMPRESSION: Cardiomegaly with left greater than right increasing opacities suggest worsening edema an d/or infiltrates. Correlate for worsening CHF exacerbation versus multifocal infection.
[2021-12-21 07:25] LABS: Basophils % (A) 0 %; Eosinophils # (A) 0.4 k/uL (0-0.7); Eosinophils % (A) 3 %; HCT 29.3 % (39.0-53.0); HGB 9.2 gm/dL (13.0-17.5); Hypochromasia Moderate; Lymphocytes # (A) 0.3 k/uL (1.0-4.8); Lymphocytes % (A) 2 %; MCH 31.6 pg (25.0-35.0); MCHC 31.5 g/dL (31.0-37.0); MCV 100.3 fL (80.0-100.0); Macrocytosis Slight; Mean Platelet Volume 10.2; Monocytes # (A) 0.5 k/uL (0-1.0); Monocytes % (A) 3 %; Neutrophils # (A) 14.3 k/uL (1.3-7.7); Neutrophils % (A) 92 %; Platelet Count 231 k/uL (150-450); RBC 2.92 m/uL (4.30-5.90); RDW 14.2 % (11.5-15.5); WBC 15.6 k/uL (3.8-10.6)
[2021-12-21 07:39] LABS: Albumin 2.4 g/dL (3.5-5.0); Calcium 7.4 mg/dL (8.4-10.2); Ionized Calcium 4.7 mg/dL (4.5-5.3); Magnesium 2.3 mg/dL (1.6-2.3); Phosphorus 4.6 mg/dL (2.5-4.5); Potassium 4.4 mmol/L (3.5-5.1); Total Bilirubin 1.4 mg/dL (0.2-1.3); Total Protein 4.7 g/dL (6.3-8.2)
[2021-12-21] MEDS: ALBUMIN HUMAN 25% 50 ML in EMPTY BAG 1 BAG IVPB SCH ×2 (07:45→09:11)
[2021-12-21] MEDS: FAMOTIDINE 20 MG/2 ML VIAL IV SCH (07:45)
[2021-12-21] MEDS: AMIODARONE 200 MG TAB PO SCH ×2 (07:46→20:36)
[2021-12-21] MEDS: SPIRONOLACTONE 25 MG TAB PO SCH (07:46)
[2021-12-21] MEDS: VANCOMYCIN ORAL SOLUTION 250 MG/5 ML BOTTLE PO SCH ×4 (07:46→22:00)
[2021-12-21] MEDS: FINASTERIDE 5 MG TAB PO SCH (07:46)
--- NOTE | 2021-12-21 07:46 | P.PN ---
Subjective Progress Note Date: 12/21/21 PROGRESS NOTE The patient is an 80-year-old male with known history of CAD status post stenting, cardiomyopathy him of ventricle tachycardia and ICD implantation who underwent exploratory laparotomy and colostomy. He had episode of recurrent ventricular tachycardia, has been stable after the addition of amiodarone and mexiletine. He continues to be in sinus mechanism. His blood pressure is stable. He continues to have peripheral edema but his urinary output has been stable. He denies any chest discomfort or dizziness. He is confused at times. There is no further evidence of ventricular tachycardia. His colostomy is working. He continues to be on amiodarone 400 mg twice a day, Lipitor 40 mg daily, Lasix 40 mg IV every 8 hours insulin, mexiletine 200 mg every 8 hours, spironolactone 12-1/2 mg daily PHYSICAL EXAMINATION: Blood pressure ranging between 90 and 110 heart rate in the 80s LUNGS: Clear to auscultation anteriorly HEART: Regular rate and rhythm, S1, S2. No S3. systolic ejection murmur ABDOMEN: Soft, nontender, no organomegaly, colostomy bag in place EXTREMETIES: 1+ to 2+ edema LAB: BUN 77, creatinine 2.4 , potassium 4.4, hemoglobin 9.2, white blood cell of 15.6. Chest x-ray shows worsening edema and possible infiltrate IMPRESSION: 1. Status post exploratory laparotomy and colostomy 2. Ventricle tachycardia, stable on present regimen 3. History of coronary artery disease and cardiomyopathy 4. Worsening renal failure 5. Paroxysmal atrial fibrillation, now in sinus mechanism 6. Anemia 7. Third spacing with peripheral edema PLAN: 1. Continue present dose of amiodarone for a total of one week then decrease to 200 mg twice a day 2. Follow EKG 3. Add aspirin 4. Follow renal function closely 5. Depending on his progress further recommendations will be made. Objective - Vital Signs Vital signs: Vital Signs Temp 98.5 F 12/21/21 04:00 Pulse 83 12/21/21 07:00 Resp 40 H 12/21/21 07:00 BP 90/50 12/21/21 07:00 Pulse Ox 95 12/21/21 07:00 Intake & Output 12/20/21 12/21/21 12/21/21 18:59 06:59 18:59 Intake Total 1508.23 1414.657 Output Total 1125 815 Balance 383.23 599.657 Weight 96.2 kg 93 kg Intake: IV 665 130 Albumin Human 25% 50 ml 200 In Empty Bag 1 bag @ 200 mls/hr IVPB DAILY@0900 [facility] Rx#:[id number] Mvi, Adult No.4 with Vit 375 K 10 ml Trace (Conc-1Ml/ Dose) 1 ml Sodium Phosphate 21 mmol Potassium Acetate 40 meq Magnesium Sulfate Syg 4. 06 meq Calcium Gluconate 1 gm In Amino Acids 5 %/ Dextrose 20 % 1,000 ml @ 75 mls/hr IV .BY DURATION [facility] Rx#:[id number] Sodium Chloride 0.9% 1, 90 130 000 ml @ 20 mls/hr IV . Q24H [facility] Rx#:[id number] Intake, IV Titration 723.23 1104.657 Amount Mvi, Adult No.4 with Vit 525 975 K 10 ml Trace (Conc-1Ml/ Dose) 1 ml Sodium Phosphate 9 mmol Sodium Acetate 20 meq Potassium Acetate 40 meq Magnesium Sulfate Syg 4.06 meq Calcium Gluconate 1 gm In Amino Acids 5 %/Dextrose 20 % 1,000 ml @ 75 mls/ hr IV .BY DURATION [facility] Rx #:[id number] Norepinephrine 8 mg In 98.23 29.657 Sodium Chloride 0.9% 250 ml @ 0.05 MCG/KG/MIN 9. 385 mls/hr IV .Q24H [facility] Rx#:[id number] Piperacillin-Tazobactam 3 100 100 .375 gm In Sodium Chloride 0.9% 100 ml @ 25 mls/hr IVPB Q8H [facility] Rx#: [id number] Oral 120 180 Output: Urine 1025 715 Stool 100 100 Other: Voiding Method Indwelling Catheter Indwelling Catheter - Labs CBC & Chem 7: 12/21/21 06:57 12/20/21 05:29 Labs: Abnormal Lab Results - Last 24 Hours (Table) 12/20/21 12/20/21 12/21/21 Range/Units 11:43 17:51 00:00 WBC (3.8-10.6) k/uL RBC (4.30-5.90) m/uL Hgb (13.0-17.5) gm/dL Hct (39.0-53.0) % MCV (80.0-100.0) fL Neutrophils # (1.3-7.7) k/uL Lymphocytes # (1.0-4.8) k/uL POC Glucose (mg/dL) 163 H 174 H 203 H (75-99) mg/dL 12/21/21 12/21/21 Range/Units 05:40 06:57 WBC 15.6 H (3.8-10.6) k/uL RBC 2.92 L (4.30-5.90) m/uL Hgb 9.2 L (13.0-17.5) gm/dL Hct 29.3 L (39.0-53.0) % MCV 100.3 H (80.0-100.0) fL Neutrophils # 14.3 H (1.3-7.7) k/uL Lymphocytes # 0.3 L (1.0-4.8) k/uL POC Glucose (mg/dL) 166 H (75-99) mg/dL
[2021-12-21] MEDS: [UNRECOGNIZED DRUG - OTHER] IV SCH ×16 (10:38→22:23)
[2021-12-21] MEDS: SODIUM PHOSPHATE IV SCH ×16 (10:38→22:23)
[2021-12-21] MEDS: SODIUM ACETATE IV SCH ×16 (10:38→22:23)
[2021-12-21] MEDS: DOBUTamine DRIP 500 MG in DEXTROSE/WATER 1 250ML.BAG IV SCH (10:38)
[2021-12-21] MEDS: POTASSIUM ACETATE IV SCH ×16 (10:38→22:23)
[2021-12-21 11:54] LABS: Glucose,Whole Blood 161 mg/dL (75-99)
--- NOTE | 2021-12-21 12:03 | P.PN ---
Subjective Progress Note Date: 12/21/21 Principal diagnosis: Nausea, vomiting and diarrhea 80-year-old male who was initially seen in the emergency department, on 12/08/2021, for nausea and vomiting. For a week or so prior to admission, the patient admits to ongoing nausea and vomiting. He apparently told the ER nae briscoe that anything he eats, he vomits. He was not able to take his usual medications. The patient was recently diagnosed with an obstructive kidney stone, and was scheduled for a ureteral stent. He apparently denied fever when he was in the emergency department. He does have some minimal stool output from his colostomy. He denied any abdominal pain. We are asked to see him today, after his been in the hospital since December 08. Apparently he was found to have hypotension, and wasn't looking very good, and we decided to move him to the intensive care unit for further monitoring and management. 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 Also, on December 09, the patient underwent an exploratory laparotomy, extensive lysis of adhesions, and repair of parastomal hernia. The patient also had a small bowel resection. This was done because of bowel obstruction. Urine sampling from December 08 revealed evidence of pseudomonas aeruginosa. White count 22.68, hemoglobin 10.9, hematocrit 33.7, and platelet count 219,000. Sodium 141, potassium 3.8, chlorides 111, CO2 14, anion gap 17, BUN 38, and creatinine 1.8. AST was 387, and ALT was 467. Those are both increasing. Also, urine sampling from December 18 revealed what appears to be a urinary tract infection. Chest x-ray back from December 08 did not show anything acute. Cardiology saw the patient in consultation and ordered amiodarone, lidocaine, and Lopressor. EKG done on 5 N., revealed a wide-complex tachycardia, and a new bundle branch. history significant for CAD and prior stenting of the RCA and LAD as well as ischemic cardiomyopathy and status post AICD and also status post VT ablation in 202012/13/2021, the patient is in the intensive care unit. His current cardiac rhythm is sinus. He is having runs of episodic atrial fibrillation. There is still having episodes of nonsustained ventricular tachycardia. The patient was seen by cardiology. He remains on amiodarone drip which is running at 0.5 mcg/kg per minute and the patient remains on IV heparin. This morning, cardiology evaluated the patient and put him on a beta christelle and the patient is currently on Toprol-XL 25 mg twice a day and the patient was also started on Mexitil at a dose of 150 milligrams by mouth twice a day. The patient's blood pressure currently is at 124/75. He is on no pressors. He is receiving lactated Ringer at the rate of 20 mL an hour. He is free of any chest pain. His blood work shows a BUN of 57 with a creatinine of 1.8 and the creatinine is at 3.8 and the sodium level is at 140. Normal potassium of 3.8. Lactic acid level was down to 1.8. Troponins were 0.04 and 0.03 respectively 2. His pro- calcitonin level was 1.1. Note that his white cell count is at 38 which is comparable to yesterday and the patient also has a hemoglobin of 13.8 and a platelet count of 190. As mentioned, he had a pseudomonal urinary tract infection. The patient will remains on IV Zosyn. Echo was obtained this morning and the results are still pending for now. His liver function tests were also abnormal. His AST of 157 and ALT of 313 and an alkaline phosphatase of 309. His bilirubin is currently at 1.9. Ultrasound of the liver that was obtained on 12/11/2021 showed limitation due to his body habitus and bowel gas pattern. There was cholelithiasis with distention of the gallbladder possibly indicating an acute cholecystitis. There was still evidence of hydronephrosis of the right kidney stone measuring 1.5 cm in the right kidney was mildly hydronephrotic. His original CAT scan of the abdomen and pelvis that was on 12/08/2021 showed high-grade mechanical small bowel obstruction with transition point in the left lower quadrant in addition to a parastomal hernia. There was also significant wall thickening of the colon just proximal to the colostomy and surrounding area of an acute inflammatory change with her underlying colitis/diverticulitis not being completely excluded. There was also left distal ureteral obstruction with stone and moderate degree of left-sided hydroureter and hydronephrosis. He has NGT and the output was 400 cc over 12 hour 12/14 2021, the patient is being seen in the intensive care unit. This morning, the patient is in a normal sinus rhythm. He did not have any wide-complex tachycardic events overnight. He is currently on a combination of Toprol-XL 25 mg twice a day, Mexitil 150 mg by mouth twice a day and the patient is starting on by mouth amiodarone coming off the amiodarone drip. I was quite concerned about his abdominal situation yesterday and there was a concern of a acute cholecystitis based on the ultrasound findings. There was also concern about ongoing mechanical obstruction as the colostomy stoma looked pale. Based on that, CAT scan of the abdomen was obtained yesterday and the results were discussed with the general surgeon. In summary, a detailed description of the abdominal findings was given in the CAT scan. Based on my understanding with the surgeons evaluation, the patient still has an area of a parastomal hernia which is fat filled and there is some ongoing ileus, unsure of there is any o ngoing mechanical obstruction of the small bowel. There is an expected outcome following surgery. NG tube was in place and the patient had a moderate size hiatal hernia. There was contrast backing up into the esophagus. At the same time, there was a foci of air in the right upper quadrant which could be potentially postsurgical in nature. As such, there was no indication for any acute abdomen. There was generalized anasarca and moderate degree of abdominal and pelvic ascites. There was also a small and new bilateral pleural effusion more so on the right compared to the left lung with some adjacent atelectasis and some areas of patchy groundglass pulmonary infiltrates in lung bases and interval placement of a left ureteral stent and this was done by urology for obstructive uropathy. Gallbladder itself was hydropic with cholelithiasis. There was some possible surrounding inflammation versus changes related to anasarca. Nevertheless, on examination, the patient does not have any significant tenderness in the right upper quadrant. In terms of his LFTs, the patient's ALT is 54 and the AST is 127 and the alkaline phosphatase is 181. His current bilirubin is at 1.6. Note that his LFTs have been improving consistently. His creatinine is down to 1.6 with a BUN of 55 and his sodium level is at 136. White cell count is lower down to 33 with a hemoglobin of 10.7 and platelet count of 173. The patient remains on antibiotics with IV Zosyn. On reevaluation of the stoma, the stoma itself looks pale and there is no output in the colostomy bag. NG tube is in place and output has been in the order of 300 mL overnight. The patient remains in IV heparin for now. 2021, I'm happy to see that the patient is hemodynamically stable. No episodes of ventricular tachycardia overnight. The patient remains on Toprol-XL 25 mg, Mexitil 150 mg by mouth twice a day and he is also on oral amiodarone at a dose of 400 mg twice a day. His current cardiac rhythm is sinus. He is hemodynamically stable. He remains on IV heparin drip. Meanwhile, the patient is on TPN for nutritional support. I'm pleased to see that the patient has gas and positive stool output is colostomy bag. This was noted yesterday. The average output is minimal at this point in time. The patient was offered some clear liquid diet yesterday which he was able to tolerate. No nausea. No emesis. No abdominal pain or distention. No pain in his right quadrant of his abdomen knowing that the patient has a hydropic gallbladder and cholelithiasis. He remains on IV Zosyn regarding a pseudomonal UTI and intra-abdominal coverage following is abdominal surgery. At the same time, the patient's white cell count is still elevated from yesterday and repeat white cell count is pending from today. His white cell count from yesterday was 33. The patient's electrolytes are showing a potassium of 3.0 to be replaced. Creatinine is stable at 1.6 and a BUN of 55. His liver function tests were improving and they're essentially still improving with a AST of 88, ALT of 160, bilirubin is at 1.1. His total protein is at 3.6 with an albumin level of 1.6. Triglyceride levels are 109. Overall fluid balance over the past 24 hours is been +2.4 L. His current IV fluids are 0.9 at 75 and this is to be cut down to KVO. He is on TPN which is running at the rate of 30 mL an hour. He is arousable. He is awake and alert. Follows commands. Overall, quite weak and debilitated. 12/16/2021, I'm seeing the patient for a follow-up. The patient is awake and alert and arousable and answering questions appropriately. He remains quite weak and debilitated. Noted the patient has not had any cardiac arrhythmias. The patient was on IV heparin regarding approximately atrial fibrillation subsequently the patient started having bloody output through the colostomy. The patient accordingly, was taken off the IV heparin. This morning, the output in the colostomy bag is quite bloody and it doesn't look to be melanotic. As such, this could be a GI bleed related to anticoagulation. At evaluation was held and the patient remains in with an empty stable at this point. Most recent blood count is at 9.4 hemoglobin and the patient has a white cell count 25.3. Creatinine stable at 1.47 and the creatinine is slightly improved compared to yesterday. The patient is currently nothing by mouth. Patient is receiving TPN for nutritional support. The patient remains on IV Zosyn regarding Pseudomonas UTI. Using incentive spirometer. No other significant events otherwise for now. General surgeries on the case regarding this ongoing GI bleed. Note that the patient's hemoglobin was as high as 13.8 on 12/13/2021, the patient's hemoglobin dropped down to 8.4 and the patient was given a unit of packed RBC and the subsequent hemoglobin is at 9.4. The white cell count is at 25.3. Platelet count is 145. Creatinine is lower at 1.47. Sodium is at 136. LFTs are normal. The surgical wound site is dry clean and intact. 12/17/2021, seeing the patient for a follow-up. The patient remains lethargic, weak, he had a bout of emesis this morning. Nevertheless, he still has a functional colostomy. No active bleeding in the colostomy site and the patient is currently off anticoagulation. His white cell count remains elevated. No reported abdominal pain. The patient is still on TPN for nutritional support. He reports that he is hungry and he was to proceed with some clear liquid diet. Surgical wound site is dry clean and intact. Hemoglobin is remains stable. Meanwhile, the patient is stable white count and a stable creatinine. The patient's cardiac rhythm is remains stable. The patient remains on a combination of amiodarone 0.5 mg per minute and Mexitil 200 mg 3 times a day and the patient has not had any cardiac arrhythmias over the past 48 hours. Urine output is adequate. The patient developed diffuse edema lower extremity is bilaterally patient was given 20 mg of IV Lasix by nephrology with limited response. He is obviously retaining fluid and third spacing. The patient's hemoglobin is low. Meanwhile, the patient was admitted to 35.3 with hemoglobin of 10.8. BNP is at 43 with a creatinine of 1.4 and sodium level is at 136. LFTs are slightly elevated with overall improvement in the bilirubin is down to 1.0. Alkaline phosphatase is 213 with an ALT of 69 and AST of 62. 12/18/2021, condition is essentially unchanged and the patient continues to be lethargic. He is arousable. He is still having episodes of emesis and nausea. Note that his white cell count remains elevated and the patient 1 further had evaluation and the stool came back positive for C. diff and this was cultured from the colostomy. No evidence of any acute bleeding from the colostomy site. Hemoglobin is remains stable. Nevertheless, the patient has a component of C. diff colitis. Zosyn has been discontinued and the patient was started on oral vancomycin to 50 mg 4 times a day. Remains on TPN for nutritional support. Cardiac rhythm remains sinus. He has been switched to oral amiodarone. He is also on oral Mexitil. No evidence of any ventricular tachycardia. He does have third spacing and edema in all 4 extremities. The patient is receiving Dilaudid for pain control. The patient has hypoproteinemia and hyperlipidemia. The patient's creatinine was up to 1.8. He does have a component of non-anion gap metabolic acidosis with a serum bicarb of 19. Creatinine is at 1.76 with a mean of 51. Leukocytosis 51. Slightly elevated on today's evaluation. White cell count is still elevated at 34. 12/19/2021, the patient clinically the same. Nevertheless, the patient is having significant third spacing edema in all 4 extremities. Serum albumin is low. Serum protein is low. The patient is on TPN for nutritional support at a rate of 75 mL an hour. The patient is on O2 at 4 L per minute nasal cannula. At the same time, the patient is not having any major respiratory difficulties. He remains nothing by mouth. He remains nauseated. Colostomy site is functional. There is no active bleeding at this point in time. The patient has positive output of this is related to a component of C. diff colitis and the patient is currently on oral vancomycin as indicated to treat this underlying C. diff colitis. In terms of edema in third spacing, the patient will be placed on a combination of IV albumin and IV Lasix to optimize the fluid balance. The patient is afebrile. The patient is hemodynamically stable. The patient's cardiac rhythm is sinus. The patient is not having any significant arrhythmias. He remains on a combination of amiodarone and Mexitil regarding episodic wide complex ventricular tachycardia. He has a weak. His white cell count is at 31. Hemoglobin is 10. Creatinine is at one point I would again of 60. The patient has a component of non-anion gap metabolic acidosis with a serum bicarb of 17. AST is 160, ALT is 134, alkaline phosphatase 210. Note that all of these LFTs are essentially downtrending. IV Zosyn has been discontinued. The patient is receiving TPN for nutritional support. On 12/20/2021 patient seen in follow-up in intensive care unit, he is awake and alert, appears to be tachypneic, short of breath at rest, and with any conversation. He is on 4 L of oxygen with a pulse ox of 91%, and subsequently his flow was increased to 5 L in view of worsening dyspnea, patient is postoperative day #11, status post exploratory laparotomy, lysis of adhesions, repair of parastomal hernia, small bowel resection on 12/09/2021. His NG tube has been discontinued however patient is having somewhat of a hard time swallowing, he is coughing at times, bringing up some yellowish colored phlegm, his Zosyn was discontinued, his colostomy is producing liquid brown stool. Patient was afebrile overnight, but generally he appears to be quite significantly fluid overloaded, he remains on Lasix 40 mg twice daily. He was in positive 1500 mL net fluid balance over the last 24 hours. His chest x-ray today showing hypoventilatory changes and patchy airspace disease at the periphery of the right base and at the retrocardiac region at the left base. The possibility of infectious etiology is being considered. No fever or chills overnight. His abdominal incision is draining moderate amount of serous output, midportion of the incision is packed with silver ion packing. Generally patient has significant anasarca, third spacing and received 4 doses of 25% albumin. Today's labs have been reviewed, with blood cell count is elevated but improved and is down to 25.7, hemoglobin is 10.3, sodium is 135, potassium is 4.5, chloride is 107, CO2 is 19, B1 is 65, creatinine is 1.93. LFTs are improved. On 12/21/2021 patient seen in follow-up in the intensive care unit. Still quite dyspneic, tachypneic, he was placed on CPAP support today with a pressure of 10 cm of water, and FiO2 currently is at 60%. His pulse ox is 96%, tolerating CPAP support well, still tachypneic, he is achieving tidal volumes of 799, his respiratory rate is 25-33, minute ventilation is 28 L/m. Remains on Lasix of 40 mg every 8 hours. She was started on Dobutrex at 2.5 mics per kilo per minute. Patient is again in +2 L net fluid balance over the last 24 hours. He has generalized edema in his upper and lower extremities, torso. Urine output is a new order off 85-100 ML per hour. Patient continues on TPN at 75 ML per hour. Today's chest x-ray showing cardiomegaly with left greater than right increasing opacities suggesting worsening pulmonary edema and/or infiltrate. Patient remains on Zosyn, his urine culture was positive for pseudomonas. Afebrile overnight. His blood pressures are marginal, was systolic in the 70s and 80s and occasionally in the 90s, with diastolic in the 50s and the mean of 55-65. Abdomen is nontender, his colostomy is producing some liquid stool, he remains on oral vancomycin for C. diff colitis. A total of 200 mL in liquid output from his colostomy in the last 24 hours. Today's labs have been reviewed, there is improvement in his white blood cell count which is down to 15.6, hemoglobin is 8.2, platelet count is 231, sodium is 137, potassium is 4.4, chloride is 108, CO2 is 21, BUN is 77, creatinine is 2.4 200 today's labs. Objective - Vital Signs Vital signs: Vital Signs Temp 98.5 F 12/21/21 04:00 Pulse 85 12/21/21 11:30 Resp 25 H 12/21/21 11:30 BP 89/67 12/21/21 11:30 Pulse Ox 95 12/21/21 11:30 Intake & Output 12/20/21 12/21/21 12/21/21 18:59 06:59 18:59 Intake Total 1508.23 2458.657 510 Output Total 1125 815 400 Balance 383.23 1643.657 110 Weight 96.2 kg 93 kg Intake: IV 665 130 110 Albumin Human 25% 50 ml 200 100 In Empty Bag 1 bag @ 200 mls/hr IVPB DAILY@0900 [facility] Rx#:[id number] Mvi, Adult No.4 with Vit 375 K 10 ml Trace (Conc-1Ml/ Dose) 1 ml Sodium Phosphate 21 mmol Potassium Acetate 40 meq Magnesium Sulfate Syg 4. 06 meq Calcium Gluconate 1 gm In Amino Acids 5 %/ Dextrose 20 % 1,000 ml @ 75 mls/hr IV .BY DURATION [facility] Rx#:[id number] Sodium Chloride 0.9% 1, 90 130 10 000 ml @ 20 mls/hr IV . Q24H [facility] Rx#:[id number] Intake, IV Titration 723.23 2148.657 400 Amount Mvi, Adult No.4 with Vit 525 975 300 K 10 ml Trace (Conc-1Ml/ Dose) 1 ml Sodium Phosphate 9 mmol Sodium Acetate 20 meq Potassium Acetate 40 meq Magnesium Sulfate Syg 4.06 meq Calcium Gluconate 1 gm In Amino Acids 5 %/Dextrose 20 % 1,000 ml @ 75 mls/ hr IV .BY DURATION [facility], [facility] Rx #:[id number] Norepinephrine 8 mg In 98.23 29.657 Sodium Chloride 0.9% 250 ml @ 0.05 MCG/KG/MIN 9. 385 mls/hr IV .Q24H [facility] Rx#:[id number] Piperacillin-Tazobactam 3 100 100 100 .375 gm In Sodium Chloride 0.9% 100 ml @ 25 mls/hr IVPB Q8H [facility] Rx#: [id number] Sodium Phosphate 9 mmol 1044 Sodium Acetate 20 meq Potassium Acetate 40 meq Magnesium Sulfate Syg 4. 06 meq Calcium Gluconate 1 gm In Amino Acids 5 %/ Dextrose 20 % 1,000 ml @ 75 mls/hr IV .BY DURATION [facility] Rx#:[id number] Oral 120 180 Output: Urine 1025 715 400 Stool 100 100 Other: Voiding Method Indwelling Catheter Indwelling Catheter Indwelling Catheter - Exam GENERAL EXAM: Alert, pleasant, 80-year-old white male, on CPAP at 10 cm of water, and FiO2 of 60% tachypneic and dyspneic, with conversation HEAD: Normocephalic/atraumatic. EYES: Normal reaction of pupils, equal size. Conjunctiva pink, sclera white. NOSE: Clear with pink turbinates. THROAT: No erythema or exudates. NECK: No masses, no JVD, no thyroid enlargement, no adenopathy. CHEST: No chest wall deformity. Symmetrical expansion. LUNGS: Equal air entry with diminished breath sounds, and bibasilar crackles CVS: Regular rate and rhythm, normal S1 and S2, no gallops, no murmurs, no rubs ABDOMEN: Soft, nontender. No hepatosplenomegaly, normal bowel sounds, no guarding or rigidity. Midabdominal incision is draining moderate to large amount of serous output, shant are in place, a few shnat were removed in the middle, and there is packing with silver ion rope. Left abdominal colostomy in place with small amount of liquid greenish stool EXTREMITIES: No clubbing, significant generalized edema, involving upper and lower extremities, truncal edema no cyanosis, 2+ pulses and upper and lower extremities. MUSCULOSKELETAL: Muscle strength and tone normal. SPINE: No scoliosis or deformity SKIN: No rashes CENTRAL NERVOUS SYSTEM: Alert and oriented -3. No focal deficits, tone is normal in all 4 extremities. PSYCHIATRIC: Alert and oriented -3. Appropriate affect. Intact judgment and insight. - Labs CBC & Chem 7: 12/21/21 06:57 12/21/21 06:57 Labs: Abnormal Lab Results - Last 24 Hours (Table) 12/20/21 12/21/21 12/21/21 Range/Units 17:51 00:00 05:40 WBC (3.8-10.6) k/uL RBC (4.30-5.90) m/uL Hgb (13.0-17.5) gm/dL Hct (39.0-53.0) % MCV (80.0-100.0) fL Neutrophils # (1.3-7.7) k/uL Lymphocytes # (1.0-4.8) k/uL Chloride (98-107) mmol/L Carbon Dioxide (22-30) mmol/L BUN (9-20) mg/dL Creatinine (0.66-1.25) mg/dL Glucose (74-99) mg/dL POC Glucose (mg/dL) 174 H 203 H 166 H (75-99) mg/dL Calcium (8.4-10.2) mg/dL Phosphorus (2.5-4.5) mg/dL Total Bilirubin (0.2-1.3) mg/dL AST (17-59) U/L ALT (4-49) U/L Alkaline Phosphatase (38-126) U/L Total Protein (6.3-8.2) g/dL Albumin (3.5-5.0) g/dL 12/21/21 12/21/21 Range/Units 06:57 06:57 WBC 15.6 H (3.8-10.6) k/uL RBC 2.92 L (4.30-5.90) m/uL Hgb 9.2 L (13.0-17.5) gm/dL Hct 29.3 L (39.0-53.0) % MCV 100.3 H (80.0-100.0) fL Neutrophils # 14.3 H (1.3-7.7) k/uL Lymphocytes # 0.3 L (1.0-4.8) k/uL Chloride 108 H (98-107) mmol/L Carbon Dioxide 21 L (22-30) mmol/L BUN 77 H (9-20) mg/dL Creatinine 2.42 H (0.66-1.25) mg/dL Glucose 145 H (74-99) mg/dL POC Glucose (mg/dL) (75-99) mg/dL Calcium 7.4 L (8.4-10.2) mg/dL Phosphorus 4.6 H (2.5-4.5) mg/dL Total Bilirubin 1.4 H (0.2-1.3) mg/dL AST 64 H (17-59) U/L ALT 72 H (4-49) U/L Alkaline Phosphatase 135 H (38-126) U/L Total Protein 4.7 L (6.3-8.2) g/dL Albumin 2.4 L (3.5-5.0) g/dL Assessment and Plan Plan: Assessment: #1. Status post exploratory laparotomy, lysis of adhesions, repair of peristomal hernia, small bowel resection on 12/09/2021. NG tube has been discontinued, patient has completed a course of Zosyn. Currently postoperative day #11. CT scan of the abdomen showed hydropic gallbladder along with cholelithiasis, LFTs are improving. Patient has a functional colostomy. Patient did encounter some bleeding from the colostomy and was transfused with 1 unit packed red blood cells, patient remains off anticoagulation. Remains on TPN for nutritional support, NG tube has been discontinued. #2. Acute hypoxic respiratory failure related to acute exacerbation of systolic CHF, and sepsis, currently on IV Lasix, dobutamine, and CPAP support #3. Acute GI blood loss anemia with subsequent drop in hemoglobin, status post transfusion with 1 unit of packed red blood cells #4. Pseudomonas aeruginosa urinary tract infection, status post left ureteral stent for hydronephrosis and renal calculi on 12/09/2021. The patient has some indication for some mild right-sided hydronephrosis and this will be further discussed with urology. #5. C. diff colitis, on oral vancomycin #6. White complex tachycardia use since admission. Patient has known history of ischemic cardiomyopathy with previous history of coronary artery disease and V. tach. History of V. tach ablation and AICD #7. Transaminitis which may relate to underlying cholecystitis, consider acute cholecystitis, general surgery is on the case. CT scan of the abdomen showed hydropic gallbladder with cholelithiasis, currently LFTs are improving #8. Acute kidney injury on top of chronic kidney disease #9. History of CAD with previous stent placement #10. History of nonsustained VT with previous history VT ablation and AICD placement #11. History of sleep apnea syndrome #12. History of hyperlipidemia #13. History of hypertension #14. History of colon cancer status post colectomy and colostomy #15. History of DVT #16. Paroxysmal atrial fibrillation currently in sinus rhythm #17. Peripheral edema and third spacing secondary to hypoproteinemia Plan: Continue with current dose Lasix Dobutamine has been added Continue with Zosyn Patient was placed on CPAP support at 10 cm of water and FiO2 at 60% Today's chest x-ray and labs have been reviewed Chest x-rays consistent with worsening pulmonary edema Overall prognosis is poor This was discussed with the patient At this time patient was to continue with full CODE STATUS We'll continue monitoring electrolytes and renal profile Continue with antibiotics and Lasix Continue TPN I have personally seen and examined the patient, performed the documentation and the assessment and plan as written. Number of minutes spent on the visit: [10] Time with Patient: Less than 30
[2021-12-21] MEDS: ASPIRIN 81 MG PO SCH (12:11)
[2021-12-21] MEDS: SODIUM CHLORIDE 0.9% 1,000 ML IV SCH (12:17)
--- NOTE | 2021-12-21 13:31 | P.PN ---
Subjective Progress Note Date: 12/21/21 CHIEF COMPLAINT: Small bowel ejection HISTORY OF PRESENT ILLNESS: Patient is in the ICU. Patient is postop day #12 status post exploratory laparotomy, lysis of extensive adhesions, repair of parastomal hernia and small bowel resection for small bowel obstruction due to parastomal hernia and adhesions. Patient required be placed on BiPAP. He's also be starting on dobutamine and he continues on IV Lasix and IV albumin. His ostomy is functioning he had 100 mL of liquidy stool. No blood noted. Denies abdominal pain. Afebrile. White count decreasing from 25.7-15.6 hemoglobin 9.2 platelets 231 creatinine 2.42 Patient seen and examined with Dr. velarde PHYSICAL EXAM: VITAL SIGNS: Reviewed. GENERAL: Well-developed in no acute distress. HEENT: No sclera icterus. Extraocular movements grossly intact. Moist buccal mucosa. Head is atraumatic, normocephalic. ABDOMEN: Soft. Nondistended. Serous drainage noted from incision. Does have one Aquacel Silver wick at the tip of the incision. Ostomy functioning with liquidy brown stool NEUROLOGIC: Sleepy but able to answer questions ASSESSMENT: 1. 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 Left hydronephrosis secondary to left ureteral stricture status post cystoscopy with left ureteroscopy balloon dilatation of the left distal ureteral stricture and left ureteral stent insertion by Dr. Cool 3. Sustained ventricle tachycardia 4. Hypokalemia 5. Distended gallbladder with cholelithiasis 6. Possible postoperative ileus 7. Leukocytosis 10. GI bleeding with blood noted in stool in ostomy bag likely secondary to the anticoagulation. Now resolved 11. Severe protein calorie malnutrition 12. History of atrial fibrillation 13. C. diff colitis PLAN: -Continue ICU management -Continue supportive care -Continue clear liquid diet -Continue antibiotics -Continue to monitor hemoglobin -Continue Tylenol as needed for pain -Encourage incentive spirometer use -Continue TPN for nutrition support Physician Physical Therapy Assistant Instructor note has been reviewed by physician. Signing provider agrees with the documented findings, assessment, and plan of care. Objective - Vital Signs Vital signs: Vital Signs Temp 98.5 F 12/21/21 04:00 Pulse 82 12/21/21 12:00 Resp 39 H 12/21/21 12:00 BP 132/116 03/22/22 12:00 Pulse Ox 83 L 12/21/21 12:00 Intake & Output 12/20/21 12/21/21 12/21/21 18:59 06:59 18:59 Intake Total 1508.23 2458.657 595 Output Total 1125 815 500 Balance 383.23 1643.657 95 Weight 96.2 kg 93 kg Intake: IV 665 130 120 Albumin Human 25% 50 ml 200 100 In Empty Bag 1 bag @ 200 mls/hr IVPB DAILY@0900 [facility] Rx#:[id number] Mvi, Adult No.4 with Vit 375 K 10 ml Trace (Conc-1Ml/ Dose) 1 ml Sodium Phosphate 21 mmol Potassium Acetate 40 meq Magnesium Sulfate Syg 4. 06 meq Calcium Gluconate 1 gm In Amino Acids 5 %/ Dextrose 20 % 1,000 ml @ 75 mls/hr IV .BY DURATION [facility] Rx#:[id number] Sodium Chloride 0.9% 1, 90 130 20 000 ml @ 20 mls/hr IV . Q24H [facility] Rx#:[id number] Intake, IV Titration 723.23 2148.657 475 Amount Mvi, Adult No.4 with Vit 525 975 375 K 10 ml Trace (Conc-1Ml/ Dose) 1 ml Sodium Phosphate 9 mmol Sodium Acetate 20 meq Potassium Acetate 40 meq Magnesium Sulfate Syg 4.06 meq Calcium Gluconate 1 gm In Amino Acids 5 %/Dextrose 20 % 1,000 ml @ 75 mls/ hr IV .BY DURATION [facility] Rx #:[id number] Norepinephrine 8 mg In 98.23 29.657 Sodium Chloride 0.9% 250 ml @ 0.05 MCG/KG/MIN 9. 385 mls/hr IV .Q24H [facility] Rx#:[id number] Piperacillin-Tazobactam 3 100 100 100 .375 gm In Sodium Chloride 0.9% 100 ml @ 25 mls/hr IVPB Q8H [facility] Rx#: [id number] Sodium Phosphate 9 mmol 1044 Sodium Acetate 20 meq Potassium Acetate 40 meq Magnesium Sulfate Syg 4. 06 meq Calcium Gluconate 1 gm In Amino Acids 5 %/ Dextrose 20 % 1,000 ml @ 75 mls/hr IV .BY DURATION [facility] Rx#:[id number] Oral 120 180 Output: Urine 1025 715 500 Stool 100 100 Other: Voiding Method Indwelling Catheter Indwelling Catheter Indwelling Catheter - Labs CBC & Chem 7: 12/21/21 06:57 12/21/21 06:57 Labs: Abnormal Lab Results - Last 24 Hours (Table) 12/20/21 12/21/21 12/21/21 Range/Units 17:51 00:00 05:40 WBC (3.8-10.6) k/uL RBC (4.30-5.90) m/uL Hgb (13.0-17.5) gm/dL Hct (39.0-53.0) % MCV (80.0-100.0) fL Neutrophils # (1.3-7.7) k/uL Lymphocytes # (1.0-4.8) k/uL Chloride (98-107) mmol/L Carbon Dioxide (22-30) mmol/L BUN (9-20) mg/dL Creatinine (0.66-1.25) mg/dL Glucose (74-99) mg/dL POC Glucose (mg/dL) 174 H 203 H 166 H (75-99) mg/dL Calcium (8.4-10.2) mg/dL Phosphorus (2.5-4.5) mg/dL Total Bilirubin (0.2-1.3) mg/dL AST (17-59) U/L ALT (4-49) U/L Alkaline Phosphatase (38-126) U/L Total Protein (6.3-8.2) g/dL Albumin (3.5-5.0) g/dL 12/21/21 12/21/21 12/21/21 Range/Units 06:57 06:57 11:51 WBC 15.6 H (3.8-10.6) k/uL RBC 2.92 L (4.30-5.90) m/uL Hgb 9.2 L (13.0-17.5) gm/dL Hct 29.3 L (39.0-53.0) % MCV 100.3 H (80.0-100.0) fL Neutrophils # 14.3 H (1.3-7.7) k/uL Lymphocytes # 0.3 L (1.0-4.8) k/uL Chloride 108 H (98-107) mmol/L Carbon Dioxide 21 L (22-30) mmol/L BUN 77 H (9-20) mg/dL Creatinine 2.42 H (0.66-1.25) mg/dL Glucose 145 H (74-99) mg/dL POC Glucose (mg/dL) 161 H (75-99) mg/dL Calcium 7.4 L (8.4-10.2) mg/dL Phosphorus 4.6 H (2.5-4.5) mg/dL Total Bilirubin 1.4 H (0.2-1.3) mg/dL AST 64 H (17-59) U/L ALT 72 H (4-49) U/L Alkaline Phosphatase 135 H (38-126) U/L Total Protein 4.7 L (6.3-8.2) g/dL Albumin 2.4 L (3.5-5.0) g/dL
[2021-12-21] MEDS: HYDROmorphone 0.5 MG/0.5 ML SYRINGE IVP PRN (13:54)
--- NOTE | 2021-12-21 15:38 | P.PN ---
Subjective Patient was examined at bedside today continues to be very weak and lethargic. Family member present at bedside BiPAP was briefly removed by margarine maker another conversation with his . Saturations are anywhere from the mid 80s to high 80s. Decision to restart BiPAP after my examination. Continues to have some pitting edema in the upper and lower extremity. Blood pressure labile currently off of pressors. Continuing with TPN and antimicrobials. Objective - Vital Signs Vital signs: Vital Signs Temp 98.5 F 12/21/21 04:00 Pulse 82 12/21/21 12:00 Resp 39 H 12/21/21 12:00 BP 132/116 12/21/21 12:00 Pulse Ox 83 L 12/21/21 12:00 Intake & Output 12/20/21 12/21/21 12/21/21 18:59 06:59 18:59 Intake Total 1508.23 2458.657 595 Output Total 1125 815 500 Balance 383.23 1643.657 95 Weight 96.2 kg 93 kg Intake: IV 665 130 120 Albumin Human 25% 50 ml 200 100 In Empty Bag 1 bag @ 200 mls/hr IVPB DAILY@0900 [facility] Rx#:[id number] Mvi, Adult No.4 with Vit 375 K 10 ml Trace (Conc-1Ml/ Dose) 1 ml Sodium Phosphate 21 mmol Potassium Acetate 40 meq Magnesium Sulfate Syg 4. 06 meq Calcium Gluconate 1 gm In Amino Acids 5 %/ Dextrose 20 % 1,000 ml @ 75 mls/hr IV .BY DURATION [facility] Rx#:[id number] Sodium Chloride 0.9% 1, 90 130 20 000 ml @ 20 mls/hr IV . Q24H [facility] Rx#:[id number] Intake, IV Titration 723.23 2148.657 475 Amount Mvi, Adult No.4 with Vit 525 975 375 K 10 ml Trace (Conc-1Ml/ Dose) 1 ml Sodium Phosphate 9 mmol Sodium Acetate 20 meq Potassium Acetate 40 meq Magnesium Sulfate Syg 4.06 meq Calcium Gluconate 1 gm In Amino Acids 5 %/Dextrose 20 % 1,000 ml @ 75 mls/ hr IV .BY DURATION [facility] Rx #:[id number] Norepinephrine 8 mg In 98.23 29.657 Sodium Chloride 0.9% 250 ml @ 0.05 MCG/KG/MIN 9. 385 mls/hr IV .Q24H [facility] Rx#:[id number] Piperacillin-Tazobactam 3 100 100 100 .375 gm In Sodium Chloride 0.9% 100 ml @ 25 mls/hr IVPB Q8H [facility] Rx#: [id number] Sodium Phosphate 9 mmol 1044 Sodium Acetate 20 meq Potassium Acetate 40 meq Magnesium Sulfate Syg 4. 06 meq Calcium Gluconate 1 gm In Amino Acids 5 %/ Dextrose 20 % 1,000 ml @ 75 mls/hr IV .BY DURATION [facility] Rx#:[id number] Oral 120 180 Output: Urine 1025 715 500 Stool 100 100 Other: Voiding Method Indwelling Catheter Indwelling Catheter Indwelling Catheter - Exam Gen. patient is slightly uncomfortable , chronically ill appearing Cardiovascular normal S1/S2 no murmurs or rubs heard Respiratory no wheezing or rhonchi appreciated Abdomen decreased bowel sounds, slightly tender , ostomy with very minimal fluid noted Neuro patient is awake alert oriented 3 Psych very weak and cachectic appearing. Meza catheter in place Pitting edema +2/+3 pitting edema noted in the lower extremities - Labs CBC & Chem 7: 12/21/21 06:57 12/21/21 06:57 Labs: Abnormal Lab Results - Last 24 Hours (Table) 12/20/21 12/21/21 12/21/21 Range/Units 17:51 00:00 05:40 WBC (3.8-10.6) k/uL RBC (4.30-5.90) m/uL Hgb (13.0-17.5) gm/dL Hct (39.0-53.0) % MCV (80.0-100.0) fL Neutrophils # (1.3-7.7) k/uL Lymphocytes # (1.0-4.8) k/uL Chloride (98-107) mmol/L Carbon Dioxide (22-30) mmol/L BUN (9-20) mg/dL Creatinine (0.66-1.25) mg/dL Glucose (74-99) mg/dL POC Glucose (mg/dL) 174 H 203 H 166 H (75-99) mg/dL Calcium (8.4-10.2) mg/dL Phosphorus (2.5-4.5) mg/dL Total Bilirubin (0.2-1.3) mg/dL AST (17-59) U/L ALT (4-49) U/L Alkaline Phosphatase (38-126) U/L Total Protein (6.3-8.2) g/dL Albumin (3.5-5.0) g/dL 12/21/21 12/21/21 12/21/21 Range/Units 06:57 06:57 11:51 WBC 15.6 H (3.8-10.6) k/uL RBC 2.92 L (4.30-5.90) m/uL Hgb 9.2 L (13.0-17.5) gm/dL Hct 29.3 L (39.0-53.0) % MCV 100.3 H (80.0-100.0) fL Neutrophils # 14.3 H (1.3-7.7) k/uL Lymphocytes # 0.3 L (1.0-4.8) k/uL Chloride 108 H (98-107) mmol/L Carbon Dioxide 21 L (22-30) mmol/L BUN 77 H (9-20) mg/dL Creatinine 2.42 H (0.66-1.25) mg/dL Glucose 145 H (74-99) mg/dL POC Glucose (mg/dL) 161 H (75-99) mg/dL Calcium 7.4 L (8.4-10.2) mg/dL Phosphorus 4.6 H (2.5-4.5) mg/dL Total Bilirubin 1.4 H (0.2-1.3) mg/dL AST 64 H (17-59) U/L ALT 72 H (4-49) U/L Alkaline Phosphatase 135 H (38-126) U/L Total Protein 4.7 L (6.3-8.2) g/dL Albumin 2.4 L (3.5-5.0) g/dL Assessment and Plan Assessment: Assessment: #1 sepsis secondary to urinary company urinary tract infection -pseudomonas #2 small bowel obstruction can be secondary to underlying adhesions versus parastomal hernia? #3 coronary disease status post stent 2 #4 hyperlipidemia #5 essential hypertension #6 electrolyte abnormality secondary to above #7 CKD Secondary to Dehydration/Prerenal #8 transaminitis secondary to above #9 C. diff infection Plan: -Admit to medicine for close monitoring -Aspiration/fall precaution/hob30 -Urine cultures reviewed showing Pseudomonas. Urine cultures positive susceptible to Zosyn completed 12/16 however restarted in the ICU. -Stent placed by urology needs outpatient follow-up as well. -Continue with oral vancomycin for treatment of C. diff. -Replace electrolyte when necessary -TPN management as per surgical team. -DVT prophylaxis/GI px per ICU- patient currently not on any DVT px will coordiante with consultants regarding re-starting?
[2021-12-21] MEDS: HYDROmorphone 1 MG/ML 1 ML SYRINGE IVP PRN (15:56)
[2021-12-21 17:23] LABS: Glucose,Whole Blood 202 mg/dL (75-99)
[2021-12-21 20:36] LABS: Glucose,Whole Blood 212 mg/dL (75-99)
[2021-12-21] MEDS: ATORVASTATIN 40 MG TAB PO SCH (20:36)
[2021-12-21] MEDS: TAMSULOSIN 0.4 MG CAP.ER.24H PO SCH (20:36)
[2021-12-21] MEDS: INSULIN DETEMIR (LEVEMIR) 100 UNIT/ML SYR SQ SCH (20:37)
[2021-12-21] MEDS: DEXMEDETOMIDINE/0.9% NACL(PMX) 400 MCG in EMPTY BAG 1 BAG IV SCH (22:13)
[2021-12-21] MEDS: NOREPINEPHRINE 8 MG in SODIUM CHLORIDE 0.9% 250 ML IV SCH (22:32)
[2021-12-21] MEDS ORDERED: SODIUM ACETATE IV SCH ×8 (23:00)
[2021-12-21] MEDS ORDERED: POTASSIUM ACETATE IV SCH ×8 (23:00)
[2021-12-21] MEDS ORDERED: [UNRECOGNIZED DRUG - OTHER] IV SCH ×8 (23:00)
[2021-12-21] MEDS ORDERED: SODIUM PHOSPHATE IV SCH ×8 (23:00)
[2021-12-21 23:55] LABS: Glucose,Whole Blood 173 mg/dL (75-99)
[2021-12-22] MEDS: PIPERACILLIN-TAZOBACTAM 3.375 GM in SODIUM CHLORIDE 0.9% 100 ML IVPB SCH ×3 (03:00→18:40)
[2021-12-22 05:25] LABS: Calcium 7.1 mg/dL (8.4-10.2)
[2021-12-22 05:32] LABS: Potassium 4.5 mmol/L (3.5-5.1)
[2021-12-22 05:33] LABS: Magnesium 2.3 mg/dL (1.6-2.3); Phosphorus 5.2 mg/dL (2.5-4.5)
[2021-12-22] MEDS: INSULIN ASPART (NovoLOG) 100 UNIT/ML VIAL SQ SCH ×5 (05:43→23:55)
[2021-12-22 05:53] LABS: Glucose,Whole Blood 139 mg/dL (75-99)
[2021-12-22] MEDS: HYDROmorphone 1 MG/ML 1 ML SYRINGE IVP PRN (06:14)
[2021-12-22 07:25] LABS: ABG Base Excess -4.1 mmol/L; ABG HCO3 21 mmol/L (21-25); ABG Oxygen Saturation 91.2 % (94-97); ABG PCO2 34 mmHg (35-45); ABG PO2 61 mmHg (83-108); ABG TCO2 22 mmol/L (19-24); Allen Test Performed? Yes
--- NOTE | 2021-12-22 07:38 | P.PN ---
Subjective Progress Note Date: 12/22/21 PROGRESS NOTE The patient is an 80-year-old male with known history of CAD status post stenting, cardiomyopathy him of ventricle tachycardia and ICD implantation who underwent exploratory laparotomy and colostomy. He had episode of recurrent ventricular tachycardia, has been stable after the addition of amiodarone and mexiletine. He continues to be in sinus mechanism. His blood pressure is stable. He continues to have peripheral edema but his urinary output has been stable. He denies any chest discomfort or dizziness. He is confused at times. There is no further evidence of ventricular tachycardia. His colostomy is working. He continues to be on amiodarone 400 mg twice a day, Lipitor 40 mg daily, Lasix 40 mg IV every 8 hours insulin, mexiletine 200 mg every 8 hours, spironolactone 12-1/2 mg daily December 22: The patient is more confused today, continues to be in sinus mechanism with no evidence of ventricular tachycardia or atrial fibrillation. He continues to be on dobutamine. His blood pressure is on the low side. His colostomy is functioning. He continues to have significant peripheral edema. He is receiving IV Lasix. There is no evidence of GI bleeding. In the past his ejection fraction was 40-45%, his most recent echocardiogram was suboptimal and no evaluation of his LV systolic function could be made. He continues to be on amiodarone 400 mg twice a day, mexiletine 200 mg every 8 hours, aspirin once a day in addition to Lasix 40 mg IV every 8 hours. PHYSICAL EXAMINATION: Opening eyes to verbal stimulation but appears to be somnolent Blood pressure ranging between 85 and 110 heart rate in the 70s LUNGS: Clear to auscultation anteriorly with mild decrease breath sounds at the bases HEART: Regular rate and rhythm, S1, S2. No S3. systolic ejection murmur ABDOMEN: Soft, nontender, no organomegaly, colostomy bag in place EXTREMETIES: 2+ edema LAB: BUN 91, creatinine 2.62, potassium 4.5, IMPRESSION: 1. Status post exploratory laparotomy and colostomy 2. Ventricle tachycardia, stable on present regimen 3. History of coronary artery disease and cardiomyopathy. Most recent echocardiogram showed an ejection fraction of 40-45% 4. Worsening renal failure 5. Paroxysmal atrial fibrillation, now in sinus mechanism 6. Anemia 7. Third spacing with peripheral edema PLAN: 1. Repeat the echocardiogram to further evaluate his systolic function 2. Close follow-up of his renal functions 3. Decrease amiodarone in the morning to 200 mg twice a day 4. Norepinephrine as needed for blood pressure control 5. Prognosis is guarded. Objective - Vital Signs Vital signs: Vital Signs Temp 97.9 F 12/22/21 04:00 Pulse 73 12/22/21 07:15 Resp 34 H 12/22/21 07:15 BP 84/59 12/22/21 07:15 Pulse Ox 87 L 12/22/21 07:15 Intake & Output 12/21/21 12/22/21 12/22/21 18:59 06:59 18:59 Intake Total 755 1036.684 85 Output Total 1600 1790 100 Balance -845 -753.316 -15 Weight 95 kg Intake: IV 180 945 85 Albumin Human 25% 50 ml 100 In Empty Bag 1 bag @ 200 mls/hr IVPB DAILY@0900 [facility] Rx#:[id number] Sodium Chloride 0.9% 1, 80 120 10 000 ml @ 20 mls/hr IV . Q24H [facility] Rx#:[id number] Sodium Phosphate 9 mmol 825 75 Sodium Acetate 20 meq Potassium Acetate 40 meq Magnesium Sulfate Syg 4. 06 meq Calcium Gluconate 1 gm In Amino Acids 5 %/ Dextrose 20 % 1,000 ml @ 75 mls/hr IV .BY DURATION [facility] Rx#:[id number] Intake, IV Titration 475 91.684 Amount DOBUTamine DRIP 500 mg In 63.938 Dextrose/Water 1 250ml. bag @ 2.5 MCG/KG/MIN 6. 975 mls/hr IV .Q24H [facility] Rx#:[id number] Dexmedetomidine/0.9% NaCl 27.746 (Pmx) 400 mcg In Empty Bag 1 bag @ 0.2 MCG/KG/HR 4.65 mls/hr IV .[id number] [facility] Rx#:[id number] Mvi, Adult No.4 with Vit 375 K 10 ml Trace (Conc-1Ml/ Dose) 1 ml Sodium Phosphate 9 mmol Sodium Acetate 20 meq Potassium Acetate 40 meq Magnesium Sulfate Syg 4.06 meq Calcium Gluconate 1 gm In Amino Acids 5 %/Dextrose 20 % 1,000 ml @ 75 mls/ hr IV .BY DURATION [facility] Rx #:[id number] Piperacillin-Tazobactam 3 100 .375 gm In Sodium Chloride 0.9% 100 ml @ 25 mls/hr IVPB Q8H [facility] Rx#: [id number] Oral 100 Output: Urine 1600 1190 100 Stool 600 Other: Voiding Method Indwelling Catheter Indwelling Catheter # Bowel Movements 2 - Labs CBC & Chem 7: 12/21/21 06:57 12/22/21 04:32 Labs: Abnormal Lab Results - Last 24 Hours (Table) 12/21/21 12/21/21 12/21/21 Range/Units 06:57 11:51 17:22 ABG pCO2 (35-45) mmHg ABG pO2 (83-108) mmHg ABG O2 Saturation (94-97) % Chloride 108 H (98-107) mmol/L Carbon Dioxide 21 L (22-30) mmol/L BUN 77 H (9-20) mg/dL Creatinine 2.42 H (0.66-1.25) mg/dL Glucose 145 H (74-99) mg/dL POC Glucose (mg/dL) 161 H 202 H (75-99) mg/dL Calcium 7.4 L (8.4-10.2) mg/dL Phosphorus 4.6 H (2.5-4.5) mg/dL Total Bilirubin 1.4 H (0.2-1.3) mg/dL AST 64 H (17-59) U/L ALT 72 H (4-49) U/L Alkaline Phosphatase 135 H (38-126) U/L Total Protein 4.7 L (6.3-8.2) g/dL Albumin 2.4 L (3.5-5.0) g/dL 12/21/21 12/21/21 12/22/21 Range/Units 20:24 23:52 04:32 ABG pCO2 (35-45) mmHg ABG pO2 (83-108) mmHg ABG O2 Saturation (94-97) % Chloride 109 H (98-107) mmol/L Carbon Dioxide 17 L (22-30) mmol/L BUN 91 H (9-20) mg/dL Creatinine 2.62 H (0.66-1.25) mg/dL Glucose 103 H (74-99) mg/dL POC Glucose (mg/dL) 212 H 173 H (75-99) mg/dL Calcium 7.1 L (8.4-10.2) mg/dL Phosphorus 5.2 H (2.5-4.5) mg/dL Total Bilirubin (0.2-1.3) mg/dL AST (17-59) U/L ALT (4-49) U/L Alkaline Phosphatase (38-126) U/L Total Protein (6.3-8.2) g/dL Albumin (3.5-5.0) g/dL 12/22/21 12/22/21 Range/Units 05:41 07:23 ABG pCO2 34 L (35-45) mmHg ABG pO2 61 L (83-108) mmHg ABG O2 Saturation 91.2 L (94-97) % Chloride (98-107) mmol/L Carbon Dioxide (22-30) mmol/L BUN (9-20) mg/dL Creatinine (0.66-1.25) mg/dL Glucose (74-99) mg/dL POC Glucose (mg/dL) 139 H (75-99) mg/dL Calcium (8.4-10.2) mg/dL Phosphorus (2.5-4.5) mg/dL Total Bilirubin (0.2-1.3) mg/dL AST (17-59) U/L ALT (4-49) U/L Alkaline Phosphatase (38-126) U/L Total Protein (6.3-8.2) g/dL Albumin (3.5-5.0) g/dL
[2021-12-22] MEDS: DEXMEDETOMIDINE/0.9% NACL(PMX) 400 MCG in EMPTY BAG 1 BAG IV SCH (08:26)
--- NOTE | 2021-12-22 08:31 | XR ---
EXAMINATION TYPE: XR chest 1V portable DATE OF EXAM: 12/22/2021 COMPARISON: 12/21/2021 INDICATION: Short of breath TECHNIQUE: Single frontal view of the chest is obtained. FINDINGS: The heart size is normal. The pulmonary vasculature is prominent. There is diffuse increased lung markings bilaterally slightly greater on the left. Correlate for pulm onary edema. Findings are similar to comparison. IMPRESSION: 1. Diffuse increased lung markings and prominent pulmonary vascular markings suggestive for stable pu lmonary edema. Continued follow-up is recommended.
[2021-12-22] MEDS ORDERED: SUCCINYLCHOLINE CHLORIDE VIAL 200 MG/10 ML VIAL IV ONE ×2 (08:40→08:44)
[2021-12-22] MEDS ORDERED: MORPHINE SULFATE 4 MG/ML SYRINGE IVP STA (08:40)
[2021-12-22] MEDS ORDERED: PROPOFOL 10 MG/ML 20 ML VIAL IV ONE (08:40)
[2021-12-22 08:42] LABS: Basophils % (A) 0 %; Eosinophils # (A) 0.3 k/uL (0-0.7); Eosinophils % (A) 3 %; HCT 26.5 % (39.0-53.0); Hypochromasia Marked; Lymphocytes # (A) 0.3 k/uL (1.0-4.8); Lymphocytes % (A) 3 %; MCH 31.8 pg (25.0-35.0); MCHC 30.2 g/dL (31.0-37.0); Macrocytosis Moderate; Monocytes # (A) 0.4 k/uL (0-1.0); Monocytes % (A) 4 %; Neutrophils # (A) 9.1 k/uL (1.3-7.7); Neutrophils % (A) 90 %; Platelet Count 181 k/uL (150-450); RBC 2.51 m/uL (4.30-5.90); RDW 14.1 % (11.5-15.5); WBC 10.1 k/uL (3.8-10.6)
[2021-12-22] MEDS ORDERED: propofoL 100 ML IV ONE (08:43)
[2021-12-22] MEDS ORDERED: MORPHINE SULFATE 4 MG/ML SYRINGE ONE (08:43)
[2021-12-22] MEDS: DOBUTamine DRIP 500 MG in DEXTROSE/WATER 1 250ML.BAG IV SCH (09:09)
[2021-12-22 09:17] LABS: MCV 105.4 fL (80.0-100.0)
[2021-12-22 09:29] LABS: ABG HCO3 21 mmol/L (21-25); ABG Oxygen Saturation 98.9 % (94-97); ABG PCO2 42 mmHg (35-45); ABG PH 7.31 (7.35-7.45); ABG PO2 194 mmHg (83-108); ABG TCO2 23 mmol/L (19-24)
[2021-12-22 09:30] LABS: Allen Test Performed? no
--- NOTE | 2021-12-22 09:51 | XR ---
EXAMINATION TYPE: XR chest 1V DATE OF EXAM: 12/22/2021 COMPARISON: 12/22/2021 INDICATION: Tube placement TECHNIQUE: Single frontal view of the chest is obtained. FINDINGS: The heart size is normal. The pulmonary vasculature is normal. There are diffuse increased lung markings to the left lung and lateral right chest. These findings ap pear similar to earlier exam. Endotracheal tube is in place with tip 4.3 cm above the yosi. Pacemaker overlies left chest. IMPRESSION: 1. Placement of an endotracheal tube with tip above the yosi. 2. Stable diffuse infiltrates through the bilateral lung harman.
[2021-12-22] MEDS: VANCOMYCIN ORAL SOLUTION 250 MG/5 ML BOTTLE PO SCH ×4 (09:55→20:50)
[2021-12-22] MEDS: AMIODARONE 200 MG TAB PO SCH ×2 (10:45→20:48)
[2021-12-22] MEDS: SPIRONOLACTONE 25 MG TAB PO SCH (10:46)
[2021-12-22] MEDS: ASPIRIN 81 MG PO SCH (10:46)
[2021-12-22] MEDS: MEXILETINE 200 MG CAP PO SCH ×4 (10:47→23:57)
[2021-12-22] MEDS: FAMOTIDINE 20 MG/2 ML VIAL IV SCH (10:47)
[2021-12-22] MEDS: FINASTERIDE 5 MG TAB PO SCH (10:47)
--- NOTE | 2021-12-22 11:13 | P.PN ---
Subjective Patient was examined at bedside today. ICU team evaluating and intubating the patient due to worsening respiratory status. Case discussed with head track coach and RN present at bedside. No family member present at bedside today. Objective - Vital Signs Vital signs: Vital Signs Temp 97.0 F L 12/22/21 08:00 Pulse 60 12/22/21 09:30 Resp 17 12/22/21 09:30 BP 104/62 12/22/21 09:30 Pulse Ox 99 12/22/21 09:30 Intake & Output 12/21/21 12/22/21 12/22/21 18:59 06:59 18:59 Intake Total 755 1073.264 538.385 Output Total 1600 2490 304 Balance -845 -1416.736 234.385 Weight 95 kg Intake: IV 180 945 340 Albumin Human 25% 50 ml 100 In Empty Bag 1 bag @ 200 mls/hr IVPB DAILY@0900 [facility] Rx#:[id number] Sodium Chloride 0.9% 1, 80 120 40 000 ml @ 20 mls/hr IV . Q24H [facility] Rx#:[id number] Sodium Phosphate 9 mmol 825 300 Sodium Acetate 20 meq Potassium Acetate 40 meq Magnesium Sulfate Syg 4. 06 meq Calcium Gluconate 1 gm In Amino Acids 5 %/ Dextrose 20 % 1,000 ml @ 75 mls/hr IV .BY DURATION [facility] Rx#:[id number] Intake, IV Titration 475 128.264 198.385 Amount DOBUTamine DRIP 500 mg In 63.938 186.062 Dextrose/Water 1 250ml. bag @ 2.5 MCG/KG/MIN 6. 975 mls/hr IV .Q24H [facility] Rx#:[id number] Dexmedetomidine/0.9% NaCl 64.326 12.323 (Pmx) 400 mcg In Empty Bag 1 bag @ 0.2 MCG/KG/HR 4.65 mls/hr IV .[id number] [facility] Rx#:[id number] Mvi, Adult No.4 with Vit 375 K 10 ml Trace (Conc-1Ml/ Dose) 1 ml Sodium Phosphate 9 mmol Sodium Acetate 20 meq Potassium Acetate 40 meq Magnesium Sulfate Syg 4.06 meq Calcium Gluconate 1 gm In Amino Acids 5 %/Dextrose 20 % 1,000 ml @ 75 mls/ hr IV .BY DURATION [facility] Rx #:[id number] Piperacillin-Tazobactam 3 100 .375 gm In Sodium Chloride 0.9% 100 ml @ 25 mls/hr IVPB Q8H [facility] Rx#: [id number] Oral 100 Output: Urine 1600 1190 304 Stool 1300 Other: Voiding Method Indwelling Catheter Indwelling Catheter # Bowel Movements 1 ABP, PAP, CO, CI - Last Documented Arterial Blood Pressure 147/46 - Exam Gen. Chronically ill-appearing Cardiovascular normal S1/S2 no murmurs or rubs heard Respiratory some rhonchi appreciated, patient just got intubated Abdomen decreased bowel sounds, slightly tender , ostomy with very minimal fluid noted Neuro was not assessed as patient has been intubated. Psych cannot be assessed today. Meza catheter in place Pitting edema +2/+3 pitting edema noted in the lower extremities - Labs CBC & Chem 7: 12/22/21 04:32 12/22/21 04:32 Labs: Abnormal Lab Results - Last 24 Hours (Table) 12/21/21 12/21/21 12/21/21 Range/Units 11:51 17:22 20:24 RBC (4.30-5.90) m/uL Hgb (13.0-17.5) gm/dL Hct (39.0-53.0) % MCV (80.0-100.0) fL MCHC (31.0-37.0) g/dL ABG pH (7.35-7.45) ABG pCO2 (35-45) mmHg ABG pO2 (83-108) mmHg ABG O2 Saturation (94-97) % Chloride (98-107) mmol/L Carbon Dioxide (22-30) mmol/L BUN (9-20) mg/dL Creatinine (0.66-1.25) mg/dL Glucose (74-99) mg/dL POC Glucose (mg/dL) 161 H 202 H 212 H (75-99) mg/dL Calcium (8.4-10.2) mg/dL Phosphorus (2.5-4.5) mg/dL Prealbumin (18.0-42.0) mg/dL 12/21/21 12/22/21 12/22/21 Range/Units 23:52 04:32 04:32 RBC 2.51 L (4.30-5.90) m/uL Hgb 8.0 L (13.0-17.5) gm/dL Hct 26.5 L (39.0-53.0) % MCV 105.4 H D (80.0-100.0) fL MCHC 30.2 L (31.0-37.0) g/dL ABG pH (7.35-7.45) ABG pCO2 (35-45) mmHg ABG pO2 (83-108) mmHg ABG O2 Saturation (94-97) % Chloride 109 H (98-107) mmol/L Carbon Dioxide 17 L (22-30) mmol/L BUN 91 H (9-20) mg/dL Creatinine 2.62 H (0.66-1.25) mg/dL Glucose 103 H (74-99) mg/dL POC Glucose (mg/dL) 173 H (75-99) mg/dL Calcium 7.1 L (8.4-10.2) mg/dL Phosphorus 5.2 H (2.5-4.5) mg/dL Prealbumin (18.0-42.0) mg/dL 12/22/21 12/22/21 12/22/21 Range/Units 04:32 05:41 07:23 RBC (4.30-5.90) m/uL Hgb (13.0-17.5) gm/dL Hct (39.0-53.0) % MCV (80.0-100.0) fL MCHC (31.0-37.0) g/dL ABG pH (7.35-7.45) ABG pCO2 34 L (35-45) mmHg ABG pO2 61 L (83-108) mmHg ABG O2 Saturation 91.2 L (94-97) % Chloride (98-107) mmol/L Carbon Dioxide (22-30) mmol/L BUN (9-20) mg/dL Creatinine (0.66-1.25) mg/dL Glucose (74-99) mg/dL POC Glucose (mg/dL) 139 H (75-99) mg/dL Calcium (8.4-10.2) mg/dL Phosphorus (2.5-4.5) mg/dL Prealbumin 5.7 L (18.0-42.0) mg/dL 12/22/21 Range/Units 09:27 RBC (4.30-5.90) m/uL Hgb (13.0-17.5) gm/dL Hct (39.0-53.0) % MCV (80.0-100.0) fL MCHC (31.0-37.0) g/dL ABG pH 7.31 L (7.35-7.45) ABG pCO2 (35-45) mmHg ABG pO2 194 H (83-108) mmHg ABG O2 Saturation 98.9 H (94-97) % Chloride (98-107) mmol/L Carbon Dioxide (22-30) mmol/L BUN (9-20) mg/dL Creatinine (0.66-1.25) mg/dL Glucose (74-99) mg/dL POC Glucose (mg/dL) (75-99) mg/dL Calcium (8.4-10.2) mg/dL Phosphorus (2.5-4.5) mg/dL Prealbumin (18.0-42.0) mg/dL Assessment and Plan Assessment: Assessment: #1 septic shock secondary to complicated urinary tract infection -pseudomonas #2 small bowel obstruction can be secondary to underlying adhesions versus parastomal hernia? #3 coronary disease status post stent 2 #4 acute hypoxic respiratory failure secondary to above #5 essential hypertension #6 electrolyte abnormality secondary to above #7 CKD Secondary to Dehydration/Prerenal #8 transaminitis secondary to above #9 C. diff infection Plan: -Admit to medicine for close monitoring -Aspiration/fall precaution/hob30 -Mechanical ventilation as per ICU team. -Urine cultures reviewed showing Pseudomonas. Urine cultures positive susceptible to Zosyn completed 12/16 however restarted in the ICU. -IV antibiotics have been resumed again based on chest x-ray. Continue with IV Zosyn as per pulmonary team. -Stent placed by urology needs outpatient follow-up as well. -Continue with oral vancomycin for treatment of C. diff. dosing discussed with pharmacy today. -Replace electrolyte when necessary -TPN management as per surgical team. -DVT prophylaxis/GI px per ICU- patient currently not on any DVT px will coordiante with consultants regarding re-starting?
[2021-12-22 11:29] LABS: Glucose,Whole Blood 203 mg/dL (75-99)
--- NOTE | 2021-12-22 11:42 | P.PN ---
Subjective Progress Note Date: 12/22/21 Principal diagnosis: Status post exploratory laparotomy, lysis of adhesions, repair of peristomal hernia, small bowel resection on 12/09/2021. On 12/20/2021 patient seen in follow-up in intensive care unit, he is awake and alert, appears to be tachypneic, short of breath at rest, and with any conversation. He is on 4 L of oxygen with a pulse ox of 91%, and subsequently his flow was increased to 5 L in view of worsening dyspnea, patient is postoperative day #11, status post exploratory laparotomy, lysis of adhesions, repair of parastomal hernia, small bowel resection on 12/09/2021. His NG tube has been discontinued however patient is having somewhat of a hard time swallo wing, he is coughing at times, bringing up some yellowish colored phlegm, his Zosyn was discontinued, his colostomy is producing liquid brown stool. Patient was afebrile overnight, but generally he appears to be quite significantly fluid overloaded, he remains on Lasix 40 mg twice daily. He was in positive 1500 mL net fluid balance over the last 24 hours. His chest x-ray today showing hypoventilatory changes and patchy airspace disease at the periphery of the right base and at the retrocardiac region at the left base. The possibility of infectious etiology is being considered. No fever or chills overnight. His abdominal incision is draining moderate amount of serous output, midportion of the incision is packed with silver ion packing. Generally patient has significant anasarca, third spacing and received 4 doses of 25% albumin. Today's labs have been reviewed, with blood cell count is elevated but improved and is down to 25.7, hemoglobin is 10.3, sodium is 135, potassium is 4.5, chloride is 107, CO2 is 19, B1 is 65, creatinine is 1.93. LFTs are improved. On 12/21/2021 patient seen in follow-up in the intensive care unit. Still quite dyspneic, tachypneic, he was placed on CPAP support today with a pressure of 10 cm of water, and FiO2 currently is at 60%. His pulse ox is 96%, tolerating CPAP support well, still tachypneic, he is achieving tidal volumes of 799, his res piratory rate is 25-33, minute ventilation is 28 L/m. Remains on Lasix of 40 mg every 8 hours. She was started on Dobutrex at 2.5 mics per kilo per minute. Patient is again in +2 L net fluid balance over the last 24 hours. He has generalized edema in his upper and lower extremities, torso. Urine output is a new order off 85-100 ML per hour. Patient continues on TPN at 75 ML per hour. Today's chest x-ray showing cardiomegaly with left greater than right increasing opacities suggesting worsening pulmonary edema and/or infiltrate. Patient remains on Zosyn, his urine culture was positive for pseudomonas. Afebrile overnight. His blood pressures are marginal, was systolic in the 70s and 80s and occasionally in the 90s, with diastolic in the 50s and the mean of 55-65. Abdomen is nontender, his colostomy is producing some liquid stool, he remains on oral vancomycin for C. diff colitis. A total of 200 mL in liquid output from his colostomy in the last 24 hours. Today's labs have been reviewed, there is improvement in his white blood cell count which is down to 15.6, hemoglobin is 8.2, platelet count is 231, sodium is 137, potassium is 4.4, chloride is 108, CO2 is 21, BUN is 77, creatinine is 2.4 200 today's labs. Reevaluated today on 12/22/2021, patient has been gradually getting worse over the last 24 hours, last night the patient was developing more agitation, and he was on BiPAP at one point, later transitioned to a nonrebreather mask, O2 saturations remained marginal. Patient was placed on Precedex for his agitation, and when I evaluated the patient this morning, patient seemed to be in worsening respiratory distress. ABG was marginal at best. On a nonrebreath er mask, his pO2 was only 61 pCO2 34 pH of 7.40. Patient was noted to be tachypneic tachycardic, and extremely agitated. Chest x-ray showed evidence of worsening increased lung markings and pulmonary vasculature markings suggestive of pulmonary edema, underlying pneumonia is not entirely ruled out. Patient has been diuresing well and his renal functioning has been getting a bit worse. He has been receiving Lasix 40 mg IV push every 8 hours and is also on Dobutrex at 5 mcg/kg/m. Blood pressure has been marginal and he required placement on norepinephrine this morning. Yesterday I made the family aware including his and his son about his condition, and I explained to them that he may end up requiring intubation and mechanical ventilation. Indeed this morning the patient clearly needs to be intubated and mechanically ventilated, and my clinical judgment was to proceed with intubating the patient and placing the patient on mechanical ventilation in the meantime continue hemodynamic support, continue antibiotics, continue inotropic support, echocardiogram which was ordered by cardiology is pending this morning. Post intubation his ABG showed a pO2 of 190 pCO2 42 pH of 7.31, hence the patient was placed on FiO2 of 50%, tidal volume is 450 rate of 22 and PEEP of 5. CBC today showed WBC of 10.1 hemoglobin is 8 and platelets 181,000. Medication [place] patient remains on Tyl enol, amiodarone orally twice a day, Lipitor, Peridex, Pepcid, dobutamine which I cut down to 2.5 mcg/kg/m, Pepcid, TPN, Proscar, Lasix 40 mg cut down from 3 times a day to once daily patient is now on propofol drip and he is also on Dilaudid when necessary remains on Zosyn and he is requiring norepinephrine for marginal low blood pressure. Objective - Vital Signs Vital signs: Vital Signs Temp 97.0 F L 12/22/21 08:00 Pulse 60 12/22/21 09:30 Resp 17 12/22/21 09:30 BP 104/62 12/22/21 09:30 Pulse Ox 99 12/22/21 09:30 Intake & Output 12/21/21 12/22/21 12/22/21 18:59 06:59 18:59 Intake Total 755 1073.264 538.385 Output Total 1600 2490 304 Balance -084 -1416.736 234.385 Weight 95 kg Intake: IV 180 945 340 Albumin Human 25% 50 ml 100 In Empty Bag 1 bag @ 200 mls/hr IVPB DAILY@0900 [facility] Rx#:[id number] Sodium Chloride 0.9% 1, 80 120 40 000 ml @ 20 mls/hr IV . Q24H [facility] Rx#:[id number] Sodium Phosphate 9 mmol 825 300 Sodium Acetate 20 meq Potassium Acetate 40 meq Magnesium Sulfate Syg 4. 06 meq Calcium Gluconate 1 gm In Amino Acids 5 %/ Dextrose 20 % 1,000 ml @ 75 mls/hr IV .BY DURATION [facility] Rx#:[id number] Intake, IV Titration 475 128.264 198.385 Amount DOBUTamine DRIP 500 mg In 63.938 186.062 Dextrose/Water 1 250ml. bag @ 2.5 MCG/KG/MIN 6. 975 mls/hr IV .Q24H [facility] Rx#:[id number] Dexmedetomidine/0.9% NaCl 64.326 12.323 (Pmx) 400 mcg In Empty Bag 1 bag @ 0.2 MCG/KG/HR 4.65 mls/hr IV .[id number] [facility] Rx#:[id number] Mvi, Adult No.4 with Vit 375 K 10 ml Trace (Conc-1Ml/ Dose) 1 ml Sodium Phosphate 9 mmol Sodium Acetate 20 meq Potassium Acetate 40 meq Magnesium Sulfate Syg 4.06 meq Calcium Gluconate 1 gm In Amino Acids 5 %/Dextrose 20 % 1,000 ml @ 75 mls/ hr IV .BY DURATION [facility] Rx #:[id number] Piperacillin-Tazobactam 3 100 .375 gm In Sodium Chloride 0.9% 100 ml @ 25 mls/hr IVPB Q8H [facility] Rx#: [id number] Oral 100 Output: Urine 1600 1190 304 Stool 1300 Other: Voiding Method Indwelling Catheter Indwelling Catheter # Bowel Movements 1 ABP, PAP, CO, CI - Last Documented Arterial Blood Pressure 147/46 - Exam GENERAL EXAM: Revealed 80-year-old white male extremely restless agitated, moaning and groaning, in moderate respiratory distress. HEAD: Normocephalic/atraumatic. EYES: Normal reaction of pupils, equal size. Conjunctiva pink, sclera white. NOSE: Clear with pink turbinates. THROAT: Evidence of thick dry secretions noted in the oropharynx. NECK: Supple, no neck masses no JVD. CHEST: Symmetrical chest expansion noted deformity. LUNGS: Bibasilar crackles and rhonchi noted bilaterally. CVS: Distant S1 and S2, no S3 gallop, 2/6 systolic murmur thought the precordium. ABDOMEN: Soft, nontender. No hepatosplenomegaly, normal bowel sounds, no guarding or rigidity. Midabdominal incision is draining moderate to large amount of serous output, shant are in place, a few shant were removed in the middle, and there is packing with silver ion rope. Left abdominal colostomy in place with small amount of liquid greenish stool EXTREMITIES: No clubbing, no edema, no cyanosis. MUSCULOSKELETAL: No deformities. No limitation in range of motion SKIN: No rashes CENTRAL NERVOUS SYSTEM: Patient is restless, agitated, unable to follow simple instructions. PSYCHIATRIC: Could not assess. Patient is extremely agitated. - Labs CBC & Chem 7: 12/22/21 04:32 12/22/21 04:32 Labs: Abnormal Lab Results - Last 24 Hours (Table) 12/21/21 12/21/21 12/21/21 Range/Units 11:51 17:22 20:24 RBC (4.30-5.90) m/uL Hgb (13.0-17.5) gm/dL Hct (39.0-53.0) % MCV (80.0-100.0) fL MCHC (31.0-37.0) g/dL ABG pH (7.35-7.45) ABG pCO2 (35-45) mmHg ABG pO2 (83-108) mmHg ABG O2 Saturation (94-97) % Chloride (98-107) mmol/L Carbon Dioxide (22-30) mmol/L BUN (9-20) mg/dL Creatinine (0.66-1.25) mg/dL Glucose (74-99) mg/dL POC Glucose (mg/dL) 161 H 202 H 212 H (75-99) mg/dL Calcium (8.4-10.2) mg/dL Phosphorus (2.5-4.5) mg/dL Prealbumin (18.0-42.0) mg/dL 12/21/21 12/22/21 12/22/21 Range/Units 23:52 04:32 04:32 RBC 2.51 L (4.30-5.90) m/uL Hgb 8.0 L (13.0-17.5) gm/dL Hct 26.5 L (39.0-53.0) % MCV 105.4 H D (80.0-100.0) fL MCHC 30.2 L (31.0-37.0) g/dL ABG pH (7.35-7.45) ABG pCO2 (35-45) mmHg ABG pO2 (83-108) mmHg ABG O2 Saturation (94-97) % Chloride 109 H (98-107) mmol/L Carbon Dioxide 17 L (22-30) mmol/L BUN 91 H (9-20) mg/dL Creatinine 2.62 H (0.66-1.25) mg/dL Glucose 103 H (74-99) mg/dL POC Glucose (mg/dL) 173 H (75-99) mg/dL Calcium 7.1 L (8.4-10.2) mg/dL Phosphorus 5.2 H (2.5-4.5) mg/dL Prealbumin (18.0-42.0) mg/dL 12/22/21 12/22/21 12/22/21 Range/Units 04:32 05:41 07:23 RBC (4.30-5.90) m/uL Hgb (13.0-17.5) gm/dL Hct (39.0-53.0) % MCV (80.0-100.0) fL MCHC (31.0-37.0) g/dL ABG pH (7.35-7.45) ABG pCO2 34 L (35-45) mmHg ABG pO2 61 L (83-108) mmHg ABG O2 Saturation 91.2 L (94-97) % Chloride (98-107) mmol/L Carbon Dioxide (22-30) mmol/L BUN (9-20) mg/dL Creatinine (0.66-1.25) mg/dL Glucose (74-99) mg/dL POC Glucose (mg/dL) 139 H (75-99) mg/dL Calcium (8.4-10.2) mg/dL Phosphorus (2.5-4.5) mg/dL Prealbumin 5.7 L (18.0-42.0) mg/dL 12/22/21 Range/Units 09:27 RBC (4.30-5.90) m/uL Hgb (13.0-17.5) gm/dL Hct (39.0-53.0) % MCV (80.0-100.0) fL MCHC (31.0-37.0) g/dL ABG pH 7.31 L (7.35-7.45) ABG pCO2 (35-45) mmHg ABG pO2 194 H (83-108) mmHg ABG O2 Saturation 98.9 H (94-97) % Chloride (98-107) mmol/L Carbon Dioxide (22-30) mmol/L BUN (9-20) mg/dL Creatinine (0.66-1.25) mg/dL Glucose (74-99) mg/dL POC Glucose (mg/dL) (75-99) mg/dL Calcium (8.4-10.2) mg/dL Phosphorus (2.5-4.5) mg/dL Prealbumin (18.0-42.0) mg/dL Assessment and Plan Assessment: Impression: Acute hypoxic respiratory failure, multifactorial requiring intubation and mechanical ventilation on 12/22/2021. Mostly related to acute on chronic systolic congestive heart failure and aspiration pneumonia is strongly suspected. Status post exploratory laparotomy, lysis of adhesions, repair of peristomal hernia, bowel resection on 12/09/2021. Postoperative day #12 Acute urinary tract infection secondary to pseudomonas aeruginosa and history of right sided hydronephrosis. C. difficile colitis, on oral vancomycin. Ischemic cardiomyopathy and LV dysfunction history of AICD placement and ablation for ventricular tachycardia. Cholelithiasis. Acute on chronic kidney injury, secondary to sepsis and septic shock. History of coronary artery disease and previous stent placement History of nonsustained ventricular tachycardia and review his ablation as well as AICD placement History of obstructive sleep apnea syndrome Benign essential hypertension History of colon cancer with previous colectomy and colostomy History of deep vein thrombosis Paroxysmal atrial fibrillation Hypoalbuminemia/hypoproteinemia. Recommendation: Continue ventilatory support, vent settings were adjusted according to the ABG post intubation. Continue dobutamine. Continue norepinephrine and titrate accordingly Continue antibiotics/Zosyn Continue TPN. Nutritional support. Continue GI and DVT prophylaxis. Continue to monitor renal status Continue diuretics however the dose was cut down significantly. Family was updated on his condition yesterday and made aware that his condition may require intubation mechanical ventilation and sure enough the patient's clinical status deteriorated on 12/22 requiring intubation. Overall prognosis remains extremely poor and guarded. Patient is obviously critically ill, and critical care time is over 30 minutes, not including the time spent on procedures. We will continue to follow. Time with Patient: Greater than 30
[2021-12-22 12:44] LABS: Toxic Granulation Present
--- NOTE | 2021-12-22 13:00 | ECHOF ---
Referral Reason:chf MEASUREMENTS -------- HEIGHT: 167.6 cm WEIGHT: 94.8 kg BP: 104/82 RVIDd: 4.3 cm (< 3.3) IVSd: 1.2 cm (0.6 - 1.1) LVIDd: 4.7 cm (3.9 - 5.3) LVPWd: 1.2 cm (0.6 - 1.1) IVSs: 1.9 cm LVIDs: 2.5 cm LVPWs: 2.0 cm LA Diam: 3.4 cm (2.7 - 3.8) Ao Diam: 3.7 cm (2.0 - 3.7) AV Cusp: 1.8 cm (1.5 - 2.6) MV EXCURSION: 16.009 mm (> 18.000) MV EF SLOPE: 61 mm/s (70 - 150) EPSS: 1.1 cm MV E Bobby: 0.94 m/s MV DecT: 309 ms MV A Bobby: 0.89 m/s MV E/A Ratio: 1.06 AV maxP.77 mmHg AV meanP.45 mmHg RAP: 5.00 mmHg RVSP: 40.42 mmHg FINDINGS -------- Sinus rhythm. This was a technically adequate study. The left ventricular size is normal. There is borderline concentric left ventricular hypertrophy. Overall left ventricular systolic function is mildly impaired with, an EF between 45 - 50 %. The right ventricle is severely enlarged. The left atrium is normal in size. The right atrium is normal in size. 3 ml of Lumason was utilized for enhancement of images. There is mild aortic valve sclerosis. There is mild aortic stenosis present. Peak/mean gradient a cross the Aortic Valve is 22.77mmHg / 12.45mmHg. The mitral valve is normal. Mild tricuspid regurgitation present. There is mild pulmonary hypertension. The right ventricular systolic pressure, as measured by Doppler, is 40.42mmHg. The pulmonic valve is normal. The aortic root size is normal. There is no pericardial effusion. CONCLUSIONS -------- 1. The left ventricular size is normal. 2. There is borderline concentric left ventricular hypertrophy. 3. Overall left ventricular systolic function is mildly impaired with, an EF between 45 - 50 %. 4. The right ventricle is severely enlarged. 5. 3 ml of Lumason was utilized for enhancement of images. 6. There is mild aortic valve sclerosis. 7. There is mild aortic stenosis present. 8. Peak/mean gradient across the Aortic Valve is 22.77mmHg / 12.45mmHg. 9. Mild tricuspid regurgitation present. 10. There is mild pulmonary hypertension. 11. The right ventricular systolic pressure, as measured by Doppler, is 40.42mmHg. 12. There is no pericardial effusion. SUPPORT ANALYST: Dixie Rader RDCS
[2021-12-22] MEDS: CHLORHEXIDINE GLUCONATE 15 ML CUP MUCOUS MEM SCH ×2 (13:43→20:49)
[2021-12-22] MEDS: FAT EMULSION 20% 250 ML IV SCH (13:44)
[2021-12-22] MEDS ORDERED: SODIUM CHLORIDE 0.9% 500 ML 500 ML IV ONE ×2 (13:54→22:36)
--- NOTE | 2021-12-22 13:55 | OP ---
OPERATIVE REPORT OPERATIVE REPORT: Intubation and placement on mechanical ventilation. SURGEON: Dr. Beltran. BOARD RUNNER: Dr. Stan Lyons. ANESTHESIA USED: Propofol 100 mg IV push, morphine sulfate 4 mg IV push, and succinylcholine 75 mg IV push. PROCEDURE DESCRIPTION: The patient was placed in a supine position. He was Ambu-bagged, and O2 saturation was noted to be in the low 90s. Then he was given all the medications noted above. After adequate sedation and paralysis, a GlideScope was used. Vocal cords were visualized, and there was a significant amount of dry thick secretions around the vocal cords and in the oropharynx. These were suctioned. Then a size 8 endotracheal tube was placed with direct visualization of the vocal cords. As the tube was advanced, the cuff was inflated. There was a change in color, and endotracheal tube was connected to mechanical ventilation. There were good breath sounds bilaterally and no evidence of any complications. Chest x-ray showed adequate placement of the endotracheal tube a few centimeters above the yosi. MMODL / IJN: [id number] /
[2021-12-22] MEDS ORDERED: POTASSIUM ACETATE IV SCH ×7 (14:00)
[2021-12-22] MEDS ORDERED: [UNRECOGNIZED DRUG - OTHER] IV SCH ×7 (14:00)
[2021-12-22] MEDS ORDERED: SODIUM ACETATE IV SCH ×7 (14:00)
[2021-12-22] MEDS ORDERED: MAGNESIUM SULFATE IV SCH ×7 (14:00)
--- NOTE | 2021-12-22 14:06 | OP ---
OPERATIVE REPORT OPERATIVE REPORT: Placement of a left radial arterial line. PREOPERATIVE DIAGNOSIS: Acute hypoxic respiratory failure. POSTOPERATIVE DIAGNOSIS: Acute hypoxic respiratory failure. ANESTHESIA USED: None deployed. PROCEDURE DESCRIPTION: The left wrist was prepared in a sterile fashion. Drapes were applied. Left radial artery was palpated, cannulated, and a guidewire was placed. A Cook's catheter was inserted over the guidewire, and the guidewire was removed. Good blood flow. Good waveform. Line was secured using 3.0 silk sutures. No complications. MMODL / IJN: [id number] /
--- NOTE | 2021-12-22 14:30 | P.PN ---
Subjective Progress Note Date: 12/22/21 CHIEF COMPLAINT: Small bowel ejection HISTORY OF PRESENT ILLNESS: Patient is in the ICU. Patient required to be intubated. Apparently he was becoming more agitated and did require to be on BiPAP and a nonrebreather mask. Patient had worsening respiratory distress. And was taken And tachycardic. Chest x-ray had shown pulmonary edema and underlying pneumonia not excluded. Patient has been diuresing well. He is on IV Lasix and dobutamine. Patient did require to be restarted on norepinephrine this morning. Patient is postop day #13 status post exploratory laparotomy, lysis of extensive adhesions, repair of parastomal hernia and small bowel resection for small bowel obstruction due to parastomal hernia and adhesions. Patient required be placed on BiPAP. He's also be starting on dobutamine and he continues on IV Lasix and IV albumin. His ostomy is functioning he had 100 mL of liquidy stool. No blood noted. Denies abdominal pain. Afebrile. White count decreasing from 25.7-15.6 hemoglobin 9.2 platelets 231 creatinine 2.42 Patient seen and examined with Dr. velarde PHYSICAL EXAM: VITAL SIGNS: Reviewed. GENERAL: Intubated HEENT: No sclera icterus. Extraocular movements grossly intact. Moist buccal mucosa. Head is atraumatic, normocephalic. ABDOMEN: Soft. Nondistended. Serous drainage noted from incision. Does have one Aquacel Silver wick at the top of the incision. Ostomy functioning with liquidy brown stool ASSESSMENT: 1. 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 Left hydronephrosis secondary to left ureteral stricture status post cystoscopy with left ureteroscopy balloon dilatation of the left distal ureteral stricture and left ureteral stent insertion by Dr. Cool 3. Sustained ventricle tachycardia 4. Distended gallbladder with cholelithiasis 5. Possible postoperative ileus 6. Leukocytosis 7. GI bleeding with blood noted in stool in ostomy bag likely secondary to the anticoagulation. Now resolved 8. Severe protein calorie malnutrition 9. History of atrial fibrillation 10. C. diff colitis PLAN: -Continue ICU management -Continue supportive care -Continue antibiotics -Continue TPN for nutrition support Physician Superintendent Pressure note has been reviewed by physician. Signing provider agrees with the documented findings, assessment, and plan of care. Objective - Vital Signs Vital signs: Vital Signs Temp 98.3 F 12/22/21 12:00 Pulse 70 12/22/21 13:00 Resp 24 12/22/21 13:00 BP 117/52 12/22/21 13:00 Pulse Ox 95 12/22/21 13:00 Intake & Output 12/21/21 12/22/21 12/22/21 18:59 06:59 18:59 Intake Total 755 1073.264 855.990 Output Total 1600 2490 435 Balance -845 -1416.736 420.990 Weight 95 kg Intake: IV 180 945 595 Albumin Human 25% 50 ml 100 In Empty Bag 1 bag @ 200 mls/hr IVPB DAILY@0900 [facility] Rx#:[id number] Sodium Chloride 0.9% 1, 80 120 70 000 ml @ 20 mls/hr IV . Q24H [facility] Rx#:[id number] Sodium Phosphate 9 mmol 825 525 Sodium Acetate 20 meq Potassium Acetate 40 meq Magnesium Sulfate Syg 4. 06 meq Calcium Gluconate 1 gm In Amino Acids 5 %/ Dextrose 20 % 1,000 ml @ 75 mls/hr IV .BY DURATION [facility] Rx#:[id number] Intake, IV Titration 475 128.264 260.990 Amount DOBUTamine DRIP 500 mg In 63.938 186.062 Dextrose/Water 1 250ml. bag @ 2.5 MCG/KG/MIN 6. 975 mls/hr IV .Q24H [facility] Rx#:[id number] Dexmedetomidine/0.9% NaCl 64.326 12.323 (Pmx) 400 mcg In Empty Bag 1 bag @ 0.2 MCG/KG/HR 4.65 mls/hr IV .[id number] [facility] Rx#:[id number] Mvi, Adult No.4 with Vit 375 K 10 ml Trace (Conc-1Ml/ Dose) 1 ml Sodium Phosphate 9 mmol Sodium Acetate 20 meq Potassium Acetate 40 meq Magnesium Sulfate Syg 4.06 meq Calcium Gluconate 1 gm In Amino Acids 5 %/Dextrose 20 % 1,000 ml @ 75 mls/ hr IV .BY DURATION [facility] Rx #:[id number] Piperacillin-Tazobactam 3 100 .375 gm In Sodium Chloride 0.9% 100 ml @ 25 mls/hr IVPB Q8H [facility] Rx#: [id number] propofoL 1,000 mg In 62.605 Empty Bag 1 bag @ 5 MCG/ KG/MIN 2.85 mls/hr IV . Q24H [facility] Rx#:[id number] Oral 100 Output: Urine 1600 1190 435 Stool 1300 Other: Voiding Method Indwelling Catheter Indwelling Catheter Indwelling Catheter # Bowel Movements 1 ABP, PAP, CO, CI - Last Documented Arterial Blood Pressure 135/41 - Labs CBC & Chem 7: 12/22/21 04:32 12/22/21 04:32 Labs: Abnormal Lab Results - Last 24 Hours (Table) 12/21/21 12/21/21 12/21/21 Range/Units 17:22 20:24 23:52 RBC (4.30-5.90) m/uL Hgb (13.0-17.5) gm/dL Hct (39.0-53.0) % MCV (80.0-100.0) fL MCHC (31.0-37.0) g/dL Neutrophils # (1.3-7.7) k/uL Lymphocytes # (1.0-4.8) k/uL ABG pH (7.35-7.45) ABG pCO2 (35-45) mmHg ABG pO2 (83-108) mmHg ABG O2 Saturation (94-97) % Chloride (98-107) mmol/L Carbon Dioxide (22-30) mmol/L BUN (9-20) mg/dL Creatinine (0.66-1.25) mg/dL Glucose (74-99) mg/dL POC Glucose (mg/dL) 202 H 212 H 173 H (75-99) mg/dL Calcium (8.4-10.2) mg/dL Phosphorus (2.5-4.5) mg/dL Prealbumin (18.0-42.0) mg/dL 12/22/21 12/22/21 12/22/21 Range/Units 04:32 04:32 04:32 RBC 2.51 L (4.30-5.90) m/uL Hgb 8.0 L (13.0-17.5) gm/dL Hct 26.5 L (39.0-53.0) % MCV 105.4 H D (80.0-100.0) fL MCHC 30.2 L (31.0-37.0) g/dL Neutrophils # 9.1 H (1.3-7.7) k/uL Lymphocytes # 0.3 L (1.0-4.8) k/uL ABG pH (7.35-7.45) ABG pCO2 (35-45) mmHg ABG pO2 (83-108) mmHg ABG O2 Saturation (94-97) % Chloride 109 H (98-107) mmol/L Carbon Dioxide 17 L (22-30) mmol/L BUN 91 H (9-20) mg/dL Creatinine 2.62 H (0.66-1.25) mg/dL Glucose 103 H (74-99) mg/dL POC Glucose (mg/dL) (75-99) mg/dL Calcium 7.1 L (8.4-10.2) mg/dL Phosphorus 5.2 H (2.5-4.5) mg/dL Prealbumin 5.7 L (18.0-42.0) mg/dL 12/22/21 12/22/21 12/22/21 Range/Units 05:41 07:23 09:27 RBC (4.30-5.90) m/uL Hgb (13.0-17.5) gm/dL Hct (39.0-53.0) % MCV (80.0-100.0) fL MCHC (31.0-37.0) g/dL Neutrophils # (1.3-7.7) k/uL Lymphocytes # (1.0-4.8) k/uL ABG pH 7.31 L (7.35-7.45) ABG pCO2 34 L (35-45) mmHg ABG pO2 61 L 194 H (83-108) mmHg ABG O2 Saturation 91.2 L 98.9 H (94-97) % Chloride (98-107) mmol/L Carbon Dioxide (22-30) mmol/L BUN (9-20) mg/dL Creatinine (0.66-1.25) mg/dL Glucose (74-99) mg/dL POC Glucose (mg/dL) 139 H (75-99) mg/dL Calcium (8.4-10.2) mg/dL Phosphorus (2.5-4.5) mg/dL Prealbumin (18.0-42.0) mg/dL 03/23/22 Range/Units 11:26 RBC (4.30-5.90) m/uL Hgb (13.0-17.5) gm/dL Hct (39.0-53.0) % MCV (80.0-100.0) fL MCHC (31.0-37.0) g/dL Neutrophils # (1.3-7.7) k/uL Lymphocytes # (1.0-4.8) k/uL ABG pH (7.35-7.45) ABG pCO2 (35-45) mmHg ABG pO2 (83-108) mmHg ABG O2 Saturation (94-97) % Chloride (98-107) mmol/L Carbon Dioxide (22-30) mmol/L BUN (9-20) mg/dL Creatinine (0.66-1.25) mg/dL Glucose (74-99) mg/dL POC Glucose (mg/dL) 203 H (75-99) mg/dL Calcium (8.4-10.2) mg/dL Phosphorus (2.5-4.5) mg/dL Prealbumin (18.0-42.0) mg/dL
[2021-12-22] MEDS: SODIUM CHLORIDE 0.9% 1,000 ML IV SCH (16:00)
--- NOTE | 2021-12-22 17:27 | XR ---
EXAMINATION TYPE: XR chest 1V DATE OF EXAM: 12/22/2021 5:12 PM COMPARISON:Chest radiographs from 12/21/2021 earlier in the day. TECHNIQUE: XR chest 1V Frontal view of the chest. CLINICAL INDICATION:Male, 80 years old with history of check tube placement; FINDINGS: Lungs/Pleura: Multifocal airspace opacities. No evidence of pneumothorax or pleural effusion. Pulmonary vascularity: Pulmonary vascular congestion. Heart/mediastinum: Cardiomediastinal silhouette is partially obscured due to overlying and adjacent o pacities. Three lead cardiac conduction device overlying the left hemithorax with lead tips project ing over the right ventricle, right atrium and coronary sinus. Musculoskeletal: No acute osseous pathology. Lines/Tubes: Endotracheal tube with distal tip 3.4 cm above the yosi Nasogastric tube with its distal tip projecting in the distal esophagus. IMPRESSION: 1. Nasogastric tube with distal tip projecting in the distal esophagus consider advancement of a 0.0 cm for optimal placement. 2. Appropriate placement of endotracheal tube. 3. Persistent multifocal airspace opacities correlate for congestive heart failure with serum BNP.
[2021-12-22 18:01] LABS: Glucose,Whole Blood 146 mg/dL (75-99)
--- NOTE | 2021-12-22 18:39 | XR ---
EXAMINATION TYPE: XR chest 1V DATE OF EXAM: 12/22/2021 6:31 PM COMPARISON:Chest radiographs from same day TECHNIQUE: XR chest 1V Frontal view of the chest. CLINICAL INDICATION:Male, 80 years old with history of check OG tube placement; FINDINGS: Lungs/Pleura: Multifocal airspace opacities. No evidence of pneumothorax or pleural effusion. Pulmonary vascularity: Pulmonary vascular congestion. Heart/mediastinum: Cardiomediastinal silhouette is unremarkable. Musculoskeletal: No acute osseous pathology. Lines/Tubes: Endotracheal tube with distal tip 3.7 cm above the yosi Nasogastric tube now in appropriate position with distal tip and side-port projecting over the gastri c lumen. IMPRESSION: 1. Nasogastric tube in appropriate position. 2. The remainder of the exam is unchanged. 3. Persistent multifocal airspace opacities correlate for congestive heart failure with serum BNP.
[2021-12-22] MEDS: NOREPINEPHRINE 32 MG in SODIUM CHLORIDE 0.9% 218 ML IV SCH ×2 (19:26→22:25)
[2021-12-22] MEDS: INSULIN DETEMIR (LEVEMIR) 100 UNIT/ML SYR SQ SCH (20:48)
[2021-12-22] MEDS: ATORVASTATIN 40 MG TAB PO SCH (20:48)
[2021-12-22] MEDS: TAMSULOSIN 0.4 MG CAP.ER.24H PO SCH (20:48)
[2021-12-22 21:23] LABS: Glucose,Whole Blood 111 mg/dL (75-99)
[2021-12-22 23:55] LABS: Glucose,Whole Blood 104 mg/dL (75-99)
[2021-12-23] MEDS: PIPERACILLIN-TAZOBACTAM 3.375 GM in SODIUM CHLORIDE 0.9% 100 ML IVPB SCH (01:52)
[2021-12-23 04:30] LABS: Basophils % (A) 0 %; Eosinophils # (A) 1.1 k/uL (0-0.7); Eosinophils % (A) 6 %; HCT 30.1 % (39.0-53.0); HGB 9.3 gm/dL (13.0-17.5); Hypochromasia Marked; Lymphocytes # (A) 0.7 k/uL (1.0-4.8); Lymphocytes % (A) 4 %; MCH 30.7 pg (25.0-35.0); Macrocytosis Slight; Mean Platelet Volume 10.6; Monocytes # (A) 0.5 k/uL (0-1.0); Monocytes % (A) 2 %; Neutrophils # (A) 16.7 k/uL (1.3-7.7); Neutrophils % (A) 88 %; Platelet Count 306 k/uL (150-450); RBC 3.04 m/uL (4.30-5.90); RDW 14.6 % (11.5-15.5); WBC 19.1 k/uL (3.8-10.6)
[2021-12-23] MEDS: NOREPINEPHRINE 32 MG in SODIUM CHLORIDE 0.9% 218 ML IV SCH ×4 (04:36→22:30)
[2021-12-23 04:39] LABS: MCV 99.1 fL (80.0-100.0)
[2021-12-23 04:47] LABS: Albumin 2.1 g/dL (3.5-5.0); Calcium 7.3 mg/dL (8.4-10.2); Magnesium 2.2 mg/dL (1.6-2.3); Phosphorus 6.7 mg/dL (2.5-4.5); Potassium 4.9 mmol/L (3.5-5.1); Total Bilirubin 1.1 mg/dL (0.2-1.3); Total Protein 4.6 g/dL (6.3-8.2)
[2021-12-23 05:43] LABS: Glucose,Whole Blood 93 mg/dL (75-99)
[2021-12-23] MEDS: INSULIN ASPART (NovoLOG) 100 UNIT/ML VIAL SQ SCH ×3 (05:49→17:14)
[2021-12-23 05:56] LABS: ABG Base Excess -8.6 mmol/L; ABG HCO3 18 mmol/L (21-25); ABG Oxygen Saturation 98.6 % (94-97); ABG PCO2 38 mmHg (35-45); ABG PH 7.28 (7.35-7.45); ABG PO2 137 mmHg (83-108); ABG TCO2 19 mmol/L (19-24); Allen Test Performed? Yes
--- NOTE | 2021-12-23 08:03 | P.PN ---
Subjective Progress Note Date: 12/23/21 PROGRESS NOTE The patient is an 80-year-old male with known history of CAD status post stenting, cardiomyopathy him of ventricle tachycardia and ICD implantation who underwent exploratory laparotomy and colostomy. He had episode of recurrent ventricular tachycardia, has been stable after the addition of amiodarone and mexiletine. He continues to be in sinus mechanism. His blood pressure is stable. He continues to have peripheral edema but his urinary output has been stable. He denies any chest discomfort or dizziness. He is confused at times. There is no further evidence of ventricular tachycardia. His colostomy is working. He continues to be on amiodarone 400 mg twice a day, Lipitor 40 mg daily, Lasix 40 mg IV every 8 hours insulin, mexiletine 200 mg every 8 hours, spironolactone 12-1/2 mg daily December 22: The patient is more confused today, continues to be in sinus mechanism with no evidence of ventricular tachycardia or atrial fibrillation. He continues to be on dobutamine. His blood pressure is on the low side. His colostomy is functioning. He continues to have significant peripheral edema. He is receiving IV Lasix. There is no evidence of GI bleeding. In the past his ejection fraction was 40-45%, his most recent echocardiogram was suboptimal and no evaluation of his LV systolic function could be made. He continues to be on amiodarone 400 mg twice a day, mexiletine 200 mg every 8 hours, aspirin once a day in addition to Lasix 40 mg IV every 8 hours. December 23: The patient became more somnolent with respiratory distress, requiring mechanical ventilation. He is intubated and sedated. He continues to be on IV dobutamine and norepinephrine. He continues to be in sinus mechanism with no evidence of atrial or ventricular arrhythmia. An echocardiogram performed yesterday showed an ejection fraction of 45-50% with mild aortic stenosis and tricuspid regurgitation with mild pulmonary hypertension. He has good urine output but continues to have significant edema. He continues to be on amiodarone 400 mg twice a day, mexiletine 200 mg 3 times a day, Lasix 40 mg daily, Lipitor 40 mg daily, aspirin and Aldactone 12-1/2 mg daily. PHYSICAL EXAMINATION: Intubated and sedated Blood pressure ranging between 96/50 heart rate in the 84 LUNGS: Clear to auscultation anteriorly with mild decrease breath sounds at the bases HEART: Regular rate and rhythm, S1, S2. No S3. systolic ejection murmur ABDOMEN: Soft, nontender, no organomegaly, colostomy bag in place EXTREMETIES: 2+ to 3+ edema LAB: BUN 88, creatinine 3.05, potassium 4.9, white blood cell 19.1 with a hemoglobin of 9.3 IMPRESSION: 1. Status post exploratory laparotomy and colostomy 2. Ventricle tachycardia, stable on present regimen 3. History of coronary artery disease and cardiomyopathy. Most recent echocardiogram showed an ejection fraction of 40-45% 4. Worsening renal failure 5. Paroxysmal atrial fibrillation, now in sinus mechanism 6. Anemia 7. Third spacing with peripheral edema 8. Respiratory failure with fluid overload with decrease in mentation. Urinary output at this time stable. PLAN: 1. Continue IV Lasix 2. Close follow-up of his renal functions 3. Decrease amiodarone to 200 mg twice a day 4. Norepinephrine as needed for blood pressure control 5. Prognosis is guarded. Objective - Vital Signs Vital signs: Vital Signs Temp 98.7 F 12/23/21 04:00 Pulse 84 12/23/21 07:00 Resp 28 H 12/23/21 07:00 BP 96/47 12/23/21 07:00 Pulse Ox 98 12/23/21 07:00 Intake & Output 12/22/21 12/23/21 12/23/21 18:59 06:59 18:59 Intake Total 3497.106 2433.335 40 Output Total 622 715 70 Balance 987.333 699.335 -30 Weight 93 kg 93.4 kg Intake: IV 1020 240 20 Sodium Chloride 0.9% 1, 120 240 20 000 ml @ 20 mls/hr IV . Q24H [facility] Rx#:[id number] Sodium Phosphate 9 mmol 900 Sodium Acetate 20 meq Potassium Acetate 40 meq Magnesium Sulfate Syg 4. 06 meq Calcium Gluconate 1 gm In Amino Acids 5 %/ Dextrose 20 % 1,000 ml @ 75 mls/hr IV .BY DURATION [facility] Rx#:[id number] Intake, IV Titration 589.333 904.335 Amount DOBUTamine DRIP 500 mg In 186.062 185.768 Dextrose/Water 1 250ml. bag @ 2.5 MCG/KG/MIN 6. 975 mls/hr IV .Q24H [facility] Rx#:[id number] Dexmedetomidine/0.9% NaCl 12.323 (Pmx) 400 mcg In Empty Bag 1 bag @ 0.2 MCG/KG/HR 4.65 mls/hr IV .[id number] [facility] Rx#:[id number] Norepinephrine 32 mg In 342.567 Sodium Chloride 0.9% 218 ml @ 0.05 MCG/KG/MIN 2.18 mls/hr IV .Q24H [facility] Rx#: [id number] Norepinephrine 8 mg In 228.343 Sodium Chloride 0.9% 250 ml @ 0.05 MCG/KG/MIN 9. 385 mls/hr IV .Q24H [facility] Rx#:[id number] propofoL 1,000 mg In 162.605 376.000 Empty Bag 1 bag @ 5 MCG/ KG/MIN 2.85 mls/hr IV . Q24H [facility] Rx#:[id number] Tube Feeding 180 20 Other 90 Output: Urine 622 605 70 Stool 110 Other: Voiding Method Indwelling Catheter Indwelling Catheter ABP, PAP, CO, CI - Last Documented Arterial Blood Pressure 122/41 - Labs CBC & Chem 7: 12/23/21 04:18 12/23/21 04:18 Labs: Abnormal Lab Results - Last 24 Hours (Table) 12/22/21 12/22/21 12/22/21 Range/Units 04:32 04:32 09:27 WBC (3.8-10.6) k/uL RBC 2.51 L (4.30-5.90) m/uL Hgb 8.0 L (13.0-17.5) gm/dL Hct 26.5 L (39.0-53.0) % MCV 105.4 H D (80.0-100.0) fL MCHC 30.2 L (31.0-37.0) g/dL Neutrophils # 9.1 H (1.3-7.7) k/uL Lymphocytes # 0.3 L (1.0-4.8) k/uL Eosinophils # (0-0.7) k/uL ABG pH 7.31 L (7.35-7.45) ABG pO2 194 H (83-108) mmHg ABG HCO3 (21-25) mmol/L ABG O2 Saturation 98.9 H (94-97) % Chloride (98-107) mmol/L Carbon Dioxide (22-30) mmol/L BUN (9-20) mg/dL Creatinine (0.66-1.25) mg/dL Glucose (74-99) mg/dL POC Glucose (mg/dL) (75-99) mg/dL Calcium (8.4-10.2) mg/dL Phosphorus (2.5-4.5) mg/dL ALT (4-49) U/L Alkaline Phosphatase (38-126) U/L Total Protein (6.3-8.2) g/dL Albumin (3.5-5.0) g/dL Prealbumin 5.7 L (18.0-42.0) mg/dL 12/22/21 12/22/21 12/22/21 Range/Units 11:26 18:00 21:20 WBC (3.8-10.6) k/uL RBC (4.30-5.90) m/uL Hgb (13.0-17.5) gm/dL Hct (39.0-53.0) % MCV (80.0-100.0) fL MCHC (31.0-37.0) g/dL Neutrophils # (1.3-7.7) k/uL Lymphocytes # (1.0-4.8) k/uL Eosinophils # (0-0.7) k/uL ABG pH (7.35-7.45) ABG pO2 (83-108) mmHg ABG HCO3 (21-25) mmol/L ABG O2 Saturation (94-97) % Chloride (98-107) mmol/L Carbon Dioxide (22-30) mmol/L BUN (9-20) mg/dL Creatinine (0.66-1.25) mg/dL Glucose (74-99) mg/dL POC Glucose (mg/dL) 203 H 146 H 111 H (75-99) mg/dL Calcium (8.4-10.2) mg/dL Phosphorus (2.5-4.5) mg/dL ALT (4-49) U/L Alkaline Phosphatase (38-126) U/L Total Protein (6.3-8.2) g/dL Albumin (3.5-5.0) g/dL Prealbumin (18.0-42.0) mg/dL 12/22/21 12/23/21 12/23/21 Range/Units 23:53 04:18 04:18 WBC 19.1 H (3.8-10.6) k/uL RBC 3.04 L (4.30-5.90) m/uL Hgb 9.3 L (13.0-17.5) gm/dL Hct 30.1 L (39.0-53.0) % MCV (80.0-100.0) fL MCHC (31.0-37.0) g/dL Neutrophils # 16.7 H (1.3-7.7) k/uL Lymphocytes # 0.7 L (1.0-4.8) k/uL Eosinophils # 1.1 H (0-0.7) k/uL ABG pH (7.35-7.45) ABG pO2 (83-108) mmHg ABG HCO3 (21-25) mmol/L ABG O2 Saturation (94-97) % Chloride 112 H (98-107) mmol/L Carbon Dioxide 19 L (22-30) mmol/L BUN 88 H (9-20) mg/dL Creatinine 3.05 H (0.66-1.25) mg/dL Glucose 108 H (74-99) mg/dL POC Glucose (mg/dL) 104 H (75-99) mg/dL Calcium 7.3 L (8.4-10.2) mg/dL Phosphorus 6.7 H (2.5-4.5) mg/dL ALT 61 H (4-49) U/L Alkaline Phosphatase 152 H (38-126) U/L Total Protein 4.6 L (6.3-8.2) g/dL Albumin 2.1 L (3.5-5.0) g/dL Prealbumin (18.0-42.0) mg/dL 12/23/21 Range/Units 05:51 WBC (3.8-10.6) k/uL RBC (4.30-5.90) m/uL Hgb (13.0-17.5) gm/dL Hct (39.0-53.0) % MCV (80.0-100.0) fL MCHC (31.0-37.0) g/dL Neutrophils # (1.3-7.7) k/uL Lymphocytes # (1.0-4.8) k/uL Eosinophils # (0-0.7) k/uL ABG pH 7.28 L (7.35-7.45) ABG pO2 137 H (83-108) mmHg ABG HCO3 18 L (21-25) mmol/L ABG O2 Saturation 98.6 H (94-97) % Chloride (98-107) mmol/L Carbon Dioxide (22-30) mmol/L BUN (9-20) mg/dL Creatinine (0.66-1.25) mg/dL Glucose (74-99) mg/dL POC Glucose (mg/dL) (75-99) mg/dL Calcium (8.4-10.2) mg/dL Phosphorus (2.5-4.5) mg/dL ALT (4-49) U/L Alkaline Phosphatase (38-126) U/L Total Protein (6.3-8.2) g/dL Albumin (3.5-5.0) g/dL Prealbumin (18.0-42.0) mg/dL
--- NOTE | 2021-12-23 08:09 | P.PN ---
Subjective Progress Note Date: 12/23/21 (delayed charting seen at 0845) Principal diagnosis: intractable nausea and vomiting 80-year-old male with known colorectal cancer status post colostomy 21 years ago, coronary artery disease, hypertension, dyslipidemia, and multiple other comorbid conditions who initially presented to hospital with complaints of intractable nausea and vomiting. He had initially presented to the ER approximately 6 days before admission and was discharged home. On re-presentat ion he was found have a urinary tract infection with sepsis and possible small bowel obstruction. He was started on IV Rocephin and Flagyl along with IV fluids. Urology was consulted. Imaging: KUB 12/08-dilated small bowel measuring up to 6.4 cm suspect distal small bowel obstruction. CT abdomen and pelvis 12/08-acute high-grade mechanical small bowel obstruction with a transition point in the left lower quadrant peristomal hernia, persistent left distal ureter obstructing calculi with moderate left-sided hydroureter and hydronephrosis. Liver ultrasound 12/11-cholelithiasis with distended gallbladder possibly indicating acute cholecystitis, renal stone with mild to moderate hydronephrosis Echo 12/13- poor study unable to calculate EF CT abdomen and pelvis 12/13: Left lower quadrant peristomal hernia currently 9 cm wide with hernia sac containing some redundant sigmoid colon, diffuse dilated proximal and mid small bowel NG tube is lupus and is moderate-sized hiatal hernia and contrast baths of the esophagus, few tiny foci of free air in the right upper quadrant and pelvis, generalized anasarca, small to moderate pleural effusions bilaterally, left ureteric stent, hydropic gallbladder with cholelithiasis Echo 12/22- EF 45-50%, sevrelt enlarged RV, Procedures: Left ureteroscopy with balloon dilation of the left distal ureter with stent placement and cystoscopy 12/09 Exploratory laparotomy with lysis of adhesion and repair of parastomal hernia and small bowel resection 12/09 Left subclavian triple-lumen catheter placed 12/12 Artline 12/22 From 12/20 through 12/22 patient was gradually getting worse, more agitated, and requiring more oxygen support. He was also placed on Precedex to help with agitation. He was subsequently reintubated on 12/22. He required vasopressor support. My first Eval on hospital day # 15 Patient unresponsive on vent. Events per nursing noted above. General: Ill appearing, maximal distress, appears older than stated age Derm: warm, dry Head: atraumatic, normocephalic, symmetric Eyes: EOMI, no lid lag, anicteric sclera Mouth: no lip lesion, mucus membranes moist Cardiovascular: S1S2 reg, no murmur, positive posterior tibial pulse bilateral, Lungs: CTA bilateral, no rhonchi, no rales , no accessory muscle use, on vent Abdominal: soft, nontender to palpation, no guarding, no appreciable organomegaly Ext: no gross muscle atrophy, diffuse anasarca , no contractures Neuro: PERRL, Breathing over the vent, + cough Psych: Intubated and sedated Assessment/plan: Urinary tract infection, complicated with pseudomonas and sepsis Obstructive uropathy 3 status post stent placement 12/09 Small bowel obstruction Acute cholecystitis GI bleeding with stool noted ostomy bag-suspected secondary to anticoagulation Acute hypoxic respiratory failure, possible underlying aspiration pneumonia -Patient completed antibiotics for UTI on 12/16 with Zosyn, would resume -Urology recommendations appreciated: Needs outpatient follow-up, flomax -General surgery recommendations: On TPN - continue with levophed, vaso - Critical care recs appreciated: managing vent SHITAL on CKD 3 baseline Cr 2 - Follow Cr closely - consult nephrology - likely multifactorial Acute exacerbation systolic 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 fib -Cardiology recommendations -Amiodarone oral,Mexlietine - Dobutamine -On aldactone -strict I's and O's, daily weights -Telemetry C. diff infection -On oral vancomycin - Consult ID Acute blood loss anemia -Status post packed red blood cells on 12/16 Severe protein calorie malnutrition -On TPN Hyperglycemia -Continue with sliding scale insulin and Levemir 15 units at night -Follow blood sugars -Hemoglobin A1c 5.7, will need repeat in 3 monhts Coronary artery disease status post stenting -Aspirin -Lipitor Hyperlipidemia Essential hypertension DVT prophylaxis: adding heparin Discussed with: Nursing, no family present at bedside Anticipated discharge: undetermined Anticipated discharge place: undetermined A total of 45 minutes was spent on the care of this complex patient more than 50% of the time was spent in counseling and care coordination. Active Medications Generic Name Dose Route Start Last Admin Trade Name Freq PRN Reason Stop Dose Admin Acetaminophen 650 mg 12/15/21 10:16 12/15/21 11:56 Acetaminophen Tab 325 Mg Tab PO 650 mg Q6HR PRN Administration Fever and/ or MILD Pain Hydrocodone Bitart/Acetaminophen 1 each 12/09/21 23:32 Hydrocodone/Apap 7.5-325mg 1 Each Tab PO Q6H PRN MODERATE Pain Amiodarone HCl 200 mg 12/23/21 09:00 12/23/21 10:18 Amiodarone 200 Mg Tab PO 200 mg BID ANGELITA Administration Aspirin 81 mg 12/21/21 09:00 12/23/21 10:17 Aspirin 81 Mg PO 81 mg DAILY ANGELITA Administration Atorvastatin Calcium 40 mg 12/08/21 21:00 12/22/21 20:48 Atorvastatin 40 Mg Tab PO 40 mg HS ANGELITA Administration Chlorhexidine Gluconate 15 ml 12/22/21 09:30 12/23/21 10:17 Chlorhexidine Gluconate 15 Ml Cup MUCOUS MEM 15 ml BID ANGELITA Administration Famotidine 20 mg 12/10/21 13:30 12/23/21 10:18 Famotidine 20 Mg/2 Ml Vial IV 20 mg DAILY ANGELITA Administration Finasteride 5 mg 12/09/21 09:00 12/23/21 10:16 Finasteride 5 Mg Tab PO 5 mg DAILY ANGELITA Administration Heparin Sodium (Porcine) 5,000 unit 12/23/21 16:00 12/23/21 15:06 Heparin Sodium,Porcine/Pf 5,000 Unit/0.5 Ml Syringe SQ 5,000 unit Q8HR ANGELITA Administration Hydrocortisone Sodium Succinate 100 mg 12/23/21 16:00 12/23/21 15:05 Hydrocortisone Succinate 100 Mg/2 Ml Vial IV 100 mg Q8HR ANGELITA Administration Hydromorphone HCl 1 mg 12/21/21 14:51 12/22/21 06:14 Hydromorphone 1 Mg/Ml 1 Ml Syringe IVP 1 mg Q2H PRN Administration Breakthrough Pain Sodium Chloride 1,000 mls @ 20 mls/hr 12/14/21 09:45 12/23/21 10:15 Saline 0.9% IV 20 mls/hr .Q24H ANGELITA Administration Dobutamine HCl/Dextrose 500 mg 250 mls @ 6.975 mls/hr 12/21/21 09:15 12/23/21 10:19 / IV Solution IV 5 mcg/kg/min .Q24H ANGELITA 13.95 mls/hr Administration 2.5 MCG/KG/MIN Propofol 1,000 mg/ IV Solution 100 mls @ 2.85 mls/hr 12/22/21 09:30 12/23/21 17:13 IV 50 mcg/kg/min .Q24H ANGELITA 28.5 mls/hr Administration Protocol 5 MCG/KG/MIN Norepinephrine Bitartrate 32 250 mls @ 2.18 mls/hr 12/22/21 19:15 12/23/21 17:23 mg/ Sodium Chloride IV 1 mcg/kg/min .Q24H ANGELITA 43.594 mls/hr Administration Protocol 0.05 MCG/KG/MIN Piperacillin Sod/Tazobactam 100 mls @ 25 mls/hr 12/23/21 14:00 12/23/21 14:22 Sod 3.375 gm/ Sodium Chloride IVPB 25 mls/hr Q12H ANGELITA Administration Protocol Vasopressin 60 unit/ Sodium 153 mls @ 6.12 mls/hr 12/23/21 08:30 12/23/21 08:36 Chloride IV 4.59 mls/hr .Q24H ANGELITA Administration Protocol 0.04 UNITS/MIN Cefepime HCl 2 gm/ Sodium 100 mls @ 25 mls/hr 12/23/21 09:00 12/23/21 10:16 Chloride IVPB 25 mls/hr Q12HR ANGELITA Administration Protocol Sodium Bicarbonate 150 ml/ 1,150 mls @ 50 mls/hr 12/23/21 09:45 12/23/21 10:15 Dextrose/Water IV 50 mls/hr .Q23H ANGELITA Administration Furosemide 100 mg/ Sodium 100 mls @ 10 mls/hr 12/23/21 11:15 12/23/21 12:41 Chloride IV 10 mg/hr .Q10H ANGELITA 10 mls/hr Administration 10 MG/HR Metronidazole 500 mg/ IV 100 mls @ 100 mls/hr 12/23/21 16:00 12/23/21 15:06 Solution IVPB 100 mls/hr Q8HR ANGELITA Administration Protocol Insulin Aspart 0 unit 12/14/21 18:00 12/23/21 17:14 Insulin Aspart (Novolog) 100 Unit/Ml Vial SQ 2 unit Q6H ANGELITA Administration Protocol Insulin Detemir 15 unit 12/19/21 21:00 12/22/21 20:48 Insulin Detemir (Levemir) 100 Unit/Ml Syr SQ 15 unit HS ANGELITA Administration Mexiletine HCl 200 mg 12/17/21 08:00 12/23/21 15:06 Mexiletine 200 Mg Cap PO 200 mg Q8HR ANGELITA Administration Miscellaneous Information 1 each 12/15/21 07:39 Potassium Replacement Protocol 1 Each Misc MISCELLANE DAILY PRN Per Protocol Protocol Naloxone HCl 0.2 mg 12/08/21 11:53 Naloxone 0.4 Mg/Ml 1 Ml Vial IV Q2M PRN Opioid Reversal Spironolactone 12.5 mg 12/09/21 09:00 12/23/21 10:17 Spironolactone 25 Mg Tab PO 12.5 mg DAILY ANGELITA Administration Tamsulosin HCl 0.4 mg 12/08/21 21:00 12/22/21 20:48 Tamsulosin 0.4 Mg Cap.Er.24h PO 0.4 mg HS ANGELITA Administration Vancomycin HCl 500 mg 12/23/21 13:00 12/23/21 17:23 Vancomycin Oral Solution 250 Mg/5 Ml Bottle PO 12/26/21 13:01 500 mg QID ANGELITA Administration Protocol Objective - Vital Signs Vital signs: Vital Signs Temp 98.7 F 12/23/21 04:00 Pulse 84 12/23/21 07:00 Resp 28 H 12/23/21 07:00 BP 96/47 12/23/21 07:00 Pulse Ox 98 12/23/21 07:00 Intake & Output 12/22/21 12/23/21 12/23/21 18:59 06:59 18:59 Intake Total 6446.272 4869.335 40 Output Total 622 715 70 Balance 987.333 699.335 -30 Weight 93 kg 93.4 kg Intake: IV 1020 240 20 Sodium Chloride 0.9% 1, 120 240 20 000 ml @ 20 mls/hr IV . Q24H ANGELITA Rx#:[id number] Sodium Phosphate 9 mmol 900 Sodium Acetate 20 meq Potassium Acetate 40 meq Magnesium Sulfate Syg 4. 06 meq Calcium Gluconate 1 gm In Amino Acids 5 %/ Dextrose 20 % 1,000 ml @ 75 mls/hr IV .BY DURATION ANGELITA Rx#:[id number] Intake, IV Titration 589.333 904.335 Amount DOBUTamine DRIP 500 mg In 186.062 185.768 Dextrose/Water 1 250ml. bag @ 2.5 MCG/KG/MIN 6. 975 mls/hr IV .Q24H ANGELITA Rx#:[id number] Dexmedetomidine/0.9% NaCl 12.323 (Pmx) 400 mcg In Empty Bag 1 bag @ 0.2 MCG/KG/HR 4.65 mls/hr IV .[id number] ANGELITA Rx#:[id number] Norepinephrine 32 mg In 342.567 Sodium Chloride 0.9% 218 ml @ 0.05 MCG/KG/MIN 2.18 mls/hr IV .Q24H ANGELITA Rx#: [id number] Norepinephrine 8 mg In 228.343 Sodium Chloride 0.9% 250 ml @ 0.05 MCG/KG/MIN 9. 385 mls/hr IV .Q24H ANGELITA Rx#:[id number] propofoL 1,000 mg In 162.605 376.000 Empty Bag 1 bag @ 5 MCG/ KG/MIN 2.85 mls/hr IV . Q24H ANGELITA Rx#:[id number] Tube Feeding 180 20 Other 90 Output: Urine 622 605 70 Stool 110 Other: Voiding Method Indwelling Catheter Indwelling Catheter ABP, PAP, CO, CI - Last Documented Arterial Blood Pressure 122/41 - Labs CBC & Chem 7: 12/23/21 04:18 12/23/21 04:18 Labs: Abnormal Lab Results - Last 24 Hours (Table) 12/22/21 12/22/21 12/22/21 Range/Units 04:32 04:32 09:27 WBC (3.8-10.6) k/uL RBC 2.51 L (4.30-5.90) m/uL Hgb 8.0 L (13.0-17.5) gm/dL Hct 26.5 L (39.0-53.0) % MCV 105.4 H D (80.0-100.0) fL MCHC 30.2 L (31.0-37.0) g/dL Neutrophils # 9.1 H (1.3-7.7) k/uL Lymphocytes # 0.3 L (1.0-4.8) k/uL Eosinophils # (0-0.7) k/uL ABG pH 7.31 L (7.35-7.45) ABG pO2 194 H (83-108) mmHg ABG HCO3 (21-25) mmol/L ABG O2 Saturation 98.9 H (94-97) % Chloride (98-107) mmol/L Carbon Dioxide (22-30) mmol/L BUN (9-20) mg/dL Creatinine (0.66-1.25) mg/dL Glucose (74-99) mg/dL POC Glucose (mg/dL) (75-99) mg/dL Calcium (8.4-10.2) mg/dL Phosphorus (2.5-4.5) mg/dL ALT (4-49) U/L Alkaline Phosphatase (38-126) U/L Total Protein (6.3-8.2) g/dL Albumin (3.5-5.0) g/dL Prealbumin 5.7 L (18.0-42.0) mg/dL 12/22/21 12/22/21 12/22/21 Range/Units 11:26 18:00 21:20 WBC (3.8-10.6) k/uL RBC (4.30-5.90) m/uL Hgb (13.0-17.5) gm/dL Hct (39.0-53.0) % MCV (80.0-100.0) fL MCHC (31.0-37.0) g/dL Neutrophils # (1.3-7.7) k/uL Lymphocytes # (1.0-4.8) k/uL Eosinophils # (0-0.7) k/uL ABG pH (7.35-7.45) ABG pO2 (83-108) mmHg ABG HCO3 (21-25) mmol/L ABG O2 Saturation (94-97) % Chloride (98-107) mmol/L Carbon Dioxide (22-30) mmol/L BUN (9-20) mg/dL Creatinine (0.66-1.25) mg/dL Glucose (74-99) mg/dL POC Glucose (mg/dL) 203 H 146 H 111 H (75-99) mg/dL Calcium (8.4-10.2) mg/dL Phosphorus (2.5-4.5) mg/dL ALT (4-49) U/L Alkaline Phosphatase (38-126) U/L Total Protein (6.3-8.2) g/dL Albumin (3.5-5.0) g/dL Prealbumin (18.0-42.0) mg/dL 0323/22 03/24/22 03/24/22 Range/Units 23:53 04:18 04:18 WBC 19.1 H (3.8-10.6) k/uL RBC 3.04 L (4.30-5.90) m/uL Hgb 9.3 L (13.0-17.5) gm/dL Hct 30.1 L (39.0-53.0) % MCV (80.0-100.0) fL MCHC (31.0-37.0) g/dL Neutrophils # 16.7 H (1.3-7.7) k/uL Lymphocytes # 0.7 L (1.0-4.8) k/uL Eosinophils # 1.1 H (0-0.7) k/uL ABG pH (7.35-7.45) ABG pO2 (83-108) mmHg ABG HCO3 (21-25) mmol/L ABG O2 Saturation (94-97) % Chloride 112 H (98-107) mmol/L Carbon Dioxide 19 L (22-30) mmol/L BUN 88 H (9-20) mg/dL Creatinine 3.05 H (0.66-1.25) mg/dL Glucose 108 H (74-99) mg/dL POC Glucose (mg/dL) 104 H (75-99) mg/dL Calcium 7.3 L (8.4-10.2) mg/dL Phosphorus 6.7 H (2.5-4.5) mg/dL ALT 61 H (4-49) U/L Alkaline Phosphatase 152 H (38-126) U/L Total Protein 4.6 L (6.3-8.2) g/dL Albumin 2.1 L (3.5-5.0) g/dL Prealbumin (18.0-42.0) mg/dL 12/23/21 Range/Units 05:51 WBC (3.8-10.6) k/uL RBC (4.30-5.90) m/uL Hgb (13.0-17.5) gm/dL Hct (39.0-53.0) % MCV (80.0-100.0) fL MCHC (31.0-37.0) g/dL Neutrophils # (1.3-7.7) k/uL Lymphocytes # (1.0-4.8) k/uL Eosinophils # (0-0.7) k/uL ABG pH 7.28 L (7.35-7.45) ABG pO2 137 H (83-108) mmHg ABG HCO3 18 L (21-25) mmol/L ABG O2 Saturation 98.6 H (94-97) % Chloride (98-107) mmol/L Carbon Dioxide (22-30) mmol/L BUN (9-20) mg/dL Creatinine (0.66-1.25) mg/dL Glucose (74-99) mg/dL POC Glucose (mg/dL) (75-99) mg/dL Calcium (8.4-10.2) mg/dL Phosphorus (2.5-4.5) mg/dL ALT (4-49) U/L Alkaline Phosphatase (38-126) U/L Total Protein (6.3-8.2) g/dL Albumin (3.5-5.0) g/dL Prealbumin (18.0-42.0) mg/dL
[2021-12-23] MEDS: SODIUM CHLORIDE 0.9% 150 ML with VASOPRESSIN 60 UNIT IV SCH ×2 (08:36)
[2021-12-23] MEDS ORDERED: FUROSEMIDE 10 MG/ML 4 ML VIAL IV SCH ×3 (09:00→21:00)
--- NOTE | 2021-12-23 09:42 | XR ---
EXAMINATION TYPE: XR chest 1V portable DATE OF EXAM: 12/23/2021 COMPARISON: 12/22/2021 INDICATION: Tube placement TECHNIQUE: Single frontal view of the chest is obtained. FINDINGS: The heart size is normal. The pulmonary vasculature is normal. Left lung infiltrate has improved. There is residual right peripheral lung infiltrate. Lateral right chest is excluded from the [id number] Endotracheal tube tip is above the yosi. Nasogastric tube transverses the thorax with the tip in th e left upper quadrant of the abdomen. Electronic device overlies left chest. IMPRESSION: 1. Improving lung infiltrates. Continued follow-up is recommended.
[2021-12-23] MEDS: SODIUM CHLORIDE 0.9% 1,000 ML IV SCH (10:15)
[2021-12-23] MEDS: DEXTROSE 5% IN WATER 1,000 ML with SODIUM BICARB (1 MEQ/ML) 150 ML IV SCH (10:15)
[2021-12-23] MEDS: CEFEPIME 2 GM in SODIUM CHLORIDE 0.9% 100 ML IVPB SCH ×2 (10:16→20:23)
[2021-12-23] MEDS: FINASTERIDE 5 MG TAB PO SCH (10:16)
[2021-12-23] MEDS: MEXILETINE 200 MG CAP PO SCH ×2 (10:17→15:06)
[2021-12-23] MEDS: ASPIRIN 81 MG PO SCH (10:17)
[2021-12-23] MEDS: CHLORHEXIDINE GLUCONATE 15 ML CUP MUCOUS MEM SCH ×2 (10:17→20:23)
[2021-12-23] MEDS: SPIRONOLACTONE 25 MG TAB PO SCH (10:17)
[2021-12-23] MEDS: VANCOMYCIN ORAL SOLUTION 250 MG/5 ML BOTTLE PO SCH ×4 (10:18→22:30)
[2021-12-23] MEDS: FAMOTIDINE 20 MG/2 ML VIAL IV SCH (10:18)
[2021-12-23] MEDS: AMIODARONE 200 MG TAB PO SCH ×2 (10:18→20:23)
[2021-12-23] MEDS: DOBUTamine DRIP 500 MG in DEXTROSE/WATER 1 250ML.BAG IV SCH (10:19)
--- NOTE | 2021-12-23 11:19 | P.NPCON ---
History of Present Illness - Reason for Consult acute renal failure - History of Present Illness Patient is a 80-year-old male who was admitted to the hospital with abdominal pain. He was taken to the OR on 12/09/2021 for explorative laparotomy. He had lysis of adhesions and repair of parastomal hernia. He had a colostomy and prior to admission. Patient was also found to have left hydronephrosis recently and was scheduled to have left ureteral stent placement and stone removal which was done at the same time on 12/09/2021 along with explorative laparotomy. Patient was brought to the ICU 2 days post operatively. He has been hypotensive. He was also diagnosed with C. diff colitis. Patient was eventually intubated 3 days ago. Currently patient is on max dose of levo fed. He was started on vasopressin as well. He is also on dobutamine drip and just started on a bicarb drip this morning. Urine output has dropped to about 10-15 mL an hour. Patient has significant edema. Creatinine is 3.0 today. Serum creatinine on admission was 2.39 mg/dL and decreased to 1.46 on 12/17/2021. Patient appears to have underlying CK D with previous creatinine about 1.9-[address] back to March of 2021 Review of Systems As per HPI Past Medical History Past Medical History: Coronary Artery Disease (CAD), Cancer, COPD, Deep Vein T hrombosis (DVT), Hyperlipidemia, Hypertension, Osteoarthritis (OA), Sleep Apnea/CPAP/BIPAP Additional Past Medical History / Comment(s): colon cancer, SKIN CANCER, colostomy, vertigo, kidney stones, states very nauseated currently, DVT 03/2021 left leg, not using CPAP, currently on Rx for UTI Last Myocardial Infarction Date:: 03/2021 History of Any Multi-Drug Resistant Organisms: None Reported Past Surgical History: Adenoidectomy, AICD, Bowel Resection, Cardiac Ablation, Heart Catheterization With Stent, Hernia Repair, Pacemaker, Tonsillectomy Additional Past Surgical History / Comment(s): colostomy, two cardiac stents, Past Anesthesia/Blood Transfusion Reactions: No Reported Reaction Additional Past Anesthesia/Blood Transfusion Reaction / Comment(s): Pt received blood in the past without reaction. Date of Last Stent Placement:: 2020 Type of Cardiac Device: AICD Device Placement Date:: 04/01/2021 Past Psychological History: No Psychological Hx Reported Smoking Status: Never smoker - Past Family History Mother Family Medical History: Cancer Additional Family Medical History / Comment(s): Breast cancer. Father Additional Family Medical History / Comment(s): Valve replacement and pacemaker. Brother(s) Family Medical History: Coronary Artery Disease (CAD) Additional Family Medical History / Comment(s): CABG. Medications and Allergies Home Medications Medication Instructions Recorded Confirmed Type Atorvastatin [Lipitor] 40 mg PO HS 05/24/16 12/08/21 History Amiodarone [Cordarone] 200 mg PO BID 06/13/21 12/08/21 History Cholecalciferol [Vitamin D3 (25 50 mcg PO DAILY@1200 06/13/21 12/08/21 History Mcg = 1000 Iu)] Clopidogrel [Plavix] 75 mg PO DAILY 06/13/21 12/08/21 History Finasteride [Proscar] 5 mg PO DAILY 06/13/21 12/08/21 History Metoprolol Tartrate [Lopressor] 12.5 mg PO BID 06/13/21 12/08/21 History Sodium Bicarbonate Tab 650 mg PO TID 06/13/21 12/08/21 History Tamsulosin [Flomax] 0.4 mg PO HS 06/13/21 12/08/21 History Apixaban [Eliquis] 5 mg PO BID 07/16/21 12/08/21 History Calcium Acetate 667 mg PO W/BRKFST 12/01/21 12/08/21 History Cephalexin [Keflex] 500 mg PO Q6HR 10 Days #40 cap 12/01/21 12/08/21 Rx HYDROcodone/APAP 5-325MG [[place] 1 tab PO Q6HR PRN 3 Days #12 tab 12/01/21 12/08/21 Rx 5-325] Spironolactone 12.5 mg PO DAILY 12/01/21 12/08/21 History calcitrioL [Rocaltrol] 0.25 mcg PO WE@1200 12/01/21 12/08/21 History Nitrofurantoin Macrocrystal 100 mg PO TID 12/07/21 12/08/21 History [Nitrofurantoin] Docusate [Colace] 300 mg PO DAILY 12/08/21 12/08/21 History Ondansetron Odt [Zofran Odt] 4 mg PO Q6H PRN 12/08/21 12/08/21 History Allergies Allergy/AdvReac Type Severity Reaction Status Date / Time No Known Allergies Allergy Verified 12/08/21 10:29 Physical Exam Vitals: Vital Signs Temp Pulse Resp BP Pulse Ox 12/23/21 07:00 84 28 H 96/47 98 12/23/21 06:45 85 31 H 101/50 100 12/23/21 06:30 86 27 H 96/44 100 12/23/21 06:15 86 29 H 101/47 100 12/23/21 06:00 86 28 H 98/50 100 12/23/21 05:45 87 30 H 93/48 100 12/23/21 05:30 87 29 H 94/49 98 12/23/21 05:15 87 33 H 98/54 97 12/23/21 05:00 87 34 H 100/52 98 12/23/21 04:45 87 31 H 101/52 100 12/23/21 04:30 85 28 H 98/52 100 12/23/21 04:15 86 31 H 108/52 100 12/23/21 04:00 98.7 F 87 28 H 108/52 100 12/23/21 03:45 86 27 H 99/51 100 12/23/21 03:30 85 29 H 99/51 100 12/23/21 03:15 85 28 H 98/49 100 12/23/21 03:00 85 28 H 100/51 100 12/23/21 02:45 86 27 H 102/48 100 12/23/21 02:30 85 28 H 102/48 100 12/23/21 02:15 85 26 H 123/53 99 12/23/21 02:00 85 26 H 92/49 97 12/23/21 01:45 82 28 H 103/51 97 12/23/21 01:30 82 28 H 107/48 97 12/23/21 01:15 82 28 H 102/50 97 12/23/21 01:00 82 30 H 101/51 96 12/23/21 00:45 83 26 H 107/50 97 12/23/21 00:30 84 27 H 99/49 97 12/23/21 00:15 85 27 H 98/49 96 12/23/21 00:00 99.1 F 90 29 H 100/49 97 03/23/22 23:45 89 28 H 108/50 97 03/23/22 23:30 84 28 H 98/49 97 03/23/22 23:15 85 28 H 100/51 97 03/23/22 23:00 85 29 H 95/49 97 /23/22 22:45 80 27 H 82/41 97 03/23/22 22:30 79 30 H 93/46 97 03/23/22 22:15 79 27 H 91/48 97 03/23/22 22:00 80 29 H 89/56 97 03/23/22 21:45 78 28 H 90/48 97 03/23/22 21:30 79 27 H 90/49 97 03/23/22 21:15 79 29 H 90/48 97 /23/22 21:00 79 27 H 92/48 97 /23/22 20:45 78 27 H 90/58 97 /23/22 20:30 77 26 H 95/50 97 23/22 20:15 77 26 H 95/49 97 23/22 20:00 98.7 F 76 28 H 93/48 97 23/22 18:00 74 33 H 107/51 96 /23/22 17:45 73 25 H 111/55 96 23/22 17:30 73 26 H 97/49 96 23/22 17:15 78 27 H 136/67 96 23/22 17:00 73 29 H 126/67 95 /23/22 16:45 73 27 H 84/43 95 23/22 16:30 69 26 H 112/50 96 23/22 16:15 68 24 113/49 96 /23/22 16:00 97.9 F 69 26 H 104/53 96 03/23/22 15:45 71 24 109/50 96 /23/22 15:30 70 25 H 106/50 96 /23/22 15:15 71 25 H 109/48 96 23/22 15:00 71 26 H 111/52 96 /23/22 14:45 71 22 109/50 96 /23/22 14:30 72 24 113/56 95 /23/22 14:15 71 24 119/51 95 23/22 14:00 77 31 H 115/49 93 L 03/23/22 13:45 70 23 117/50 92 L 12/22/21 13:30 70 23 116/62 95 12/22/21 13:15 70 24 117/51 95 12/22/21 13:00 70 24 117/52 95 12/22/21 12:45 71 23 108/51 94 L 12/22/21 12:30 70 25 H 119/52 94 L 12/22/21 12:15 68 24 148/59 94 L 12/22/21 12:00 98.3 F 75 27 H 108/48 92 L 12/22/21 11:45 68 23 110/52 93 L 12/22/21 11:30 67 25 H 109/63 93 L 12/22/21 11:15 67 25 H 107/50 93 L Intake and Output 12/22/21 12/23/21 12/23/21 22:59 06:59 14:59 Intake Total 1132.293 986.462 508.959 Output Total 389 480 140 Balance 743.293 506.462 368.959 Intake: IV 420 160 190 Cefepime 2 gm In Sodium 50 Chloride 0.9% 100 ml @ 25 mls/hr IVPB Q12HR [facility] Rx #:[id number] Dextrose 5% in Water 1, 100 000 ml @ 50 mls/hr IV . Q23H [facility] with Sodium Bicarb (1 Meq/ml) 150 ml Rx#:[id number] Sodium Chloride 0.9% 1, 120 160 40 000 ml @ 20 mls/hr IV . Q24H [facility] Rx#:[id number] Sodium Phosphate 9 mmol 300 Sodium Acetate 20 meq Potassium Acetate 40 meq Magnesium Sulfate Syg 4. 06 meq Calcium Gluconate 1 gm In Amino Acids 5 %/ Dextrose 20 % 1,000 ml @ 75 mls/hr IV .BY DURATION [facility] Rx#:[id number] Intake, IV Titration 642.293 626.462 248.959 Amount DOBUTamine DRIP 500 mg In 185.768 64.232 Dextrose/Water 1 250ml. bag @ 2.5 MCG/KG/MIN 6. 975 mls/hr IV .Q24H [facility] Rx#:[id number] Norepinephrine 32 mg In 80.337 262.230 164.931 Sodium Chloride 0.9% 218 ml @ 0.05 MCG/KG/MIN 2.18 mls/hr IV .Q24H [facility] Rx#: [id number] Norepinephrine 8 mg In 200.188 Sodium Chloride 0.9% 250 ml @ 0.05 MCG/KG/MIN 9. 385 mls/hr IV .Q24H [facility] Rx#:[id number] propofoL 1,000 mg In 176 300.000 84.028 Empty Bag 1 bag @ 5 MCG/ KG/MIN 2.85 mls/hr IV . Q24H [facility] Rx#:[id number] Tube Feeding 40 140 40 Other 30 60 30 Output: Urine 339 420 140 Stool 50 60 Other: Voiding Method Indwelling Catheter Indwelling Catheter Weight 93 kg 93.4 kg ABP, PAP, CO, CI - Last 8 Hours Arterial Blood Pressure 122/41 Arterial Blood Pressure 82/34 Arterial Blood Pressure 100/38 Arterial Blood Pressure 90/35 Arterial Blood Pressure 94/35 Arterial Blood Pressure 92/35 Arterial Blood Pressure 91/36 Arterial Blood Pressure 92/35 Arterial Blood Pressure 90/34 Arterial Blood Pressure 97/34 Arterial Blood Pressure 93/34 Arterial Blood Pressure 93/33 Arterial Blood Pressure 92/34 Arterial Blood Pressure 95/33 Arterial Blood Pressure 91/33 Arterial Blood Pressure 93/33 Patient is comfortable intubated and sedated. Examination of the heart S1 and S2 Examination lungs bilateral breath sounds are heard Abdomen is soft distended Examination lower extremity shows edema 2+ bilaterally upper and lower extremities. Results - Lab Results Most recent lab results ABG pH 7.28 (7.35-7.45) L 12/23/21 05:51 ABG pCO2 38 mmHg (35-45) 12/23/21 05:51 ABG pO2 137 mmHg (83-108) H 12/23/21 05:51 ABG HCO3 18 mmol/L (21-25) L 12/23/21 05:51 ABG O2 Saturation 98.6 % (94-97) H 12/23/21 05:51 Calcium 7.3 mg/dL (8.4-10.2) L 12/23/21 04:18 Phosphorus 6.7 mg/dL (2.5-4.5) H 12/23/21 04:18 Magnesium 2.2 mg/dL (1.6-2.3) 12/23/21 04:18 12/23/21 04:18 12/23/21 04:18 Assessment and Plan Assessment: 1. Acute kidney injury ATN currently oliguric secondary to hypotension and sepsis 2. Urinary tract infection with urine culture growing Pseudomonas 3. C. diff colitis postoperatively 4. Metabolic acidosis associated with acute kidney injury, non-gap, started on bicarb drip 5. Volume overload 6. CHF acute on top of chronic mostly systolic currently maintained on dobutamine 7. Bowel obstruction status post explorative laparotomy, lysis of irritations, repair of buried stomal hernia and bowel resection on 12/09/2021 8. Chronic kidney disease NKF stage IV with previous creatinine 1.9-2 mg/dL 9. History of colon cancer with previous history of colectomy and colostomy Plan: Continue with dobutamine Add Lasix drip May continue with the bicarb drip for now If patient's urine output does not order picker we will need to consider renal replacement therapy however patient is critically ill and significantly hypotensive and he may not tolerate hemodialysis. CODE STATUS needs to be discussed further. If family wishes to proceed with aggressive care we will consider sled therapy
[2021-12-23 11:22] LABS: INR 1.1 (<1.2); Partial Thromboplastin Time 27.1 sec (22.0-30.0)
--- NOTE | 2021-12-23 11:26 | P.PN ---
Subjective Progress Note Date: 12/23/21 Principal diagnosis: Status post exploratory laparotomy, lysis of adhesions, repair of peristomal hernia, small bowel resection on 12/09/2021. On 12/20/2021 patient seen in follow-up in intensive care unit, he is awake and alert, appears to be tachypneic, short of breath at rest, and with any conversation. He is on 4 L of oxygen with a pulse ox of 91%, and subsequently his flow was increased to 5 L in view of worsening dyspnea, patient is postoperative day #11, status post exploratory laparotomy, lysis of adhesions, repair of parastomal hernia, small bowel resection on 12/09/2021. His NG tube has been discontinued however patient is having somewhat of a hard time swallo wing, he is coughing at times, bringing up some yellowish colored phlegm, his Zosyn was discontinued, his colostomy is producing liquid brown stool. Patient was afebrile overnight, but generally he appears to be quite significantly fluid overloaded, he remains on Lasix 40 mg twice daily. He was in positive 1500 mL net fluid balance over the last 24 hours. His chest x-ray today showing hypoventilatory changes and patchy airspace disease at the periphery of the right base and at the retrocardiac region at the left base. The possibility of infectious etiology is being considered. No fever or chills overnight. His abdominal incision is draining moderate amount of serous output, midportion of the incision is packed with silver ion packing. Generally patient has significant anasarca, third spacing and received 4 doses of 25% albumin. Today's labs have been reviewed, with blood cell count is elevated but improved and is down to 25.7, hemoglobin is 10.3, sodium is 135, potassium is 4.5, chloride is 107, CO2 is 19, B1 is 65, creatinine is 1.93. LFTs are improved. On 12/21/2021 patient seen in follow-up in the intensive care unit. Still quite dyspneic, tachypneic, he was placed on CPAP support today with a pressure of 10 cm of water, and FiO2 currently is at 60%. His pulse ox is 96%, tolerating CPAP support well, still tachypneic, he is achieving tidal volumes of 799, his res piratory rate is 25-33, minute ventilation is 28 L/m. Remains on Lasix of 40 mg every 8 hours. She was started on Dobutrex at 2.5 mics per kilo per minute. Patient is again in +2 L net fluid balance over the last 24 hours. He has generalized edema in his upper and lower extremities, torso. Urine output is a new order off 85-100 ML per hour. Patient continues on TPN at 75 ML per hour. Today's chest x-ray showing cardiomegaly with left greater than right increasing opacities suggesting worsening pulmonary edema and/or infiltrate. Patient remains on Zosyn, his urine culture was positive for pseudomonas. Afebrile overnight. His blood pressures are marginal, was systolic in the 70s and 80s and occasionally in the 90s, with diastolic in the 50s and the mean of 55-65. Abdomen is nontender, his colostomy is producing some liquid stool, he remains on oral vancomycin for C. diff colitis. A total of 200 mL in liquid output from his colostomy in the last 24 hours. Today's labs have been reviewed, there is improvement in his white blood cell count which is down to 15.6, hemoglobin is 8.2, platelet count is 231, sodium is 137, potassium is 4.4, chloride is 108, CO2 is 21, BUN is 77, creatinine is 2.4 200 today's labs. Reevaluated today on 12/22/2021, patient has been gradually getting worse over the last 24 hours, last night the patient was developing more agitation, and he was on BiPAP at one point, later transitioned to a nonrebreather mask, O2 saturations remained marginal. Patient was placed on Precedex for his agitation, and when I evaluated the patient this morning, patient seemed to be in worsening respiratory distress. ABG was marginal at best. On a nonrebreath er mask, his pO2 was only 61 pCO2 34 pH of 7.40. Patient was noted to be tachypneic tachycardic, and extremely agitated. Chest x-ray showed evidence of worsening increased lung markings and pulmonary vasculature markings suggestive of pulmonary edema, underlying pneumonia is not entirely ruled out. Patient has been diuresing well and his renal functioning has been getting a bit worse. He has been receiving Lasix 40 mg IV push every 8 hours and is also on Dobutrex at 5 mcg/kg/m. Blood pressure has been marginal and he required placement on norepinephrine this morning. Yesterday I made the family aware including his and his son about his condition, and I explained to them that he may end up requiring intubation and mechanical ventilation. Indeed this morning the patient clearly needs to be intubated and mechanically ventilated, and my clinical judgment was to proceed with intubating the patient and placing the patient on mechanical ventilation in the meantime continue hemodynamic support, continue antibiotics, continue inotropic support, echocardiogram which was ordered by cardiology is pending this morning. Post intubation his ABG showed a pO2 of 190 pCO2 42 pH of 7.31, hence the patient was placed on FiO2 of 50%, tidal volume is 450 rate of 22 and PEEP of 5. CBC today showed WBC of 10.1 hemoglobin is 8 and platelets 181,000. Medication [place] patient remains on Tyl enol, amiodarone orally twice a day, Lipitor, Peridex, Pepcid, dobutamine which I cut down to 2.5 mcg/kg/m, Pepcid, TPN, Proscar, Lasix 40 mg cut down from 3 times a day to once daily patient is now on propofol drip and he is also on Dilaudid when necessary remains on Zosyn and he is requiring norepinephrine for marginal low blood pressure. Patient was reevaluated today on 12/23/2021, remains in the ICU, remains critically ill, patient required intubation and mechanical ventilation yesterday. He is now on tidal volume of 450 assist control rate of 22 FiO2 50% I cut it down to 45% and his PEEP is at 5. ABG this morning showed a pO2 of 137 pCO2 of 38 pH of 7.28, hence I started the patient today on a bicarb drip. At 50 mL per hour. I cut down his FiO2 to 45%. Patient is requiring more pressors he is basically maximized on norepinephrine at 1 mcg/kg/m, he is on Dobutrex at 5 mcg/kg/m receiving vasopressin at 0.03 units per minutes. Blood pressure remains marginal. Patient remains quite edematous and he seems to be third spacing with significant edema in upper and lower extremities. Chest x-ray continues showed bilateral interstitial edema/infiltrates. Not much of a knife changer the last 24 hours. Although his oxygenation is improving. Patient is still receiving antibiotics in the form of Zosyn, day considering the patient had only one urine culture that showed pseudomonas, I added cefepime at the patient seems to be septic and he is developing what looks like a septic shock. Blood cultures were ordered. Patient remains on oral vancomycin for C. difficile colitis. And he is on vital AF at 20 mL per hour. His ostomy seems to be functioning well. Objective - Vital Signs Vital signs: Vital Signs Temp 98.7 F 12/23/21 04:00 Pulse 84 12/23/21 07:00 Resp 28 H 12/23/21 07:00 BP 96/47 12/23/21 07:00 Pulse Ox 98 12/23/21 07:00 Intake & Output 12/22/21 12/23/21 12/23/21 18:59 06:59 18:59 Intake Total 1232.523 2989.567 508.959 Output Total 622 715 140 Balance 987.333 763.567 368.959 Weight 93 kg 93.4 kg Intake: IV 1020 240 190 Cefepime 2 gm In Sodium 50 Chloride 0.9% 100 ml @ 25 mls/hr IVPB Q12HR [facility] Rx #:[id number] Dextrose 5% in Water 1, 100 000 ml @ 50 mls/hr IV . Q23H [facility] with Sodium Bicarb (1 Meq/ml) 150 ml Rx#:[id number] Sodium Chloride 0.9% 1, 120 240 40 000 ml @ 20 mls/hr IV . Q24H [facility] Rx#:[id number] Sodium Phosphate 9 mmol 900 Sodium Acetate 20 meq Potassium Acetate 40 meq Magnesium Sulfate Syg 4. 06 meq Calcium Gluconate 1 gm In Amino Acids 5 %/ Dextrose 20 % 1,000 ml @ 75 mls/hr IV .BY DURATION [facility] Rx#:[id number] Intake, IV Titration 589.333 968.567 248.959 Amount DOBUTamine DRIP 500 mg In 186.062 250.000 Dextrose/Water 1 250ml. bag @ 2.5 MCG/KG/MIN 6. 975 mls/hr IV .Q24H [facility] Rx#:[id number] Dexmedetomidine/0.9% NaCl 12.323 (Pmx) 400 mcg In Empty Bag 1 bag @ 0.2 MCG/KG/HR 4.65 mls/hr IV .[id number] [facility] Rx#:[id number] Norepinephrine 32 mg In 342.567 164.931 Sodium Chloride 0.9% 218 ml @ 0.05 MCG/KG/MIN 2.18 mls/hr IV .Q24H [facility] Rx#: [id number] Norepinephrine 8 mg In 228.343 Sodium Chloride 0.9% 250 ml @ 0.05 MCG/KG/MIN 9. 385 mls/hr IV .Q24H [facility] Rx#:[id number] propofoL 1,000 mg In 162.605 376.000 84.028 Empty Bag 1 bag @ 5 MCG/ KG/MIN 2.85 mls/hr IV . Q24H [facility] Rx#:[id number] Tube Feeding 180 40 Other 90 30 Output: Urine 622 605 140 Stool 110 Other: Voiding Method Indwelling Catheter Indwelling Catheter ABP, PAP, CO, CI - Last Documented Arterial Blood Pressure 122/41 - Exam GENERAL EXAM: Revealed 80-year-old white male, intubated, sedated, he is presently on upper fall at 45 mcg/kg/m. And he is on multiple pressors. HEAD: Normocephalic/atraumatic. EYES: Normal reaction of pupils, equal size. Conjunctiva pink, sclera white. NOSE: Clear with pink turbinates. THROAT: Evidence of thick dry secretions noted in the oropharynx. NECK: Supple, no neck masses no JVD. CHEST: Symmetrical chest expansion noted deformity. LUNGS: Crackles at the bases. CVS: Distant S1 and S2, no S3 gallop, 2/6 systolic murmur thought the precordium. ABDOMEN: Soft, nontender. No hepatosplenomegaly, normal bowel sounds, no gua rding or rigidity. Midabdominal incision is draining moderate to large amount of serous output, shant are in place, colostomy seems to be functional. EXTREMITIES: No clubbing, no edema, no cyanosis. MUSCULOSKELETAL: No deformities. Could not assess motion. SKIN: No rashes CENTRAL NERVOUS SYSTEM: Could not assess, patient is sedated. PSYCHIATRIC: Could not assess. - Labs CBC & Chem 7: 12/23/21 04:18 12/23/21 04:18 Labs: Abnormal Lab Results - Last 24 Hours (Table) 12/22/21 12/22/21 12/22/21 Range/Units 04:32 11:26 18:00 WBC (3.8-10.6) k/uL RBC (4.30-5.90) m/uL Hgb (13.0-17.5) gm/dL Hct (39.0-53.0) % Neutrophils # 9.1 H (1.3-7.7) k/uL Lymphocytes # 0.3 L (1.0-4.8) k/uL Eosinophils # (0-0.7) k/uL ABG pH (7.35-7.45) ABG pO2 (83-108) mmHg ABG HCO3 (21-25) mmol/L ABG O2 Saturation (94-97) % Chloride (98-107) mmol/L Carbon Dioxide (22-30) mmol/L BUN (9-20) mg/dL Creatinine (0.66-1.25) mg/dL Glucose (74-99) mg/dL POC Glucose (mg/dL) 203 H 146 H (75-99) mg/dL Calcium (8.4-10.2) mg/dL Phosphorus (2.5-4.5) mg/dL ALT (4-49) U/L Alkaline Phosphatase (38-126) U/L Total Protein (6.3-8.2) g/dL Albumin (3.5-5.0) g/dL 12/22/21 12/22/21 12/23/21 Range/Units 21:20 23:53 04:18 WBC (3.8-10.6) k/uL RBC (4.30-5.90) m/uL Hgb (13.0-17.5) gm/dL Hct (39.0-53.0) % Neutrophils # (1.3-7.7) k/uL Lymphocytes # (1.0-4.8) k/uL Eosinophils # (0-0.7) k/uL ABG pH (7.35-7.45) ABG pO2 (83-108) mmHg ABG HCO3 (21-25) mmol/L ABG O2 Saturation (94-97) % Chloride 112 H (98-107) mmol/L Carbon Dioxide 19 L (22-30) mmol/L BUN 88 H (9-20) mg/dL Creatinine 3.05 H (0.66-1.25) mg/dL Glucose 108 H (74-99) mg/dL POC Glucose (mg/dL) 111 H 104 H (75-99) mg/dL Calcium 7.3 L (8.4-10.2) mg/dL Phosphorus 6.7 H (2.5-4.5) mg/dL ALT 61 H (4-49) U/L Alkaline Phosphatase 152 H (38-126) U/L Total Protein 4.6 L (6.3-8.2) g/dL Albumin 2.1 L (3.5-5.0) g/dL 12/23/21 12/23/21 Range/Units 04:18 05:51 WBC 19.1 H (3.8-10.6) k/uL RBC 3.04 L (4.30-5.90) m/uL Hgb 9.3 L (13.0-17.5) gm/dL Hct 30.1 L (39.0-53.0) % Neutrophils # 16.7 H (1.3-7.7) k/uL Lymphocytes # 0.7 L (1.0-4.8) k/uL Eosinophils # 1.1 H (0-0.7) k/uL ABG pH 7.28 L (7.35-7.45) ABG pO2 137 H (83-108) mmHg ABG HCO3 18 L (21-25) mmol/L ABG O2 Saturation 98.6 H (94-97) % Chloride (98-107) mmol/L Carbon Dioxide (22-30) mmol/L BUN (9-20) mg/dL Creatinine (0.66-1.25) mg/dL Glucose (74-99) mg/dL POC Glucose (mg/dL) (75-99) mg/dL Calcium (8.4-10.2) mg/dL Phosphorus (2.5-4.5) mg/dL ALT (4-49) U/L Alkaline Phosphatase (38-126) U/L Total Protein (6.3-8.2) g/dL Albumin (3.5-5.0) g/dL Assessment and Plan Assessment: Impression: Acute hypoxic respiratory failure, multifactorial requiring intubation and mechanical ventilation on 12/22/2021. Mostly related to acute on chronic systolic congestive heart failure and aspiration pneumonia is strongly suspected. Considering the patient is requiring significant amount of pressors, I'm also suspecting that we may be dealing with sepsis and septic shock. Status post exploratory laparotomy, lysis of adhesions, repair of peristomal hernia, bowel resection on 12/09/2021. Postoperative day #13 Acute urinary tract infection secondary to pseudomonas aeruginosa and history of right sided hydronephrosis. Patient has been on Zosyn all along, today I added cefepime. And blood cultures were ordered. C. difficile colitis, on oral vancomycin. Suspect sepsis and septic shock. Ischemic cardiomyopathy and LV dysfunction history of AICD placement and ablation for ventricular tachycardia. Asked ejection fraction was noted to be 45%. Cholelithiasis. Acute on chronic kidney injury, secondary to sepsis and septic shock. Seems to be worsening hence I recommended nephrology consultation. History of coronary artery disease and previous stent placement History of nonsustained ventricular tachycardia and review his ablation as well as AICD placement History of obstructive sleep apnea syndrome Benign essential hypertension History of colon cancer with previous colectomy and colostomy History of deep vein thrombosis Paroxysmal atrial fibrillation Hypoalbuminemia/hypoproteinemia. Recommendation: Continue ventilatory support, FiO2 is down to 45%. And PEEP remains the same. Continue norepinephrine and I added vasopressin. Continue dobutamine. Consult nephrology for his worsening renal status. Start patient on sodium bicarb drip for worsening metabolic acidosis. And that is multifactorial. Continue antibiotics/Zosyn, added cefepime today for his Pseudomonas infection and worsening septic picture. Continue TPN. Nutritional support. Continue GI and DVT prophylaxis. Continue to monitor renal status Continue diuretics Lasix 40 mg IV push twice a day. Discussed his condition with cardiology on the case. Patient is critically ill. And critical care time is over 30 minutes. Overall prognosis remains extremely poor and guarded. We will continue to follow. Time with Patient: Greater than 30
[2021-12-23 11:34] LABS: Glucose,Whole Blood 111 mg/dL (75-99)
--- NOTE | 2021-12-23 11:57 | P.PN ---
Subjective Progress Note Date: 12/23/21 CHIEF COMPLAINT: Small bowel ejection HISTORY OF PRESENT ILLNESS: Patient is in the ICU and on mechanical ventilation. Patient has been hypotensive requiring Levophed, vasopressor and is also on dobutamine. He has extensive generalized edema. White count did go up to 19.1 hemoglobin is 9.3 he did have a temp of 100.2 this morning. Patient had 100 mL of brown stool through his ostomy. No blood reported in stool. Chest x-ray improving lung infiltrates. Patient is postop day #14 status post exploratory laparotomy, lysis of extensive adhesions, repair of parastomal hernia and small bowel resection for small bowel obstruction due to parastomal hernia and adhesions. Patient being seen by nephrology for acute kidney injury. Creatinine 3.05 with decreased urine output.. They have added Lasix drip. Patient seen and examined with Dr. velarde PHYSICAL EXAM: VITAL SIGNS: Reviewed. GENERAL: Intubated HEENT: No sclera icterus. Extraocular movements grossly intact. Moist buccal mucosa. Head is atraumatic, normocephalic. ABDOMEN: Soft. Nondistended. Serous drainage noted from incision. Does have one Aquacel Silver wick at the top of the incision. Ostomy functioning with brown stool. ASSESSMENT: 1. 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 Left hydronephrosis secondary to left ureteral stricture status post cystoscopy with left ureteroscopy balloon dilatation of the left distal ureteral stricture and left ureteral stent insertion by Dr. Cool 3. Sustained ventricle tachycardia 4. Distended gallbladder with cholelithiasis 5. Possible postoperative ileus 6. Leukocytosis 7. GI bleeding with blood noted in stool in ostomy bag likely secondary to the anticoagulation. Now resolved 8. Severe protein calorie malnutrition 9. History of atrial fibrillation 10. C. diff colitis PLAN: -Continue ICU management -Continue supportive care -Antibiotics per ID -Continue TPN for nutrition support -DVT prophylaxis subcu heparin Physician [employer] Captain M[employer] Analysis note has been reviewed by physician. Signing provider agrees with the documented findings, assessment, and plan of care. Objective - Vital Signs Vital signs: Vital Signs Temp 100.2 F H 12/23/21 08:00 Pulse 84 12/23/21 11:30 Resp 31 H 12/23/21 11:30 BP 125/61 12/23/21 11:30 Pulse Ox 97 12/23/21 11:30 Intake & Output 12/22/21 12/23/21 12/23/21 18:59 06:59 18:59 Intake Total 0315.936 7372.567 508.959 Output Total 622 715 140 Balance 987.333 763.567 368.959 Weight 93 kg 93.4 kg Intake: IV 1020 240 190 Cefepime 2 gm In Sodium 50 Chloride 0.9% 100 ml @ 25 mls/hr IVPB Q12HR [facility] Rx #:[id number] Dextrose 5% in Water 1, 100 000 ml @ 50 mls/hr IV . Q23H [facility] with Sodium Bicarb (1 Meq/ml) 150 ml Rx#:[id number] Sodium Chloride 0.9% 1, 120 240 40 000 ml @ 20 mls/hr IV . Q24H [facility] Rx#:[id number] Sodium Phosphate 9 mmol 900 Sodium Acetate 20 meq Potassium Acetate 40 meq Magnesium Sulfate Syg 4. 06 meq Calcium Gluconate 1 gm In Amino Acids 5 %/ Dextrose 20 % 1,000 ml @ 75 mls/hr IV .BY DURATION [facility] Rx#:[id number] Intake, IV Titration 589.333 968.567 248.959 Amount DOBUTamine DRIP 500 mg In 186.062 250.000 Dextrose/Water 1 250ml. bag @ 2.5 MCG/KG/MIN 6. 975 mls/hr IV .Q24H [facility] Rx#:[id number] Dexmedetomidine/0.9% NaCl 12.323 (Pmx) 400 mcg In Empty Bag 1 bag @ 0.2 MCG/KG/HR 4.65 mls/hr IV .[id number] [facility] Rx#:[id number] Norepinephrine 32 mg In 342.567 164.931 Sodium Chloride 0.9% 218 ml @ 0.05 MCG/KG/MIN 2.18 mls/hr IV .Q24H [facility] Rx#: [id number] Norepinephrine 8 mg In 228.343 Sodium Chloride 0.9% 250 ml @ 0.05 MCG/KG/MIN 9. 385 mls/hr IV .Q24H [facility] Rx#:[id number] propofoL 1,000 mg In 162.605 376.000 84.028 Empty Bag 1 bag @ 5 MCG/ KG/MIN 2.85 mls/hr IV . Q24H [facility] Rx#:[id number] Tube Feeding 180 40 Other 90 30 Output: Urine 622 605 140 Stool 110 Other: Voiding Method Indwelling Catheter Indwelling Catheter ABP, PAP, CO, CI - Last Documented Arterial Blood Pressure 110/43 - Labs CBC & Chem 7: 12/23/21 04:18 12/23/21 04:18 Labs: Abnormal Lab Results - Last 24 Hours (Table) 12/22/21 12/22/21 12/22/21 Range/Units 04:32 18:00 21:20 WBC (3.8-10.6) k/uL RBC (4.30-5.90) m/uL Hgb (13.0-17.5) gm/dL Hct (39.0-53.0) % Neutrophils # 9.1 H (1.3-7.7) k/uL Lymphocytes # 0.3 L (1.0-4.8) k/uL Eosinophils # (0-0.7) k/uL ABG pH (7.35-7.45) ABG pO2 (83-108) mmHg ABG HCO3 (21-25) mmol/L ABG O2 Saturation (94-97) % Chloride (98-107) mmol/L Carbon Dioxide (22-30) mmol/L BUN (9-20) mg/dL Creatinine (0.66-1.25) mg/dL Glucose (74-99) mg/dL POC Glucose (mg/dL) 146 H 111 H (75-99) mg/dL Calcium (8.4-10.2) mg/dL Phosphorus (2.5-4.5) mg/dL ALT (4-49) U/L Alkaline Phosphatase (38-126) U/L Total Protein (6.3-8.2) g/dL Albumin (3.5-5.0) g/dL 12/22/21 12/23/21 12/23/21 Range/Units 23:53 04:18 04:18 WBC 19.1 H (3.8-10.6) k/uL RBC 3.04 L (4.30-5.90) m/uL Hgb 9.3 L (13.0-17.5) gm/dL Hct 30.1 L (39.0-53.0) % Neutrophils # 16.7 H (1.3-7.7) k/uL Lymphocytes # 0.7 L (1.0-4.8) k/uL Eosinophils # 1.1 H (0-0.7) k/uL ABG pH (7.35-7.45) ABG pO2 (83-108) mmHg ABG HCO3 (21-25) mmol/L ABG O2 Saturation (94-97) % Chloride 112 H (98-107) mmol/L Carbon Dioxide 19 L (22-30) mmol/L BUN 88 H (9-20) mg/dL Creatinine 3.05 H (0.66-1.25) mg/dL Glucose 108 H (74-99) mg/dL POC Glucose (mg/dL) 104 H (75-99) mg/dL Calcium 7.3 L (8.4-10.2) mg/dL Phosphorus 6.7 H (2.5-4.5) mg/dL ALT 61 H (4-49) U/L Alkaline Phosphatase 152 H (38-126) U/L Total Protein 4.6 L (6.3-8.2) g/dL Albumin 2.1 L (3.5-5.0) g/dL 12/23/21 12/23/21 Range/Units 05:51 11:34 WBC (3.8-10.6) k/uL RBC (4.30-5.90) m/uL Hgb (13.0-17.5) gm/dL Hct (39.0-53.0) % Neutrophils # (1.3-7.7) k/uL Lymphocytes # (1.0-4.8) k/uL Eosinophils # (0-0.7) k/uL ABG pH 7.28 L (7.35-7.45) ABG pO2 137 H (83-108) mmHg ABG HCO3 18 L (21-25) mmol/L ABG O2 Saturation 98.6 H (94-97) % Chloride (98-107) mmol/L Carbon Dioxide (22-30) mmol/L BUN (9-20) mg/dL Creatinine (0.66-1.25) mg/dL Glucose (74-99) mg/dL POC Glucose (mg/dL) 111 H (75-99) mg/dL Calcium (8.4-10.2) mg/dL Phosphorus (2.5-4.5) mg/dL ALT (4-49) U/L Alkaline Phosphatase (38-126) U/L Total Protein (6.3-8.2) g/dL Albumin (3.5-5.0) g/dL
[2021-12-23] MEDS: FUROSEMIDE 100 MG in SODIUM CHLORIDE 0.9% 90 ML IV SCH ×2 (12:41→22:31)
[2021-12-23] MEDS ORDERED: PIPERACILLIN-TAZOBACTAM 3.375 GM in SODIUM CHLORIDE 0.9% 100 ML IVPB SCH (14:00)
[2021-12-23] MEDS: HYDROCORTISONE SUCCINATE 100 MG/2 ML VIAL IV SCH (15:05)
[2021-12-23] MEDS: metroNIDAZOLE-NS PMX 500 MG in SALINE 1 100ML.BAG IVPB SCH (15:06)
[2021-12-23] MEDS: HEPARIN SODIUM,PORCINE/PF 5,000 UNIT/0.5 ML SYRINGE SQ SCH (15:06)
[2021-12-23 17:10] LABS: Glucose,Whole Blood 158 mg/dL (75-99)
[2021-12-23 19:40] LABS: Calcium 7.1 mg/dL (8.4-10.2); Potassium 5.7 mmol/L (3.5-5.1)
[2021-12-23] MEDS: TAMSULOSIN 0.4 MG CAP.ER.24H PO SCH (20:19)
[2021-12-23] MEDS: ATORVASTATIN 40 MG TAB PO SCH (20:23)
[2021-12-23] MEDS: INSULIN DETEMIR (LEVEMIR) 100 UNIT/ML SYR SQ SCH (20:23)
[2021-12-23] MEDS ORDERED: INSULIN REGULAR 100 UNIT/ML VIAL (IV) IV ONE (22:19)
[2021-12-23] MEDS ORDERED: DEXTROSE 50% SYRINGE 50 ML IVP ONE (22:19)
--- NOTE | 2021-12-23 22:22 | P.CONS ---
History of Present Illness - Reason for Consult Consult date: 12/23/21 Sepsis C. diff and recent antibiotic use Requesting physician: Aparna Cee - Chief Complaint Respiratory status and weakness x few days - History of Present Illness Patient is 80-year male presenting to the hospital 15 days ago for evaluation of nausea and vomiting symptom has been going on for about a week before presentation to the hospital patient did have a CT of abdominal pelvis completed on admission did shows acute high-grade mechanical small bowel obstruction significant wall thickening of the colon just proximal to the colostomy with surrounding acute inflammatory changes underlying colitis or diverticulitis cannot be excluded left distal ureteric obstruction patient has been followed by general surgery and urology and the patient was taken to the OR on 12/09/2021 patient did have cystoscopy with left ureteroscopy balloon dilatation of left distal ureteral stricture and left ureteral stent placement patient also have exploratory laparotomy lysis of extensive adhesions repair of the parastomal hernia and small bowel resection, patient has been in the ICU repeat CAT scan was done on December 13, 2021 with a left lower quadrant parastomal hernia redemonstrated diffusely dilated proximal and mid small bowel measuring up to 6.4 cm continue foci of free air in the right upper quadrant generalized anasarca, patient did spike a fever on December 12 and was afebrile afterwards and did have low-grade fever 100.2 this morning patient did have worsening of respiratory status requiring intubation however no significant purulent secretion through the ED reported by nursing staff patient is currently on max pressor support he did have a worsening of his kidney function white count which normalized yesterday to 10.1 is up to 19.1 today patient did have a blood culture on admission which were negative urine was Pseudomonas aeruginosa and the patient has completed course of Zosyn patient also developed C. difficile colitis with a positive for C. difficile on 12/17/2021 and has been treated with oral vancomycin, today because of his worsening hemodynamic instability patient has been started on Zosyn and cefepime infectious disease was consulted for further management of antibiotic therapy most of the information has been obtained from review of his chart and talking to nursing staff the patient is currently intubated on the vent and is unable to provide any history Review of Systems Positive points has been mentioned in HPI complete review could not be obtained because of his underlying mental status Past Medical History Past Medical History: Coronary Artery Disease (CAD), Cancer, COPD, Deep Vein Thrombosis (DVT), Hyperlipidemia, Hypertension, Osteoarthritis (OA), Sleep Apnea/CPAP/BIPAP Additional Past Medical History / Comment(s): colon cancer, SKIN CANCER, colostomy, vertigo, kidney stones, states very nauseated currently, DVT 03/2021 left leg, not using CPAP, currently on Rx for UTI Last Myocardial Infarction Date:: 03/2021 History of Any Multi-Drug Resistant Organisms: None Reported Past Surgical History: Adenoidectomy, AICD, Bowel Resection, Cardiac Ablation, Heart Catheterization With Stent, Hernia Repair, Pacemaker, Tonsillectomy Additional Past Surgical History / Comment(s): colostomy, two cardiac stents, Past Anesthesia/Blood Transfusion Reactions: No Reported Reaction Additional Past Anesthesia/Blood Transfusion Reaction / Comm: Pt received blood in the past without reaction. Date of Last Stent Placement:: 2020 Type of Cardiac Device: AICD Device Placement Date:: 04/01/2021 Past Psychological History: No Psychological Hx Reported Smoking Status: Never smoker - Past Family History Mother Family Medical History: Cancer Additional Family Medical History / Comment(s): Breast cancer. Father Additional Family Medical History / Comment(s): Valve replacement and pacemaker. Brother(s) Family Medical History: Coronary Artery Disease (CAD) Additional Family Medical History / Comment(s): CABG. Medications and Allergies Home Medications Medication Instructions Recorded Confirmed Type Atorvastatin [Lipitor] 40 mg PO HS 05/24/16 12/08/21 History Amiodarone [Cordarone] 200 mg PO BID 06/13/21 12/08/21 History Cholecalciferol [Vitamin D3 (25 50 mcg PO DAILY@1200 06/13/21 12/08/21 History Mcg = 1000 Iu)] Clopidogrel [Plavix] 75 mg PO DAILY 06/13/21 12/08/21 History Finasteride [Proscar] 5 mg PO DAILY 06/13/21 12/08/21 History Metoprolol Tartrate [Lopressor] 12.5 mg PO BID 06/13/21 12/08/21 History Sodium Bicarbonate Tab 650 mg PO TID 06/13/21 12/08/21 History Tamsulosin [Flomax] 0.4 mg PO HS 06/13/21 12/08/21 History Apixaban [Eliquis] 5 mg PO BID 07/16/21 12/08/21 History Calcium Acetate 667 mg PO W/BRKFST 12/01/21 12/08/21 History Cephalexin [Keflex] 500 mg PO Q6HR 10 Days #40 cap 12/01/21 12/08/21 Rx HYDROcodone/APAP 5-325MG [[place]xton 1 tab PO Q6HR PRN 3 Days #12 tab 12/01/21 Rx 5-325] Spironolactone 12.5 mg PO DAILY 12/01/21 12/08/21 History calcitrioL [Rocaltrol] 0.25 mcg PO WE@1200 12/01/21 12/08/21 History Nitrofurantoin Macrocrystal 100 mg PO TID 12/07/21 12/08/21 History [Nitrofurantoin] Docusate [Colace] 300 mg PO DAILY 12/08/21 12/08/21 History Ondansetron Odt [Zofran Odt] 4 mg PO Q6H PRN 12/08/21 12/08/21 History Allergies Allergy/AdvReac Type Severity Reaction Status Date / Time No Known Allergies Allergy Verified 12/08/21 10:29 Physical Exam Vitals: Vital Signs Temp Pulse Resp BP Pulse Ox 12/23/21 07:00 84 28 H 96/47 98 12/23/21 06:45 85 31 H 101/50 100 12/23/21 06:30 86 27 H 96/44 100 12/23/21 06:15 86 29 H 101/47 100 12/23/21 06:00 86 28 H 98/50 100 12/23/21 05:45 87 30 H 93/48 100 12/23/21 05:30 87 29 H 94/49 98 12/23/21 05:15 87 33 H 98/54 97 12/23/21 05:00 87 34 H 100/52 98 12/23/21 04:45 87 31 H 101/52 100 12/23/21 04:30 85 28 H 98/52 100 12/23/21 04:15 86 31 H 108/52 100 12/23/21 04:00 98.7 F 87 28 H 108/52 100 12/23/21 03:45 86 27 H 99/51 100 12/23/21 03:30 85 29 H 99/51 100 12/23/21 03:15 85 28 H 98/49 100 12/23/21 03:00 85 28 H 100/51 100 12/23/21 02:45 86 27 H 102/48 100 12/23/21 02:30 85 28 H 102/48 100 12/23/21 02:15 85 26 H 123/53 99 12/23/21 02:00 85 26 H 92/49 97 12/23/21 01:45 82 28 H 103/51 97 12/23/21 01:30 82 28 H 107/48 97 12/23/21 01:15 82 28 H 102/50 97 12/23/21 01:00 82 30 H 101/51 96 12/23/21 00:45 83 26 H 107/50 97 12/23/21 00:30 84 27 H 99/49 97 12/23/21 00:15 85 27 H 98/49 96 12/23/21 00:00 99.1 F 90 29 H 100/49 97 12/22/21 23:45 89 28 H 108/50 97 12/22/21 23:30 84 28 H 98/49 97 12/22/21 23:15 85 28 H 100/51 97 12/22/21 23:00 85 29 H 95/49 97 2322 22:45 80 27 H 82/41 97 2322 22:30 79 30 H 93/46 97 22 22:15 79 27 H 91/48 97 22 22:00 80 29 H 89/56 97 23/22 21:45 78 28 H 90/48 97 2322 21:30 79 27 H 90/49 97 2322 21:15 79 29 H 90/48 97 2322 21:00 79 27 H 92/48 97 23/22 20:45 78 27 H 90/58 97 2322 20:30 77 26 H 95/50 97 2322 20:15 77 26 H 95/49 97 22 20:00 98.7 F 76 28 H 93/48 97 2322 18:00 74 33 H 107/51 96 23/22 17:45 73 25 H 111/55 96 2322 17:30 73 26 H 97/49 96 03/23/22 17:15 78 27 H 136/67 96 12/22/21 17:00 73 29 H 126/67 95 12/22/21 16:45 73 27 H 84/43 95 12/22/21 16:30 69 26 H 112/50 96 12/22/21 16:15 68 24 113/49 96 12/22/21 16:00 97.9 F 69 26 H 104/53 96 12/22/21 15:45 71 24 109/50 96 12/22/21 15:30 70 25 H 106/50 96 12/22/21 15:15 71 25 H 109/48 96 12/22/21 15:00 71 26 H 111/52 96 12/22/21 14:45 71 22 109/50 96 12/22/21 14:30 72 24 113/56 95 12/22/21 14:15 71 24 119/51 95 12/22/21 14:00 77 31 H 115/49 93 L 12/22/21 13:45 70 23 117/50 92 L 12/22/21 13:30 70 23 116/62 95 12/22/21 13:15 70 24 117/51 95 12/22/21 13:00 70 24 117/52 95 12/22/21 12:45 71 23 108/51 94 L 12/22/21 12:30 70 25 H 119/52 94 L 12/22/21 12:15 68 24 148/59 94 L 12/22/21 12:00 98.3 F 75 27 H 108/48 92 L 12/22/21 11:45 68 23 110/52 93 L 12/22/21 11:30 67 25 H 109/63 93 L 12/22/21 11:15 67 25 H 107/50 93 L 12/22/21 11:00 66 24 114/50 93 L 12/22/21 10:45 65 23 123/51 93 L 12/22/21 10:30 69 26 H 140/60 93 L Intake and Output 12/22/21 12/23/21 12/23/21 22:59 06:59 14:59 Intake Total 1132.293 986.462 348.959 Output Total 389 480 105 Balance 743.293 506.462 243.959 Intake: IV 420 160 30 Sodium Chloride 0.9% 1, 120 160 30 000 ml @ 20 mls/hr IV . Q24H [facility] Rx#:[id number] Sodium Phosphate 9 mmol 300 Sodium Acetate 20 meq Potassium Acetate 40 meq Magnesium Sulfate Syg 4. 06 meq Calcium Gluconate 1 gm In Amino Acids 5 %/ Dextrose 20 % 1,000 ml @ 75 mls/hr IV .BY DURATION [facility] Rx#:[id number] Intake, IV Titration 642.293 626.462 248.959 Amount DOBUTamine DRIP 500 mg In 185.768 64.232 Dextrose/Water 1 250ml. bag @ 2.5 MCG/KG/MIN 6. 975 mls/hr IV .Q24H [facility] Rx#:[id number] Norepinephrine 32 mg In 80.337 262.230 164.931 Sodium Chloride 0.9% 218 ml @ 0.05 MCG/KG/MIN 2.18 mls/hr IV .Q24H [facility] Rx#: [id number] Norepinephrine 8 mg In 200.188 Sodium Chloride 0.9% 250 ml @ 0.05 MCG/KG/MIN 9. 385 mls/hr IV .Q24H [facility] Rx#:[id number] propofoL 1,000 mg In 176 300.000 84.028 Empty Bag 1 bag @ 5 MCG/ KG/MIN 2.85 mls/hr IV . Q24H [facility] Rx#:[id number] Tube Feeding 40 140 40 Other 30 60 30 Output: Urine 339 420 105 Stool 50 60 Other: Voiding Method Indwelling Catheter Indwelling Catheter Weight 93 kg 93.4 kg ABP, PAP, CO, CI - Last 8 Hours Arterial Blood Pressure 122/41 Arterial Blood Pressure 82/34 Arterial Blood Pressure 100/38 Arterial Blood Pressure 90/35 Arterial Blood Pressure 94/35 Arterial Blood Pressure 92/35 Arterial Blood Pressure 91/36 Arterial Blood Pressure 92/35 Arterial Blood Pressure 90/34 Arterial Blood Pressure 97/34 Arterial Blood Pressure 93/34 Arterial Blood Pressure 93/33 Arterial Blood Pressure 92/34 Arterial Blood Pressure 95/33 Arterial Blood Pressure 91/33 Arterial Blood Pressure 93/33 Arterial Blood Pressure 92/32 Arterial Blood Pressure 96/32 Arterial Blood Pressure 85/33 GENERAL DESCRIPTION: An elderly male intubated on the vent. No tachypnea or accessory muscle of respiration use. HEENT: Shows Pallor , no scleral icterus. Oral mucous membrane is dry. Patient is orally intubated NECK: Trachea central, no thyromegaly. LUNGS: Unlabored breathing. Decreased breath sound the bases. No wheeze or crackle. HEART: S1, S2, regular rate and rhythm. No loud murmur ABDOMEN: Soft, mildly distended midline incision open no significant drainage no surrounding redness EXTREMITIES: 2+ edema of feet. SKIN: No rash, no masses palpable. NEUROLOGICAL: The patient is sedated on the vent Results CBC & Chem 7: 12/23/21 04:18 12/23/21 19:11 Labs: Abnormal Lab Results - Last 24 Hours (Table) 12/22/21 12/22/21 12/22/21 Range/Units 04:32 04:32 11:26 WBC (3.8-10.6) k/uL RBC (4.30-5.90) m/uL Hgb (13.0-17.5) gm/dL Hct (39.0-53.0) % Neutrophils # 9.1 H (1.3-7.7) k/uL Lymphocytes # 0.3 L (1.0-4.8) k/uL Eosinophils # (0-0.7) k/uL ABG pH (7.35-7.45) ABG pO2 (83-108) mmHg ABG HCO3 (21-25) mmol/L ABG O2 Saturation (94-97) % Chloride (98-107) mmol/L Carbon Dioxide (22-30) mmol/L BUN (9-20) mg/dL Creatinine (0.66-1.25) mg/dL Glucose (74-99) mg/dL POC Glucose (mg/dL) 203 H (75-99) mg/dL Calcium (8.4-10.2) mg/dL Phosphorus (2.5-4.5) mg/dL ALT (4-49) U/L Alkaline Phosphatase (38-126) U/L Total Protein (6.3-8.2) g/dL Albumin (3.5-5.0) g/dL Prealbumin 5.7 L (18.0-42.0) mg/dL 12/22/21 12/22/21 12/22/21 Range/Units 18:00 21:20 23:53 WBC (3.8-10.6) k/uL RBC (4.30-5.90) m/uL Hgb (13.0-17.5) gm/dL Hct (39.0-53.0) % Neutrophils # (1.3-7.7) k/uL Lymphocytes # (1.0-4.8) k/uL Eosinophils # (0-0.7) k/uL ABG pH (7.35-7.45) ABG pO2 (83-108) mmHg ABG HCO3 (21-25) mmol/L ABG O2 Saturation (94-97) % Chloride (98-107) mmol/L Carbon Dioxide (22-30) mmol/L BUN (9-20) mg/dL Creatinine (0.66-1.25) mg/dL Glucose (74-99) mg/dL POC Glucose (mg/dL) 146 H 111 H 104 H (75-99) mg/dL Calcium (8.4-10.2) mg/dL Phosphorus (2.5-4.5) mg/dL ALT (4-49) U/L Alkaline Phosphatase (38-126) U/L Total Protein (6.3-8.2) g/dL Albumin (3.5-5.0) g/dL Prealbumin (18.0-42.0) mg/dL 12/23/21 12/23/21 12/23/21 Range/Units 04:18 04:18 05:51 WBC 19.1 H (3.8-10.6) k/uL RBC 3.04 L (4.30-5.90) m/uL Hgb 9.3 L (13.0-17.5) gm/dL Hct 30.1 L (39.0-53.0) % Neutrophils # 16.7 H (1.3-7.7) k/uL Lymphocytes # 0.7 L (1.0-4.8) k/uL Eosinophils # 1.1 H (0-0.7) k/uL ABG pH 7.28 L (7.35-7.45) ABG pO2 137 H (83-108) mmHg ABG HCO3 18 L (21-25) mmol/L ABG O2 Saturation 98.6 H (94-97) % Chloride 112 H (98-107) mmol/L Carbon Dioxide 19 L (22-30) mmol/L BUN 88 H (9-20) mg/dL Creatinine 3.05 H (0.66-1.25) mg/dL Glucose 108 H (74-99) mg/dL POC Glucose (mg/dL) (75-99) mg/dL Calcium 7.3 L (8.4-10.2) mg/dL Phosphorus 6.7 H (2.5-4.5) mg/dL ALT 61 H (4-49) U/L Alkaline Phosphatase 152 H (38-126) U/L Total Protein 4.6 L (6.3-8.2) g/dL Albumin 2.1 L (3.5-5.0) g/dL Prealbumin (18.0-42.0) mg/dL Assessment and Plan (1) Sepsis Current Visit: Yes Status: Acute Code(s): A41.9 - SEPSIS, UNSPECIFIED ORGANISM SNOMED Code(s): 32121403 Plan: 1patient with sepsis/septic shock likely secondary to abdominal source in this patient who did have a laparotomy for a mechanical small bowel obstruction requiring lysis of adhesion and small bowel resection though repeat CAT scan done about 10 days still show significant dilatation and more likely abdominal source with a clinical course also complicated by development of C. difficile colitis. 2blood culture has been requested we will also request for sputum for Gram stain and culture and check a urine culture. 3we will increase the dose of vancomycin to 500 every 6 and add IV Flagyl. 4discontinue Zosyn and continue with cefepime while waiting for the culture to finalize. 5IV fluid and pressor support per box storage worker We will follow on clinical condition and cultures to further adjust medication if needed Thank you for this consultation we will follow the patient along with you Time with Patient: Greater than 30
[2021-12-24 00:20] LABS: Glucose,Whole Blood 245 mg/dL (75-99)
[2021-12-24] MEDS: metroNIDAZOLE-NS PMX 500 MG in SALINE 1 100ML.BAG IVPB SCH ×3 (00:27→16:59)
[2021-12-24] MEDS: HEPARIN SODIUM,PORCINE/PF 5,000 UNIT/0.5 ML SYRINGE SQ SCH ×3 (00:27→16:59)
[2021-12-24] MEDS: INSULIN ASPART (NovoLOG) 100 UNIT/ML VIAL SQ SCH ×4 (00:27→18:57)
[2021-12-24] MEDS: MEXILETINE 200 MG CAP PO SCH ×3 (00:27→16:59)
[2021-12-24] MEDS: HYDROCORTISONE SUCCINATE 100 MG/2 ML VIAL IV SCH ×3 (00:27→16:58)
[2021-12-24 01:02] LABS: Glucose,Whole Blood 249 mg/dL (75-99)
[2021-12-24 01:18] LABS: Appearance,Urine Turbid (Clear); Bacteria,Urine Moderate /hpf; Bilirubin,Urine Negative (Negative); Blood,Urine Large (Negative); Budding Yeast,Urine Many /hpf; Color,Urine Yellow; Glucose,Urine (UA) Negative (Negative); Ketones,Urine Negative (Negative); Leukocyte Esterase,Urine Large (Negative); Mucus,Urine Rare /hpf; Nitrite,Urine Negative (Negative); Protein,Urine 1+ (Negative); RBC,Urine 41 /hpf (0-5); Specific Gravity,Urine 1.014 (1.001-1.035); Urobilinogen,Urine <2.0 mg/dL (<2.0); WBC,Urine 75 /hpf (0-5)
[2021-12-24] MEDS: SODIUM CHLORIDE 0.9% 150 ML with VASOPRESSIN 60 UNIT IV SCH ×4 (03:30→20:53)
[2021-12-24] MEDS: FUROSEMIDE 100 MG in SODIUM CHLORIDE 0.9% 90 ML IV SCH ×3 (03:31→15:08)
[2021-12-24] MEDS: DOBUTamine DRIP 500 MG in DEXTROSE/WATER 1 250ML.BAG IV SCH (05:10)
[2021-12-24] MEDS: NOREPINEPHRINE 32 MG in SODIUM CHLORIDE 0.9% 218 ML IV SCH ×3 (05:10→20:52)
[2021-12-24 05:16] LABS: Calcium 6.8 mg/dL (8.4-10.2); Potassium 5.5 mmol/L (3.5-5.1)
[2021-12-24 05:51] LABS: ABG Base Excess -8.5 mmol/L; ABG HCO3 18 mmol/L (21-25); ABG Oxygen Saturation 97.4 % (94-97); ABG PCO2 41 mmHg (35-45); ABG PH 7.26 (7.35-7.45); ABG PO2 107 mmHg (83-108); ABG TCO2 20 mmol/L (19-24); Allen Test Performed? Yes
--- NOTE | 2021-12-24 06:25 | XR ---
EXAMINATION TYPE: XR chest 1V portable DATE OF EXAM: 12/24/2021 CLINICAL HISTORY: Difficulty breathing progress study. TECHNIQUE: Single AP portable semiupright view of the chest is obtained. COMPARISON: Chest x-ray from one day earlier and older studies FINDINGS: Stable endotracheal and orogastric tubes. Stable left-sided subclavian central venous cath eter. Persistent cardiomegaly with dual lead pacemaker/AICD along with atherosclerotic and ectatic thoracic aorta. Persistent low lung volumes with bilateral predominantly lower lung opacities. Osseous struct ures are intact. IMPRESSION: Low lung volumes and Cardiomegaly with bilateral lower lung acute infiltrates and/or atel ectasis are all redemonstrated. No significant change from one day earlier
--- NOTE | 2021-12-24 07:35 | P.PN ---
Subjective Progress Note Date: 12/24/21 PROGRESS NOTE The patient is an 80-year-old male with known history of CAD status post stenting, cardiomyopathy him of ventricle tachycardia and ICD implantation who underwent exploratory laparotomy and colostomy. He had episode of recurrent ventricular tachycardia, has been stable after the addition of amiodarone and mexiletine. He continues to be in sinus mechanism. His blood pressure is stable. He continues to have peripheral edema but his urinary output has been stable. He denies any chest discomfort or dizziness. He is confused at times. There is no further evidence of ventricular tachycardia. His colostomy is working. He continues to be on amiodarone 400 mg twice a day, Lipitor 40 mg daily, Lasix 40 mg IV every 8 hours insulin, mexiletine 200 mg every 8 hours, spironolactone 12-1/2 mg daily December 22: The patient is more confused today, continues to be in sinus mechanism with no evidence of ventricular tachycardia or atrial fibrillation. He continues to be on dobutamine. His blood pressure is on the low side. His colostomy is functioning. He continues to have significant peripheral edema. He is receiving IV Lasix. There is no evidence of GI bleeding. In the past his ejection fraction was 40-45%, his most recent echocardiogram was suboptimal and no evaluation of his LV systolic function could be made. He continues to be on amiodarone 400 mg twice a day, mexiletine 200 mg every 8 hours, aspirin once a day in addition to Lasix 40 mg IV every 8 hours. December 23: The patient became more somnolent with respiratory distress, requiring mechanical ventilation. He is intubated and sedated. He continues to be on IV dobutamine and norepinephrine. He continues to be in sinus mechanism with no evidence of atrial or ventricular arrhythmia. An echocardiogram performed yesterday showed an ejection fraction of 45-50% with mild aortic stenosis and tricuspid regurgitation with mild pulmonary hypertension. He has good urine output but continues to have significant edema. He continues to be on amiodarone 400 mg twice a day, mexiletine 200 mg 3 times a day, Lasix 40 mg daily, Lipitor 40 mg daily, aspirin and Aldactone 12-1/2 mg daily. December 24: The patient remains intubated and sedated. He continues to be on IV dobutamine, nor epinephrine and vasopressin. His blood pressure has been stable and he continues to be in sinus mechanism. He has good urinary output but his renal functions are worse. He had no further episodes of ventricle tachycardia. He was evaluated by nephrology for possible dialysis if needed. He continues to have significant edema. His colostomy is functioning. Patient has findings suggestive of sepsis. He continues to receive TPN. He continues to be on mexiletine 200 mg 3 times a day, amiodarone 200 mg twice a day, Lipitor 40 mg daily and Aldactone 12.5 mg daily PHYSICAL EXAMINATION: Intubated and sedated Blood pressure 145/40 heart rate in the 84 LUNGS: Clear to auscultation anteriorly with mild decrease breath sounds at the bases HEART: Regular rate and rhythm, S1, S2. No S3. systolic ejection murmur at the base ABDOMEN: Soft, nontender, no organomegaly, colostomy bag in place EXTREMETIES: 2+ to 3+ edema LAB: BUN 100, creatinine 3.75, potassium 5.5. PH 7.26, pCO2 41, pO2 107. His C- reactive protein is 24 IMPRESSION: 1. Status post exploratory laparotomy and colostomy 2. Ventricle tachycardia, stable on present regimen 3. History of coronary artery disease and cardiomyopathy. Most recent echocardiogram showed an ejection fraction of 40-45% 4. Worsening renal failure 5. Paroxysmal atrial fibrillation, now in sinus mechanism 6. Anemia 7. Third spacing with peripheral edema 8. Respiratory failure with fluid overload with decrease in mentation. Urinary output at this time stable. PLAN: 1. Continue IV Lasix 2. Wean IV pressors as tolerated 3. Renal replacement as indicated depending on code status 4. Continue amiodarone and mexiletine for now 5. If blood pressure is stable and pressors are off add beta christelle 6. Prognosis remains guarded. Objective - Vital Signs Vital signs: Vital Signs Temp 98.9 F 12/24/21 04:00 Pulse 82 12/24/21 07:00 Resp 22 12/24/21 06:00 BP 105/53 12/24/21 01:00 Pulse Ox 97 12/24/21 07:00 Intake & Output 12/23/21 12/24/21 12/24/21 18:59 06:59 18:59 Intake Total 5197.337 8888.706 118 Output Total 260 1385 175 Balance 1575.184 971.706 -57 Weight 93 kg Intake: IV 815 725 70 Cefepime 2 gm In Sodium 100 Chloride 0.9% 100 ml @ 25 mls/hr IVPB Q12HR [facility] Rx #:[id number] Dextrose 5% in Water 1, 450 600 50 000 ml @ 50 mls/hr IV . Q23H [facility] with Sodium Bicarb (1 Meq/ml) 150 ml Rx#:[id number] Furosemide 100 mg In 20 Sodium Chloride 0.9% 90 ml @ 10 MG/HR 10 mls/hr IV .Q10H [facility] Rx#: [id number] Piperacillin-Tazobactam 3 100 .375 gm In Sodium Chloride 0.9% 100 ml @ 25 mls/hr IVPB Q12H [facility] Rx# :[id number] Sodium Chloride 0.9% 1, 45 25 20 000 ml @ 20 mls/hr IV . Q24H [facility] Rx#:[id number] metroNIDAZOLE-NS PMX 500 100 100 mg In Saline 1 100ml.bag @ 100 mls/hr IVPB Q8HR [facility] Rx#:[id number] Intake, IV Titration 207.497 9802.706 Amount DOBUTamine DRIP 500 mg In 250 Dextrose/Water 1 250ml. bag @ 2.5 MCG/KG/MIN 6. 975 mls/hr IV .Q24H [facility] Rx#:[id number] Furosemide 100 mg In 148.750 Sodium Chloride 0.9% 90 ml @ 10 MG/HR 10 mls/hr IV .Q10H [facility] Rx#: [id number] Norepinephrine 32 mg In 414.931 473.056 Sodium Chloride 0.9% 218 ml @ 0.05 MCG/KG/MIN 2.18 mls/hr IV .Q24H [facility] Rx#: [id number] propofoL 1,000 mg In 265.253 291.90 Empty Bag 1 bag @ 5 MCG/ KG/MIN 2.85 mls/hr IV . Q24H [facility] Rx#:[id number] Tube Feeding 250 408 48 Other 90 60 Output: Urine 260 1385 175 Other: Voiding Method Indwelling Catheter Indwelling Catheter ABP, PAP, CO, CI - Last Documented Arterial Blood Pressure 145/46 - Labs CBC & Chem 7: 12/23/21 04:18 12/24/21 04:40 Labs: Abnormal Lab Results - Last 24 Hours (Table) 12/23/21 12/23/21 12/23/21 Range/Units 11:34 17:09 19:11 ABG pH (7.35-7.45) ABG HCO3 (21-25) mmol/L ABG O2 Saturation (94-97) % Sodium 136 L (137-145) mmol/L Potassium 5.7 H (3.5-5.1) mmol/L Chloride 109 H (98-107) mmol/L Carbon Dioxide 13 L (22-30) mmol/L BUN 94 H (9-20) mg/dL Creatinine 3.65 H (0.66-1.25) mg/dL Glucose 195 H (74-99) mg/dL POC Glucose (mg/dL) 111 H 158 H (75-99) mg/dL Calcium 7.1 L (8.4-10.2) mg/dL C-Reactive Protein (<1.0) mg/dL Urine Protein (Negative) Urine Blood (Negative) Ur Leukocyte Esterase (Negative) Urine RBC (0-5) /hpf Urine WBC (0-5) /hpf Urine Bacteria (None) /hpf Urine Mucus (None) /hpf Urine Yeast (Budding) (None) /hpf 12/24/21 12/24/21 12/24/21 Range/Units 00:18 01:00 01:00 ABG pH (7.35-7.45) ABG HCO3 (21-25) mmol/L ABG O2 Saturation (94-97) % Sodium (137-145) mmol/L Potassium (3.5-5.1) mmol/L Chloride (98-107) mmol/L Carbon Dioxide (22-30) mmol/L BUN (9-20) mg/dL Creatinine (0.66-1.25) mg/dL Glucose (74-99) mg/dL POC Glucose (mg/dL) 245 H 249 H (75-99) mg/dL Calcium (8.4-10.2) mg/dL C-Reactive Protein (<1.0) mg/dL Urine Protein 1+ H (Negative) Urine Blood Large H (Negative) Ur Leukocyte Esterase Large H (Negative) Urine RBC 41 H (0-5) /hpf Urine WBC 75 H (0-5) /hpf Urine Bacteria Moderate H (None) /hpf Urine Mucus Rare H (None) /hpf Urine Yeast (Budding) Many H (None) /hpf 12/24/21 12/24/21 Range/Units 04:40 05:46 ABG pH 7.26 L (7.35-7.45) ABG HCO3 18 L (21-25) mmol/L ABG O2 Saturation 97.4 H (94-97) % Sodium 136 L (137-145) mmol/L Potassium 5.5 H (3.5-5.1) mmol/L Chloride (98-107) mmol/L Carbon Dioxide 16 L (22-30) mmol/L BUN 100 H (9-20) mg/dL Creatinine 3.75 H (0.66-1.25) mg/dL Glucose 225 H (74-99) mg/dL POC Glucose (mg/dL) (75-99) mg/dL Calcium 6.8 L (8.4-10.2) mg/dL C-Reactive Protein 24.0 H (<1.0) mg/dL Urine Protein (Negative) Urine Blood (Negative) Ur Leukocyte Esterase (Negative) Urine RBC (0-5) /hpf Urine WBC (0-5) /hpf Urine Bacteria (None) /hpf Urine Mucus (None) /hpf Urine Yeast (Budding) (None) /hpf
[2021-12-24] MEDS: DEXTROSE 5% IN WATER 1,000 ML with SODIUM BICARB (1 MEQ/ML) 150 ML IV SCH (08:21)
[2021-12-24] MEDS: CHLORHEXIDINE GLUCONATE 15 ML CUP MUCOUS MEM SCH ×2 (08:22→20:51)
[2021-12-24] MEDS: SPIRONOLACTONE 25 MG TAB PO SCH (08:24)
[2021-12-24] MEDS: FINASTERIDE 5 MG TAB PO SCH (08:24)
[2021-12-24] MEDS: FAMOTIDINE 20 MG/2 ML VIAL IV SCH (08:24)
[2021-12-24] MEDS: AMIODARONE 200 MG TAB PO SCH ×2 (08:24→20:51)
[2021-12-24] MEDS: ASPIRIN 81 MG PO SCH (08:24)
[2021-12-24] MEDS: CEFEPIME 1 GM in SODIUM CHLORIDE 0.9% 50 ML IVPB SCH ×2 (08:25→20:51)
[2021-12-24] MEDS: VANCOMYCIN ORAL SOLUTION 250 MG/5 ML BOTTLE PO SCH ×4 (08:25→22:06)
[2021-12-24 09:17] VITALS: BMI 33.0
[2021-12-24 09:26] LABS: HCT 29.3 % (39.0-53.0); Hypochromasia Marked; MCH 31.1 pg (25.0-35.0); MCHC 30.7 g/dL (31.0-37.0); MCV 101.4 fL (80.0-100.0); Macrocytosis Slight; Mean Platelet Volume 10.4; Platelet Count 365 k/uL (150-450); RBC 2.89 m/uL (4.30-5.90); RDW 14.7 % (11.5-15.5); WBC 20.3 k/uL (3.8-10.6)
--- NOTE | 2021-12-24 10:40 | P.PN ---
Subjective Progress Note Date: 12/24/21 Principal diagnosis: Status post exploratory laparotomy, lysis of adhesions, repair of peristomal hernia, small bowel resection on 12/09/2021. On 12/20/2021 patient seen in follow-up in intensive care unit, he is awake and alert, appears to be tachypneic, short of breath at rest, and with any conversation. He is on 4 L of oxygen with a pulse ox of 91%, and subsequently his flow was increased to 5 L in view of worsening dyspnea, patient is postoperative day #11, status post exploratory laparotomy, lysis of adhesions, repair of parastomal hernia, small bowel resection on 12/09/2021. His NG tube has been discontinued however patient is having somewhat of a hard time swallo wing, he is coughing at times, bringing up some yellowish colored phlegm, his Zosyn was discontinued, his colostomy is producing liquid brown stool. Patient was afebrile overnight, but generally he appears to be quite significantly fluid overloaded, he remains on Lasix 40 mg twice daily. He was in positive 1500 mL net fluid balance over the last 24 hours. His chest x-ray today showing hypoventilatory changes and patchy airspace disease at the periphery of the right base and at the retrocardiac region at the left base. The possibility of infectious etiology is being considered. No fever or chills overnight. His abdominal incision is draining moderate amount of serous output, midportion of the incision is packed with silver ion packing. Generally patient has significant anasarca, third spacing and received 4 doses of 25% albumin. Today's labs have been reviewed, with blood cell count is elevated but improved and is down to 25.7, hemoglobin is 10.3, sodium is 135, potassium is 4.5, chloride is 107, CO2 is 19, B1 is 65, creatinine is 1.93. LFTs are improved. On 12/21/2021 patient seen in follow-up in the intensive care unit. Still quite dyspneic, tachypneic, he was placed on CPAP support today with a pressure of 10 cm of water, and FiO2 currently is at 60%. His pulse ox is 96%, tolerating CPAP support well, still tachypneic, he is achieving tidal volumes of 799, his res piratory rate is 25-33, minute ventilation is 28 L/m. Remains on Lasix of 40 mg every 8 hours. She was started on Dobutrex at 2.5 mics per kilo per minute. Patient is again in +2 L net fluid balance over the last 24 hours. He has generalized edema in his upper and lower extremities, torso. Urine output is a new order off 85-100 ML per hour. Patient continues on TPN at 75 ML per hour. Today's chest x-ray showing cardiomegaly with left greater than right increasing opacities suggesting worsening pulmonary edema and/or infiltrate. Patient remains on Zosyn, his urine culture was positive for pseudomonas. Afebrile overnight. His blood pressures are marginal, was systolic in the 70s and 80s and occasionally in the 90s, with diastolic in the 50s and the mean of 55-65. Abdomen is nontender, his colostomy is producing some liquid stool, he remains on oral vancomycin for C. diff colitis. A total of 200 mL in liquid output from his colostomy in the last 24 hours. Today's labs have been reviewed, there is improvement in his white blood cell count which is down to 15.6, hemoglobin is 8.2, platelet count is 231, sodium is 137, potassium is 4.4, chloride is 108, CO2 is 21, BUN is 77, creatinine is 2.4 200 today's labs. Reevaluated today on 12/22/2021, patient has been gradually getting worse over the last 24 hours, last night the patient was developing more agitation, and he was on BiPAP at one point, later transitioned to a nonrebreather mask, O2 saturations remained marginal. Patient was placed on Precedex for his agitation, and when I evaluated the patient this morning, patient seemed to be in worsening respiratory distress. ABG was marginal at best. On a nonrebreath er mask, his pO2 was only 61 pCO2 34 pH of 7.40. Patient was noted to be tachypneic tachycardic, and extremely agitated. Chest x-ray showed evidence of worsening increased lung markings and pulmonary vasculature markings suggestive of pulmonary edema, underlying pneumonia is not entirely ruled out. Patient has been diuresing well and his renal functioning has been getting a bit worse. He has been receiving Lasix 40 mg IV push every 8 hours and is also on Dobutrex at 5 mcg/kg/m. Blood pressure has been marginal and he required placement on norepinephrine this morning. Yesterday I made the family aware including his and his son about his condition, and I explained to them that he may end up requiring intubation and mechanical ventilation. Indeed this morning the patient clearly needs to be intubated and mechanically ventilated, and my clinical judgment was to proceed with intubating the patient and placing the patient on mechanical ventilation in the meantime continue hemodynamic support, continue antibiotics, continue inotropic support, echocardiogram which was ordered by cardiology is pending this morning. Post intubation his ABG showed a pO2 of 190 pCO2 42 pH of 7.31, hence the patient was placed on FiO2 of 50%, tidal volume is 450 rate of 22 and PEEP of 5. CBC today showed WBC of 10.1 hemoglobin is 8 and platelets 181,000. Medication [place] patient remains on Tyl enol, amiodarone orally twice a day, Lipitor, Peridex, Pepcid, dobutamine which I cut down to 2.5 mcg/kg/m, Pepcid, TPN, Proscar, Lasix 40 mg cut down from 3 times a day to once daily patient is now on propofol drip and he is also on Dilaudid when necessary remains on Zosyn and he is requiring norepinephrine for marginal low blood pressure. Patient was reevaluated today on 12/23/2021, remains in the ICU, remains critically ill, patient required intubation and mechanical ventilation yesterday. He is now on tidal volume of 450 assist control rate of 22 FiO2 50% I cut it down to 45% and his PEEP is at 5. ABG this morning showed a pO2 of 137 pCO2 of 38 pH of 7.28, hence I started the patient today on a bicarb drip. At 50 mL per hour. I cut down his FiO2 to 45%. Patient is requiring more pressors he is basically maximized on norepinephrine at 1 mcg/kg/m, he is on Dobutrex at 5 mcg/kg/m receiving vasopressin at 0.03 units per minutes. Blood pressure remains marginal. Patient remains quite edematous and he seems to be third spacing with significant edema in upper and lower extremities. Chest x-ray continues showed bilateral interstitial edema/infiltrates. Not much of a guide changer the last 24 hours. Although his oxygenation is improving. Patient is still receiving antibiotics in the form of Zosyn, day considering the patient had only one urine culture that showed pseudomonas, I added cefepime at the patient seems to be septic and he is developing what looks like a septic shock. Blood cultures were ordered. Patient remains on oral vancomycin for C. difficile colitis. And he is on vital AF at 20 mL per hour. His ostomy seems to be functioning well. Reevaluated today on 12/19. Patient remains intubated and mechanically ventilated. He is now on assist control rate of 22 tidal volume of 450 FiO2 45% and PEEP of 5. ABG showed a pO2 of 107 pCO2 41 pH of 7.26. Patient remains on bicarb drip, and I increased the bicarb drip to 75 mL per hour instead of 50 mL per hour. Patient remains on multiple drips including sodium bicarb drip, norepinephrine at 0.7 vasopressin at 0.04 Lasix at 10 mg per hour patient is on dobutamine at 5 mcg/kg/m and I cut it down to 2.5 he is also on propofol at 15 mcg/kg/m vasopressin at 0.04. His IV fluids at 50 mL per hour. Patient is receiving vital AF at 48 mL per hour. Chest x-ray continues to show evidence of bilateral interstitial edema/infiltrates, his urine output seems to be excellent he is putting out over 1 50 mL per hour, however his renal status seems to be a bit worse. His electrolytes showed hyperkalemia with a potassium of 5.5 bicarb is 16 but that will improve with increasing the bicarb drip. BUN is 100 creatinine 3.75. Family was updated on his condition yesterday, and the CODE STATUS was changed to DO NOT RESUSCITATE. Continues to have leukocytosis with WBC count of 20.3 hemoglobin is 9. Continue blood cultures and urine cultures are pending. In the meantime the patient is on Zosyn and cefepime for his Pseudomonas infection in the urine which was diagnosed back on 12/08 Objective - Vital Signs Vital signs: Vital Signs Temp 99.1 F 12/24/21 08:00 Pulse 80 12/24/21 08:00 Resp 28 H 12/24/21 08:00 BP 119/54 12/24/21 08:00 Pulse Ox 97 12/24/21 08:00 Intake & Output 12/23/21 12/24/21 12/24/21 18:59 06:59 18:59 Intake Total 2545.725 8937.706 390.587 Output Total 260 1385 375 Balance 1575.184 971.706 15.587 Weight 93 kg 93 kg Intake: IV 815 725 120 Cefepime 2 gm In Sodium 100 Chloride 0.9% 100 ml @ 25 mls/hr IVPB Q12HR [facility] Rx #:[id number] Dextrose 5% in Water 1, 450 600 100 000 ml @ 50 mls/hr IV . Q23H [facility] with Sodium Bicarb (1 Meq/ml) 150 ml Rx#:[id number] Furosemide 100 mg In 20 Sodium Chloride 0.9% 90 ml @ 10 MG/HR 10 mls/hr IV .Q10H [facility] Rx#: [id number] Piperacillin-Tazobactam 3 100 .375 gm In Sodium Chloride 0.9% 100 ml @ 25 mls/hr IVPB Q12H [facility] Rx# :[id number] Sodium Chloride 0.9% 1, 45 25 20 000 ml @ 20 mls/hr IV . Q24H [facility] Rx#:[id number] metroNIDAZOLE-NS PMX 500 100 100 mg In Saline 1 100ml.bag @ 100 mls/hr IVPB Q8HR [facility] Rx#:[id number] Intake, IV Titration 544.380 5561.706 144.587 Amount DOBUTamine DRIP 500 mg In 250 Dextrose/Water 1 250ml. bag @ 2.5 MCG/KG/MIN 6. 975 mls/hr IV .Q24H [facility] Rx#:[id number] Furosemide 100 mg In 148.750 Sodium Chloride 0.9% 90 ml @ 10 MG/HR 10 mls/hr IV .Q10H [facility] Rx#: [id number] Norepinephrine 32 mg In 414.931 473.056 144.587 Sodium Chloride 0.9% 218 ml @ 0.05 MCG/KG/MIN 2.18 mls/hr IV .Q24H [facility] Rx#: [id number] propofoL 1,000 mg In 265.253 291.90 Empty Bag 1 bag @ 5 MCG/ KG/MIN 2.85 mls/hr IV . Q24H [facility] Rx#:[id number] Tube Feeding 250 408 96 Other 90 60 30 Output: Urine 260 1385 375 Other: Voiding Method Indwelling Catheter Indwelling Catheter ABP, PAP, CO, CI - Last Documented Arterial Blood Pressure 119/42 - Exam GENERAL EXAM: Revealed 80-year-old white male, intubated, sedated, on multiple pressors. HEAD: Normocephalic/atraumatic. EYES: Normal reaction of pupils, equal size. Conjunctiva pink, sclera white. NOSE: Clear with pink turbinates. NECK: Supple, no neck masses no JVD. CHEST: Symmetrical chest expansion noted deformity. LUNGS: Crackles at the bases. CVS: Distant S1 and S2, no S3 gallop, 2/6 systolic murmur thought the precordium. ABDOMEN: Soft, nontender. No hepatosplenomegaly, normal bowel sounds, no guarding or rigidity. Midabdominal incision is draining moderate to large amount of serous output, shant are in place, colostomy seems to be functional. EXTREMITIES: No clubbing, 3+ bipedal edema, no cyanosis. MUSCULOSKELETAL: No deformities. Could not assess motion. SKIN: No rashes CENTRAL NERVOUS SYSTEM: Could not assess, patient is sedated. PSYCHIATRIC: Could not assess. - Labs CBC & Chem 7: 12/24/21 04:45 12/24/21 04:40 Labs: Abnormal Lab Results - Last 24 Hours (Table) 12/23/21 12/23/21 12/23/21 Range/Units 11:34 17:09 19:11 WBC (3.8-10.6) k/uL RBC (4.30-5.90) m/uL Hgb (13.0-17.5) gm/dL Hct (39.0-53.0) % MCV (80.0-100.0) fL MCHC (31.0-37.0) g/dL ABG pH (7.35-7.45) ABG HCO3 (21-25) mmol/L ABG O2 Saturation (94-97) % Sodium 136 L (137-145) mmol/L Potassium 5.7 H (3.5-5.1) mmol/L Chloride 109 H (98-107) mmol/L Carbon Dioxide 13 L (22-30) mmol/L BUN 94 H (9-20) mg/dL Creatinine 3.65 H (0.66-1.25) mg/dL Glucose 195 H (74-99) mg/dL POC Glucose (mg/dL) 111 H 158 H (75-99) mg/dL Calcium 7.1 L (8.4-10.2) mg/dL C-Reactive Protein (<1.0) mg/dL Procalcitonin (0.02-0.09) ng/mL Urine Protein (Negative) Urine Blood (Negative) Ur Leukocyte Esterase (Negative) Urine RBC (0-5) /hpf Urine WBC (0-5) /hpf Urine Bacteria (None) /hpf Urine Mucus (None) /hpf Urine Yeast (Budding) (None) /hpf 12/24/21 12/24/21 12/24/21 Range/Units 00:18 01:00 01:00 WBC (3.8-10.6) k/uL RBC (4.30-5.90) m/uL Hgb (13.0-17.5) gm/dL Hct (39.0-53.0) % MCV (80.0-100.0) fL MCHC (31.0-37.0) g/dL ABG pH (7.35-7.45) ABG HCO3 (21-25) mmol/L ABG O2 Saturation (94-97) % Sodium (137-145) mmol/L Potassium (3.5-5.1) mmol/L Chloride (98-107) mmol/L Carbon Dioxide (22-30) mmol/L BUN (9-20) mg/dL Creatinine (0.66-1.25) mg/dL Glucose (74-99) mg/dL POC Glucose (mg/dL) 245 H 249 H (75-99) mg/dL Calcium (8.4-10.2) mg/dL C-Reactive Protein (<1.0) mg/dL Procalcitonin (0.02-0.09) ng/mL Urine Protein 1+ H (Negative) Urine Blood Large H (Negative) Ur Leukocyte Esterase Large H (Negative) Urine RBC 41 H (0-5) /hpf Urine WBC 75 H (0-5) /hpf Urine Bacteria Moderate H (None) /hpf Urine Mucus Rare H (None) /hpf Urine Yeast (Budding) Many H (None) /hpf 12/24/21 12/24/21 12/24/21 Range/Units 04:40 04:40 04:45 WBC 20.3 H (3.8-10.6) k/uL RBC 2.89 L (4.30-5.90) m/uL Hgb 9.0 L (13.0-17.5) gm/dL Hct 29.3 L (39.0-53.0) % MCV 101.4 H (80.0-100.0) fL MCHC 30.7 L (31.0-37.0) g/dL ABG pH (7.35-7.45) ABG HCO3 (21-25) mmol/L ABG O2 Saturation (94-97) % Sodium 136 L (137-145) mmol/L Potassium 5.5 H (3.5-5.1) mmol/L Chloride (98-107) mmol/L Carbon Dioxide 16 L (22-30) mmol/L BUN 100 H (9-20) mg/dL Creatinine 3.75 H (0.66-1.25) mg/dL Glucose 225 H (74-99) mg/dL POC Glucose (mg/dL) (75-99) mg/dL Calcium 6.8 L (8.4-10.2) mg/dL C-Reactive Protein 24.0 H (<1.0) mg/dL Procalcitonin 1.79 H (0.02-0.09) ng/mL Urine Protein (Negative) Urine Blood (Negative) Ur Leukocyte Esterase (Negative) Urine RBC (0-5) /hpf Urine WBC (0-5) /hpf Urine Bacteria (None) /hpf Urine Mucus (None) /hpf Urine Yeast (Budding) (None) /hpf 12/24/21 Range/Units 05:46 WBC (3.8-10.6) k/uL RBC (4.30-5.90) m/uL Hgb (13.0-17.5) gm/dL Hct (39.0-53.0) % MCV (80.0-100.0) fL MCHC (31.0-37.0) g/dL ABG pH 7.26 L (7.35-7.45) ABG HCO3 18 L (21-25) mmol/L ABG O2 Saturation 97.4 H (94-97) % Sodium (137-145) mmol/L Potassium (3.5-5.1) mmol/L Chloride (98-107) mmol/L Carbon Dioxide (22-30) mmol/L BUN (9-20) mg/dL Creatinine (0.66-1.25) mg/dL Glucose (74-99) mg/dL POC Glucose (mg/dL) (75-99) mg/dL Calcium (8.4-10.2) mg/dL C-Reactive Protein (<1.0) mg/dL Procalcitonin (0.02-0.09) ng/mL Urine Protein (Negative) Urine Blood (Negative) Ur Leukocyte Esterase (Negative) Urine RBC (0-5) /hpf Urine WBC (0-5) /hpf Urine Bacteria (None) /hpf Urine Mucus (None) /hpf Urine Yeast (Budding) (None) /hpf Assessment and Plan Assessment: Impression: Acute hypoxic respiratory failure, multifactorial requiring intubation and mechanical ventilation on 12/22/2021. Mostly related to acute on chronic systolic congestive heart failure and aspiration pneumonia is strongly olinda pected. Considering the patient is requiring significant amount of pressors, I'm also suspecting that we may be dealing with sepsis and septic shock. Repeat urine cultures and repeat blood cultures are pending. In the meantime the patient remains on Zosyn and on cefepime. Status post exploratory laparotomy, lysis of adhesions, repair of peristomal hernia, bowel resection on 12/09/2021. Postoperative day # 14 Acute urinary tract infection secondary to pseudomonas aeruginosa and history of right sided hydronephrosis. Repeat cultures are pending. C. difficile colitis, on oral vancomycin. septic shock. Requiring pressors Ischemic cardiomyopathy and LV dysfunction history of AICD placement and ablation for ventricular tachycardia. Asked ejection fraction was noted to be 45%. Cholelithiasis. Acute on chronic kidney injury, followed by nephrology. History of coronary artery disease and previous stent placement History of nonsustained ventricular tachycardia and review his ablation as well as AICD placement History of obstructive sleep apnea syndrome Benign essential hypertension History of colon cancer with previous colectomy and colostomy History of deep vein thrombosis Paroxysmal atrial fibrillation Hypoalbuminemia/hypoproteinemia. Recommendation: Continue ventilatory support Continue Lasix drip. Continue bicarbonate drip. Continue Solu-Cortef but will cut down the dose in the next 24 hours Continue norepinephrine and vasopressin. Continue dobutamine. Cut down to 2.5 mcg/kg/m Continue antibiotics/Zosyn, added cefepime today for his Pseudomonas infection and worsening septic picture. Continue TPN. Nutritional support. Continue GI and DVT prophylaxis. Continue to monitor renal status Updated the family on his condition yesterday. And the CODE STATUS was changed to DO NOT RESUSCITATE. Patient is critically ill. And critical care time is over 30 minutes. Overall prognosis remains extremely poor and guarded. We will continue to follow. Time with Patient: Greater than 30
--- NOTE | 2021-12-24 11:09 | P.PN ---
Subjective Progress Note Date: 12/24/21 CHIEF COMPLAINT: Small bowel ejection HISTORY OF PRESENT ILLNESS: Patient is in the ICU and on mechanical ventilation. Patient is requiring Levophed, vasopressor and is also on dobutamine. Patient was titrated down slightly on the Levophed. He remains on a Lasix drip. He has extensive generalized edema. He is on tube feeds for nutrition support. Ostomy output has decreased. Stool is brown. Patient is postop day #15 status post exploratory laparotomy, lysis of extensive adhesions, repair of parastomal hernia and small bowel resection for small bowel obstruction due to parastomal hernia and adhesions. Afebrile. WBC trending up from 19.1-20.3 hemoglobin 9.0 platelets 365. Cr 3.75 Patient seen and examined with Dr. velarde PHYSICAL EXAM: VITAL SIGNS: Reviewed. GENERAL: Intubated HEENT: No sclera icterus. Extraocular movements grossly intact. Moist buccal mucosa. Head is atraumatic, normocephalic. ABDOMEN: Soft. Nondistended. Serous drainage noted from incision. Does have one Aquacel Silver wick at the top of the incision. Ostomy functioning with brown stool. ASSESSMENT: 1. 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 Left hydronephrosis secondary to left ureteral stricture status post cystoscopy with left ureteroscopy balloon dilatation of the left distal ureteral stricture and left ureteral stent insertion by Dr. Cool 3. Sustained ventricle tachycardia 4. Distended gallbladder with cholelithiasis 5. Possible postoperative ileus 6. Leukocytosis 7. GI bleeding with blood noted in stool in ostomy bag likely secondary to the anticoagulation. Now resolved 8. Severe protein calorie malnutrition 9. History of atrial fibrillation 10. C. diff colitis 11. SHITAL PLAN: -Continue ICU management -Continue supportive care -Antibiotics per ID -Continue tube feeds for nutrition support -DVT prophylaxis subcu heparin Physician Program Management Specialist note has been reviewed by physician. Signing provider agrees with the documented findings, assessment, and plan of care. Objective - Vital Signs Vital signs: Vital Signs Temp 99.1 F 12/24/21 08:00 Pulse 78 12/24/21 10:00 Resp 22 12/24/21 10:00 BP 119/65 12/24/21 10:00 Pulse Ox 99 12/24/21 10:00 Intake & Output 12/23/21 12/24/21 12/24/21 18:59 06:59 18:59 Intake Total 8149.001 3892.706 758.474 Output Total 260 1385 475 Balance 1575.184 971.706 283.474 Weight 93 kg 93 kg Intake: IV 815 725 270 Cefepime 2 gm In Sodium 100 Chloride 0.9% 100 ml @ 25 mls/hr IVPB Q12HR [facility] Rx #:[id number] Dextrose 5% in Water 1, 450 600 250 000 ml @ 50 mls/hr IV . Q23H [facility] with Sodium Bicarb (1 Meq/ml) 150 ml Rx#:[id number] Furosemide 100 mg In 20 Sodium Chloride 0.9% 90 ml @ 10 MG/HR 10 mls/hr IV .Q10H [facility] Rx#: [id number] Piperacillin-Tazobactam 3 100 .375 gm In Sodium Chloride 0.9% 100 ml @ 25 mls/hr IVPB Q12H [facility] Rx# :[id number] Sodium Chloride 0.9% 1, 45 25 20 000 ml @ 20 mls/hr IV . Q24H [facility] Rx#:[id number] metroNIDAZOLE-NS PMX 500 100 100 mg In Saline 1 100ml.bag @ 100 mls/hr IVPB Q8HR [facility] Rx#:[id number] Intake, IV Titration 466.028 0452.706 322.474 Amount DOBUTamine DRIP 500 mg In 250 Dextrose/Water 1 250ml. bag @ 2.5 MCG/KG/MIN 6. 975 mls/hr IV .Q24H [facility] Rx#:[id number] Furosemide 100 mg In 148.750 Sodium Chloride 0.9% 90 ml @ 10 MG/HR 10 mls/hr IV .Q10H [facility] Rx#: [id number] Norepinephrine 32 mg In 414.931 473.056 222.474 Sodium Chloride 0.9% 218 ml @ 0.05 MCG/KG/MIN 2.18 mls/hr IV .Q24H [facility] Rx#: [id number] propofoL 1,000 mg In 265.253 291.90 100 Empty Bag 1 bag @ 5 MCG/ KG/MIN 2.85 mls/hr IV . Q24H [facility] Rx#:[id number] Tube Feeding 250 408 136 Other 90 60 30 Output: Urine 260 1385 475 Other: Voiding Method Indwelling Catheter Indwelling Catheter Indwelling Catheter ABP, PAP, CO, CI - Last Documented Arterial Blood Pressure 117/40 - Labs CBC & Chem 7: 12/24/21 04:45 12/24/21 04:40 Labs: Abnormal Lab Results - Last 24 Hours (Table) 12/23/21 12/23/21 12/23/21 Range/Units 11:34 17:09 19:11 WBC (3.8-10.6) k/uL RBC (4.30-5.90) m/uL Hgb (13.0-17.5) gm/dL Hct (39.0-53.0) % MCV (80.0-100.0) fL MCHC (31.0-37.0) g/dL ABG pH (7.35-7.45) ABG HCO3 (21-25) mmol/L ABG O2 Saturation (94-97) % Sodium 136 L (137-145) mmol/L Potassium 5.7 H (3.5-5.1) mmol/L Chloride 109 H (98-107) mmol/L Carbon Dioxide 13 L (22-30) mmol/L BUN 94 H (9-20) mg/dL Creatinine 3.65 H (0.66-1.25) mg/dL Glucose 195 H (74-99) mg/dL POC Glucose (mg/dL) 111 H 158 H (75-99) mg/dL Calcium 7.1 L (8.4-10.2) mg/dL C-Reactive Protein (<1.0) mg/dL Procalcitonin (0.02-0.09) ng/mL Urine Protein (Negative) Urine Blood (Negative) Ur Leukocyte Esterase (Negative) Urine RBC (0-5) /hpf Urine WBC (0-5) /hpf Urine Bacteria (None) /hpf Urine Mucus (None) /hpf Urine Yeast (Budding) (None) /hpf 12/24/21 12/24/21 12/24/21 Range/Units 00:18 01:00 01:00 WBC (3.8-10.6) k/uL RBC (4.30-5.90) m/uL Hgb (13.0-17.5) gm/dL Hct (39.0-53.0) % MCV (80.0-100.0) fL MCHC (31.0-37.0) g/dL ABG pH (7.35-7.45) ABG HCO3 (21-25) mmol/L ABG O2 Saturation (94-97) % Sodium (137-145) mmol/L Potassium (3.5-5.1) mmol/L Chloride (98-107) mmol/L Carbon Dioxide (22-30) mmol/L BUN (9-20) mg/dL Creatinine (0.66-1.25) mg/dL Glucose (74-99) mg/dL POC Glucose (mg/dL) 245 H 249 H (75-99) mg/dL Calcium (8.4-10.2) mg/dL C-Reactive Protein (<1.0) mg/dL Procalcitonin (0.02-0.09) ng/mL Urine Protein 1+ H (Negative) Urine Blood Large H (Negative) Ur Leukocyte Esterase Large H (Negative) Urine RBC 41 H (0-5) /hpf Urine WBC 75 H (0-5) /hpf Urine Bacteria Moderate H (None) /hpf Urine Mucus Rare H (None) /hpf Urine Yeast (Budding) Many H (None) /hpf 12/24/21 12/24/21 12/24/21 Range/Units 04:40 04:40 04:45 WBC 20.3 H (3.8-10.6) k/uL RBC 2.89 L (4.30-5.90) m/uL Hgb 9.0 L (13.0-17.5) gm/dL Hct 29.3 L (39.0-53.0) % MCV 101.4 H (80.0-100.0) fL MCHC 30.7 L (31.0-37.0) g/dL ABG pH (7.35-7.45) ABG HCO3 (21-25) mmol/L ABG O2 Saturation (94-97) % Sodium 136 L (137-145) mmol/L Potassium 5.5 H (3.5-5.1) mmol/L Chloride (98-107) mmol/L Carbon Dioxide 16 L (22-30) mmol/L BUN 100 H (9-20) mg/dL Creatinine 3.75 H (0.66-1.25) mg/dL Glucose 225 H (74-99) mg/dL POC Glucose (mg/dL) (75-99) mg/dL Calcium 6.8 L (8.4-10.2) mg/dL C-Reactive Protein 24.0 H (<1.0) mg/dL Procalcitonin 1.79 H (0.02-0.09) ng/mL Urine Protein (Negative) Urine Blood (Negative) Ur Leukocyte Esterase (Negative) Urine RBC (0-5) /hpf Urine WBC (0-5) /hpf Urine Bacteria (None) /hpf Urine Mucus (None) /hpf Urine Yeast (Budding) (None) /hpf 12/24/21 Range/Units 05:46 WBC (3.8-10.6) k/uL RBC (4.30-5.90) m/uL Hgb (13.0-17.5) gm/dL Hct (39.0-53.0) % MCV (80.0-100.0) fL MCHC (31.0-37.0) g/dL ABG pH 7.26 L (7.35-7.45) ABG HCO3 18 L (21-25) mmol/L ABG O2 Saturation 97.4 H (94-97) % Sodium (137-145) mmol/L Potassium (3.5-5.1) mmol/L Chloride (98-107) mmol/L Carbon Dioxide (22-30) mmol/L BUN (9-20) mg/dL Creatinine (0.66-1.25) mg/dL Glucose (74-99) mg/dL POC Glucose (mg/dL) (75-99) mg/dL Calcium (8.4-10.2) mg/dL C-Reactive Protein (<1.0) mg/dL Procalcitonin (0.02-0.09) ng/mL Urine Protein (Negative) Urine Blood (Negative) Ur Leukocyte Esterase (Negative) Urine RBC (0-5) /hpf Urine WBC (0-5) /hpf Urine Bacteria (None) /hpf Urine Mucus (None) /hpf Urine Yeast (Budding) (None) /hpf Microbiology - Last 24 Hours (Table) 12/24/21 01:00 Urine Culture - Preliminary Urine,Voided
[2021-12-24 11:51] LABS: Glucose,Whole Blood 201 mg/dL (75-99)
--- NOTE | 2021-12-24 13:52 | P.PN ---
Subjective Patient is seen for follow-up for acute kidney injury. Patient is a was admitted to the hospital with abdominal pain. He was taken to the OR on 12/09/2021 for explorative laparotomy. Patient had lysis of adhesions and repair of parastomal hernia. He has had a colostomy prior to admission. Patient also had left ureteral stone with hydronephrosis on the left side and was scheduled to have a left ureteral stent placement prior to admission. T herefore urology was consulted and left ureteral stent was placed at the same time while patient was in or on 12/09/2021. Postoperatively patient developed C. diff colitis he has been intubated for a cute hypoxic respiratory failure. Patient has been hypotensive requiring large amounts of pressors. Urine output had dropped yesterday to about 10-15 mL per hour for about 8-10 hours. Yesterday patient was started on a Lasix drip and it appears that his urine output has improved. Patient also has cardiomyopathy with ejection fraction at about 45% with severely dilated right ventricle. He has been maintained on dobutamine drip. Patient remains on the vent. FiO2 is at 45%. Levo fed is slightly decreased to 0.7 mcg/kg/m. Patient remains on vasopressin as well. Bicarb drip was started yesterday for metabolic acidosis. Renal replacement therapy was being considered yesterday however patient's urine output has now improved on the Lasix drip. He still remains quite volume overloaded. Objective - Vital Signs Vital signs: Vital Signs Temp 99.1 F 12/24/21 08:00 Pulse 78 12/24/21 12:00 Resp 26 H 12/24/21 12:00 BP 129/65 12/24/21 11:00 Pulse Ox 97 12/24/21 12:00 Intake & Output 12/23/21 12/24/21 12/24/21 18:59 06:59 18:59 Intake Total 4675.818 5459.706 1074.191 Output Total 260 1385 535 Balance 1575.184 971.706 539.191 Weight 93 kg 93 kg Intake: IV 815 725 420 Cefepime 2 gm In Sodium 100 Chloride 0.9% 100 ml @ 25 mls/hr IVPB Q12HR [facility] Rx #:[id number] Dextrose 5% in Water 1, 450 600 400 000 ml @ 50 mls/hr IV . Q23H [facility] with Sodium Bicarb (1 Meq/ml) 150 ml Rx#:[id number] Furosemide 100 mg In 20 Sodium Chloride 0.9% 90 ml @ 10 MG/HR 10 mls/hr IV .Q10H [facility] Rx#: [id number] Piperacillin-Tazobactam 3 100 .375 gm In Sodium Chloride 0.9% 100 ml @ 25 mls/hr IVPB Q12H [facility] Rx# :[id number] Sodium Chloride 0.9% 1, 45 25 20 000 ml @ 20 mls/hr IV . Q24H [facility] Rx#:[id number] metroNIDAZOLE-NS PMX 500 100 100 mg In Saline 1 100ml.bag @ 100 mls/hr IVPB Q8HR [facility] Rx#:[id number] Intake, IV Titration 987.936 7585.706 448.191 Amount DOBUTamine DRIP 500 mg In 250 Dextrose/Water 1 250ml. bag @ 2.5 MCG/KG/MIN 6. 975 mls/hr IV .Q24H [facility] Rx#:[id number] Furosemide 100 mg In 148.750 93.167 Sodium Chloride 0.9% 90 ml @ 10 MG/HR 10 mls/hr IV .Q10H [facility] Rx#: [id number] Norepinephrine 32 mg In 414.931 473.056 255.024 Sodium Chloride 0.9% 218 ml @ 0.05 MCG/KG/MIN 2.18 mls/hr IV .Q24H [facility] Rx#: [id number] propofoL 1,000 mg In 265.253 291.90 100 Empty Bag 1 bag @ 5 MCG/ KG/MIN 2.85 mls/hr IV . Q24H [facility] Rx#:[id number] Tube Feeding 250 408 176 Other 90 60 30 Output: Urine 260 1385 535 Other: Voiding Method Indwelling Catheter Indwelling Catheter Indwelling Catheter ABP, PAP, CO, CI - Last Documented Arterial Blood Pressure 114/43 - Exam Patient is sedated. FiO2 is at 45% Currently maintained on vasopressin, levo fed, bicarb drip, sedation Examination of the heart S1 and S2 Examination lungs bilateral breath sounds are heard Abdomen is dressed Examination lower extremities shows edema 2+ bilaterally upper and lower extremities ADMISSION NURSE COORDINATOR exam cannot be performed as patient is sedated - Labs CBC & Chem 7: 12/24/21 04:45 12/24/21 04:40 Labs: Abnormal Lab Results - Last 24 Hours (Table) 12/23/21 12/23/21 12/24/21 Range/Units 17:09 19:11 00:18 WBC (3.8-10.6) k/uL RBC (4.30-5.90) m/uL Hgb (13.0-17.5) gm/dL Hct (39.0-53.0) % MCV (80.0-100.0) fL MCHC (31.0-37.0) g/dL ABG pH (7.35-7.45) ABG HCO3 (21-25) mmol/L ABG O2 Saturation (94-97) % Sodium 136 L (137-145) mmol/L Potassium 5.7 H (3.5-5.1) mmol/L Chloride 109 H (98-107) mmol/L Carbon Dioxide 13 L (22-30) mmol/L BUN 94 H (9-20) mg/dL Creatinine 3.65 H (0.66-1.25) mg/dL Glucose 195 H (74-99) mg/dL POC Glucose (mg/dL) 158 H 245 H (75-99) mg/dL Calcium 7.1 L (8.4-10.2) mg/dL C-Reactive Protein (<1.0) mg/dL Procalcitonin (0.02-0.09) ng/mL Urine Protein (Negative) Urine Blood (Negative) Ur Leukocyte Esterase (Negative) Urine RBC (0-5) /hpf Urine WBC (0-5) /hpf Urine Bacteria (None) /hpf Urine Mucus (None) /hpf Urine Yeast (Budding) (None) /hpf 12/24/21 12/24/21 12/24/21 Range/Units 01:00 01:00 04:40 WBC (3.8-10.6) k/uL RBC (4.30-5.90) m/uL Hgb (13.0-17.5) gm/dL Hct (39.0-53.0) % MCV (80.0-100.0) fL MCHC (31.0-37.0) g/dL ABG pH (7.35-7.45) ABG HCO3 (21-25) mmol/L ABG O2 Saturation (94-97) % Sodium (137-145) mmol/L Potassium (3.5-5.1) mmol/L Chloride (98-107) mmol/L Carbon Dioxide (22-30) mmol/L BUN (9-20) mg/dL Creatinine (0.66-1.25) mg/dL Glucose (74-99) mg/dL POC Glucose (mg/dL) 249 H (75-99) mg/dL Calcium (8.4-10.2) mg/dL C-Reactive Protein (<1.0) mg/dL Procalcitonin 1.79 H (0.02-0.09) ng/mL Urine Protein 1+ H (Negative) Urine Blood Large H (Negative) Ur Leukocyte Esterase Large H (Negative) Urine RBC 41 H (0-5) /hpf Urine WBC 75 H (0-5) /hpf Urine Bacteria Moderate H (None) /hpf Urine Mucus Rare H (None) /hpf Urine Yeast (Budding) Many H (None) /hpf 12/24/21 12/24/21 12/24/21 Range/Units 04:40 04:45 05:46 WBC 20.3 H (3.8-10.6) k/uL RBC 2.89 L (4.30-5.90) m/uL Hgb 9.0 L (13.0-17.5) gm/dL Hct 29.3 L (39.0-53.0) % MCV 101.4 H (80.0-100.0) fL MCHC 30.7 L (31.0-37.0) g/dL ABG pH 7.26 L (7.35-7.45) ABG HCO3 18 L (21-25) mmol/L ABG O2 Saturation 97.4 H (94-97) % Sodium 136 L (137-145) mmol/L Potassium 5.5 H (3.5-5.1) mmol/L Chloride (98-107) mmol/L Carbon Dioxide 16 L (22-30) mmol/L BUN 100 H (9-20) mg/dL Creatinine 3.75 H (0.66-1.25) mg/dL Glucose 225 H (74-99) mg/dL POC Glucose (mg/dL) (75-99) mg/dL Calcium 6.8 L (8.4-10.2) mg/dL C-Reactive Protein 24.0 H (<1.0) mg/dL Procalcitonin (0.02-0.09) ng/mL Urine Protein (Negative) Urine Blood (Negative) Ur Leukocyte Esterase (Negative) Urine RBC (0-5) /hpf Urine WBC (0-5) /hpf Urine Bacteria (None) /hpf Urine Mucus (None) /hpf Urine Yeast (Budding) (None) /hpf 12/24/21 Range/Units 11:49 WBC (3.8-10.6) k/uL RBC (4.30-5.90) m/uL Hgb (13.0-17.5) gm/dL Hct (39.0-53.0) % MCV (80.0-100.0) fL MCHC (31.0-37.0) g/dL ABG pH (7.35-7.45) ABG HCO3 (21-25) mmol/L ABG O2 Saturation (94-97) % Sodium (137-145) mmol/L Potassium (3.5-5.1) mmol/L Chloride (98-107) mmol/L Carbon Dioxide (22-30) mmol/L BUN (9-20) mg/dL Creatinine (0.66-1.25) mg/dL Glucose (74-99) mg/dL POC Glucose (mg/dL) 201 H (75-99) mg/dL Calcium (8.4-10.2) mg/dL C-Reactive Protein (<1.0) mg/dL Procalcitonin (0.02-0.09) ng/mL Urine Protein (Negative) Urine Blood (Negative) Ur Leukocyte Esterase (Negative) Urine RBC (0-5) /hpf Urine WBC (0-5) /hpf Urine Bacteria (None) /hpf Urine Mucus (None) /hpf Urine Yeast (Budding) (None) /hpf Microbiology - Last 24 Hours (Table) 12/23/21 10:15 Blood Culture - Preliminary Blood No Growth after 24 hours 12/23/21 10:30 Blood Culture - Preliminary Blood No Growth after 24 hours 12/24/21 01:00 Urine Culture - Preliminary Urine,Voided Assessment and Plan Assessment: 1. Acute kidney injury ATN currently oliguric secondary to hypotension and sepsis, urine output improved with Lasix drip. We'll continue to monitor on a daily basis for need for renal replacement therapy. Continue to try and wean down the pressors 2. Urinary tract infection with urine culture growing Pseudomonas 3. C. diff colitis postoperatively 4. Metabolic acidosis associated with acute kidney injury, non-gap, started on bicarb drip 5. Volume overload 6. CHF acute on top of chronic mostly systolic currently maintained on dobutam ine 7. Bowel obstruction status post explorative laparotomy, lysis of irritations, repair of buried stomal hernia and bowel resection on 12/09/2021 8. Chronic kidney disease NKF stage IV with previous creatinine 1.9-2 mg/dL 9. History of colon cancer with previous history of colectomy and colostomy Plan: Continue with Lasix drip Hold dialysis today Reevaluate tomorrow for need for renal replacement therapy Avoid any nephrotoxic agents DC bicarb drip in a.m. depending on labs. Continue to wean down pressors as tolerated.
[2021-12-24] MEDS: SODIUM CHLORIDE 0.9% 1,000 ML IV SCH (15:08)
[2021-12-24] MEDS ORDERED: LIDOCAINE 1% INJ 10MG/ML (20 ML MDV) ONE (15:57)
[2021-12-24 16:18] LABS: Hepatitis B Surface AB- Quant 3.5 mIU/mL; Hepatitis B Surface Antibody Nonreactive (Nonreactive)
[2021-12-24 16:21] LABS: Hepatitis B Surface Antigen Nonreactive (Nonreactive)
--- NOTE | 2021-12-24 16:28 | P.GSCN ---
Past Medical History Past Medical History: Coronary Artery Disease (CAD), Cancer, COPD, Deep Vein Thrombosis (DVT), Hyperlipidemia, Hypertension, Osteoarthritis (OA), Sleep Apnea/CPAP/BIPAP Additional Past Medical History / Comment(s): colon cancer, SKIN CANCER, colostomy, vertigo, kidney stones, states very nauseated currently, DVT 03/2021 left leg, not using CPAP, currently on Rx for UTI Last Myocardial Infarction Date:: 03/2021 History of Any Multi-Drug Resistant Organisms: None Reported Past Surgical History: Adenoidectomy, AICD, Bowel Resection, Cardiac Ablation, Heart Catheterization With Stent, Hernia Repair, Pacemaker, Tonsillectomy Additional Past Surgical History / Comment(s): colostomy, two cardiac stents, Past Anesthesia/Blood Transfusion Reactions: No Reported Reaction Additional Past Anesthesia/Blood Transfusion Reaction / Comm: Pt received blood in the past without reaction. Date of Last Stent Placement:: 2020 Type of Cardiac Device: AICD Device Placement Date:: 04/01/2021 Past Psychological History: No Psychological Hx Reported Smoking Status: Never smoker - Past Family History Mother Family Medical History: Cancer Additional Family Medical History / Comment(s): Breast cancer. Father Additional Family Medical History / Comment(s): Valve replacement and pacemaker. Brother(s) Family Medical History: Coronary Artery Disease (CAD) Additional Family Medical History / Comment(s): CABG. Medications and Allergies Home Medications Medication Instructions Recorded Confirmed Type Atorvastatin [Lipitor] 40 mg PO HS 05/24/16 12/08/21 History Amiodarone [Cordarone] 200 mg PO BID 06/13/21 12/08/21 History Cholecalciferol [Vitamin D3 (25 50 mcg PO DAILY@1200 06/13/21 12/08/21 History Mcg = 1000 Iu)] Clopidogrel [Plavix] 75 mg PO DAILY 06/13/21 12/08/21 History Finasteride [Proscar] 5 mg PO DAILY 06/13/21 12/08/21 History Metoprolol Tartrate [Lopressor] 12.5 mg PO BID 06/13/21 12/08/21 History Sodium Bicarbonate Tab 650 mg PO TID 06/13/21 12/08/21 History Tamsulosin [Flomax] 0.4 mg PO HS 06/13/21 12/08/21 History Apixaban [Eliquis] 5 mg PO BID 07/16/21 12/08/21 History Calcium Acetate 667 mg PO W/BRKFST 12/01/21 12/08/21 History Cephalexin [Keflex] 500 mg PO Q6HR 10 Days #40 cap 12/01/21 12/08/21 Rx HYDROcodone/APAP 5-325MG [Barry 1 tab PO Q6HR PRN 3 Days #12 tab 12/01/21 12/08/21 Rx 5-325] Spironolactone 12.5 mg PO DAILY 12/01/21 12/08/21 History calcitrioL [Rocaltrol] 0.25 mcg PO WE@1200 12/01/21 12/08/21 History Nitrofurantoin Macrocrystal 100 mg PO TID 12/07/21 12/08/21 History [Nitrofurantoin] Docusate [Colace] 300 mg PO DAILY 12/08/21 12/08/21 History Ondansetron Odt [Zofran Odt] 4 mg PO Q6H PRN 12/08/21 12/08/21 History Allergies Allergy/AdvReac Type Severity Reaction Status Date / Time No Known Allergies Allergy Verified 12/08/21 10:29 Surgical - Exam Vital Signs Temp Pulse Resp BP Pulse Ox 97.5 F L 84 18 82/55 98 12/08/21 09:06 12/08/21 09:06 12/08/21 09:06 12/08/21 09:06 12/08/21 09:06 Results - Labs 12/24/21 04:45 12/24/21 04:40 Abnormal Lab Results - Last 24 Hours (Table) 12/23/21 12/23/21 12/24/21 Range/Units 17:09 19:11 00:18 WBC (3.8-10.6) k/uL RBC (4.30-5.90) m/uL Hgb (13.0-17.5) gm/dL Hct (39.0-53.0) % MCV (80.0-100.0) fL MCHC (31.0-37.0) g/dL ABG pH (7.35-7.45) ABG HCO3 (21-25) mmol/L ABG O2 Saturation (94-97) % Sodium 136 L (137-145) mmol/L Potassium 5.7 H (3.5-5.1) mmol/L Chloride 109 H (98-107) mmol/L Carbon Dioxide 13 L (22-30) mmol/L BUN 94 H (9-20) mg/dL Creatinine 3.65 H (0.66-1.25) mg/dL Glucose 195 H (74-99) mg/dL POC Glucose (mg/dL) 158 H 245 H (75-99) mg/dL Calcium 7.1 L (8.4-10.2) mg/dL C-Reactive Protein (<1.0) mg/dL Procalcitonin (0.02-0.09) ng/mL Urine Protein (Negative) Urine Blood (Negative) Ur Leukocyte Esterase (Negative) Urine RBC (0-5) /hpf Urine WBC (0-5) /hpf Urine Bacteria (None) /hpf Urine Mucus (None) /hpf Urine Yeast (Budding) (None) /hpf 12/24/21 12/24/21 12/24/21 Range/Units 01:00 01:00 04:40 WBC (3.8-10.6) k/uL RBC (4.30-5.90) m/uL Hgb (13.0-17.5) gm/dL Hct (39.0-53.0) % MCV (80.0-100.0) fL MCHC (31.0-37.0) g/dL ABG pH (7.35-7.45) ABG HCO3 (21-25) mmol/L ABG O2 Saturation (94-97) % Sodium (137-145) mmol/L Potassium (3.5-5.1) mmol/L Chloride (98-107) mmol/L Carbon Dioxide (22-30) mmol/L BUN (9-20) mg/dL Creatinine (0.66-1.25) mg/dL Glucose (74-99) mg/dL POC Glucose (mg/dL) 249 H (75-99) mg/dL Calcium (8.4-10.2) mg/dL C-Reactive Protein (<1.0) mg/dL Procalcitonin 1.79 H (0.02-0.09) ng/mL Urine Protein 1+ H (Negative) Urine Blood Large H (Negative) Ur Leukocyte Esterase Large H (Negative) Urine RBC 41 H (0-5) /hpf Urine WBC 75 H (0-5) /hpf Urine Bacteria Moderate H (None) /hpf Urine Mucus Rare H (None) /hpf Urine Yeast (Budding) Many H (None) /hpf 12/24/21 12/24/21 12/24/21 Range/Units 04:40 04:45 05:46 WBC 20.3 H (3.8-10.6) k/uL RBC 2.89 L (4.30-5.90) m/uL Hgb 9.0 L (13.0-17.5) gm/dL Hct 29.3 L (39.0-53.0) % MCV 101.4 H (80.0-100.0) fL MCHC 30.7 L (31.0-37.0) g/dL ABG pH 7.26 L (7.35-7.45) ABG HCO3 18 L (21-25) mmol/L ABG O2 Saturation 97.4 H (94-97) % Sodium 136 L (137-145) mmol/L Potassium 5.5 H (3.5-5.1) mmol/L Chloride (98-107) mmol/L Carbon Dioxide 16 L (22-30) mmol/L BUN 100 H (9-20) mg/dL Creatinine 3.75 H (0.66-1.25) mg/dL Glucose 225 H (74-99) mg/dL POC Glucose (mg/dL) (75-99) mg/dL Calcium 6.8 L (8.4-10.2) mg/dL C-Reactive Protein 24.0 H (<1.0) mg/dL Procalcitonin (0.02-0.09) ng/mL Urine Protein (Negative) Urine Blood (Negative) Ur Leukocyte Esterase (Negative) Urine RBC (0-5) /hpf Urine WBC (0-5) /hpf Urine Bacteria (None) /hpf Urine Mucus (None) /hpf Urine Yeast (Budding) (None) /hpf 12/24/21 Range/Units 11:49 WBC (3.8-10.6) k/uL RBC (4.30-5.90) m/uL Hgb (13.0-17.5) gm/dL Hct (39.0-53.0) % MCV (80.0-100.0) fL MCHC (31.0-37.0) g/dL ABG pH (7.35-7.45) ABG HCO3 (21-25) mmol/L ABG O2 Saturation (94-97) % Sodium (137-145) mmol/L Potassium (3.5-5.1) mmol/L Chloride (98-107) mmol/L Carbon Dioxide (22-30) mmol/L BUN (9-20) mg/dL Creatinine (0.66-1.25) mg/dL Glucose (74-99) mg/dL POC Glucose (mg/dL) 201 H (75-99) mg/dL Calcium (8.4-10.2) mg/dL C-Reactive Protein (<1.0) mg/dL Procalcitonin (0.02-0.09) ng/mL Urine Protein (Negative) Urine Blood (Negative) Ur Leukocyte Esterase (Negative) Urine RBC (0-5) /hpf Urine WBC (0-5) /hpf Urine Bacteria (None) /hpf Urine Mucus (None) /hpf Urine Yeast (Budding) (None) /hpf Microbiology - Last 24 Hours (Table) 12/23/21 10:15 Blood Culture - Preliminary Blood No Growth after 24 hours 12/23/21 10:30 Blood Culture - Preliminary Blood No Growth after 24 hours 12/24/21 01:00 Urine Culture - Preliminary Urine,Voided Diabetes panel 12/23/21 12/24/21 Range/Units 19:11 04:40 Sodium 136 L 136 L (137-145) mmol/L Potassium 5.7 H 5.5 H (3.5-5.1) mmol/L Chloride 109 H 107 (98-107) mmol/L Carbon Dioxide 13 L 16 L (22-30) mmol/L BUN 94 H 100 H (9-20) mg/dL Creatinine 3.65 H 3.75 H (0.66-1.25) mg/dL Glucose 195 H 225 H (74-99) mg/dL Calcium 7.1 L 6.8 L (8.4-10.2) mg/dL Calcium panel 12/23/21 12/24/21 Range/Units 19:11 04:40 Calcium 7.1 L 6.8 L (8.4-10.2) mg/dL Pituitary panel 12/23/21 12/24/21 Range/Units 19:11 04:40 Sodium 136 L 136 L (137-145) mmol/L Potassium 5.7 H 5.5 H (3.5-5.1) mmol/L Chloride 109 H 107 (98-107) mmol/L Carbon Dioxide 13 L 16 L (22-30) mmol/L BUN 94 H 100 H (9-20) mg/dL Creatinine 3.65 H 3.75 H (0.66-1.25) mg/dL Glucose 195 H 225 H (74-99) mg/dL Calcium 7.1 L 6.8 L (8.4-10.2) mg/dL Adrenal panel 12/23/21 12/24/21 Range/Units 19:11 04:40 Sodium 136 L 136 L (137-145) mmol/L Potassium 5.7 H 5.5 H (3.5-5.1) mmol/L Chloride 109 H 107 (98-107) mmol/L Carbon Dioxide 13 L 16 L (22-30) mmol/L BUN 94 H 100 H (9-20) mg/dL Creatinine 3.65 H 3.75 H (0.66-1.25) mg/dL Glucose 195 H 225 H (74-99) mg/dL Calcium 7.1 L 6.8 L (8.4-10.2) mg/dL
--- NOTE | 2021-12-24 17:36 | PCN ---
PROCEDURE NOTE PREOPERATIVE DIAGNOSIS: Acute on chronic renal failure. POSTOPERATIVE DIAGNOSIS: Acute on chronic renal failure. PROCEDURE PERFORMED: Ultrasound-guided dialysis catheter placement via right femoral approach. PROCEDURE DESCRIPTION: The patient was seen in the intensive care unit. Right groin was prepped and drapes were applied in sterile manner. Lidocaine 1% was infiltrated in the groin area. Ultrasound-guided micropuncture was introduced into the right common femoral vein. Micropuncture guidewire was passed. Then we passed a dilator on the top of the guidewire. Then we passed a regular guidewire and dilator was advanced on the top of the guidewire. Then we placed a dialysis catheter on top of the guidewire. The guidewire was removed, flushed with heparin saline and hep-locked, secured with 3-0 nylon. Dressing was applied. Patient tolerated the procedure well. SYLVESTER / SHARRIN: [id number] /
[2021-12-24 18:20] LABS: Glucose,Whole Blood 241 mg/dL (75-99)
--- NOTE | 2021-12-24 18:38 | P.PN ---
Subjective Progress Note Date: 12/24/21 (delayed charting seen at 0930) Principal diagnosis: intractable nausea and vomiting 80-year-old male with known colorectal cancer status post colostomy 21 years ago, coronary artery disease, hypertension, dyslipidemia, and multiple other comorbid conditions who initially presented to hospital with complaints of intractable nausea and vomiting. He had initially presented to the ER approximately 6 days before admission and was discharged home. On re-presentat ion he was found have a urinary tract infection with sepsis and possible small bowel obstruction. He was started on IV Rocephin and Flagyl along with IV fluids. Urology was consulted. He underwent stent placement with urology due to left distal obstructing calculi with moderate hydronephrosis. He also underwent exploratory laparotomy with lysis of adhesions and repair of periosteal hernia with small bowel resection. Patient's urine came back positive for Pseudomonas and he was treated with 5 days of IV antibiotics. He initially had progressed well but then had several setbacks. During his hospital stay he was found have cardiomyopathy. He then developed C. diff and became septic again. From 12/20 through 12/22 patient was gradually getting worse, more agitated, and requiring more oxygen support. He was also placed on Precedex to help with agitation. He was subsequently reintubated on 12/22. He required vasopressor support. Imaging: KUB 12/08-dilated small bowel measuring up to 6.4 cm suspect distal small bowel obstruction. CT abdomen and pelvis 12/08-acute high-grade mechanical small bowel obstruction with a transition point in the left lower quadrant peristomal hernia, persistent left distal ureter obstructing calculi with moderate left-sided hydroureter and hydronephrosis. Liver ultrasound 12/11-cholelithiasis with distended gallbladder possibly indicating acute cholecystitis, renal stone with mild to moderate hydronephrosis Echo 12/13- poor study unable to calculate EF CT abdomen and pelvis 12/13: Left lower quadrant peristomal hernia currently 9 cm wide with hernia sac containing some redundant sigmoid colon, diffuse dilated proximal and mid small bowel NG tube is lupus and is moderate-sized hiatal hernia and contrast baths of the esophagus, few tiny foci of free air in the right upper quadrant and pelvis, generalized anasarca, small to moderate pleural effusions bilaterally, left ureteric stent, hydropic gallbladder with cholelithiasis Echo 12/22- EF 45-50%, sevrelt enlarged RV, Procedures: Left ureteroscopy with balloon dilation of the left distal ureter with stent placement and cystoscopy 12/09 Exploratory laparotomy with lysis of adhesion and repair of parastomal hernia and small bowel resection 12/09 Left subclavian triple-lumen catheter placed 12/12 Artline 12/22 Patient unresponsive on vent. Per nursing they were able to come down on vasopressors overnight. General: Ill appearing, maximal distress, appears older than stated age Derm: warm, dry Head: atraumatic, normocephalic, symmetric Eyes: EOMI, no lid lag, anicteric sclera Mouth: no lip lesion, mucus membranes moist Cardiovascular: S1S2 reg, no murmur, positive posterior tibial pulse bilateral, Lungs: CTA bilateral, no rhonchi, no rales , no accessory muscle use, on vent Abdominal: soft, nontender to palpation, no guarding, no appreciable organomegaly Ext: no gross muscle atrophy, diffuse anasarca , no contractures Neuro: PERRL, Breathing over the vent, + cough Psych: Intubated and sedated Assessment/plan: Urinary tract infection, complicated with pseudomonas and septic shock Obstructive uropathy 3 status post stent placement 12/09 Small bowel obstruction Acute cholecystitis GI bleeding with stool noted ostomy bag-suspected secondary to anticoagulation Acute hypoxic respiratory failure, possible underlying aspiration pneumonia -Patient completed antibiotics for UTI on 12/16 with Zosyn, - ID recs appreciated- cefepime -Urology recommendations appreciated: Needs outpatient follow-up, flomax -General surgery recommendations: On TPN - continue with levophed, vaso - Critical care recs appreciated: managing gabriel - stress dose steroids SHITAL on CKD 3 baseline Cr 2 Hyperkalemia - Follow Cr closely - Nephrology recs appreciated - likely multifactorial - on bicarb gtt Acute exacerbation systolic 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 fib -Cardiology recommendations -Amiodarone oral,Mexlietine - Dobutamine -On aldactone - Lasix gtt -strict I's and O's, daily weights -Telemetry C. diff infection -On oral vancomycin, IV flagyl - ID recs Acute blood loss anemia -Status post packed red blood cells on 12/16 Severe protein calorie malnutrition -On TPN Hyperglycemia -Continue with sliding scale insulin and Levemir 15 units at night -Follow blood sugars -Hemoglobin A1c 5.7, will need repeat in 3 months Coronary artery disease status post stenting -Aspirin -Lipitor Hyperlipidemia Essential hypertension DNR DVT prophylaxis: Heparin Discussed with: Nursing, no family present at bedside Anticipated discharge: undetermined Anticipated discharge place: undetermined A total of 45 minutes was spent on the care of this complex patient more than 50% of the time was spent in counseling and care coordination. Active Medications Acetaminophen (Acetaminophen Tab 325 Mg Tab) 650 mg PO Q6HR PRN PRN Reason: Fever and/ or MILD Pain Last Admin: 12/15/21 11:56 Dose: 650 mg Documented by: Hydrocodone Bitart/Acetaminophen (Hydrocodone/Apap 7.5-325mg 1 Each Tab) 1 each PO Q6H PRN PRN Reason: MODERATE Pain Amiodarone HCl (Amiodarone 200 Mg Tab) 200 mg PO BID [facility] Last Admin: 12/24/21 08:24 Dose: 200 mg Documented by: Aspirin (Aspirin 81 Mg) 81 mg PO DAILY [facility] Last Admin: 12/24/21 08:24 Dose: 81 mg Documented by: Atorvastatin Calcium (Atorvastatin 40 Mg Tab) 40 mg PO HS [facility] Last Admin: 12/23/21 20:23 Dose: 40 mg Documented by: Chlorhexidine Gluconate (Chlorhexidine Gluconate 15 Ml Cup) 15 ml MUCOUS MEM BID [facility] Last Admin: 12/24/21 08:22 Dose: 15 ml Documented by: Famotidine (Famotidine 20 Mg/2 Ml Vial) 20 mg IV DAILY [facility] Last Admin: 12/24/21 08:24 Dose: 20 mg Documented by: Finasteride (Finasteride 5 Mg Tab) 5 mg PO DAILY [facility] Last Admin: 12/24/21 08:24 Dose: 5 mg Documented by: Heparin Sodium (Porcine) (Heparin Sodium,Porcine/Pf 5,000 Unit/0.5 Ml Syringe) 5,000 unit SQ Q8HR [facility] Last Admin: 12/24/21 16:59 Dose: 5,000 unit Documented by: Hydrocortisone Sodium Succinate (Hydrocortisone Succinate 100 Mg/2 Ml Vial) 100 mg IV Q8HR [facility] Last Admin: 12/24/21 16:58 Dose: 100 mg Documented by: Hydromorphone HCl (Hydromorphone 1 Mg/Ml 1 Ml Syringe) 1 mg IVP Q2H PRN PRN Reason: Breakthrough Pain Last Admin: 12/22/21 06:14 Dose: 1 mg Documented by: Sodium Chloride (Saline 0.9%) 1,000 mls @ 20 mls/hr IV .Q24H [facility] Last Admin: 12/24/21 15:08 Dose: 20 mls/hr Documented by: Dobutamine HCl/Dextrose 500 mg (/ IV Solution) 250 mls @ 6.975 mls/hr IV .Q24H [facility] Last Admin: 12/24/21 05:10 Dose: 5 mcg/kg/min, 13.95 mls/hr Documented by: Propofol 1,000 mg/ IV Solution 100 mls @ 2.85 mls/hr IV .Q24H [facility]; Protocol Last Admin: 12/24/21 14:24 Dose: 50 mcg/kg/min, 28.5 mls/hr Documented by: Norepinephrine Bitartrate 32 (mg/ Sodium Chloride) 250 mls @ 2.18 mls/hr IV .Q24H [facility]; Protocol Last Titration: 12/24/21 16:52 Dose: 0.4 mcg/kg/min, 17.438 mls/hr Documented by: Vasopressin 60 unit/ Sodium (Chloride) 153 mls @ 6.12 mls/hr IV .Q24H [facility]; Protocol Last Admin: 12/24/21 03:30 Dose: 6.12 mls/hr Documented by: Sodium Bicarbonate 150 ml/ (Dextrose/Water) 1,150 mls @ 50 mls/hr IV .Q23H [facility] Last Admin: 12/24/21 08:21 Dose: 50 mls/hr Documented by: Furosemide 100 mg/ Sodium (Chloride) 100 mls @ 10 mls/hr IV .Q10H [facility] Last Admin: 12/24/21 12:50 Dose: 10 mg/hr, 10 mls/hr Documented by: Metronidazole 500 mg/ IV (Solution) 100 mls @ 100 mls/hr IVPB Q8HR [facility]; Protocol Last Admin: 12/24/21 16:59 Dose: 100 mls/hr Documented by: Cefepime HCl 1 gm/ Sodium (Chloride) 50 mls @ 12.5 mls/hr IVPB Q12HR [facility] Last Admin: 12/24/21 08:25 Dose: 12.5 mls/hr Documented by: Furosemide 100 mg/ Sodium (Chloride) 100 mls @ 15 mls/hr IV .Q6H40M [facility] Last Admin: 12/24/21 15:08 Dose: 15 mg/hr, 15 mls/hr Documented by: Insulin Aspart (Insulin Aspart (Novolog) 100 Unit/Ml Vial) 0 unit SQ Q6H [facility]; Protocol Last Admin: 12/24/21 12:35 Dose: 3 unit Documented by: Insulin Detemir (Insulin Detemir (Levemir) 100 Unit/Ml Syr) 15 unit SQ [facility] Last Admin: 12/23/21 20:23 Dose: 15 unit Documented by: Mexiletine HCl (Mexiletine 200 Mg Cap) 200 mg PO Q8HR [facility] Last Admin: 12/24/21 16:59 Dose: 200 mg Documented by: Miscellaneous Information (Potassium Replacement Protocol 1 Each Misc) 1 each MISCELLANE DAILY PRN; Protocol PRN Reason: Per Protocol Naloxone HCl (Naloxone 0.4 Mg/Ml 1 Ml Vial) 0.2 mg IV Q2M PRN PRN Reason: Opioid Reversal Spironolactone (Spironolactone 25 Mg Tab) 12.5 mg PO DAILY [facility] Last Admin: 12/24/21 08:24 Dose: 12.5 mg Documented by: Tamsulosin HCl (Tamsulosin 0.4 Mg Cap.Er.24h) 0.4 mg PO [facility] Last Admin: 12/23/21 20:19 Dose: Not Given Documented by: Vancomycin HCl (Vancomycin Oral Solution 250 Mg/5 Ml Bottle) 500 mg PO QID [facility]; Protocol Stop: 12/26/21 13:01 Last Admin: 12/24/21 12:41 Dose: 500 mg Documented by: Objective - Vital Signs Vital signs: Vital Signs Temp 98.7 F 12/24/21 16:00 Pulse 71 12/24/21 17:00 Resp 26 H 12/24/21 17:00 BP 116/53 12/24/21 17:00 Pulse Ox 97 12/24/21 17:00 Intake & Output 12/23/21 12/24/21 12/24/21 18:59 06:59 18:59 Intake Total 9602.207 2882.706 1774.668 Output Total 260 1385 910 Balance 1575.184 971.706 864.668 Weight 93 kg 93 kg Intake: IV 815 725 795 Cefepime 2 gm In Sodium 100 Chloride 0.9% 100 ml @ 25 mls/hr IVPB Q12HR [facility] Rx #:[id number] Dextrose 5% in Water 1, 450 600 775 000 ml @ 50 mls/hr IV . Q23H [facility] with Sodium Bicarb (1 Meq/ml) 150 ml Rx#:[id number] Furosemide 100 mg In 20 Sodium Chloride 0.9% 90 ml @ 10 MG/HR 10 mls/hr IV .Q10H [facility] Rx#: [id number] Piperacillin-Tazobactam 3 100 .375 gm In Sodium Chloride 0.9% 100 ml @ 25 mls/hr IVPB Q12H [facility] Rx# :[id number] Sodium Chloride 0.9% 1, 45 25 20 000 ml @ 20 mls/hr IV . Q24H [facility] Rx#:[id number] metroNIDAZOLE-NS PMX 500 100 100 mg In Saline 1 100ml.bag @ 100 mls/hr IVPB Q8HR [facility] Rx#:[id number] Intake, IV Titration 362.625 0319.706 673.668 Amount DOBUTamine DRIP 500 mg In 250 Dextrose/Water 1 250ml. bag @ 2.5 MCG/KG/MIN 6. 975 mls/hr IV .Q24H [facility] Rx#:[id number] Furosemide 100 mg In 148.750 93.167 Sodium Chloride 0.9% 90 ml @ 10 MG/HR 10 mls/hr IV .Q10H [facility] Rx#: [id number] Norepinephrine 32 mg In 414.931 473.056 380.501 Sodium Chloride 0.9% 218 ml @ 0.05 MCG/KG/MIN 2.18 mls/hr IV .Q24H [facility] Rx#: [id number] propofoL 1,000 mg In 265.253 291.90 200 Empty Bag 1 bag @ 5 MCG/ KG/MIN 2.85 mls/hr IV . Q24H [facility] Rx#:[id number] Tube Feeding 250 408 276 Other 90 60 30 Output: Urine 260 1385 910 Other: Voiding Method Indwelling Catheter Indwelling Catheter Indwelling Catheter ABP, PAP, CO, CI - Last Documented Arterial Blood Pressure 116/37 - Labs CBC & Chem 7: 12/24/21 04:45 12/24/21 04:40 Labs: Abnormal Lab Results - Last 24 Hours (Table) 12/23/21 12/24/21 12/24/21 Range/Units 19:11 00:18 01:00 WBC (3.8-10.6) k/uL RBC (4.30-5.90) m/uL Hgb (13.0-17.5) gm/dL Hct (39.0-53.0) % MCV (80.0-100.0) fL MCHC (31.0-37.0) g/dL ABG pH (7.35-7.45) ABG HCO3 (21-25) mmol/L ABG O2 Saturation (94-97) % Sodium 136 L (137-145) mmol/L Potassium 5.7 H (3.5-5.1) mmol/L Chloride 109 H (98-107) mmol/L Carbon Dioxide 13 L (22-30) mmol/L BUN 94 H (9-20) mg/dL Creatinine 3.65 H (0.66-1.25) mg/dL Glucose 195 H (74-99) mg/dL POC Glucose (mg/dL) 245 H 249 H (75-99) mg/dL Calcium 7.1 L (8.4-10.2) mg/dL C-Reactive Protein (<1.0) mg/dL Procalcitonin (0.02-0.09) ng/mL Urine Protein (Negative) Urine Blood (Negative) Ur Leukocyte Esterase (Negative) Urine RBC (0-5) /hpf Urine WBC (0-5) /hpf Urine Bacteria (None) /hpf Urine Mucus (None) /hpf Urine Yeast (Budding) (None) /hpf 12/24/21 12/24/21 12/24/21 Range/Units 01:00 04:40 04:40 WBC (3.8-10.6) k/uL RBC (4.30-5.90) m/uL Hgb (13.0-17.5) gm/dL Hct (39.0-53.0) % MCV (80.0-100.0) fL MCHC (31.0-37.0) g/dL ABG pH (7.35-7.45) ABG HCO3 (21-25) mmol/L ABG O2 Saturation (94-97) % Sodium 136 L (137-145) mmol/L Potassium 5.5 H (3.5-5.1) mmol/L Chloride (98-107) mmol/L Carbon Dioxide 16 L (22-30) mmol/L BUN 100 H (9-20) mg/dL Creatinine 3.75 H (0.66-1.25) mg/dL Glucose 225 H (74-99) mg/dL POC Glucose (mg/dL) (75-99) mg/dL Calcium 6.8 L (8.4-10.2) mg/dL C-Reactive Protein 24.0 H (<1.0) mg/dL Procalcitonin 1.79 H (0.02-0.09) ng/mL Urine Protein 1+ H (Negative) Urine Blood Large H (Negative) Ur Leukocyte Esterase Large H (Negative) Urine RBC 41 H (0-5) /hpf Urine WBC 75 H (0-5) /hpf Urine Bacteria Moderate H (None) /hpf Urine Mucus Rare H (None) /hpf Urine Yeast (Budding) Many H (None) /hpf 12/24/21 12/24/21 12/24/21 Range/Units 04:45 05:46 11:49 WBC 20.3 H (3.8-10.6) k/uL RBC 2.89 L (4.30-5.90) m/uL Hgb 9.0 L (13.0-17.5) gm/dL Hct 29.3 L (39.0-53.0) % MCV 101.4 H (80.0-100.0) fL MCHC 30.7 L (31.0-37.0) g/dL ABG pH 7.26 L (7.35-7.45) ABG HCO3 18 L (21-25) mmol/L ABG O2 Saturation 97.4 H (94-97) % Sodium (137-145) mmol/L Potassium (3.5-5.1) mmol/L Chloride (98-107) mmol/L Carbon Dioxide (22-30) mmol/L BUN (9-20) mg/dL Creatinine (0.66-1.25) mg/dL Glucose (74-99) mg/dL POC Glucose (mg/dL) 201 H (75-99) mg/dL Calcium (8.4-10.2) mg/dL C-Reactive Protein (<1.0) mg/dL Procalcitonin (0.02-0.09) ng/mL Urine Protein (Negative) Urine Blood (Negative) Ur Leukocyte Esterase (Negative) Urine RBC (0-5) /hpf Urine WBC (0-5) /hpf Urine Bacteria (None) /hpf Urine Mucus (None) /hpf Urine Yeast (Budding) (None) /hpf Microbiology - Last 24 Hours (Table) 12/23/21 10:15 Blood Culture - Preliminary Blood No Growth after 24 hours 12/23/21 10:30 Blood Culture - Preliminary Blood No Growth after 24 hours 12/24/21 01:00 Urine Culture - Preliminary Urine,Voided
[2021-12-24] MEDS: TAMSULOSIN 0.4 MG CAP.ER.24H PO SCH (20:44)
[2021-12-24] MEDS: ATORVASTATIN 40 MG TAB PO SCH (20:51)
[2021-12-24] MEDS: INSULIN DETEMIR (LEVEMIR) 100 UNIT/ML SYR SQ SCH (20:51)
--- NOTE | 2021-12-24 21:03 | P.PN ---
Subjective Progress Note Date: 12/24/21 Principal diagnosis: Sepsis Patient is a 80 year old male presented to the hospital more than 2 weeks ago for nausea and vomiting has been diagnosed with a high-grade small bowel obstruction status post laparotomy with lysis of adhesion and small bowel resection also have cystoscopy and left ureteroscopy with balloon dilatation of left distal ureteral stricture and a clinical course complicated by development of C. diff colitis, patient subsequently did have a respiratory failure requiring intubation and hypotension requiring pressor support. On today's evaluation that is 12/24/2021 the patient is afebrile, the patient remains to be debated on the vent, however no significant purulent secretions through the ET, patient is requiring less pressor support per the nursing staff and no worsening diarrhea Objective - Vital Signs Vital signs: Vital Signs Temp 99.1 F 12/24/21 08:00 Pulse 78 12/24/21 12:00 Resp 26 H 12/24/21 12:00 BP 129/65 12/24/21 11:00 Pulse Ox 97 12/24/21 12:00 Intake & Output 12/23/21 12/24/21 12/24/21 18:59 06:59 18:59 Intake Total 0636.202 3265.706 1074.191 Output Total 260 1385 535 Balance 1575.184 971.706 539.191 Weight 93 kg 93 kg Intake: IV 815 725 420 Cefepime 2 gm In Sodium 100 Chloride 0.9% 100 ml @ 25 mls/hr IVPB Q12HR [facility] Rx #:[id number] Dextrose 5% in Water 1, 450 600 400 000 ml @ 50 mls/hr IV . Q23H [facility] with Sodium Bicarb (1 Meq/ml) 150 ml Rx#:[id number] Furosemide 100 mg In 20 Sodium Chloride 0.9% 90 ml @ 10 MG/HR 10 mls/hr IV .Q10H [facility] Rx#: [id number] Piperacillin-Tazobactam 3 100 .375 gm In Sodium Chloride 0.9% 100 ml @ 25 mls/hr IVPB Q12H [facility] Rx# :[id number] Sodium Chloride 0.9% 1, 45 25 20 000 ml @ 20 mls/hr IV . Q24H [facility] Rx#:[id number] metroNIDAZOLE-NS PMX 500 100 100 mg In Saline 1 100ml.bag @ 100 mls/hr IVPB Q8HR [facility] Rx#:[id number] Intake, IV Titration 001.128 2035.706 448.191 Amount DOBUTamine DRIP 500 mg In 250 Dextrose/Water 1 250ml. bag @ 2.5 MCG/KG/MIN 6. 975 mls/hr IV .Q24H [facility] Rx#:[id number] Furosemide 100 mg In 148.750 93.167 Sodium Chloride 0.9% 90 ml @ 10 MG/HR 10 mls/hr IV .Q10H [facility] Rx#: [id number] Norepinephrine 32 mg In 414.931 473.056 255.024 Sodium Chloride 0.9% 218 ml @ 0.05 MCG/KG/MIN 2.18 mls/hr IV .Q24H [facility] Rx#: [id number] propofoL 1,000 mg In 265.253 291.90 100 Empty Bag 1 bag @ 5 MCG/ KG/MIN 2.85 mls/hr IV . Q24H [facility] Rx#:[id number] Tube Feeding 250 408 176 Other 90 60 30 Output: Urine 260 1385 535 Other: Voiding Method Indwelling Catheter Indwelling Catheter Indwelling Catheter ABP, PAP, CO, CI - Last Documented Arterial Blood Pressure 114/43 - Exam GENERAL DESCRIPTION: An elderly male intubated on the vent RESPIRATORY SYSTEM: Unlabored breathing , decreased breath sounds at bases HEART: S1 S2 regular rate and rhythm , ABDOMEN: Soft , no tenderness EXTREMITIES: 2+ edema feet - Labs CBC & Chem 7: 12/24/21 04:45 12/24/21 04:40 Labs: Abnormal Lab Results - Last 24 Hours (Table) 12/23/21 12/23/21 12/24/21 Range/Units 17:09 19:11 00:18 WBC (3.8-10.6) k/uL RBC (4.30-5.90) m/uL Hgb (13.0-17.5) gm/dL Hct (39.0-53.0) % MCV (80.0-100.0) fL MCHC (31.0-37.0) g/dL ABG pH (7.35-7.45) ABG HCO3 (21-25) mmol/L ABG O2 Saturation (94-97) % Sodium 136 L (137-145) mmol/L Potassium 5.7 H (3.5-5.1) mmol/L Chloride 109 H (98-107) mmol/L Carbon Dioxide 13 L (22-30) mmol/L BUN 94 H (9-20) mg/dL Creatinine 3.65 H (0.66-1.25) mg/dL Glucose 195 H (74-99) mg/dL POC Glucose (mg/dL) 158 H 245 H (75-99) mg/dL Calcium 7.1 L (8.4-10.2) mg/dL C-Reactive Protein (<1.0) mg/dL Procalcitonin (0.02-0.09) ng/mL Urine Protein (Negative) Urine Blood (Negative) Ur Leukocyte Esterase (Negative) Urine RBC (0-5) /hpf Urine WBC (0-5) /hpf Urine Bacteria (None) /hpf Urine Mucus (None) /hpf Urine Yeast (Budding) (None) /hpf 12/24/21 12/24/21 12/24/21 Range/Units 01:00 01:00 04:40 WBC (3.8-10.6) k/uL RBC (4.30-5.90) m/uL Hgb (13.0-17.5) gm/dL Hct (39.0-53.0) % MCV (80.0-100.0) fL MCHC (31.0-37.0) g/dL ABG pH (7.35-7.45) ABG HCO3 (21-25) mmol/L ABG O2 Saturation (94-97) % Sodium (137-145) mmol/L Potassium (3.5-5.1) mmol/L Chloride (98-107) mmol/L Carbon Dioxide (22-30) mmol/L BUN (9-20) mg/dL Creatinine (0.66-1.25) mg/dL Glucose (74-99) mg/dL POC Glucose (mg/dL) 249 H (75-99) mg/dL Calcium (8.4-10.2) mg/dL C-Reactive Protein (<1.0) mg/dL Procalcitonin 1.79 H (0.02-0.09) ng/mL Urine Protein 1+ H (Negative) Urine Blood Large H (Negative) Ur Leukocyte Esterase Large H (Negative) Urine RBC 41 H (0-5) /hpf Urine WBC 75 H (0-5) /hpf Urine Bacteria Moderate H (None) /hpf Urine Mucus Rare H (None) /hpf Urine Yeast (Budding) Many H (None) /hpf 12/24/21 12/24/21 12/24/21 Range/Units 04:40 04:45 05:46 WBC 20.3 H (3.8-10.6) k/uL RBC 2.89 L (4.30-5.90) m/uL Hgb 9.0 L (13.0-17.5) gm/dL Hct 29.3 L (39.0-53.0) % MCV 101.4 H (80.0-100.0) fL MCHC 30.7 L (31.0-37.0) g/dL ABG pH 7.26 L (7.35-7.45) ABG HCO3 18 L (21-25) mmol/L ABG O2 Saturation 97.4 H (94-97) % Sodium 136 L (137-145) mmol/L Potassium 5.5 H (3.5-5.1) mmol/L Chloride (98-107) mmol/L Carbon Dioxide 16 L (22-30) mmol/L BUN 100 H (9-20) mg/dL Creatinine 3.75 H (0.66-1.25) mg/dL Glucose 225 H (74-99) mg/dL POC Glucose (mg/dL) (75-99) mg/dL Calcium 6.8 L (8.4-10.2) mg/dL C-Reactive Protein 24.0 H (<1.0) mg/dL Procalcitonin (0.02-0.09) ng/mL Urine Protein (Negative) Urine Blood (Negative) Ur Leukocyte Esterase (Negative) Urine RBC (0-5) /hpf Urine WBC (0-5) /hpf Urine Bacteria (None) /hpf Urine Mucus (None) /hpf Urine Yeast (Budding) (None) /hpf 12/24/21 Range/Units 11:49 WBC (3.8-10.6) k/uL RBC (4.30-5.90) m/uL Hgb (13.0-17.5) gm/dL Hct (39.0-53.0) % MCV (80.0-100.0) fL MCHC (31.0-37.0) g/dL ABG pH (7.35-7.45) ABG HCO3 (21-25) mmol/L ABG O2 Saturation (94-97) % Sodium (137-145) mmol/L Potassium (3.5-5.1) mmol/L Chloride (98-107) mmol/L Carbon Dioxide (22-30) mmol/L BUN (9-20) mg/dL Creatinine (0.66-1.25) mg/dL Glucose (74-99) mg/dL POC Glucose (mg/dL) 201 H (75-99) mg/dL Calcium (8.4-10.2) mg/dL C-Reactive Protein (<1.0) mg/dL Procalcitonin (0.02-0.09) ng/mL Urine Protein (Negative) Urine Blood (Negative) Ur Leukocyte Esterase (Negative) Urine RBC (0-5) /hpf Urine WBC (0-5) /hpf Urine Bacteria (None) /hpf Urine Mucus (None) /hpf Urine Yeast (Budding) (None) /hpf Microbiology - Last 24 Hours (Table) 12/23/21 10:15 Blood Culture - Preliminary Blood No Growth after 24 hours 12/23/21 10:30 Blood Culture - Preliminary Blood No Growth after 24 hours 12/24/21 01:00 Urine Culture - Preliminary Urine,Voided Assessment and Plan (1) Sepsis Current Visit: Yes Status: Acute Code(s): A41.9 - SEPSIS, UNSPECIFIED ORGANISM SNOMED Code(s): 53061967 Plan: 1patient with sepsis/septic shock likely secondary to abdominal source in this patient who did have a laparotomy for a mechanical small bowel obstruction requiring lysis of adhesion and small bowel resection though repeat CAT scan done about 10 days still show significant dilatation and more likely abdominal source with a clinical course also complicated by development of C. difficile colitis. 2blood culture and urine culture are currently pending sputum has not been collected. 3patient to continue with vancomycin to 500 every 6 and along with IV Flagyl. 4 continue with cefepime while waiting for the culture to finalize. 5CT abdominal pelvis from the patient is hemodynamically stable to go for a CAT scan at the bedside questions concerned were answered Time with Patient: Less than 30
[2021-12-25] MEDS: FUROSEMIDE 100 MG in SODIUM CHLORIDE 0.9% 90 ML IV SCH ×6 (00:52→21:33)
[2021-12-25 00:59] LABS: Glucose,Whole Blood 232 mg/dL (75-99)
[2021-12-25] MEDS: HEPARIN SODIUM,PORCINE/PF 5,000 UNIT/0.5 ML SYRINGE SQ SCH ×4 (01:00→23:55)
[2021-12-25] MEDS: HYDROCORTISONE SUCCINATE 100 MG/2 ML VIAL IV SCH ×4 (01:00→23:55)
[2021-12-25] MEDS: INSULIN ASPART (NovoLOG) 100 UNIT/ML VIAL SQ SCH ×5 (01:00→23:55)
[2021-12-25] MEDS: metroNIDAZOLE-NS PMX 500 MG in SALINE 1 100ML.BAG IVPB SCH ×4 (01:00→23:54)
[2021-12-25] MEDS: MEXILETINE 200 MG CAP PO SCH ×4 (01:23→23:55)
[2021-12-25 04:31] LABS: HCT 26.6 % (39.0-53.0); HGB 8.3 gm/dL (13.0-17.5); Hypochromasia Marked; MCH 30.8 pg (25.0-35.0); MCHC 31.2 g/dL (31.0-37.0); MCV 98.6 fL (80.0-100.0); Mean Platelet Volume 10.1; Platelet Count 325 k/uL (150-450); RBC 2.69 m/uL (4.30-5.90); RDW 14.8 % (11.5-15.5); WBC 23.3 k/uL (3.8-10.6)
[2021-12-25 04:50] LABS: Albumin 1.9 g/dL (3.5-5.0); Magnesium 2.2 mg/dL (1.6-2.3); Potassium 5.3 mmol/L (3.5-5.1); Total Bilirubin 0.7 mg/dL (0.2-1.3); Total Protein 4.4 g/dL (6.3-8.2)
[2021-12-25 05:01] LABS: Calcium 5.7 mg/dL (8.4-10.2); Phosphorus 9.6 mg/dL (2.5-4.5)
[2021-12-25 05:35] LABS: ABG Base Excess -7.5 mmol/L; ABG HCO3 20 mmol/L (21-25); ABG Oxygen Saturation 95.2 % (94-97); ABG PCO2 44 mmHg (35-45); ABG PH 7.26 (7.35-7.45); ABG PO2 84 mmHg (83-108); ABG TCO2 21 mmol/L (19-24)
[2021-12-25 05:38] LABS: Allen Test Performed? no
--- NOTE | 2021-12-25 07:00 | XR ---
EXAMINATION TYPE: XR chest 1V portable DATE OF EXAM: 12/25/2021 5:51 AM COMPARISON:Chest radiograph from one day prior. TECHNIQUE: XR chest 1V portable Frontal view of the chest. CLINICAL INDICATION:Male, 80 years old with history of Tube placement; FINDINGS: Lungs/Pleura: Unchanged bilateral lower lung airspace opacities. There is no evidence of pleural effu satish or pneumothorax. Pulmonary vascularity: Unremarkable. Heart/mediastinum: Cardiomediastinal silhouette is unremarkable. Two lead cardiac conduction device o verlying the left hemithorax with lead tips projecting over the right ventricle and right atrium. Musculoskeletal: No acute osseous pathology. Other findings: None Lines/Tubes: Endotracheal tube with distal tip 3.5 cm above the yosi Nasogastric tube with its distal tip and side-port projecting under the diaphragm. Suspected left approach with catheter slightly limited due to overlying soft tissues and tubing. IMPRESSION: 1. Similar bilateral basilar airspace opacities. 2. Stable support lines and tubes.
[2021-12-25] MEDS: DEXTROSE 5% IN WATER 1,000 ML with SODIUM BICARB (1 MEQ/ML) 150 ML IV SCH ×2 (07:59→21:41)
[2021-12-25] MEDS: ASPIRIN 81 MG PO SCH (08:03)
[2021-12-25] MEDS: AMIODARONE 200 MG TAB PO SCH ×2 (08:03→20:48)
[2021-12-25] MEDS: CHLORHEXIDINE GLUCONATE 15 ML CUP MUCOUS MEM SCH ×2 (08:03→21:06)
[2021-12-25] MEDS: FAMOTIDINE 20 MG/2 ML VIAL IV SCH (08:03)
[2021-12-25] MEDS: SPIRONOLACTONE 25 MG TAB PO SCH (08:03)
[2021-12-25] MEDS: CEFEPIME 1 GM in SODIUM CHLORIDE 0.9% 50 ML IVPB SCH ×2 (08:04→21:06)
[2021-12-25] MEDS: NOREPINEPHRINE 32 MG in SODIUM CHLORIDE 0.9% 218 ML IV SCH (08:42)
[2021-12-25] MEDS: FINASTERIDE 5 MG TAB PO SCH (08:43)
[2021-12-25] MEDS: VANCOMYCIN ORAL SOLUTION 250 MG/5 ML BOTTLE PO SCH ×4 (08:43→21:06)
--- NOTE | 2021-12-25 08:54 | P.NPCON ---
History of Present Illness - Reason for Consult acute renal failure - Chief Complaint Acute kidney injury - History of Present Illness This is a 80-year-old male seen in consultation because of acute kidney injury. He is in ATN with good urine output and nonoliguric. Creatinine is worsening though. He is currently on small doses of dobutamine, levo fed and vasopressin. Blood pressure is stable in the 1:30 to 140 range, heart rate is 60-70 on 40% FiO2. His urine output is 2475 MLS. Currently on the ventilator. He was initially admitted abdominal pain and had exploratory laparotomy on 12/09/2021, lysis of adhesion repair of parastomal hernia for a previous colostomy. Recently also had left ureteral stone with hydronephrosis of the left which was done on 12/09/2021 He developed C. diff colitis as well as Pseudomonas UTI Past Medical History Past Medical History: Coronary Artery Disease (CAD), Cancer, COPD, Deep Vein Thr ombosis (DVT), Hyperlipidemia, Hypertension, Osteoarthritis (OA), Sleep Apnea/CPAP/BIPAP Additional Past Medical History / Comment(s): colon cancer, SKIN CANCER, colostomy, vertigo, kidney stones, states very nauseated currently, DVT 03/2021 left leg, not using CPAP, currently on Rx for UTI Last Myocardial Infarction Date:: 03/2021 History of Any Multi-Drug Resistant Organisms: None Reported Past Surgical History: Adenoidectomy, AICD, Bowel Resection, Cardiac Ablation, Heart Catheterization With Stent, Hernia Repair, Pacemaker, Tonsillectomy Additional Past Surgical History / Comment(s): colostomy, two cardiac stents, Past Anesthesia/Blood Transfusion Reactions: No Reported Reaction Additional Past Anesthesia/Blood Transfusion Reaction / Comment(s): Pt received blood in the past without reaction. Date of Last Stent Placement:: 2020 Type of Cardiac Device: AICD Device Placement Date:: 04/01/2021 Past Psychological History: No Psychological Hx Reported Smoking Status: Never smoker - Past Family History Mother Family Medical History: Cancer Additional Family Medical History / Comment(s): Breast cancer. Father Additional Family Medical History / Comment(s): Valve replacement and pacemaker. Brother(s) Family Medical History: Coronary Artery Disease (CAD) Additional Family Medical History / Comment(s): CABG. Medications and Allergies Home Medications Medication Instructions Recorded Confirmed Type Atorvastatin [Lipitor] 40 mg PO HS 05/24/16 12/08/21 History Amiodarone [Cordarone] 200 mg PO BID 06/13/21 12/08/21 History Cholecalciferol [Vitamin D3 (25 50 mcg PO DAILY@1200 06/13/21 12/08/21 History Mcg = 1000 Iu)] Clopidogrel [Plavix] 75 mg PO DAILY 06/13/21 12/08/21 History Finasteride [Proscar] 5 mg PO DAILY 06/13/21 12/08/21 History Metoprolol Tartrate [Lopressor] 12.5 mg PO BID 06/13/21 12/08/21 History Sodium Bicarbonate Tab 650 mg PO TID 06/13/21 12/08/21 History Tamsulosin [Flomax] 0.4 mg PO HS 06/13/21 12/08/21 History Apixaban [Eliquis] 5 mg PO BID 07/16/21 12/08/21 History Calcium Acetate 667 mg PO W/BRKFST 12/01/21 12/08/21 History Cephalexin [Keflex] 500 mg PO Q6HR 10 Days #40 cap 12/01/21 12/08/21 Rx HYDROcodone/APAP 5-325MG [[place] 1 tab PO Q6HR PRN 3 Days #12 tab 12/01/21 12/08/21 Rx 5-325] Spironolactone 12.5 mg PO DAILY 12/01/21 12/08/21 History calcitrioL [Rocaltrol] 0.25 mcg PO WE@1200 12/01/21 12/08/21 History Nitrofurantoin Macrocrystal 100 mg PO TID 12/07/21 12/08/21 History [Nitrofurantoin] Docusate [Colace] 300 mg PO DAILY 12/08/21 12/08/21 History Ondansetron Odt [Zofran Odt] 4 mg PO Q6H PRN 12/08/21 12/08/21 History Allergies Allergy/AdvReac Type Severity Reaction Status Date / Time No Known Allergies Allergy Verified 12/08/21 10:29 Physical Exam Vitals: Vital Signs Temp Pulse Resp BP Pulse Ox 12/25/21 07:00 66 22 100 12/25/21 06:00 68 25 H 100 12/25/21 05:00 66 22 97 12/25/21 04:00 68 15 97 12/25/21 03:00 68 25 H 99 12/25/21 02:00 68 25 H 99 12/25/21 01:00 68 16 119/53 100 12/25/21 00:00 98.1 F 68 22 99 12/24/21 23:00 67 25 H 99 12/24/21 22:00 68 27 H 99 12/24/21 21:24 70 28 H 97 12/24/21 21:00 68 23 96 12/24/21 20:00 98.7 F 69 13 114/48 95 12/24/21 19:00 69 27 H 116/53 97 12/24/21 18:00 68 23 116/53 97 12/24/21 17:00 71 26 H 116/53 97 12/24/21 16:00 98.7 F 72 22 114/53 94 L 12/24/21 15:00 75 22 104/53 95 12/24/21 14:00 76 22 108/53 95 12/24/21 13:00 77 22 104/53 95 12/24/21 12:00 78 26 H 97 12/24/21 11:00 82 29 H 129/65 95 12/24/21 10:00 78 22 119/65 99 12/24/21 09:00 79 22 129/65 100 Intake and Output 12/24/21 12/25/21 12/25/21 22:59 06:59 14:59 Intake Total 3740.218 4127 482.352 Output Total 1035 885 425 Balance 220.229 170 57.352 Intake: IV 570 785 190 Cefepime 2 gm In Sodium 100 Chloride 0.9% 100 ml @ 25 mls/hr IVPB Q12HR [facility] Rx #:[id number] Dextrose 5% in Water 1, 450 525 150 000 ml @ 75 mls/hr IV . [id number] [facility] with Sodium Bicarb (1 Meq/ml) 150 ml Rx#:[id number] Sodium Chloride 0.9% 1, 20 160 40 000 ml @ 20 mls/hr IV . Q24H [facility] Rx#:[id number] metroNIDAZOLE-NS PMX 500 100 mg In Saline 1 100ml.bag @ 100 mls/hr IVPB Q8HR [facility] Rx#:[id number] Intake, IV Titration 495.229 100 252.352 Amount Furosemide 100 mg In 100 Sodium Chloride 0.9% 90 ml @ 15 MG/HR 15 mls/hr IV .Q6H40M [facility] Rx#: [id number] Norepinephrine 32 mg In 195.229 206.277 Sodium Chloride 0.9% 218 ml @ 0.05 MCG/KG/MIN 2.18 mls/hr IV .Q24H [facility] Rx#: [id number] propofoL 1,000 mg In 200 100 46.075 Empty Bag 1 bag @ 5 MCG/ KG/MIN 2.85 mls/hr IV . Q24H [facility] Rx#:[id number] Tube Feeding 160 140 40 Other 30 30 Output: Urine 1035 885 425 Other: Voiding Method Indwelling Catheter Indwelling Catheter ABP, PAP, CO, CI - Last 8 Hours Arterial Blood Pressure 146/41 Arterial Blood Pressure 140/39 Arterial Blood Pressure 139/39 Arterial Blood Pressure 128/40 Arterial Blood Pressure 125/39 Arterial Blood Pressure 125/39 Arterial Blood Pressure 127/40 On examination his sedated on the ventilator at 40%. No facial asymmetry noted Lungs are clear to auscultation fair air entry bilaterally Heart sounds unremarkable no murmur rub gallop Abdomen soft ostomy. Extremity exam was moderate to severe edema including scrotal edema Warm Touch Results - Lab Results Most recent lab results ABG pH 7.26 (7.35-7.45) L 12/25/21 05:30 ABG pCO2 44 mmHg (35-45) 12/25/21 05:30 ABG pO2 84 mmHg (83-108) 12/25/21 05:30 ABG HCO3 20 mmol/L (21-25) L 12/25/21 05:30 ABG O2 Saturation 95.2 % (94-97) 12/25/21 05:30 Calcium 5.7 mg/dL (8.4-10.2) L* 12/25/21 04:10 Phosphorus 9.6 mg/dL (2.5-4.5) H* 12/25/21 04:10 Magnesium 2.2 mg/dL (1.6-2.3) 12/25/21 04:10 12/25/21 04:10 12/25/21 04:10 Assessment and Plan Assessment: Impression 1. ATN secondary to sepsis, nonoliguric with creatinine going up. Labs are stable enough to hold off dialysis. He is not in CHF. As he is hemodynamically getting better with less and less need for inotropic, therefore it is better to wait and see if he can resolve his acute kidney injury 2. Mild degree of gap and non-gap acidosis from a combination of acute kidney injury as well as from mild respiratory acidosis pCO2 is 44 on the ventilator 3 ventilator-dependent respiratory failure 4. UTI with pseudomonas with the stent in the ureter 5. C. diff colitis improving 6. Status post lysis of adhesion and previous colostomy and parastomal hernia repair. 7. Significant edema Anemia with hemoglobin of 8.3 Recommendation 1. Continue to wean him off of the inotropes. 2. We'll watch him and hold dialysis he has a temporary Humphrey dialysis c atheter in the right groin. 3. Continue Lasix drip
[2021-12-25] MEDS: DOBUTamine DRIP 500 MG in DEXTROSE/WATER 1 250ML.BAG IV SCH (10:47)
--- NOTE | 2021-12-25 12:07 | P.PN ---
Subjective Progress Note Date: 12/25/21 PROGRESS NOTE The patient is an 80-year-old male with known history of CAD status post stenting, cardiomyopathy him of ventricle tachycardia and ICD implantation who underwent exploratory laparotomy and colostomy. He had episode of recurrent ventricular tachycardia, has been stable after the addition of amiodarone and mexiletine. He continues to be in sinus mechanism. His blood pressure is stable. He continues to have peripheral edema but his urinary output has been stable. He denies any chest discomfort or dizziness. He is confused at times. There is no further evidence of ventricular tachycardia. His colostomy is working. He continues to be on amiodarone 400 mg twice a day, Lipitor 40 mg daily, Lasix 40 mg IV every 8 hours insulin, mexiletine 200 mg every 8 hours, spironolactone 12-1/2 mg daily December 22: The patient is more confused today, continues to be in sinus mechanism with no evidence of ventricular tachycardia or atrial fibrillation. He continues to be on dobutamine. His blood pressure is on the low side. His colostomy is functioning. He continues to have significant peripheral edema. He is receiving IV Lasix. There is no evidence of GI bleeding. In the past his ejection fraction was 40-45%, his most recent echocardiogram was suboptimal and no evaluation of his LV systolic function could be made. He continues to be on amiodarone 400 mg twice a day, mexiletine 200 mg every 8 hours, aspirin once a day in addition to Lasix 40 mg IV every 8 hours. December 23: The patient became more somnolent with respiratory distress, requiring mechanical ventilation. He is intubated and sedated. He continues to be on IV dobutamine and norepinephrine. He continues to be in sinus mechanism with no evidence of atrial or ventricular arrhythmia. An echocardiogram performed yesterday showed an ejection fraction of 45-50% with mild aortic stenosis and tricuspid regurgitation with mild pulmonary hypertension. He has good urine output but continues to have significant edema. He continues to be on amiodarone 400 mg twice a day, mexiletine 200 mg 3 times a day, Lasix 40 mg daily, Lipitor 40 mg daily, aspirin and Aldactone 12-1/2 mg daily. December 24: The patient remains intubated and sedated. He continues to be on IV dobutamine, nor epinephrine and vasopressin. His blood pressure has been stable and he continues to be in sinus mechanism. He has good urinary output but his renal functions are worse. He had no further episodes of ventricle tachycardia. He was evaluated by nephrology for possible dialysis if needed. He continues to have significant edema. His colostomy is functioning. Patient has findings suggestive of sepsis. He continues to receive TPN. He continues to be on mexiletine 200 mg 3 times a day, amiodarone 200 mg twice a day, Lipitor 40 mg daily and Aldactone 12.5 mg daily December 25: The patient remains intubated, sedated on IV Lasix drip and continues to be on vasopressor with severe peripheral edema. His urinary output has been stable. There is no further episodes of ventricular tachycardia. He continues to be on amiodarone 200 mg twice a day and mexiletine 200 mg 3 times a day. He has been evaluated for possible dialysis and that is on hold for now. PHYSICAL EXAMINATION: Intubated and sedated Blood pressure 117/50 heart rate in the 65 LUNGS: Clear to auscultation anteriorly with mild decrease breath sounds at the bases HEART: Regular rate and rhythm, S1, S2. No S3. systolic ejection murmur at the base ABDOMEN: Soft, no organomegaly, colostomy bag in place EXTREMETIES: 3+ edema with scrotal edema LAB: BUN 112, creatinine 4.36, potassium 5.3. PH 7.26, pCO2 44, pO2 84. Hemoglobin 8.3 IMPRESSION: 1. Status post exploratory laparotomy and colostomy 2. Ventricle tachycardia, stable on present regimen 3. History of coronary artery disease and cardiomyopathy. Most recent echocardiogram showed an ejection fraction of 40-45% 4. Worsening renal failure 5. Paroxysmal atrial fibrillation, now in sinus mechanism 6. Anemia 7. Third spacing with peripheral edema 8. Respiratory failure with fluid overload with decrease in mentation. Urinary output at this time stable. PLAN: 1. Continue IV Lasix 2. Wean IV pressors as tolerated 3. Stop spironolactone 4. Continue close follow-up of renal functions to decide about dialysis 5. Prognosis remains guarded. Objective - Vital Signs Vital signs: Vital Signs Temp 97.8 F 12/25/21 08:00 Pulse 60 12/25/21 11:00 Resp 26 H 12/25/21 11:00 BP 112/50 12/25/21 11:00 Pulse Ox 96 12/25/21 11:00 Intake & Output 12/24/21 12/25/21 12/25/21 18:59 06:59 18:59 Intake Total 4281.948 6439.752 784.302 Output Total 1035 1440 675 Balance 934.668 514.752 109.302 Weight 93 kg Intake: IV 870 1055 415 Cefepime 2 gm In Sodium 100 Chloride 0.9% 100 ml @ 25 mls/hr IVPB Q12HR [facility] Rx #:[id number] Dextrose 5% in Water 1, 850 675 375 000 ml @ 75 mls/hr IV . [id number] [facility] with Sodium Bicarb (1 Meq/ml) 150 ml Rx#:[id number] Sodium Chloride 0.9% 1, 20 180 40 000 ml @ 20 mls/hr IV . Q24H [facility] Rx#:[id number] metroNIDAZOLE-NS PMX 500 100 mg In Saline 1 100ml.bag @ 100 mls/hr IVPB Q8HR [facility] Rx#:[id number] Intake, IV Titration 773.668 619.752 329.302 Amount DOBUTamine DRIP 500 mg In 250 Dextrose/Water 1 250ml. bag @ 2.5 MCG/KG/MIN 6. 975 mls/hr IV .Q24H [facility] Rx#:[id number] Furosemide 100 mg In 93.167 Sodium Chloride 0.9% 90 ml @ 10 MG/HR 10 mls/hr IV .Q10H [facility] Rx#: [id number] Furosemide 100 mg In 100 Sodium Chloride 0.9% 90 ml @ 15 MG/HR 15 mls/hr IV .Q6H40M [facility] Rx#: [id number] Norepinephrine 32 mg In 380.501 69.752 206.277 Sodium Chloride 0.9% 218 ml @ 0.05 MCG/KG/MIN 2.18 mls/hr IV .Q24H [facility] Rx#: [id number] propofoL 1,000 mg In 300 200 123.025 Empty Bag 1 bag @ 5 MCG/ KG/MIN 2.85 mls/hr IV . Q24H [facility] Rx#:[id number] Tube Feeding 296 220 40 Other 30 60 Output: Urine 1035 1440 675 Other: Voiding Method Indwelling Catheter Indwelling Catheter Indwelling Catheter ABP, PAP, CO, CI - Last Documented Arterial Blood Pressure 117/40 - Labs CBC & Chem 7: 12/25/21 04:10 12/25/21 04:10 Labs: Abnormal Lab Results - Last 24 Hours (Table) 12/24/21 12/25/21 12/25/21 Range/Units 18:17 00:57 04:10 WBC 23.3 H (3.8-10.6) k/uL RBC 2.69 L (4.30-5.90) m/uL Hgb 8.3 L (13.0-17.5) gm/dL Hct 26.6 L (39.0-53.0) % ABG pH (7.35-7.45) ABG HCO3 (21-25) mmol/L Sodium (137-145) mmol/L Potassium (3.5-5.1) mmol/L Carbon Dioxide (22-30) mmol/L BUN (9-20) mg/dL Creatinine (0.66-1.25) mg/dL Glucose (74-99) mg/dL POC Glucose (mg/dL) 241 H 232 H (75-99) mg/dL Calcium (8.4-10.2) mg/dL Phosphorus (2.5-4.5) mg/dL Alkaline Phosphatase (38-126) U/L Total Protein (6.3-8.2) g/dL Albumin (3.5-5.0) g/dL 12/25/21 12/25/21 Range/Units 04:10 05:30 WBC (3.8-10.6) k/uL RBC (4.30-5.90) m/uL Hgb (13.0-17.5) gm/dL Hct (39.0-53.0) % ABG pH 7.26 L (7.35-7.45) ABG HCO3 20 L (21-25) mmol/L Sodium 135 L (137-145) mmol/L Potassium 5.3 H (3.5-5.1) mmol/L Carbon Dioxide 17 L (22-30) mmol/L BUN 112 H* (9-20) mg/dL Creatinine 4.36 H (0.66-1.25) mg/dL Glucose 214 H (74-99) mg/dL POC Glucose (mg/dL) (75-99) mg/dL Calcium 5.7 L* (8.4-10.2) mg/dL Phosphorus 9.6 H* (2.5-4.5) mg/dL Alkaline Phosphatase 136 H (38-126) U/L Total Protein 4.4 L (6.3-8.2) g/dL Albumin 1.9 L (3.5-5.0) g/dL Microbiology - Last 24 Hours (Table) 12/24/21 16:53 Gram Stain - Preliminary Sputum Sputum Culture - Preliminary Irma albicans 12/23/21 10:15 Blood Culture - Preliminary Blood No Growth after 24 hours 12/23/21 10:30 Blood Culture - Preliminary Blood No Growth after 24 hours 12/24/21 01:00 Urine Culture - Preliminary Urine,Voided
--- NOTE | 2021-12-25 12:08 | P.PN ---
Subjective Progress Note Date: 12/25/21 Principal diagnosis: Status post exploratory laparotomy, lysis of adhesions, repair of peristomal hernia, small bowel resection on 12/09/2021. On 12/20/2021 patient seen in follow-up in intensive care unit, he is awake and alert, appears to be tachypneic, short of breath at rest, and with any conversation. He is on 4 L of oxygen with a pulse ox of 91%, and subsequently his flow was increased to 5 L in view of worsening dyspnea, patient is postoperative day #11, status post exploratory laparotomy, lysis of adhesions, repair of parastomal hernia, small bowel resection on 12/09/2021. His NG tube has been discontinued however patient is having somewhat of a hard time swallo wing, he is coughing at times, bringing up some yellowish colored phlegm, his Zosyn was discontinued, his colostomy is producing liquid brown stool. Patient was afebrile overnight, but generally he appears to be quite significantly fluid overloaded, he remains on Lasix 40 mg twice daily. He was in positive 1500 mL net fluid balance over the last 24 hours. His chest x-ray today showing hypoventilatory changes and patchy airspace disease at the periphery of the right base and at the retrocardiac region at the left base. The possibility of infectious etiology is being considered. No fever or chills overnight. His abdominal incision is draining moderate amount of serous output, midportion of the incision is packed with silver ion packing. Generally patient has significant anasarca, third spacing and received 4 doses of 25% albumin. Today's labs have been reviewed, with blood cell count is elevated but improved and is down to 25.7, hemoglobin is 10.3, sodium is 135, potassium is 4.5, chloride is 107, CO2 is 19, B1 is 65, creatinine is 1.93. LFTs are improved. On 12/21/2021 patient seen in follow-up in the intensive care unit. Still quite dyspneic, tachypneic, he was placed on CPAP support today with a pressure of 10 cm of water, and FiO2 currently is at 60%. His pulse ox is 96%, tolerating CPAP support well, still tachypneic, he is achieving tidal volumes of 799, his res piratory rate is 25-33, minute ventilation is 28 L/m. Remains on Lasix of 40 mg every 8 hours. She was started on Dobutrex at 2.5 mics per kilo per minute. Patient is again in +2 L net fluid balance over the last 24 hours. He has generalized edema in his upper and lower extremities, torso. Urine output is a new order off 85-100 ML per hour. Patient continues on TPN at 75 ML per hour. Today's chest x-ray showing cardiomegaly with left greater than right increasing opacities suggesting worsening pulmonary edema and/or infiltrate. Patient remains on Zosyn, his urine culture was positive for pseudomonas. Afebrile overnight. His blood pressures are marginal, was systolic in the 70s and 80s and occasionally in the 90s, with diastolic in the 50s and the mean of 55-65. Abdomen is nontender, his colostomy is producing some liquid stool, he remains on oral vancomycin for C. diff colitis. A total of 200 mL in liquid output from his colostomy in the last 24 hours. Today's labs have been reviewed, there is improvement in his white blood cell count which is down to 15.6, hemoglobin is 8.2, platelet count is 231, sodium is 137, potassium is 4.4, chloride is 108, CO2 is 21, BUN is 77, creatinine is 2.4 200 today's labs. Reevaluated today on 12/22/2021, patient has been gradually getting worse over the last 24 hours, last night the patient was developing more agitation, and he was on BiPAP at one point, later transitioned to a nonrebreather mask, O2 saturations remained marginal. Patient was placed on Precedex for his agitation, and when I evaluated the patient this morning, patient seemed to be in worsening respiratory distress. ABG was marginal at best. On a nonrebreath er mask, his pO2 was only 61 pCO2 34 pH of 7.40. Patient was noted to be tachypneic tachycardic, and extremely agitated. Chest x-ray showed evidence of worsening increased lung markings and pulmonary vasculature markings suggestive of pulmonary edema, underlying pneumonia is not entirely ruled out. Patient has been diuresing well and his renal functioning has been getting a bit worse. He has been receiving Lasix 40 mg IV push every 8 hours and is also on Dobutrex at 5 mcg/kg/m. Blood pressure has been marginal and he required placement on norepinephrine this morning. Yesterday I made the family aware including his and his son about his condition, and I explained to them that he may end up requiring intubation and mechanical ventilation. Indeed this morning the patient clearly needs to be intubated and mechanically ventilated, and my clinical judgment was to proceed with intubating the patient and placing the patient on mechanical ventilation in the meantime continue hemodynamic support, continue antibiotics, continue inotropic support, echocardiogram which was ordered by cardiology is pending this morning. Post intubation his ABG showed a pO2 of 190 pCO2 42 pH of 7.31, hence the patient was placed on FiO2 of 50%, tidal volume is 450 rate of 22 and PEEP of 5. CBC today showed WBC of 10.1 hemoglobin is 8 and platelets 181,000. Medication [place] patient remains on Tyl enol, amiodarone orally twice a day, Lipitor, Peridex, Pepcid, dobutamine which I cut down to 2.5 mcg/kg/m, Pepcid, TPN, Proscar, Lasix 40 mg cut down from 3 times a day to once daily patient is now on propofol drip and he is also on Dilaudid when necessary remains on Zosyn and he is requiring norepinephrine for marginal low blood pressure. Patient was reevaluated today on 12/23/2021, remains in the ICU, remains critically ill, patient required intubation and mechanical ventilation yesterday. He is now on tidal volume of 450 assist control rate of 22 FiO2 50% I cut it down to 45% and his PEEP is at 5. ABG this morning showed a pO2 of 137 pCO2 of 38 pH of 7.28, hence I started the patient today on a bicarb drip. At 50 mL per hour. I cut down his FiO2 to 45%. Patient is requiring more pressors he is basically maximized on norepinephrine at 1 mcg/kg/m, he is on Dobutrex at 5 mcg/kg/m receiving vasopressin at 0.03 units per minutes. Blood pressure remains marginal. Patient remains quite edematous and he seems to be third spacing with significant edema in upper and lower extremities. Chest x-ray continues showed bilateral interstitial edema/infiltrates. Not much of a tire changer the last 24 hours. Although his oxygenation is improving. Patient is still receiving antibiotics in the form of Zosyn, day considering the patient had only one urine culture that showed pseudomonas, I added cefepime at the patient seems to be septic and he is developing what looks like a septic shock. Blood cultures were ordered. Patient remains on oral vancomycin for C. difficile colitis. And he is on vital AF at 20 mL per hour. His ostomy seems to be functioning well. Reevaluated today on 12/24/2021. Patient remains intubated and mechanically ventilated. He is now on assist control rate of 22 tidal volume of 450 FiO2 45% and PEEP of 5. ABG showed a pO2 of 107 pCO2 41 pH of 7.26. Patient remains on bicarb drip, and I increased the bicarb drip to 75 mL per hour instead of 50 mL per hour. Patient remains on multiple drips including sodium bicarb drip, norepinephrine at 0.7 vasopressin at 0.04 Lasix at 10 mg per hour patient is on dobutamine at 5 mcg/kg/m and I cut it down to 2.5 he is also on propofol at 15 mcg/kg/m vasopressin at 0.04. His IV fluids at 50 mL per hour. Patient is receiving vital AF at 48 mL per hour. Chest x-ray continues to show evidence of bilateral interstitial edema/infiltrates, his urine output seems to be excellent he is putting out over 1 50 mL per hour, however his renal status seems to be a bit worse. His electrolytes showed hyperkalemia with a potassium of 5.5 bicarb is 16 but that will improve with increasing the bicarb drip. BUN is 100 creatinine 3.75. Family was updated on his condition yesterday, and the CODE STATUS was changed to DO NOT RESUSCITATE. Continues to have leukocytosis with WBC count of 20.3 hemoglobin is 9. Continue blood cultures and urine cultures are pending. In the meantime the patient is on Zosyn and cefepime for his Pseudomonas infection in the urine which was diagnosed back on 12/08 Patient was reevaluated today on 12/25/2021. Remains in the ICU intubated and mechanically ventilated. He is on assist control rate of 22 tidal volume 450 FiO2 40% PEEP of 5 however his rate was increased to 26, ABG showed a pO2 of 84 pCO2 of 44 pH of 7.26 his renal functioning seems to be worse today, BUN is up to 112 creatinine is 4.36. Seen by nephrology on consultation, and patient is now on vasopressin drip at 10 mg per hour. Continues to have leukocytosis with WBC of 43.3 hemoglobin is 8.3, blood cultures done recently are negative urine culture remains negative sputum is showing Irma albicans., Chest x-ray continues to show by basilar airspace disease, improving overall compared to the x-rays a few days ago. Patient remains on multiple drips including norepinephrine at 0.3 micrograms per kilo per minute, is on vasopressin at 0.04. Dobutamine at 2.5 mcg/kg/m propofol at 50 mcg/kg/m remains on bicarb drip at 75 mL/h and now he is on Lasix drip. Likely I don't believe there is much impr ovement in the last 24 hours, patient continues to have good urine output, and he is being considered for hemodialysis. As a matter of fact the patient did have dialysis catheter placement yesterday in the right groin done by vascular surgery Objective - Vital Signs Vital signs: Vital Signs Temp 97.8 F 12/25/21 08:00 Pulse 60 12/25/21 11:00 Resp 26 H 12/25/21 11:00 BP 112/50 12/25/21 11:00 Pulse Ox 96 12/25/21 11:00 Intake & Output 12/24/21 12/25/21 12/25/21 18:59 06:59 18:59 Intake Total 1160.729 6646.752 784.302 Output Total 1035 1440 675 Balance 934.668 514.752 109.302 Weight 93 kg Intake: IV 870 1055 415 Cefepime 2 gm In Sodium 100 Chloride 0.9% 100 ml @ 25 mls/hr IVPB Q12HR [facility] Rx #:[id number] Dextrose 5% in Water 1, 850 675 375 000 ml @ 75 mls/hr IV . [id number] [facility] with Sodium Bicarb (1 Meq/ml) 150 ml Rx#:[id number] Sodium Chloride 0.9% 1, 20 180 40 000 ml @ 20 mls/hr IV . Q24H [facility] Rx#:[id number] metroNIDAZOLE-NS PMX 500 100 mg In Saline 1 100ml.bag @ 100 mls/hr IVPB Q8HR [facility] Rx#:[id number] Intake, IV Titration 773.668 619.752 329.302 Amount DOBUTamine DRIP 500 mg In 250 Dextrose/Water 1 250ml. bag @ 2.5 MCG/KG/MIN 6. 975 mls/hr IV .Q24H [facility] Rx#:[id number] Furosemide 100 mg In 93.167 Sodium Chloride 0.9% 90 ml @ 10 MG/HR 10 mls/hr IV .Q10H [facility] Rx#: [id number] Furosemide 100 mg In 100 Sodium Chloride 0.9% 90 ml @ 15 MG/HR 15 mls/hr IV .Q6H40M [facility] Rx#: [id number] Norepinephrine 32 mg In 380.501 69.752 206.277 Sodium Chloride 0.9% 218 ml @ 0.05 MCG/KG/MIN 2.18 mls/hr IV .Q24H [facility] Rx#: [id number] propofoL 1,000 mg In 300 200 123.025 Empty Bag 1 bag @ 5 MCG/ KG/MIN 2.85 mls/hr IV . Q24H [facility] Rx#:[id number] Tube Feeding 296 220 40 Other 30 60 Output: Urine 1035 1440 675 Other: Voiding Method Indwelling Catheter Indwelling Catheter Indwelling Catheter ABP, PAP, CO, CI - Last Documented Arterial Blood Pressure 117/40 - Exam GENERAL EXAM: Revealed 80-year-old white male, intubated, fully sedated. HEAD: Normocephalic/atraumatic. Orogastric tube and endotracheal tube are intact. EYES: Normal reaction of pupils, equal size. Conjunctiva pink, sclera white. NOSE: Clear with pink turbinates. NECK: Supple, no neck masses no JVD. CHEST: Symmetrical chest expansion noted deformity. LUNGS: Crackles at the bases. No rhonchi and no wheezes. CVS: Distant S1 and S2, no S3 gallop, 2/6 systolic murmur thought the precordium. ABDOMEN: Soft, nontender. No hepatosplenomegaly, normal bowel sounds, no guarding or rigidity. Midabdominal incision is draining moderate to large amount of serous output, shant are in place, colostomy seems to be functional. EXTREMITIES: No clubbing, 3+ bipedal edema, no cyanosis. MUSCULOSKELETAL: No deformities. Could not assess motion. SKIN: No rashes CENTRAL NERVOUS SYSTEM: Could not assess, patient is sedated. PSYCHIATRIC: Could not assess. - Labs CBC & Chem 7: 12/25/21 04:10 12/25/21 04:10 Labs: Abnormal Lab Results - Last 24 Hours (Table) 12/24/21 12/25/21 12/25/21 Range/Units 18:17 00:57 04:10 WBC 23.3 H (3.8-10.6) k/uL RBC 2.69 L (4.30-5.90) m/uL Hgb 8.3 L (13.0-17.5) gm/dL Hct 26.6 L (39.0-53.0) % ABG pH (7.35-7.45) ABG HCO3 (21-25) mmol/L Sodium (137-145) mmol/L Potassium (3.5-5.1) mmol/L Carbon Dioxide (22-30) mmol/L BUN (9-20) mg/dL Creatinine (0.66-1.25) mg/dL Glucose (74-99) mg/dL POC Glucose (mg/dL) 241 H 232 H (75-99) mg/dL Calcium (8.4-10.2) mg/dL Phosphorus (2.5-4.5) mg/dL Alkaline Phosphatase (38-126) U/L Total Protein (6.3-8.2) g/dL Albumin (3.5-5.0) g/dL 12/25/21 12/25/21 Range/Units 04:10 05:30 WBC (3.8-10.6) k/uL RBC (4.30-5.90) m/uL Hgb (13.0-17.5) gm/dL Hct (39.0-53.0) % ABG pH 7.26 L (7.35-7.45) ABG HCO3 20 L (21-25) mmol/L Sodium 135 L (137-145) mmol/L Potassium 5.3 H (3.5-5.1) mmol/L Carbon Dioxide 17 L (22-30) mmol/L BUN 112 H* (9-20) mg/dL Creatinine 4.36 H (0.66-1.25) mg/dL Glucose 214 H (74-99) mg/dL POC Glucose (mg/dL) (75-99) mg/dL Calcium 5.7 L* (8.4-10.2) mg/dL Phosphorus 9.6 H* (2.5-4.5) mg/dL Alkaline Phosphatase 136 H (38-126) U/L Total Protein 4.4 L (6.3-8.2) g/dL Albumin 1.9 L (3.5-5.0) g/dL Microbiology - Last 24 Hours (Table) 12/24/21 16:53 Gram Stain - Preliminary Sputum Sputum Culture - Preliminary Irma albicans 12/23/21 10:15 Blood Culture - Preliminary Blood No Growth after 24 hours 12/23/21 10:30 Blood Culture - Preliminary Blood No Growth after 24 hours 12/24/21 01:00 Urine Culture - Preliminary Urine,Voided Assessment and Plan Assessment: Impression: Acute hypoxic respiratory failure, multifactorial requiring intubation and mechanical ventilation on 12/22/2021. Mostly related to acute on chronic systolic congestive heart failure and aspiration pneumonia is strongly suspected. Considering the patient is requiring significant amount of pressors, I'm also suspecting that we may be dealing with sepsis and septic shock. Repeat urine cultures and repeat blood cultures are pending. In the meantime the patient remains on Zosyn and on cefepime. Status post exploratory laparotomy, lysis of adhesions, repair of peristomal hernia, bowel resection on 12/09/2021. Postoperative day #16 Acute urinary tract infection secondary to pseudomonas aeruginosa and history of right sided hydronephrosis. Urine cultures repeated are negative C. difficile colitis, on oral vancomycin. septic shock. Requiring pressors Ischemic cardiomyopathy and LV dysfunction history of AICD placement and ablation for ventricular tachycardia. Asked ejection fraction was noted to be 45%. Cholelithiasis. Acute on chronic kidney injury, followed by nephrology. On Lasix drip and being considered for hemodialysis. History of coronary artery disease and previous stent placement History of nonsustained ventricular tachycardia and review his ablation as well as AICD placement History of obstructive sleep apnea syndrome Benign essential hypertension History of colon cancer with previous colectomy and colostomy History of deep vein thrombosis Paroxysmal atrial fibrillation Hypoalbuminemia/hypoproteinemia. Recommendation: Continue ventilatory support Continue Lasix drip. Continue bicarbonate drip. Solu-Cortef to 50 mg every 6 hours. Continue norepinephrine and vasopressin. Titrate pressors accordingly Continue dobutamine. 2.5 mcg/kg/m Continue antibiotics/Zosyn, added cefepime for now. Continue TPN. Nutritional support. Continue GI and DVT prophylaxis. Continue to monitor renal status Updated the family on his condition Critical care time is over 30 minutes, remains critically ill Overall prognosis remains extremely poor and guarded. Discussed his condition with all other consultants on the case We will continue to follow. Time with Patient: Greater than 30
[2021-12-25 12:14] LABS: Glucose,Whole Blood 215 mg/dL (75-99)
--- NOTE | 2021-12-25 15:01 | XR ---
EXAMINATION TYPE: XR KUB DATE OF EXAM: 12/25/2021 COMPARISON: 12/08/2021 HISTORY: Abdominal pain TECHNIQUE: FINDINGS: 2 view supine were obtained. There are multiple dilated loops of bowel throughout the abdom en. This involves mainly the small bowel. There is gas-filled distended transverse colon. No evidence of free air. There is left-sided ureteral stent. There are skin shant over the midline abdomen. IMPRESSION: Dilated large and small bowel consistent with ileus. Mechanical obstruction not excluded. Small bowel distention is the same or slightly improved compared to last exam.
--- NOTE | 2021-12-25 15:19 | P.PN ---
Subjective Progress Note Date: 12/25/21 CHIEF COMPLAINT: Bowel obstruction HISTORY OF PRESENT ILLNESS: The patient is a 80-year-old male who presented with obstruction due to parastomal hernia. He is status post bowel resection, lysis of adhesions and parastomal hernia repair, 12/09/2021. Patient remains in intensive care unit. Patient remains intubated, sedated and on multiple pressors and in critical care condition. Discussion with hospitalist including nursing confirmed patient in multiple system organ failure. He is on multiple vasopressors unable to tolerate dialysis. and family at bedside. Patient has C. diff. Additionally, patient with ileus not tolerating tube feeds. ROS: Current hospitalization with sustained ventricular tachyarrhythmia. Has diarrhea due to Clostridium difficile. Has atrial fibrillation. In acute renal failure. PHYSICAL EXAM: VITAL SIGNS: Reviewed CONSTITUTIONAL: Well developed and in no acute distress. EYES: Conjuctivae without sclera icterus. HEAD, EARS, NOSE, THROAT: Moist buccal mucosa. Head is atraumatic, normocephalic. RESPIRATORY: Non-labored respirations and equal bilateral excursions. On full mechanical ventilatory support. CARDIOVASCULAR: Irregular rate. Irregular rhythm. ABDOMEN: Ostomy patent. MUSCULOSKELETAL: No clubbing. No edema of the upper extremities. SKIN: Perfused. NEUROLOGIC: Cranial nerves II through XII grossly intact. No focal or lateralizing signs. PSYCH: Intubated and sedated. CLINICAL LABS: Reviewed. WBC trending up from over 20,000 to over 23,000. STUDIES: Abdominal x-ray independentlt reviewed demonstrating presence of ileus. This is my independent interpretation. ASSESSMENT: 1. Septic shock 2. Multisystem organ failure 3. Acute renal failure with need for dialysis 4. History of colon cancer with colostomy 5. Respiratory ventilatory failure 6. Atrial fibrillation 7. Clostridium difficile PLAN: 1. Discussion of palliative care options described to the patient's family. Palliative care consult pending. 2. Patient presently no code. 3. Condition overall poor. 4. Patient has C. diff. Options including vancomycin per ostomy reviewed. 5. Palliative care including end-of-life options discussed over 20 minutes with family at bedside. Objective - Vital Signs Vital signs: Vital Signs Temp 98.2 F 12/25/21 12:00 Pulse 60 12/25/21 15:00 Resp 26 H 12/25/21 15:00 BP 101/50 12/25/21 15:00 Pulse Ox 97 12/25/21 15:00 Intake & Output 12/24/21 12/25/21 12/25/21 18:59 06:59 18:59 Intake Total 9019.156 3342.752 1322.302 Output Total 1035 1440 980 Balance 934.668 514.752 342.302 Weight 93 kg Intake: IV 870 1055 715 Cefepime 2 gm In Sodium 100 Chloride 0.9% 100 ml @ 25 mls/hr IVPB Q12HR [facility] Rx #:[id number] Dextrose 5% in Water 1, 850 675 675 000 ml @ 75 mls/hr IV . [id number] [facility] with Sodium Bicarb (1 Meq/ml) 150 ml Rx#:[id number] Sodium Chloride 0.9% 1, 20 180 40 000 ml @ 20 mls/hr IV . Q24H [facility] Rx#:[id number] metroNIDAZOLE-NS PMX 500 100 mg In Saline 1 100ml.bag @ 100 mls/hr IVPB Q8HR [facility] Rx#:[id number] Intake, IV Titration 773.668 619.752 567.302 Amount DOBUTamine DRIP 500 mg In 250 Dextrose/Water 1 250ml. bag @ 2.5 MCG/KG/MIN 6. 975 mls/hr IV .Q24H [facility] Rx#:[id number] Furosemide 100 mg In 93.167 Sodium Chloride 0.9% 90 ml @ 10 MG/HR 10 mls/hr IV .Q10H [facility] Rx#: [id number] Furosemide 100 mg In 100 138 Sodium Chloride 0.9% 90 ml @ 15 MG/HR 15 mls/hr IV .Q6H40M [facility] Rx#: [id number] Norepinephrine 32 mg In 380.501 69.752 206.277 Sodium Chloride 0.9% 218 ml @ 0.05 MCG/KG/MIN 2.18 mls/hr IV .Q24H [facility] Rx#: [id number] propofoL 1,000 mg In 300 200 223.025 Empty Bag 1 bag @ 5 MCG/ KG/MIN 2.85 mls/hr IV . Q24H [facility] Rx#:[id number] Tube Feeding 296 220 40 Other 30 60 Output: Urine 1035 1440 980 Other: Voiding Method Indwelling Catheter Indwelling Catheter Indwelling Catheter ABP, PAP, CO, CI - Last Documented Arterial Blood Pressure 125/38 - Labs CBC & Chem 7: 12/25/21 04:10 12/25/21 04:10 Labs: Abnormal Lab Results - Last 24 Hours (Table) 12/24/21 12/25/21 12/25/21 Range/Units 18:17 00:57 04:10 WBC 23.3 H (3.8-10.6) k/uL RBC 2.69 L (4.30-5.90) m/uL Hgb 8.3 L (13.0-17.5) gm/dL Hct 26.6 L (39.0-53.0) % ABG pH (7.35-7.45) ABG HCO3 (21-25) mmol/L Sodium (137-145) mmol/L Potassium (3.5-5.1) mmol/L Carbon Dioxide (22-30) mmol/L BUN (9-20) mg/dL Creatinine (0.66-1.25) mg/dL Glucose (74-99) mg/dL POC Glucose (mg/dL) 241 H 232 H (75-99) mg/dL Calcium (8.4-10.2) mg/dL Phosphorus (2.5-4.5) mg/dL Alkaline Phosphatase (38-126) U/L Total Protein (6.3-8.2) g/dL Albumin (3.5-5.0) g/dL 12/25/21 12/25/21 12/25/21 Range/Units 04:10 05:30 12:02 WBC (3.8-10.6) k/uL RBC (4.30-5.90) m/uL Hgb (13.0-17.5) gm/dL Hct (39.0-53.0) % ABG pH 7.26 L (7.35-7.45) ABG HCO3 20 L (21-25) mmol/L Sodium 135 L (137-145) mmol/L Potassium 5.3 H (3.5-5.1) mmol/L Carbon Dioxide 17 L (22-30) mmol/L BUN 112 H* (9-20) mg/dL Creatinine 4.36 H (0.66-1.25) mg/dL Glucose 214 H (74-99) mg/dL POC Glucose (mg/dL) 215 H (75-99) mg/dL Calcium 5.7 L* (8.4-10.2) mg/dL Phosphorus 9.6 H* (2.5-4.5) mg/dL Alkaline Phosphatase 136 H (38-126) U/L Total Protein 4.4 L (6.3-8.2) g/dL Albumin 1.9 L (3.5-5.0) g/dL Microbiology - Last 24 Hours (Table) 12/23/21 10:15 Blood Culture - Preliminary Blood No Growth after 48 hours 12/23/21 10:30 Blood Culture - Preliminary Blood No Growth after 48 hours 12/24/21 01:00 Urine Culture - Preliminary Urine,Voided Yeast species 12/24/21 16:53 Gram Stain - Preliminary Sputum Sputum Culture - Preliminary Imra albicans Assessment and Plan (1) Septic shock Current Visit: Yes Status: Acute Code(s): A41.9 - SEPSIS, UNSPECIFIED OR GANISM; R65.21 - SEVERE SEPSIS WITH SEPTIC SHOCK SNOMED Code(s): 52824666 (2) Atrial fibrillation Current Visit: Yes Status: Acute Code(s): I48.91 - UNSPECIFIED ATRIAL FIBRILLATION SNOMED Code(s): 27150889 (3) Clostridium difficile colitis Current Visit: Yes Status: Acute Code(s): A04.72 - ENTEROCOLITIS D/T CLOSTRIDIUM DIFFICILE, NOT SPCF RECUR SNOMED Code(s): 484637821 (4) Respiratory failure Current Visit: Yes Status: Acute Code(s): J96.90 - RESPIRATORY FAILURE, UNSP, UNSP W HYPOXIA OR HYPERCAPNIA SNOMED Code(s): 821429484 (5) SBO (small bowel obstruction) Current Visit: Yes Status: Acute Code(s): K56.609 - UNSP INTESTNL OBST, UNSP TO PARTIAL VERSUS COMPLETE OBST SNOMED Code(s): 509153648 (6) Sepsis Current Visit: Yes Status: Acute Code(s): A41.9 - SEPSIS, UNSPECIFIED ORGANISM SNOMED Code(s): 92135356 (7) CHF (congestive heart failure) Current Visit: No Status: Acute Code(s): I50.9 - HEART FAILURE, UNSPECIFIED SNOMED Code(s): 12901416
--- NOTE | 2021-12-25 15:20 | P.PN ---
Subjective Progress Note Date: 12/25/21 Principal diagnosis: intractable nausea and vomiting 80-year-old male with known colorectal cancer status post colostomy 21 years ago, coronary artery disease, hypertension, dyslipidemia, and multiple other comorbid conditions who initially presented to hospital with complaints of intractable nausea and vomiting. He had initially presented to the ER approximately 6 days before admission and was discharged home. On re- presentation he was found have a urinary tract infection with sepsis and possible small bowel obstruction. He was started on IV Rocephin and Flagyl along with IV fluids. Urology was consulted. He underwent stent placement with urology due to left distal obstructing calculi with moderate hydronephrosis. He also underwent exploratory laparotomy with lysis of adhesions and repair of periosteal hernia with small bowel resection. Patient's urine came back positive for Pseudomonas and he was treated with 5 days of IV antibiotics. He initially had progressed well but then had several setbacks. During his hospital stay he was found have cardiomyopathy. He then developed C. diff and became septic again. From 12/20 through 12/22 patient was gradually getting worse, more agitated, and requiring more oxygen support. He was also placed on Precedex to help with agitation. He was subsequently reintubated on 12/22. He required vasopressor support. His antibiotics were broadened and he was seen by nephrology and ID due to recurrent sepsis and worsening renal function. He had a temporary HD cath placed on 12/24. He continued to decline. Imaging: KUB 12/08-dilated small bowel measuring up to 6.4 cm suspect distal small bowel obstruction. CT abdomen and pelvis 12/08-acute high-grade mechanical small bowel obstruction with a transition point in the left lower quadrant peristomal hernia, persistent left distal ureter obstructing calculi with moderate left-sided hydroureter and hydronephrosis. Liver ultrasound 12/11-cholelithiasis with distended gallbladder possibly indicating acute cholecystitis, renal stone with mild to moderate hydronephrosis Echo 12/13- poor study unable to calculate EF CT abdomen and pelvis 12/13: Left lower quadrant peristomal hernia currently 9 cm wide with hernia sac containing some redundant sigmoid colon, diffuse dilated proximal and mid small bowel NG tube is lupus and is moderate-sized hiatal hernia and contrast baths of the esophagus, few tiny foci of free air in the right upper quadrant and pelvis, generalized anasarca, small to moderate pleural effusions bilaterally, left ureteric stent, hydropic gallbladder with cholelithiasis Echo 12/22- EF 45-50%, severely enlarged RV, Procedures: Left ureteroscopy with balloon dilation of the left distal ureter with stent placement and cystoscopy 12/09 Exploratory laparotomy with lysis of adhesion and repair of parastomal hernia and small bowel resection 12/09 Left subclavian triple-lumen catheter placed 12/12 Artline 12/22 Patient unresponsive on vent. Per nursing they were able to come down on vasopressors, no HD today due to tenuous blood pressures. General: Ill appearing, maximal distress, appears older than stated age Derm: warm, dry Head: atraumatic, normocephalic, symmetric Eyes: EOMI, no lid lag, anicteric sclera Mouth: no lip lesion, mucus membranes moist Cardiovascular: S1S2 reg, no murmur, positive posterior tibial pulse bilateral, Lungs: Course bs bilateral, no rhonchi, no rales , no accessory muscle use, on vent Abdominal: soft, nontender to palpation, no guarding, no appreciable organomegaly Ext: no gross muscle atrophy, diffuse anasarca , no contractures Neuro: PERRL, Breathing over the vent, Psych: Intubated and sedated Assessment/plan: Urinary tract infection, complicated with pseudomonas and septic shock Obstructive uropathy status post stent placement 12/09 Small bowel obstruction Acute cholecystitis GI bleeding due to C diff with anticoagulation Acute hypoxic respiratory failure, possible underlying aspiration pneumonia -Patient completed antibiotics for UTI on 12/16 with Zosyn, - ID recs appreciated- cefepime -Urology recommendations appreciated: Needs outpatient follow-up, flomax -General surgery recommendations: On TPN - continue with levophed, vaso - Critical care recs appreciated: managing gabriel - stress dose steroids Ileus - check x-ray SHITAL on CKD 3 baseline Cr 2 Hyperkalemia - Follow Cr closely - Nephrology recs appreciated, HD cath in place but not a candidate at this time - Lasix gtt - likely multifactorial - on bicarb gtt Acute exacerbation systolic 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 fib - Cardiology recommendations - Amiodarone, mexelitine - Dobutamine - On aldactone - Lasix gtt - strict I's and O's, daily weights - Telemetry C. diff infection -On oral vancomycin, IV flagyl - ID recs Acute blood loss anemia -Status post packed red blood cells on 12/16 Severe protein calorie malnutrition -On TPN Hyperglycemia -Continue with sliding scale insulin and Levemir 15 units at night -Follow blood sugars -Hemoglobin A1c 5.7, will need repeat in 3 months Coronary artery disease status post stenting -Aspirin -Lipitor Hyperlipidemia Essential hypertension DNR DVT prophylaxis: Heparin Anticipated discharge: undetermined Anticipated discharge place: undetermined A total of 25 minutes was spent on the care of this complex patient more than 50% of the time was spent in counseling and care coordination. Active Medications Generic Name Dose Route Start Last Admin Trade Name Freq PRN Reason Stop Dose Admin Acetaminophen 650 mg 12/15/21 10:16 12/15/21 11:56 Acetaminophen Tab 325 Mg Tab PO 650 mg Q6HR PRN Administration Fever and/ or MILD Pain Hydrocodone Bitart/Acetaminophen 1 each 12/09/21 23:32 Hydrocodone/Apap 7.5-325mg 1 Each Tab PO Q6H PRN MODERATE Pain Amiodarone HCl 200 mg 12/23/21 09:00 12/25/21 08:03 Amiodarone 200 Mg Tab PO 200 mg BID ANGEL[facility] Administration Aspirin 81 mg 12/21/21 09:00 12/25/21 08:03 Aspirin 81 Mg PO 81 mg DAILY ANGELITA Administration Atorvastatin Calcium 40 mg 12/08/21 21:00 12/24/21 20:51 Atorvastatin 40 Mg Tab PO 40 mg HS ANGELITA Administration Chlorhexidine Gluconate 15 ml 12/22/21 09:30 12/25/21 08:03 Chlorhexidine Gluconate 15 Ml Cup MUCOUS MEM 15 ml BID ANGELITA Administration Famotidine 20 mg 12/10/21 13:30 12/25/21 08:03 Famotidine 20 Mg/2 Ml Vial IV 20 mg DAILY ANGEL[facility] Administration Finasteride 5 mg 12/09/21 09:00 12/25/21 08:43 Finasteride 5 Mg Tab PO 5 mg DAILY ANGELITA Administration Heparin Sodium (Porcine) 5,000 unit 12/23/21 16:00 12/25/21 08:01 Heparin Sodium,Porcine/Pf 5,000 Unit/0.5 Ml Syringe SQ 5,000 unit Q8HR [facility] Administration Hydrocortisone Sodium Succinate 100 mg 12/23/21 16:00 12/25/21 08:01 Hydrocortisone Succinate 100 Mg/2 Ml Vial IV 100 mg Q8HR ANG[facility] Administration Hydromorphone HCl 1 mg 12/21/21 14:51 12/22/21 06:14 Hydromorphone 1 Mg/Ml 1 Ml Syringe IVP 1 mg Q2H PRN Administration Breakthrough Pain Sodium Chloride 1,000 mls @ 20 mls/hr 12/14/21 09:45 12/24/21 15:08 Saline 0.9% IV 20 mls/hr .Q24H [facility] Administration Dobutamine HCl/Dextrose 500 mg 250 mls @ 6.975 mls/hr 12/21/21 09:15 12/25/21 10:47 / IV Solution IV 2.5 mcg/kg/min .Q24H [facility] 6.975 mls/hr Administration 2.5 MCG/KG/MIN Propofol 1,000 mg/ IV Solution 100 mls @ 2.85 mls/hr 12/22/21 09:30 12/25/21 10:46 IV 50 mcg/kg/min .Q24H [facility] 28.5 mls/hr Administration Protocol 5 MCG/KG/MIN Norepinephrine Bitartrate 32 250 mls @ 2.18 mls/hr 12/22/21 19:15 12/25/21 08:42 mg/ Sodium Chloride IV 0.3 mcg/kg/min .Q24H [facility] 13.078 mls/hr Administration Protocol 0.05 MCG/KG/MIN Vasopressin 60 unit/ Sodium 153 mls @ 6.12 mls/hr 12/23/21 08:30 12/24/21 20:53 Chloride IV 6.12 mls/hr .Q24H [facility] Administration Protocol 0.04 UNITS/MIN Sodium Bicarbonate 150 ml/ 1,150 mls @ 75 mls/hr 12/23/21 09:45 12/25/21 07:59 Dextrose/Water IV 75 mls/hr .[id number] [facility] Administration Metronidazole 500 mg/ IV 100 mls @ 100 mls/hr 12/23/21 16:00 12/25/21 08:01 Solution IVPB 100 mls/hr Q8HR ANGELITA Administration Protocol Cefepime HCl 1 gm/ Sodium 50 mls @ 12.5 mls/hr 12/24/21 09:00 12/25/21 08:04 Chloride IVPB 12.5 mls/hr Q12HR ANG[facility] Administration Furosemide 100 mg/ Sodium 100 mls @ 15 mls/hr 12/24/21 14:45 12/25/21 12:20 Chloride IV 15 mg/hr .Q6H40M ANG[facility] 15 mls/hr Administration 15 MG/HR Insulin Aspart 0 unit 12/14/21 18:00 12/25/21 12:19 Insulin Aspart (Novolog) 100 Unit/Ml Vial SQ 3 unit Q6H ANGELITA Administration Protocol Insulin Detemir 20 unit 12/24/21 21:00 12/24/21 20:51 Insulin Detemir (Levemir) 100 Unit/Ml Syr SQ 20 unit HS ANGELITA Administration Mexiletine HCl 200 mg 12/17/21 08:00 12/25/21 08:03 Mexiletine 200 Mg Cap PO 200 mg Q8HR ANGEL[facility] Administration Miscellaneous Information 1 each 12/15/21 07:39 Potassium Replacement Protocol 1 Each Misc MISCELLANE DAILY PRN Per Protocol Protocol Naloxone HCl 0.2 mg 12/08/21 11:53 Naloxone 0.4 Mg/Ml 1 Ml Vial IV Q2M PRN Opioid Reversal Tamsulosin HCl 0.4 mg 12/08/21 21:00 12/24/21 20:44 Tamsulosin 0.4 Mg Cap.Er.24h PO Not Given HS [facility] Vancomycin HCl 500 mg 12/23/21 13:00 12/25/21 08:43 Vancomycin Oral Solution 250 Mg/5 Ml Bottle PO 12/26/21 13:01 500 mg QID ANGELITA Administration Protocol Objective - Vital Signs Vital signs: Vital Signs Temp 98.2 F 12/25/21 12:00 Pulse 60 12/25/21 14:00 Resp 17 12/25/21 14:00 BP 101/50 12/25/21 14:00 Pulse Ox 98 12/25/21 14:00 Intake & Output 12/24/21 12/25/21 12/25/21 18:59 06:59 18:59 Intake Total 3884.498 0249.752 1109.302 Output Total 1035 1440 950 Balance 934.668 514.752 159.302 Weight 93 kg Intake: IV 870 1055 640 Cefepime 2 gm In Sodium 100 Chloride 0.9% 100 ml @ 25 mls/hr IVPB Q12HR [facility] Rx #:[id number] Dextrose 5% in Water 1, 850 675 600 000 ml @ 75 mls/hr IV . [id number] [facility]GEL[facility] with Sodium Bicarb (1 Meq/ml) 150 ml Rx#:[id number] Sodium Chloride 0.9% 1, 20 180 40 000 ml @ 20 mls/hr IV . Q24H [facility] Rx#:[id number] metroNIDAZOLE-NS PMX 500 100 mg In Saline 1 100ml.bag @ 100 mls/hr IVPB Q8HR [facility] Rx#:[id number] Intake, IV Titration 773.668 619.752 429.302 Amount DOBUTamine DRIP 500 mg In 250 Dextrose/Water 1 250ml. bag @ 2.5 MCG/KG/MIN 6. 975 mls/hr IV .Q24H [facility] Rx#:[id number] Furosemide 100 mg In 93.167 Sodium Chloride 0.9% 90 ml @ 10 MG/HR 10 mls/hr IV .Q10H [facility] Rx#: [id number] Furosemide 100 mg In 100 100 Sodium Chloride 0.9% 90 ml @ 15 MG/HR 15 mls/hr IV .Q6H40M [facility] Rx#: [id number] Norepinephrine 32 mg In 380.501 69.752 206.277 Sodium Chloride 0.9% 218 ml @ 0.05 MCG/KG/MIN 2.18 mls/hr IV .Q24H [facility] Rx#: [id number] propofoL 1,000 mg In 300 200 123.025 Empty Bag 1 bag @ 5 MCG/ KG/MIN 2.85 mls/hr IV . Q24H [facility] Rx#:[id number] Tube Feeding 296 220 40 Other 30 60 Output: Urine 1035 1440 950 Other: Voiding Method Indwelling Catheter Indwelling Catheter Indwelling Catheter ABP, PAP, CO, CI - Last Documented Arterial Blood Pressure 138/41 - Labs CBC & Chem 7: 12/25/21 04:10 12/25/21 04:10 Labs: Abnormal Lab Results - Last 24 Hours (Table) 12/24/21 12/25/21 12/25/21 Range/Units 18:17 00:57 04:10 WBC 23.3 H (3.8-10.6) k/uL RBC 2.69 L (4.30-5.90) m/uL Hgb 8.3 L (13.0-17.5) gm/dL Hct 26.6 L (39.0-53.0) % ABG pH (7.35-7.45) ABG HCO3 (21-25) mmol/L Sodium (137-145) mmol/L Potassium (3.5-5.1) mmol/L Carbon Dioxide (22-30) mmol/L BUN (9-20) mg/dL Creatinine (0.66-1.25) mg/dL Glucose (74-99) mg/dL POC Glucose (mg/dL) 241 H 232 H (75-99) mg/dL Calcium (8.4-10.2) mg/dL Phosphorus (2.5-4.5) mg/dL Alkaline Phosphatase (38-126) U/L Total Protein (6.3-8.2) g/dL Albumin (3.5-5.0) g/dL 12/25/21 12/25/21 12/25/21 Range/Units 04:10 05:30 12:02 WBC (3.8-10.6) k/uL RBC (4.30-5.90) m/uL Hgb (13.0-17.5) gm/dL Hct (39.0-53.0) % ABG pH 7.26 L (7.35-7.45) ABG HCO3 20 L (21-25) mmol/L Sodium 135 L (137-145) mmol/L Potassium 5.3 H (3.5-5.1) mmol/L Carbon Dioxide 17 L (22-30) mmol/L BUN 112 H* (9-20) mg/dL Creatinine 4.36 H (0.66-1.25) mg/dL Glucose 214 H (74-99) mg/dL POC Glucose (mg/dL) 215 H (75-99) mg/dL Calcium 5.7 L* (8.4-10.2) mg/dL Phosphorus 9.6 H* (2.5-4.5) mg/dL Alkaline Phosphatase 136 H (38-126) U/L Total Protein 4.4 L (6.3-8.2) g/dL Albumin 1.9 L (3.5-5.0) g/dL Microbiology - Last 24 Hours (Table) 12/23/21 10:15 Blood Culture - Preliminary Blood No Growth after 48 hours 12/23/21 10:30 Blood Culture - Preliminary Blood No Growth after 48 hours 12/24/21 01:00 Urine Culture - Preliminary Urine,Voided Yeast species 12/24/21 16:53 Gram Stain - Preliminary Sputum Sputum Culture - Preliminary Irma albicans
--- NOTE | 2021-12-25 15:26 | P.PN ---
Progress Note - Text Progress Note Date: 12/25/21 Advanced Care Planning: Diagnoses: Septic Shock Discussion: Person(s) present and participating in discussion: and family friend Summary: Poor overall prognosis. Patient with septic shock, SHITAL, C diff, ileus. On multiple vasopressors, lasix gtt, and vent. Multi-organ dysfunction. I did recommend that if no improvement in 24-48 hours he will likely not improve and I would recommend keeping him comfortable and letting nature take its course. No meaningful progress. All questions answered and reminded that our goal is to keep Ministerio's wishes at heart. A total of 17 minutes of face to face time was spent discussing advanced care planning.
[2021-12-25 17:47] LABS: Glucose,Whole Blood 223 mg/dL (75-99)
[2021-12-25] MEDS: SODIUM CHLORIDE 0.9% 1,000 ML IV SCH (17:56)
[2021-12-25] MEDS: ATORVASTATIN 40 MG TAB PO SCH (20:48)
[2021-12-25] MEDS: TAMSULOSIN 0.4 MG CAP.ER.24H PO SCH (20:49)
[2021-12-25] MEDS: INSULIN DETEMIR (LEVEMIR) 100 UNIT/ML SYR SQ SCH (21:06)
--- NOTE | 2021-12-25 22:10 | P.PN ---
Subjective Progress Note Date: 12/25/21 Principal diagnosis: Sepsis Patient is a 80 year old male presented to the hospital more than 2 weeks ago for nausea and vomiting has been diagnosed with a high-grade small bowel obstruction status post laparotomy with lysis of adhesion and small bowel resection also have cystoscopy and left ureteroscopy with balloon dilatation of left distal ureteral stricture and a clinical course complicated by development of C. diff colitis, patient subsequently did have a respiratory failure requiring intubation and hypotension requiring pressor support. On today's evaluation that is 12/25/2021 the patient remains to be afebrile, the patient remains to be debated on the vent, FiO2 is currently stable at 40%, no significant purulent secretions through the ET, patient is requiring less pressor support per the nursing staff and no output in the colostomy NG tube has been placed Objective - Vital Signs Vital signs: Vital Signs Temp 97.8 F 12/25/21 08:00 Pulse 65 12/25/21 10:00 Resp 26 H 12/25/21 10:00 BP 112/50 12/25/21 10:00 Pulse Ox 96 12/25/21 10:00 Intake & Output 12/24/21 12/25/21 12/25/21 18:59 06:59 18:59 Intake Total 1301.661 8823.752 709.302 Output Total 1035 1440 625 Balance 934.668 514.752 84.302 Weight 93 kg Intake: IV 870 1055 340 Cefepime 2 gm In Sodium 100 Chloride 0.9% 100 ml @ 25 mls/hr IVPB Q12HR [facility] Rx #:[id number] Dextrose 5% in Water 1, 850 675 300 000 ml @ 75 mls/hr IV . [id number] ANGELITA with Sodium Bicarb (1 Meq/ml) 150 ml Rx#:[id number] Sodium Chloride 0.9% 1, 20 180 40 000 ml @ 20 mls/hr IV . Q24H [facility] Rx#:[id number] metroNIDAZOLE-NS PMX 500 100 mg In Saline 1 100ml.bag @ 100 mls/hr IVPB Q8HR [facility] Rx#:[id number] Intake, IV Titration 773.668 619.752 329.302 Amount DOBUTamine DRIP 500 mg In 250 Dextrose/Water 1 250ml. bag @ 2.5 MCG/KG/MIN 6. 975 mls/hr IV .Q24H [facility] Rx#:[id number] Furosemide 100 mg In 93.167 Sodium Chloride 0.9% 90 ml @ 10 MG/HR 10 mls/hr IV .Q10H [facility] Rx#: [id number] Furosemide 100 mg In 100 Sodium Chloride 0.9% 90 ml @ 15 MG/HR 15 mls/hr IV .Q6H40M [facility] Rx#: [id number] Norepinephrine 32 mg In 380.501 69.752 206.277 Sodium Chloride 0.9% 218 ml @ 0.05 MCG/KG/MIN 2.18 mls/hr IV .Q24H [facility] Rx#: [id number] propofoL 1,000 mg In 300 200 123.025 Empty Bag 1 bag @ 5 MCG/ KG/MIN 2.85 mls/hr IV . Q24H [facility] Rx#:[id number] Tube Feeding 296 220 40 Other 30 60 Output: Urine 1035 1440 625 Other: Voiding Method Indwelling Catheter Indwelling Catheter Indwelling Catheter ABP, PAP, CO, CI - Last Documented Arterial Blood Pressure 120/48 - Exam GENERAL DESCRIPTION: An elderly male intubated on the vent RESPIRATORY SYSTEM: Unlabored breathing , decreased breath sounds at bases HEART: S1 S2 regular rate and rhythm , ABDOMEN: Soft , no tenderness EXTREMITIES: 2+ edema feet - Labs CBC & Chem 7: 12/25/21 04:10 12/25/21 04:10 Labs: Abnormal Lab Results - Last 24 Hours (Table) 12/24/21 12/24/21 12/25/21 Range/Units 11:49 18:17 00:57 WBC (3.8-10.6) k/uL RBC (4.30-5.90) m/uL Hgb (13.0-17.5) gm/dL Hct (39.0-53.0) % ABG pH (7.35-7.45) ABG HCO3 (21-25) mmol/L Sodium (137-145) mmol/L Potassium (3.5-5.1) mmol/L Carbon Dioxide (22-30) mmol/L BUN (9-20) mg/dL Creatinine (0.66-1.25) mg/dL Glucose (74-99) mg/dL POC Glucose (mg/dL) 201 H 241 H 232 H (75-99) mg/dL Calcium (8.4-10.2) mg/dL Phosphorus (2.5-4.5) mg/dL Alkaline Phosphatase (38-126) U/L Total Protein (6.3-8.2) g/dL Albumin (3.5-5.0) g/dL 12/25/21 12/25/21 12/25/21 Range/Units 04:10 04:10 05:30 WBC 23.3 H (3.8-10.6) k/uL RBC 2.69 L (4.30-5.90) m/uL Hgb 8.3 L (13.0-17.5) gm/dL Hct 26.6 L (39.0-53.0) % ABG pH 7.26 L (7.35-7.45) ABG HCO3 20 L (21-25) mmol/L Sodium 135 L (137-145) mmol/L Potassium 5.3 H (3.5-5.1) mmol/L Carbon Dioxide 17 L (22-30) mmol/L BUN 112 H* (9-20) mg/dL Creatinine 4.36 H (0.66-1.25) mg/dL Glucose 214 H (74-99) mg/dL POC Glucose (mg/dL) (75-99) mg/dL Calcium 5.7 L* (8.4-10.2) mg/dL Phosphorus 9.6 H* (2.5-4.5) mg/dL Alkaline Phosphatase 136 H (38-126) U/L Total Protein 4.4 L (6.3-8.2) g/dL Albumin 1.9 L (3.5-5.0) g/dL Microbiology - Last 24 Hours (Table) 12/24/21 16:53 Gram Stain - Preliminary Sputum Sputum Culture - Preliminary 12/23/21 10:15 Blood Culture - Preliminary Blood No Growth after 24 hours 12/23/21 10:30 Blood Culture - Preliminary Blood No Growth after 24 hours 12/24/21 01:00 Urine Culture - Preliminary Urine,Voided Assessment and Plan (1) Sepsis Current Visit: Yes Status: Acute Code(s): A41.9 - SEPSIS, UNSPECIFIED ORGANISM SNOMED Code(s): 42467842 Plan: 1patient with sepsis/septic shock likely secondary to abdominal source in this patient who did have a laparotomy for a mechanical small bowel obstruction requiring lysis of adhesion and small bowel resection though repeat CAT scan done about 10 days still show significant dilatation and more likely abdominal source with a clinical course also complicated by development of C. difficile colitis. 2blood culture sputum and urine culture are currently pending 3patient to continue with vancomycin to 500 every 6 hours and along with IV Flagyl. 4 continue with cefepime while waiting for the culture to finalize. 5patient overall prognosis remains to be guarded at the bedside questions concerned were answered Time with Patient: Less than 30
[2021-12-25 23:40] LABS: Glucose,Whole Blood 240 mg/dL (75-99)
[2021-12-26] MEDS: FUROSEMIDE 100 MG in SODIUM CHLORIDE 0.9% 90 ML IV SCH ×4 (04:17→22:15)
[2021-12-26 04:31] LABS: HCT 24.8 % (39.0-53.0); HGB 8.1 gm/dL (13.0-17.5); Hypochromasia Slight; MCH 31.2 pg (25.0-35.0); MCHC 32.6 g/dL (31.0-37.0); MCV 95.8 fL (80.0-100.0); Mean Platelet Volume 10.8; Platelet Count 252 k/uL (150-450); RBC 2.59 m/uL (4.30-5.90); RDW 14.8 % (11.5-15.5); WBC 15.6 k/uL (3.8-10.6)
[2021-12-26 04:46] LABS: Potassium 4.2 mmol/L (3.5-5.1)
[2021-12-26 05:09] LABS: Calcium 5.1 mg/dL (8.4-10.2)
[2021-12-26 05:50] LABS: Glucose,Whole Blood 194 mg/dL (75-99)
[2021-12-26 06:00] LABS: ABG HCO3 22 mmol/L (21-25); ABG Oxygen Saturation 98.3 % (94-97); ABG PCO2 38 mmHg (35-45); ABG PH 7.38 (7.35-7.45); ABG PO2 116 mmHg (83-108); ABG TCO2 23 mmol/L (19-24); Allen Test Performed? Yes
[2021-12-26] MEDS: INSULIN ASPART (NovoLOG) 100 UNIT/ML VIAL SQ SCH ×4 (06:01→23:46)
[2021-12-26] MEDS: HYDROCORTISONE SUCCINATE 100 MG/2 ML VIAL IV SCH (08:05)
[2021-12-26] MEDS: FAMOTIDINE 20 MG/2 ML VIAL IV SCH (08:06)
[2021-12-26] MEDS: HEPARIN SODIUM,PORCINE/PF 5,000 UNIT/0.5 ML SYRINGE SQ SCH ×3 (08:06→23:47)
[2021-12-26] MEDS: CHLORHEXIDINE GLUCONATE 15 ML CUP MUCOUS MEM SCH ×2 (08:06→20:41)
[2021-12-26] MEDS: metroNIDAZOLE-NS PMX 500 MG in SALINE 1 100ML.BAG IVPB SCH ×3 (08:06→23:47)
[2021-12-26] MEDS: ASPIRIN 81 MG PO SCH (08:07)
[2021-12-26] MEDS: MEXILETINE 200 MG CAP PO SCH ×3 (08:08→23:47)
[2021-12-26] MEDS: FINASTERIDE 5 MG TAB PO SCH (08:08)
[2021-12-26] MEDS: AMIODARONE 200 MG TAB PO SCH ×2 (08:54→20:42)
[2021-12-26] MEDS: VANCOMYCIN ORAL SOLUTION 250 MG/5 ML BOTTLE PO SCH ×2 (08:54→14:28)
--- NOTE | 2021-12-26 09:29 | P.PN ---
Subjective Progress Note Date: 12/26/21 PROGRESS NOTE The patient is an 80-year-old male with known history of CAD status post stenting, cardiomyopathy him of ventricle tachycardia and ICD implantation who underwent exploratory laparotomy and colostomy. He had episode of recurrent ventricular tachycardia, has been stable after the addition of amiodarone and mexiletine. He continues to be in sinus mechanism. His blood pressure is stable. He continues to have peripheral edema but his urinary output has been stable. He denies any chest discomfort or dizziness. He is confused at times. There is no further evidence of ventricular tachycardia. His colostomy is working. He continues to be on amiodarone 400 mg twice a day, Lipitor 40 mg daily, Lasix 40 mg IV every 8 hours insulin, mexiletine 200 mg every 8 hours, spironolactone 12-1/2 mg daily December 22: The patient is more confused today, continues to be in sinus mechanism with no evidence of ventricular tachycardia or atrial fibrillation. He continues to be on dobutamine. His blood pressure is on the low side. His colostomy is functioning. He continues to have significant peripheral edema. He is receiving IV Lasix. There is no evidence of GI bleeding. In the past his ejection fraction was 40-45%, his most recent echocardiogram was suboptimal and no evaluation of his LV systolic function could be made. He continues to be on amiodarone 400 mg twice a day, mexiletine 200 mg every 8 hours, aspirin once a day in addition to Lasix 40 mg IV every 8 hours. December 23: The patient became more somnolent with respiratory distress, requiring mechanical ventilation. He is intubated and sedated. He continues to be on IV dobutamine and norepinephrine. He continues to be in sinus mechanism with no evidence of atrial or ventricular arrhythmia. An echocardiogram performed yesterday showed an ejection fraction of 45-50% with mild aortic stenosis and tricuspid regurgitation with mild pulmonary hypertension. He has good urine output but continues to have significant edema. He continues to be on amiodarone 400 mg twice a day, mexiletine 200 mg 3 times a day, Lasix 40 mg daily, Lipitor 40 mg daily, aspirin and Aldactone 12-1/2 mg daily. December 24: The patient remains intubated and sedated. He continues to be on IV dobutamine, nor epinephrine and vasopressin. His blood pressure has been stable and he continues to be in sinus mechanism. He has good urinary output but his renal functions are worse. He had no further episodes of ventricle tachycardia. He was evaluated by nephrology for possible dialysis if needed. He continues to have significant edema. His colostomy is functioning. Patient has findings suggestive of sepsis. He continues to receive TPN. He continues to be on mexiletine 200 mg 3 times a day, amiodarone 200 mg twice a day, Lipitor 40 mg daily and Aldactone 12.5 mg daily December 25: The patient remains intubated, sedated on IV Lasix drip and continues to be on vasopressor with severe peripheral edema. His urinary output has been stable. There is no further episodes of ventricular tachycardia. He continues to be on amiodarone 200 mg twice a day and mexiletine 200 mg 3 times a day. He has been evaluated for possible dialysis and that is on hold for now. December 26, The patient remains intubated and sedated with good urinary output. He is paced at times. He has no further episodes of ventricle tachycardia. The dose of his norepinephrine and vasopressin are decreased. He has no atrial fibrillation. He continues to be on amiodarone 200 mg twice a day in addition to mexiletine. PHYSICAL EXAMINATION: Intubated and sedated Blood pressure 104/50, heart rate 60 LUNGS: Clear to auscultation anteriorly with mild decrease breath sounds at the bases HEART: Regular rate and rhythm, S1, S2. No S3. systolic ejection murmur at the base ABDOMEN: Soft, no organomegaly, colostomy bag in place EXTREMETIES: 3+ edema with scrotal edema, mildly improved LAB: BUN and creatinine 4.38, potassium 4.2, hemoglobin 8.1 IMPRESSION: 1. Status post exploratory laparotomy and colostomy 2. Ventricle tachycardia, stable on present regimen 3. History of coronary artery disease and cardiomyopathy. Most recent echocardiogram showed an ejection fraction of 40-45% 4. Worsening renal failure with good urinary output 5. Paroxysmal atrial fibrillation, now in sinus mechanism 6. Anemia 7. Third spacing with peripheral edema 8. Respiratory failure with fluid overload with decrease in mentation. Urinary output at this time stable. PLAN: 1. Continue IV Lasix 2. Wean IV pressors as tolerated 3. Continue present dose of amiodarone 4. Once off vasopressors start beta christelle 5. Follow renal functions Objective - Vital Signs Vital signs: Vital Signs Temp 97.4 F L 12/26/21 04:00 Pulse 60 12/26/21 07:00 Resp 27 H 12/26/21 07:00 BP 104/51 12/26/21 07:00 Pulse Ox 91 L 12/26/21 07:00 Intake & Output 12/25/21 12/26/21 12/26/21 18:59 06:59 18:59 Intake Total 1397.754 4233.474 100 Output Total 1505 3090 50 Balance 275.698 -1359.526 50 Weight 99 kg Intake: IV 940 1295 Dextrose 5% in Water 1, 900 975 000 ml @ 75 mls/hr IV . [id number] ANGELITA with Sodium Bicarb (1 Meq/ml) 150 ml Rx#:[id number] Sodium Chloride 0.9% 1, 40 220 000 ml @ 20 mls/hr IV . Q24H ANGELITA Rx#:[id number] metroNIDAZOLE-NS PMX 500 100 mg In Saline 1 100ml.bag @ 100 mls/hr IVPB Q8HR ANGELITA Rx#:[id number] Intake, IV Titration 800.698 435.474 100 Amount Furosemide 100 mg In 138 200 Sodium Chloride 0.9% 90 ml @ 15 MG/HR 15 mls/hr IV .Q6H40M ANGELITA Rx#: [id number] Norepinephrine 32 mg In 339.673 40.949 Sodium Chloride 0.9% 218 ml @ 0.05 MCG/KG/MIN 2.18 mls/hr IV .Q24H ANGELITA Rx#: [id number] propofoL 1,000 mg In 323.025 194.525 100 Empty Bag 1 bag @ 5 MCG/ KG/MIN 2.85 mls/hr IV . Q24H ANGELITA Rx#:[id number] Tube Feeding 40 Output: Gastric Drainage 900 50 Urine 1505 2190 Other: Voiding Method Indwelling Catheter Indwelling Catheter ABP, PAP, CO, CI - Last Documented Arterial Blood Pressure 129/43 - Labs CBC & Chem 7: 12/26/21 04:05 12/26/21 04:05 Labs: Abnormal Lab Results - Last 24 Hours (Table) 12/25/21 12/25/21 12/25/21 Range/Units 12:02 17:46 23:39 WBC (3.8-10.6) k/uL RBC (4.30-5.90) m/uL Hgb (13.0-17.5) gm/dL Hct (39.0-53.0) % ABG pO2 (83-108) mmHg ABG O2 Saturation (94-97) % Sodium (137-145) mmol/L Carbon Dioxide (22-30) mmol/L BUN (9-20) mg/dL Creatinine (0.66-1.25) mg/dL Glucose (74-99) mg/dL POC Glucose (mg/dL) 215 H 223 H 240 H (75-99) mg/dL Calcium (8.4-10.2) mg/dL 12/26/21 12/26/21 12/26/21 Range/Units 04:05 04:05 05:47 WBC 15.6 H (3.8-10.6) k/uL RBC 2.59 L (4.30-5.90) m/uL Hgb 8.1 L (13.0-17.5) gm/dL Hct 24.8 L (39.0-53.0) % ABG pO2 (83-108) mmHg ABG O2 Saturation (94-97) % Sodium 135 L (137-145) mmol/L Carbon Dioxide 19 L (22-30) mmol/L BUN 117 H* (9-20) mg/dL Creatinine 4.38 H (0.66-1.25) mg/dL Glucose 190 H (74-99) mg/dL POC Glucose (mg/dL) 194 H (75-99) mg/dL Calcium 5.1 L* (8.4-10.2) mg/dL 12/26/21 Range/Units 05:56 WBC (3.8-10.6) k/uL RBC (4.30-5.90) m/uL Hgb (13.0-17.5) gm/dL Hct (39.0-53.0) % ABG pO2 116 H (83-108) mmHg ABG O2 Saturation 98.3 H (94-97) % Sodium (137-145) mmol/L Carbon Dioxide (22-30) mmol/L BUN (9-20) mg/dL Creatinine (0.66-1.25) mg/dL Glucose (74-99) mg/dL POC Glucose (mg/dL) (75-99) mg/dL Calcium (8.4-10.2) mg/dL Microbiology - Last 24 Hours (Table) 12/24/21 16:53 Gram Stain - Final Sputum Sputum Culture - Final Irma albicans 12/24/21 01:00 Urine Culture - Final Urine,Voided Irma albicans 12/23/21 10:15 Blood Culture - Preliminary Blood No Growth after 48 hours 12/23/21 10:30 Blood Culture - Preliminary Blood No Growth after 48 hours
[2021-12-26] MEDS: CEFEPIME 1 GM in SODIUM CHLORIDE 0.9% 50 ML IVPB SCH ×2 (09:52→20:42)
--- NOTE | 2021-12-26 10:23 | XR ---
EXAMINATION TYPE: XR chest 1V portable DATE OF EXAM: 12/26/2021 COMPARISON: 12/25/2021 INDICATION: Tube placement TECHNIQUE: Single frontal view of the chest is obtained. FINDINGS: The heart size is normal. The pulmonary vasculature is somewhat prominent. Bibasilar infiltrates are present more so on the right than the left. Findings appear similar to comp arison. Small effusion may be developing on the right. Endotracheal tube tip is above yosi. Nasogastric tube transverses the thorax. IMPRESSION: 1. Bibasilar infiltrates. 2. Small right pleural effusion. 3. Lines and catheters discussed above.
--- NOTE | 2021-12-26 11:11 | P.PN ---
Subjective Progress Note Date: 12/26/21 Principal diagnosis: Status post exploratory laparotomy, lysis of adhesions, repair of peristomal hernia, small bowel resection on 12/09/2021. On 12/20/2021 patient seen in follow-up in intensive care unit, he is awake and alert, appears to be tachypneic, short of breath at rest, and with any conversation. He is on 4 L of oxygen with a pulse ox of 91%, and subsequently his flow was increased to 5 L in view of worsening dyspnea, patient is postoperative day #11, status post exploratory laparotomy, lysis of adhesions, repair of parastomal hernia, small bowel resection on 12/09/2021. His NG tube has been discontinued however patient is having somewhat of a hard time swallo wing, he is coughing at times, bringing up some yellowish colored phlegm, his Zosyn was discontinued, his colostomy is producing liquid brown stool. Patient was afebrile overnight, but generally he appears to be quite significantly fluid overloaded, he remains on Lasix 40 mg twice daily. He was in positive 1500 mL net fluid balance over the last 24 hours. His chest x-ray today showing hypoventilatory changes and patchy airspace disease at the periphery of the right base and at the retrocardiac region at the left base. The possibility of infectious etiology is being considered. No fever or chills overnight. His abdominal incision is draining moderate amount of serous output, midportion of the incision is packed with silver ion packing. Generally patient has significant anasarca, third spacing and received 4 doses of 25% albumin. Today's labs have been reviewed, with blood cell count is elevated but improved and is down to 25.7, hemoglobin is 10.3, sodium is 135, potassium is 4.5, chloride is 107, CO2 is 19, B1 is 65, creatinine is 1.93. LFTs are improved. On 12/21/2021 patient seen in follow-up in the intensive care unit. Still quite dyspneic, tachypneic, he was placed on CPAP support today with a pressure of 10 cm of water, and FiO2 currently is at 60%. His pulse ox is 96%, tolerating CPAP support well, still tachypneic, he is achieving tidal volumes of 799, his res piratory rate is 25-33, minute ventilation is 28 L/m. Remains on Lasix of 40 mg every 8 hours. She was started on Dobutrex at 2.5 mics per kilo per minute. Patient is again in +2 L net fluid balance over the last 24 hours. He has generalized edema in his upper and lower extremities, torso. Urine output is a new order off 85-100 ML per hour. Patient continues on TPN at 75 ML per hour. Today's chest x-ray showing cardiomegaly with left greater than right increasing opacities suggesting worsening pulmonary edema and/or infiltrate. Patient remains on Zosyn, his urine culture was positive for pseudomonas. Afebrile overnight. His blood pressures are marginal, was systolic in the 70s and 80s and occasionally in the 90s, with diastolic in the 50s and the mean of 55-65. Abdomen is nontender, his colostomy is producing some liquid stool, he remains on oral vancomycin for C. diff colitis. A total of 200 mL in liquid output from his colostomy in the last 24 hours. Today's labs have been reviewed, there is improvement in his white blood cell count which is down to 15.6, hemoglobin is 8.2, platelet count is 231, sodium is 137, potassium is 4.4, chloride is 108, CO2 is 21, BUN is 77, creatinine is 2.4 200 today's labs. Reevaluated today on 12/22/2021, patient has been gradually getting worse over the last 24 hours, last night the patient was developing more agitation, and he was on BiPAP at one point, later transitioned to a nonrebreather mask, O2 saturations remained marginal. Patient was placed on Precedex for his agitation, and when I evaluated the patient this morning, patient seemed to be in worsening respiratory distress. ABG was marginal at best. On a nonrebreath er mask, his pO2 was only 61 pCO2 34 pH of 7.40. Patient was noted to be tachypneic tachycardic, and extremely agitated. Chest x-ray showed evidence of worsening increased lung markings and pulmonary vasculature markings suggestive of pulmonary edema, underlying pneumonia is not entirely ruled out. Patient has been diuresing well and his renal functioning has been getting a bit worse. He has been receiving Lasix 40 mg IV push every 8 hours and is also on Dobutrex at 5 mcg/kg/m. Blood pressure has been marginal and he required placement on norepinephrine this morning. Yesterday I made the family aware including his and his son about his condition, and I explained to them that he may end up requiring intubation and mechanical ventilation. Indeed this morning the patient clearly needs to be intubated and mechanically ventilated, and my clinical judgment was to proceed with intubating the patient and placing the patient on mechanical ventilation in the meantime continue hemodynamic support, continue antibiotics, continue inotropic support, echocardiogram which was ordered by cardiology is pending this morning. Post intubation his ABG showed a pO2 of 190 pCO2 42 pH of 7.31, hence the patient was placed on FiO2 of 50%, tidal volume is 450 rate of 22 and PEEP of 5. CBC today showed WBC of 10.1 hemoglobin is 8 and platelets 181,000. Medication [place] patient remains on Tyl enol, amiodarone orally twice a day, Lipitor, Peridex, Pepcid, dobutamine which I cut down to 2.5 mcg/kg/m, Pepcid, TPN, Proscar, Lasix 40 mg cut down from 3 times a day to once daily patient is now on propofol drip and he is also on Dilaudid when necessary remains on Zosyn and he is requiring norepinephrine for marginal low blood pressure. Patient was reevaluated today on 12/23/2021, remains in the ICU, remains critically ill, patient required intubation and mechanical ventilation yesterday. He is now on tidal volume of 450 assist control rate of 22 FiO2 50% I cut it down to 45% and his PEEP is at 5. ABG this morning showed a pO2 of 137 pCO2 of 38 pH of 7.28, hence I started the patient today on a bicarb drip. At 50 mL per hour. I cut down his FiO2 to 45%. Patient is requiring more pressors he is basically maximized on norepinephrine at 1 mcg/kg/m, he is on Dobutrex at 5 mcg/kg/m receiving vasopressin at 0.03 units per minutes. Blood pressure remains marginal. Patient remains quite edematous and he seems to be third spacing with significant edema in upper and lower extremities. Chest x-ray continues showed bilateral interstitial edema/infiltrates. Not much of a gear changer the last 24 hours. Although his oxygenation is improving. Patient is still receiving antibiotics in the form of Zosyn, day considering the patient had only one urine culture that showed pseudomonas, I added cefepime at the patient seems to be septic and he is developing what looks like a septic shock. Blood cultures were ordered. Patient remains on oral vancomycin for C. difficile colitis. And he is on vital AF at 20 mL per hour. His ostomy seems to be functioning well. Reevaluated today on 12/24/2021. Patient remains intubated and mechanically ventilated. He is now on assist control rate of 22 tidal volume of 450 FiO2 45% and PEEP of 5. ABG showed a pO2 of 107 pCO2 41 pH of 7.26. Patient remains on bicarb drip, and I increased the bicarb drip to 75 mL per hour instead of 50 mL per hour. Patient remains on multiple drips including sodium bicarb drip, norepinephrine at 0.7 vasopressin at 0.04 Lasix at 10 mg per hour patient is on dobutamine at 5 mcg/kg/m and I cut it down to 2.5 he is also on propofol at 15 mcg/kg/m vasopressin at 0.04. His IV fluids at 50 mL per hour. Patient is receiving vital AF at 48 mL per hour. Chest x-ray continues to show evidence of bilateral interstitial edema/infiltrates, his urine output seems to be excellent he is putting out over 1 50 mL per hour, however his renal status seems to be a bit worse. His electrolytes showed hyperkalemia with a potassium of 5.5 bicarb is 16 but that will improve with increasing the bicarb drip. BUN is 100 creatinine 3.75. Family was updated on his condition yesterday, and the CODE STATUS was changed to DO NOT RESUSCITATE. Continues to have leukocytosis with WBC count of 20.3 hemoglobin is 9. Continue blood cultures and urine cultures are pending. In the meantime the patient is on Zosyn and cefepime for his Pseudomonas infection in the urine which was diagnosed back on 12/08 Patient was reevaluated today on 12/25/2021. Remains in the ICU intubated and mechanically ventilated. He is on assist control rate of 22 tidal volume 450 FiO2 40% PEEP of 5 however his rate was increased to 26, ABG showed a pO2 of 84 pCO2 of 44 pH of 7.26 his renal functioning seems to be worse today, BUN is up to 112 creatinine is 4.36. Seen by nephrology on consultation, and patient is now on vasopressin drip at 10 mg per hour. Continues to have leukocytosis with WBC of 43.3 hemoglobin is 8.3, blood cultures done recently are negative urine culture remains negative sputum is showing Irma albicans., Chest x-ray continues to show by basilar airspace disease, improving overall compared to the x-rays a few days ago. Patient remains on multiple drips including norepinephrine at 0.3 micrograms per kilo per minute, is on vasopressin at 0.04. Dobutamine at 2.5 mcg/kg/m propofol at 50 mcg/kg/m remains on bicarb drip at 75 mL/h and now he is on Lasix drip. Likely I don't believe there is much impr ovement in the last 24 hours, patient continues to have good urine output, and he is being considered for hemodialysis. As a matter of fact the patient did have dialysis catheter placement yesterday in the right groin done by vascular surgery Reevaluated today on 12/26/2021, patient remains in the ICU intubated and mechanically ventilated. He is on assist control rate of 26 tidal volume 450 FiO2 40% and PEEP of 5. ABG showed a pO2 of 116 pCO2 38 pH of 7.38 WBC count is 15.6 hemoglobin 8.1 electrolytes are normal renal profile is worsening with a BUN up to 117 creatinine 4.38. Patient continues to have significant urinary output, however he remains quite swollen and edematous. And he is obviously third spacing because of his nutritional status and hypoalbuminemia. Patient is being followed by many consultants including cardiology, and nephrology. Blood cultures done in the last 48 hours were negative and remained negative his sputum cultures are showing Irma and his last urine culture from few weeks ago showed pseudomonas aeruginosa. Patient remains on metronidazole, he is also on cefepime, and on oral vancomycin. and those are being addressed by infectious disease on the case. Patient was placed on amiodarone by cardiology. And he remains on amiodarone. Remains on subcu heparin, and today on cutting down his Solu-Cortef to 50 mg IV push every 8 hours. Patient did have a dialysis catheter placed by vascular surgery, however no plans to start hemodialysis anytime soon. Chest x-ray is showing improvement in his interstitial edema/pneumonia. Patient remains on multiple drips including norepinephrine at 0.12 mcg/kg/m vasopressin at 0.02 units per minute bicarb drip at 75 mL per hour propofol at 50 mcg/kg/m Dobutrex at 2.5 mcg/kg/m Objective - Vital Signs Vital signs: Vital Signs Temp 97.4 F L 12/26/21 04:00 Pulse 60 12/26/21 10:00 Resp 25 H 12/26/21 10:00 BP 94/51 12/26/21 09:00 Pulse Ox 94 L 12/26/21 10:00 Intake & Output 12/25/21 12/26/21 12/26/21 18:59 06:59 18:59 Intake Total 2469.747 1051.474 558.75 Output Total 1505 3090 475 Balance 275.698 -1359.526 83.75 Weight 99 kg Intake: IV 940 1295 325 Dextrose 5% in Water 1, 900 975 225 000 ml @ 75 mls/hr IV . [id number] [facility] with Sodium Bicarb (1 Meq/ml) 150 ml Rx#:[id number] Sodium Chloride 0.9% 1, 40 220 000 ml @ 20 mls/hr IV . Q24H [facility] Rx#:[id number] metroNIDAZOLE-NS PMX 500 100 100 mg In Saline 1 100ml.bag @ 100 mls/hr IVPB Q8HR [facility] Rx#:[id number] Intake, IV Titration 800.698 435.474 233.75 Amount Cefepime 1 gm In Sodium 50 Chloride 0.9% 50 ml @ 12. 5 mls/hr IVPB Q12HR [facility] Rx#:[id number] Furosemide 100 mg In 138 200 83.75 Sodium Chloride 0.9% 90 ml @ 15 MG/HR 15 mls/hr IV .Q6H40M [facility] Rx#: [id number] Norepinephrine 32 mg In 339.673 40.949 Sodium Chloride 0.9% 218 ml @ 0.05 MCG/KG/MIN 2.18 mls/hr IV .Q24H [facility] Rx#: [id number] propofoL 1,000 mg In 323.025 194.525 100 Empty Bag 1 bag @ 5 MCG/ KG/MIN 2.85 mls/hr IV . Q24H [facility] Rx#:[id number] Tube Feeding 40 Output: Gastric Drainage 900 50 Urine 1505 2190 425 Other: Voiding Method Indwelling Catheter Indwelling Catheter ABP, PAP, CO, CI - Last Documented Arterial Blood Pressure 128/43 - Exam GENERAL EXAM: Revealed 80-year-old white male, intubated, fully sedated. HEAD: Normocephalic/atraumatic. Orogastric tube and endotracheal tube are i ntact. EYES: Normal reaction of pupils, equal size. Conjunctiva pink, sclera white. NOSE: Clear with pink turbinates. NECK: Supple, no neck masses no JVD. CHEST: Symmetrical chest expansion noted deformity. LUNGS: Crackles at the bases. No rhonchi and no wheezes. CVS: Distant S1 and S2, no S3 gallop, 2/6 systolic murmur thought the precordium. ABDOMEN: Soft, nontender. No hepatosplenomegaly, normal bowel sounds, no guarding or rigidity. Midabdominal incision is draining moderate to large malia unt of serous output, shant are in place, colostomy seems to be functional. EXTREMITIES: No clubbing, 3+ bipedal edema, no cyanosis. MUSCULOSKELETAL: No deformities. Could not assess motion. SKIN: No rashes CENTRAL NERVOUS SYSTEM: Could not assess, patient is sedated. PSYCHIATRIC: Could not assess. - Labs CBC & Chem 7: 12/26/21 04:05 12/26/21 04:05 Labs: Abnormal Lab Results - Last 24 Hours (Table) 12/25/21 12/25/21 12/25/21 Range/Units 12:02 17:46 23:39 WBC (3.8-10.6) k/uL RBC (4.30-5.90) m/uL Hgb (13.0-17.5) gm/dL Hct (39.0-53.0) % ABG pO2 (83-108) mmHg ABG O2 Saturation (94-97) % Sodium (137-145) mmol/L Carbon Dioxide (22-30) mmol/L BUN (9-20) mg/dL Creatinine (0.66-1.25) mg/dL Glucose (74-99) mg/dL POC Glucose (mg/dL) 215 H 223 H 240 H (75-99) mg/dL Calcium (8.4-10.2) mg/dL 12/26/21 12/26/21 12/26/21 Range/Units 04:05 04:05 05:47 WBC 15.6 H (3.8-10.6) k/uL RBC 2.59 L (4.30-5.90) m/uL Hgb 8.1 L (13.0-17.5) gm/dL Hct 24.8 L (39.0-53.0) % ABG pO2 (83-108) mmHg ABG O2 Saturation (94-97) % Sodium 135 L (137-145) mmol/L Carbon Dioxide 19 L (22-30) mmol/L BUN 117 H* (9-20) mg/dL Creatinine 4.38 H (0.66-1.25) mg/dL Glucose 190 H (74-99) mg/dL POC Glucose (mg/dL) 194 H (75-99) mg/dL Calcium 5.1 L* (8.4-10.2) mg/dL 12/26/21 Range/Units 05:56 WBC (3.8-10.6) k/uL RBC (4.30-5.90) m/uL Hgb (13.0-17.5) gm/dL Hct (39.0-53.0) % ABG pO2 116 H (83-108) mmHg ABG O2 Saturation 98.3 H (94-97) % Sodium (137-145) mmol/L Carbon Dioxide (22-30) mmol/L BUN (9-20) mg/dL Creatinine (0.66-1.25) mg/dL Glucose (74-99) mg/dL POC Glucose (mg/dL) (75-99) mg/dL Calcium (8.4-10.2) mg/dL Microbiology - Last 24 Hours (Table) 12/24/21 16:53 Gram Stain - Final Sputum Sputum Culture - Final Irma albicans 12/24/21 01:00 Urine Culture - Final Urine,Voided Irma albicans 12/23/21 10:15 Blood Culture - Preliminary Blood No Growth after 48 hours 12/23/21 10:30 Blood Culture - Preliminary Blood No Growth after 48 hours Assessment and Plan Assessment: Impression: Acute hypoxic respiratory failure, multifactorial requiring intubation and mechanical ventilation on 12/22/2021. Mostly related to acute on chronic systolic congestive heart failure and aspiration pneumonia is strongly suspected. Septic shock secondary to abdominal sepsis Status post exploratory laparotomy, lysis of adhesions, repair of peristomal hernia, bowel resection on 12/09/2021. Postoperative day # 17 Acute urinary tract infection secondary to pseudomonas aeruginosa and history of right sided hydronephrosis. Urine cultures repeated are negative Ischemic cardiomyopathy and LV dysfunction history of AICD placement and ablation for ventricular tachycardia. Asked ejection fraction was noted to be 45%. Cholelithiasis. Acute on chronic kidney injury, followed by nephrology. He is on Lasix drip at 15 mg per hour History of coronary artery disease and previous stent placement History of nonsustained ventricular tachycardia and review his ablation as well as AICD placement History of obstructive sleep apnea syndrome Benign essential hypertension History of colon cancer with previous colectomy and colostomy History of deep vein thrombosis Paroxysmal atrial fibrillation Hypoalbuminemia/hypoproteinemia. Recommendation: Continue ventilatory support Continue Lasix drip. 15 mg per hour. Continue bicarbonate drip. 75 ML per hour Solu-Cortef to 50 mg every 12 hours Continue norepinephrine and vasopressin. Titrate pressors accordingly Continue dobutamine. 2.5 mcg/kg/m Continue antibiotics/Zosyn, added cefepime for now. Continue TPN. Nutritional support. Continue GI and DVT prophylaxis. Continue to monitor renal status Critical care time is over 30 minutes, remains critically ill We will continue to follow. Time with Patient: Greater than 30
--- NOTE | 2021-12-26 11:49 | P.PN ---
Subjective Progress Note Date: 12/26/21 Pts levophed downtitrated. Minimal ostomy output. UOP is good on lasix gtt. Gen: intubated, sedated HEENT: normocephalic, atraumatic, Resp: ventilator CVS: good distal perfusion x 4, GI: ostomy : fuentes catheter is present MSK: + pitting edema, no clubbing Assessment/plan: Urinary tract infection, complicated with pseudomonas and septic shock Obstructive uropathy status post stent placement 12/09 Small bowel obstruction Acute cholecystitis GI bleeding due to C diff with anticoagulation Acute hypoxic respiratory failure, possible underlying aspiration pneumonia -Patient completed antibiotics for UTI on 12/16 with Zosyn, - ID recs appreciated- cefepime -Urology recommendations appreciated: Needs outpatient follow-up, flomax -General surgery recommendations: On TPN - continue with levophed, vaso - Critical care recs appreciated: managing gabriel - stress dose steroids Ileus - check x-ray SHITAL on CKD 3 baseline Cr 2 Hyperkalemia - Follow Cr closely - Nephrology recs appreciated, HD cath in place but not a candidate at this time - Lasix gtt - likely multifactorial - on bicarb gtt Acute exacerbation systolic 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 fib - Cardiology recommendations - Amiodarone, mexelitine - Dobutamine - On aldactone - Lasix gtt - strict I's and O's, daily weights - Telemetry C. diff infection -On oral vancomycin, IV flagyl - ID recs Acute blood loss anemia -Status post packed red blood cells on 12/16 Severe protein calorie malnutrition -On TPN Hyperglycemia -Continue with sliding scale insulin and Levemir 15 units at night -Follow blood sugars -Hemoglobin A1c 5.7, will need repeat in 3 months Coronary artery disease status post stenting -Aspirin -Lipitor Hyperlipidemia Essential hypertension DNR DVT prophylaxis: Heparin Anticipated discharge: undetermined Anticipated discharge place: undetermined Objective - Vital Signs Vital signs: Vital Signs Temp 96.2 F L 12/26/21 11:00 Pulse 60 12/26/21 11:00 Resp 26 H 12/26/21 11:00 BP 94/51 12/26/21 09:00 Pulse Ox 92 L 12/26/21 11:00 Intake & Output 12/25/21 12/26/21 12/26/21 18:59 06:59 18:59 Intake Total 2065.055 6483.474 633.75 Output Total 1505 3090 660 Balance 275.698 -1359.526 -26.25 Weight 99 kg Intake: IV 940 1295 400 Dextrose 5% in Water 1, 900 975 300 000 ml @ 75 mls/hr IV . [id number] [facility] with Sodium Bicarb (1 Meq/ml) 150 ml Rx#:[id number] Sodium Chloride 0.9% 1, 40 220 000 ml @ 20 mls/hr IV . Q24H [facility] Rx#:[id number] metroNIDAZOLE-NS PMX 500 100 100 mg In Saline 1 100ml.bag @ 100 mls/hr IVPB Q8HR [facility] Rx#:[id number] Intake, IV Titration 800.698 435.474 233.75 Amount Cefepime 1 gm In Sodium 50 Chloride 0.9% 50 ml @ 12. 5 mls/hr IVPB Q12HR [facility] Rx#:[id number] Furosemide 100 mg In 138 200 83.75 Sodium Chloride 0.9% 90 ml @ 15 MG/HR 15 mls/hr IV .Q6H40M [facility] Rx#: [id number] Norepinephrine 32 mg In 339.673 40.949 Sodium Chloride 0.9% 218 ml @ 0.05 MCG/KG/MIN 2.18 mls/hr IV .Q24H [facility] Rx#: [id number] propofoL 1,000 mg In 323.025 194.525 100 Empty Bag 1 bag @ 5 MCG/ KG/MIN 2.85 mls/hr IV . Q24H [facility] Rx#:[id number] Tube Feeding 40 Output: Gastric Drainage 900 50 Urine 1505 2190 610 Other: Voiding Method Indwelling Catheter Indwelling Catheter Indwelling Catheter ABP, PAP, CO, CI - Last Documented Arterial Blood Pressure 119/39 - Labs CBC & Chem 7: 12/26/21 04:05 12/26/21 04:05 Labs: Abnormal Lab Results - Last 24 Hours (Table) 12/25/21 12/25/21 12/25/21 Range/Units 12:02 17:46 23:39 WBC (3.8-10.6) k/uL RBC (4.30-5.90) m/uL Hgb (13.0-17.5) gm/dL Hct (39.0-53.0) % ABG pO2 (83-108) mmHg ABG O2 Saturation (94-97) % Sodium (137-145) mmol/L Carbon Dioxide (22-30) mmol/L BUN (9-20) mg/dL Creatinine (0.66-1.25) mg/dL Glucose (74-99) mg/dL POC Glucose (mg/dL) 215 H 223 H 240 H (75-99) mg/dL Calcium (8.4-10.2) mg/dL 12/26/21 12/26/21 12/26/21 Range/Units 04:05 04:05 05:47 WBC 15.6 H (3.8-10.6) k/uL RBC 2.59 L (4.30-5.90) m/uL Hgb 8.1 L (13.0-17.5) gm/dL Hct 24.8 L (39.0-53.0) % ABG pO2 (83-108) mmHg ABG O2 Saturation (94-97) % Sodium 135 L (137-145) mmol/L Carbon Dioxide 19 L (22-30) mmol/L BUN 117 H* (9-20) mg/dL Creatinine 4.38 H (0.66-1.25) mg/dL Glucose 190 H (74-99) mg/dL POC Glucose (mg/dL) 194 H (75-99) mg/dL Calcium 5.1 L* (8.4-10.2) mg/dL 12/26/21 Range/Units 05:56 WBC (3.8-10.6) k/uL RBC (4.30-5.90) m/uL Hgb (13.0-17.5) gm/dL Hct (39.0-53.0) % ABG pO2 116 H (83-108) mmHg ABG O2 Saturation 98.3 H (94-97) % Sodium (137-145) mmol/L Carbon Dioxide (22-30) mmol/L BUN (9-20) mg/dL Creatinine (0.66-1.25) mg/dL Glucose (74-99) mg/dL POC Glucose (mg/dL) (75-99) mg/dL Calcium (8.4-10.2) mg/dL Microbiology - Last 24 Hours (Table) 03/25/22 16:53 Gram Stain - Final Sputum Sputum Culture - Final Irma albicans 12/24/21 01:00 Urine Culture - Final Urine,Voided Irma albicans 12/23/21 10:15 Blood Culture - Preliminary Blood No Growth after 48 hours 12/23/21 10:30 Blood Culture - Preliminary Blood No Growth after 48 hours
[2021-12-26 12:02] LABS: Glucose,Whole Blood 185 mg/dL (75-99)
--- NOTE | 2021-12-26 12:23 | P.PN ---
Subjective Progress Note Date: 12/26/21 Principal diagnosis: This is a 80-year-old male seen in consultation because of acute kidney injury secondary to ATN from sepsis. He is status post lysis of dictation with a previ ous colostomy and had a raw stomal hernia repair developed C. diff colitis as well as UTI with pseudomonas with stent in the ureter Currently on the ventilator without any change since yesterday on 40% FiO2 as well as on 3 inotropes including vasopressin and Levophed and dobutamine Blood pressure and vital signs are stable and urine output is 36 95 mL with a total output of 459 5 mL which includes ostomy No changes since yesterday stable creatinine at 4.38 with BUN of 117 Objective - Vital Signs Vital signs: Vital Signs Temp 96.2 F L 12/26/21 11:00 Pulse 60 12/26/21 11:00 Resp 26 H 12/26/21 11:00 BP 94/51 12/26/21 09:00 Pulse Ox 92 L 12/26/21 11:00 Intake & Output 12/25/21 12/26/21 12/26/21 18:59 06:59 18:59 Intake Total 8212.379 3088.474 733.75 Output Total 1505 3090 660 Balance 275.698 -1359.526 73.75 Weight 99 kg Intake: IV 940 1295 400 Dextrose 5% in Water 1, 900 975 300 000 ml @ 75 mls/hr IV . [id number] [facility] with Sodium Bicarb (1 Meq/ml) 150 ml Rx#:[id number] Sodium Chloride 0.9% 1, 40 220 000 ml @ 20 mls/hr IV . Q24H [facility] Rx#:[id number] metroNIDAZOLE-NS PMX 500 100 100 mg In Saline 1 100ml.bag @ 100 mls/hr IVPB Q8HR [facility] Rx#:[id number] Intake, IV Titration 800.698 435.474 333.75 Amount Cefepime 1 gm In Sodium 50 Chloride 0.9% 50 ml @ 12. 5 mls/hr IVPB Q12HR [facility] Rx#:[id number] Furosemide 100 mg In 138 200 83.75 Sodium Chloride 0.9% 90 ml @ 15 MG/HR 15 mls/hr IV .Q6H40M [facility] Rx#: [id number] Norepinephrine 32 mg In 339.673 40.949 Sodium Chloride 0.9% 218 ml @ 0.05 MCG/KG/MIN 2.18 mls/hr IV .Q24H [facility] Rx#: [id number] propofoL 1,000 mg In 323.025 194.525 200 Empty Bag 1 bag @ 5 MCG/ KG/MIN 2.85 mls/hr IV . Q24H [facility] Rx#:[id number] Tube Feeding 40 Output: Gastric Drainage 900 50 Urine 1505 2190 610 Other: Voiding Method Indwelling Catheter Indwelling Catheter Indwelling Catheter ABP, PAP, CO, CI - Last Documented Arterial Blood Pressure 119/39 On examination his sedated on the ventilator at 40%. No facial asymmetry noted Lungs are clear to auscultation fair air entry bilaterally Heart sounds unremarkable no murmur rub gallop Abdomen soft ostomy. Extremity exam was moderate to severe edema including scrotal edema Warm Touch - Labs CBC & Chem 7: 12/26/21 04:05 12/26/21 04:05 Labs: Abnormal Lab Results - Last 24 Hours (Table) 12/25/21 12/25/21 12/26/21 Range/Units 17:46 23:39 04:05 WBC 15.6 H (3.8-10.6) k/uL RBC 2.59 L (4.30-5.90) m/uL Hgb 8.1 L (13.0-17.5) gm/dL Hct 24.8 L (39.0-53.0) % ABG pO2 (83-108) mmHg ABG O2 Saturation (94-97) % Sodium (137-145) mmol/L Carbon Dioxide (22-30) mmol/L BUN (9-20) mg/dL Creatinine (0.66-1.25) mg/dL Glucose (74-99) mg/dL POC Glucose (mg/dL) 223 H 240 H (75-99) mg/dL Calcium (8.4-10.2) mg/dL 12/26/21 12/26/21 12/26/21 Range/Units 04:05 05:47 05:56 WBC (3.8-10.6) k/uL RBC (4.30-5.90) m/uL Hgb (13.0-17.5) gm/dL Hct (39.0-53.0) % ABG pO2 116 H (83-108) mmHg ABG O2 Saturation 98.3 H (94-97) % Sodium 135 L (137-145) mmol/L Carbon Dioxide 19 L (22-30) mmol/L BUN 117 H* (9-20) mg/dL Creatinine 4.38 H (0.66-1.25) mg/dL Glucose 190 H (74-99) mg/dL POC Glucose (mg/dL) 194 H (75-99) mg/dL Calcium 5.1 L* (8.4-10.2) mg/dL 12/26/21 Range/Units 12:00 WBC (3.8-10.6) k/uL RBC (4.30-5.90) m/uL Hgb (13.0-17.5) gm/dL Hct (39.0-53.0) % ABG pO2 (83-108) mmHg ABG O2 Saturation (94-97) % Sodium (137-145) mmol/L Carbon Dioxide (22-30) mmol/L BUN (9-20) mg/dL Creatinine (0.66-1.25) mg/dL Glucose (74-99) mg/dL POC Glucose (mg/dL) 185 H (75-99) mg/dL Calcium (8.4-10.2) mg/dL Microbiology - Last 24 Hours (Table) 12/24/21 16:53 Gram Stain - Final Sputum Sputum Culture - Final Irma albicans 12/24/21 01:00 Urine Culture - Final Urine,Voided Irma albicans 12/23/21 10:15 Blood Culture - Preliminary Blood No Growth after 48 hours 12/23/21 10:30 Blood Culture - Preliminary Blood No Growth after 48 hours Assessment and Plan Assessment: Impression 1. ATN secondary to sepsis, nonoliguric with creatinine going up to yesterday and 4.38 this morning. Labs are stable enough to hold off dialysis. He is not in CHF. As he is hemodynamically getting better with less and less need for inotropic, therefore it is better to wait and see if he can resolve his acute kidney injury 2. Mild degree of gap and non-gap acidosis from acute kidney injury, some loss of bicarb in the ostomy 4. UTI with pseudomonas with the stent in the ureter 5. C. diff colitis improving 6. Status post lysis of adhesion and previous colostomy and parastomal hernia repair. 7. Significant edema 8. Anemia with hemoglobin of 8.3 > 8.1 Recommendation 1. Continue to wean him off of the inotropes. 2. We'll watch him and hold dialysis he has a temporary Humphrey dialysis catheter in the right groin. 3. Continue Lasix drip
[2021-12-26] MEDS: DEXTROSE 5% IN WATER 1,000 ML with SODIUM BICARB (1 MEQ/ML) 150 ML IV SCH (12:55)
[2021-12-26] MEDS ORDERED: CALCIUM GLUCONATE IN NACL 2 GM in SALINE 1 100ML.BAG IVPB ONE (13:00)
--- NOTE | 2021-12-26 13:25 | P.PN ---
Subjective Progress Note Date: 12/26/21 Principal diagnosis: Family is at bedside. His kidneys have improved. He is stable. Discussion of nutrition and TPN as an alternative described. Discussion of maximal surgical care reviewed. Family friend at bedside. Recommend palliative care. Objective - Vital Signs Vital signs: Vital Signs Temp 96.5 F L 12/26/21 12:00 Pulse 60 12/26/21 13:00 Resp 26 H 12/26/21 13:00 BP 94/51 12/26/21 09:00 Pulse Ox 92 L 12/26/21 13:00 Intake & Output 12/25/21 12/26/21 12/26/21 18:59 06:59 18:59 Intake Total 8176.986 6075.474 918.425 Output Total 1505 3090 885 Balance 275.698 -1359.526 33.425 Weight 99 kg Intake: IV 940 1295 550 Dextrose 5% in Water 1, 900 975 450 000 ml @ 75 mls/hr IV . [id number] [facility] with Sodium Bicarb (1 Meq/ml) 150 ml Rx#:[id number] Sodium Chloride 0.9% 1, 40 220 000 ml @ 20 mls/hr IV . Q24H [facility] Rx#:[id number] metroNIDAZOLE-NS PMX 500 100 100 mg In Saline 1 100ml.bag @ 100 mls/hr IVPB Q8HR [facility] Rx#:[id number] Intake, IV Titration 800.698 435.474 368.425 Amount Cefepime 1 gm In Sodium 50 Chloride 0.9% 50 ml @ 12. 5 mls/hr IVPB Q12HR [facility] Rx#:[id number] Furosemide 100 mg In 138 200 83.75 Sodium Chloride 0.9% 90 ml @ 15 MG/HR 15 mls/hr IV .Q6H40M [facility] Rx#: [id number] Norepinephrine 32 mg In 339.673 40.949 Sodium Chloride 0.9% 218 ml @ 0.05 MCG/KG/MIN 2.18 mls/hr IV .Q24H [facility] Rx#: [id number] propofoL 1,000 mg In 323.025 194.525 234.675 Empty Bag 1 bag @ 5 MCG/ KG/MIN 2.85 mls/hr IV . Q24H [facility] Rx#:[id number] Tube Feeding 40 Output: Gastric Drainage 900 50 Urine 1505 2190 835 Other: Voiding Method Indwelling Catheter Indwelling Catheter Indwelling Catheter ABP, PAP, CO, CI - Last Documented Arterial Blood Pressure 109/38 - Labs CBC & Chem 7: 12/26/21 04:05 12/26/21 04:05 Labs: Abnormal Lab Results - Last 24 Hours (Table) 12/25/21 12/25/21 12/26/21 Range/Units 17:46 23:39 04:05 WBC 15.6 H (3.8-10.6) k/uL RBC 2.59 L (4.30-5.90) m/uL Hgb 8.1 L (13.0-17.5) gm/dL Hct 24.8 L (39.0-53.0) % ABG pO2 (83-108) mmHg ABG O2 Saturation (94-97) % Sodium (137-145) mmol/L Carbon Dioxide (22-30) mmol/L BUN (9-20) mg/dL Creatinine (0.66-1.25) mg/dL Glucose (74-99) mg/dL POC Glucose (mg/dL) 223 H 240 H (75-99) mg/dL Calcium (8.4-10.2) mg/dL 12/26/21 12/26/21 12/26/21 Range/Units 04:05 05:47 05:56 WBC (3.8-10.6) k/uL RBC (4.30-5.90) m/uL Hgb (13.0-17.5) gm/dL Hct (39.0-53.0) % ABG pO2 116 H (83-108) mmHg ABG O2 Saturation 98.3 H (94-97) % Sodium 135 L (137-145) mmol/L Carbon Dioxide 19 L (22-30) mmol/L BUN 117 H* (9-20) mg/dL Creatinine 4.38 H (0.66-1.25) mg/dL Glucose 190 H (74-99) mg/dL POC Glucose (mg/dL) 194 H (75-99) mg/dL Calcium 5.1 L* (8.4-10.2) mg/dL 12/26/21 Range/Units 12:00 WBC (3.8-10.6) k/uL RBC (4.30-5.90) m/uL Hgb (13.0-17.5) gm/dL Hct (39.0-53.0) % ABG pO2 (83-108) mmHg ABG O2 Saturation (94-97) % Sodium (137-145) mmol/L Carbon Dioxide (22-30) mmol/L BUN (9-20) mg/dL Creatinine (0.66-1.25) mg/dL Glucose (74-99) mg/dL POC Glucose (mg/dL) 185 H (75-99) mg/dL Calcium (8.4-10.2) mg/dL Microbiology - Last 24 Hours (Table) 12/23/21 10:30 Blood Culture - Preliminary Blood No Growth after 72 hours 12/23/21 10:15 Blood Culture - Preliminary Blood No Growth after 72 hours 12/24/21 16:53 Gram Stain - Final Sputum Sputum Culture - Final Irma albicans 12/24/21 01:00 Urine Culture - Final Urine,Voided Irma albicans Assessment and Plan (1) Septic shock Current Visit: Yes Status: Acute Code(s): A41.9 - SEPSIS, UNSPECIFIED ORGANISM; R65.21 - SEVERE SEPSIS WITH SEPTIC SHOCK SNOMED Code(s): 08394885 (2) Atrial fibrillation Current Visit: Yes Status: Acute Code(s): I48.91 - UNSPECIFIED ATRIAL FIBRILLATION SNOMED Code(s): 72545405 (3) Clostridium difficile colitis Current Visit: Yes Status: Acute Code(s): A04.72 - ENTEROCOLITIS D/T CLOSTRIDIUM DIFFICILE, NOT SPCF RECUR SNOMED Code(s): 038101243 (4) Respiratory failure Current Visit: Yes Status: Acute Code(s): J96.90 - RESPIRATORY FAILURE, UNSP, UNSP W HYPOXIA OR HYPERCAPNIA SNOMED Code(s): 177958366 (5) SBO (small bowel obstruction) Current Visit: Yes Status: Acute Code(s): K56.609 - UNSP INTESTNL OBST, UNSP TO PARTIAL VERSUS COMPLETE OBST SNOMED Code(s): 067315805 (6) Sepsis Current Visit: Yes Status: Acute Code(s): A41.9 - SEPSIS, UNSPECIFIED ORGANISM SNOMED Code(s): 61811042 (7) CHF (congestive heart failure) Current Visit: No Status: Acute Code(s): I50.9 - HEART FAILURE, UNSPECIFIED SNOMED Code(s): 93962822
[2021-12-26] MEDS: SODIUM CHLORIDE 0.9% 150 ML with VASOPRESSIN 60 UNIT IV SCH ×2 (16:06)
[2021-12-26] MEDS: DOBUTamine DRIP 500 MG in DEXTROSE/WATER 1 250ML.BAG IV SCH (16:37)
[2021-12-26 18:06] LABS: Glucose,Whole Blood 169 mg/dL (75-99)
[2021-12-26] MEDS: SODIUM CHLORIDE 0.9% 1,000 ML IV SCH (18:12)
[2021-12-26] MEDS: NOREPINEPHRINE 32 MG in SODIUM CHLORIDE 0.9% 218 ML IV SCH (18:38)
[2021-12-26] MEDS: ATORVASTATIN 40 MG TAB PO SCH (20:42)
[2021-12-26] MEDS: INSULIN DETEMIR (LEVEMIR) 100 UNIT/ML SYR SQ SCH (20:43)
[2021-12-26] MEDS ORDERED: HYDROCORTISONE SUCCINATE 100 MG/2 ML VIAL IV SCH (21:00)
[2021-12-26] MEDS: TAMSULOSIN 0.4 MG CAP.ER.24H PO SCH (21:04)
--- NOTE | 2021-12-26 22:34 | P.PN ---
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 diff colitis, patient subsequently did have a respiratory failure requiring intubation and hypotension requiring pressor support. On today's evaluation that is 12/26/2021 the patient continues to be afebrile, the patient remains to be debated on the vent, FiO2 is stable at 40%, no significant purulent secretions through the ET, patient is requiring less pressor support per the nursing staff , the patient did not have output in the colostomy and did have output through his NG tube Objective - Vital Signs Vital signs: Vital Signs Temp 96.5 F L 12/26/21 12:00 Pulse 59 L 12/26/21 14:00 Resp 23 12/26/21 14:00 BP 114/60 12/26/21 14:00 Pulse Ox 92 L 12/26/21 14:00 Intake & Output 12/25/21 12/26/21 12/26/21 18:59 06:59 18:59 Intake Total 1390.796 5969.474 1173.011 Output Total 1505 3090 1375 Balance 275.698 -1359.526 -201.989 Weight 99 kg Intake: IV 940 1295 625 Dextrose 5% in Water 1, 900 975 525 000 ml @ 75 mls/hr IV . [id number] [facility] with Sodium Bicarb (1 Meq/ml) 150 ml Rx#:[id number] Sodium Chloride 0.9% 1, 40 220 000 ml @ 20 mls/hr IV . Q24H [facility] Rx#:[id number] metroNIDAZOLE-NS PMX 500 100 100 mg In Saline 1 100ml.bag @ 100 mls/hr IVPB Q8HR [facility] Rx#:[id number] Intake, IV Titration 800.698 435.474 548.011 Amount Calcium Gluconate in NaCl 100 2 gm In Saline 1 100ml. bag @ 100 mls/hr IVPB ONCE ONE Rx#:[id number] Cefepime 1 gm In Sodium 50 Chloride 0.9% 50 ml @ 12. 5 mls/hr IVPB Q12HR [facility] Rx#:[id number] Furosemide 100 mg In 138 200 83.75 Sodium Chloride 0.9% 90 ml @ 15 MG/HR 15 mls/hr IV .Q6H40M [facility] Rx#: [id number] Norepinephrine 32 mg In 339.673 40.949 69.136 Sodium Chloride 0.9% 218 ml @ 0.05 MCG/KG/MIN 2.18 mls/hr IV .Q24H [facility] Rx#: [id number] propofoL 1,000 mg In 323.025 194.525 245.125 Empty Bag 1 bag @ 5 MCG/ KG/MIN 2.85 mls/hr IV . Q24H [facility] Rx#:[id number] Tube Feeding 40 Output: Gastric Drainage 900 350 Urine 1505 2190 1025 Other: Voiding Method Indwelling Catheter Indwelling Catheter Indwelling Catheter ABP, PAP, CO, CI - Last Documented Arterial Blood Pressure 130/47 - Exam GENERAL DESCRIPTION: An elderly male intubated on the vent RESPIRATORY SYSTEM: Unlabored breathing , decreased breath sounds at bases HEART: S1 S2 regular rate and rhythm , ABDOMEN: Soft , no tenderness EXTREMITIES: 2+ edema feet - Labs CBC & Chem 7: 12/26/21 04:05 12/26/21 04:05 Labs: Abnormal Lab Results - Last 24 Hours (Table) 12/25/21 12/25/21 12/26/21 Range/Units 17:46 23:39 04:05 WBC 15.6 H (3.8-10.6) k/uL RBC 2.59 L (4.30-5.90) m/uL Hgb 8.1 L (13.0-17.5) gm/dL Hct 24.8 L (39.0-53.0) % ABG pO2 (83-108) mmHg ABG O2 Saturation (94-97) % Sodium (137-145) mmol/L Carbon Dioxide (22-30) mmol/L BUN (9-20) mg/dL Creatinine (0.66-1.25) mg/dL Glucose (74-99) mg/dL POC Glucose (mg/dL) 223 H 240 H (75-99) mg/dL Calcium (8.4-10.2) mg/dL 12/26/21 12/26/21 12/26/21 Range/Units 04:05 05:47 05:56 WBC (3.8-10.6) k/uL RBC (4.30-5.90) m/uL Hgb (13.0-17.5) gm/dL Hct (39.0-53.0) % ABG pO2 116 H (83-108) mmHg ABG O2 Saturation 98.3 H (94-97) % Sodium 135 L (137-145) mmol/L Carbon Dioxide 19 L (22-30) mmol/L BUN 117 H* (9-20) mg/dL Creatinine 4.38 H (0.66-1.25) mg/dL Glucose 190 H (74-99) mg/dL POC Glucose (mg/dL) 194 H (75-99) mg/dL Calcium 5.1 L* (8.4-10.2) mg/dL 12/26/21 Range/Units 12:00 WBC (3.8-10.6) k/uL RBC (4.30-5.90) m/uL Hgb (13.0-17.5) gm/dL Hct (39.0-53.0) % ABG pO2 (83-108) mmHg ABG O2 Saturation (94-97) % Sodium (137-145) mmol/L Carbon Dioxide (22-30) mmol/L BUN (9-20) mg/dL Creatinine (0.66-1.25) mg/dL Glucose (74-99) mg/dL POC Glucose (mg/dL) 185 H (75-99) mg/dL Calcium (8.4-10.2) mg/dL Microbiology - Last 24 Hours (Table) 12/23/21 10:30 Blood Culture - Preliminary Blood No Growth after 72 hours 12/23/21 10:15 Blood Culture - Preliminary Blood No Growth after 72 hours 12/24/21 16:53 Gram Stain - Final Sputum Sputum Culture - Final Irma albicans 12/24/21 01:00 Urine Culture - Final Urine,Voided Irma albicans Assessment and Plan (1) Sepsis Current Visit: Yes Status: Acute Code(s): A41.9 - SEPSIS, UNSPECIFIED ORGANISM SNOMED Code(s): 39651986 Plan: 1patient with sepsis/septic shock likely secondary to abdominal source in this patient who did have a laparotomy for a mechanical small bowel obstruction requiring lysis of adhesion and small bowel resection though repeat CAT scan done about 10 days still show significant dilatation and more likely abdominal source with a clinical course also complicated by development of C. difficile colitis. 2blood culture has been negative so far sputum and urine culture are growing Irma possible colonization 3patient is currently being treated with vancomycin to 500 every 6 hours and along with IV Flagyl along with cefepime at the bedside questions concerned were answered Time with Patient: Less than 30
[2021-12-26 23:42] LABS: Glucose,Whole Blood 168 mg/dL (75-99)
[2021-12-27 05:00] LABS: HCT 26.5 % (39.0-53.0); HGB 8.7 gm/dL (13.0-17.5); Hypochromasia Slight; MCH 30.6 pg (25.0-35.0); MCHC 32.6 g/dL (31.0-37.0); MCV 93.8 fL (80.0-100.0); Mean Platelet Volume 11.3; Platelet Count 239 k/uL (150-450); RBC 2.83 m/uL (4.30-5.90); RDW 14.8 % (11.5-15.5); WBC 20.8 k/uL (3.8-10.6)
[2021-12-27] MEDS: FUROSEMIDE 100 MG in SODIUM CHLORIDE 0.9% 90 ML IV SCH (05:09)
[2021-12-27 05:18] LABS: Potassium 3.4 mmol/L (3.5-5.1)
[2021-12-27 05:32] LABS: Calcium 4.7 mg/dL (8.4-10.2)
[2021-12-27] MEDS: INSULIN ASPART (NovoLOG) 100 UNIT/ML VIAL SQ SCH (05:46)
[2021-12-27] MEDS: DEXTROSE 5% IN WATER 1,000 ML with SODIUM BICARB (1 MEQ/ML) 150 ML IV SCH (05:59)
[2021-12-27 06:09] LABS: ABG Base Excess 0.3 mmol/L; ABG HCO3 24 mmol/L (21-25); ABG Oxygen Saturation 94.4 % (94-97); ABG PCO2 32 mmHg (35-45); ABG PH 7.48 (7.35-7.45); ABG PO2 72 mmHg (83-108); ABG TCO2 25 mmol/L (19-24)
[2021-12-27] MEDS ORDERED: AMIODARONE 450 MG in DEXTROSE 5% IN WATER 250 ML IV SCH ×2 (07:00)
--- NOTE | 2021-12-27 07:24 | XR ---
EXAMINATION TYPE: XR chest 1V portable DATE OF EXAM: 12/27/2021 Comparison: 12/26/2021 Clinical History: 80-year-old male Tube placement Findings: Left anterior chest wall AICD generator with right atrial and right ventricular leads. Heart upper li mits of normal in size. ET tube tip 3.7 cm from the yosi. Left subclavian CVC tip at the lower SVC level. Focal bibasilar opacities persist but there is some improving aeration at the right base. Impression: Continued bibasilar airspace disease though with some interval improvement on the right.
[2021-12-27 08:09] LABS: Allen Test Performed? no
--- NOTE | 2021-12-27 08:39 | P.PN ---
Subjective PROGRESS NOTE The patient is an 80-year-old male with known history of CAD status post stenting, cardiomyopathy him of ventricle tachycardia and ICD implantation who underwent exploratory laparotomy and colostomy. He had episode of recurrent ventricular tachycardia, has been stable after the addition of amiodarone and mexiletine. He continues to be in sinus mechanism. His blood pressure is stable. He continues to have peripheral edema but his urinary output has been stable. He denies any chest discomfort or dizziness. He is confused at times. There is no further evidence of ventricular tachycardia. His colostomy is working. He continues to be on amiodarone 400 mg twice a day, Lipitor 40 mg daily, Lasix 40 mg IV every 8 hours insulin, mexiletine 200 mg every 8 hours, spironolactone 12-1/2 mg daily December 22: The patient is more confused today, continues to be in sinus mechanism with no evidence of ventricular tachycardia or atrial fibrillation. He continues to be on dobutamine. His blood pressure is on the low side. His colostomy is functioning. He continues to have significant peripheral edema. He is receiving IV Lasix. There is no evidence of GI bleeding. In the past his ejection fraction was 40-45%, his most recent echocardiogram was suboptimal and no evaluation of his LV systolic function could be made. He continues to be on amiodarone 400 mg twice a day, mexiletine 200 mg every 8 hours, aspirin once a day in addition to Lasix 40 mg IV every 8 hours. December 23: The patient became more somnolent with respiratory distress, requiring mechanical ventilation. He is intubated and sedated. He continues to be on IV dobutamine and norepinephrine. He continues to be in sinus mechanism with no evidence of atrial or ventricular arrhythmia. An echocardiogram performed yesterday showed an ejection fraction of 45-50% with mild aortic stenosis and tricuspid regurgitation with mild pulmonary hypertension. He has good urine output but continues to have significant edema. He continues to be on amiodarone 400 mg twice a day, mexiletine 200 mg 3 times a day, Lasix 40 mg daily, Lipitor 40 mg daily, aspirin and Aldactone 12-1/2 mg daily. December 24: The patient remains intubated and sedated. He continues to be on IV dobutamine, nor epinephrine and vasopressin. His blood pressure has been stable and he cont inues to be in sinus mechanism. He has good urinary output but his renal functions are worse. He had no further episodes of ventricle tachycardia. He was evaluated by nephrology for possible dialysis if needed. He continues to have significant edema. His colostomy is functioning. Patient has findings suggestive of sepsis. He continues to receive TPN. He continues to be on mexiletine 200 mg 3 times a day, amiodarone 200 mg twice a day, Lipitor 40 mg daily and Aldactone 12.5 mg daily December 25: The patient remains intubated, sedated on IV Lasix drip and continues to be on vasopressor with severe peripheral edema. His urinary output has been stable. There is no further episodes of ventricular tachycardia. He continues to be on amiodarone 200 mg twice a day and mexiletine 200 mg 3 times a day. He has been evaluated for possible dialysis and that is on hold for now. December 26, The patient remains intubated and sedated with good urinary output. He is paced at times. He has no further episodes of ventricle tachycardia. The dose of his norepinephrine and vasopressin are decreased. He has no atrial fibrillation. He continues to be on amiodarone 200 mg twice a day in addition to mexiletine. 12/27 Patient seen and examined. Patient currently on a low dose of norepinephrine 0 .06 as well as a Lasix drip at 15 mg per hour. Patient's tube feeds have been stopped secondary to high residuals. Urine output remains marginal at approximate 20 mL per hour. Patient with FiO2 40% and a PEEP of 5. PHYSICAL EXAMINATION: Intubated and sedated Vitals reviewed LUNGS: Clear to auscultation anteriorly with mild decrease breath sounds at the bases HEART: Regular rate and rhythm, S1, S2. No S3. systolic ejection murmur at the base ABDOMEN: Soft, no organomegaly, colostomy bag in place EXTREMETIES: 3+ edema with scrotal edema, mildly improved LAB: BUN and creatinine 4.38, potassium 4.2, hemoglobin 8.1 IMPRESSION: 1. Status post exploratory laparotomy and colostomy 2. Ventricle tachycardia, stable on present regimen 3. History of coronary artery disease and cardiomyopathy. Most recent echocardiogram showed an ejection fraction of 40-45% 4. Worsening renal failure with good urinary output 5. Paroxysmal atrial fibrillation, now in sinus mechanism 6. Anemia 7. Third spacing with peripheral edema 8. Respiratory failure with fluid overload with decrease in mentation. Urinary output at this time stable. PLAN: 1. Continue IV Lasix 2. Wean IV pressors as tolerated 3. Continue present dose of amiodarone 4. Once off vasopressors start beta christelle 5. Follow renal functions 6. Prognosis grave Objective - Vital Signs Vital signs: Vital Signs Temp 97.8 F 12/27/21 04:00 Pulse 80 12/27/21 07:00 Resp 35 H 12/27/21 07:00 BP 98/56 12/27/21 07:00 Pulse Ox 94 L 12/27/21 07:00 Intake & Output 12/26/21 12/27/21 12/27/21 18:59 06:59 18:59 Intake Total 2057.617 1463.074 95 Output Total 1820 1340 25 Balance 237.617 123.074 70 Weight 99 kg Intake: IV 1015 1140 95 Dextrose 5% in Water 1, 825 900 75 000 ml @ 75 mls/hr IV . [id number] [facility] with Sodium Bicarb (1 Meq/ml) 150 ml Rx#:[id number] Sodium Chloride 0.9% 1, 90 240 20 000 ml @ 20 mls/hr IV . Q24H [facility] Rx#:[id number] metroNIDAZOLE-NS PMX 500 100 mg In Saline 1 100ml.bag @ 100 mls/hr IVPB Q8HR [facility] Rx#:[id number] Intake, IV Titration 962.617 203.074 Amount Calcium Gluconate in NaCl 100 2 gm In Saline 1 100ml. bag @ 100 mls/hr IVPB ONCE ONE Rx#:[id number] Cefepime 1 gm In Sodium 50 Chloride 0.9% 50 ml @ 12. 5 mls/hr IVPB Q12HR [facility] Rx#:[id number] DOBUTamine DRIP 500 mg In 208.087 Dextrose/Water 1 250ml. bag @ 2.5 MCG/KG/MIN 6. 975 mls/hr IV .Q24H [facility] Rx#:[id number] Furosemide 100 mg In 183.75 184.5 Sodium Chloride 0.9% 90 ml @ 15 MG/HR 15 mls/hr IV .Q6H40M [facility] Rx#: [id number] Norepinephrine 32 mg In 75.655 18.574 Sodium Chloride 0.9% 218 ml @ 0.05 MCG/KG/MIN 2.18 mls/hr IV .Q24H [facility] Rx#: [id number] metroNIDAZOLE-NS PMX 500 100 mg In Saline 1 100ml.bag @ 100 mls/hr IVPB Q8HR [facility] Rx#:[id number] propofoL 1,000 mg In 245.125 Empty Bag 1 bag @ 5 MCG/ KG/MIN 2.85 mls/hr IV . Q24H [facility] Rx#:[id number] Oral 120 Other 80 Output: Gastric Drainage 350 50 Urine 1470 1270 25 Stool 20 Other: Voiding Method Indwelling Catheter Indwelling Catheter ABP, PAP, CO, CI - Last Documented Arterial Blood Pressure 120/41 - Labs CBC & Chem 7: 12/27/21 04:45 12/27/21 04:35 Labs: Abnormal Lab Results - Last 24 Hours (Table) 12/26/21 12/26/21 12/26/21 Range/Units 12:00 18:05 23:40 WBC (3.8-10.6) k/uL RBC (4.30-5.90) m/uL Hgb (13.0-17.5) gm/dL Hct (39.0-53.0) % ABG pH (7.35-7.45) ABG pCO2 (35-45) mmHg ABG pO2 (83-108) mmHg ABG Total CO2 (19-24) mmol/L Sodium (137-145) mmol/L Potassium (3.5-5.1) mmol/L BUN (9-20) mg/dL Creatinine (0.66-1.25) mg/dL Glucose (74-99) mg/dL POC Glucose (mg/dL) 185 H 169 H 168 H (75-99) mg/dL Calcium (8.4-10.2) mg/dL Ionized Calcium [place] (4.5-5.3) mg/dL 12/27/21 12/27/21 12/27/21 Range/Units 04:35 04:45 05:45 WBC 20.8 H (3.8-10.6) k/uL RBC 2.83 L (4.30-5.90) m/uL Hgb 8.7 L (13.0-17.5) gm/dL Hct 26.5 L (39.0-53.0) % ABG pH (7.35-7.45) ABG pCO2 (35-45) mmHg ABG pO2 (83-108) mmHg ABG Total CO2 (19-24) mmol/L Sodium 134 L (137-145) mmol/L Potassium 3.4 L (3.5-5.1) mmol/L BUN 120 H* (9-20) mg/dL Creatinine 4.28 H (0.66-1.25) mg/dL Glucose 143 H (74-99) mg/dL POC Glucose (mg/dL) (75-99) mg/dL Calcium 4.7 L* (8.4-10.2) mg/dL Ionized Calcium [place] 2.9 L* (4.5-5.3) mg/dL 12/27/21 Range/Units 05:52 WBC (3.8-10.6) k/uL RBC (4.30-5.90) m/uL Hgb (13.0-17.5) gm/dL Hct (39.0-53.0) % ABG pH 7.48 H (7.35-7.45) ABG pCO2 32 L (35-45) mmHg ABG pO2 72 L (83-108) mmHg ABG Total CO2 25 H (19-24) mmol/L Sodium (137-145) mmol/L Potassium (3.5-5.1) mmol/L BUN (9-20) mg/dL Creatinine (0.66-1.25) mg/dL Glucose (74-99) mg/dL POC Glucose (mg/dL) (75-99) mg/dL Calcium (8.4-10.2) mg/dL Ionized Calcium Liberty (4.5-5.3) mg/dL Microbiology - Last 24 Hours (Table) 12/23/21 10:30 Blood Culture - Preliminary Blood No Growth after 72 hours 12/23/21 10:15 Blood Culture - Preliminary Blood No Growth after 72 hours 12/24/21 16:53 Gram Stain - Final Sputum Sputum Culture - Final Irma albicans
[2021-12-27 09:18] VITALS: TEMP 97.5
--- NOTE | 2021-12-27 09:55 | P.PN ---
Subjective Patient is seen in follow-up for acute kidney injury on chronic kidney disease. Creatinine stable. Remains on Levophed, vasopressin as well as dobutamine. Also on Lasix drip and bicarbonate drip. Intubated. Urine output 20-40 mL an hour. Vital signs are stable. On vasopressor support. HEENT: Intubated. LUNGS: Breath sounds decreased. HEART: Regular rhythm. ABDOMEN: Distention noted. EXTREMITITES: 2+ edema. Objective - Vital Signs Vital signs: Vital Signs Temp 97.5 F L 12/27/21 08:00 Pulse 82 12/27/21 09:00 Resp 35 H 12/27/21 09:00 BP 101/57 12/27/21 09:00 Pulse Ox 94 L 12/27/21 09:00 Intake & Output 12/26/21 12/27/21 12/27/21 18:59 06:59 18:59 Intake Total 2057.617 1463.074 95 Output Total 1820 1340 25 Balance 237.617 123.074 70 Weight 99 kg Intake: IV 1015 1140 95 Dextrose 5% in Water 1, 825 900 75 000 ml @ 75 mls/hr IV . [id number] [facility] with Sodium Bicarb (1 Meq/ml) 150 ml Rx#:[id number] Sodium Chloride 0.9% 1, 90 240 20 000 ml @ 20 mls/hr IV . Q24H [facility] Rx#:[id number] metroNIDAZOLE-NS PMX 500 100 mg In Saline 1 100ml.bag @ 100 mls/hr IVPB Q8HR [facility] Rx#:[id number] Intake, IV Titration 962.617 203.074 Amount Calcium Gluconate in NaCl 100 2 gm In Saline 1 100ml. bag @ 100 mls/hr IVPB ONCE ONE Rx#:[id number] Cefepime 1 gm In Sodium 50 Chloride 0.9% 50 ml @ 12. 5 mls/hr IVPB Q12HR [facility] Rx#:[id number] DOBUTamine DRIP 500 mg In 208.087 Dextrose/Water 1 250ml. bag @ 2.5 MCG/KG/MIN 6. 975 mls/hr IV .Q24H [facility] Rx#:[id number] Furosemide 100 mg In 183.75 184.5 Sodium Chloride 0.9% 90 ml @ 15 MG/HR 15 mls/hr IV .Q6H40M [facility] Rx#: [id number] Norepinephrine 32 mg In 75.655 18.574 Sodium Chloride 0.9% 218 ml @ 0.05 MCG/KG/MIN 2.18 mls/hr IV .Q24H [facility] Rx#: [id number] metroNIDAZOLE-NS PMX 500 100 mg In Saline 1 100ml.bag @ 100 mls/hr IVPB Q8HR [facility] Rx#:[id number] propofoL 1,000 mg In 245.125 Empty Bag 1 bag @ 5 MCG/ KG/MIN 2.85 mls/hr IV . Q24H [facility] Rx#:[id number] Oral 120 Other 80 Output: Gastric Drainage 350 50 Urine 1470 1270 25 Stool 20 Other: Voiding Method Indwelling Catheter Indwelling Catheter Indwelling Catheter ABP, PAP, CO, CI - Last Documented Arterial Blood Pressure 91/38 - Labs CBC & Chem 7: 12/27/21 04:45 12/27/21 04:35 Labs: Abnormal Lab Results - Last 24 Hours (Table) 12/26/21 12/26/21 12/26/21 Range/Units 12:00 18:05 23:40 WBC (3.8-10.6) k/uL RBC (4.30-5.90) m/uL Hgb (13.0-17.5) gm/dL Hct (39.0-53.0) % ABG pH (7.35-7.45) ABG pCO2 (35-45) mmHg ABG pO2 (83-108) mmHg ABG Total CO2 (19-24) mmol/L Sodium (137-145) mmol/L Potassium (3.5-5.1) mmol/L BUN (9-20) mg/dL Creatinine (0.66-1.25) mg/dL Glucose (74-99) mg/dL POC Glucose (mg/dL) 185 H 169 H 168 H (75-99) mg/dL Calcium (8.4-10.2) mg/dL Ionized Calcium Liberty (4.5-5.3) mg/dL 12/27/21 12/27/21 12/27/21 Range/Units 04:35 04:45 05:45 WBC 20.8 H (3.8-10.6) k/uL RBC 2.83 L (4.30-5.90) m/uL Hgb 8.7 L (13.0-17.5) gm/dL Hct 26.5 L (39.0-53.0) % ABG pH (7.35-7.45) ABG pCO2 (35-45) mmHg ABG pO2 (83-108) mmHg ABG Total CO2 (19-24) mmol/L Sodium 134 L (137-145) mmol/L Potassium 3.4 L (3.5-5.1) mmol/L BUN 120 H* (9-20) mg/dL Creatinine 4.28 H (0.66-1.25) mg/dL Glucose 143 H (74-99) mg/dL POC Glucose (mg/dL) (75-99) mg/dL Calcium 4.7 L* (8.4-10.2) mg/dL Ionized Calcium Liberty 2.9 L* (4.5-5.3) mg/dL 12/27/21 Range/Units 05:52 WBC (3.8-10.6) k/uL RBC (4.30-5.90) m/uL Hgb (13.0-17.5) gm/dL Hct (39.0-53.0) % ABG pH 7.48 H (7.35-7.45) ABG pCO2 32 L (35-45) mmHg ABG pO2 72 L (83-108) mmHg ABG Total CO2 25 H (19-24) mmol/L Sodium (137-145) mmol/L Potassium (3.5-5.1) mmol/L BUN (9-20) mg/dL Creatinine (0.66-1.25) mg/dL Glucose (74-99) mg/dL POC Glucose (mg/dL) (75-99) mg/dL Calcium (8.4-10.2) mg/dL Ionized Calcium Liberty (4.5-5.3) mg/dL Microbiology - Last 24 Hours (Table) 12/23/21 10:30 Blood Culture - Preliminary Blood No Growth after 72 hours 12/23/21 10:15 Blood Culture - Preliminary Blood No Growth after 72 hours 12/24/21 16:53 Gram Stain - Final Sputum Sputum Culture - Final Irma albicans Assessment and Plan Plan: Assessment: 1. Acute kidney injury secondary to ATN secondary to septic shock and cardiorenal syndrome. Creatinine stable at 4.28 today. Urine output 20-40 mL an hour. 2. Acute on chronic systolic CHF with ejection fraction of 45-50%. 3. Volume overload. 4. Hypocalcemia secondary to acute kidney injury. 5. Hypokalemia from diuresis and IV bicarb. 6. Small bowel obstruction status post exploratory laparotomy on 12/09/2021. Currently has ileus. No feeding yet. 7. Acute possible respiratory failure. Intubated. 8. Pseudomonas UTI on antibiotics. Patient has a left ureteral stent. 9. C. diff colitis. Plan: Decrease bicarb drip to 50 mL an hour. Maintain Lasix drip. Wean vasopressors as able. Patient is currently hemodynamically unstable to tolerate renal replacement therapy. Per nurse, the [employer] had a discussion with the family and they will be coming in later this afternoon with plans to proceed with comfort measures.
--- NOTE | 2021-12-27 10:26 | P.PN ---
Subjective Progress Note Date: 12/27/21 Principal diagnosis: Respiratory failure. Reevaluated today on 12/24/2021. Patient remains intubated and mechanically ventilated. He is now on assist control rate of 22 tidal volume of 450 FiO2 45% and PEEP of 5. ABG showed a pO2 of 107 pCO2 41 pH of 7.26. Patient remains on bicarb drip, and I increased the bicarb drip to 75 mL per hour instead of 50 mL per hour. Patient remains on multiple drips including sodium bicarb drip, norepinephrine at 0.7 vasopressin at 0.04 Lasix at 10 mg per hour patient is on dobutamine at 5 mcg/kg/m and I cut it down to 2.5 he is also on propofol at 15 mcg/kg/m vasopressin at 0.04. His IV fluids at 50 mL per hour. Patient is receiving vital AF at 48 mL per hour. Chest x-ray continues to show evidence of bilateral interstitial edema/infiltrates, his urine output seems to be excellent he is putting out over 1 50 mL per hour, however his renal status seems to be a bit worse. His electrolytes showed hyperkalemia with a potassium of 5.5 bicarb is 16 but that will improve with increasing the bicarb drip. BUN is 100 creatinine 3.75. Family was updated on his condition yesterday, and the CODE STATUS was changed to DO NOT RESUSCITATE. Continues to have leukocytosis with WBC count of 20.3 hemoglobin is 9. Continue blood cultures and urine cultures are pending. In the meantime the patient is on Zosyn and cefepime for his Pseu domonas infection in the urine which was diagnosed back on 12/08 Patient was reevaluated today on 12/25/2021. Remains in the ICU intubated and mechanically ventilated. He is on assist control rate of 22 tidal volume 450 FiO2 40% PEEP of 5 however his rate was increased to 26, ABG showed a pO2 of 84 pCO2 of 44 pH of 7.26 his renal functioning seems to be worse today, BUN is up to 112 creatinine is 4.36. Seen by nephrology on consultation, and patient is now on vasopressin drip at 10 mg per hour. Continues to have leukocytosis with WBC of 43.3 hemoglobin is 8.3, blood cultures done recently are negative urine culture remains negative sputum is showing Irma albicans., Chest x-ray continues to show by basilar airspace disease, improving overall compared to the x-rays a few days ago. Patient remains on multiple drips including norepinephrine at 0.3 micrograms per kilo per minute, is on vasopressin at 0.04. Dobutamine at 2.5 mcg/kg/m propofol at 50 mcg/kg/m remains on bicarb drip at 75 mL/h and now he is on Lasix drip. Likely I don't believe there is much improvement in the last 24 hours, patient continues to have good urine output, and he is being considered for hemodialysis. As a matter of fact the patient did have dialysis catheter placement yesterday in the right groin done by vascular surgery Reevaluated today on 12/26/2021, patient remains in the ICU intubated and mec hanically ventilated. He is on assist control rate of 26 tidal volume 450 FiO2 40% and PEEP of 5. ABG showed a pO2 of 116 pCO2 38 pH of 7.38 WBC count is 15.6 hemoglobin 8.1 electrolytes are normal renal profile is worsening with a BUN up to 117 creatinine 4.38. Patient continues to have significant urinary output, however he remains quite swollen and edematous. And he is obviously third spaci ng because of his nutritional status and hypoalbuminemia. Patient is being followed by many consultants including cardiology, and nephrology. Blood cultures done in the last 48 hours were negative and remained negative his sputum cultures are showing Irma and his last urine culture from few weeks ago showed pseudomonas aeruginosa. Patient remains on metronidazole, he is also on cefepime, and on oral vancomycin. and those are being addressed by infectious disease on the case. Patient was placed on amiodarone by cardiology. And he remains on amiodarone. Remains on subcu heparin, and today on cutting down his Solu-Cortef to 50 mg IV push every 8 hours. Patient did have a dialysis catheter placed by vascular surgery, however no plans to start hemodialysis anytime soon. Chest x-ray is showing improvement in his interstitial edema/pneumonia. Patient remains on multiple drips including norepinephrine at 0.12 mcg/kg/m vasopressin at 0.02 units per minute bicarb drip at 75 mL per hour propofol at 50 mcg/kg/m Dobutrex at 2.5 mcg/kg/m Progress note dated 12/27/2021. This is an 80-year-old male, who was admitted back on December 08. He came in with a small bowel obstruction, acute kidney injury, and a ureteral stone with sepsis. He came to the intensive care unit on December 12, and was intubated for respiratory failure on December 22. The patient had an exploratory laparotomy on arch 10. The patient remains on mechanical ventilator. He is on the volume assist control mode, rate 26, tidal volume 450, FiO2 40%, and PEEP of 5. Blood gases show pO2 72, pCO2 32, and a pH of 7.48. Both gases are consistent with normoxemia, and a mild respiratory alkalosis. The patient's currently on dobutamine at 2.5 mcg/kg/m, dextrose, with 3 ampules of sodium bicarbonate at 75 mL an hour, and Lasix drip at 15 mg an hour, norepinephrine at 6 mcg/m, vasopressin at 0.02 units per minute, and the propofol has been off suggested a. The patient is poorly or not responsive. White count 20.8, hemoglobin 8.7, hematocrit 26.5, and platelet count 239,000. Sodium 134, potassium 3.4, chlorid es 99, CO2 22, anion gap is 13, BUN 120, and creatinine is 4.28. Ionized calcium is 2.9. Microbiologic studies back on December 08 were positive for Pseudomonas in the urine. Chest x-ray show some bibasilar infiltrates. The patient remains on cefepime and Flagyl. Objective - Vital Signs Vital signs: Vital Signs Temp 97.5 F L 12/27/21 08:00 Pulse 82 12/27/21 09:00 Resp 35 H 12/27/21 09:00 BP 101/57 12/27/21 09:00 Pulse Ox 94 L 12/27/21 09:00 Intake & Output 12/26/21 12/27/21 12/27/21 18:59 06:59 18:59 Intake Total 2057.617 1463.074 95 Output Total 1820 1340 25 Balance 237.617 123.074 70 Weight 99 kg Intake: IV 1015 1140 95 Dextrose 5% in Water 1, 825 900 75 000 ml @ 75 mls/hr IV . [id number] [facility] with Sodium Bicarb (1 Meq/ml) 150 ml Rx#:[id number] Sodium Chloride 0.9% 1, 90 240 20 000 ml @ 20 mls/hr IV . Q24H [facility] Rx#:[id number] metroNIDAZOLE-NS PMX 500 100 mg In Saline 1 100ml.bag @ 100 mls/hr IVPB Q8HR [facility] Rx#:[id number] Intake, IV Titration 962.617 203.074 Amount Calcium Gluconate in NaCl 100 2 gm In Saline 1 100ml. bag @ 100 mls/hr IVPB ONCE ONE Rx#:[id number] Cefepime 1 gm In Sodium 50 Chloride 0.9% 50 ml @ 12. 5 mls/hr IVPB Q12HR [facility] Rx#:[id number] DOBUTamine DRIP 500 mg In 208.087 Dextrose/Water 1 250ml. bag @ 2.5 MCG/KG/MIN 6. 975 mls/hr IV .Q24H [facility] Rx#:[id number] Furosemide 100 mg In 183.75 184.5 Sodium Chloride 0.9% 90 ml @ 15 MG/HR 15 mls/hr IV .Q6H40M [facility] Rx#: [id number] Norepinephrine 32 mg In 75.655 18.574 Sodium Chloride 0.9% 218 ml @ 0.05 MCG/KG/MIN 2.18 mls/hr IV .Q24H [facility] Rx#: [id number] metroNIDAZOLE-NS PMX 500 100 mg In Saline 1 100ml.bag @ 100 mls/hr IVPB Q8HR [facility] Rx#:[id number] propofoL 1,000 mg In 245.125 Empty Bag 1 bag @ 5 MCG/ KG/MIN 2.85 mls/hr IV . Q24H [facility] Rx#:[id number] Oral 120 Other 80 Output: Gastric Drainage 350 50 Urine 1470 1270 25 Stool 20 Other: Voiding Method Indwelling Catheter Indwelling Catheter Indwelling Catheter ABP, PAP, CO, CI - Last Documented Arterial Blood Pressure 91/38 - Exam No acute distress, unresponsive, with an orally placed endotracheal tube. HEENT examination is grossly unremarkable. Neck supple. Full range of motion. No adenopathy thyromegaly or neck vein distention. Cardiovascular examination reveals regular rhythm rate. S1-S2 normal. No S3 or S4. No discernible murmur noted. Heart sounds are distant. Heart rate 80 bpm. Lungs reveal coarse bilateral rhonchi. Respiratory rate about 35 g/m. No wheezes or crackles. Breath sounds are equal bilaterally. Saturations are 94%. Abdomen soft, without bowel sounds. Extremities are intact. No cyanosis clubbing or edema. Skin is without rash or lesion. Neurologic examination could not be properly assessed. Patient is poorly responsive. - Labs CBC & Chem 7: 12/27/21 04:45 12/27/21 04:35 Labs: Abnormal Lab Results - Last 24 Hours (Table) 12/26/21 12/26/21 12/26/21 Range/Units 12:00 18:05 23:40 WBC (3.8-10.6) k/uL RBC (4.30-5.90) m/uL Hgb (13.0-17.5) gm/dL Hct (39.0-53.0) % ABG pH (7.35-7.45) ABG pCO2 (35-45) mmHg ABG pO2 (83-108) mmHg ABG Total CO2 (19-24) mmol/L Sodium (137-145) mmol/L Potassium (3.5-5.1) mmol/L BUN (9-20) mg/dL Creatinine (0.66-1.25) mg/dL Glucose (74-99) mg/dL POC Glucose (mg/dL) 185 H 169 H 168 H (75-99) mg/dL Calcium (8.4-10.2) mg/dL Ionized Calcium Liberty (4.5-5.3) mg/dL 12/27/21 12/27/21 12/27/21 Range/Units 04:35 04:45 05:45 WBC 20.8 H (3.8-10.6) k/uL RBC 2.83 L (4.30-5.90) m/uL Hgb 8.7 L (13.0-17.5) gm/dL Hct 26.5 L (39.0-53.0) % ABG pH (7.35-7.45) ABG pCO2 (35-45) mmHg ABG pO2 (83-108) mmHg ABG Total CO2 (19-24) mmol/L Sodium 134 L (137-145) mmol/L Potassium 3.4 L (3.5-5.1) mmol/L BUN 120 H* (9-20) mg/dL Creatinine 4.28 H (0.66-1.25) mg/dL Glucose 143 H (74-99) mg/dL POC Glucose (mg/dL) (75-99) mg/dL Calcium 4.7 L* (8.4-10.2) mg/dL Ionized Calcium Liberty 2.9 L* (4.5-5.3) mg/dL 12/27/21 Range/Units 05:52 WBC (3.8-10.6) k/uL RBC (4.30-5.90) m/uL Hgb (13.0-17.5) gm/dL Hct (39.0-53.0) % ABG pH 7.48 H (7.35-7.45) ABG pCO2 32 L (35-45) mmHg ABG pO2 72 L (83-108) mmHg ABG Total CO2 25 H (19-24) mmol/L Sodium (137-145) mmol/L Potassium (3.5-5.1) mmol/L BUN (9-20) mg/dL Creatinine (0.66-1.25) mg/dL Glucose (74-99) mg/dL POC Glucose (mg/dL) (75-99) mg/dL Calcium (8.4-10.2) mg/dL Ionized Calcium Liberty (4.5-5.3) mg/dL Microbiology - Last 24 Hours (Table) 12/23/21 10:30 Blood Culture - Preliminary Blood No Growth after 72 hours 12/23/21 10:15 Blood Culture - Preliminary Blood No Growth after 72 hours 12/24/21 16:53 Gram Stain - Final Sputum Sputum Culture - Final Irma albicans Assessment and Plan Assessment: Acute hypoxemic respiratory failure, requiring intubation and mechanical ventilation, on December 22, likely secondary to chronic systolic CHF and aspiration pneumonia. Pseudomonas aeruginosa urinary tract infection, and likely sepsis. Wide-complex tachycardia, new since admission. Status post exploratory laparotomy, lysis of adhesions, repair of parastomal hernia, small bowel resection, 12/09/2021. Status post left ureteral stent, for hydronephrosis and renal calculi, 12/09/2021. Worsening transaminitis, which may relate to underlying cholecystitis. Anion gap metabolic acidosis, likely related to underlying sepsis. History of CAD, status post heart catheterization with stent placement. History of AICD placement. History of sleep apnea syndrome. History of hyperlipidemia. History of hypertension. History of colon cancer, status post colectomy with colostomy. History of deep venous thrombosis. Multiple other medical problems and comorbidities. Plan: Plan dated 12/12/2021. Patient is evaluated up on 5 N. The patient is transferred down to the intensive care unit for further monitoring and management. The patient has been seen by cardiology for his tachycardia arrhythmia. Labs, x-rays, and medications are reviewed. The patient is currently on Zosyn for his pseudomonas aeruginosa urinary tract infection, and possible sepsis. We will continue to follow make recommendations where appropriate. Prognosis is guarded. We will notified about this patient, from the hospital service. Plan dated 12/27/2021. I had a conversation with the patient's today. The patient is a DO NOT RESUSCITATE patient. The patient does have a hemodialysis catheter in, but apparently the did not want hemodialysis performed on him. Today we talked on the phone about comfort measures. She was in agreement. She is going to come to the hospital later today. She would like to be at his bedside. His overall prognosis remains very poor. His labs, chest x-ray, and medications are reviewed. I saw the patient last on December 12. On December 22, the patient required intubation and mechanical ventilation. Time with Patient: Greater than 30
--- NOTE | 2021-12-27 10:29 | P.PN ---
Subjective Progress Note Date: 12/27/21 Pts levophed downtitrated. Minimal ostomy output. UOP is good on lasix gtt. Gen: intubated, sedated HEENT: normocephalic, atraumatic, Resp: ventilator CVS: good distal perfusion x 4, GI: ostomy : fuentes catheter is present MSK: + pitting edema, no clubbing Assessment/plan: Urinary tract infection, complicated with pseudomonas and septic shock Obstructive uropathy status post stent placement 12/09 Small bowel obstruction Acute cholecystitis GI bleeding due to C diff with anticoagulation Acute hypoxic respiratory failure, possible underlying aspiration pneumonia -Patient completed antibiotics for UTI on 12/16 with Zosyn, - ID recs appreciated- cefepime -Urology recommendations appreciated: Needs outpatient follow-up, flomax -General surgery recommendations: On TPN - continue with levophed, vaso - Critical care recs appreciated: managing gabriel - stress dose steroids 12/27: patient remains in critical condition on levophed, vasopressin, d obutamine, lasix gtt. Pulm team followed up with patient's regarding goals of care, and they would like comfort measures as patient has a very poor prognosis. Ileus - check x-ray SHITAL on CKD 3 baseline Cr 2 Hyperkalemia - Follow Cr closely - Nephrology recs appreciated, HD cath in place but not a candidate at this time - Lasix gtt - likely multifactorial - on bicarb gtt Acute exacerbation systolic 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 fib - Cardiology recommendations - Amiodarone, mexelitine - Dobutamine - On aldactone - Lasix gtt - strict I's and O's, daily weights - Telemetry C. diff infection -On oral vancomycin, IV flagyl - ID recs Acute blood loss anemia -Status post packed red blood cells on 12/16 Severe protein calorie malnutrition -On TPN Hyperglycemia -Continue with sliding scale insulin and Levemir 15 units at night -Follow blood sugars -Hemoglobin A1c 5.7, will need repeat in 3 months Coronary artery disease status post stenting -Aspirin -Lipitor Hyperlipidemia Essential hypertension DNR DVT prophylaxis: Heparin Anticipated discharge: undetermined Anticipated discharge place: undetermined Objective - Vital Signs Vital signs: Vital Signs Temp 97.5 F L 12/27/21 08:00 Pulse 82 12/27/21 09:00 Resp 35 H 12/27/21 09:00 BP 101/57 12/27/21 09:00 Pulse Ox 94 L 12/27/21 09:00 Intake & Output 12/26/21 12/27/21 12/27/21 18:59 06:59 18:59 Intake Total 2057.617 1463.074 95 Output Total 1820 1340 25 Balance 237.617 123.074 70 Weight 99 kg Intake: IV 1015 1140 95 Dextrose 5% in Water 1, 825 900 75 000 ml @ 75 mls/hr IV . [id number] [facility] with Sodium Bicarb (1 Meq/ml) 150 ml Rx#:[id number] Sodium Chloride 0.9% 1, 90 240 20 000 ml @ 20 mls/hr IV . Q24H [facility] Rx#:[id number] metroNIDAZOLE-NS PMX 500 100 mg In Saline 1 100ml.bag @ 100 mls/hr IVPB Q8HR [facility] Rx#:[id number] Intake, IV Titration 962.617 203.074 Amount Calcium Gluconate in NaCl 100 2 gm In Saline 1 100ml. bag @ 100 mls/hr IVPB ONCE ONE Rx#:[id number] Cefepime 1 gm In Sodium 50 Chloride 0.9% 50 ml @ 12. 5 mls/hr IVPB Q12HR [facility] Rx#:[id number] DOBUTamine DRIP 500 mg In 208.087 Dextrose/Water 1 250ml. bag @ 2.5 MCG/KG/MIN 6. 975 mls/hr IV .Q24H [facility] Rx#:[id number] Furosemide 100 mg In 183.75 184.5 Sodium Chloride 0.9% 90 ml @ 15 MG/HR 15 mls/hr IV .Q6H40M [facility] Rx#: [id number] Norepinephrine 32 mg In 75.655 18.574 Sodium Chloride 0.9% 218 ml @ 0.05 MCG/KG/MIN 2.18 mls/hr IV .Q24H [facility] Rx#: [id number] metroNIDAZOLE-NS PMX 500 100 mg In Saline 1 100ml.bag @ 100 mls/hr IVPB Q8HR [facility] Rx#:[id number] propofoL 1,000 mg In 245.125 Empty Bag 1 bag @ 5 MCG/ KG/MIN 2.85 mls/hr IV . Q24H [facility] Rx#:[id number] Oral 120 Other 80 Output: Gastric Drainage 350 50 Urine 1470 1270 25 Stool 20 Other: Voiding Method Indwelling Catheter Indwelling Catheter Indwelling Catheter ABP, PAP, CO, CI - Last Documented Arterial Blood Pressure 91/38 - Labs CBC & Chem 7: 12/27/21 04:45 12/27/21 04:35 Labs: Abnormal Lab Results - Last 24 Hours (Table) 12/26/21 12/26/21 12/26/21 Range/Units 12:00 18:05 23:40 WBC (3.8-10.6) k/uL RBC (4.30-5.90) m/uL Hgb (13.0-17.5) gm/dL Hct (39.0-53.0) % ABG pH (7.35-7.45) ABG pCO2 (35-45) mmHg ABG pO2 (83-108) mmHg ABG Total CO2 (19-24) mmol/L Sodium (137-145) mmol/L Potassium (3.5-5.1) mmol/L BUN (9-20) mg/dL Creatinine (0.66-1.25) mg/dL Glucose (74-99) mg/dL POC Glucose (mg/dL) 185 H 169 H 168 H (75-99) mg/dL Calcium (8.4-10.2) mg/dL Ionized Calcium Liberty (4.5-5.3) mg/dL 12/27/21 12/27/21 12/27/21 Range/Units 04:35 04:45 05:45 WBC 20.8 H (3.8-10.6) k/uL RBC 2.83 L (4.30-5.90) m/uL Hgb 8.7 L (13.0-17.5) gm/dL Hct 26.5 L (39.0-53.0) % ABG pH (7.35-7.45) ABG pCO2 (35-45) mmHg ABG pO2 (83-108) mmHg ABG Total CO2 (19-24) mmol/L Sodium 134 L (137-145) mmol/L Potassium 3.4 L (3.5-5.1) mmol/L BUN 120 H* (9-20) mg/dL Creatinine 4.28 H (0.66-1.25) mg/dL Glucose 143 H (74-99) mg/dL POC Glucose (mg/dL) (75-99) mg/dL Calcium 4.7 L* (8.4-10.2) mg/dL Ionized Calcium Liberty 2.9 L* (4.5-5.3) mg/dL 12/27/21 Range/Units 05:52 WBC (3.8-10.6) k/uL RBC (4.30-5.90) m/uL Hgb (13.0-17.5) gm/dL Hct (39.0-53.0) % ABG pH 7.48 H (7.35-7.45) ABG pCO2 32 L (35-45) mmHg ABG pO2 72 L (83-108) mmHg ABG Total CO2 25 H (19-24) mmol/L Sodium (137-145) mmol/L Potassium (3.5-5.1) mmol/L BUN (9-20) mg/dL Creatinine (0.66-1.25) mg/dL Glucose (74-99) mg/dL POC Glucose (mg/dL) (75-99) mg/dL Calcium (8.4-10.2) mg/dL Ionized Calcium Liberty (4.5-5.3) mg/dL Microbiology - Last 24 Hours (Table) 12/23/21 10:30 Blood Culture - Preliminary Blood No Growth after 72 hours 12/23/21 10:15 Blood Culture - Preliminary Blood No Growth after 72 hours 12/24/21 16:53 Gram Stain - Final Sputum Sputum Culture - Final Irma albicans
[2021-12-27] MEDS ORDERED: MORPHINE SULFATE 4 MG/ML SYRINGE IVP ONE (11:03)
[2021-12-27] MEDS ORDERED: LORazepam 2 MG/ML INJ IV PRN (11:03)
[2021-12-27] MEDS ORDERED: MORPHINE SULFATE 4 MG/ML SYRINGE IV PRN (11:03)
[2021-12-27] MEDS ORDERED: ATROPINE OPHTH SOLN 1% 5ML BTL SUBLINGUAL PRN (11:03)
[2021-12-27] MEDS ORDERED: SCOPOLAMINE 1 MG/72 HR PATCH TRANSDERM SCH (11:15)
[2021-12-27] MEDS ORDERED: MORPHINE SULFATE (100 MG/2 ML) 100 MG in SODIUM CHLORIDE 0.9% 100 ML IV SCH (11:15)
[2021-12-27 11:41] VITALS: BP 89/54; PULSE 85; RESP 34
--- NOTE | 2021-12-27 15:14 | P.DS ---
Providers Date of admission: 12/08/21 11:53 Expected date of discharge: 12/27/21 Attending physician: Aparna Cee DO Consults: 12/08/21 11:54 Consult Physician Routine Consulting Provider: Jostin Bui Consult Reason/Comments: SBO Do you want consulting provider notified?: Yes Consult Physician Routine Consulting Provider: Tarik Burgess Consult Reason/Comments: renal calculus Do you want consulting provider notified?: Already Contacted 12/12/21 10:12 Consult Physician Urgent Consulting Provider: Bert Coulter Consult Reason/Comments: EKG shows wide complex tachycardia, new bundle branch block Do you want consulting provider notified?: Yes 12/23/21 08:04 Consult Physician Routine Consulting Provider: Stephani Hickman Consult Reason/Comments: SHITAL on CKD Do you want consulting provider notified?: Yes 12/23/21 08:06 Consult Physician Routine Consulting Provider: Amol Rodrigues Consult Reason/Comments: C diff with recent ABX use Do you want consulting provider notified?: Yes 12/24/21 15:06 Consult Physician Urgent Consulting Provider: Clinton Lovett Consult Reason/Comments: dialysis cath Do you want consulting provider notified?: Yes Primary care physician: Denise Fay MD Hospital Course: Urinary tract infection, complicated with pseudomonas and septic shock Obstructive uropathy status post stent placement 12/09 Small bowel obstruction Acute cholecystitis GI bleeding due to C diff with anticoagulation Acute hypoxic respiratory failure, possible underlying aspiration pneumonia SHITAL on CKD 3 baseline Cr 2 Hyperkalemia Acute exacerbation systolic 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 fib C. diff infection Acute blood loss anemia Severe protein calorie malnutrition Hyperglycemia Coronary artery disease status post stenting Hyperlipidemia Essential hypertension 80 year old man who initially presented with symptoms of sepsis was found to have obstructive uropathy and L hydronephrosis as well as SBO secondary to adhesions. He was taken to the OR by urology on 12/09 for NUS stent placement, then again on same day to OR for lysis of adhesions, small bowel resection and repair of parastomal hernia. Subsequently he was admitted and monitored in the ICU, pending stool/ostomy output while being treated with abx for UTI which grew pseudomonas and NGT for decompression. Once he had minimal output, he was started on a CLD and was advanced as far as FLD before he developed poor output again and made NPO. Supplemented with TPN via PICC line during this time. While in the ICU patients hospital cours was complicated by sustained VTach requiring amio gtt and lidocaine gtt. Pts hospital course was subsequently complicated by c diff infection, which then became fulminant. Patient was started on oral vancomycin, but continued to develop worsening respiratory failure and decreased stool output. Ultimately, he was re-intubated requiring pressors maxing out with the need of 3 pressors. Oxygenation did not improve with aggressive diuresis. Given patients poor clinical progression, a GoC conversation with the was had, and it was decided to transition the patient to comfort care. Pt at 1226 on 12/27 due to complications of small bowel obstruction. See same day progress note for Phx. Plan - Discharge Summary Discharge Rx Participant: No New Discharge Prescriptions: No Action Atorvastatin [Lipitor] 40 mg PO HS Finasteride [Proscar] 5 mg PO DAILY Metoprolol Tartrate [Lopressor] 12.5 mg PO BID Tamsulosin [Flomax] 0.4 mg PO HS calcitrioL [Rocaltrol] 0.25 mcg PO WE@1200 Spironolactone 12.5 mg PO DAILY Calcium Acetate 667 mg PO W/BRKFST HYDROcodone/APAP 5-325MG [[place] 5-325] 1 tab PO Q6HR PRN 3 Days #12 tab PRN Reason: Pain Nitrofurantoin Macrocrystal [Nitrofurantoin] 100 mg PO TID Cholecalciferol [Vitamin D3 (25 Mcg = 1000 Iu)] 50 mcg PO DAILY@1200 Amiodarone [Cordarone] 200 mg PO BID Sodium Bicarbonate Tab 650 mg PO TID Clopidogrel [Plavix] 75 mg PO DAILY Apixaban [Eliquis] 5 mg PO BID Cephalexin [Keflex] 500 mg PO Q6HR 10 Days #40 cap Docusate [Colace] 300 mg PO DAILY Ondansetron Odt [Zofran Odt] 4 mg PO Q6H PRN PRN Reason: Nausea Discharge Medication List Atorvastatin [Lipitor] 40 mg PO HS 05/24/16 [History] Amiodarone [Cordarone] 200 mg PO BID 06/13/21 [History] Cholecalciferol [Vitamin D3 (25 Mcg = 1000 Iu)] 50 mcg PO DAILY@1200 06/13/21 [History] Clopidogrel [Plavix] 75 mg PO DAILY 06/13/21 [History] Finasteride [Proscar] 5 mg PO DAILY 06/13/21 [History] Metoprolol Tartrate [Lopressor] 12.5 mg PO BID 06/13/21 [History] Sodium Bicarbonate Tab 650 mg PO TID 06/13/21 [History] Tamsulosin [Flomax] 0.4 mg PO HS 06/13/21 [History] Apixaban [Eliquis] 5 mg PO BID 07/16/21 [History] Calcium Acetate 667 mg PO W/BRKFST 12/01/21 [History] Cephalexin [Keflex] 500 mg PO Q6HR 10 Days #40 cap 12/01/21 [Rx] HYDROcodone/APAP 5-325MG [[place] 5-325] 1 tab PO Q6HR PRN 3 Days #12 tab 12/01/21 [Rx] Spironolactone 12.5 mg PO DAILY 12/01/21 [History] calcitrioL [Rocaltrol] 0.25 mcg PO WE@1200 12/01/21 [History] Nitrofurantoin Macrocrystal [Nitrofurantoin] 100 mg PO TID 12/07/21 [History] Docusate [Colace] 300 mg PO DAILY 12/08/21 [History] Ondansetron Odt [Zofran Odt] 4 mg PO Q6H PRN 12/08/21 [History] Follow up Appointment(s)/Referral(s): Rogers Cool MD [STAFF PHYSICIAN] - 2 Weeks [facility], [NON-STAFF] - Denise Fay MD [Primary Care Provider] - 1-2 days Discharge Disposition: - Preliminary Cause of Preliminary Cause of : Small Bowel Obstruction
== END 2021-12-27 13:20 | disposition expired | DRG 853 ==
LOC: EC 09:06 → 5NMEDONC 11:53 → 2SICU 12-12 11:01
PROVIDERS: ADMIT Internal Medicine; ATTEND Internal Medicine
PROC: 0BNP0ZZ Release Left Pleura, Open Approach (ICD-10-PCS; 2021-12-09)
PROC: 0BNN0ZZ Release Right Pleura, Open Approach (ICD-10-PCS; 2021-12-09)
PROC: 0WQF0ZZ Repair Abdominal Wall, Open Approach (ICD-10-PCS; 2021-12-09)
PROC: 0D9670Z Drainage of Stomach with Drainage Device, Via Natural or Artificial Opening (ICD-10-PCS; 2021-12-09)
PROC: 0DT80ZZ Resection of Small Intestine, Open Approach (ICD-10-PCS; principal; 2021-12-09 09:20)
PROC: 0T778DZ Dilation of Left Ureter with Intraluminal Device, Via Natural or Artificial Opening Endoscopic (ICD-10-PCS; 2021-12-09 09:20)
PROC: 05H633Z Insertion of Infusion Device into Left Subclavian Vein, Percutaneous Approach (ICD-10-PCS; 2021-12-12)
PROC: 3E033XZ Introduction of Vasopressor into Peripheral Vein, Percutaneous Approach (ICD-10-PCS; 2021-12-12)
PROC: 30233N1 Transfusion of Nonautologous Red Blood Cells into Peripheral Vein, Percutaneous Approach (ICD-10-PCS; 2021-12-15)
PROC: 5A0935A Assistance with Respiratory Ventilation, Less than 24 Consecutive Hours, High Flow/Velocity Cannula (ICD-10-PCS; 2021-12-20)
PROC: 5A1955Z Respiratory Ventilation, Greater than 96 Consecutive Hours (ICD-10-PCS; 2021-12-22)
PROC: 0BH18EZ Insertion of Endotracheal Airway into Trachea, Via Natural or Artificial Opening Endoscopic (ICD-10-PCS; 2021-12-22)
PROC: 03HY32Z Insertion of Monitoring Device into Upper Artery, Percutaneous Approach (ICD-10-PCS; 2021-12-22)
PROC: 4A133B1 Monitoring of Arterial Pressure, Peripheral, Percutaneous Approach (ICD-10-PCS; 2021-12-22)
PROC: 4A133J1 Monitoring of Arterial Pulse, Peripheral, Percutaneous Approach (ICD-10-PCS; 2021-12-22)
PROC: 06HY33Z Insertion of Infusion Device into Lower Vein, Percutaneous Approach (ICD-10-PCS; 2021-12-24)
DX: A41.9 Sepsis, unspecified organism (principal); E43 Unspecified severe protein-calorie malnutrition; I50.23 Acute on chronic systolic (congestive) heart failure; J69.0 Pneumonitis due to inhalation of food and vomit; J96.01 Acute respiratory failure with hypoxia; N17.0 Acute kidney failure with tubular necrosis; R65.21 Severe sepsis with septic shock; A04.72 Enterocolitis due to Clostridium difficile, not specified as recurrent; D62 Acute posthemorrhagic anemia; E87.1 Hypo-osmolality and hyponatremia; E87.4 Mixed disorder of acid-base balance; I13.0 Hypertensive heart and chronic kidney disease with heart failure and stage 1 through stage 4 chronic kidney disease, or unspecified chronic kidney disease; I47.1 Supraventricular tachycardia; I47.2 Ventricular tachycardia; J44.0 Chronic obstructive pulmonary disease with (acute) lower respiratory infection; K56.7 Ileus, unspecified; K43.3 Parastomal hernia with obstruction, without gangrene; K56.699 Other intestinal obstruction unspecified as to partial versus complete obstruction; K80.00 Calculus of gallbladder with acute cholecystitis without obstruction; K82.1 Hydrops of gallbladder; N13.6 Pyonephrosis; R18.8 Other ascites; Q43.8 Other specified congenital malformations of intestine; Z99.11 Dependence on respirator [ventilator] status; K92.2 Gastrointestinal hemorrhage, unspecified; D68.32 Hemorrhagic disorder due to extrinsic circulating anticoagulants; Z51.5 Encounter for palliative care; Z66 Do not resuscitate; B96.5 Pseudomonas (aeruginosa) (mallei) (pseudomallei) as the cause of diseases classified elsewhere; Z68.35 Body mass index [BMI] 35.0-35.9, adult; E11.22 Type 2 diabetes mellitus with diabetic chronic kidney disease; E11.65 Type 2 diabetes mellitus with hyperglycemia; N18.30 Chronic kidney disease, stage 3 unspecified; E77.8 Other disorders of glycoprotein metabolism; E78.5 Hyperlipidemia, unspecified; E83.51 Hypocalcemia; E86.0 Dehydration; E87.5 Hyperkalemia; E87.6 Hypokalemia; E88.09 Other disorders of plasma-protein metabolism, not elsewhere classified; I25.10 Atherosclerotic heart disease of native coronary artery without angina pectoris; I25.2 Old myocardial infarction; I25.5 Ischemic cardiomyopathy; I27.20 Pulmonary hypertension, unspecified; I45.4 Nonspecific intraventricular block; I48.0 Paroxysmal atrial fibrillation; K66.0 Peritoneal adhesions (postprocedural) (postinfection); K44.9 Diaphragmatic hernia without obstruction or gangrene; N40.0 Benign prostatic hyperplasia without lower urinary tract symptoms; Z79.01 Long term (current) use of anticoagulants; Z79.02 Long term (current) use of antithrombotics/antiplatelets; Z79.4 Long term (current) use of insulin; Z79.82 Long term (current) use of aspirin; Z79.899 Other long term (current) drug therapy; Z80.3 Family history of malignant neoplasm of breast; Z82.49 Family history of ischemic heart disease and other diseases of the circulatory system; Z85.048 Personal history of other malignant neoplasm of rectum, rectosigmoid junction, and anus; Z85.828 Personal history of other malignant neoplasm of skin; Z86.718 Personal history of other venous thrombosis and embolism; Z87.442 Personal history of urinary calculi; Z93.3 Colostomy status; Z95.5 Presence of coronary angioplasty implant and graft; Z95.810 Presence of automatic (implantable) cardiac defibrillator; R74.01 Elevation of levels of liver transaminase levels; T45.515A Adverse effect of anticoagulants, initial encounter
CPT/HCPCS: 36415; 36600; 71045; 74018; 74176; 76705; 80048; 80053; 81001; 82150; 82272; 82330; 82553; 82805; 83036; 83605; 83690; 83735; 84100; 84132; 84134; 84145; 84443; 84478; 84484; 85025; 85027; 85610; 85730; 86140; 86704; 86706; 86850; 86900; 86901; 86920; 87040; 87070; 87077; 87086; 87186; 87205; 87324; 87340; 88307; 93005; 93306; 94002; 94003; 94660; 96361; 96365; 96375; 99285